=== PATIENT | female | born 1950 | race Caucasian/White ===

== ENCOUNTER 2017-08-25 22:06 | Emergency (ER) | payer OTHER ==
[2017-08-25 22:57] LABS: Urine Blood NEGATIVE (NEG); Urine Glucose NEGATIVE (NEG); Urine Protein NEGATIVE (NEG)
[2017-08-25 23:21] LABS: Urine Bacteria <20 /HPF (<20); Urine Culture Reflex Order NOT NEEDED; Urine RBC <5 /HPF (NONE SEEN)
[2017-08-25 23:25] LABS: Absolute Lymphocytes (CBC) 2.9 K/uL (0.7-4.9); Absolute Neutrophil 5.9 K/uL (1.8-8.0); Eosinophils % 3.3 % (0-4.4); Hematocrit 38.2 % (36.0-45.0); Lymphocytes % 28.5 % (15.3-44.8); MCH 25.4 pg (27.0-35.0); MCV 78.6 fL (80-100); MPV 9.3 fL (7.6-11.3); Monocytes % 9.6 % (3.3-12.3); RBC Red Blood Cell Count 4.86 M/uL (3.86-4.86)
[2017-08-25 23:37] LABS: Potassium 3.7 mEq/L (3.6-5.0)
[2017-08-25 23:43] LABS: Albumin 4.3 g/dL (3.2-5.5); Bilirubin Direct 0.1 mg/dL (0-0.2); Bilirubin Total 0.3 mg/dL (0.3-1.2); Protein, Total 7.4 g/dL (6.0-8.3)
[2017-08-26] MEDS ORDERED: KETOROLAC 30 MG/ML INJ ONE (00:24)
[2017-08-26] MEDS ORDERED: NA CHLORIDE 0.9% 1,000 ML ONE (00:25)
[2017-08-26] MEDS ORDERED: METRONIDAZOLE 500mg IVPB 500 MG/100 ML BAG IV ONE (00:29)
[2017-08-26] MEDS ORDERED: CEFTRIAXONE/SWI 1gm 1 GM/10 ML SYR ONE (00:29)
--- NOTE | 2017-08-26 01:25 | EDPHYS ---
Physician Documentation [facility] Name: Kali Kumar Age: 67 yrs Sex: Female : 1950 Arrival Date: 08/25/2017 Time: 22:09 Bed 5 Private MD: Harry Panchal ED Physician Ede Valdez HPI: 08/26 00:04 This 67 yrs old Female presents to ER via Ambulatory with complaints of gs Abdominal Pain - low. 00:04 The patient presents with abdominal pain in the lower abdomen. Onset: The gs symptoms/episode began/occurred 3 day(s) ago, and became persistent. The symptoms do not radiate. Associated signs and symptoms: Pertinent negatives: nausea, vomiting, and diarrhea, fever. The symptoms are described as crampy. Modifying factors: The symptoms are alleviated by nothing, the symptoms are aggravated by nothing. Severity of pain: At its worst the pain was moderate in the emergency department the pain is unchanged. The patient has experienced similar episodes in the past, a few times, and the symptoms today are exactly the same, diverticulitis. Historical: - Allergies: 08/25 22:22 Codeine; lp1 - Home Meds: 22:22 levothyroxine 100 mcg tab 1 tab once daily [Active]; Plavix 75 mg Oral tab 1 tab once lp1 daily [Active]; metoprolol tartrate 50 mg Oral tab 1 tab 2 times per day [Active]; Diovan 160 mg Oral tab 1 tab once daily [Active]; Diovan 80 mg Oral tab nightly [Active]; Norvasc 10 mg Oral tab 1 tab once daily [Active]; Effexor Oral 75 mg nightly [Active]; Crestor 40 mg oral tab nightly [Active]; - PMHx: 22:22 Hyperlipidemia; Hypertension; Hypothyroidism; lp1 - PSHx: 22:22 Hysterectomy; ; Cholecystectomy; bladder suspension; lp1 - Immunization history:: Adult Immunizations up to date. - Social history:: Smoking status: Patient/guardian denies using tobacco. ROS: 08/26 00:04 All other systems are negative. gs Exam: 00:04 Head/Face: Normocephalic, atraumatic. Eyes: Pupils equal round and reactive to light, gs extra-ocular motions intact. Lids and lashes normal. Conjunctiva and sclera are non-icteric and not injected. Cornea within normal limits. Periorbital areas with no swelling, redness, or edema. ENT: Nares patent. No nasal discharge, no septal abnormalities noted. Tympanic membranes are normal and external auditory canals are clear. Oropharynx with no redness, swelling, or masses, exudates, or evidence of obstruction, uvula midline. Mucous membranes moist. Neck: Trachea midline, no thyromegaly or masses palpated, and no cervical lymphadenopathy. Supple, full range of motion without nuchal rigidity, or vertebral point tenderness. No Meningismus. Chest/axilla: Normal chest wall appearance and motion. Nontender with no deformity. No lesions are appreciated. Cardiovascular: Regular rate and rhythm with a normal S1 and S2. No gallops, murmurs, or rubs. Normal PMI, no JVD. No pulse deficits. Respiratory: Lungs have equal breath sounds bilaterally, clear to auscultation and percussion. No rales, rhonchi or wheezes noted. No increased work of breathing, no retractions or nasal flaring. Back: No spinal tenderness. No costovertebral tenderness. Full range of motion. Skin: Warm, dry with normal turgor. Normal color with no rashes, no lesions, and no evidence of cellulitis. MS/ Extremity: Pulses equal, no cyanosis. Neurovascular intact. Full, normal range of motion. Neuro: Awake and alert, GCS 15, oriented to person, place, time, and situation. Cranial nerves II-XII grossly intact. Motor strength 5/5 in all extremities. Sensory grossly intact. Cerebellar exam normal. Normal gait. 00:04 Constitutional: The patient appears alert, awake. 00:04 Abdomen/GI: Palpation: mild abdominal tenderness, in the left lower quadrant, rebound tenderness, is not appreciated. Vital Signs: 08/25 22:18 BP 193 / 71; Pulse 68; Resp 18; Temp 97.7(O); Pulse Ox 99% on R/A; Weight 88.45 kg; lp1 Height 4 ft. 11 in. (149.86 cm); Pain 8/10; 23:18 BP 154 / 52; Pulse 60; Pulse Ox 100% on R/A; Pain 0/10; bs1 08/26 00:18 BP 155 / 55; Pulse 59; Resp 16; Pulse Ox 99% on R/A; Pain 3/10; bs1 01:18 BP 154 / 53; Pulse 59; Pulse Ox 99% on R/A; Pain 0/10; bs1 04 22:18 Body Mass Index 39.38 (88.45 kg, 149.86 cm) lp1 MDM: 08/25 22:36 Patient medically screened. 08/26 00:04 Differential diagnosis: diverticulitis, pancreatitis, Peptic Ulcer Disease. Data gs reviewed: vital signs, nurses notes. Response to treatment: the patient's symptoms have markedly improved after treatment, and as a result, I will discharge patient. 08/25 22:37 Order name: Basic Metabolic Panel; Complete Time: 23:55 08/25 22:37 Order name: CBC with Diff; Complete Time: 23:55 08/25 22:37 Order name: Hepatic Function; Complete Time: 23:55 08/25 22:37 Order name: Lipase; Complete Time: 23:55 08/25 22:37 Order name: Urine Microscopic Only; Complete Time: 23:55 08/25 22:50 Order name: Urine Dipstick--Ancillary (enter results); Complete Time: 23:55 [facility] 08/25 22:37 Order name: IV Saline Lock; Complete Time: 23:06 08/25 22:37 Order name: Labs collected and sent; Complete Time: 23:06 08/25 22:37 Order name: Urine Dipstick-Ancillary (obtain specimen); Complete Time: 22:43 08/25 22:37 Order name: CT Stone Protocol gs Administered Medications: 00:08 Drug: TORadol 15 mg Route: IVP; Site: left antecubital; bs1 01:38 Follow up: Response: No adverse reaction bs1 01:42 Follow up: Response: No adverse reaction bs1 00:20 Drug: Rocephin - (cefTRIAXone) 1 grams Route: IVPB; Infused Over: 30 mins; Site: left bs1 antecubital; 01:41 Follow up: IV Status: Completed infusion bs1 00:20 Drug: Flagyl 500 mg Volume: 100 ml; Route: IVPB; Rate: 200 ml/hr; Infused Over: 30 bs1 mins; Site: left antecubital; 01:41 Follow up: IV Status: Completed infusion bs1 00:21 Drug: NS 0.9% 1000 ml Route: IV; Rate: 1 bolus; Site: left antecubital; bs1 01:41 Follow up: IV Status: Completed infusion bs1 Disposition: 08/26/17 01:24 Discharged to Home. Impression: Diverticular disease of large intestine without perforation or abscess. - Condition is Stable. - Discharge Instructions: Diverticulitis, [id number]. - Prescriptions for Flagyl 500 mg Oral Tablet - take 1 tablet by ORAL route every 6 hours for 10 days; 40 tablet. Keflex 500 mg Oral Capsule - take 1 capsule by ORAL route every 6 hours for 10 days; 40 capsule. - Medication Reconciliation Form, Thank You Letter, Antibiotic Education, Prescription Opioid Use form. - Follow up: Private Physician; When: 2 - 3 days; Reason: Re-evaluation by your physician. Signatures: Dispatcher [employer] Aide Chris, RN RN lp1 Ede Valdez MD MD Jolie Sanchez RN RN bs1
--- NOTE | 2017-08-26 01:25 | ER ---
Nurse's Notes [facility] Name: Kali Kumar Age: 67 yrs Sex: Female : 1950 Arrival Date: 08/25/2017 Time: 22:09 Bed 5 Private MD: Harry Panchal Diagnosis: Diverticular disease of large intestine without perforation or abscess Presentation: 08/25 22:17 Presenting complaint: Patient states: Pelvic pain that began today, urinary frequency, lp1 pain with urination; States diagnosed with UTI last week, did not complete antibiotic regimen. Transition of care: patient was not received from another setting of care. Onset of symptoms was August 25, 2017. Care prior to arrival: None. 22:17 Method Of Arrival: Ambulatory lp1 22:17 Acuity: ISAIAS 3 lp1 Historical: - Allergies: 22:22 Codeine; lp1 - Home Meds: 22:22 levothyroxine 100 mcg tab 1 tab once daily [Active]; Plavix 75 mg Oral tab 1 tab once lp1 daily [Active]; metoprolol tartrate 50 mg Oral tab 1 tab 2 times per day [Active]; Diovan 160 mg Oral tab 1 tab once daily [Active]; Diovan 80 mg Oral tab nightly [Active]; Norvasc 10 mg Oral tab 1 tab once daily [Active]; Effexor Oral 75 mg nightly [Active]; Crestor 40 mg oral tab nightly [Active]; - PMHx: 22:22 Hyperlipidemia; Hypertension; Hypothyroidism; lp1 - PSHx: 22:22 Hysterectomy; ; Cholecystectomy; bladder suspension; lp1 - Immunization history:: Adult Immunizations up to date. - Social history:: Smoking status: Patient/guardian denies using tobacco. Screenin:22 Abuse screen: Denies threats or abuse. Denies injuries from another. Nutritional lp1 screening: No deficits noted. Tuberculosis screening: No symptoms or risk factors identified. Fall Risk None identified. Assessment: 22:33 General: Appears in no apparent distress. uncomfortable, Behavior is calm, cooperative, bs1 appropriate for age. Pain: Complains of pain in bilateral lower abdomen Pain does not radiate. Neuro: Level of Consciousness is awake, alert, obeys commands, Oriented to person, place, time, situation, Appropriate for age. Cardiovascular: Denies chest pain, palpitations, shortness of breath, Heart tones S1 S2 present Capillary refill < 3 seconds Patient's skin is warm and dry. Respiratory: Airway is patent Trachea midline Respiratory effort is even, unlabored, Respiratory pattern is regular, symmetrical, Breath sounds are clear bilaterally. GI: Abdomen is round non-distended, Bowel sounds present X 4 quads. Abdomen is tender to palpation in bilateral lower abdomen Reports lower abdominal pain, Patient currently denies diarrhea, epigastric pain, gaseousness, nausea, vomiting. : Denies burning with urination, discharge, urinary frequency, vaginal bleeding. EENT: No deficits noted. Derm: No deficits noted. No signs and/or symptoms reported regarding the dermatologic system. Musculoskeletal: Circulation, motion, and sensation intact. Capillary refill < 3 seconds, Range of motion: intact in all extremities. 23:33 Reassessment: Patient appears in no apparent distress at this time. No changes from bs1 previously documented assessment. Patient and/or family updated on plan of care and expected duration. Pain level reassessed. Patient is alert, oriented x 3, equal unlabored respirations, skin warm/dry/pink. 08/26 00:33 Reassessment: Patient appears in no apparent distress at this time. Patient and/or bs1 family updated on plan of care and expected duration. Pain level reassessed. Patient is alert, oriented x 3, equal unlabored respirations, skin warm/dry/pink. 01:25 Reassessment: Patient appears in no apparent distress at this time. Patient and/or bs1 family updated on plan of care and expected duration. Pain level reassessed. Patient is alert, oriented x 3, equal unlabored respirations, skin warm/dry/pink. Patient states feeling better. Patient states symptoms have improved. Vital Signs: 08/25 22:18 BP 193 / 71; Pulse 68; Resp 18; Temp 97.7(O); Pulse Ox 99% on R/A; Weight 88.45 kg; lp1 Height 4 ft. 11 in. (149.86 cm); Pain 8/10; 23:18 BP 154 / 52; Pulse 60; Pulse Ox 100% on R/A; Pain 0/10; bs1 0406 00:18 BP 155 / 55; Pulse 59; Resp 16; Pulse Ox 99% on R/A; Pain 3/10; bs1 01:18 BP 154 / 53; Pulse 59; Pulse Ox 99% on R/A; Pain 0/10; bs1 08/25 22:18 Body Mass Index 39.38 (88.45 kg, 149.86 cm) lp1 ED Course: 08/25 22:09 Patient arrived in ED. am2 22:10 Harry Panchal DO is Private Physician. am2 22:18 Triage completed. lp1 22:18 Arm band placed on left wrist. lp1 22:27 Jolie Sanchez RN is Primary Nurse. bs1 22:32 Ede Valdez MD is Attending Physician. gs 22:33 Patient has correct armband on for positive identification. Placed in gown. Bed in low jd3 position. Call light in reach. Side rails up X 1. Adult w/ patient. 22:51 Radiology exam delayed due to IV insertion attempt and/or patient not having vm2 appropriate IV at this time. 23:14 CT Stone Protocol In Process Unspecified. EDMS 08/26 01:38 No provider procedures requiring assistance completed. IV discontinued, bleeding bs1 controlled, No redness/swelling at site. Pressure dressing applied. Administered Medications: 00:08 Drug: TORadol 15 mg Route: IVP; Site: left antecubital; bs1 01:38 Follow up: Response: No adverse reaction bs1 01:42 Follow up: Response: No adverse reaction bs1 00:20 Drug: Rocephin - (cefTRIAXone) 1 grams Route: IVPB; Infused Over: 30 mins; Site: left bs1 antecubital; 01:41 Follow up: IV Status: Completed infusion bs1 00:20 Drug: Flagyl 500 mg Volume: 100 ml; Route: IVPB; Rate: 200 ml/hr; Infused Over: 30 bs1 mins; Site: left antecubital; 01:41 Follow up: IV Status: Completed infusion bs1 00:21 Drug: NS 0.9% 1000 ml Route: IV; Rate: 1 bolus; Site: left antecubital; bs1 01:41 Follow up: IV Status: Completed infusion bs1 Outcome: 01:24 Discharge ordered by . gs 01:38 Discharged to home ambulatory. bs1 01:38 Condition: stable 01:38 Discharge instructions given to patient, Instructed on discharge instructions, follow up and referral plans. medication usage, Demonstrated understanding of instructions, follow-up care, medications, Prescriptions given X 2. 01:40 Patient left the ED. bs1 Signatures: Dispatcher [employer] EDMS Aide Cook RN RN lp1 Nga Orr Victoria 2 Ede Valdez MD MD gs Davies, Jonathon, RN RN jd3 Jolie Sanchez RN RN bs1 Corrections: (The following items were deleted from the chart) 08/25 22:52 22:48 Patient moved to [address]
[2017-08-26 01:45] VITALS: TEMP 97.7
[2017-08-26 01:47] VITALS: O2SAT 99
[2017-08-26 01:48] VITALS: BP 154/53
--- NOTE | 2017-08-26 08:43 | RAD REPORT ---
EXAM DESCRIPTION: CT - Stone Protocol - 08/26/2017 6:12 am CLINICAL HISTORY: Flank pain. COMPARISON: None. TECHNIQUE: Axial images were obtained without oral or IV contrast. Lack of contrast limits solid org an and vascular assessment. The aepma-ch-cutu spans the entirety of the system partially obscuring uppermost abdomen and lung bases. Coronal reformatted images were obtained and reviewed. All CT scans are performed using dose optimization technique as appropriate and may include automated exposure control or mA/KV adjustment according to patient size. FINDINGS: The lower lung lockhart are clear. Cholecystectomy clips. Imaged portions of the liver and spleen show no suspicious findings on non-contrast imaging. The panc reas and adrenal glands are normal. No pathologic lymphadenopathy in the abdomen or pelvis. Punctate left renal stone. No hydronephrosis involving either kidney. No bowel obstruction, free air, free fluid or abscess. Prominent colonic diverticulosis is present. M ild pericolonic inflammatory changes involving the descending colon seen compatible with mild acute d iverticulitis. The appendix is not identified as a discrete structure, however, no secondary findings of appendicit is are identified. Aortoiliac atherosclerosis. IMPRESSION: Mild acute diverticulitis is seen involving the descending colon. No abscess identified. Punctate left renal calculus without hydronephrosis. Heavy atherosclerosis.
== END 2017-08-26 01:40 | disposition home or self-care (01) ==
LOC: ER 22:06
DX: K57.30 Diverticulosis of large intestine without perforation or abscess without bleeding (principal); I10 Essential (primary) hypertension; E78.5 Hyperlipidemia, unspecified; E03.9 Hypothyroidism, unspecified; Z88.5 Allergy status to narcotic agent
CPT/HCPCS: 36415; 74176; 76377; 80048; 80076; 83690; 85025; 96361; 96365; 96368; 96375; 99283; J0696; J7030; 81003; 81015

== ENCOUNTER 2017-11-04 03:59 | Emergency (ER) | payer OTHER ==
[2017-11-04] MEDS ORDERED: FENTANYL CITR 100 MCG/2 ML ONE (04:36)
[2017-11-04] MEDS ORDERED: NA CHLORIDE 0.9% 1,000 ML ONE (04:36)
[2017-11-04] MEDS ORDERED: ONDANSETRON 4 MG/2 ML VIAL ONE (04:36)
[2017-11-04] MEDS ORDERED: METRONIDAZOLE 500mg IVPB 500 MG/100 ML BAG IV ONE (04:37)
[2017-11-04] MEDS ORDERED: CIPROFLOXACIN 400mg IV 400 MG/200 ML BAG IV ONE (04:37)
[2017-11-04 04:41] LABS: Absolute Lymphocytes (CBC) 1.4 K/uL (0.7-4.9); Absolute Neutrophil 7.9 K/uL (1.8-8.0); Basophils % 0.6 % (0-1.3); Eosinophils % 2.6 % (0-4.4); Hematocrit 37.3 % (36.0-45.0); Lymphocytes % 13.2 % (15.3-44.8); MCV 81.1 fL (80-100); MPV 9.4 fL (7.6-11.3); Monocytes % 9.1 % (3.3-12.3)
[2017-11-04 04:51] LABS: Bicarbonate 25 mEq/L (21-31); Glucose Level 127 mg/dL (65-120); Lipase 29 U/L (22-51); Potassium 3.7 mEq/L (3.6-5.0); Sodium Level 140 mEq/L (135-145)
[2017-11-04 04:53] LABS: Protime INR 1.03
[2017-11-04 04:57] LABS: ALT/SGPT 15 IU/L (10-60); AST/SGOT 18 IU/L (10-42); Albumin 4.4 g/dL (3.2-5.5); Alkaline Phosphatase 64 IU/L (42-121); Amylase Level 41 U/L (28-100); BUN Blood Urea Nitrogen 22 mg/dL (6-20); Bilirubin Direct < 0.1 mg/dL (0-0.2); Bilirubin Total 0.2 mg/dL (0.3-1.2); Protein, Total 7.9 g/dL (6.0-8.3)
[2017-11-04 05:07] LABS: Magnesium 2.3 mg/dL (1.8-2.5)
[2017-11-04 05:39] LABS: Urine Blood NEGATIVE (NEG); Urine Glucose NEGATIVE (NEG); Urine Protein NEGATIVE (NEG); Urine Specific Gravity 1.015 (1.005-1.030)
[2017-11-04 06:04] LABS: Urine Bacteria <20 /HPF (<20); Urine Culture Reflex Order NOT NEEDED; Urine RBC <5 /HPF (NONE SEEN)
[2017-11-04] MEDS ORDERED: CEFTRIAXONE/SWI 1gm 1 GM/10 ML SYR ONE ×2 (06:56→07:35)
--- NOTE | 2017-11-04 07:18 | ER ---
Nurse's Notes [facility] Name: Kali Kumar Age: 67 yrs Sex: Female : 1950 Arrival Date: 11/04/2017 Time: 04:02 Bed 14 Private MD: Harry Panchal Diagnosis: Abdominal tenderness;Diverticular disease of intestine;Diverticulitis of large intestine without perforation or abscess without bleeding Presentation: 11/04 04:16 Presenting complaint: Patient states: She started having abd pain yesterday morning, pt ea reports the pain has gotten worse throughout the night. Reports history of diverticulitis. "I have had problems but this cramping is the worst I have had". Transition of care: patient was not received from another setting of care. Onset of symptoms was November 04, 2017. Risk Assessment: Do you want to hurt yourself or someone else? Patient reports no desire to harm self or others. Initial Sepsis Screen: Does the patient meet any 2 criteria? No. Patient's initial sepsis screen is negative. Does the patient have a suspected source of infection? No. Patient's initial sepsis screen is negative. Care prior to arrival: None. 04:16 Method Of Arrival: Ambulatory ea 04:16 Acuity: ISAIAS 3 ea Triage Assessment: 04:20 General: Appears uncomfortable, Behavior is calm, cooperative, appropriate for age. ea Pain: Complains of pain in left upper quadrant and left lower quadrant Pain currently is 8 out of 10 on a pain scale. Quality of pain is described as crampy, Pain began 1 day ago. Is continuous. EENT: No signs and/or symptoms were reported regarding the EENT system. Neuro: Level of Consciousness is awake, alert, obeys commands, Oriented to person, place, time, situation. Cardiovascular: Heart tones S1 S2 present Patient's skin is warm and dry. Respiratory: Airway is patent Respiratory effort is even, unlabored, Respiratory pattern is regular, symmetrical, Breath sounds are clear bilaterally. GI: Abdomen is non-distended, Bowel sounds present X 4 quads. Abd is soft X 4 quads Abdomen is tender to palpation in left upper quadrant, right lower quadrant and left lower quadrant Patient currently denies diarrhea, nausea, vomiting. : No signs and/or symptoms were reported regarding the genitourinary system. Derm: Skin is pink, warm \\T\\ dry. Musculoskeletal: Circulation, motion, and sensation intact. Historical: - Allergies: 04:20 Codeine; ea - Home Meds: 04:20 Crestor 40 mg Oral tab nightly [Active]; Diovan 160 mg Oral tab 1 tab once daily ea [Active]; Diovan 80 mg Oral tab nightly [Active]; Effexor Oral 75 mg nightly [Active]; levothyroxine 100 mcg tab 1 tab once daily [Active]; Norvasc 10 mg Oral tab 1 tab once daily [Active]; Plavix 75 mg Oral tab 1 tab once daily [Active]; metoprolol tartrate 50 mg Oral tab 1 tab 2 times per day [Active]; - PMHx: 04:20 Hyperlipidemia; Hypertension; Hypothyroidism; ea - PSHx: 04:20 Hysterectomy; ; Cholecystectomy; Bladder suspension; ea - Immunization history:: Adult Immunizations up to date. - Social history:: Smoking status: Patient/guardian denies using tobacco. - Ebola Screening: : No symptoms or risks identified at this time. Screenin:24 Abuse screen: Denies threats or abuse. Nutritional screening: No deficits noted. ea Tuberculosis screening: No symptoms or risk factors identified. Fall Risk None identified. Assessment: 04:20 Reassessment: No changes from previously documented assessment. see triage assessment. bb 06:58 Reassessment: Patient and/or family updated on plan of care and expected duration. Pain bb level reassessed. Patient is alert, oriented x 3, equal unlabored respirations, skin warm/dry/pink. pt resting quietly, awaiting diagnostic results. 07:10 Reassessment: Patient appears in no apparent distress at this time. Patient and/or em family updated on plan of care and expected duration. Pain level reassessed. Patient is alert, oriented x 3, equal unlabored respirations, skin warm/dry/pink. Patient denies pain at this time. Patient states feeling better. Vital Signs: 04:15 BP 136 / 103; Pulse 66; Resp 18 S; Temp 98(O); Pulse Ox 100% on R/A; Weight 86.18 kg; ea Height 4 ft. 11 in. (149.86 cm); Pain 8/10; 04:24 BP 162 / 54; Pulse 59; Resp 18; Pulse Ox 99% on R/A; ea 06:59 BP 163 / 57; Pulse 68; Resp 18 S; Pulse Ox 100% on R/A; Pain 2/10; bb 07:10 BP 160 / 60; Pulse 67; Resp 18; Pulse Ox 99% on R/A; Pain 0/10; em 04:15 Body Mass Index 38.37 (86.18 kg, 149.86 cm) ea ED Course: 04:02 Patient arrived in ED. am2 04:02 Harry Panchal DO is Private Physician. am2 04:15 Darlin Martínez, RN is Primary Nurse. ea 04:15 Patient placed in an exam room, on a stretcher, on pulse oximetry. ea 04:18 Triage completed. ea 04:20 Harish Welsh MD is Attending Physician. abilio 04:24 Patient has correct armband on for positive identification. Bed in low position. Call ea light in reach. Side rails up X 1. 04:26 Inserted saline lock: 20 gauge in right antecubital area, using aseptic technique. jd3 Blood collected. 04:51 X-ray completed. Portable x-ray completed in exam room. Patient tolerated procedure kw well. 04:51 XRAY Chest (1 view) In Process Unspecified. EDMS 06:[address] via wheelchair. kw1 06:26 CT completed. Patient tolerated procedure well. Patient moved back from CT. kw1 06:30 CT Abd/Pelvis - W/Contrast In Process Unspecified. EDMS 07:17 Harry Panchal DO is Referral Physician. abilio 07:20 Report given to Chris MULTANI. ea Administered Medications: 04:40 Drug: Zofran 4 mg Route: IVP; Site: right antecubital; ea 05:19 Follow up: Response: No adverse reaction ea 04:47 Drug: NS 0.9% 1000 ml Route: IV; Rate: 1 bolus; Site: right antecubital; ea 07:49 Follow up: IV Status: Completed infusion; IV Intake: 1000ml em 04:50 Drug: Cipro 400 mg Volume: 200 ml; Route: IVPB; Infused Over: 60 mins; Site: right jd3 antecubital; 07:50 Follow up: Response: No adverse reaction; IV Status: Completed infusion; IV Intake: em 200ml 04:50 Drug: Flagyl 500 mg Volume: 100 ml; Route: IVPB; Rate: 200 ml/hr; Infused Over: 30 jd3 mins; Site: right antecubital; 07:51 Follow up: IV Status: Completed infusion; IV Intake: 100ml em 04:50 Drug: fentaNYL (PF) 25 mcg Route: IVP; Site: right antecubital; jd3 05:19 Follow up: Response: No adverse reaction; Pain is decreased ea 06:52 Drug: Rocephin - (cefTRIAXone) 1 grams Route: IVPB; Infused Over: 30 mins; Site: right bb antecubital; 07:50 Follow up: Response: No adverse reaction; IV Status: Completed infusion em 07:39 Drug: Cipro 500 mg Route: PO; em 07:50 Follow up: Response: No adverse reaction em 07:40 Drug: Rocephin - (cefTRIAXone) 1 grams Route: IVPB; Infused Over: 30 mins; Site: right ss antecubital; 07:51 Follow up: Response: No adverse reaction; IV Status: Completed infusion em 07:49 Not Given (Physician Discretion): fentaNYL (PF) 25 mcg IVP once em Intake: 07:49 IV: 1000ml; Total: 1000ml. em 07:50 IV: 200ml; Total: 1200ml. em 07:51 IV: 100ml; Total: 1300ml. em Outcome: 07:17 Discharge ordered by . [facility] 07:52 Patient left the ED. em Signatures: Dispatcher [employer] Harish Ellis MD MD cha Munoz, Edgar, LICENSED BONDSMAN LICENSED BONDSMAN em Erin Emmanuel RN RN bb Smirch, Shelby, RN RN ss Whitley, Kimberlee kw Moreno, Amanda amDarlin Wallace RN RN ea Davies, Jonathon, RN RN jd3 Wilhelm, Kimberly kw1
--- NOTE | 2017-11-04 07:18 | EDPHYS ---
Physician Documentation [facility] Name: Kali Kumar Age: 67 yrs Sex: Female : 1950 Arrival Date: 11/04/2017 Time: 04:02 Bed 14 Private MD: Harry Panchal ED Physician Harish Welsh HPI: 11/04 04:35 This 67 yrs old Female presents to ER via Ambulatory with complaints of abilio Abdominal Pain. 04:35 The patient presents with abdominal pain in the left lower quadrant. Onset: The abilio symptoms/episode began/occurred 3 day(s) ago. The symptoms do not radiate. Associated signs and symptoms: none. Modifying factors: The symptoms are alleviated by nothing, the symptoms are aggravated by nothing. Severity of pain: At its worst the pain was mild in the emergency department the pain is unchanged. The patient has experienced similar episodes in the past, multiple times. Historical: - Allergies: 04:20 Codeine; ea - Home Meds: 04:20 Crestor 40 mg Oral tab nightly [Active]; Diovan 160 mg Oral tab 1 tab once daily ea [Active]; Diovan 80 mg Oral tab nightly [Active]; Effexor Oral 75 mg nightly [Active]; levothyroxine 100 mcg tab 1 tab once daily [Active]; Norvasc 10 mg Oral tab 1 tab once daily [Active]; Plavix 75 mg Oral tab 1 tab once daily [Active]; metoprolol tartrate 50 mg Oral tab 1 tab 2 times per day [Active]; - PMHx: 04:20 Hyperlipidemia; Hypertension; Hypothyroidism; ea - PSHx: 04:20 Hysterectomy; ; Cholecystectomy; Bladder suspension; ea - Immunization history:: Adult Immunizations up to date. - Social history:: Smoking status: Patient/guardian denies using tobacco. - Ebola Screening: : No symptoms or risks identified at this time. ROS: 04:35 Constitutional: Negative for fever, chills, and weight loss, Eyes: Negative for injury, abilio pain, redness, and discharge, ENT: Negative for injury, pain, and discharge, Neck: Negative for injury, pain, and swelling, Cardiovascular: Negative for chest pain, palpitations, and edema, Respiratory: Negative for shortness of breath, cough, wheezing, and pleuritic chest pain, Back: Negative for injury and pain, : Negative for injury, bleeding, discharge, and swelling, MS/Extremity: Negative for injury and deformity, Skin: Negative for injury, rash, and discoloration, Neuro: Negative for headache, weakness, numbness, tingling, and seizure, Psych: Negative for depression, anxiety, suicide ideation, homicidal ideation, and hallucinations, Allergy/Immunology: Negative for hives, rash, and allergies, Endocrine: Negative for neck swelling, polydipsia, polyuria, polyphagia, and marked weight changes, Hematologic/Lymphatic: Negative for swollen nodes, abnormal bleeding, and unusual bruising. 04:35 Abdomen/GI: Positive for abdominal pain, of the left lower quadrant. Exam: 04:35 Constitutional: This is a well developed, well nourished patient who is awake, alert, abilio and in no acute distress. Head/Face: Normocephalic, atraumatic. Eyes: Pupils equal round and reactive to light, extra-ocular motions intact. Lids and lashes normal. Conjunctiva and sclera are non-icteric and not injected. Cornea within normal limits. Periorbital areas with no swelling, redness, or edema. ENT: Nares patent. No nasal discharge, no septal abnormalities noted. Tympanic membranes are normal and external auditory canals are clear. Oropharynx with no redness, swelling, or masses, exudates, or evidence of obstruction, uvula midline. Mucous membranes moist. Neck: Trachea midline, no thyromegaly or masses palpated, and no cervical lymphadenopathy. Supple, full range of motion without nuchal rigidity, or vertebral point tenderness. No Meningismus. Chest/axilla: Normal chest wall appearance and motion. Nontender with no deformity. No lesions are appreciated. Cardiovascular: Regular rate and rhythm with a normal S1 and S2. No gallops, murmurs, or rubs. Normal PMI, no JVD. No pulse deficits. Respiratory: Lungs have equal breath sounds bilaterally, clear to auscultation and percussion. No rales, rhonchi or wheezes noted. No increased work of breathing, no retractions or nasal flaring. Back: No spinal tenderness. No costovertebral tenderness. Full range of motion. Female : Normal external genitalia. Skin: Warm, dry with normal turgor. Normal color with no rashes, no lesions, and no evidence of cellulitis. MS/ Extremity: Pulses equal, no cyanosis. Neurovascular intact. Full, normal range of motion. Neuro: Awake and alert, GCS 15, oriented to person, place, time, and situation. Cranial nerves II-XII grossly intact. Motor strength 5/5 in all extremities. Sensory grossly intact. Cerebellar exam normal. Normal gait. Psych: Awake, alert, with orientation to person, place and time. Behavior, mood, and affect are within normal limits. 04:35 Abdomen/GI: Inspection: abdomen appears normal, Bowel sounds: normal, Palpation: mild abdominal tenderness, moderate abdominal tenderness, in the left lower quadrant. Vital Signs: 04:15 BP 136 / 103; Pulse 66; Resp 18 S; Temp 98(O); Pulse Ox 100% on R/A; Weight 86.18 kg; ea Height 4 ft. 11 in. (149.86 cm); Pain 8/10; 04:24 BP 162 / 54; Pulse 59; Resp 18; Pulse Ox 99% on R/A; ea 06:59 BP 163 / 57; Pulse 68; Resp 18 S; Pulse Ox 100% on R/A; Pain 2/10; bb 07:10 BP 160 / 60; Pulse 67; Resp 18; Pulse Ox 99% on R/A; Pain 0/10; em 04:15 Body Mass Index 38.37 (86.18 kg, 149.86 cm) MDM: 04:20 Patient medically screened. [facility] 04:39 Data reviewed: vital signs, nurses notes, lab test result(s), EKG, radiologic studies, [facility] CT scan, plain films. 11/04 04:27 Order name: Amylase, Serum; Complete Time: 05:51 11/04 04:27 Order name: Basic Metabolic Panel; Complete Time: 05:51 11/04 04:27 Order name: CBC with Diff; Complete Time: 05:51 11/04 04:27 Order name: Creatinine for Radiology; Complete Time: 05:51 11/04 04:27 Order name: Hepatic Function; Complete Time: 05:51 11/04 04:27 Order name: Lipase; Complete Time: 05:51 11/04 04:27 Order name: Urine Microscopic Only; Complete Time: 06:45 11/04 04:33 Order name: BNP; Complete Time: 05:51 [facility] 11/04 04:33 Order name: Ckmb; Complete Time: 05:51 [facility] 11/04 04:33 Order name: CPK; Complete Time: 05:51 [facility] 11/04 04:33 Order name: Magnesium; Complete Time: 05:51 [facility] 11/04 04:33 Order name: PT-INR; Complete Time: 05:51 [facility] 11/04 04:33 Order name: Ptt, Activated; Complete Time: 05:51 [facility] 11/04 04:33 Order name: Troponin (emerg Dept Use Only); Complete Time: 05:51 [facility] 11/04 04:27 Order name: IV Saline Lock; Complete Time: 05:09 11/04 04:27 Order name: Labs collected and sent; Complete Time: 05:09 11/04 04:27 Order name: Urine Dipstick-Ancillary (obtain specimen); Complete Time: 05:10 11/04 04:33 Order name: XRAY Chest (1 view) [facility] 11/04 04:33 Order name: EKG; Complete Time: 04:34 [facility] 11/04 04:33 Order name: CT Abd/Pelvis - W/Contrast [facility] 11/04 05:16 Order name: Urine Dipstick--Ancillary (enter results); Complete Time: 05:51 [facility] 11/04 04:33 Order name: Cardiac monitoring; Complete Time: 05:09 [facility] 11/04 04:33 Order name: EKG - Nurse/Tech; Complete Time: 05:41 [facility] 11/04 04:33 Order name: O2 Per Protocol; Complete Time: 05:09 [facility] 11/04 04:33 Order name: O2 Sat Monitoring; Complete Time: 05:09 [facility] Administered Medications: 04:40 Drug: Zofran 4 mg Route: IVP; Site: right antecubital; ea 05:19 Follow up: Response: No adverse reaction ea 04:47 Drug: NS 0.9% 1000 ml Route: IV; Rate: 1 bolus; Site: right antecubital; ea 07:49 Follow up: IV Status: Completed infusion; IV Intake: 1000ml em 04:50 Drug: Cipro 400 mg Volume: 200 ml; Route: IVPB; Infused Over: 60 mins; Site: right jd3 antecubital; 07:50 Follow up: Response: No adverse reaction; IV Status: Completed infusion; IV Intake: em 200ml 04:50 Drug: Flagyl 500 mg Volume: 100 ml; Route: IVPB; Rate: 200 ml/hr; Infused Over: 30 jd3 mins; Site: right antecubital; 07:51 Follow up: IV Status: Completed infusion; IV Intake: 100ml em 04:50 Drug: fentaNYL (PF) 25 mcg Route: IVP; Site: right antecubital; jd3 05:19 Follow up: Response: No adverse reaction; Pain is decreased ea 06:52 Drug: Rocephin - (cefTRIAXone) 1 grams Route: IVPB; Infused Over: 30 mins; Site: right bb antecubital; 07:50 Follow up: Response: No adverse reaction; IV Status: Completed infusion em 07:39 Drug: Cipro 500 mg Route: PO; em 07:50 Follow up: Response: No adverse reaction em 07:40 Drug: Rocephin - (cefTRIAXone) 1 grams Route: IVPB; Infused Over: 30 mins; Site: right ss antecubital; 07:51 Follow up: Response: No adverse reaction; IV Status: Completed infusion em 07:49 Not Given (Physician Discretion): fentaNYL (PF) 25 mcg IVP once em Disposition: 11/04/17 07:17 Discharged to Home. Impression: Abdominal tenderness, Diverticular disease of intestine, Diverticulitis of large intestine without perforation or abscess without bleeding. - Condition is Stable. - Discharge Instructions: Abdominal Pain, Adult, Diverticulitis, Diverticulitis, Fuey-bd-[id number], Abdominal Pain, Adult, Wvnr-[id number]-[id number]. - Prescriptions for Bentyl 20 mg Oral Tablet - take 1 tablet by ORAL route every 6 hours As needed; 20 tablet. Flagyl 500 mg Oral Tablet - take 1 tablet by ORAL route every 6 hours for 10 days; 40 tablet. Zofran 4 mg Oral Tablet - take 1 tablet by ORAL route every 12 hours As needed; 20 tablet. Cipro 500 mg Oral Tablet - take 1 tablet by ORAL route every 12 hours for 10 days; 20 tablet. - Medication Reconciliation Form, Thank You Letter, Antibiotic Education, Prescription Opioid Use form. - Follow up: Harry Panchal; When: 2 - 3 days; Reason: Recheck today's complaints, Continuance of care, Re-evaluation by your physician. - Problem is new. - Symptoms have improved. Signatures: Dispatcher [employer] EDHarish Borja MD MD cha Munoz, Edgar, SHIPPING MANAGER SHIPPING MANAGER em Erin Emmanuel, RN RN Becky Caballero, RN RN ss Darlin Martínez, RN RN Gabriel Morales, RN RN jd3 Corrections: (The following items were deleted from the chart) 07:52 07:17 11/04/2017 07:17 Discharged to Home. Impression: Abdominal tenderness; em Diverticular disease of intestine; Diverticulitis of large intestine without perforation or abscess without bleeding. Condition is Stable. Discharge Instructions: Abdominal Pain, Adult, Diverticulitis, Diverticulitis, Zavh-ss-Rrax, Abdominal Pain, Adult, Kawy-hc-Vzzf. Prescriptions for Bentyl 20 mg Oral Tablet - take 1 tablet by ORAL route every 6 hours As needed; 20 tablet, Flagyl 500 mg Oral Tablet - take 1 tablet by ORAL route every 6 hours for 10 days; 40 tablet, Zofran 4 mg Oral Tablet - take 1 tablet by ORAL route every 12 hours As needed; 20 tablet, Cipro 500 mg Oral Tablet - take 1 tablet by ORAL route every 12 hours for 10 days; 20 tablet. and Forms are Medication Reconciliation Form, Thank You Letter, Antibiotic Education, Prescription Opioid Use. Follow up: Harry Panchal; When: 2 - 3 days; Reason: Recheck today's complaints, Continuance of care, Re-evaluation by your physician. Problem is new. Symptoms have improved. abilio
[2017-11-04] MEDS ORDERED: CIPROFLOXACIN HCL 500 MG TAB ONE (07:35)
[2017-11-04 08:02] VITALS: TEMP 98
[2017-11-04 08:05] VITALS: BP 160/60; O2SAT 99
--- NOTE | 2017-11-04 08:28 | EKG ---
Test Date: 2017-11-04 Test Time: 05:20:34 Supervisor Metalizing: RASHEEDA MEASUREMENT RESULTS: Intervals: Rate: 65 MS: 160 QRSD: 80 QT: 426 QTc: 443 [place]: P: 49 MS: 160 QRS: 21 T: 25 INTERPRETIVE STATEMENTS: Normal sinus rhythm Normal ECG Compared to ECG 05/10/2017 09:50:08 No significant changes Electronically Signed On 11-04-17 08:27:27 CDT by Terrence Schwarz
--- NOTE | 2017-11-04 09:19 | RAD REPORT ---
EXAM DESCRIPTION: CT - Abdomen Pelvis W Contrast - 11/04/2017 7:14 am CLINICAL HISTORY: Abdominal pain. Abdominal cramping since yesterday. COMPARISON: October 09, 2017 TECHNIQUE: Computed axial tomography of the abdomen and pelvis was obtained. 100 cc Isovue-300 is ad ministered intravenously. Oral contrast was given.A preliminary report was generated by [employer] and reviewed prior to this dictation All CT scans are performed using dose optimization technique as appropriate and may include automated exposure control or mA/KV adjustment according to patient size. FINDINGS: The liver, spleen, pancreas, adrenals and kidneys appear unremarkable. The appendix is normal caliber. The wall of the distal descending colon is thickened moderate stranding is present within the adjacen t fat with a small amount of ill-defined fluid. An abscess is not visualized. Free air is not noted A small right inguinal hernia contains fat IMPRESSION: These findings most likely represent a moderate descending diverticulitis. A perforated carcinoma can also have this appearance
--- NOTE | 2017-11-04 09:56 | RAD REPORT ---
EXAM DESCRIPTION: Alie Single View11/04/2017 4:52 am CLINICAL HISTORY: Cough COMPARISON: 2014 FINDINGS: The lungs appear clear of acute infiltrate. The heart is normal size IMPRESSION: No acute abnormalities displayed
== END 2017-11-04 07:52 | disposition home or self-care (01) ==
LOC: ER 03:59
DX: K57.32 Diverticulitis of large intestine without perforation or abscess without bleeding (principal); K57.30 Diverticulosis of large intestine without perforation or abscess without bleeding; I10 Essential (primary) hypertension; E78.5 Hyperlipidemia, unspecified; E03.9 Hypothyroidism, unspecified; Z79.01 Long term (current) use of anticoagulants; Z88.5 Allergy status to narcotic agent
CPT/HCPCS: 36415; 71045; 74177; 80048; 80076; 82150; 82550; 82553; 83690; 83735; 83880; 84484; 85025; 85610; 85730; 93005; 96365; 96366; 96367; 96368; 96375; 99284; J0696 ×2; J0744; J2405; J3010; J7030; Q9967; 81003; 81015

== ENCOUNTER 2017-11-22 20:47 | Emergency (ER) | payer OTHER ==
--- OUTSIDE RECORDS SUMMARY | 2017-11-22 20:49 | XMS REPORT | Clinical Summary ---
:1950 Author Organization [facility] Address [address] [place] [address] Care Team Providers Name Role Phone Harry Panchal DO Primary Care Provider Allergies Active Allergy Reactions Severity Noted Date Comments Codeine 11/15/2017 Current Medications No known medications Active Problems No known active problems Encounters Date Type Specialty Care Team Description 11/15/2017 Office Visit General Surgery Cornelio Ortiz Diverticulitis of large MD Buzz intestine without perforation or abscess without bleeding (Primary Dx) after 11/21/2016 Family History Medical History Relation Name Comments Diabetes Brother Heart disease Brother Relation Name Status Comments Brother Social History Tobacco Use Types Packs/Day Years Used Date Never Smoker Smokeless Tobacco: Never Used Alcohol Use Drinks/Week oz/Week Comments No Sex Assigned at Date Recorded Not on file Last Filed Vital Signs Not on file Plan of Treatment Health Maintenance Due Date Last Done Comments BREAST CANCER SCREENING 1998 COLON CANCER SCREENING 1998 SHINGRIX VACCINE (#1) 1998 ZOSTER VACCINE 2008 PNEUMOCOCCAL POLYSACCHARIDE VACCINE AGE 65 AND OVER 2013 PNEUMOCOCCAL-13 2013 INFLUENZA VACCINE 12/21/2017 Results Not on fileafter 11/21/2016 Insurance Payer Benefit Plan / Group Subscriber ID Type Phone Address [facility] xxxxxxxxx Indemnity Home: [address] [phone] [place], [place] [phone]
--- OUTSIDE RECORDS SUMMARY | 2017-11-22 20:49 | XMS REPORT | Clinical Summary ---
:1950 Author Organization [facility] Address [address] [place] [address] Phone Care Team Providers Name Role Phone Unavailable Primary Care Provider Unavailable Allergies Not on File Current Medications Not on file Active Problems Not on file Social History Tobacco Use Types Packs/Day Years Used Date Never Assessed Sex Assigned at Date Recorded Not on file Last Filed Vital Signs Not on file Plan of Treatment Date Type Specialty Care Team Description 01/09/2018 Surgery Cornelio Ortiz, ROBOTIC LAPAROSCOPY,LOW ANTERIOR RESECTION [address] [facility] [address] [place], [place] [id number] 01/09/2018 Procedure Pass 01/09/2018 Hospital Encounter Cornelio Ortiz MD [address] [facility] [address] [place], [place] [id number] Results Not on fileafter 11/21/2016
[2017-11-22 21:49] LABS: Absolute Lymphocytes (CBC) 1.4 K/uL (0.7-4.9); Absolute Monocytes 1.1 K/uL (0.1-1.3); Absolute Neutrophil 10.4 K/uL (1.8-8.0); Basophils % 0.9 % (0-1.3); Hematocrit 37.7 % (36.0-45.0); Lymphocytes % 10.6 % (15.3-44.8); MCH 26.1 pg (27.0-35.0); MCV 79.8 fL (80-100); MPV 9.2 fL (7.6-11.3); Monocytes % 8.4 % (3.3-12.3); RBC Red Blood Cell Count 4.72 M/uL (3.86-4.86)
[2017-11-22 21:55] LABS: Urine Blood TRACE (NEG); Urine Glucose NEGATIVE (NEG); Urine Protein TRACE (NEG); Urine Specific Gravity 1.025 (1.005-1.030)
[2017-11-22 21:59] LABS: Urine Bacteria <20 /HPF (<20); Urine Coarse Granular Casts 0-5 /LPF (NONE SEEN); Urine Culture Reflex Order NOT NEEDED; Urine Mucus 1+ /HPF (NONE SEEN); Urine RBC <5 /HPF (NONE SEEN)
[2017-11-22 22:02] LABS: ALT/SGPT 23 U/L (12-78); AST/SGOT 17 U/L (15-37); Albumin 3.9 g/dL (3.4-5.0); Alkaline Phosphatase 68 U/L (45-117); Amylase Level 48 U/L (25-115); BUN Blood Urea Nitrogen 23 mg/dL (7-18); Bicarbonate 26 mmol/L (21-32); Bilirubin Direct < 0.1 mg/dL (0-0.2); Bilirubin Total 0.3 mg/dL (0.2-1.0); Glucose Level 112 mg/dL (74-106); Lipase 127 U/L (73-393); Protein, Total 7.8 g/dL (6.4-8.2); Sodium Level 140 mmol/L (136-145)
--- NOTE | 2017-11-23 00:30 | ER ---
Nurse's Notes [facility] Name: Kali Kumar Age: 67 yrs Sex: Female : 1950 Arrival Date: 11/22/2017 Time: 20:50 Bed 30 Private MD: Diagnosis: Diverticular disease of intestine, part unspecified, without perforation or abscess Presentation: 11/22 20:57 Presenting complaint: Patient states: that at about 1900 she started to have abd fc cramping and felt as if she had to have BM. She went and the cramping continued. She has also had nausea and vomiting. Concerned due to hx of diverticulitis. Transition of care: patient was not received from another setting of care. Onset of symptoms was November 22, 2017 at 19:00. Risk Assessment: Do you want to hurt yourself or someone else? Patient reports no desire to harm self or others. Initial Sepsis Screen: Does the patient meet any 2 criteria? No. Patient's initial sepsis screen is negative. Does the patient have a suspected source of infection? No. Patient's initial sepsis screen is negative. Care prior to arrival: None. 20:57 Method Of Arrival: Ambulatory fc 20:57 Acuity: ISAIAS 3 fc Historical: - Allergies: 21:01 Codeine; fc - Home Meds: 21:01 Crestor 40 mg Oral tab nightly [Active]; Diovan 320 mg oral tab 1 tab once daily fc [Active]; Plavix 75 mg Oral tab 1 tab once daily [Active]; Effexor Oral 150 mg nightly [Active]; levothyroxine 100 mcg tab 1 tab once daily [Active]; metoprolol tartrate 50 mg Oral tab 1 tab 2 times per day [Active]; Norvasc 10 mg Oral tab 1 tab once daily [Active]; hydralazine 50 mg Oral tab 1 tab three times a day [Active]; aspirin 81 mg Oral chew 1 tab once daily [Active]; - PMHx: 21:01 Hyperlipidemia; Hypertension; Hypothyroidism; Depression; fc - PSHx: 21:01 Hysterectomy; ; Cholecystectomy; Bladder suspension; Heart stents; fc - Immunization history:: Last tetanus immunization: unknown. - Social history:: Smoking status: Patient/guardian denies using tobacco. - Ebola Screening: : Patient negative for fever greater than or equal to 101.5 degrees Fahrenheit, and additional compatible Ebola Virus Disease symptoms Patient denies exposure to infectious person Patient denies travel to an Ebola-affected area in the 21 days before illness onset. Screenin:04 Abuse screen: Denies threats or abuse. Denies injuries from another. Nutritional kr2 screening: No deficits noted. Tuberculosis screening: No symptoms or risk factors identified. Fall Risk None identified. Assessment: 21:15 General: Appears in no apparent distress. uncomfortable, obese, well groomed, Behavior kr2 is calm, cooperative, appropriate for age. Pain: Complains of pain in abdomen Pain radiates to rectum Pain currently is 0 out of 10 on a pain scale. Quality of pain is described as pressure, Is continuous, Alleviated by rest, Aggravated by eating, increased activity. Neuro: Level of Consciousness is awake, alert, obeys commands, Oriented to person, place, time, situation, Appropriate for age. Cardiovascular: Capillary refill < 3 seconds in bilateral fingers Patient's skin is warm and dry. Respiratory: Airway is patent Respiratory effort is even, unlabored, Respiratory pattern is regular, symmetrical. GI: Bowel sounds present X 4 quads. Abd is soft and non tender X 4 quads. Patient currently denies diarrhea. : Denies burning with urination. EENT: Oral mucosa is moist. Derm: Skin is intact, is healthy with good turgor, Skin is pink, warm \T\ dry. Musculoskeletal: Circulation, motion, and sensation intact. 22:09 Reassessment: Patient appears in no apparent distress at this time. Patient and/or kr2 family updated on plan of care and expected duration. Pain level reassessed. Patient is alert, oriented x 3, equal unlabored respirations, skin warm/dry/pink. 22:55 Reassessment: Patient appears in no apparent distress at this time. Patient and/or kr2 family updated on plan of care and expected duration. Pain level reassessed. Patient is alert, oriented x 3, equal unlabored respirations, skin warm/dry/pink. Patient states feeling better. 0704 00:00 Reassessment: Patient appears in no apparent distress at this time. Patient and/or kr2 family updated on plan of care and expected duration. Pain level reassessed. Patient is alert, oriented x 3, equal unlabored respirations, skin warm/dry/pink. Patient states feeling better. Vital Signs: 11/22 21:01 BP 187 / 110; Pulse 73; Resp 20; Temp 98.5(O); Pulse Ox 97% on R/A; Weight 86.18 kg (R); Height 4 ft. 11 in. (149.86 cm) (R); Pain 10/10; 22:09 BP 182 / 59; Pulse 71; Resp 17; Pulse Ox 98% on R/A; kr2 22:55 BP 182 / 59; Pulse 86; Resp 17; Pulse Ox 99% on R/A; kr2 11/23 00:42 BP 167 / 70; Pulse 84; Resp 17; Pulse Ox 99% on R/A; kr2 11/22 21:01 Body Mass Index 38.37 (86.18 kg, 149.86 cm) ED Course: 11/22 20:50 Patient arrived in ED. ds1 20:58 Triage completed. 21:01 Arm band placed on Patient placed in an exam room, on a stretcher. 21:03 Monse Michel, BALJEET is Primary Nurse. kr2 21:10 David Briggs MD is Attending Physician. tw4 21:15 Patient has correct armband on for positive identification. Bed in low position. Call kr2 light in reach. Side rails up X 1. Pulse ox on. NIBP on. Door closed. Warm blanket given. Head of bed elevated. 21:35 Urine collected: clean catch specimen, clear. Inserted saline lock: 22 gauge in right kr2 antecubital area, using aseptic technique. Blood collected. 22:45 Patient moved to [facility] 22:48 CT completed. Patient tolerated procedure well. Patient moved back from [facility] 22:49 CT Abd/Pelvis - W/Contrast In Process Unspecified. EDMS 11/23 00:41 No provider procedures requiring assistance completed. IV discontinued, intact, kr2 bleeding controlled, No redness/swelling at site. Pressure dressing applied. Administered Medications: 00:36 Drug: Flagyl 500 mg Route: PO; kr2 00:37 Follow up: Response: Medication administered at discharge. kr2 00:37 Drug: LevaQUIN 500 mg Route: PO; kr2 00:37 Follow up: Response: Medication administered at discharge. kr2 Outcome: 00:29 Discharge ordered by . tw4 00:42 Discharged to home ambulatory, with family. kr2 00:42 Condition: good 00:42 Discharge instructions given to patient, family, Instructed on discharge instructions, follow up and referral plans. medication usage, Demonstrated understanding of instructions, follow-up care, medications, Prescriptions given X 2. 00:43 Patient left the ED. kr2 Signatures: Dispatcher [employer] EDMS Edel Shipley RN RN fc [place], Demi ds1 Gray Cardona Karey, RN RN kr2 David Briggs MD MD tw4
--- NOTE | 2017-11-23 00:30 | EDPHYS ---
Physician Documentation [facility] Name: Kali Kumar Age: 67 yrs Sex: Female : 1950 Arrival Date: 11/22/2017 Time: 20:50 Bed 30 Private MD: ED Physician David Briggs HPI: 11/23 00:30 This 67 yrs old Female presents to ER via Ambulatory with complaints of tw4 Abdominal Pain. 00:30 The patient presents with abdominal pain. Onset: The symptoms/episode began/occurred tw4 today. The symptoms do not radiate. Associated signs and symptoms: none. The symptoms are described as dull. Modifying factors: The symptoms are alleviated by nothing, the symptoms are aggravated by nothing. Severity of pain: At its worst the pain was moderate in the emergency department the pain is unchanged. Historical: - Allergies: 11/22 21:01 Codeine; fc - Home Meds: 21:01 Crestor 40 mg Oral tab nightly [Active]; Diovan 320 mg oral tab 1 tab once daily fc [Active]; Plavix 75 mg Oral tab 1 tab once daily [Active]; Effexor Oral 150 mg nightly [Active]; levothyroxine 100 mcg tab 1 tab once daily [Active]; metoprolol tartrate 50 mg Oral tab 1 tab 2 times per day [Active]; Norvasc 10 mg Oral tab 1 tab once daily [Active]; hydralazine 50 mg Oral tab 1 tab three times a day [Active]; aspirin 81 mg Oral chew 1 tab once daily [Active]; - PMHx: 21:01 Hyperlipidemia; Hypertension; Hypothyroidism; Depression; fc - PSHx: 21:01 Hysterectomy; ; Cholecystectomy; Bladder suspension; Heart stents; fc - Immunization history:: Last tetanus immunization: unknown. - Social history:: Smoking status: Patient/guardian denies using tobacco. - Ebola Screening: : Patient negative for fever greater than or equal to 101.5 degrees Fahrenheit, and additional compatible Ebola Virus Disease symptoms Patient denies exposure to infectious person Patient denies travel to an Ebola-affected area in the 21 days before illness onset. ROS: 11/23 00:30 Constitutional: Negative for fever, chills, and weight loss, Cardiovascular: Negative tw4 for chest pain, palpitations, and edema, Respiratory: Negative for shortness of breath, cough, wheezing, and pleuritic chest pain, Back: Negative for injury and pain, MS/Extremity: Negative for injury and deformity. Abdomen/GI: Positive for abdominal pain, nausea, constipation, Negative for nausea and vomiting, nausea, vomiting, and diarrhea. Exam: 00:30 Constitutional: This is a well developed, well nourished patient who is awake, alert, tw4 and in no acute distress. Head/Face: Normocephalic, atraumatic. Chest/axilla: Normal chest wall appearance and motion. Nontender with no deformity. No lesions are appreciated. Cardiovascular: Regular rate and rhythm with a normal S1 and S2. No gallops, murmurs, or rubs. Normal PMI, no JVD. No pulse deficits. Respiratory: Lungs have equal breath sounds bilaterally, clear to auscultation and percussion. No rales, rhonchi or wheezes noted. No increased work of breathing, no retractions or nasal flaring. Abdomen/GI: Soft, non-tender, with normal bowel sounds. No distension or tympany. No guarding or rebound. No evidence of tenderness throughout. Back: No spinal tenderness. No costovertebral tenderness. Full range of motion. MS/ Extremity: Pulses equal, no cyanosis. Neurovascular intact. Full, normal range of motion. Neuro: Awake and alert, GCS 15, oriented to person, place, time, and situation. Cranial nerves II-XII grossly intact. Motor strength 5/5 in all extremities. Sensory grossly intact. Cerebellar exam normal. Normal gait. Vital Signs: 11/22 21:01 BP 187 / 110; Pulse 73; Resp 20; Temp 98.5(O); Pulse Ox 97% on R/A; Weight 86.18 kg fc (R); Height 4 ft. 11 in. (149.86 cm) (R); Pain 10/10; 22:09 BP 182 / 59; Pulse 71; Resp 17; Pulse Ox 98% on R/A; kr2 22:55 BP 182 / 59; Pulse 86; Resp 17; Pulse Ox 99% on R/A; kr2 11/23 00:42 BP 167 / 70; Pulse 84; Resp 17; Pulse Ox 99% on R/A; kr2 11/22 21:01 Body Mass Index 38.37 (86.18 kg, 149.86 cm) MDM: 11/22 21:10 Patient medically screened. [facility] 11/23 00:32 Data reviewed: vital signs, nurses notes. Counseling: I had a detailed discussion with [facility] the patient and/or guardian regarding: the historical points, exam findings, and any diagnostic results supporting the discharge/admit diagnosis. 11/22 21:11 Order name: Amylase, Serum; Complete Time: 22:[address] [facility] 11/22 22:12 Interpretation: Within normal limits: MARINO [address]. [facility] 11/22 21:11 Order name: Basic Metabolic Panel; Complete Time: 22:[address] [facility] 11/22 22:12 Interpretation: Normal except: CL 108; BUN 23; GFR 71. [facility] 11/22 21:11 Order name: CBC with Diff; Complete Time: 22:[address] [facility] 11/22 22:12 Interpretation: Normal except: WBC 13.3; MCV 79.8; MCH 26.1; PLT 420. [facility] 11/22 21:11 Order name: Creatinine for Radiology; Complete Time: 22:[address] [facility] 11/22 21:11 Order name: Hepatic Function; Complete Time: 22:[address] [facility] 11/22 22:12 Interpretation: Normal except: GLOB 3.9; A/G 1.0. [facility] 11/22 21:11 Order name: Lipase; Complete Time: 22:[address] [facility] 11/22 21:11 Order name: Urine Microscopic Only; Complete Time: 22:[address] [facility] 11/22 21:11 Order name: IV Saline Lock; Complete Time: 22:[address] [facility] 11/22 21:11 Order name: Labs collected and sent; Complete Time: 22:[address] [facility] 11/22 21:11 Order name: Urine Dipstick-Ancillary (obtain specimen); Complete Time: 22:[address] [facility] 11/22 21:52 Order name: Urine Dipstick--Ancillary (enter results); Complete Time: 22:12 [facility] 11/22 22:12 Order name: CT Abd/Pelvis - W/Contrast [facility] Administered Medications: 00:36 Drug: Flagyl 500 mg Route: PO; kr2 00:37 Follow up: Response: Medication administered at discharge. kr2 00:37 Drug: LevaQUIN 500 mg Route: PO; kr2 00:37 Follow up: Response: Medication administered at discharge. kr2 Disposition: 11/23/17 00:29 Discharged to Home. Impression: Diverticular disease of intestine, part unspecified, without perforation or abscess. - Condition is Stable. - Discharge Instructions: Diverticulitis, [id number]. - Prescriptions for Flagyl 500 mg Oral Tablet - take 1 tablet by ORAL route every 6 hours for 10 days; 40 tablet. Levaquin 500 mg Oral Tablet - take 1 tablet by ORAL route once daily for 10 days; 10 tablet. - Medication Reconciliation Form, Thank You Letter, Antibiotic Education, Prescription Opioid Use form. - Follow up: Private Physician; When: As needed; Reason: Recheck today's complaints, Re-evaluation by your physician. - Problem is an ongoing problem. - Symptoms are unchanged. Signatures: Dispatcher [employer] EDEdel Ellison RN RN Monse Michel RN RN kr2 David Briggs MD MD tw4 Corrections: (The following items were deleted from the chart) 00:43 00:29 11/23/2017 00:29 Discharged to Home. Impression: Diverticular disease of kr2 intestine, part unspecified, without perforation or abscess. Condition is Stable. Forms are Medication Reconciliation Form, Thank You Letter, Antibiotic Education, Prescription Opioid Use. Follow up: Private Physician; When: As needed; Reason: Recheck today's complaints, Re-evaluation by your physician. Problem is an ongoing problem. Symptoms are unchanged. tw4
[2017-11-23] MEDS ORDERED: levoFLOXacin 500 MG TAB ONE (00:35)
[2017-11-23] MEDS ORDERED: metroNIDAZOLE 500 MG TABLET ONE (00:35)
[2017-11-23 01:04] VITALS: TEMP 98.5
[2017-11-23 01:07] VITALS: O2SAT 99
[2017-11-23 01:08] VITALS: BP 167/70
--- NOTE | 2017-11-23 07:06 | RAD REPORT ---
EXAM DESCRIPTION: CT - Abdomen Pelvis W Contrast - 11/23/2017 3:20 am CLINICAL HISTORY: Abdominal pain, abdominal cramping, nausea and vomiting, history of hysterectomy, cholecystectomy and bladder suspension A preliminary written report was provided at the time of the study, and the report was reviewed prio r to final dictation. COMPARISON: CT study November 04 TECHNIQUE: Biphasic, helical CT imaging of the abdomen and pelvis was performed following 100 ml non -ionic IV contrast. Oral contrast was given. All CT scans are performed using dose optimization technique as appropriate and may include automated exposure control or mA/KV adjustment according to patient size. FINDINGS: No suspicious findings in the lung bases. The liver, spleen, and pancreas show no suspicious findings. Cholecystectomy clips are present. No ab normal biliary tree dilatation. Symmetric renal function is seen with no hydronephrosis or suspicious renal mass. No adrenal abnormal ity. Contracted urinary bladder shows no suspicious findings assessment is limited. Uterus is absent. Ovaries are absent or atrophic. No suspicious adnexal mass. No gastric dilatation or wall thickening. No small bowel abnormality. Appendix is not clearly defined . No appendicitis findings. From cecum through mid descending colon there is no acute finding. There is minimal diverticulosis in the proximal descending colon. At the descending sigmoid junction circum ferential wall thickening is present that extends to the sigmoid. There is mild edema in the adjacent fatty tissues. Patient has moderate diverticulosis. November 04 study showed diverticulitis findings in the distal descending colon. Findings in this region have improved slightly. The sigmoid involvement is mild but new from November 04. There is no abscess, free air or complicating finding. No abnormal lymp hadenopathy in this region. No free air, free fluid or pneumatosis. No other area of inflammatory stranding. No mass or bulky l ymphadenopathy. Small fat filled inguinal hernia. No suspicious bony findings. IMPRESSION: Mild diverticulitis findings of the sigmoid and distal descending colon. No abscess, per foration or other complicating factor. Sigmoid diverticulitis is mild but new from November 04. The involved portion of descending colon shows l ess diverticulitis compared to November 04. Follow-up colonoscopy is recommended after medical management. Colon carcinoma is not excluded but fe lt to be lesser in consideration. No secondary findings to elevate likelihood of carcinoma.
== END 2017-11-23 00:43 | disposition home or self-care (01) ==
LOC: ER 20:47
DX: K57.90 Diverticulosis of intestine, part unspecified, without perforation or abscess without bleeding (principal); I10 Essential (primary) hypertension; E03.9 Hypothyroidism, unspecified; E78.5 Hyperlipidemia, unspecified; F32.9 Major depressive disorder, single episode, unspecified; Z95.818 Presence of other cardiac implants and grafts
CPT/HCPCS: 36415; 74177; 80048; 80076; 82150; 83690; 85025; Q9967; 81003; 81015; 99284

== ENCOUNTER 2019-01-27 10:59 | Emergency (ER) | payer OTHER ==
--- OUTSIDE RECORDS SUMMARY | 2019-01-27 11:02 | XMS REPORT | Clinical Summary ---
:1950 Author Organization [facility] Address [address] [place] [address] Care Team Providers Name Role Phone Harry Panchal MD Primary Care Provider Allergies Active Allergy Reactions Severity Noted Date Comments Ciprofloxacin Nausea And Vomiting 12/26/2017 Codeine Itching, Nausea Only Medium 01/09/2018 Levofloxacin Nausea And Vomiting 12/26/2017 Medications Medication Sig Dispensed Refills Start Date End Date Status rosuvastatin (CRESTOR) Take 10 mg by 0 Active 20 MG tablet mouth nightly . irbesartan (AVAPRO) 300 Take 300 mg by 0 Active MG tablet mouth daily . clopidogrel (PLAVIX) 75 Take 75 mg by 0 Active mg tablet mouth daily. levothyroxine Take 100 mcg by 0 Active (SYNTHROID, LEVOTHROID) mouth Every 100 MCG tablet morning on an empty stomach. venlafaxine Take 150 mg by 0 Active (EFFEXOR-XR) 150 MG 24 mouth nightly . hr capsule metoprolol (LOPRESSOR) Take 50 mg by 0 Active 50 MG tablet mouth 2 (two) times daily. amLODIPine (NORVASC) 10 Take 10 mg by 0 Active MG tablet mouth nightly . hydrALAZINE Take 50 mg by 0 Active (APRESOLINE) 50 MG mouth 3 (three) tablet times daily. aspirin 81 MG EC tablet Take 81 mg by 0 Active mouth daily. Active Problems Problem Noted Date Diverticulitis of large intestine without bleeding 01/09/2018 Diverticulitis large intestine 01/09/2018 Social History Tobacco Use Types Packs/Day Years Used Date Former Smoker Smokeless Tobacco: Never Used Alcohol Use Drinks/Week oz/Week Comments No Sex Assigned at Date Recorded Not on file Job Start Date Occupation Industry Not on file Not on file Not on file Travel History Travel Start Travel End No recent travel history available. Last Filed Vital Signs Not on file Plan of Treatment Not on file Results Not on fileafter 01/26/2018 Insurance Payer Benefit Plan / Group Subscriber ID Type Phone Address CARE IMPROVEMENT MEDICARE MGD CARE IMPROVEMENT PLUS xxxxxxxxx CARE Advance Directives For more information, please contact:[address] [phone] Code Status Date Activated Date Inactivated Comments Full Code 01/09/2018 8:52 PM 01/11/2018 8:05 PM This code status was determined by: Patient
--- OUTSIDE RECORDS SUMMARY | 2019-01-27 11:02 | XMS REPORT | Clinical Summary ---
:1950 Author Organization [facility] Address [address] [place] [address] Care Team Providers Name Role Phone PanchalHarry murillo DO Primary Care Provider Allergies Active Allergy Reactions Severity Noted Date Comments Codeine 11/15/2017 Medications Medication Sig Dispensed Refills Start Date End Date Status ferrous sulfate TAKE 1 TABLET 60 tablet 0 03/20/2018 Active 325 (65 FE) MG BY MOUTH ONCE EC tablet DAILY WITH BREAKFAST ferrous sulfate Take 1 tablet 60 tablet 0 01/26/2018 Discontinued 325 (65 FE) MG (325 mg total) 8 (Reorder) EC tablet by mouth daily with breakfast. Active Problems Problem Noted Date Anemia 02/17/2018 Encounters Date Type Specialty Care Team Description 04/25/2018 Office Visit General Surgery Alagugurusamy, Abdominal pain, generalized (Primary Dx); Nila Dumas, Diverticulitis of large intestine without perforation or abscess without bleeding CUSTOMER SERVICE ASSISTANT-C Cornelio Ortiz MD 03/30/2018 Office Visit General Surgery Cornelio Ortiz Diverticulitis (Primary MD Buzz Dx) 03/19/2018 Refill General Surgery Nila Sewell NP-C 03/01/2018 Telephone General Surgery Lam Luis MA 02/23/2018 Orders Only General Surgery Alagugurusamy, Unsteady gait ( Primary Nila Dumas Dx) CUSTOMER SERVICE ASSISTANT-C 02/22/2018 Orders Only General Surgery Alagugurusamy, Anemia, unspecified type (Primary Dx); Nila Dumas Diverticulitis CUSTOMER SERVICE ASSISTANT-C 02/21/2018 Telephone General Surgery Isela Santiago MA 02/20/2018 Telephone Oncology Fernando Choudhury MD 02/19/2018 Documentation General Surgery Oralia Parr DO 02/17/2018 Lab Lab Alagugurusamy, Anemia, unspecified type Nila Dumas, CUSTOMER SERVICE ASSISTANT-C 02/17/2018 Office Visit General Surgery Alagugurusamy, Anemia, unspecified type (Primary Dx); Nila Dumas, Diverticulitis of large intestine without perforation or abscess without bleeding CUSTOMER SERVICE ASSISTANT-C 02/17/2018 Orders Only General Surgery Alagugurusamy Nila Dumas, CUSTOMER SERVICE ASSISTANT-C 02/07/2018 Telephone General Surgery Lam Luis MA 02/04/2018 Documentation General Surgery Oralia Parr, DO 01/31/2018 Orders Only General Surgery Alagugurusamy, Anemia, unspecified type Nila Dumas, (Primary Dx) CUSTOMER SERVICE ASSISTANT-C 01/30/2018 Lab Lab Alagugurusamy, Anemia, unspecified type Nila Mccurdyett, CUSTOMER SERVICE ASSISTANT-C 01/30/2018 Office Visit General Surgery Alagugurusamy, Anemia, unspecified type (Primary Dx); Nila Dumas, Diverticulitis of intestine without perforation or abscess without bleeding, unspecified part of intestinal tract CUSTOMER SERVICE ASSISTANT-C 01/30/2018 Orders Only General Surgery Alagugurusamy, Anemia, unspecified type Nila Mccurdyett, (Primary Dx) CUSTOMER SERVICE ASSISTANT-C 01/26/2018 Office Visit General Surgery Cornelio Ortiz Anemia, unspecified type (Primary Dx); MD Buzz Diverticulitis of large intestine without perforation or abscess without bleeding Melodie Nila Alesia, CUSTOMER SERVICE ASSISTANT-C 01/26/2018 Orders Only General Surgery Cornelio Ortiz MD after 01/26/2018 Family History Medical History Relation Name Comments [...] travel history available. Last Filed Vital Signs Vital Sign Reading Time Taken Comments Blood Pressure 165/62 04/25/2018 11:38 AM COATINGS INSPECTOR Pulse 62 04/25/2018 11:38 AM COATINGS INSPECTOR Temperature 36.3 C (97.4 F) 04/25/2018 11:38 AM COATINGS INSPECTOR Respiratory Rate - - Oxygen Saturation - - Inhaled Oxygen Concentration - - Weight - - Height - - Body Mass Index - - Plan of Treatment Health Maintenance Due Date Last Done Comments BREAST CANCER SCREENING 1998 COLONOSCOPY SCREENING 1998 SHINGLES VACCINES (#1) 1998 65+ PNEUMOCOCCAL VACCINE (1 of 2 - PCV13) 2013 INFLUENZA VACCINE 12/21/2018 Procedures Procedure Name Priority Date/Time Associated Comments Diagnosis CBC WITH PLATELET AND Routine 02/17/2018 12:00 Results for this DIFFERENTIAL AM CDT procedure are in the results section. after 01/26/2018 Results CBC with platelet and differential (02/17/2018 12:00 AM CDT) WBC 12.0 (H) 3.4 - 10.8 [facility] x10E3/uL RBC 3.51 (L) 3.77 - 5.28 [facility] x10E6/uL HGB 8.6 (L) 11.1 - 15.9 [facility] g/dL HCT 28.3 (L) 34.0 - 46.6 % [facility] MCV 81 79 - 97 fL [facility] MCH 24.5 (L) 26.6 - 33.0 [facility] pg MCHC 30.4 (L) 31.5 - 35.7 [facility] g/dL RDW 16.0 (H) 12.3 - 15.4 % [facility] Platelet count 1,080 (>) 150 - 379 [facility] Comment: x10E3/uL Platelet Count Repeated Platelet count verified by examination of peripheral blood smear. Verified by repeat analysis Neutrophils 69 Not Estab. % [facility] Lymphocytes 19 Not Estab. % [facility] Monocytes 8 Not Estab. % [facility] Eosinophils 3 Not Estab. % [facility] Basophils 0 Not Estab. % [facility] Neutrophils, absolute 8.3 (H) 1.4 - 7.0 [facility] x10E3/uL Lymphocytes, absolute 2.3 0.7 - 3.1 [facility] x10E3/uL Monocytes, absolute 1.0 (H) 0.1 - 0.9 [facility] x10E3/uL Eosinophils, absolute 0.3 0.0 - 0.4 [facility] x10E3/uL Basophils, absolute 0.0 0.0 - 0.2 [facility] x10E3/uL Immature granulocytes 1 Not Estab. % [facility] Immature grans (abs) 0.0 0.0 - 0.1 [facility] x10E3/uL Hematology comments: Note:Comment: [facility] Verified by microscopic examination. Specimen Narrative Performed At Performed at:01 - [facility] [place] [facility] [address], [id number] [employer] Operator: Jose Angel Yanez MD, Phone:[phone] Specimen Comment: Test(s) Platelets called to Dr Brewster on 02/18/2018 at 13:51 EST Specimen Comment: A duplicate report has been generated due to demographic updates. Performing Organization Address City/State/Zipcode Phone Number [facility] after 01/26/2018 Advance Directives For more information, please contact: [phone] Type Date Recorded Patient It Risk And Assurance Senior Manager Explanation Advance Directives, Living Will and Medical Power of Gear Shaper
--- OUTSIDE RECORDS SUMMARY | 2019-01-27 11:03 | XMS REPORT ---
:1950 Author Organization [facility] Address [address] [place] [address] [address] [place] [address] Care Team Providers Name Role Phone CORNELIO ORTIZ Unavailable Unavailable Problems This patient has no known problems. Allergies, Adverse Reactions, Alerts This patient has no known allergies or adverse reactions. Medications This patient has no known medications. Results Test Description Test Time Test Comments Text Results Atomic Results Result Comments TISSUE EXAM 2018-01-12 13:10:00 Surgical Pathology Report Case: [id number] Authorizing Provider: Cornelio Ortiz MD Collected: 01/09/2018 1704 Ordering Location: [facility] Received: 01/10/2018 0831 SERVICES Pathologist: Avery Leal MD Specimen: Large Intestine, Colon - Rectosigmoid, rectosigmoid and donuts A. RECTUM AND SIGMOID COLON, LAPAROSCOPIC LOW ANTERIOR RESECTION: COLON WITH DIVERTICULAR DISEASE.NEGATIVE FOR DYSPLASIA OR INVASIVE CARCINOMA.SURGICAL MARGINS VIABLE. Signing Pathologist Direct Phone Line: [phone] signed by Avery Leal MD on 01/12/2018 at 1:10 [id number] of colon Rectosigmoid colon and donutsReceived fresh labeled "large intestine, colon rectosigmoid", description "rectosigmoid and donuts" is a 28.0 cm in length x 4.0 cm in circumference segment of colon. The serosal surface is purple-pinzon to red, dusky, focally ragged and exhibits dense fibrous adhesions. The specimen is opened to reveal multiple deep mucosal outpouchings throughout this specimen. None of the outpouchings appear to perforate the serosa. The surrounding uninvolved mucosa is pink-pinzon, dusky and unremarkable. No discrete masses are identified. Also received in the specimen container are two pink-pinzon dusky rings of intestinal tissue measuring 2.0 cm and 2.5 cm in diameter. Sectioning reveals no discrete masses. Section code: A1-A2, parallel resection margins; A3-A9, customer assistance representative sections of mucosal outpouchings; A10, customer assistance representative sections of intestinal rings. DB/plPerformed. BASIC METABOLIC PANEL 2018-01-11 06:17:00 Test Item Value Reference Range Comments SODIUM (BEAKER) (test 138 meq/L 136-145 kuov=423) POTASSIUM (BEAKER) (test 3.8 meq/L 3.5-5.1 jncl=916) CHLORIDE (BEAKER) (test 111 meq/L 98-107 asnm=068) CO2 (BEAKER) (test eytv=565) 18 meq/L 22-29 BLOOD UREA NITROGEN (BEAKER) 13 mg/dL 7-21 (test bsgd=464) CREATININE (BEAKER) (test 0.67 mg/dL 0.57-1.25 jqaj=884) GLUCOSE RANDOM (BEAKER) 88 mg/dL 70-105 (test irzy=039) CALCIUM (BEAKER) (test 8.9 mg/dL 8.4-10.2 qjuq=430) EGFR (BEAKER) (test 87 mL/min/1.73 sq m ESTIMATED GFR IS NOT jdhw=1632) ACCURATE CREATININE CLEARANCE IN PREDICTING GLOMERULAR FILTRATION RATE. ESTIMATED GFR IS NOT APPLICABLE FOR DIALYSIS PATIENTS. CBC (HEMOGRAM ONLY)2018-01-11 05:46:00 Test Item Value Reference Range Comments WHITE BLOOD CELL COUNT (BEAKER) (test rwbz=423) 11.1 K/ L 3.5-10.5 RED BLOOD CELL COUNT (BEAKER) (test fdgm=810) 3.60 M/ L 3.93-5.22 HEMOGLOBIN (BEAKER) (test phpt=619) 9.5 GM/DL 11.2-15.7 HEMATOCRIT (BEAKER) (test vlpo=265) 31.1 % 34.1-44.9 MEAN CORPUSCULAR VOLUME (BEAKER) (test pcbw=672) 86.4 fL 79.4-94.8 MEAN CORPUSCULAR HEMOGLOBIN (BEAKER) (test 26.4 pg 25.6-32.2 birz=182) MEAN CORPUSCULAR HEMOGLOBIN CONC (BEAKER) (test 30.5 GM/DL 32.2-35.5 jetz=238) RED CELL DISTRIBUTION WIDTH (BEAKER) (test 15.5 % 11.7-14.4 lkkj=430) PLATELET COUNT (BEAKER) (test foaw=314) 289 K/CU MM 150-450 MEAN PLATELET VOLUME (BEAKER) (test ewqi=282) 10.8 fL 9.4-12.3 NUCLEATED RED BLOOD CELLS (BEAKER) (test 0 /100 WBC 0-0 atjs=869) BASIC METABOLIC [id number] 05:44:00 Test Item Value Reference Range Comments SODIUM (BEAKER) (test 139 meq/L 136-145 rdvy=944) POTASSIUM (BEAKER) (test 3.9 meq/L 3.5-5.1 dzsw=780) CHLORIDE (BEAKER) (test 113 meq/L 98-107 ekzt=691) CO2 (BEAKER) (test 18 meq/L 22-29 ynog=334) BLOOD UREA NITROGEN 19 mg/dL 7-21 (BEAKER) (test lgac=236) CREATININE (BEAKER) (test 0.76 mg/dL 0.57-1.25 ycrh=263) GLUCOSE RANDOM (BEAKER) 128 mg/dL 70-105 (test sgkx=042) CALCIUM (BEAKER) (test 8.0 mg/dL 8.4-10.2 eexn=280) EGFR (BEAKER) (test 75 mL/min/1.73 sq m ESTIMATED GFR IS NOT ifdx=9153) ACCURATE CREATININE CLEARANCE IN PREDICTING GLOMERULAR FILTRATION RATE. ESTIMATED GFR IS NOT APPLICABLE FOR DIALYSIS PATIENTS. CBC (HEMOGRAM ONLY)2018-01-10 05:33:00 Test Item Value Reference Range Comments WHITE BLOOD CELL COUNT (BEAKER) (test jjte=409) 12.5 K/ L 3.5-10.5 RED BLOOD CELL COUNT (BEAKER) (test pjad=784) 3.65 M/ L 3.93-5.22 HEMOGLOBIN (BEAKER) (test jzgg=329) 9.8 GM/DL 11.2-15.7 HEMATOCRIT (BEAKER) (test ncvn=875) 31.8 % 34.1-44.9 MEAN CORPUSCULAR VOLUME (BEAKER) (test ywdg=591) 87.1 fL 79.4-94.8 MEAN CORPUSCULAR HEMOGLOBIN (BEAKER) (test 26.8 pg 25.6-32.2 wkjr=550) MEAN CORPUSCULAR HEMOGLOBIN CONC (BEAKER) (test 30.8 GM/DL 32.2-35.5 roxy=769) RED CELL DISTRIBUTION WIDTH (BEAKER) (test 15.2 % 11.7-14.4 ylky=936) PLATELET COUNT (BEAKER) (test gxjt=399) 302 K/CU MM 150-450 MEAN PLATELET VOLUME (BEAKER) (test djfq=304) 11.4 fL 9.4-12.3 NUCLEATED RED BLOOD CELLS (BEAKER) (test 0 /100 WBC 0-0 jmvn=681) CBC WITH PLATELET COUNT + MANUAL [id number] 16:02:00 Test Item Value Reference Range Comments WHITE BLOOD CELL COUNT (BEAKER) (test qlao=493) 8.5 K/ L 3.5-10.5 RED BLOOD CELL COUNT (BEAKER) (test uetn=289) 4.49 M/ L 3.93-5.22 HEMOGLOBIN (BEAKER) (test hweb=746) 11.8 GM/DL 11.2-15.7 HEMATOCRIT (BEAKER) (test tttr=709) 37.1 % 34.1-44.9 MEAN CORPUSCULAR VOLUME (BEAKER) (test ssxq=617) 82.6 fL 79.4-94.8 MEAN CORPUSCULAR HEMOGLOBIN (BEAKER) (test 26.3 pg 25.6-32.2 aked=396) MEAN CORPUSCULAR HEMOGLOBIN CONC (BEAKER) (test 31.8 GM/DL 32.2-35.5 koet=328) RED CELL DISTRIBUTION WIDTH (BEAKER) (test 14.8 % 11.7-14.4 wsjb=140) PLATELET COUNT (BEAKER) (test kvab=859) 347 K/CU MM 150-450 MEAN PLATELET VOLUME (BEAKER) (test dfes=868) 10.7 fL 9.4-12.3 NUCLEATED RED BLOOD CELLS (BEAKER) (test 0 /100 WBC 0-0 alqr=839) NEUTROPHILS RELATIVE PERCENT (BEAKER) (test 71 % klcc=230) LYMPHOCYTES RELATIVE PERCENT (BEAKER) (test 18 % umil=842) MONOCYTES RELATIVE PERCENT (BEAKER) (test 9 % fnjy=608) EOSINOPHILS RELATIVE PERCENT (BEAKER) (test 1 % svwu=394) BASOPHILS RELATIVE PERCENT (BEAKER) (test 1 % xtvd=947) NEUTROPHILS ABSOLUTE COUNT (BEAKER) (test 5.98 K/ L 1.56-6.13 fbwg=916) LYMPHOCYTES ABSOLUTE COUNT (BEAKER) (test 1.52 K/ L 1.18-3.74 xije=125) MONOCYTES ABSOLUTE COUNT (BEAKER) (test 0.79 K/ L 0.24-0.36 tzbq=695) EOSINOPHILS ABSOLUTE COUNT (BEAKER) (test 0.09 K/ L 0.04-0.36 rajq=373) BASOPHILS ABSOLUTE COUNT (BEAKER) (test 0.05 K/ L 0.01-0.08 jdih=328) IMMATURE GRANULOCYTES-RELATIVE PERCENT (BEAKER) 1 % 0-1 (test pten=3897) [id number] 11:33:00 Test Item Value Reference Range Comments ALBUMIN (BEAKER) (test fmnk=5825) 4.2 g/dL 3.5-5.0 [id number] 13:50:00 Test Item Value Reference Range Comments SODIUM (BEAKER) (test qpsf=612) 138 meq/L 136-145 POTASSIUM (BEAKER) (test wuqa=475) 4.7 meq/L 3.5-5.1 CHLORIDE (BEAKER) (test lgyr=708) 109 meq/L 98-107 CO2 (BEAKER) (test doxf=185) 22 meq/L 22-29 BUN AND [id number] 13:50:00 Test Item Value Reference Range Comments BLOOD UREA NITROGEN 20 mg/dL 7-21 (BEAKER) (test asxk=914) CREATININE (BEAKER) (test 0.78 mg/dL 0.57-1.25 bjsr=483) EGFR (BEAKER) (test 73 mL/min/1.73 sq m ESTIMATED GFR IS NOT zrqo=7748) ACCURATE CREATININE CLEARANCE IN PREDICTING GLOMERULAR FILTRATION RATE. ESTIMATED GFR IS NOT APPLICABLE FOR DIALYSIS PATIENTS. [id number] 13:12:00 Test Item Value Reference Range Comments HEMOGLOBIN (BEAKER) (test mord=665) 11.8 GM/DL 11.2-15.7
[2019-01-27] MEDS ORDERED: HYDROCODONE/APAP 5/325 MG TAB ONE (12:20)
--- NOTE | 2019-01-27 12:41 | RAD REPORT ---
EXAM DESCRIPTION: Shoulder Right 2 View - 01/27/2019 12:21 pm CLINICAL HISTORY: Fall, right shoulder pain COMPARISON: November 2016 TECHNIQUE: Internal and external rotation views of the right shoulder were obtained. FINDINGS: There is no fracture or dislocation. AC joint degenerative changes are present showing a minimal progression from 2017. Acromial humeral joint space is narrowed slightly. No abnormal calcifi cations seen. IMPRESSION: No fracture or dislocation. AC joint degenerative changes are present progressive from 2 017.
[2019-01-27] MEDS ORDERED: MORPHINE 4 MG/ML SYR ONE (14:03)
[2019-01-27] MEDS ORDERED: ONDANSETRON 4 MG (ODT) TAB ONE (14:04)
--- NOTE | 2019-01-27 14:36 | EDPHYS ---
Physician Documentation [facility] Name: Kali Kumar Age: 68 yrs Sex: Female : 1950 Arrival Date: 01/27/2019 Time: 11:01 Bed 23 Private MD: Harry Panchal ED Physician Guillermo Crawford HPI: 01/27 12:06 This 68 yrs old Female presents to ER via Ambulatory with complaints of Fall rh1 Injury, Shoulder Injury. 12:06 Details of fall: The patient fell from an upright position, while standing, while rh1 walking, and struck a carpeted surface. Onset: The symptoms/episode began/occurred this morning. Associated injuries: The patient sustained anterior aspect of right shoulder, decreased range of motion, painful injury. Severity of symptoms: At their worst the symptoms were moderate, in the emergency department the symptoms are unchanged. The patient has not experienced similar symptoms in the past. The patient has not recently seen a physician. She tripped over a cord while walking this am, causing her to fall onto her left shoulder and knee. She grabbed out with her right arm to prevent the fall, and felt a pop and pulling at the right anterior shoulder, and has pain there, difficulty moving the arm. Denies any pain at the left shoulder, no LOC.. Historical: - Allergies: 11:12 Codeine; aa5 - PMHx: 11:12 Depression; Hyperlipidemia; Hypertension; Hypothyroidism; aa5 - PSHx: 11:12 Hysterectomy; ; Cholecystectomy; Bladder suspension; Heart stents; aa5 - Immunization history:: Flu vaccine is up to date. - Social history:: Smoking status: Patient/guardian denies using tobacco. - Ebola Screening: : No symptoms or risks identified at this time. ROS: 12:06 Constitutional: Negative for fever rh1 12:06 Neck: Negative for pain with movement, pain at rest. 12:06 Cardiovascular: Negative for chest pain, palpitations. 12:06 Respiratory: Negative for cough, shortness of breath, wheezing. 12:06 Abdomen/GI: Negative for abdominal pain, nausea and vomiting. 12:06 Back: Negative for pain at rest, pain with movement. 12:06 MS/extremity: Positive for decreased range of motion, pain, tenderness, Negative for contusion, paresthesias. 12:06 Neuro: Negative for numbness, tingling. 12:06 All other systems are negative. Exam: 12:06 Constitutional: This is a well developed, well nourished patient who is awake, alert, rh1 and in no acute distress. Head/Face: Normocephalic, atraumatic. 12:06 Neck: Trachea midline, and no cervical lymphadenopathy. Supple, full range of motion without nuchal rigidity. No Meningismus. Chest/axilla: Normal chest wall appearance and motion. Nontender with no deformity. No lesions are appreciated. Cardiovascular: Regular rate and rhythm with a normal S1 and S2. No gallops, murmurs, or rubs. No JVD. No pulse deficits. Respiratory: Lungs have equal breath sounds bilaterally, clear to auscultation. No rales, rhonchi or wheezes noted. No increased work of breathing. Abdomen/GI: Soft, non-tender, with normal bowel sounds. No distension. No guarding or rebound. No evidence of tenderness throughout. Back: No spinal tenderness. No costovertebral tenderness. Full range of motion. Skin: Warm, dry with normal turgor. Normal color with no rashes, no lesions, and no evidence of cellulitis. 12:06 Eyes: Pupils: no acute changes, normal size, normal reaction to light, Extraocular movements: intact throughout. 12:06 Musculoskeletal/extremity: Extremities: grossly normal except: noted in the anterior aspect of right shoulder: decreased ROM, pain, tenderness, There is no evidence of contusion, swelling, noted in the left arm and left leg: no evidence of decreased ROM, deformity, ecchymosis, pain, swelling, tenderness, ROM: full active range of motion, in the right hand, left hand, right foot, left foot, left arm, right leg and left leg, full passive range of motion, in the right hand, left hand, right foot, left foot, left arm, right leg and left leg, limited active range of motion, in the anterior aspect of right shoulder, limited passive range of motion, in the anterior aspect of right shoulder, limited active range of motion due to pain, in the anterior aspect of right shoulder, limited passive range of motion due to pain, in the anterior aspect of right shoulder, Pulses: noted to be 2+ in the right radial artery, right posterior tibial artery, right dorsalis pedis artery, left radial artery, left posterior tibial artery and left dorsalis pedis artery, Sensation intact. 12:06 Neuro: Orientation: is normal, to person, place \T\ time. Mentation: is normal, appropriate for stated age, lucid, able to follow commands, Motor: is normal, strength is normal, Sensation: is normal, no obvious gross deficits, numbness, is not appreciated, tingling, is not appreciated, Gait: is steady, at a normal pace, without difficulty. Vital Signs: 11:13 BP 167 / 70; Pulse 68; Resp 18 S; Temp 97.0(TE); Pulse Ox 99% on R/A; Weight 88.45 kg aa5 (R); Pain 6/10; 12:23 BP 166 / 57; Pulse 59; Resp 17 S; Pulse Ox 100% on R/A; ca1 12:58 BP 179 / 55; Pulse 58; Resp 16 S; Pulse Ox 100% on R/A; ca1 13:45 BP 197 / 58; Pulse 63; Resp 17 S; Pulse Ox 100% on R/A; ca1 14:00 BP 164 / 46 LA; Pulse 59; Resp 16; Pulse Ox 99% on R/A; tr5 MDM: 12:06 Patient medically screened. rh1 14:35 Data reviewed: vital signs, nurses notes, radiologic studies, plain films, and as a rh1 result, I will discharge patient. Data interpreted: Pulse oximetry: on room air is 99 %. Interpretation: normal. Counseling: I had a detailed discussion with the patient and/or guardian regarding: the historical points, exam findings, and any diagnostic results supporting the discharge/admit diagnosis, radiology results, the need for outpatient follow up, a family practitioner, a orthopedic surgeon, to return to the emergency department if symptoms worsen or persist or if there are any questions or concerns that arise at home. Special discussion: I discussed with the patient/guardian in detail that at this point there is no indication for admission to the hospital. It is understood, however, that if the symptoms persist or worsen the patient needs to return immediately for re-evaluation. 01/27 11:16 Order name: Shoulder Right (2 View) XRAY; Complete Time: 13:03 aa5 01/27 13:49 Order name: Arm-Sling; Complete Time: 14:39 rh1 Administered Medications: 12:22 Drug: HYDROcodone-acetaminophen 5 mg-325 mg 1 tabs {Note: RASS - 0.} Route: PO; ca1 13:11 Follow up: Response: No adverse reaction; Pain is decreased; RASS: Alert and Calm (0) ca1 14:08 Drug: morphine 4 mg {Note: RASS:0.} Route: IM; Site: left deltoid; tr5 14:08 Drug: Zofran 4 mg Route: PO; tr5 Disposition: 17:55 Co-signature as Attending Physician, Guillermo Crawford MD. rn Disposition: 01/27/19 14:35 Discharged to Home. Impression: Strain of other muscles, fascia and tendons at shoulder and upper arm level, right arm. - Condition is Stable. - Discharge Instructions: Elastic Bandage and RICE, Shoulder Pain, How to Use a Sling. - Prescriptions for Tramadol 50 mg Oral Tablet - take 1 tablet by ORAL route every 8 hours as needed; 12 tablet. - Medication Reconciliation Form, Thank You Letter, Antibiotic Education, Prescription Opioid Use form. - Follow up: Harry Panchal; When: 1 - 2 days; Reason: If symptoms return, Recheck today's complaints, Continuance of care. Follow up: Dr. Bobby Currie; When: 7 - 10 days; Reason: If symptoms return, Recheck today's complaints, Continuance of care. Follow up: Emergency Department; When: As needed; Reason: Worsening of condition, Continuance of care. - Problem is new. - Symptoms have improved. Signatures: Dispatcher [employer] EDGuillermo Webb MD MD rn Calderon, Audri, RN RN aa5 Harriet Cochran NP COASTAL AND ESTUARY SPECIALIST rh1 Radha Amaya RN RN ca1 Oleg Santiago RN RN tr5 Corrections: (The following items were deleted from the chart) 15:02 14:35 01/27/2019 14:35 Discharged to Home. Impression: Strain of other muscles, fascia tr5 and tendons at shoulder and upper arm level, right arm. Condition is Stable. Discharge Instructions: Elastic Bandage and RICE, Shoulder Pain, How to Use a Sling. Prescriptions for Tramadol 50 mg Oral Tablet - take 1 tablet by ORAL route every 8 hours as needed; 12 tablet. and Forms are Medication Reconciliation Form, Thank You Letter, Antibiotic Education, Prescription Opioid Use. Follow up: Harry Panchal; When: 1 - 2 days; Reason: If symptoms return, Recheck today's complaints, Continuance of care. Follow up: Dr. Bobby Currie; When: 7 - 10 days; Reason: If symptoms return, Recheck today's complaints, Continuance of care. Follow up: Emergency Department; When: As needed; Reason: Worsening of condition, Continuance of care. Problem is new. Symptoms have improved. rh1
--- NOTE | 2019-01-27 14:36 | ER ---
Nurse's Notes [facility] Name: Kali Kumar Age: 68 yrs Sex: Female : 1950 Arrival Date: 01/27/2019 Time: 11:01 Bed 23 Private MD: Harry Panchal Diagnosis: Strain of other muscles, fascia and tendons at shoulder and upper arm level, right arm Presentation: 01/27 11:11 Presenting complaint: Patient states: "I tripped on a cord and fell onto my left side aa5 but I reached out with my right arm to get a hold of something and hurt my right shoulder". Pt c/o right shoulder pain, denies LOC, denies head injury. Transition of care: patient was not received from another setting of care. Onset of symptoms was January 27, 2019. Risk Assessment: Do you want to hurt yourself or someone else? Patient reports no desire to harm self or others. Initial Sepsis Screen: Does the patient meet any 2 criteria? No. Patient's initial sepsis screen is negative. Does the patient have a suspected source of infection? No. Patient's initial sepsis screen is negative. Care prior to arrival: None. 11:11 Acuity: ISAIAS 4 aa5 11:11 Method Of Arrival: Ambulatory aa5 Historical: - Allergies: 11:12 Codeine; aa5 - PMHx: 11:12 Depression; Hyperlipidemia; Hypertension; Hypothyroidism; aa5 - PSHx: 11:12 Hysterectomy; ; Cholecystectomy; Bladder suspension; Heart stents; aa5 - Immunization history:: Flu vaccine is up to date. - Social history:: Smoking status: Patient/guardian denies using tobacco. - Ebola Screening: : No symptoms or risks identified at this time. Screenin:23 Abuse screen: Denies threats or abuse. Denies injuries from another. Nutritional ca1 screening: No deficits noted. Tuberculosis screening: No symptoms or risk factors identified. Fall Risk Fall in past 12 months (25 points). Assessment: 12:23 General: Appears in no apparent distress. comfortable, Behavior is calm, cooperative, ca1 appropriate for age. Pain: Complains of pain in right arm and anterior aspect of right shoulder Pain currently is 10 out of 10 on a pain scale. Neuro: Level of Consciousness is awake, alert, obeys commands, Oriented to person, place, time, situation. Cardiovascular: Heart tones S1 S2 present Capillary refill < 3 seconds Patient's skin is warm and dry. Respiratory: Airway is patent Respiratory effort is even, unlabored, Respiratory pattern is regular, symmetrical, Breath sounds are clear bilaterally. GI:. Derm: Skin is intact, is healthy with good turgor, Skin is pink, warm \\T\\ dry. Musculoskeletal: Circulation, motion, and sensation intact. Capillary refill < 3 seconds, Range of motion: limited in right shoulder. 13:45 Reassessment: Patient appears in no apparent distress at this time. Patient and/or ca1 family updated on plan of care and expected duration. Pain level reassessed. Patient is alert, oriented x 3, equal unlabored respirations, skin warm/dry/pink. 13:46 Reassessment: Pt c/o shoulder pain coming back at 9/10. Notified provider. ca1 Vital Signs: 11:13 BP 167 / 70; Pulse 68; Resp 18 S; Temp 97.0(TE); Pulse Ox 99% on R/A; Weight 88.45 kg aa5 (R); Pain 6/10; 12:23 BP 166 / 57; Pulse 59; Resp 17 S; Pulse Ox 100% on R/A; ca1 12:58 BP 179 / 55; Pulse 58; Resp 16 S; Pulse Ox 100% on R/A; ca1 13:45 BP 197 / 58; Pulse 63; Resp 17 S; Pulse Ox 100% on R/A; ca1 14:00 BP 164 / 46 LA; Pulse 59; Resp 16; Pulse Ox 99% on R/A; tr5 ED Course: 11:01 Patient arrived in ED. ag5 11:01 Harry Panchal DO is Private Physician. ag5 11:11 Arm band placed on. aa5 11:12 Triage completed. aa5 11:20 Harriet Cochran NP is PHCP. rh1 11:20 Guillermo Crawford MD is Attending Physician. rh1 12:07 Radha Amaya, BALJEET is Primary Nurse. ca1 12:18 Shoulder Right (2 View) XRAY In Process Unspecified. EDMS 12:19 ice pack given to patient and applied to right shoulder area. lt1 12:23 Patient has correct armband on for positive identification. Bed in low position. Call ca1 light in reach. Side rails up X2. Pulse ox on. NIBP on. Warm blanket given. Ice pack to injury. 12:23 No provider procedures requiring assistance completed. Patient did not have IV access ca1 during this emergency room visit. 14:35 Harry Panchal DO is Referral Physician. rh1 14:35 Bobby Currie MD is Referral Physician. rh1 14:38 Sling applied to right arm. lt1 Administered Medications: 12:22 Drug: HYDROcodone-acetaminophen 5 mg-325 mg 1 tabs {Note: RASS - 0.} Route: PO; ca1 13:11 Follow up: Response: No adverse reaction; Pain is decreased; RASS: Alert and Calm (0) ca1 14:08 Drug: morphine 4 mg {Note: RASS:0.} Route: IM; Site: left deltoid; tr5 14:08 Drug: Zofran 4 mg Route: PO; tr5 Outcome: 14:35 Discharge ordered by . rh1 15:01 Discharged to home via wheelchair. tr5 15:01 Condition: stable 15:01 Discharge instructions given to patient, Instructed on discharge instructions, follow up and referral plans. medication usage, Demonstrated understanding of instructions, follow-up care, medications, Prescriptions given X 1. 15:02 Patient left the ED. tr5 Signatures: Dispatcher [employer] EDMS Shaye Wilhelm RN RN aa5 Harriet Cochran NP BARREL INSPECTOR TIGHT rh1 Radha Amaya RN RN ca1 [place] Callie Downey lt1 Oleg Santiago RN RN tr5 Corrections: (The following items were deleted from the chart) 11:14 11:13 Pulse 68bpm; Resp 18bpm; Spontaneous; Pulse Ox 99% RA; Temp 97.0F Temporal; 88.45 aa5 kg Reported; Pain 10/10; aa5 11:15 11:13 Pulse 68bpm; Resp 18bpm; Spontaneous; Pulse Ox 99% RA; Temp 97.0F Temporal; 88.45 aa5 kg Reported; Pain 10/10; aa5 11:15 11:13 BP 167 / 70; Pulse 68bpm; Resp 18bpm; Spontaneous; Pulse Ox 99% RA; Temp 97.0F aa5 Temporal; 88.45 kg Reported; Pain 10/10; aa5
[2019-01-27 15:22] VITALS: TEMP 97
[2019-01-27 15:27] VITALS: BP 164/46; O2SAT 99
== END 2019-01-27 15:02 | disposition home or self-care (01) ==
LOC: ER 10:59
DX: S46.911A Strain of unspecified muscle, fascia and tendon at shoulder and upper arm level, right arm, initial encounter (principal); W01.0XXA Fall on same level from slipping, tripping and stumbling without subsequent striking against object, initial encounter; Y93.9 Activity, unspecified; Y92.9 Unspecified place or not applicable; Z88.6 Allergy status to analgesic agent; Z95.5 Presence of coronary angioplasty implant and graft
CPT/HCPCS: 96372; 99284

== ENCOUNTER 2019-01-28 07:02 | Emergency (ER) | payer OTHER ==
--- OUTSIDE RECORDS SUMMARY | 2019-01-28 07:04 | XMS REPORT | Clinical Summary ---
:1950 Author Organization [facility] Address [address] [place] [address] Care Team Providers Name Role Phone Harry [...] Not on file Results Not on fileafter 01/27/2018 Insurance Payer Benefit Plan / Group Subscriber ID Type Phone Address CARE IMPROVEMENT MEDICARE MGD CARE IMPROVEMENT PLUS xxxxxxxxx CARE Advance Directives For more information, please contact:[address] [phone] Code Status Date Activated Date Inactivated Comments Full Code 01/09/2018 8:52 PM 01/11/2018 8:05 PM This code status was determined by: Patient
--- OUTSIDE RECORDS SUMMARY | 2019-01-28 07:04 | XMS REPORT ---
:1950 [facility] Organization [facility] Address [address] [place] [address] [address]. [address] [place] [address] Care Team Providers Name Role Phone CORNELIO ORTIZ Unavailable Unavailable Problems This patient has no known problems. Allergies, Adverse Reactions, Alerts This patient has no known allergies or adverse reactions. Medications This patient has no known medications. Results Test Description Test Time Test Comments Text Results Atomic Results Result Comments TISSUE EXAM 2018-01-12 13:10:00 Surgical Pathology Report Case: [id number] Authorizing Provider: Cornelio Ortiz MD Collected: 01/09/2018 1704 Ordering Location: [facility] Received: 01/10/2018 0831 SERVICES Pathologist: Avery Leal MD Specimen: Large Intestine, Colon - Rectosigmoid, rectosigmoid and donuts A. RECTUM AND SIGMOID COLON, LAPAROSCOPIC LOW ANTERIOR RESECTION: COLON WITH DIVERTICULAR DISEASE.NEGATIVE FOR DYSPLASIA OR INVASIVE CARCINOMA.SURGICAL MARGINS VIABLE. Signing Pathologist Direct Phone Line: [phone] signed by Avery Leal MD on 01/12/2018 at 1:10 [id number] of colon Rectosigmoid colon and donutsReceived fresh [...] Section code: A1-A2, parallel resection margins; A3-A9, branch sales and service representative sections of mucosal outpouchings; A10, branch sales and service representative sections of intestinal rings. DB/plPerformed. BASIC METABOLIC PANEL 2018-01-11 06:17:00 Test Item Value Reference Range Comments SODIUM (BEAKER) (test 138 meq/L 136-145 ztii=510) POTASSIUM (BEAKER) (test 3.8 meq/L 3.5-5.1 fqiz=233) CHLORIDE (BEAKER) (test 111 meq/L 98-107 krzg=525) CO2 (BEAKER) (test heiz=770) 18 meq/L 22-29 BLOOD UREA NITROGEN (BEAKER) 13 mg/dL 7-21 (test fbae=773) CREATININE (BEAKER) (test 0.67 mg/dL 0.57-1.25 siwe=612) GLUCOSE RANDOM (BEAKER) 88 mg/dL 70-105 (test vxag=250) CALCIUM (BEAKER) (test 8.9 mg/dL 8.4-10.2 acxz=032) EGFR (BEAKER) (test 87 mL/min/1.73 sq m ESTIMATED GFR IS NOT xusj=9778) ACCURATE CREATININE CLEARANCE IN PREDICTING GLOMERULAR FILTRATION RATE. ESTIMATED GFR IS NOT APPLICABLE FOR DIALYSIS PATIENTS. CBC (HEMOGRAM ONLY)2018-01-11 05:46:00 Test Item Value Reference Range Comments WHITE BLOOD CELL COUNT (BEAKER) (test hnel=619) 11.1 K/ L 3.5-10.5 RED BLOOD CELL COUNT (BEAKER) (test eepi=116) 3.60 M/ L 3.93-5.22 HEMOGLOBIN (BEAKER) (test oujg=463) 9.5 GM/DL 11.2-15.7 HEMATOCRIT (BEAKER) (test vukz=506) 31.1 % 34.1-44.9 MEAN CORPUSCULAR VOLUME (BEAKER) (test wslf=678) 86.4 fL 79.4-94.8 MEAN CORPUSCULAR HEMOGLOBIN (BEAKER) (test 26.4 pg 25.6-32.2 airu=456) MEAN CORPUSCULAR HEMOGLOBIN CONC (BEAKER) (test 30.5 GM/DL 32.2-35.5 ntkx=955) RED CELL DISTRIBUTION WIDTH (BEAKER) (test 15.5 % 11.7-14.4 gsha=275) PLATELET COUNT (BEAKER) (test xnyt=640) 289 K/CU MM 150-450 MEAN PLATELET VOLUME (BEAKER) (test nkqx=660) 10.8 fL 9.4-12.3 NUCLEATED RED BLOOD CELLS (BEAKER) (test 0 /100 WBC 0-0 uafp=942) BASIC METABOLIC [id number] 05:44:00 Test Item Value Reference Range Comments SODIUM (BEAKER) (test 139 meq/L 136-145 dwtu=602) POTASSIUM (BEAKER) (test 3.9 meq/L 3.5-5.1 waei=050) CHLORIDE (BEAKER) (test 113 meq/L 98-107 ylsd=641) CO2 (BEAKER) (test 18 meq/L 22-29 lbjm=582) BLOOD UREA NITROGEN 19 mg/dL 7-21 (BEAKER) (test vbup=124) CREATININE (BEAKER) (test 0.76 mg/dL 0.57-1.25 kvcg=566) GLUCOSE RANDOM (BEAKER) 128 mg/dL 70-105 (test geqc=841) CALCIUM (BEAKER) (test 8.0 mg/dL 8.4-10.2 vluw=740) EGFR (BEAKER) (test 75 mL/min/1.73 sq m ESTIMATED GFR IS NOT pjce=2670) ACCURATE CREATININE CLEARANCE IN PREDICTING GLOMERULAR FILTRATION RATE. ESTIMATED GFR IS NOT APPLICABLE FOR DIALYSIS PATIENTS. CBC (HEMOGRAM ONLY)2018-01-10 05:33:00 Test Item Value Reference Range Comments WHITE BLOOD CELL COUNT (BEAKER) (test cjsi=184) 12.5 K/ L 3.5-10.5 RED BLOOD CELL COUNT (BEAKER) (test udpg=058) 3.65 M/ L 3.93-5.22 HEMOGLOBIN (BEAKER) (test sobm=567) 9.8 GM/DL 11.2-15.7 HEMATOCRIT (BEAKER) (test romv=688) 31.8 % 34.1-44.9 MEAN CORPUSCULAR VOLUME (BEAKER) (test xjeo=046) 87.1 fL 79.4-94.8 MEAN CORPUSCULAR HEMOGLOBIN (BEAKER) (test 26.8 pg 25.6-32.2 aqjk=744) MEAN CORPUSCULAR HEMOGLOBIN CONC (BEAKER) (test 30.8 GM/DL 32.2-35.5 mfyh=302) RED CELL DISTRIBUTION WIDTH (BEAKER) (test 15.2 % 11.7-14.4 fork=150) PLATELET COUNT (BEAKER) (test grxj=105) 302 K/CU MM 150-450 MEAN PLATELET VOLUME (BEAKER) (test lzze=358) 11.4 fL 9.4-12.3 NUCLEATED RED BLOOD CELLS (BEAKER) (test 0 /100 WBC 0-0 bqfb=886) CBC WITH PLATELET COUNT + MANUAL [id number] 16:02:00 Test Item Value Reference Range Comments WHITE BLOOD CELL COUNT (BEAKER) (test gtuq=022) 8.5 K/ L 3.5-10.5 RED BLOOD CELL COUNT (BEAKER) (test xnsm=685) 4.49 M/ L 3.93-5.22 HEMOGLOBIN (BEAKER) (test szun=374) 11.8 GM/DL 11.2-15.7 HEMATOCRIT (BEAKER) (test keft=679) 37.1 % 34.1-44.9 MEAN CORPUSCULAR VOLUME (BEAKER) (test ryoq=664) 82.6 fL 79.4-94.8 MEAN CORPUSCULAR HEMOGLOBIN (BEAKER) (test 26.3 pg 25.6-32.2 tcuy=252) MEAN CORPUSCULAR HEMOGLOBIN CONC (BEAKER) (test 31.8 GM/DL 32.2-35.5 otjp=100) RED CELL DISTRIBUTION WIDTH (BEAKER) (test 14.8 % 11.7-14.4 shdw=580) PLATELET COUNT (BEAKER) (test qaja=387) 347 K/CU MM 150-450 MEAN PLATELET VOLUME (BEAKER) (test oqnb=497) 10.7 fL 9.4-12.3 NUCLEATED RED BLOOD CELLS (BEAKER) (test 0 /100 WBC 0-0 biry=481) NEUTROPHILS RELATIVE PERCENT (BEAKER) (test 71 % cjpr=724) LYMPHOCYTES RELATIVE PERCENT (BEAKER) (test 18 % vqri=349) MONOCYTES RELATIVE PERCENT (BEAKER) (test 9 % uqgr=300) EOSINOPHILS RELATIVE PERCENT (BEAKER) (test 1 % tlgn=078) BASOPHILS RELATIVE PERCENT (BEAKER) (test 1 % mnmi=831) NEUTROPHILS ABSOLUTE COUNT (BEAKER) (test 5.98 K/ L 1.56-6.13 hxar=708) LYMPHOCYTES ABSOLUTE COUNT (BEAKER) (test 1.52 K/ L 1.18-3.74 ebjo=160) MONOCYTES ABSOLUTE COUNT (BEAKER) (test 0.79 K/ L 0.24-0.36 bmcs=740) EOSINOPHILS ABSOLUTE COUNT (BEAKER) (test 0.09 K/ L 0.04-0.36 otle=670) BASOPHILS ABSOLUTE COUNT (BEAKER) (test 0.05 K/ L 0.01-0.08 ulje=521) IMMATURE GRANULOCYTES-RELATIVE PERCENT (BEAKER) 1 % 0-1 (test biho=7523) [id number] 11:33:00 Test Item Value Reference Range Comments ALBUMIN (BEAKER) (test hfwp=0274) 4.2 g/dL 3.5-5.0 [id number] 13:50:00 Test Item Value Reference Range Comments SODIUM (BEAKER) (test wjgs=129) 138 meq/L 136-145 POTASSIUM (BEAKER) (test uepz=452) 4.7 meq/L 3.5-5.1 CHLORIDE (BEAKER) (test urvn=315) 109 meq/L 98-107 CO2 (BEAKER) (test ixwk=694) 22 meq/L 22-29 BUN AND [id number] 13:50:00 Test Item Value Reference Range Comments BLOOD UREA NITROGEN 20 mg/dL 7-21 (BEAKER) (test cbeh=448) CREATININE (BEAKER) (test 0.78 mg/dL 0.57-1.25 azsi=499) EGFR (BEAKER) (test 73 mL/min/1.73 sq m ESTIMATED GFR IS NOT jsma=9771) ACCURATE CREATININE CLEARANCE IN PREDICTING GLOMERULAR FILTRATION RATE. ESTIMATED GFR IS NOT APPLICABLE FOR DIALYSIS PATIENTS. [id number] 13:12:00 Test Item Value Reference Range Comments HEMOGLOBIN (BEAKER) (test kyzl=979) 11.8 GM/DL 11.2-15.7
--- OUTSIDE RECORDS SUMMARY | 2019-01-28 07:04 | XMS REPORT | Clinical Summary ---
:1950 Author Organization [facility] Address [address] [place] [address] Care Team Providers Name Role Phone Harry [...] intestine without perforation or abscess without bleeding SYNOPTIC METEOROLOGIST-C Cornelio Ortiz MD 03/30/2018 Office Visit General Surgery Cornelio Ortiz Diverticulitis (Primary MD Buzz Dx) 03/19/2018 Refill General Surgery Nila Sewell NP-C 03/01/2018 Telephone General Surgery Lam Luis MA 02/23/2018 Orders Only General Surgery Alagugurusamy, Unsteady gait ( Primary Nila Dumas Dx) SYNOPTIC METEOROLOGIST-C 02/22/2018 Orders Only General Surgery Alagugurusamy, Anemia, unspecified type (Primary Dx); Nila Dumas Diverticulitis SYNOPTIC METEOROLOGIST-C 02/21/2018 Telephone General Surgery Isela Santiago MA 02/20/2018 Telephone Oncology Fernando Choudhury MD 02/19/2018 Documentation General Surgery Oralia Parr DO 02/17/2018 Lab Lab Alagugurusamy, Anemia, unspecified type Nila Dumas, SYNOPTIC METEOROLOGIST-C 02/17/2018 Office Visit General Surgery Alagugurusamy, Anemia, unspecified type (Primary Dx); Nila Dumas, Diverticulitis of large intestine without perforation or abscess without bleeding SYNOPTIC METEOROLOGIST-C 02/17/2018 Orders Only General Surgery Alagugurusamy, Nila Dumas, SYNOPTIC METEOROLOGIST-C 02/07/2018 Telephone General Surgery Lam Luis MA 02/04/2018 Documentation General Surgery Keshav Oralia Brown, 01/31/2018 Orders Only General Surgery Alagugurusamy, Anemia, unspecified type Nila Dumas, (Primary Dx) SYNOPTIC METEOROLOGIST-C 01/30/2018 Lab Lab Alagugurusamy, Anemia, unspecified type Nila Dumas, SYNOPTIC METEOROLOGIST-C 01/30/2018 Office Visit General Surgery Alagugurusamy, Anemia, unspecified type (Primary Dx); Nila Dumas, Diverticulitis of intestine without perforation or abscess without bleeding, unspecified part of intestinal tract SYNOPTIC METEOROLOGIST-C 01/30/2018 Orders Only General Surgery Alagugurusamy, Anemia, unspecified type Nila Dumas, (Primary Dx) SYNOPTIC METEOROLOGIST-C after 01/27/2018 Family History Medical History Relation Name Comments [...] Comments Blood Pressure 165/62 04/25/2018 11:38 AM BOOKING SUPERVISOR Pulse 62 04/25/2018 11:38 AM BOOKING SUPERVISOR Temperature 36.3 C (97.4 F) 04/25/2018 11:38 AM BOOKING SUPERVISOR Respiratory Rate - - Oxygen Saturation - [...] procedure are in the results section. after 01/27/2018 Results CBC with platelet and differential (02/17/2018 [...] Specimen Narrative Performed At Performed at:01 - [id number] Cigarette Machine Filler: Jose Angel Yanez MD, Phone:[phone] Specimen Comment: Test(s) Platelets called to Dr Brewster on 02/18/2018 at 13:51 EST Specimen Comment: A duplicate report has been generated due to demographic updates. Performing Organization Address City/State/Zipcode Phone Number [email or web address] after 01/27/2018 Advance Directives For more information, please contact: [phone] Type Date Recorded Patient Gambling Counsellor Explanation Advance Directives, Living Will and Medical Power of Client Support Consultant
[2019-01-28] MEDS ORDERED: MEPERIDINE HCL 25 MG/0.5 ML ONE (07:23)
[2019-01-28] MEDS ORDERED: KETOROLAC 30 MG/ML INJ ONE (07:24)
--- NOTE | 2019-01-28 07:24 | ER ---
Nurse's Notes [facility] Name: Kali Kumar Age: 68 yrs Sex: Female : 1950 Arrival Date: 01/28/2019 Time: 07:04 Bed 15 Private MD: Diagnosis: Injury of muscle, fascia and tendon at shoulder and upper arm level Presentation: 01/28 07:05 Presenting complaint: Patient states: Fell yesterday and came here for x-ray. Diagnosed rb1 with a pull muscle. She was sent home with Tramadol and says the pain medication is not working. Transition of care: patient was not received from another setting of care. Onset of symptoms was January 27, 2019. Risk Assessment: Do you want to hurt yourself or someone else? Patient reports no desire to harm self or others. Initial Sepsis Screen: Does the patient meet any 2 criteria? No. Patient's initial sepsis screen is negative. Does the patient have a suspected source of infection? No. Patient's initial sepsis screen is negative. Care prior to arrival: Medication(s) given: Motrin, Tramadol. 07:05 Method Of Arrival: Ambulatory rb1 07:05 Acuity: ISAIAS 3 rb1 Triage Assessment: 07:05 General: Appears uncomfortable, Behavior is calm, cooperative, Denies fever. Pain: rb1 Complains of pain in right shoulder Pain currently is 10 out of 10 on a pain scale. Pain began 1 day ago. Neuro: Level of Consciousness is awake, alert, obeys commands, Oriented to person, place, time, situation. Cardiovascular: Capillary refill < 3 seconds is brisk in bilateral fingers. Respiratory: Airway is patent Respiratory effort is even, unlabored, Respiratory pattern is regular, symmetrical. GI: No signs and/or symptoms were reported involving the gastrointestinal system. : No signs and/or symptoms were reported regarding the genitourinary system. Derm: Skin is pink, warm \T\ dry. Musculoskeletal: Range of motion: limited in right shoulder. Historical: - Allergies: 07:05 Codeine; rb1 - Home Meds: 07:05 aspirin 81 mg Oral chew 1 tab once daily [Active]; Crestor 40 mg Oral tab nightly rb1 [Active]; Diovan 320 mg Oral tab 1 tab once daily [Active]; Effexor Oral 150 mg nightly [Active]; hydralazine 50 mg Oral tab 1 tab three times a day [Active]; levothyroxine 100 mcg tab 1 tab once daily [Active]; metoprolol tartrate 50 mg Oral tab 1 tab 2 times per day [Active]; Norvasc 10 mg Oral tab 1 tab once daily [Active]; Plavix 75 mg Oral tab 1 tab once daily [Active]; - PMHx: 07:05 Depression; Hyperlipidemia; Hypertension; Hypothyroidism; rb1 - PSHx: 07:05 Hysterectomy; ; Cholecystectomy; Bladder suspension; Heart stents; rb1 - Immunization history:: Adult Immunizations up to date. - Ebola Screening: : Patient negative for fever greater than or equal to 101.5 degrees Fahrenheit, and additional compatible Ebola Virus Disease symptoms. - Family history:: not pertinent. - Social history:: Smoking status: Patient/guardian denies using tobacco. - Hospitalizations: : No recent hospitalization is reported. Screenin:05 Abuse screen: Denies threats or abuse. Nutritional screening: No deficits noted. rb1 Tuberculosis screening: No symptoms or risk factors identified. Fall Risk Fall in past 12 months (25 points). No secondary diagnosis (0 pts). No IV (0 pts). Ambulatory Aid- None/Bed Rest/Nurse Assist (0 pts). Gait- Normal/Bed Rest/Wheelchair (0 pts) Mental Status- Oriented to own ability (0 pts). Total Schulz Fall Scale indicates Low Risk Score (25-44 pts). Fall prevention measures have been instituted. Side Rails Up X 2 Placed close to Nursing Station 1:1 attendant Assigned to Pt. Frequent Obs/Assesments occuring Family Present and informed to notify staff if they need to leave bedside As available Patient and Family Educated on Fall Prevention Program and strategies. Assessment: 07:05 General: See triage assessment. rb1 07:25 Reassessment: Discharge pending due to shot time. rb1 Vital Signs: 07:05 BP 149 / 61; Pulse 62; Resp 17; Temp 98.2(O); Pulse Ox 100% on R/A; Weight 83.91 kg rb1 (R); Height 4 ft. 11 in. (149.86 cm) (R); Pain 10/10; 07:40 Pain 8/10; rb1 07:05 Body Mass Index 37.37 (83.91 kg, 149.86 cm) rb1 ED Course: 07:04 Patient arrived in ED. ds1 07:05 Guillermo Crawfodr MD is Attending Physician. rn 07:05 Arm band placed on right wrist. rb1 07:05 Bed in low position. Call light in reach. Side rails up X 1. Pulse ox on. NIBP on. rb1 07:12 Rajni Ward, RN is Primary Nurse. rb1 07:15 Triage completed. rb1 07:42 No provider procedures requiring assistance completed. Patient did not have IV access rb1 during this emergency room visit. Administered Medications: 07:25 Drug: Demerol 25 mg Route: IM; Site: left deltoid; rb1 07:40 Follow up: Response: No adverse reaction; Pain is decreased rb1 07:25 Drug: TORadol - Ketorolac 15 mg Route: IM; Site: left gluteus; rb1 07:40 Follow up: Response: No adverse reaction; Pain is decreased rb1 Outcome: 07:23 Discharge ordered by MD. rn 07:42 Patient left the ED. rb1 07:42 Discharged to home ambulatory, with family. rb1 07:42 Condition: stable 07:42 Discharge instructions given to patient, Instructed on discharge instructions, follow up and referral plans. medication usage, Demonstrated understanding of instructions, follow-up care, medications, Prescriptions given X 1. Signatures: Olga Lidia Rojas ds1 Guillermo Crawford MD MD rn Barber, Rebecca, BALJEET RN rb1
--- NOTE | 2019-01-28 07:25 | EDPHYS ---
Physician Documentation [facility] Name: Kali Kumar Age: 68 yrs Sex: Female : 1950 Arrival Date: 01/28/2019 Time: 07:04 Bed 15 Private MD: ED Physician Guillermo Crawford HPI: 01/28 07:19 This 68 yrs old Female presents to ER via Ambulatory with complaints of rn Shoulder Pain. 07:19 The patient or guardian complains of decreased range of motion, an injury, pain. right rn shoulder. 07:19 Onset: The symptoms/episode began/occurred yesterday. Modifying factors: the symptoms rn are alleviated by nothing. The symptoms are aggravated by movement, rotation of arm. Severity of symptoms: At their worst the symptoms were moderate, in the emergency department the symptoms are unchanged. The patient has not experienced similar symptoms in the past. Reports fall yesterday, tripped over power cord, seen here, negative xrays, sent home with tramadol due to codeine allergy, states not helping. Also taking ibuprofen. No new injury. . Historical: - Allergies: 07:05 Codeine; rb1 - Home Meds: 07:05 aspirin 81 mg Oral chew 1 tab once daily [Active]; Crestor 40 mg Oral tab nightly rb1 [Active]; Diovan 320 mg Oral tab 1 tab once daily [Active]; Effexor Oral 150 mg nightly [Active]; hydralazine 50 mg Oral tab 1 tab three times a day [Active]; levothyroxine 100 mcg tab 1 tab once daily [Active]; metoprolol tartrate 50 mg Oral tab 1 tab 2 times per day [Active]; Norvasc 10 mg Oral tab 1 tab once daily [Active]; Plavix 75 mg Oral tab 1 tab once daily [Active]; - PMHx: 07:05 Depression; Hyperlipidemia; Hypertension; Hypothyroidism; rb1 - PSHx: 07:05 Hysterectomy; ; Cholecystectomy; Bladder suspension; Heart stents; rb1 - Immunization history:: Adult Immunizations up to date. - Ebola Screening: : Patient negative for fever greater than or equal to 101.5 degrees Fahrenheit, and additional compatible Ebola Virus Disease symptoms. - Family history:: not pertinent. - Social history:: Smoking status: Patient/guardian denies using tobacco. - Hospitalizations: : No recent hospitalization is reported. ROS: 07:19 Constitutional: Negative for fever, chills, and weight loss, Eyes: Negative for injury, rn pain, redness, and discharge, Neck: Negative for injury, pain, and swelling, Cardiovascular: Negative for chest pain, palpitations, and edema, Respiratory: Negative for shortness of breath, cough, wheezing, and pleuritic chest pain, Abdomen/GI: Negative for abdominal pain, nausea, vomiting, diarrhea, and constipation, MS/Extremity: Negative for deformity Neuro: Negative for headache, weakness, numbness, tingling, and seizure. Exam: 07:19 Constitutional: This is a well developed, well nourished patient who is awake, alert, rn appears uncomfortable, in sling. Neck: Trachea midline, Supple, full range of motion without nuchal rigidity, or vertebral point tenderness. MS/ Extremity: Pulses equal, no cyanosis. Neurovascular intact. Painful ROM right shoulder with tenderness over distal clavicle and shoulder joint. Neuro: Awake and alert, GCS 15, oriented to person, place, time, and situation. Cranial nerves II-XII grossly intact. Motor strength 5/5 in all extremities. Sensory grossly intact. Cerebellar exam normal. Normal gait. Vital Signs: 07:05 BP 149 / 61; Pulse 62; Resp 17; Temp 98.2(O); Pulse Ox 100% on R/A; Weight 83.91 kg rb1 (R); Height 4 ft. 11 in. (149.86 cm) (R); Pain 10/10; 07:40 Pain 8/10; rb1 07:05 Body Mass Index 37.37 (83.91 kg, 149.86 cm) rb1 MDM: 07:05 Patient medically screened. rn 07:19 Differential diagnosis: strain, sprain, shoulder separation. Data reviewed: vital rn signs, nurses notes, old medical records, and as a result, I will discharge patient. Counseling: I had a detailed discussion with the patient and/or guardian regarding: the historical points, exam findings, and any diagnostic results supporting the discharge/admit diagnosis, the need for outpatient follow up, to return to the emergency department if symptoms worsen or persist or if there are any questions or concerns that arise at home. Special discussion: I discussed with the patient/guardian in detail that at this point there is no indication for admission to the hospital. It is understood, however, that if the symptoms persist or worsen the patient needs to return immediately for re-evaluation. Administered Medications: 07:25 Drug: Demerol 25 mg Route: IM; Site: left deltoid; rb1 07:40 Follow up: Response: No adverse reaction; Pain is decreased rb1 07:25 Drug: TORadol - Ketorolac 15 mg Route: IM; Site: left gluteus; rb1 07:40 Follow up: Response: No adverse reaction; Pain is decreased rb1 Disposition: 01/28/19 07:23 Discharged to Home. Impression: Injury of muscle, fascia and tendon at shoulder and upper arm level. - Condition is Stable. - Discharge Instructions: Shoulder Pain. - Prescriptions for Cyclobenzaprine 10 mg Oral Tablet - take 1 tablet by ORAL route every 8 hours As needed; 20 tablet. - Medication Reconciliation Form, Thank You Letter, Antibiotic Education, Prescription Opioid Use form. - Follow up: Private Physician; When: As needed; Reason: Recheck today's complaints, Re-evaluation by your physician. - Problem is new. - Symptoms are unchanged. Signatures: Guillermo Crawfrod MD MD rn Barber, Rebecca RN RN rb1 Corrections: (The following items were deleted from the chart) 07:42 07:23 01/28/2019 07:23 Discharged to Home. Impression: Injury of muscle, fascia and rb1 tendon at shoulder and upper arm level. Condition is Stable. Forms are Medication Reconciliation Form, Thank You Letter, Antibiotic Education, Prescription Opioid Use. Follow up: Private Physician; When: As needed; Reason: Recheck today's complaints, Re-evaluation by your physician. Problem is new. Symptoms are unchanged. rn
[2019-01-28 11:01] VITALS: BP 149/61; TEMP 98.2; O2SAT 100
== END 2019-01-28 07:42 | disposition home or self-care (01) ==
LOC: ER 07:02
DX: S46.901A Unspecified injury of unspecified muscle, fascia and tendon at shoulder and upper arm level, right arm, initial encounter (principal); W18.09XA Striking against other object with subsequent fall, initial encounter; Y93.9 Activity, unspecified; Y92.9 Unspecified place or not applicable; Z79.01 Long term (current) use of anticoagulants; Z79.82 Long term (current) use of aspirin; Z88.5 Allergy status to narcotic agent; Z95.818 Presence of other cardiac implants and grafts; I10 Essential (primary) hypertension; E03.9 Hypothyroidism, unspecified; E78.5 Hyperlipidemia, unspecified; F32.9 Major depressive disorder, single episode, unspecified
CPT/HCPCS: 96372; 99283; J2175

== ENCOUNTER 2019-08-24 08:43 | Emergency (ER) | payer OTHER ==
--- OUTSIDE RECORDS SUMMARY | 2019-08-24 08:45 | XMS REPORT ---
:1950 Author Organization [facility] Address [address] [place] [address] Care Team Providers Name Role Phone CORNELIO ORTIZ Unavailable Unavailable Problems This patient has no known problems. Allergies, Adverse Reactions, Alerts This patient has no known allergies or adverse reactions. Medications This patient has no known medications. Results Test Description Test Time Test Comments Text Results Atomic Results Result Comments TISSUE EXAM 2018-01-12 13:10:00 Surgical Pathology Report Case: [id number] Authorizing Provider: Cornelio Ortiz MD Collected: 01/09/2018 1704 Ordering Location: [facility] Received: 01/10/2018 0831 SERVICES Pathologist: Avery Leal MD Specimen: Large Intestine, Colon - Rectosigmoid, rectosigmoid and donuts A. RECTUM AND SIGMOID COLON, LAPAROSCOPIC LOW ANTERIOR RESECTION: COLON WITH DIVERTICULAR DISEASE.NEGATIVE FOR DYSPLASIA OR INVASIVE CARCINOMA.SURGICAL MARGINS VIABLE. Signing Pathologist Direct Phone Line: [phone] signed by Avery Leal MD on 01/12/2018 at 1:10 [id number] of colon Rectosigmoid colon and donutsReceived fresh [...] Section code: A1-A2, parallel resection margins; A3-A9, credit resolution representative sections of mucosal outpouchings; A10, credit resolution representative sections of intestinal rings. DB/plPerformed. BASIC METABOLIC PANEL 2018-01-11 06:17:00 Test Item Value Reference Range Comments SODIUM (BEAKER) (test 138 meq/L 136-145 cutw=541) POTASSIUM (BEAKER) (test 3.8 meq/L 3.5-5.1 dclc=689) CHLORIDE (BEAKER) (test 111 meq/L 98-107 evov=610) CO2 (BEAKER) (test afkd=618) 18 meq/L 22-29 BLOOD UREA NITROGEN (BEAKER) 13 mg/dL 7-21 (test fmzp=416) CREATININE (BEAKER) (test 0.67 mg/dL 0.57-1.25 bkrg=046) GLUCOSE RANDOM (BEAKER) 88 mg/dL 70-105 (test zlqo=245) CALCIUM (BEAKER) (test 8.9 mg/dL 8.4-10.2 bliz=966) EGFR (BEAKER) (test 87 mL/min/1.73 sq m ESTIMATED GFR IS NOT nrnu=7510) ACCURATE CREATININE CLEARANCE IN PREDICTING GLOMERULAR FILTRATION RATE. ESTIMATED GFR IS NOT APPLICABLE FOR DIALYSIS PATIENTS. CBC (HEMOGRAM ONLY)2018-01-11 05:46:00 Test Item Value Reference Range Comments WHITE BLOOD CELL COUNT (BEAKER) (test gcgs=446) 11.1 K/ L 3.5-10.5 RED BLOOD CELL COUNT (BEAKER) (test cawc=923) 3.60 M/ L 3.93-5.22 HEMOGLOBIN (BEAKER) (test klwx=715) 9.5 GM/DL 11.2-15.7 HEMATOCRIT (BEAKER) (test iaqe=399) 31.1 % 34.1-44.9 MEAN CORPUSCULAR VOLUME (BEAKER) (test iwbr=224) 86.4 fL 79.4-94.8 MEAN CORPUSCULAR HEMOGLOBIN (BEAKER) (test 26.4 pg 25.6-32.2 ornq=394) MEAN CORPUSCULAR HEMOGLOBIN CONC (BEAKER) (test 30.5 GM/DL 32.2-35.5 uqzq=133) RED CELL DISTRIBUTION WIDTH (BEAKER) (test 15.5 % 11.7-14.4 iuxj=526) PLATELET COUNT (BEAKER) (test lqac=820) 289 K/CU MM 150-450 MEAN PLATELET VOLUME (BEAKER) (test cdue=520) 10.8 fL 9.4-12.3 NUCLEATED RED BLOOD CELLS (BEAKER) (test 0 /100 WBC 0-0 ctcr=556) BASIC METABOLIC [id number] 05:44:00 Test Item Value Reference Range Comments SODIUM (BEAKER) (test 139 meq/L 136-145 qoxo=151) POTASSIUM (BEAKER) (test 3.9 meq/L 3.5-5.1 lpat=549) CHLORIDE (BEAKER) (test 113 meq/L 98-107 xiyr=112) CO2 (BEAKER) (test 18 meq/L 22-29 bffw=017) BLOOD UREA NITROGEN 19 mg/dL 7-21 (BEAKER) (test vbmm=375) CREATININE (BEAKER) (test 0.76 mg/dL 0.57-1.25 gxvd=035) GLUCOSE RANDOM (BEAKER) 128 mg/dL 70-105 (test ajte=503) CALCIUM (BEAKER) (test 8.0 mg/dL 8.4-10.2 cqzc=497) EGFR (BEAKER) (test 75 mL/min/1.73 sq m ESTIMATED GFR IS NOT pkmi=6589) ACCURATE CREATININE CLEARANCE IN PREDICTING GLOMERULAR FILTRATION RATE. ESTIMATED GFR IS NOT APPLICABLE FOR DIALYSIS PATIENTS. CBC (HEMOGRAM ONLY)2018-01-10 05:33:00 Test Item Value Reference Range Comments WHITE BLOOD CELL COUNT (BEAKER) (test omma=387) 12.5 K/ L 3.5-10.5 RED BLOOD CELL COUNT (BEAKER) (test iqnd=995) 3.65 M/ L 3.93-5.22 HEMOGLOBIN (BEAKER) (test aevf=346) 9.8 GM/DL 11.2-15.7 HEMATOCRIT (BEAKER) (test olik=398) 31.8 % 34.1-44.9 MEAN CORPUSCULAR VOLUME (BEAKER) (test urzz=792) 87.1 fL 79.4-94.8 MEAN CORPUSCULAR HEMOGLOBIN (BEAKER) (test 26.8 pg 25.6-32.2 bfqd=189) MEAN CORPUSCULAR HEMOGLOBIN CONC (BEAKER) (test 30.8 GM/DL 32.2-35.5 lfeq=683) RED CELL DISTRIBUTION WIDTH (BEAKER) (test 15.2 % 11.7-14.4 qwzn=513) PLATELET COUNT (BEAKER) (test odnz=153) 302 K/CU MM 150-450 MEAN PLATELET VOLUME (BEAKER) (test duya=821) 11.4 fL 9.4-12.3 NUCLEATED RED BLOOD CELLS (BEAKER) (test 0 /100 WBC 0-0 ffik=049) CBC WITH PLATELET COUNT + MANUAL [id number] 16:02:00 Test Item Value Reference Range Comments WHITE BLOOD CELL COUNT (BEAKER) (test grht=291) 8.5 K/ L 3.5-10.5 RED BLOOD CELL COUNT (BEAKER) (test mwro=710) 4.49 M/ L 3.93-5.22 HEMOGLOBIN (BEAKER) (test cslc=430) 11.8 GM/DL 11.2-15.7 HEMATOCRIT (BEAKER) (test yubm=261) 37.1 % 34.1-44.9 MEAN CORPUSCULAR VOLUME (BEAKER) (test jodg=082) 82.6 fL 79.4-94.8 MEAN CORPUSCULAR HEMOGLOBIN (BEAKER) (test 26.3 pg 25.6-32.2 dqdv=463) MEAN CORPUSCULAR HEMOGLOBIN CONC (BEAKER) (test 31.8 GM/DL 32.2-35.5 ypcl=918) RED CELL DISTRIBUTION WIDTH (BEAKER) (test 14.8 % 11.7-14.4 hygw=997) PLATELET COUNT (BEAKER) (test iyuo=443) 347 K/CU MM 150-450 MEAN PLATELET VOLUME (BEAKER) (test nzmg=937) 10.7 fL 9.4-12.3 NUCLEATED RED BLOOD CELLS (BEAKER) (test 0 /100 WBC 0-0 vhhi=355) NEUTROPHILS RELATIVE PERCENT (BEAKER) (test 71 % mbdk=542) LYMPHOCYTES RELATIVE PERCENT (BEAKER) (test 18 % ghhu=902) MONOCYTES RELATIVE PERCENT (BEAKER) (test 9 % dhtq=321) EOSINOPHILS RELATIVE PERCENT (BEAKER) (test 1 % qesz=627) BASOPHILS RELATIVE PERCENT (BEAKER) (test 1 % mdac=403) NEUTROPHILS ABSOLUTE COUNT (BEAKER) (test 5.98 K/ L 1.56-6.13 avvt=316) LYMPHOCYTES ABSOLUTE COUNT (BEAKER) (test 1.52 K/ L 1.18-3.74 bvmz=462) MONOCYTES ABSOLUTE COUNT (BEAKER) (test 0.79 K/ L 0.24-0.36 xsmx=128) EOSINOPHILS ABSOLUTE COUNT (BEAKER) (test 0.09 K/ L 0.04-0.36 znvc=398) BASOPHILS ABSOLUTE COUNT (BEAKER) (test 0.05 K/ L 0.01-0.08 zfns=459) IMMATURE GRANULOCYTES-RELATIVE PERCENT (BEAKER) 1 % 0-1 (test pijp=0994) [id number] 11:33:00 Test Item Value Reference Range Comments ALBUMIN (BEAKER) (test sfdh=6432) 4.2 g/dL 3.5-5.0 [id number] 13:50:00 Test Item Value Reference Range Comments SODIUM (BEAKER) (test ioou=771) 138 meq/L 136-145 POTASSIUM (BEAKER) (test hlkn=768) 4.7 meq/L 3.5-5.1 CHLORIDE (BEAKER) (test smoo=522) 109 meq/L 98-107 CO2 (BEAKER) (test yufi=547) 22 meq/L 22-29 BUN AND [id number] 13:50:00 Test Item Value Reference Range Comments BLOOD UREA NITROGEN 20 mg/dL 7-21 (BEAKER) (test jnog=191) CREATININE (BEAKER) (test 0.78 mg/dL 0.57-1.25 wjng=672) EGFR (BEAKER) (test 73 mL/min/1.73 sq m ESTIMATED GFR IS NOT zqbs=3502) ACCURATE CREATININE CLEARANCE IN PREDICTING GLOMERULAR FILTRATION RATE. ESTIMATED GFR IS NOT APPLICABLE FOR DIALYSIS PATIENTS. [id number] 13:12:00 Test Item Value Reference Range Comments HEMOGLOBIN (BEAKER) (test gdkp=934) 11.8 GM/DL 11.2-15.7
--- OUTSIDE RECORDS SUMMARY | 2019-08-24 08:45 | XMS REPORT ---
:1950 Author Organization [employer] Care Team Providers Name Role Phone Leora Pedersen Provider Role Unavailable Allergies No Known Allergies Problems Problem Type Condition Code Onset Dates Condition Status Problem Hypothyroidism E03.9 Active Problem Memory disturbance R41.3 Active Problem Depression with anxiety F41.8 Active Problem Anxiety F41.9 Active Problem Coronary artery disease involving I25.10 Active [place] coronary artery of [place] heart, angina presence unspecified Problem Overactive bladder N32.81 Active Problem Arteriosclerosis of coronary artery I25.10 Active Problem Cervical radiculopathy M54.12 Active Problem Lumbago with sciatica, left side M54.42 Active Problem Chronic kidney disease, stage 3 N18.3 Active (moderate) Problem Atherosclerosis of [place] artery of I70.213 Active both lower extremities with intermittent claudication Problem Carotid stenosis, bilateral I65.23 Active Problem Hyperlipidemia, mixed E78.2 Active Problem Sleep disorder G47.9 Active Problem Urine incontinence R32 Active Problem Osteoarthritis of cervical spine, M47.812 Active unspecified spinal osteoarthritis complication status Problem Chronic pain G89.29 Active Problem Osteoarthritis of lumbar spine, M47.816 Active unspecified spinal osteoarthritis complication status Problem Benign essential HTN I10 Active Medications No Known Medications Results No Known Results Summary Purpose [employer] Submission
--- OUTSIDE RECORDS SUMMARY | 2019-08-24 08:45 | XMS REPORT ---
:1950 Author Organization [employer] Care Team Providers Name Role Phone Leora Pedersen Provider Role Unavailable Allergies No Known Allergies Problems Problem Type Condition Code Onset Dates Condition Status Problem Hypothyroidism E03.9 Active Problem Memory disturbance R41.3 Active Problem Depression with anxiety F41.8 Active Problem Anxiety F41.9 Active Problem Coronary artery disease involving I25.10 Active [place] coronary artery of [place] heart, angina presence unspecified Problem Overactive bladder N32.81 Active Problem Arteriosclerosis of coronary artery I25.10 Active Problem Cervical radiculopathy M54.12 Active Problem Lumbago with sciatica, left side M54.42 Active Problem Chronic kidney disease, stage 3 N18.3 Active (moderate) Problem Atherosclerosis of [place] artery of I70.213 Active both lower extremities [...] Problem Benign essential HTN I10 Active Medications Medication Code Code Instructions Start End Status Dosage System Date Date Levothyroxine [facility] 95301113906 100MCG Orally Active 1 tablet Sodium Once a day in the morning on an empty stomach Results No Known Results Summary Purpose [employer] Submission
--- OUTSIDE RECORDS SUMMARY | 2019-08-24 08:45 | XMS REPORT ---
:1950 Author Organization [employer] Care Team Providers Name Role Phone Leora Pedersen Provider Role Unavailable Allergies, Adverse Reactions, Alerts Substance Reaction Event Type Levothyroxine Sodium Info Not Available Drug Allergy Ciprofloxacin Info Not Available Drug Allergy Problems Problem Type Condition Code Onset Dates Condition Status Problem Hypothyroidism E03.9 Active Problem Memory disturbance R41.3 Active Problem Depression with anxiety F41.8 Active Problem Anxiety F41.9 Active Assessment Nocturia R35.1 Active Problem Coronary artery disease involving I25.10 Active [place] coronary artery of [place] heart, angina presence unspecified Assessment Overactive bladder N32.81 Active Problem Overactive bladder N32.81 Active Problem Arteriosclerosis of coronary artery I25.10 Active Problem Cervical radiculopathy M54.12 Active Problem Lumbago with sciatica, left side M54.42 Active Problem Chronic kidney disease, stage 3 N18.3 Active (moderate) Problem Atherosclerosis of [place] artery of I70.213 Active both lower extremities [...] Start End Status Dosage System Date Date HydrALAZINE HCl [facility] 22174992655 100 MG Orally Active 1 tablet Three times a day Furosemide NDC 0 40 mg Oral Once Active 1 tab daily Levothyroxine ND 74263875226 100MCG Active TAKE ONE Sodium TABLET BY MOUTH ONCE DAILY Ranitidine HCl ND 86338836342 150 MG Orally Active 1 capsule Once a day Plavix ND 20415115326 75 MG Orally Active 1 tablet Once a day Metoprolol ND 18198792603 50 MG Orally Active 1 tab Succinate twice daily Trazodone HCl ND 59147632707 50 MG Orally Q Apr 10, Active 1-2 tabs HS 2018 Norvasc [facility] 26187759597 10 MG Orally Active 1 tablet Once a day Rosuvastatin [facility] 74419829952 40 MG Orally Active 1 tablet Calcium Once a day Results No Known Results Summary Purpose [employer]ClinicalWorks Submission
[2019-08-24] MEDS ORDERED: ONDANSETRON 4 MG/2 ML VIAL ONE (09:26)
[2019-08-24] MEDS ORDERED: NA CHLORIDE 0.9% 500 ML ONE (09:26)
[2019-08-24] MEDS ORDERED: DIAZEPAM 2 MG TABLET ONE (09:26)
[2019-08-24 09:40] LABS: Absolute Lymphocytes (CBC) 1.1 K/uL (0.7-4.9); Basophils % 0.9 % (0-1.3); Hematocrit 38.1 % (36.0-45.0); Lymphocytes % 11.2 % (15.3-44.8); MPV 9.1 fL (7.6-11.3); RBC Red Blood Cell Count 4.62 M/uL (3.86-4.86)
[2019-08-24 09:46] LABS: ALT/SGPT 18 U/L (12-78); AST/SGOT 9 U/L (15-37); Albumin 3.5 g/dL (3.4-5.0); Alkaline Phosphatase 63 U/L (45-117); BUN Blood Urea Nitrogen 30 mg/dL (7-18); Bicarbonate 23 mmol/L (21-32); Bilirubin Direct < 0.1 mg/dL (0-0.2); Bilirubin Total 0.2 mg/dL (0.2-1.0); Glucose Level 173 mg/dL (74-106); Lipase 116 U/L (73-393); Potassium 3.8 mmol/L (3.5-5.1); Protein, Total 7.1 g/dL (6.4-8.2); Sodium Level 141 mmol/L (136-145)
[2019-08-24 11:27] LABS: Urine Blood NEGATIVE (NEG); Urine Glucose NEGATIVE (NEG); Urine Protein NEGATIVE (NEG)
--- NOTE | 2019-08-24 11:30 | EDPHYS ---
Physician Documentation [facility] Name: Kali Kumar Age: 69 yrs Sex: Female : 1950 Arrival Date: 08/24/2019 Time: 08:46 Bed 5 Private MD: Andrés Veliz T ED Physician Guillermo Crawford HPI: 08/23 09:08 This 69 yrs old Female presents to ER via Unassigned with complaints of rn Nausea, Dizziness. 09:08 The patient presents to the emergency department with nausea. Onset: The rn symptoms/episode began/occurred 2 day(s) ago. Possible causes: unknown. The symptoms are aggravated by nothing. The symptoms are alleviated by remaining still. Severity of symptoms: At their worst the symptoms were mild in the emergency department the symptoms have improved. The patient has experienced similar episodes in the past. Reports taken off her effexor 2 months ago, since then has been having intermittent/daily episodes of dizziness, feeling off balance, and nausea. Nausea got worse last 2 days. No abd pain/diarrhea/fever. Seen by neuro Dr. Zhang this past week with negative MRI brain. Told most likely withdrawal from anti-depressant. On meclizine and zofran which helps but doesn't take away. Dizziness worse with head movement and improves with holding head still. No headache or vision changes. . Historical: - Allergies: 09:15 Codeine; em - Home Meds: 09:15 aspirin 81 mg Oral chew 1 tab once daily [Active]; Crestor 40 mg Oral tab nightly em [Active]; Diovan 320 mg Oral tab 1 tab once daily [Active]; Effexor Oral 150 mg nightly [Active]; Plavix 75 mg Oral tab 1 tab once daily [Active]; hydralazine 50 mg Oral tab 1 tab three times a day [Active]; levothyroxine 100 mcg tab 1 tab once daily [Active]; metoprolol tartrate 50 mg Oral tab 1 tab 2 times per day [Active]; Norvasc 10 mg Oral tab 1 tab once daily [Active]; - PMHx: 09:15 Depression; Hyperlipidemia; Hypertension; Hypothyroidism; em - PSHx: 09:15 Hysterectomy; ; Cholecystectomy; Bladder suspension; Heart stents; em - Immunization history:: Last tetanus immunization: unknown, Flu vaccine is up to date. - Social history:: Smoking status: Patient denies any tobacco usage or history of. - Family history:: not pertinent. - Hospitalizations: : No recent hospitalization is reported. ROS: 09:08 Constitutional: Negative for fever, chills, and weight loss, Eyes: Negative for injury, rn pain, redness, and discharge, Neck: Negative for injury, pain, and swelling, Cardiovascular: Negative for chest pain, palpitations, and edema, Respiratory: Negative for shortness of breath, cough, wheezing, and pleuritic chest pain, Abdomen/GI: Negative for abdominal pain, diarrhea, and constipation, Back: Negative for injury and pain, : Negative for injury, bleeding, discharge, and swelling, MS/Extremity: Negative for injury and deformity, Skin: Negative for injury, rash, and discoloration, Neuro: Negative for headache, weakness, numbness, tingling, and seizure. Exam: 09:08 Constitutional: This is a well developed, well nourished patient who is awake, alert, rn emotional and crying. Head/Face: Normocephalic, atraumatic. ENT: Dry MM Neck: Trachea midline, no thyromegaly or masses palpated, and no cervical lymphadenopathy. Supple, full range of motion without nuchal rigidity, or vertebral point tenderness. No Meningismus. Cardiovascular: Regular rate and rhythm. No pulse deficits. Respiratory: No increased work of breathing, no retractions or nasal flaring. Abdomen/GI: soft, non-tender, no masses MS/ Extremity: Pulses equal, no cyanosis. Neurovascular intact. Full, normal range of motion. Equal circumference. Neuro: Awake and alert, GCS 15, oriented to person, place, time, and situation. Cranial nerves II-XII grossly intact. Motor strength 5/5 in all extremities. Sensory grossly intact. Cerebellar exam normal. 10:01 ECG was reviewed by the Attending Physician. rn Vital Signs: 09:09 BP 161 / 70; Pulse 66; Resp 18; Temp 97.5; Pulse Ox 100% on R/A; Weight 86.18 kg; em Height 4 ft. 11 in. (149.86 cm); Pain 0/10; 10:01 BP 144 / 60; Pulse 64; Resp 18 S; Pulse Ox 99% on R/A; Pain 0/10; em 11:30 BP 152 / 74; Pulse 78; Resp 18; Pulse Ox 99% on R/A; em 09:09 Body Mass Index 38.37 (86.18 kg, 149.86 cm) em MDM: 08:58 Patient medically screened. rn 11:28 Differential diagnosis: medication withdrawal, viral syndrome, vertigo, anxiety. Data rn reviewed: vital signs, nurses notes, lab test result(s), EKG, and as a result, I will discharge patient. Counseling: I had a detailed discussion with the patient and/or guardian regarding: the historical points, exam findings, and any diagnostic results supporting the discharge/admit diagnosis, lab results, the need for outpatient follow up, to return to the emergency department if symptoms worsen or persist or if there are any questions or concerns that arise at home. Response to treatment: the patient's symptoms have mildly improved after treatment, and as a result, I will discharge patient. Special discussion: I discussed with the patient/guardian in detail that at this point there is no indication for admission to the hospital. It is understood, however, that if the symptoms persist or worsen the patient needs to return immediately for re-evaluation. ED course: Pt with mild improvement, more emotional than anything, already has neg MRI within this past week and > 2 months of symptoms. Will dc home with pcp and neuro f/u. . 08/23 09:07 Order name: Basic Metabolic Panel; Complete Time: 10:00 rn 08/23 09:07 Order name: CBC with Diff; Complete Time: 10:00 rn 08/23 09:07 Order name: Hepatic Function; Complete Time: 10:00 rn 08/23 09:07 Order name: Lipase; Complete Time: 10:00 rn 08/23 11:23 Order name: Urine Dipstick--Ancillary (enter results) dh3 08/23 09:07 Order name: IV Saline Lock; Complete Time: 09:30 rn 08/23 09:07 Order name: Labs collected and sent; Complete Time: 09:30 rn 08/23 09:07 Order name: Urine Dipstick-Ancillary (obtain specimen); Complete Time: 11:01 rn 08/23 09:07 Order name: EKG; Complete Time: 09:08 rn 08/23 09:07 Order name: EKG - Nurse/Tech; Complete Time: 09:30 rn EC:01 Rate is 59 beats/min. Rhythm is regular. QRS [place] is Normal. [place] interval is normal. QRS rn interval is normal. QT interval is normal. No Q waves. T waves are Normal. No ST changes noted. Clinical impression: Sinus bradycardia. Interpreted by me. Reviewed by me. Administered Medications: 09:25 Drug: Zofran (Ondansetron) 4 mg Route: IVP; Site: right hand; em 10:30 Follow up: Response: No adverse reaction; Marked relief of symptoms; Nausea is decreasedem :25 Drug: NS 0.9% 500 ml Route: IV; Rate: bolus; Site: right hand; em 10:30 Follow up: Response: No adverse reaction; IV Status: Completed infusion; IV Intake: em 500ml 09:39 Drug: Valium 2 mg Route: PO; em 11:00 Follow up: Response: No adverse reaction; Marked relief of symptoms em Disposition: 08/24/19 11:29 Discharged to Home. Impression: Anxiety disorder, unspecified, Dehydration, Vertigo. - Condition is Stable. - Discharge Instructions: Dehydration, Adult, Vertigo, Persistent Depressive Disorder. - Medication Reconciliation Form, Thank You Letter, Antibiotic Education, Prescription Opioid Use form. - Follow up: Private Physician; When: As needed; Reason: Recheck today's complaints, Re-evaluation by your physician. - Problem is an ongoing problem. - Symptoms have improved. Signatures: Dispatcher [employer] Chris Garrido RN RN Guillermo Berg MD MD yarn preparation supervisor: (The following items were deleted from the chart) 11:53 11:29 08/24/2019 11:29 Discharged to Home. Impression: Anxiety disorder, unspecified; em Dehydration; Vertigo. Condition is Stable. Forms are Medication Reconciliation Form, Thank You Letter, Antibiotic Education, Prescription Opioid Use. Follow up: Private Physician; When: As needed; Reason: Recheck today's complaints, Re-evaluation by your physician. Problem is an ongoing problem. Symptoms have improved. rn
--- NOTE | 2019-08-24 11:30 | ER ---
Nurse's Notes [facility] Name: Kali Kumar Age: 69 yrs Sex: Female : 1950 Arrival Date: 08/24/2019 Time: 08:46 Bed 5 Private MD: Andérs Veliz T Diagnosis: Anxiety disorder, unspecified;Dehydration;Vertigo Presentation: 08/23 09:09 Chief complaint: Patient states: reports dizziness since May after she was taken em off her Effexor, also reports nausea for 2 days, had MRI on Tuesday (3 days ago) and was told it was good, denies fever, cough or pain. Coronavirus screen: Patient denies fever greater than 100.4F, cough, shortness of breath, or difficulty breathing. Proceed with normal triage process. Ebola Screen: Patient negative for fever greater than or equal to 101.5 degrees Fahrenheit, and additional compatible Ebola Virus Disease symptoms Patient denies exposure to infectious person. Patient denies travel to an Ebola-affected area in the 21 days before illness onset. No symptoms or risks identified at this time. Initial Sepsis Screen: Does the patient meet any 2 criteria? No. Patient's initial sepsis screen is negative. Does the patient have a suspected source of infection? No. Patient's initial sepsis screen is negative. Risk Assessment: Do you want to hurt yourself or someone else? Patient reports no desire to harm self or others. 09:09 Method Of Arrival: Ambulatory em 09:09 Acuity: ISAIAS 3 em Historical: - Allergies: 09:15 Codeine; em - Home Meds: 09:15 aspirin 81 mg Oral chew 1 tab once daily [Active]; Crestor 40 mg Oral tab nightly em [Active]; Diovan 320 mg Oral tab 1 tab once daily [Active]; Effexor Oral 150 mg nightly [Active]; Plavix 75 mg Oral tab 1 tab once daily [Active]; hydralazine 50 mg Oral tab 1 tab three times a day [Active]; levothyroxine 100 mcg tab 1 tab once daily [Active]; metoprolol tartrate 50 mg Oral tab 1 tab 2 times per day [Active]; Norvasc 10 mg Oral tab 1 tab once daily [Active]; - PMHx: 09:15 Depression; Hyperlipidemia; Hypertension; Hypothyroidism; em - PSHx: 09:15 Hysterectomy; ; Cholecystectomy; Bladder suspension; Heart stents; em - Immunization history:: Last tetanus immunization: unknown, Flu vaccine is up to date. - Social history:: Smoking status: Patient denies any tobacco usage or history of. - Family history:: not pertinent. - Hospitalizations: : No recent hospitalization is reported. Screenin:23 Abuse screen: Denies threats or abuse. Denies injuries from another. Nutritional jl7 screening: No deficits noted. Tuberculosis screening: No symptoms or risk factors identified. Fall Risk IV access (20 points). Total Schulz Fall Scale indicates No Risk (0-24 pts). Assessment: 09:08 General: Appears in no apparent distress. comfortable, well groomed, well developed, em well nourished, Behavior is cooperative, anxious, crying, Denies fever. Pain: Denies pain. Neuro: Level of Consciousness is awake, alert, obeys commands, Oriented to person, place, time, situation, Appropriate for age Incoming Inspector are equal bilaterally Moves all extremities. Gait is steady, Speech is normal, Facial symmetry appears normal, Intact Reports dizziness, Denies numbness headache. Cardiovascular: Denies chest pain, shortness of breath, Capillary refill < 3 seconds Patient's skin is warm and dry. Rhythm is sinus rhythm. Respiratory: Airway is patent Respiratory effort is even, unlabored, Respiratory pattern is regular, symmetrical. GI: Abdomen is flat, Abd is soft and non tender X 4 quads. Reports nausea, Patient currently denies vomiting. : Denies burning with urination, urinary frequency. Derm: Skin is intact, is thin, Skin is pink, warm \T\ dry. Musculoskeletal: Capillary refill < 3 seconds, Range of motion: intact in all extremities. 10:10 Reassessment: Patient appears in no apparent distress at this time. Patient and/or em family updated on plan of care and expected duration. Pain level reassessed. Patient is alert, oriented x 3, equal unlabored respirations, skin warm/dry/pink. nausea has improved, reports she is still dizzy, reports being unable to give UA at this time. 11:30 Reassessment: Patient appears in no apparent distress at this time. Patient and/or em family updated on plan of care and expected duration. Pain level reassessed. Patient is alert, oriented x 3, equal unlabored respirations, skin warm/dry/pink. Patient states feeling better. Patient states symptoms have improved. Vital Signs: 09:09 BP 161 / 70; Pulse 66; Resp 18; Temp 97.5; Pulse Ox 100% on R/A; Weight 86.18 kg; em Height 4 ft. 11 in. (149.86 cm); Pain 0/10; 10:01 BP 144 / 60; Pulse 64; Resp 18 S; Pulse Ox 99% on R/A; Pain 0/10; em 11:30 BP 152 / 74; Pulse 78; Resp 18; Pulse Ox 99% on R/A; em 09:09 Body Mass Index 38.37 (86.18 kg, 149.86 cm) em ED Course: 08:46 Patient arrived in ED. ag5 08:46 Andrés Veliz MD is Private Physician. ag5 08:56 Guillermo Crawford MD is Attending Physician. rn 08:58 Chris Ayoub RN is Primary Nurse. em 09:12 Triage completed. em 09:15 Arm band placed on. em 09:23 Patient has correct armband on for positive identification. Placed in gown. Bed in low jl7 position. Call light in reach. Side rails up X 1. Pulse ox on. NIBP on. Warm blanket given. 09:23 Initial lab(s) drawn, by me, sent to lab. Inserted saline lock: 20 gauge in right hand, jl7 using aseptic technique. Blood collected. 09:28 EKG done, by audiovisual tech. reviewed by Guillermo Crawford MD. at1 10:50 Urine collected: clean catch specimen, clear. dh3 11:53 No provider procedures requiring assistance completed. IV discontinued, intact, em bleeding controlled, No redness/swelling at site. Pressure dressing applied. Administered Medications: 09:25 Drug: Zofran (Ondansetron) 4 mg Route: IVP; Site: right hand; em 10:30 Follow up: Response: No adverse reaction; Marked relief of symptoms; Nausea is decreasedem 09:25 Drug: NS 0.9% 500 ml Route: IV; Rate: bolus; Site: right hand; em 10:30 Follow up: Response: No adverse reaction; IV Status: Completed infusion; IV Intake: em 500ml 09:39 Drug: Valium 2 mg Route: PO; em 11:00 Follow up: Response: No adverse reaction; Marked relief of symptoms em Intake: 10:30 IV: 500ml; Total: 500ml. em Outcome: 11:29 Discharge ordered by . rn 11:53 Discharged to home via wheelchair. em 11:53 Condition: good 11:53 Discharge instructions given to patient, Instructed on discharge instructions, follow up and referral plans. Demonstrated understanding of instructions, follow-up care. 11:53 Patient left the ED. em Signatures: Chris Ayoub RN RN em Guillermo Crawford MD MD rn Gonzales, Amanda, channel cementer EKG Tat1 Richa Vargas RN RN jl7 Alejandra Masterson 3 [place] 5 Corrections: (The following items were deleted from the chart) 09:39 09:09 BP 161 / 70; Pulse 66bpm; Resp 18bpm; Pulse Ox 100% RA; 86.18 kg; Height 4 ft. 11 em in.; BMI: 38.3; Pain 0/10; em
[2019-08-24 12:00] VITALS: TEMP 97.5
[2019-08-24 12:01] VITALS: BP 144/60; O2SAT 99
--- NOTE | 2019-08-24 14:37 | EKG ---
Test Date: 2019-08-24 Test Time: 09:28:52 Play Leader: SHIRLEY MEASUREMENT RESULTS: Intervals: Rate: 59 ID: [id number] QRSD: 82 QT: 458 QTc: 453 [place]: P: 67 ID: [id number] QRS: 26 T: 54 INTERPRETIVE STATEMENTS: Sinus bradycardia Otherwise normal ECG Compared to ECG 11/04/2017 05:20:34 Sinus rhythm no longer present Electronically Signed On 08-24-19 14:36:40 CDT by Randall Keita
== END 2019-08-24 11:53 | disposition home or self-care (01) ==
LOC: ER 08:43
DX: E86.0 Dehydration (principal); F41.9 Anxiety disorder, unspecified; I10 Essential (primary) hypertension; F32.9 Major depressive disorder, single episode, unspecified; E78.5 Hyperlipidemia, unspecified; E03.9 Hypothyroidism, unspecified; Z79.01 Long term (current) use of anticoagulants; Z79.82 Long term (current) use of aspirin; Z88.5 Allergy status to narcotic agent; Z95.818 Presence of other cardiac implants and grafts
CPT/HCPCS: 96361; 93005; 85025; 80048; 36415; 80076; 81003; 83690; 96374; 99284; J7040; J2405

== ENCOUNTER 2020-04-17 21:59 | Emergency (ER) | payer OTHER ==
--- OUTSIDE RECORDS SUMMARY | 2020-04-17 22:01 | XMS REPORT | Clinical Summary ---
:1950 Author Organization [facility] [address] [place] [address] Care Team Providers Name Role Phone Kulwinder Panchal MD Primary Care Provider Allergies Active [...] stomach. venlafaxine Take 150 mg by 0 Act justin (EFFEXOR-XR) 150 MG 24 mouth nightly . hr capsule metoprolol (LOPRESSOR) Take 50 mg by 0 Active 50 MG tablet mouth 2 (two) times daily. amLODIPine (NORVASC) 10 Take 10 mg by 0 Active MG tablet mouth nightly . hydrALAZINE Take 50 mg by 0 Acti ve (APRESOLINE) 50 MG mouth 3 (three) tablet times daily. aspirin 81 MG EC tablet Take 81 mg by 0 Active mouth daily. Active Problems Problem Noted Date Diverticulitis of large intestine without bleeding Diverticulitis large intestine 01/09/2018 Social History Tobacco Use Types Packs/Day Years Used Date Former Smoker Smokeless Tobacco: Never Used Alcohol Use Drinks/Week oz/Week Comments No Sex Assigned at Date Recorded Not on file Last Filed Vital Signs Not on file Plan of Treatment Health Maintenance Due Date Last Done Comments BREAST CANCER SCREENING 1950 COLON CANCER SCREENING COLONOSCOPY 1950 PNEUMOCOCCAL 65+ YRS (1 of 1 - [id number]) 2013 MEDICARE ANNUAL WELLNESS (YEAR 2 or FIRST YEAR if no 07/22/2018 IPPE) INFLUENZA VACCINE (#1) 2020 Results Not on fileafter 04/17/2019 Insurance Payer Benefit Plan / Subscriber ID Effective Dates Phone Addre ss Type Group CARE IMPROVEMENT CARE IMPROVEMENT [id number] 2017-Present MEDICARE MGD CARE PLUS Advance Directives For more information, please contact: [phone] Code Status Date Activated Date Inactivated Comments Full Code 01/09/2018 8:52 PM 01/11/2018 8:05 PM This code status was determined by: Patient
--- OUTSIDE RECORDS SUMMARY | 2020-04-17 22:01 | XMS REPORT | Clinical Summary ---
:1950 Author Organization [facility] Address [address] [place] [address] Care Team Providers Name Role Phone Harry Panchal DO Primary Care Provider Allergies Active Allergy Reactions Severity Noted Date Comments Codeine 11/15/2017 Medications Medication Sig Dispensed Refills Start Date End Date Status ferrous sulfate 325 TAKE 1 TABLET BY 60 tablet 0 03/20/2018 Active (65 FE) MG EC tablet MOUTH ONCE DAILY WITH BREAKFAST Active Problems Problem Noted Date Anemia 02/17/2018 Surgical History Surgery Date Site/Laterality Comments BREAST SURGERY COLONOSCOPY ORTHOPEDIC SURGERY HYSTERECTOMY Medical History Medical History Date Comments Anxiety Depression Diverticulosis Family History Medical History Relation Name Comments [...] (#1) 1998 65+ PNEUMOCOCCAL VACCINE (1 of 1 - PPSV23) 2013 INFLUENZA VACCINE 12/22/2019 Results Not on fileafter 04/17/2019 Advance Directives For more information, please contact: [phone] Type Date Recorded 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
--- OUTSIDE RECORDS SUMMARY | 2020-04-17 22:02 | XMS REPORT | Continuity of Care Document ---
:1950 Author Organization [employer] Care Team Providers Name Role Phone Weplay Unavailable Un available Problems Problem Status Onset Classification Date Comments Sourc e Date Reported Dizziness Active Problem 09/29/2019 [facility] (finding) Neuro Hypertensive Active Problem 09/29/2019 [facility] r disorder, systemic N euro arterial (disorder) Hyperlipidemia Active Problem 09/29/2019 Misc her (disorder) Neuro Post-operative Active Problem 09/29/2019 Misc her hypothyroidism Neuro (disorder) Venous hemangioma Active Problem 09/29/2019 M ischer of brain Neuro (disorder) Medications Medication Details Route Status Patient Ordering Order Source Instructions Provider Date clopidogrel 75 75 mg = 1 Active [facility] mg oral tablet tab, PO, 020 Neuro Daily, 0 Refill(s) Lorazepam 1 MG 1 mg = 1 Active [facility] Oral Tablet tab, PO, 020 Neuro TID, 0 Refill(s) losartan 50 mg 50 mg = 1 Active [facility] oral tablet tab, PO, 020 Neuro Daily, # 30 tab, 0 Refill(s) rosuvastatin 40 40 mg = 1 Active Mische r mg oral capsule cap, PO, 020 Neuro Daily, 0 Refill(s) doxepin 10 mg 10 mg = 1 On Hold [facility] oral capsule cap, PO, 020 Neuro Bedtime, # 30 cap, 0 Refill(s) Amlodipine 10 MG 10 mg = 1 Active Misch er Oral Tablet tab, PO, 020 Neuro [Norvasc] Daily, # 30 tab, 1 Refill(s) Hydralazine 100 mg = 1 Active [facility] Hydrochloride tab, PO, 020 Neuro 100 MG Oral TID, # 90 Tablet tab, 3 Refill(s) metoprolol 50 mg 50 mg = 1 Active Misch er oral tablet, tab, PO, 020 Neuro extended release Daily, 0 Refill(s) Furosemide 40 MG 40 mg = 1 Active Misch er Oral Tablet tab, PO, 020 Neuro Daily, 0 Refill(s) levothyroxine 100 Active [facility] 100 mcg (0.1 mg) microgram = 020 Venancio ro oral tablet 1 tab, PO, Daily, 0 Refill(s) Allergies, Adverse Reactions, Alerts Substance Category Reaction Severity Reaction Status Date Comments S ource type Reported codeine Assertion Drug Active Mische r allergy Neuro Immunizations No Data Provided for This Section Results Order Results Value Reference Date Interpretation Comments Source Name Range CHEM BUN 27 7 - 25 08/14/ Result Comment: [facility] PANEL 2019
Lab Neuro test performed by:
[facility]
[address] [place] [address]
[place] [id number]
Nick Medrano CHEM Creatinine 0.95 0.60 - 0.93 08/14/ Result Comment: ischer PANEL Lvl 2019 For patients Neuro >49 years of age, the reference limit
for Creatinine is approximately 13% higher for people
iden tified as -Audrey n. CHEM eGFR NON-AFR. 60 > OR = 60 08/14/ [facility] PANEL MACANESE mL/min/1.73 2019 Neuro m2 CHEM eGFR 70 > OR = 60 08/14/ [facility] PANEL MACANESE mL/min/1.73 2019 Neuro m2 CHEM B/C Ratio 28 6 - 22 08/14/ Result Comment: Mische r PANEL 2019 FASTING:NO
Neuro
FASTING: NO Pathology Reports No Data Provided for This Section Diagnostic Reports No Data Provided for This Section Consultation Notes No Data Provided for This Section Discharge Summaries No Data Provided for This Section History and Physicals No Data Provided for This Section Vital Signs Vital Sign Value Date Comments Source Systolic (mm Hg) 151 08/15/2019 [facility] Venancoi ro Diastolic (mm Hg) 75 08/15/2019 [facility] Ne uro Heart Rate 62 08/15/2019 [facility] Respitory Rate 16 08/15/2019 [facility] Height 147.32 cm 08/15/2019 [facility] 87.273 [facility] BMI Calculated 40.21 08/15/2019 [facility] Encounters Location Location Encounter Encounter Reason Attending ADM DC Stat us Source Details Type Number For Provider Date Date Visit Outpatient [id number] Ramon 08/14 Active [facility] [place] [facility] Outpatient [id number] Andrés Veliz 08/14 08/15 [facility] /2019 [facility] [place] Out[facility] [id number] Ramon 09/26 Active [facility] [place] [facility] Ambulatory [id number] Andrés Veliz 09/26 09/26 [facility] Pre-Reg /2019 [facility] [place] Procedures Procedure Code Date Perfomer Comments Source [id number] [facility] Assessment and Plan No Data Provided for This Section Plan of Care No Data Provided for This Section Social History Social History Date Source Social History TypeResponse 08/15/2019 [facility] Ne[facility] o Smoking Status Former smoker; Type: Cigarettes; Exposur e to Tobacco Smoke Unable to obtain; Cigarette Smoking Last 365 Days No; Reg Smoking Cessation Counseling No entered on: 08/15/19 Family History No Data Provided for This Section Advance Directives No Data Provided for This Section Functional Status No Data Provided for This Section
--- OUTSIDE RECORDS SUMMARY | 2020-04-17 22:04 | XMS REPORT | Continuity of Care Document ---
:1950 Author Organization [facility] t Address [address] [place] [address] Care Team Providers Name Role Phone Abdulkadir Sara PATTEN Primary Care Physician Lab, Fam Pob I Attending Clinician Unavailable Hardeep Zhang Attending Clinician Doctor Unassigned, Name Attending Clinician Unavailable Ursula RODRIGUEZ, L Attending Clinician MERRY ORTIZ Attending Clinician Unavailable MERRY ORTIZ Admitting Clinician Unavailable Problems Condition Condition Condition Status Onset Resolution Last Treating Co mments Source Name Details Category Date Date Treatment Clinician Date Anemia Anemia Disease Active Irving 02-17 Methodi 00:00: st 00 Diverticul Diverticul Disease Active [facility] itis large itis large 8-20 Mary kes - intestine intestine 00:00: Medi emma 00 Center Hypothyroi Hypothyroi Problem Active [facility] dism dism [facility] Memory Memory Problem Active [facility] disturbanc disturbanc Mary kes - e e [facility] Depression Depression Problem Active [facility] with with [facility] - anxiety anxiety [facility] Anxiety Anxiety Problem Active [facility] Arterioscl Arterioscl Problem Active [facility] erosis of erosis of Luke s - coronary coronary Memori a artery artery l [facility] Overactive Overactive Problem Active [facility] bladder bladder [facility] Cervical Cervical Problem Active [facility] t radiculopa radiculopa Mary kes - thy thy [facility] Lumbago Lumbago Problem Active [facility] with with [facility] - sciatica, sciatica, Rebel fabio left side left side l [facility] Chronic Chronic Problem Active [facility] kidney kidney [facility] - disease, disease, Memori a stage 3 stage 3 l (moderate) (moderate) Ou tpati ent Clinics 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 [facility] - tolowa dee-ni' tolowa dee-ni' Memoria artery of artery of l both lower both lower Ou tpati extremitie extremitie en t s with s with Clinics intermitte intermitte nt nt claudicati claudicati on on Carotid Carotid Problem Active [facility] stenosis, stenosis, Luke s - bilateral bilateral Rebel fabio l [facility] Hyperlipid Hyperlipid Problem Active [facility] emia, emia, [facility] Sleep Sleep Problem Active [facility] disorder disorder [facility] Urine Urine Problem Active [facility] incontinen incontinen Mary kes - ce ce [facility] Osteoarthr Osteoarthr Problem Active [facility] itis of itis of [facility] - cervical cervical Memori a spine, spine, l unspecifie unspecifie Ou tpati d spinal d spinal ent osteoarthr osteoarthr Cl inics itis itis complicati complicati on status on status Chronic Chronic Problem Active [facility] pain pain [facility] Osteoarthr Osteoarthr Problem Active [facility] itis of itis of [facility] - lumbar lumbar Memoria spine, spine, l unspecifie unspecifie Ou tpati d spinal d spinal ent osteoarthr osteoarthr Cl inics itis itis complicati complicati on status on status Benign Benign Problem Active [facility] essential essential Luke s - HTN HTN [facility] Dizziness Problem Active 2019-09-29 Me moria (finding) 21:16:41 l Anton Dizziness (finding) Active Problem 09/29/2019 [facility] Hypertensi Problem Active 2019-09-29 M emoria ve 21:16:41 l disorder, [place] systemic Hypertensi arterial ve (disorder) disorder, systemic arterial (disorder) Active Problem 09/29/2019 [facility] Hyperlipid Problem Active 2019-09-29 M emoria emia 21:16:41 l (disorder) Murray n Hyperlipid emia (disorder) Active Problem 09/29/2019 [facility] Post-opera Problem Active 2019-09-29 M emoria tive 21:16:41 l hypothyroi Murray n dism Post-opera (disorder) tive hypothyroi dism (disorder) Active Problem 09/29/2019 [facility] Venous Problem Active 2019-09-29 Memor ia hemangioma 21:16:41 l of brain Venous Murray n (disorder) hemangioma of brain (disorder) Active Problem 09/29/2019 [facility] Allergies, Adverse Reactions, Alerts Allergy Allergy Status Severity Reaction(s) Onset Inactive Treating Comm ents Source Name Type Date Date Clinician Codeine Propensi Active Itching, [facility] ty to Nausea Only 01-09 [facility] - adverse 00:00: Medical reaction 00 Center s Ciproflo Drug Active Nausea And [facility] xacin Allergy Vomiting 12-26 [facility] - 00:00: Medical 00 [place] Levoflox Drug Active Nausea And [facility] acin Allergy Vomiting 12-26 [facility] - 00:00: Medical 00 [place] Codeine Propensi Active Irving ty to 11-15 Methodi adverse 00:00: st reaction 00 s to drug Levothyr Adverse Active Info Not [facility] t oxine Reaction Available [facility] - Sodium [facility] Ciproflo Adverse Active Info Not [facility] t xacin Reaction Available [facility] codeine codeine Active [facility] [place] Family History Family Member Diagnosis Comments Start Date Stop Date Source Natural brother Diabetes Mcdonald M ethodist Natural brother Heart disease [place] Alevism Social History Social Habit Start Date Stop Date Quantity Comments Source Sex Assigned At [facility] Medical [place] Tobacco use and 2018-01-10 2018-01-10 Never used [facility] - exposure 00:00:00 00:00:00 Medical [place] Alcohol intake 2018-01-10 2018-01-10 Current [facility] es - 00:00:00 00:00:00 non-drinker of Medical Ce nter alcohol (finding) Smoking Status Start Date Stop Date Source Social History 2019-08-15 19:20:31 2019-08-15 19:20:31 [facility] Never smoker Irving Marc Medications Ordered Filled Start Stop Current Ordering Indication Dosage Frequency Signature Comments Components Source Medication Medication Date Date Medication? Clinician (SIG) Name Name clopidogrel 2020-0 Yes 75 mg = 1 M emoria 75 mg oral 3-25 tab, PO, l tablet 19:25: Daily, 0 [place] 00 Refill(s) Lorazepam 1 2020-0 Yes 1 mg = 1 Me moria MG Oral 3-25 tab, PO, l Tablet 19:25: TID, 0 [place] 00 Refill(s) losartan 50 2020-0 Yes 50 mg = 1 M emoria mg oral 3-25 tab, PO, l tablet 19:25: Daily, # Anton 00 30 tab, 0 Refill(s) rosuvastati 2020-0 Yes 40 mg = 1 M emoria n 40 mg 3-25 cap, PO, l oral 19:25: Daily, 0 Anton capsule 00 Refill(s) doxepin 10 2020-0 Yes 10 mg = 1 Me moria mg oral 3-25 cap, PO, l capsule 19:25: Bedtime, # Herm anirudh 00 30 cap, 0 Refill(s) clopidogrel 2020-0 Yes 75 mg = 1 M emoria 75 mg oral 3-25 tab, PO, l tablet 19:25: Daily, 0 Anton 00 Refill(s) Lorazepam 1 2020-0 Yes 1 mg = 1 Me moria MG Oral 3-25 tab, PO, l Tablet 19:25: TID, 0 [place] 00 Refill(s) losartan 50 2020-0 Yes 50 mg = 1 M emoria mg oral 3-25 tab, PO, l tablet 19:25: Daily, # [place] 00 30 tab, 0 Refill(s) rosuvastati 2020-0 Yes 40 mg = 1 M emoria n 40 mg 3-25 cap, PO, l oral 19:25: Daily, 0 Anton capsule 00 Refill(s) doxepin 10 2020-0 Yes 10 mg = 1 Me moria mg oral 3-25 cap, PO, l capsule 19:25: Bedtime, # Herm anirudh 00 30 cap, 0 Refill(s) clopidogrel 2020-0 Yes 75 mg = 1 M emoria 75 mg oral 3-25 tab, PO, l tablet 19:25: Daily, 0 Anton 00 Refill(s) Lorazepam 1 2020-0 Yes 1 mg = 1 Me moria MG Oral 3-25 tab, PO, l Tablet 19:25: TID, 0 [place] 00 Refill(s) losartan 50 2020-0 Yes 50 mg = 1 M emoria mg oral 3-25 tab, PO, l tablet 19:25: Daily, # [place] 00 30 tab, 0 Refill(s) rosuvastati 2020-0 Yes 40 mg = 1 M emoria n 40 mg 3-25 cap, PO, l oral 19:25: Daily, 0 Anton capsule 00 Refill(s) doxepin 10 2020-0 Yes 10 mg = 1 Me moria mg oral 3-25 cap, PO, l capsule 19:25: Bedtime, # Herm anirudh 00 30 cap, 0 Refill(s) Amlodipine 2020-0 Yes 10 mg = 1 Me moria 10 MG Oral 3-25 tab, PO, l Tablet 18:46: Daily, # [place] [Norvasc] 00 30 tab, 1 Refill(s) Hydralazine 2020-0 Yes 100 mg = 1 Memoria Hydrochlori 3-25 tab, PO, l de 100 MG 18:46: TID, # 90 Her dickens Oral Tablet 00 tab, 3 Refill(s) metoprolol 2020-0 Yes 50 mg = 1 Me moria 50 mg oral 3-25 tab, PO, l tablet, 18:46: Daily, 0 Murray n extended 00 Refill(s) release Furosemide 2020-0 Yes 40 mg = 1 Me moria 40 MG Oral 3-25 tab, PO, l Tablet 18:46: Daily, 0 Anton 00 Refill(s) levothyroxi 2020-0 Yes 100 Memori a ne 100 mcg 3-25 microgram l (0.1 mg) 18:46: = 1 tab, Lupe nn oral tablet 00 PO, Daily, 0 Refill(s) Amlodipine 2020-0 Yes 10 mg = 1 Me moria 10 MG Oral 3-25 tab, PO, l Tablet 18:46: Daily, # [place] [Norvasc] 00 30 tab, 1 Refill(s) Hydralazine 2020-0 Yes 100 mg = 1 Memoria Hydrochlori 3-25 tab, PO, l de 100 MG 18:46: TID, # 90 Her dickens Oral Tablet 00 tab, 3 Refill(s) metoprolol 2020-0 Yes 50 mg = 1 Me moria 50 mg oral 3-25 tab, PO, l tablet, 18:46: Daily, 0 Murray n extended 00 Refill(s) release Furosemide 2020-0 Yes 40 mg = 1 Me moria 40 MG Oral 3-25 tab, PO, l Tablet 18:46: Daily, 0 [place] 00 Refill(s) levothyroxi 2020-0 Yes 100 Memori a ne 100 mcg 3-25 microgram l (0.1 mg) 18:46: = 1 tab, Lupe nn oral tablet 00 PO, Daily, 0 Refill(s) Amlodipine 2020-0 Yes 10 mg = 1 Me moria 10 MG Oral 3-25 tab, PO, l Tablet 18:46: Daily, # Anton [[facility]] 00 30 tab, 1 Refill(s) Hydralazine 2020-0 Yes 100 mg = 1 Memoria Hydrochlori 3-25 tab, PO, l de 100 MG 18:46: TID, # 90 Her dickens Oral Tablet 00 tab, 3 Refill(s) metoprolol 2020-0 Yes 50 mg = 1 Me moria 50 mg oral 3-25 tab, PO, l tablet, 18:46: Daily, 0 Murray n extended 00 Refill(s) release Furosemide 2020-0 Yes 40 mg = 1 Me moria 40 MG Oral 3-25 tab, PO, l Tablet 18:46: Daily, 0 [place] 00 Refill(s) levothyroxi 2020-0 Yes 100 Memori a ne 100 mcg 3-25 microgram l (0.1 mg) 18:46: = 1 tab, Lupe nn oral tablet 00 PO, Daily, 0 Refill(s) ferrous 2017-05 Yes TAKE 1 Mcdonald sulfate 325 0-29 TABLET BY Met hodi (65 FE) MG 00:00: MOUTH ONCE s t EC tablet 00 DAILY WITH BREAKFAST rosuvastati Yes 10mg QD Take [address] n (CRESTOR) 8-22 by mouth Luke s - 20 MG 18:04: nightly . Medical tablet 59 Center irbesartan Yes 300mg QD Take [address] (AVAPRO) 8-22 mg by [facility] - 300 MG 18:04: mouth Medical tablet 59 daily . Center clopidogrel 0 Yes 75mg QD Take [address] (PLAVIX) 75 8-22 by mouth Luke s - mg tablet 18:04: daily. Medica l 59 Center levothyroxi Yes 100ug Take [address] ne 8-22 mcg by Lukes - (SYNTHROID, 18:04: mouth Medic al LEVOTHROID) 59 Every Center 100 MCG morning on tablet an empty stomach. venlafaxine 2018 Yes 150mg QD Take [address] (EFFEXOR-XR 8-22 mg by [facility]ukes - ) 150 MG 24 18:04: mouth Medic al hr capsule 59 nightly . Cent er metoprolol Yes 50mg Q.5D Take [address] (LOPRESSOR) 8-22 by mouth 2 Mary kes - 50 MG 18:04: (two) Medical tablet 59 times Center daily. amLODIPine Yes 10mg QD Take [address] (NORVASC) 8-22 by mouth Lukes - 10 MG 18:04: nightly . Medical tablet 59 Center hydrALAZINE Yes 50mg [id number] Take [address] (APRESOLINE 8- [id number] by mouth 3 [facility]ukes - ) 50 MG 18:04: 3D (three) Medical tablet 59 times Center daily. aspirin 81 Yes 81mg QD Take [address] MG EC 8-22 by mouth Lukes - tablet 18:04: daily. Medical 59 Center Levothyroxi Levothyroxi Yes Leora [address] ne Sodium ne Sodium [place] in the [facility]ukes - morning on Memoria an empty l stomach Outpati ent Clinics Vital Signs Vital Name Observation Time Observation Value Comments Source Systolic (mm Hg) 2019-08-15 18:43:00 Rebel [place] Diastolic (mm Hg) 2019-08-15 18:43:00 [facility] orianmol [place] Heart Rate 2019-08-15 18:43:00 [facility] Respitory Rate 2019-08-15 18:43:00 Ally al Anton Height 2019-08-15 18:43:00 147.32 cm [facility] Weight 2019-08-15 18:43:00 [facility] BMI Calculated 2019-08-15 18:43:00 Ally Hi Procedures Procedure Date / Time Performed Performing Clinician [facility] e Carpal tunnel release [facility] Plan of Care Planned Activity Planned Date Details Comments Source Future Scheduled 2020-01-22 INFLUENZA VACCINE (#1) [facility] - Test 00:00:00 [code = INFLUENZA Medical Ce nter VACCINE (#1)] Future Scheduled 2019-12-22 INFLUENZA VACCINE [place] [facility] Test 00:00:00 [code = INFLUENZA VACCINE] Future Scheduled 2018-07-[address] [facility] - Test 00:00:00 WELLNESS (YEAR 2 or Medical Center FIRST YEAR if no IPPE) [code = MEDICARE ANNUAL WELLNESS (YEAR 2 or FIRST YEAR if no IPPE)] Future Scheduled 2013 65+ PNEUMOCOCCAL [facility]onald [facility]vism Test 00:00:00 VACCINE (1 of 1 - PPSV23) [code = 65+ PNEUMOCOCCAL VACCINE (1 of 1 - PPSV23)] Future Scheduled 2013 PNEUMOCOCCAL 65+ YRS [facility] - Test 00:00:00 (1 of 1 - Medical Center [id number]) [code = PNEUMOCOCCAL 65+ YRS (1 of 1 - [id number] PCV13)] Future Scheduled 1998 BREAST CANCER [facility] thodist Test 00:00:00 SCREENING [code = BREAST CANCER SCREENING] Future Scheduled 1998 COLONOSCOPY SCREENING [facility] Alevism Test 00:00:00 [code = COLONOSCOPY SCREENING] Future Scheduled 1998 SHINGLES VACCINES (#1) [facility] Alevism Test 00:00:00 [code = SHINGLES VACCINES (#1)] Future Scheduled [address] Sathish es - Test 00:00:00 malignant neoplasm of Medica l Center breast (procedure) [code = 561464793] Future Scheduled [address] [facility] [facility] Sathish es - Test 00:00:00 malignant neoplasm of Medica l Center colon (procedure) [code = 311092446] Encounters Start End Encounter Admission Attending Care Care Encounter Source Date/Time Date/Time Type Type Clinicians Facility Department ID 2020-04-04 2020-04-04 Laboratory Lab, [facility] [id number] 17:37:06 17:57:06 Only Fam [facility] [id number] [place] [id number] [facility] [id number] nal [address] 2019-09-27 2019-09-27 Outpatient Leatha, MHMISCHER MHMISCHER [id number] 09:45:00 09:45:00 Ramon [facility] 2019-09-27 2019-09-27 Outpatient Leatha, MHMISCHER MHMISCHER [id number] 09:45:00 09:45:00 Ramon [facility] 2019-09-27 2019-09-27 Outpatient Leatha, MHMISCHER MHMISCHER [id number] 09:45:00 09:45:00 Ramon [facility] 2019-08-23 2019-08-23 Outpatient Maria [place] [facility] [id number] 14:06:00 14:06:00 [facility] Family Medicine [facility] 2019-08-21 2019-08-21 Orders Doctor CORNELL [id number] 00:00:00 00:00:00 Only Unassigned, MCKINNON [id number] [place] [id number] [facility] 2019-08-15 2019-08-15 Outpatient Leatha, MHMISCHER MHMISCHER [id number] 14:00:00 23:59:59 Ramon [facility] 2019-08-15 2019-08-15 Outpatient JEREMIAH ZhangMISCHER MHMISCHER [id number] 14:00:00 23:59:59 Ramon 00 [facility] 2019-08-15 2019-08-15 Outpatient Leatha, MHMISCHER MHMISCHER [id number] 14:00:00 23:59:59 Ramon 00 [facility] 2019-07-23 2019-07-23 Outpatient [facility] [id number] 15:30:00 15:30:00 t Specialty/U Mary kes - Specialty rology [facility] a /Urology Clinic l Clinic Outpati ent Clinics 2019-07-17 2019-07-17 Out[facility] [id number] 10:30:00 10:30:00 t Specialty/U Mary kes - Specialty rology Memori a /Urology Clinic l Clinic Outpati ent Clinics 2019-06-18 2019-06-18 [facility] [id number] 00:00:00 00:00:00 Chandu Perdomo [facility] [id number] Surgical [id number] Specialti [id number] es 198 [place] 2019-06-05 2019-06-05 [facility] [id number] 00:00:00 00:00:00 Chandu Perdomo [facility] [id number] Surgical [id number] Specialti [id number] es 198 [place] Results Test Description Test Time Test Comments Results Result [facility] e Comments CHEM PANEL 2019-08-15 27 Memorial 20:09:00 Anton CHEM PANEL 2019-08-15 0.95 Memorial 20:09:00 Anton CHEM PANEL 2019-08-15 60 Memorial 20:09:00 [place] CHEM PANEL 2019-08-15 70 Memorial 20:09:00 [place] CHEM PANEL 2019-08-15 28 Memorial 20:09:00 [place] CHEM PANEL 2019-08-15 27 Memorial 20:09:00 Anton CHEM PANEL 2019-08-15 0.95 Memorial 20:09:00 [place] CHEM PANEL 2019-08-15 60 Memorial 20:09:00 Anton CHEM PANEL 2019-08-15 70 Memorial 20:09:00 [place] CHEM PANEL 2019-08-15 28 Memorial 20:09:00 Anton CHEM PANEL 2019-08-15 27 Memorial 20:09:00 Anton CHEM PANEL 2019-08-15 0.95 Memorial 20:09:00 Anton CHEM PANEL 2019-08-15 60 Memorial 20:09:00 [place] CHEM PANEL 2019-08-15 70 Memorial 20:09:00 Anton CHEM PANEL 2019-08-15 28 Memorial 20:09:00 Anton TISSUE EXAM 2018-01-12 Surgical Pathology 13:10:00 Report Case: [id number] Authorizing Provider: Cornelio Ortiz MD Collected: 01/09/2018 1704 Ordering Location: [facility] Received: 01/10/2018 0831 SERVICES Pathologist: Avery Leal MD Specimen: Large Intestine, Colon - Rectosigmoid, rectosigmoid and donuts A. RECTUM AND SIGMOID COLON, LAPAROSCOPIC LOW ANTERIOR RESECTION: COLON WITH DIVERTICULAR DISEASE.NEGATIVE FOR DYSPLASIA OR INVASIVE CARCINOMA.SURGICAL MARGINS VIABLE. Signing Pathologist Direct Phone Line: [phone] nically signed by Avery Leal MD on 01/12/2018 at 1:10 [id number] is of colon Rectosigmoid colon and donutsReceived fresh [...] code: A1-A2, parallel resection margins; A3-A9, customer operations representative sections of mucosal outpouchings; A10, customer operations representative sections of intestinal rings. DB/plPerformed. BASIC METABOLIC PANEL 2018-01-11 06:17:00 Test Item Value Reference Range Interpretation Comme nts SODIUM (BEAKER) (test code 138 meq/L 136-145 = 381) POTASSIUM (BEAKER) (test 3.8 meq/L 3.5-5.1 code = 379) CHLORIDE (BEAKER) (test 111 meq/L 98-107 H code = 382) CO2 (BEAKER) (test code = 18 meq/L 22-29 L 355) BLOOD UREA NITROGEN 13 mg/dL 7-21 (BEAKER) (test code = 354) CREATININE (BEAKER) (test 0.67 mg/dL 0.57-1.25 code = 358) GLUCOSE RANDOM (BEAKER) 88 mg/dL 70-105 (test code = 652) CALCIUM (BEAKER) (test code 8.9 mg/dL 8.4-10.2 = 697) EGFR (BEAKER) (test code = 87 mL/min/1.73 sq m ESTIMATED GFR IS NOT 1092) ACCURATE CRE ATININE CLEARANCE IN AR EDICTING GLOMERULAR FILT RATION RATE. ESTIMATED GFR IS NOT APPLICABLE FOR DIALYSIS PATIENTS. CBC (HEMOGRAM ONLY)2018-01-11 05:46:00 Test Item Value Reference Range Interpretation Comments WHITE BLOOD CELL COUNT (BEAKER) 11.1 K/ L 3.5-10.5 H (test code = 775) RED BLOOD CELL COUNT (BEAKER) 3.60 M/ L 3.93-5.22 L (test code = 761) HEMOGLOBIN (BEAKER) (test code = 9.5 GM/DL 11.2-15.7 L 410) HEMATOCRIT (BEAKER) (test code = 31.1 % 34.1-44.9 L 411) MEAN CORPUSCULAR VOLUME (BEAKER) 86.4 fL 79.4-94.8 (test code = 753) MEAN CORPUSCULAR HEMOGLOBIN 26.4 pg 25.6-32.2 (BEAKER) (test code = 751) MEAN CORPUSCULAR HEMOGLOBIN CONC 30.5 GM/DL 32.2-35.5 L (BEAKER) (test code = 752) RED CELL DISTRIBUTION WIDTH 15.5 % 11.7-14.4 H (BEAKER) (test code = 412) PLATELET COUNT (BEAKER) (test 289 K/CU MM 150-450 code = 756) MEAN PLATELET VOLUME (BEAKER) 10.8 fL 9.4-12.3 (test code = 754) NUCLEATED RED BLOOD CELLS 0 /100 WBC 0-0 (BEAKER) (test code = 413) BASIC METABOLIC [id number] 05:44:00 Test Item Value Reference Range Interpretation Comments SODIUM (BEAKER) 139 meq/L 136-145 (test code = 381) POTASSIUM (BEAKER) 3.9 meq/L 3.5-5.1 (test code = 379) CHLORIDE (BEAKER) 113 meq/L 98-107 H (test code = 382) CO2 (BEAKER) (test 18 meq/L 22-29 L code = 355) BLOOD UREA NITROGEN 19 mg/dL 7-21 (BEAKER) (test code = 354) CREATININE (BEAKER) 0.76 mg/dL 0.57-1.25 (test code = 358) GLUCOSE RANDOM 128 mg/dL 70-105 H (BEAKER) (test code = 652) CALCIUM (BEAKER) 8.0 mg/dL 8.4-10.2 L (test code = 697) EGFR (BEAKER) (test 75 mL/min/1.73 ESTIMA LYNDSAY GFR IS code = 1092) sq m NOT ACCURATE CREATININE CLEARANCE IN PREDICTING GLOMERULAR FILTRATION RATE . ESTIMATED GFR I S NOT APPLICABLE FOR DIALYSIS PATIEN TS. CBC (HEMOGRAM ONLY)2018-01-10 05:33:00 Test Item Value Reference Range Interpretation Comments WHITE BLOOD CELL COUNT (BEAKER) 12.5 K/ L 3.5-10.5 H (test code = 775) RED BLOOD CELL COUNT (BEAKER) 3.65 M/ L 3.93-5.22 L (test code = 761) HEMOGLOBIN (BEAKER) (test code = 9.8 GM/DL 11.2-15.7 L 410) HEMATOCRIT (BEAKER) (test code = 31.8 % 34.1-44.9 L 411) MEAN CORPUSCULAR VOLUME (BEAKER) 87.1 fL 79.4-94.8 (test code = 753) MEAN CORPUSCULAR HEMOGLOBIN 26.8 pg 25.6-32.2 (BEAKER) (test code = 751) MEAN CORPUSCULAR HEMOGLOBIN CONC 30.8 GM/DL 32.2-35.5 L (BEAKER) (test code = 752) RED CELL DISTRIBUTION WIDTH 15.2 % 11.7-14.4 H (BEAKER) (test code = 412) PLATELET COUNT (BEAKER) (test 302 K/CU MM 150-450 code = 756) MEAN PLATELET VOLUME (BEAKER) 11.4 fL 9.4-12.3 (test code = 754) NUCLEATED RED BLOOD CELLS 0 /100 WBC 0-0 (BEAKER) (test code = 413) CBC WITH PLATELET COUNT + MANUAL [id number] 16:02:00 Test Item Value Reference Range Interpretation Comments WHITE BLOOD CELL COUNT (BEAKER) 8.5 K/ L 3.5-10.5 (test code = 775) RED BLOOD CELL COUNT (BEAKER) 4.49 M/ L 3.93-5.22 (test code = 761) HEMOGLOBIN (BEAKER) (test code = 11.8 GM/DL 11.2-15.7 410) HEMATOCRIT (BEAKER) (test code = 37.1 % 34.1-44.9 411) MEAN CORPUSCULAR VOLUME (BEAKER) 82.6 fL 79.4-94.8 (test code = 753) MEAN CORPUSCULAR HEMOGLOBIN 26.3 pg 25.6-32.2 (BEAKER) (test code = 751) MEAN CORPUSCULAR HEMOGLOBIN CONC 31.8 GM/DL 32.2-35.5 L (BEAKER) (test code = 752) RED CELL DISTRIBUTION WIDTH 14.8 % 11.7-14.4 H (BEAKER) (test code = 412) PLATELET COUNT (BEAKER) (test 347 K/CU MM 150-450 code = 756) MEAN PLATELET VOLUME (BEAKER) 10.7 fL 9.4-12.3 (test code = 754) NUCLEATED RED BLOOD CELLS 0 /100 WBC 0-0 (BEAKER) (test code = 413) NEUTROPHILS RELATIVE PERCENT 71 % (BEAKER) (test code = 429) LYMPHOCYTES RELATIVE PERCENT 18 % (BEAKER) (test code = 430) MONOCYTES RELATIVE PERCENT 9 % (BEAKER) (test code = 431) EOSINOPHILS RELATIVE PERCENT 1 % (BEAKER) (test code = 432) BASOPHILS RELATIVE PERCENT 1 % (BEAKER) (test code = 437) NEUTROPHILS ABSOLUTE COUNT 5.98 K/ L 1.56-6.13 (BEAKER) (test code = 670) LYMPHOCYTES ABSOLUTE COUNT 1.52 K/ L 1.18-3.74 (BEAKER) (test code = 414) MONOCYTES ABSOLUTE COUNT (BEAKER) 0.79 K/ L 0.24-0.36 H (test code = 415) EOSINOPHILS ABSOLUTE COUNT 0.09 K/ L 0.04-0.36 (BEAKER) (test code = 416) BASOPHILS ABSOLUTE COUNT (BEAKER) 0.05 K/ L 0.01-0.08 (test code = 417) IMMATURE GRANULOCYTES-RELATIVE 1 % 0-1 PERCENT (BEAKER) (test code = 2801) [id number] 11:33:00 Test Item Value Reference Range Interpretation Comments ALBUMIN (BEAKER) (test code = 1145) 4.2 g/dL 3.5-5.0 [id number] 13:50:00 Test Item Value Reference Range Interpretation Comments SODIUM (BEAKER) (test code = 381) 138 meq/L 136-145 POTASSIUM (BEAKER) (test code = 4.7 meq/L 3.5-5.1 379) CHLORIDE (BEAKER) (test code = 382) 109 meq/L 98-107 H CO2 (BEAKER) (test code = 355) 22 meq/L 22-29 BUN AND [id number] 13:50:00 Test Item Value Reference Range Interpretation Comments BLOOD UREA NITROGEN 20 mg/dL 7-21 (BEAKER) (test code = 354) CREATININE (BEAKER) 0.78 mg/dL 0.57-1.25 (test code = 358) EGFR (BEAKER) (test 73 mL/min/1.73 ESTIMA LYNDSAY GFR IS code = 1092) sq m NOT ACCURATE CREATININE CLEARANCE IN PREDICTING GLOMERULAR FILTRATION RATE . ESTIMATED GFR I S NOT APPLICABLE FOR DIALYSIS PATIANTIONETTE TS. [id number] 13:12:00 Test Item Value Reference Range Interpretation Comments HEMOGLOBIN (BEAKER) (test code = 11.8 GM/DL 11.2-15.7 410)
--- OUTSIDE RECORDS SUMMARY | 2020-04-17 22:04 | XMS REPORT | Summary of Care ---
:1950 Author Organization [facility] - Health Address [address] [place] [id number] Care Team Providers Name Role Phone Harry Panchal Primary Care Provider Reason for Visit Reason Comments Cough Congestion Encounter Details Date Type Department Care Team Description 04/04/2020 Laboratory Only [facility] Family Hernesto Xavier PA-C [address] [place] [id number] Exposure to Medicine - [facility], Adc Fam Pob I SARS-associated [address] [place] [address] coronaviru s ([address] Dx) [place] [address] Allergies Active Allergy Reactions Severity Noted Date Comments Ciprofloxacin Nausea and/or Vomiting 12/26/2017 Codeine Nausea Only, Extra pyramidal effects , Medium 0 10/25/2006 Itching Levofloxacin Nausea and/or Vomiting 12/26/2017 documented as of this encounter (statuses as of 04/04/2020) Medications Medication Sig Dispensed Refills Start Date End Date Status ASPIRIN 81 MG ORAL CHEW q daily 0 Active TOPROL XL 50 MG ORAL TB24 q daily 0 Active LIPITOR 80 MG ORAL TAB q daily 0 Active NORVASC 5 MG ORAL TAB q daily 0 Active CELEXA 20 MG ORAL TAB q daily 0 Active MOTRIN 800 MG ORAL TAB 4 tab daily 0 Active TRANXENE T-TAB 3.75 MG 1/2 tab daily 0 Active ORAL TAB ASPIRIN 81 MG ORAL CHEW 1 Tab Oral QAM qs 0 09/14/2006 Active WITH BREAKFAST ATORVASTATIN 80 MG ORAL 1 Tab Oral QHS qs 0 09/14/2006 Active TAB AMLODIPINE 5 MG ORAL TAB 1 Tab Oral qs 0 09/14/2006 Active DAILY METOPROLOL TARTRATE 25 MG 1 Tab Oral BID qs 0 7 Active ORAL TAB CITALOPRAM 20 MG ORAL TAB 1 Tab Oral qs 0 09/14/2006 Active DAILY CLORAZEPATE DIPOTASSIUM 0.5 Tab Oral qs 0 09/14/2006 Active 3.75 MG ORAL TAB QHS METOPROLOL TARTRATE 50 MG daily 0 Active ORAL TAB CLORAZEPATE DIPOTASSIUM prn 0 Active 3.75 MG ORAL TAB clopidogrel 75 mg tablet Take 75 mg by 0 Active mouth. cyclobenzaprine 10 mg TAKE 1 TABLET 0 01/28/2019 Active tablet BY MOUTH EVERY 8 HOURS NEEDED FOR MUSCLE SPASMS ferrous sulfate 325 mg TAKE 1 TABLET 0 03/20/2018 Active (65 mg iron) EC tablet BY MOUTH ONCE DAILY WITH BREAKFAST furosemide 40 mg tablet 0 04/24/2019 Active hydrALAZINE 50 mg tablet Take 50 mg by 0 Active mouth. hydroCHLOROthiazide 12.5 TAKE 1 TABLET 0 03/29/2019 Active mg tablet BY MOUTH ONCE DAILY IN THE MORNING FOR 30 DAYS irbesartan 300 mg tablet Take 300 mg by 0 Active mouth. levothyroxine 100 mcg Take 100 mcg by 0 Active tablet mouth. losartan 50 mg tablet TAKE 1 TABLET 2 03/06/2019 Active BY MOUTH ONCE DAILY FOR 30 DAYS meloxicam 15 mg tablet Take 15 mg by 0 03/27/2019 Active mouth daily. traMADol 50 mg tablet TAKE 1 TABLET 0 01/27/2019 Active BY MOUTH EVERY 8 HOURS NEEDED rosuvastatin 20 mg tablet Take 10 mg by 0 Active mouth. venlafaxine XR 150 mg 24 Take 150 mg by 0 Active hr capsule mouth. diclofenac 75 mg EC Take 1 tablet 60 tablet 1 04/25/2019 Active tabletIndications: Right by mouth 2 shoulder pain, (two) times unspecified chronicity daily with meals. 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 Patient e ducated on plan of care for visit, swabbing technique, risks and benefits of test and length of timeto receive results. Verbal consent obtained to perform test. CDC Fact Sheet for Patients provided topatient. All droplet and contact precautions taken with appropriate PPE worn while interacting with patient. - Goggles - N95 Mask - Gloves - Gown RR=19 % O2 Sat=97 Patient swabbed using appropriate nasopharyngeal technique, and patient tolerated well. Patient was discharged in stable condition. 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 documented in this encounter Plan of Treatment Name Type Priority Associated Diagnoses Order S kathrin COVID-19 (MOLECULAR LAB Routine Exposure to Expected : 04/04/2020, TESTING SARS-associated Expires: 021 NUCLEIC ACID coronavirus AMPLIFICATION) Health Maintenance Due Date Last Done Comments HEPATITIS C (HCV) SCREEN 1950 DTaP,Tdap,and Td Vaccines (1 - Tdap) 1967 Breast Cancer Screening (MAMMOGRAM) 1988 COLON CANCER SCREENING ANNUAL FIT/FOBT 1998 COLON CANCER SCREENING FIT DNA EVERY 3 YEARS 1998 COLON CANCER SCREENING SIGMOIDOSCOPY EVERY 5 YEARS 1998 COLONOSCOPY 1998 Colorectal Cancer Screening 1998 Zoster Recombinant Vaccine (SHINGRIX) (1 of 2) 1998 Medicare Wellness Visit 2013 Osteoporosis Screening 2013 PNEUMOCOCCAL VACCINES 65+ (1 of 1 - PPSV23) 2013 INFLUENZA VACCINE (#1) 2020 Depression Screening 04/25/2020 04/25/2019 documented as of this encounter Results Not on filedocumented in this encounter Visit Diagnoses Diagnosis Exposure to SARS-associated coronavirus - Primary documented in this encounter Additional Health Concerns Infection Onset Date Last Indicated Resolved Time COVID-19 Rule Out 04/04/2020 04/04/2020 documented as of this encounter Insurance Payer Benefit Plan / Subscriber ID Effective Phone Address T ype Group Dates [facility] [id number] 2018-Prese Medic are Adv HEALTHCARE - HEALTHCARE nt PPO MANAGED MEDICARE GOLD MEDICARE documented as of this encounter
[2020-04-17] MEDS ORDERED: FENTANYL CITR 100 MCG/2 ML ONE (23:07)
[2020-04-17] MEDS ORDERED: ONDANSETRON 4 MG/2 ML VIAL ONE (23:07)
[2020-04-17] MEDS ORDERED: NA CHLORIDE 0.9% 1,000 ML ONE (23:07)
[2020-04-17 23:13] LABS: Urine Blood NEGATIVE (NEG); Urine Glucose NEGATIVE (NEG); Urine Protein NEGATIVE (NEG); Urine Specific Gravity 1.015 (1.005-1.030)
[2020-04-17 23:27] LABS: Absolute Lymphocytes (CBC) 1.1 K/uL (0.7-4.9); Hematocrit 31.3 % (36.0-45.0); Lymphocytes % 10.2 % (15.3-44.8); RBC Red Blood Cell Count 3.99 M/uL (3.86-4.86)
[2020-04-17 23:45] LABS: Albumin 3.3 g/dL (3.4-5.0); Bilirubin Direct 0.1 mg/dL (0-0.2); Bilirubin Total 0.3 mg/dL (0.2-1.0); Potassium 3.2 mmol/L (3.5-5.1); Protein, Total 6.8 g/dL (6.4-8.2)
--- NOTE | 2020-04-18 01:03 | EDPHYS ---
Physician Documentation [facility] Name: Kali Kumar Age: 69 yrs Sex: Female : 1950 Arrival Date: 04/17/2020 Time: 22:03 Bed 19 Private MD: Harry Panchal ED Physician Lexx Stewart HPI: 04/17 22:36 This 69 yrs old Female presents to ER via Ambulatory with complaints of pm1 Abdominal Pain. 22:36 The patient presents with abdominal pain in the lower abdomen. Onset: The pm1 symptoms/episode began/occurred today. The symptoms do not radiate. Associated signs and symptoms: Pertinent positives: constipation, Pertinent negatives: nausea, vomiting, and diarrhea, chest pain, shortness of breath. The symptoms are described as crampy. Modifying factors: The symptoms are alleviated by nothing, the symptoms are aggravated by nothing. Severity of pain: in the emergency department the pain is actually worse. The patient has experienced similar episodes in the past, a few times, feels similar to presentation of diverticulitis in the past. Historical: - Allergies: 22:21 Codeine; jd3 - Home Meds: 22:21 Prozac Oral [Active]; Wellbutrin Oral [Active]; Ativan Oral as needed [Active]; aspirin jd3 81 mg Oral chew 1 tab once daily [Active]; Crestor 40 mg Oral tab nightly [Active]; hydralazine 50 mg Oral tab 1 tab three times a day [Active]; Diovan 320 mg Oral tab 1 tab once daily [Active]; Effexor Oral 150 mg nightly [Active]; metoprolol tartrate 50 mg Oral tab 1 tab 2 times per day [Active]; Norvasc 10 mg Oral tab 1 tab once daily [Active]; levothyroxine 100 mcg tab 1 tab once daily [Active]; Plavix 75 mg Oral tab 1 tab once daily [Active]; - PMHx: 22:21 Depression; Hypertension; Hypothyroidism; jd3 - PSHx: 22:21 Hysterectomy; ; Cholecystectomy; Bladder suspension; Heart stents; jd3 Thyroidectomy; Breast biopsy; diverticulitis sx; - Immunization history:: Adult Immunizations up to date, Flu vaccine is not up to date. - Social history:: Smoking status: Patient/guardian denies using tobacco, but has a distant history of tobacco abuse. ROS: 22:36 Constitutional: Negative for fever, chills, and weight loss, Cardiovascular: Negative pm1 for chest pain, palpitations, and edema, Respiratory: Negative for shortness of breath, cough, wheezing, and pleuritic chest pain. 22:36 Back: Negative for injury and pain, MS/Extremity: Negative for injury and deformity, Skin: Negative for injury, rash, and discoloration, Neuro: Negative for headache, weakness, numbness, tingling, and seizure. 22:36 Abdomen/GI: Positive for abdominal pain, constipation, of the right lower quadrant and left lower quadrant, Negative for nausea, vomiting, and diarrhea. Exam: 22:36 Constitutional: This is a well developed, well nourished patient who is awake, alert, pm1 and in no acute distress. Head/Face: Normocephalic, atraumatic. 22:36 Back: No spinal tenderness. No costovertebral tenderness. Full range of motion. Skin: Warm, dry with normal turgor. Normal color with no rashes, no lesions, and no evidence of cellulitis. MS/ Extremity: Pulses equal, no cyanosis. Neurovascular intact. Full, normal range of motion. 22:36 Cardiovascular: Exam negative for acute changes, Rate: normal, Rhythm: regular, Pulses: no pulse deficits are appreciated. 22:36 Respiratory: Exam negative for acute changes, respiratory distress, shortness of breath. 22:36 Abdomen/GI: Inspection: obese Palpation: soft, in all quadrants, mild abdominal tenderness, in the left lower quadrant. 22:36 Neuro: Exam negative for acute changes, Orientation: is normal, Mentation: is normal, Motor: is normal, moves all fours. Vital Signs: 22:21 BP 130 / 78; Pulse 64; Resp 17 S; Temp 97.2(TE); Pulse Ox 100% on R/A; Weight 84.82 kg jd3 (R); Height 4 ft. 11 in. (149.86 cm) (R); Pain 4/10; 23:20 BP 155 / 75; Pulse 62; Resp 17; Pulse Ox 98% ; rr5 04/18 00:20 BP 143 / 83; Pulse 70; Resp 17; Pulse Ox 99% ; rr5 01:21 BP 159 / 66; Pulse 69; Resp 16; Pulse Ox 99% ; rr5 04/17 22:21 Body Mass Index 37.77 (84.82 kg, 149.86 cm) jd3 MDM: 04/17 22:31 Patient medically screened. pm1 04/18 00:29 Data reviewed: vital signs. Data interpreted: Pulse oximetry: on room air is 100 %. pm1 Interpretation: normal. 00:51 Counseling: I had a detailed discussion with the patient and/or guardian regarding: the pm1 historical points, exam findings, and any diagnostic results supporting the discharge/admit diagnosis, lab results, radiology results. 01:00 Counseling: I had a detailed discussion with the patient and/or guardian regarding: the pm1 need for further work-up and treatment in the hospital, to return to the emergency department if symptoms worsen or persist or if there are any questions or concerns that arise at home. 04/17 22:32 Order name: Basic Metabolic Panel; Complete Time: 23:50 pm1 04/17 22:32 Order name: CBC with Diff; Complete Time: 23:35 pm1 04/17 22:32 Order name: Hepatic Function; Complete Time: 23:50 pm1 04/17 22:32 Order name: Lipase; Complete Time: 23:50 pm1 04/17 23:11 Order name: Urine Dipstick--Ancillary (enter results); Complete Time: 23:35 mw2 04/18 00:17 Order name: CREATININE WHOLE BLOOD; Complete Time: 00:20 EDMS 04/17 22:32 Order name: CT Abd/Pelvis - IV Contrast Only pm1 04/17 22:32 Order name: IV Saline Lock; Complete Time: 23:23 pm1 04/17 22:32 Order name: Labs collected and sent; Complete Time: 23:23 pm1 04/17 22:32 Order name: Urine Dipstick-Ancillary (obtain specimen); Complete Time: 23:29 pm1 Administered Medications: 04/17 23:20 Drug: NS 0.9% 1000 ml Route: IV; Rate: 1000 ml; Site: right antecubital; rr5 04/18 01:00 Follow up: Response: No adverse reaction rr5 04/17 23:20 Drug: Zofran (Ondansetron) 4 mg Route: IVP; Site: right antecubital; rr5 04/18 00:20 Follow up: Response: No adverse reaction rr5 04/17 23:22 Drug: fentaNYL (PF) 25 mcg {Note: rass 0.} Route: IVP; Site: right antecubital; rr5 04/18 00:20 Follow up: Response: No adverse reaction; Pain is decreased; RASS: Alert and Calm (0) rr5 01:15 Drug: Cipro 500 mg Route: PO; rr5 01:50 Follow up: Response: No adverse reaction rr5 01:16 Drug: Flagyl 500 mg Volume: 100 ml; Route: IVPB; Rate: 200 ml/hr; Infused Over: 30 rr5 mins; Site: right antecubital; 01:55 Follow up: Response: No adverse reaction; IV Status: Completed infusion; IV Intake: rr5 100ml 01:20 Drug: morphine 4 mg {Note: rass 0.} Route: IVP; Site: right antecubital; rr5 01:55 Follow up: Response: No adverse reaction; Pain is decreased; RASS: Alert and Calm (0) rr5 01:24 Drug: Potassium Effervescent Tablet 50 mEq Route: PO; rr5 01:55 Follow up: Response: No adverse reaction rr5 Disposition: 04:42 Co-signature as Attending Physician, Lexx Stewart MD. mh7 Disposition: 04/18/20 01:02 Discharged to Home. Impression: Diverticulitis of large intestine without perforation or abscess without bleeding. - Condition is Stable. - Discharge Instructions: Clear Liquid Diet, Adult, Diverticulitis. - Prescriptions for Flagyl 500 mg Oral Tablet - take 1 tablet by ORAL route every 6 hours for 10 days; 40 tablet. Zofran 4 mg Oral Tablet - take 1 tablet by ORAL route every 12 hours As needed; 20 tablet. Cipro 500 mg Oral Tablet - take 1 tablet by ORAL route every 12 hours for 7 days; 14 tablet. Tramadol 50 mg Oral Tablet - take 1 tablet by ORAL route every 8 hours As needed as needed; 12 tablet. - Medication Reconciliation Form, Thank You Letter, Antibiotic Education, Prescription Opioid Use form. - Follow up: Emergency Department; When: As needed; Reason: Worsening of condition. Follow up: Private Physician; When: 2 - 3 days; Reason: Recheck today's complaints, Continuance of care, Re-evaluation by your physician. - Problem is new. - Symptoms have improved. Signatures: Dispatcher [employer] EDMS Alex Robison NP VARNISH MIXER pm1 Gabriel Tobar RN RN jd3 Naveen Monteiro RN RN rr5 Lexx Stewart MD MD mh7 Corrections: (The following items were deleted from the chart) 01:58 01:02 04/18/2020 01:02 Discharged to Home. Impression: Diverticulitis of large rr5 intestine without perforation or abscess without bleeding. Condition is Stable. Forms are Medication Reconciliation Form, Thank You Letter, Antibiotic Education, Prescription Opioid Use. Follow up: Emergency Department; When: As needed; Reason: Worsening of condition. Follow up: Private Physician; When: 2 - 3 days; Reason: Recheck today's complaints, Continuance of care, Re-evaluation by your physician. Problem is new. Symptoms have improved. pm1
--- NOTE | 2020-04-18 01:03 | ER ---
Nurse's Notes [facility] Name: Kali Kumar Age: 69 yrs Sex: Female : 1950 Arrival Date: 04/17/2020 Time: 22:03 Bed 19 Private MD: Harry Panchal Diagnosis: Diverticulitis of large intestine without perforation or abscess without bleeding Presentation: 04/17 22:16 Chief complaint: Patient states: "I have been having lower stomach pain across my lower jd3 stomach all day with some constipation.". Coronavirus screen: At this time, the client does not indicate any symptoms associated with coronavirus-19. Ebola Screen: Patient negative for fever greater than or equal to 101.5 degrees Fahrenheit, and additional compatible Ebola Virus Disease symptoms. Initial Sepsis Screen: Does the patient meet any 2 criteria? No. Patient's initial sepsis screen is negative. Does the patient have a suspected source of infection? No. Patient's initial sepsis screen is negative. Risk Assessment: Do you want to hurt yourself or someone else? Patient reports no desire to harm self or others. Onset of symptoms was April 17, 2020. 22:16 Method Of Arrival: Ambulatory jd3 22:16 Acuity: ISAIAS 3 jd3 Triage Assessment: 22:30 General: Appears in no apparent distress. Behavior is calm, cooperative. rr5 Historical: - Allergies: 22:21 Codeine; jd3 - Home Meds: 22:21 Prozac Oral [Active]; Wellbutrin Oral [Active]; Ativan Oral as needed [Active]; aspirin jd3 81 mg Oral chew 1 tab once daily [Active]; Crestor 40 mg Oral tab nightly [Active]; hydralazine 50 mg Oral tab 1 tab three times a day [Active]; Diovan 320 mg Oral tab 1 tab once daily [Active]; Effexor Oral 150 mg nightly [Active]; metoprolol tartrate 50 mg Oral tab 1 tab 2 times per day [Active]; Norvasc 10 mg Oral tab 1 tab once daily [Active]; levothyroxine 100 mcg tab 1 tab once daily [Active]; Plavix 75 mg Oral tab 1 tab once daily [Active]; - PMHx: 22:21 Depression; Hypertension; Hypothyroidism; jd3 - PSHx: 22:21 Hysterectomy; ; Cholecystectomy; Bladder suspension; Heart stents; jd3 Thyroidectomy; Breast biopsy; diverticulitis sx; - Immunization history:: Adult Immunizations up to date, Flu vaccine is not up to date. - Social history:: Smoking status: Patient/guardian denies using tobacco, but has a distant history of tobacco abuse. Screenin:24 Abuse screen: Denies threats or abuse. Denies injuries from another. Nutritional rr5 screening: No deficits noted. Tuberculosis screening: No symptoms or risk factors identified. Fall Risk IV access (20 points). Total Schulz Fall Scale indicates No Risk (0-24 pts). Assessment: 22:30 General: Appears in no apparent distress. uncomfortable, Behavior is calm, cooperative, rr5 appropriate for age. 22:30 Pain: Complains of pain in abdomen and left lower quadrant and right lower quadrant rr5 Pain currently is 4 out of 10 on a pain scale. Quality of pain is described as aching, Pain began gradually, Is intermittent. Neuro: Level of Consciousness is awake, alert, obeys commands, Oriented to person, place, time. Cardiovascular: Capillary refill < 3 seconds Patient's skin is warm and dry. Respiratory: Airway is patent Respiratory effort is even, unlabored, Respiratory pattern is regular, symmetrical. GI: Abdomen is round non-distended, Abd is soft and non tender Reports lower abdominal pain, upper abdominal pain. : No signs and/or symptoms were reported regarding the genitourinary system. EENT: Derm: Skin is intact, is healthy with good turgor, Skin temperature is warm. Musculoskeletal: Circulation, motion, and sensation intact. Capillary refill < 3 seconds. 23:30 Reassessment: Patient appears in no apparent distress at this time. Patient is alert, rr5 oriented x 3, equal unlabored respirations, skin warm/dry/pink. awaiting for results. 04/18 00:15 Reassessment: Patient appears in no apparent distress at this time. Patient and/or rr5 family updated on plan of care and expected duration. Pain level reassessed. Patient is alert, oriented x 3, equal unlabored respirations, skin warm/dry/pink. Patient states symptoms have improved. 01:00 Reassessment: Patient appears in no apparent distress at this time. Patient is alert, rr5 oriented x 3, equal unlabored respirations, skin warm/dry/pink. Ed provider reassess the patient, for discharge after IV infusion. 01:55 Reassessment: Patient appears in no apparent distress at this time. Patient is alert, rr5 oriented x 3, equal unlabored respirations, skin warm/dry/pink. discharge instruction given and explained without complaints made Patient states feeling better. Patient states symptoms have improved. Vital Signs: 04/17 22:21 BP 130 / 78; Pulse 64; Resp 17 S; Temp 97.2(TE); Pulse Ox 100% on R/A; Weight 84.82 kg jd3 (R); Height 4 ft. 11 in. (149.86 cm) (R); Pain 4/10; 23:20 BP 155 / 75; Pulse 62; Resp 17; Pulse Ox 98% ; rr5 04/18 00:20 BP 143 / 83; Pulse 70; Resp 17; Pulse Ox 99% ; rr5 01:21 BP 159 / 66; Pulse 69; Resp 16; Pulse Ox 99% ; rr5 04/17 22:21 Body Mass Index 37.77 (84.82 kg, 149.86 cm) jd3 ED Course: 04/17 22:03 Patient arrived in ED. mr 22:04 Harry Panchal DO is Private Physician. mr 22:17 Triage completed. jd3 22:23 Arm band placed on. jd3 22:31 Alex Robison NP is PHCP. pm1 22:31 Lexx Stewart MD is Attending Physician. pm1 22:44 Naveen Monteiro RN is Primary Nurse. rr5 23:10 Urine collected: clean catch specimen, clear. rr5 23:20 Inserted saline lock: 20 gauge in right antecubital area, using aseptic technique. rr5 Blood collected. 23:23 Patient has correct armband on for positive identification. Placed in gown. Bed in low rr5 position. Call light in reach. property assessment monitor on. Pulse ox on. NIBP on. 04/18 00:09 CT Abd/Pelvis - IV Contrast Only In Process Unspecified. EDMS 01:40 No provider procedures requiring assistance completed. IV discontinued, intact, rr5 bleeding controlled, No redness/swelling at site. Pressure dressing applied. Administered Medications: 04/17 23:20 Drug: NS 0.9% 1000 ml Route: IV; Rate: 1000 ml; Site: right antecubital; rr5 04/18 01:00 Follow up: Response: No adverse reaction rr5 04/17 23:20 Drug: Zofran (Ondansetron) 4 mg Route: IVP; Site: right antecubital; rr5 04/18 00:20 Follow up: Response: No adverse reaction rr5 04/17 23:22 Drug: fentaNYL (PF) 25 mcg {Note: rass 0.} Route: IVP; Site: right antecubital; rr5 04/18 00:20 Follow up: Response: No adverse reaction; Pain is decreased; RASS: Alert and Calm (0) rr5 01:15 Drug: Cipro 500 mg Route: PO; rr5 01:50 Follow up: Response: No adverse reaction rr5 01:16 Drug: Flagyl 500 mg Volume: 100 ml; Route: IVPB; Rate: 200 ml/hr; Infused Over: 30 rr5 mins; Site: right antecubital; 01:55 Follow up: Response: No adverse reaction; IV Status: Completed infusion; IV Intake: rr5 100ml 01:20 Drug: morphine 4 mg {Note: rass 0.} Route: IVP; Site: right antecubital; rr5 01:55 Follow up: Response: No adverse reaction; Pain is decreased; RASS: Alert and Calm (0) rr5 01:24 Drug: Potassium Effervescent Tablet 50 mEq Route: PO; rr5 01:55 Follow up: Response: No adverse reaction rr5 Intake: 01:55 IV: 100ml; Total: 100ml. rr5 Outcome: 01:02 Discharge ordered by MD. pm1 01:55 Discharged to home ambulatory. rr5 01:55 Condition: stable 01:55 Discharge instructions given to patient, Instructed on discharge instructions, follow up and referral plans. medication usage, Demonstrated understanding of instructions, follow-up care, medications, Prescriptions given X 4. 01:58 Patient left the ED. rr5 Signatures: Dispatcher [employer] EDMA DaLori RickiAlex, RAISE DRILL OPERATOR RAISE DRILL OPERATOR pm1 Gabriel Tobar, BALJEET RN Naveen Padron RN RN rr5 Corrections: (The following items were deleted from the chart) 04/17 22:23 22:21 Pulse 64bpm; Resp 17bpm; Spontaneous; Pulse Ox 100% RA; Temp 97.2F Temporal; jd3 84.82 kg Reported; Height 4 ft. 11 in. Reported; BMI: 37.7; Pain 08/30; jd3 04/18 02:11 04/17 22:30 Pain: Complains of pain in abdomen and left lower quadrant and right lower rr5 quadrant Pain currently is 7 out of 10 on a pain scale. Quality of pain is described as aching, Pain began gradually, Is intermittent, rr5
[2020-04-18] MEDS ORDERED: POTASSIUM 25 MEQ EFFERV TAB ONE (01:26)
[2020-04-18] MEDS ORDERED: CIPROFLOXACIN HCL 500 MG TAB ONE (01:26)
[2020-04-18] MEDS ORDERED: MORPHINE 4 MG/ML SYR ONE (01:26)
[2020-04-18] MEDS ORDERED: METRONIDAZOLE 500mg IVPB 500 MG/100 ML BAG IV ONE (01:27)
[2020-04-18 05:49] VITALS: TEMP 97.2
[2020-04-18 05:52] VITALS: O2SAT 99
[2020-04-18 05:54] VITALS: BP 159/66
--- NOTE | 2020-04-18 18:39 | RAD REPORT ---
EXAM DESCRIPTION: CT - Abdomen Pelvis W Contrast - 04/18/2020 6:26 am CLINICAL HISTORY: Abdominal pain. COMPARISON: CT abdomen and pelvis with contrast 12/19/2017. TECHNIQUE: Axial CT imaging of the abdomen and pelvis performed with intravenous contrast. Reformatt ed coronal and sagittal images reviewed. A dose reduction technique was utilized with automated exposure control according to patient size. FINDINGS: Bases. Heart is normal in size. There are mild mitral annular calcifications. Normal liver size and attenuation. There is subtle hepatic nodularity due to slight cirrhotic robbins e. There is no mass or biliary dilatation. Gallbladder has been resected. The common bile duct is dilated to 1.1 cm due to post cholecystectomy status. Normal spleen and pancreas. Normal adrenal glands. There is mild fullness of the right and left renal pelvis with no obstructin g stone or mass. The kidneys demonstrate normal enhancement. There is extensive atherosclerosis w ithin the abdominal aorta and iliac arteries. There is near complete occlusion of the origin of the right common iliac artery. There is a distal aorta and left proximal iliac stent. No retroperito joshua adenopathy. Significant atherosclerosis at the origin of the superior mesenteric artery. Nor mal caliber inferior vena cava. Small hiatal hernia. Normal remaining stomach. Small bowel loops appear normal. Appendix is non visualized. There is a short segment of circumferential thickening of the mid sigmoid with associat ed diverticulosis. There is adjacent perisigmoid edema. Anastomotic sutures are present at the re ctosigmoid junction. Mild diverticulosis of the distal descending colon. There is no free air. No mesenteric adenopathy. There is a 1.2 cm round solid nodule anterior to the mid descending colon which may represent an accessory splenule. Unremarkable bladder. Uterus has been resected. No pelvic adenopathy. There is normal lumbar lordosis. Mild lower thoracic and moderate lumbar spondylosis. Bony pelvis and hips are unremarkable. Subcutaneous tissues are normal. IMPRESSION: 1. Mild descending and sigmoid colon diverticulosis with acute sigmoid diverticulitis. No perforation or abscess. 2. Slight hepatic cirrhosis without liver mass. 3. Mild postcholecystectomy biliary dilatation. 4. Small hiatal hernia. 5. Mild fullness of the right and left renal pelvis with no obstructing etiology. 6. Extensive vascular disease. 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 The interpreting radiologist is fully responsible for the content of the report.
== END 2020-04-18 01:58 | disposition home or self-care (01) ==
LOC: ER 21:59
DX: K57.32 Diverticulitis of large intestine without perforation or abscess without bleeding (principal); I10 Essential (primary) hypertension; E03.9 Hypothyroidism, unspecified; F32.9 Major depressive disorder, single episode, unspecified; Z95.818 Presence of other cardiac implants and grafts; Z79.01 Long term (current) use of anticoagulants; Z79.82 Long term (current) use of aspirin; Z88.5 Allergy status to narcotic agent
CPT/HCPCS: 96365; 85025; 80048; 36415; 82565; 80076; 81003; 83690; 74177; 96375; 99284; Q9967; J3010; J7030; J2405

== ENCOUNTER 2021-03-03 07:24 | Emergency (ER) | payer OTHER ==
[2021-03-03 08:01] LABS: Absolute Lymphocytes (CBC) 1.3 K/uL (0.7-4.9); Basophils % 0.6 % (0-1.3); Lymphocytes % 15.3 % (15.3-44.8); RBC Red Blood Cell Count 5.32 M/uL (3.86-4.86)
[2021-03-03 08:05] LABS: Protime INR 1.2
[2021-03-03] MEDS ORDERED: cloNIDine HCL 0.1 MG TAB ONE ×2 (08:23→10:07)
[2021-03-03 08:24] LABS: ALT/SGPT 23 U/L (12-78); AST/SGOT 18 U/L (15-37); Alkaline Phosphatase 81 U/L (45-117); BUN Blood Urea Nitrogen 21 mg/dL (7-18); Bicarbonate 23 mmol/L (21-32); Bilirubin Direct 0.1 mg/dL (0-0.2); Bilirubin Total 0.4 mg/dL (0.2-1.0); Glucose Level 141 mg/dL (74-106); Magnesium 2.1 mg/dL (1.8-2.4); NT PRO-BNP 1271 pg/mL (<125); Potassium 3.6 mmol/L (3.5-5.1); Sodium Level 139 mmol/L (136-145); Troponin (Emerg Dept Use Only) < 0.02 ng/mL (0.0-0.045)
--- NOTE | 2021-03-03 08:42 | RAD REPORT ---
EXAM DESCRIPTION: CT - Head Brain Wo Cont - 03/03/2021 8:22 am CLINICAL HISTORY: DIZZINESS Headache, drowsiness COMPARISON: No comparisons TECHNIQUE: All CT scans are performed using dose optimization technique as appropriate and may inclu de automated exposure control or mA/KV adjustment according to patient size. FINDINGS: No intracranial hemorrhage, hydrocephalus or extra-axial fluid collection.Mild brain atrop hy.No areas of brain edema or evidence of midline shift. The paranasal sinuses and mastoids are clear. The calvarium is intact. IMPRESSION: No acute intracranial abnormality.
--- NOTE | 2021-03-03 09:07 | RAD REPORT ---
EXAM DESCRIPTION: MRI - Brain W/Wo Cont - 03/03/2021 8:51 am CLINICAL HISTORY: Dizziness;Headache Headache, drowsiness, CVA symptomology COMPARISON: Head Brain Wo Cont dated 03/03/2021 TECHNIQUE: Multi-sequence, multiplanar MR imaging of the brain was performed with contrast. FINDINGS: No intracranial hemorrhage, hydrocephalus, or extra-axial fluid collection. No edema or sh ift of midline structures. No intracranial mass. DWI is negative for acute CVA. The midline structures are normally formed. Mastoid air cells and paranasal sinuses are clear. Post-contrast images show no abnormal enhancement to suggest tumor or infection. Developmental venous anomaly is seen adjacent to the inferior aspect of the right posterolateral ventricle. IMPRESSION: Negative for acute CVA or other acute intracranial abnormality.
--- NOTE | 2021-03-03 09:46 | RAD REPORT ---
EXAM DESCRIPTION: RAD - Chest Single View - 03/03/2021 8:02 am CLINICAL HISTORY: Dizziness Chest pain. COMPARISON: Chest Pa And Lat (2 Views) dated 07/20/2019; Chest Single View dated 11/04/2017; CHEST SIN GLE VIEW dated 08/14/2014; CHEST PA AND LAT 2 VIEW dated 05/13/2009 FINDINGS: Portable technique limits examination quality. The lungs are grossly clear. The heart is normal in size. No displaced fractures. IMPRESSION: No acute intrathoracic process suspected.
[2021-03-03] MEDS ORDERED: IBUPROFEN 400 MG TAB ONE (10:08)
[2021-03-03] MEDS ORDERED: TETRACAINE HCL 0.5% 4ML OPTH ONE (10:48)
--- NOTE | 2021-03-03 10:56 | ER ---
Nurse's Notes [facility] Name: Kali Kumar Age: 70 yrs Sex: Female : 1950 Arrival Date: 03/03/2021 Time: 07:24 Bed 27 Private MD: David Richardson Diagnosis: Headache;Dizziness and giddiness;Ocular pain, right eye Presentation: 03/03 07:30 Chief complaint: Patient states: Dizziness, and seeing spots when i close by eyes. per oh pt this all started when she started her new med Nifedipine 30 mg on tuesday. Coronavirus screen: Vaccine status: Patient reports receiving the 2nd dose of the covid vaccine. Ebola Screen: No symptoms or risks identified at this time. Initial Sepsis Screen: Does the patient meet any 2 criteria? No. Patient's initial sepsis screen is negative. Does the patient have a suspected source of infection? No. Patient's initial sepsis screen is negative. Risk Assessment: Do you want to hurt yourself or someone else? Patient reports no desire to harm self or others. Onset of symptoms was February 27, 2021. 07:30 Method Of Arrival: EMS: [facility] oh 07:30 Acuity: ISAIAS 2 oh Triage Assessment: 07:37 Neuro: Reports dizziness, seeing spots. Cardiovascular: Reports. Cardiovascular: oh Reports high bp. 07:38 General: Appears uncomfortable, Behavior is cooperative, appropriate for age. oh 07:38 Pain: Complains of pain in headache. oh Historical: - Allergies: 07:35 Codeine; oh - PMHx: 07:35 Hyperlipidemia; Depression; Hypertension; Hypothyroidism; oh - Immunization history:: Adult Immunizations. - Social history:: Smoking status: Patient/guardian denies using tobacco, the patient reports quitting approximately 40 years ago. Screenin:39 Abuse screen: Denies threats or abuse. Nutritional screening: No deficits noted. oh Tuberculosis screening: No symptoms or risk factors identified. Fall Risk Gait- Weak (10 pts.). Assessment: 07:38 Neuro: Reports dizziness, seeing spot when she close her eyes, after starting new oh medication on tuesday. Vital Signs: 07:30 BP 219 / 60; Pulse 54; Resp 21; Temp 98.8(O); Pulse Ox 100% on R/A; Weight 77.11 kg; oh Height 4 ft. 11 in. (149.86 cm); 09:07 BP 179 / 44; Pulse 55; Resp 19; Pulse Ox 99% on R/A; oh 10:39 BP 160 / 52; Pulse 52; Resp 20; Pulse Ox 98% on R/A; oh 07:30 Body Mass Index 34.34 (77.11 kg, 149.86 cm) oh ED Course: 07:24 Patient arrived in ED. am2 07:25 David Richardson DO is Private Physician. am2 07:30 Miladis Johnson, BALJEET is Primary Nurse. oh 07:33 Eddie Benavides MD is Attending Physician. kdr 07:35 Triage completed. oh 07:38 Arm band placed on left wrist. oh 07:38 EKG completed in triage. Results shown to MD. oh 07:39 Maintain EMS IV. Gauge \T\ site: 22G right wrist. oh 07:41 Bed in low position. Call light in reach. Side rails up X2. oh 08:02 XRAY Chest (1 view) In Process Unspecified. EDMS 08:02 Inserted saline lock: 20 gauge in right antecubital area, using aseptic technique. oh Blood collected. 08:11 Patient moved to MRI. oh 08:21 CT Head Brain wo Cont In Process Unspecified. EDMS 08:48 MRI - Brain W/Wo Cont In Process Unspecified. EDMS 10:54 David Richardson DO is Referral Physician. kdr 11:37 IV discontinued, bleeding controlled, Pressure dressing applied. oh 11:38 Assist provider with eye exam. oh Administered Medications: 08:01 Drug: cloNIDine 0.2 mg Route: PO; oh 09:13 Drug: Tylenol 650 mg Route: PO; oh 09:40 Drug: cloNIDine 0.2 mg Route: PO; oh 09:40 Drug: Ibuprofen 800 mg Route: PO; oh 10:42 Drug: Tetracaine Drops 0.5 % 1 drops Route: Ophthalmic; Site: both eyes; oh 10:42 Drug: Fluorescein Strip 1 strip Route: Ophthalmic; Site: both eyes; oh Outcome: 10:56 Discharge ordered by MD. kdr 11:37 Discharged to home oh 11:37 Condition: stable 11:37 Discharge instructions given to patient, family, pt grandson 11:38 Patient left the ED. oh Signatures: Dispatcher [employer] EDMS Eddie Benavides MD MD kdr Nga Orr am2 Miladis Johnson, RN RN oh
[2021-03-03] MEDS ORDERED: FLUORESCEIN SODIUM 1 MG/WRAP ONE (10:57)
--- NOTE | 2021-03-03 10:57 | EDPHYS ---
Physician Documentation [facility] Name: Kali Kumar Age: 70 yrs Sex: Female : 1950 Arrival Date: 03/03/2021 Time: 07:24 Bed 27 Private MD: Dylan [facility] ED Physician Eddie Benavides HPI: 03/03 08:31 This 70 yrs old Female presents to ER via EMS with complaints of Dizziness. kdr 08:31 The patient presents with dizziness, generalized weakness, feeling off balance. Onset: kdr The symptoms/episode began/occurred States that she has been having intermittent dizziness for the past year. She is concerned that she was started on some recent antihypertensive medications and that these may be contributing to her dizziness. Patient also states that she has a frontal headache. This has been ongoing since Tuesday. Her symptoms are similar but worse today. She indicated that she was started on some new antihypertensive medications last week and is concerned that these may be contributing to her dizziness. Context: occurred at home, occurred while the patient was at rest, just prior to the episode the patient experienced no apparent symptoms. Modifying factors: The symptoms are alleviated by nothing, the symptoms are aggravated by nothing. Associated signs and symptoms: Pertinent positives: blurred vision, confusion, headache, nausea, Pertinent negatives: abdominal pain, agitation, ataxia, chest pain, near-syncope, numbness, palpitations, , seizure, shortness of breath, syncope, tingling, vomiting. Severity of symptoms: At their worst the symptoms were moderate in the emergency department the symptoms are unchanged. The patient has experienced similar episodes in the past, As mentioned above, this is been ongoing but intermittent for the past year. The patient has been recently seen by a physician: Patient was started on several antihypertensive medications last week. Historical: - Allergies: 07:35 Codeine; oh - PMHx: 07:35 Hyperlipidemia; Depression; Hypertension; Hypothyroidism; oh - Immunization history:: Adult Immunizations. - Social history:: Smoking status: Patient/guardian denies using tobacco, the patient reports quitting approximately 40 years ago. ROS: 08:31 Constitutional: Negative for fever, chills, and weight loss, Eyes: Negative for injury, kdr pain, redness, and discharge, ENT: Negative for injury, pain, and discharge, Neck: Negative for injury, pain, and swelling, Cardiovascular: Negative for chest pain, palpitations, and edema, Respiratory: Negative for shortness of breath, cough, wheezing, and pleuritic chest pain, Abdomen/GI: Negative for abdominal pain, nausea, vomiting, diarrhea, and constipation, Back: Negative for injury and pain, : Negative for injury, bleeding, discharge, and swelling, MS/Extremity: Negative for injury and deformity, Skin: Negative for injury, rash, and discoloration, Psych: Negative for depression, anxiety, suicide ideation, homicidal ideation, and hallucinations, Allergy/Immunology: Negative for hives, rash, and allergies, Endocrine: Negative for neck swelling, polydipsia, polyuria, polyphagia, and marked weight changes, Hematologic/Lymphatic: Negative for swollen nodes, abnormal bleeding, and unusual bruising. 08:31 Neuro: Positive for dizziness, headache, visual changes, weakness. Exam: 07:37 ECG was reviewed by the Attending Physician. kdr 08:31 Constitutional: This is a well developed, well nourished patient who is awake, alert, kdr and in no acute distress. Head/Face: Normocephalic, atraumatic. Eyes: Pupils equal round and reactive to light, extra-ocular motions intact. Lids and lashes normal. Conjunctiva and sclera are non-icteric and not injected. Cornea within normal limits. Periorbital areas with no swelling, redness, or edema. Neck: Trachea midline, no thyromegaly or masses palpated, and no cervical lymphadenopathy. Supple, full range of motion without nuchal rigidity, or vertebral point tenderness. No Meningismus. Chest/axilla: Normal chest wall appearance and motion. Nontender with no deformity. No lesions are appreciated. Cardiovascular: Regular rate and rhythm with a normal S1 and S2. No gallops, murmurs, or rubs. Normal PMI, no JVD. No pulse deficits. Respiratory: Lungs have equal breath sounds bilaterally, clear to auscultation and percussion. No rales, rhonchi or wheezes noted. No increased work of breathing, no retractions or nasal flaring. Abdomen/GI: Soft, non-tender, with normal bowel sounds. No distension or tympany. No guarding or rebound. No evidence of tenderness throughout. Back: No spinal tenderness. No costovertebral tenderness. Full range of motion. Skin: Warm, dry with normal turgor. Normal color with no rashes, no lesions, and no evidence of cellulitis. MS/ Extremity: Pulses equal, no cyanosis. Neurovascular intact. Full, normal range of motion. Neuro: Awake and alert, GCS 15, oriented to person, place, time, and situation. Cranial nerves II-XII grossly intact. Motor strength 5/5 in all extremities. Sensory grossly intact. Cerebellar exam normal. Normal gait. Psych: Awake, alert, with orientation to person, place and time. Behavior, mood, and affect are within normal limits. Vital Signs: 07:30 BP 219 / 60; Pulse 54; Resp 21; Temp 98.8(O); Pulse Ox 100% on R/A; Weight 77.11 kg; oh Height 4 ft. 11 in. (149.86 cm); 09:07 BP 179 / 44; Pulse 55; Resp 19; Pulse Ox 99% on R/A; oh 10:39 BP 160 / 52; Pulse 52; Resp 20; Pulse Ox 98% on R/A; oh 07:30 Body Mass Index 34.34 (77.11 kg, 149.86 cm) oh MDM: 08:31 Data reviewed: vital signs, nurses notes, lab test result(s), radiologic studies. kdr Counseling: I had a detailed discussion with the patient and/or guardian regarding: the historical points, exam findings, and any diagnostic results supporting the discharge/admit diagnosis, lab results, radiology results. 10:56 Patient medically screened. kdr 03/03 07:35 Order name: Basic Metabolic Panel; Complete Time: 09:28 kdr 03/03 07:35 Order name: CBC with Diff; Complete Time: 09: kdr 03/03 07:35 Order name: LFT's; Complete Time: 09: kdr 03/03 07:35 Order name: Magnesium; Complete Time: 09: kdr 03/03 07:35 Order name: NT PRO-BNP; Complete Time: 09: kdr 03/03 07:35 Order name: PT-INR; Complete Time: 09: kdr 03/03 07:35 Order name: Troponin (emerg Dept Use Only); Complete Time: 09:28 kdr 03/03 07:35 Order name: XRAY Chest (1 view); Complete Time: 10:19 kdr 03/03 07:49 Order name: CT Head Brain wo Cont; Complete Time: 09:28 kdr 03/03 07:49 Order name: MRI - Brain W/Wo Cont; Complete Time: 09:28 kdr 03/03 07:35 Order name: EKG; Complete Time: 07:36 kdr 03/03 07:35 Order name: Cardiac monitoring; Complete Time: 07:47 kdr 03/03 07:35 Order name: EKG - Nurse/Tech; Complete Time: 07:47 kdr 03/03 07:35 Order name: IV Saline Lock; Complete Time: 07:57 kdr 03/03 07:35 Order name: Labs collected and sent; Complete Time: 07:57 kdr 03/03 07:35 Order name: O2 Per Protocol; Complete Time: 07:57 kdr 03/03 07:35 Order name: O2 Sat Monitoring; Complete Time: 07:57 kdr 03/03 11:02 Order name: EKG Electrocardiogram EDMS EC:37 Rate is 52 beats/min. Rhythm is regular, Sinus bradycardia with No ectopy. QRS [place] is kdr Normal. NC interval is normal. QRS interval is normal. QT interval is normal. Clinical impression: NSR w/ Non-specific ST/T Changes and Sinus bradycardia. Administered Medications: 08:01 Drug: cloNIDine 0.2 mg Route: PO; oh 09:13 Drug: Tylenol 650 mg Route: PO; oh 09:40 Drug: cloNIDine 0.2 mg Route: PO; oh 09:40 Drug: Ibuprofen 800 mg Route: PO; oh 10:42 Drug: Tetracaine Drops 0.5 % 1 drops Route: Ophthalmic; Site: both eyes; oh 10:42 Drug: Fluorescein Strip 1 strip Route: Ophthalmic; Site: both eyes; oh Disposition Summary: 03/03/21 10:56 Discharge Ordered Location: Home kdr Problem: new kdr Symptoms: have improved kdr Condition: Stable kdr Diagnosis - Headache kdr - Dizziness and giddiness kdr - Ocular pain, right eye kdr Followup: kdr - With: David Richardson, DO - When: 2 - 3 days - Reason: If symptoms return, Further diagnostic work-up, Recheck today's complaints, Continuance of care, Re-evaluation by your physician Discharge Instructions: - Discharge Summary Sheet kdr - Bradycardia, Adult kdr - General Headache Without Cause kdr - Dizziness, [id number] kdr Forms: - Medication Reconciliation Form kdr - Thank You Letter kdr Signatures: Dispatcher [employer] EDMS Rittger, Eddie, MD MD kdr Miladis Johnson, RN RN oh
--- NOTE | 2021-03-03 10:57 | EKG ---
Test Date: 2021-03-03 Test Time: 07:28:51 Machine Rough Rounder: NICO MEASUREMENT RESULTS: Intervals: Rate: 52 NH: 154 QRSD: 74 QT: 482 QTc: 448 [place]: P: 68 NH: 154 QRS: 19 T: 192 INTERPRETIVE STATEMENTS: Sinus bradycardia Nonspecific ST and T wave abnormality Abnormal ECG Compared to ECG 08/24/2019 09:28:52 ST (T wave) deviation now present Electronically Signed On 03-03-21 10:56:46 CDT by Randall Keita
[2021-03-03 11:48] VITALS: TEMP 98.8
[2021-03-03 11:52] VITALS: BP 160/52; O2SAT 98
--- NOTE | 2021-03-04 16:40 | EKG ---
Test Date: 2021-03-03 Test Time: 07:27:34 Electric Meter Installer: NICO MEASUREMENT RESULTS: Intervals: Rate: 61 CO: 162 QRSD: 74 QT: 472 QTc: 475 [place]: P: 60 CO: 162 QRS: 17 T: 221 INTERPRETIVE STATEMENTS: Sinus rhythm with occasional premature ventricular complexes Septal infarct, age undetermined T wave abnormality, consider inferior ischemia Abnormal ECG Compared to ECG 08/24/2019 09:28:52 Ventricular premature complex(es) now present Myocardial infarct finding now present T-wave abnormality now present Possible ischemia now present Sinus bradycardia no longer present Electronically Signed On 03-04-21 16:36:06 CDT by Randall Keita
== END 2021-03-03 11:38 | disposition home or self-care (01) ==
LOC: ER 07:24
DX: R51.9 Headache, unspecified (principal); H57.11 Ocular pain, right eye; I10 Essential (primary) hypertension; Z88.5 Allergy status to narcotic agent
CPT/HCPCS: 93005 ×2; 85025; 80048; 36415; 83735; 85610; 80076; 84484; 83880; 70450; 71045; 70553; A9577

== ENCOUNTER 2021-03-04 14:27 | Inpatient (IN) | payer OTHER ==
[2021-03-04 15:13] LABS: Absolute Lymphocytes (CBC) 2.3 K/uL (0.7-4.9); Basophils % 0.6 % (0-1.3); Hematocrit 39.7 % (36.0-45.0); Lymphocytes % 19.7 % (15.3-44.8); MPV 8.3 fL (7.6-11.3); RBC Red Blood Cell Count 5.23 M/uL (3.86-4.86)
[2021-03-04 15:15] LABS: Protime INR 1.24
[2021-03-04 15:18] LABS: Urine Blood Negative (Negative); Urine Glucose Negative (Negative); Urine Protein 2+ (Negative); Urine Specific Gravity 1.025 (1.005-1.030)
[2021-03-04] MEDS ORDERED: CEFTRIAXONE 1000 MG/VIAL ONE (15:29)
--- NOTE | 2021-03-04 15:29 | RAD REPORT ---
EXAM DESCRIPTION: RAD - Chest Single View - 03/04/2021 3:14 pm CLINICAL HISTORY: AMS;Malaise Chest pain. COMPARISON: Chest Single View dated 03/03/2021; Chest Pa And Lat (2 Views) dated 07/20/2019; Chest Si ngle View dated 11/04/2017; CHEST SINGLE VIEW dated 08/14/2014 FINDINGS: Portable technique limits examination quality. The lungs are grossly clear. The heart is normal in size. No displaced fractures. IMPRESSION: No acute intrathoracic process suspected.
[2021-03-04] MEDS ORDERED: VANCOMYCIN 1 GM/VIAL ONE (15:30)
[2021-03-04] MEDS ORDERED: NA CHLORIDE 0.9% 50 ML ONE (15:30)
[2021-03-04] MEDS ORDERED: NA CHLORIDE 0.9% 2,000 ML ONE (15:30)
[2021-03-04] MEDS ORDERED: NA CHLORIDE 0.9% 250 ML ONE (15:30)
[2021-03-04 15:40] LABS: ALT/SGPT 23 U/L (12-78); AST/SGOT 13 U/L (15-37); Albumin 3.8 g/dL (3.4-5.0); Alkaline Phosphatase 78 U/L (45-117); Amylase 21 U/L (25-115); BUN Blood Urea Nitrogen 24 mg/dL (7-18); Bicarbonate 22 mmol/L (21-32); Bilirubin Direct 0.1 mg/dL (0-0.2); Bilirubin Total 0.3 mg/dL (0.2-1.0); Creatine Phosphokinase 28 U/L (26-192); Glucose Level 114 mg/dL (74-106); Lipase 59 U/L (73-393); Potassium 4.1 mmol/L (3.5-5.1); Protein, Total 7.9 g/dL (6.4-8.2); Sodium Level 143 mmol/L (136-145); Troponin (Emerg Dept Use Only) < 0.02 ng/mL (0.0-0.045)
[2021-03-04 15:45] LABS: CKMB Creatine Kinase MB < 1.0 ng/mL (1.0-3.6)
[2021-03-04 15:49] LABS: Urine Bacteria LOADED /HPF (<20); Urine RBC <5 /HPF (NONE SEEN)
--- NOTE | 2021-03-04 16:38 | RAD REPORT ---
EXAM DESCRIPTION: CT - Head Brain Wo Cont - 03/04/2021 4:31 pm CLINICAL HISTORY: CONFUSED Headache, drowsiness COMPARISON: Head Brain Wo Cont dated 03/03/2021 TECHNIQUE: All CT scans are performed using dose optimization technique as appropriate and may inclu de automated exposure control or mA/KV adjustment according to patient size. FINDINGS: No intracranial hemorrhage, hydrocephalus or extra-axial fluid collection.Mild brain atrop hy is present.No areas of brain edema or evidence of midline shift. The paranasal sinuses and mastoids are clear. The calvarium is intact. IMPRESSION: No acute intracranial abnormality.
[2021-03-04] MEDS ORDERED: LORAZEPAM 1 MG TABLET ONE (17:46)
--- NOTE | 2021-03-04 18:31 | ER ---
Nurse's Notes [facility] Name: Kali Kumar Age: 70 yrs Sex: Female : 1950 Arrival Date: 03/04/2021 Time: 14:38 Bed 5 Private MD: Diagnosis: Altered mental status, unspecified;UTI/ Urinary tract infection, site not specified Presentation: 03/04 14:45 Acuity: ISAIAS 2 iw 14:45 Chief complaint: EMS states: pt came from Dr. Zhang's office , increasing AMS and iw weakness/dizziness over past couple days, was seen here yesterday. Coronavirus screen: Client presents with at least one sign or symptom that may indicate coronavirus-19. Ebola Screen: Patient negative for fever greater than or equal to 101.5 degrees Fahrenheit, and additional compatible Ebola Virus Disease symptoms Patient denies exposure to infectious person. Patient denies travel to an Ebola-affected area in the 21 days before illness onset. No symptoms or risks identified at this time. Initial Sepsis Screen: Does the patient meet any 2 criteria? No. Patient's initial sepsis screen is negative. Does the patient have a suspected source of infection? No. Patient's initial sepsis screen is negative. Risk Assessment: Do you want to hurt yourself or someone else? Patient reports no desire to harm self or others. Onset of symptoms was March 02, 2021. 14:45 Method Of Arrival: EMS: [facility] iw Historical: - Allergies: 14:58 Codeine; ll1 - PMHx: 14:58 Hyperlipidemia; Hypertension; Hypothyroidism; Depression; ll1 - Immunization history:: Adult Immunizations up to date. - Social history:: Smoking status: unknown. Screenin:37 Abuse screen: Denies threats or abuse. Nutritional screening: No deficits noted. ll1 Tuberculosis screening: No symptoms or risk factors identified. Fall Risk Secondary diagnosis (15 points) AMS. IV access (20 points). Gait- Impaired (20 pts.). Mental Status- Overestimates/Forgets Limitations (15 pts.). Total Schulz Fall Scale indicates High Risk Score (45 or more points). Fall prevention measures have been instituted. Side Rails Up X 2 Frequent Obs/Assessments Occuring Family Present and informed to notify staff if the need to leave the bedside As available patient and family educated on Fall Prevention Program and Strategies. 19:29 Patient has been NPO before screening. The patient is alert, able to follow commands. lh3 The patient does not exhibit slurred or garbled speech The patient is not exhibiting difficulty speaking. The patient does not exhibit difficulty understanding words. The patient is able to swallow own secretions with no drooling or need for suction. Patient tolerated one teaspoon of water. No drooling, immediate coughing, gurgling, or clearing of the throat was noted. The patient tolerated 90mL of water. No drooling, immediate coughing, gurgling, or clearing of the throat was noted. The patient passed the bedside swallow screening. Oral medications may be given as ordered. Contact Physician for further diet orders. Assessment: 15:00 General: Appears ill, Behavior is agitated, restless. Pain: Denies pain. Neuro: Level ll1 of Consciousness is awake, confused, Oriented to person, Weakness Speech is normal, Facial symmetry appears normal, Reports dizziness, weakness. 15:00 Cardiovascular: No deficits noted. Respiratory: No deficits noted. GI: No deficits ll1 noted. Musculoskeletal: Circulation, motion, and sensation intact. Capillary refill < 3 seconds, Range of motion: intact in all extremities, Reports weakness in generalized. 16:00 Reassessment: No changes from previously documented assessment. Patient and/or family ll1 updated on plan of care and expected duration. Pain level reassessed. 17:00 Reassessment: No changes from previously documented assessment. Patient and/or family ll1 updated on plan of care and expected duration. Pain level reassessed. more alert now. Knows her name and birthdate. 18:00 Reassessment: No changes from previously documented assessment. Patient and/or family ll1 updated on plan of care and expected duration. Pain level reassessed. more awake and alert now. Knows her name and birthday now. Vital Signs: 14:59 BP 169 / 64; Pulse 57; Resp 20 S; Temp 98.4; Pulse Ox 98% on R/A; Weight 77 kg; Height iw 4 ft. 11 in. (149.86 cm); 17:17 BP 176 / 69; Pulse 74; Resp 18; Pulse Ox 97% on R/A; ll1 18:52 BP 144 / 77; Pulse 71; Resp 18; Pulse Ox 99% on R/A; ll1 19:13 BP 175 / 61; Pulse 82; Resp 18; Pulse Ox 100% on R/A; lh3 20:27 BP 113 / 79; Pulse 82; Resp 18; Pulse Ox 99% on R/A; lh3 14:59 Body Mass Index 34.29 (77.00 kg, 149.86 cm) iw ED Course: 14:38 Patient arrived in ED. ss 14:45 Maintain EMS IV. Dressing intact. Good blood return noted. Site clean \T\ dry. Gauge \T\ iw site: 20 RAC. 14:53 Eddie Benavides MD is Attending Physician. kdr 14:55 Audrey Grewal RN is Primary Nurse. ll1 14:58 Arm band placed on Patient placed in an exam room, on a stretcher. ll1 15:00 Patient has correct armband on for positive identification. Bed in low position. Call ll1 light in reach. Side rails up X2. Pulse ox on. NIBP on. 15:00 Urine collected: Zamarripa catheter specimen, clear. Zamarripa cath inserted, using sterile iw technique, 16 Fr., by ak, balloon inflated, urine specimen collected. returned clear yellow urine. Patient tolerated well. 15:11 Triage completed. iw 15:14 Chest Single View XRAY In Process Unspecified. EDMS 16:30 CT Head Brain wo Cont In Process Unspecified. EDMS 18:30 Giovanny Rothman DO is Hospitalizing Provider. kdr 20:29 Report given to BALJEET Hernandez. lh3 20:30 No provider procedures requiring assistance completed. Patient admitted, IV remains in lh3 place. Administered Medications: 15:24 Drug: NS 0.9% (30 ml/kg) 30 ml/kg Route: IV; Rate: bolus; Site: right antecubital; ll1 15:31 Drug: Rocephin - (cefTRIAXone) 1 grams Route: IVPB; Infused Over: 30 mins; Site: right ll1 antecubital; 15:55 Follow up: Response: No adverse reaction; IV Status: Completed infusion; IV Intake: [id number] 15:50 Drug: vancoMYCIN 1 grams Route: IVPB; Infused Over: 2 hrs; Site: right antecubital; ll1 17:50 Follow up: Response: No adverse reaction; IV Status: Completed infusion; IV Intake: ll1 250ml 17:25 Drug: Ativan (LORazepam) 1 mg Route: PO; ll1 18:56 Follow up: Response: No adverse reaction ll1 19:43 Drug: cloNIDine 0.2 mg Route: PO; lh3 20:31 Follow up: Response: No adverse reaction lh3 19:43 Drug: Metoprolol 50 mg Route: PO; lh3 20:31 Follow up: Response: No adverse reaction lh3 19:43 Drug: Aspirin 81 mg Route: PO; lh3 20:31 Follow up: Response: No adverse reaction lh3 19:43 Drug: foLIC Acid 1 mg Route: PO; lh3 20:30 Follow up: Response: No adverse reaction lh3 19:43 Drug: Atorvastatin 20 mg Route: PO; lh3 20:30 Follow up: Response: No adverse reaction lh3 Intake: 15:55 IV: 50ml; Total: 50ml. ll1 17:50 IV: 250ml; Total: 300ml. ll1 Outcome: 18:30 Decision to Hospitalize by Provider. kdr 20:29 Admitted to Med/surg lh3 20:29 Admitted to Med/surg room 423, Report called to BALJEET Donahue 20:29 Condition: good 20:29 Instructed on the need for admit. 20:59 Patient left the ED. em Signatures: Dispatcher [employer] EDEddie Myers MD MD [facility] Chris Ayoub RN RN em Galina Jones RN RN Becky Ceron RN RN ss Lewis, Lynsay, RN RN 1 Lizzeth Licea RN RN 3 Corrections: (The following items were deleted from the chart) 15:10 14:59 77 kg; Height 4 ft. 11 in.; BMI: 34.2; 1 iw 15:33 15:24 Rocephin - (cefTRIAXone) 1 grams IVPB in right antecubital over 30 mins ll1 ll1 16:37 15:00 Neuro: Level of Consciousness is awake, confused, Oriented to person, Weakness ll1 Speech is normal, Facial symmetry appears normal, Reports ll1
--- NOTE | 2021-03-04 18:31 | EDPHYS ---
Physician Documentation [facility] Name: Kali Kumar Age: 70 yrs Sex: Female : 1950 Arrival Date: 03/04/2021 Time: 14:38 Bed 5 Private MD: ED Physician Eddie Benavides HPI: 03/04 18:30 This 70 yrs old Female presents to ER via EMS with complaints of Altered kdr Mental Status. 18:30 The patient presents with confusion, decreased mental status, Diaphoretic. Onset: The kdr symptoms/episode began/occurred just prior to arrival, today. Possible causes: CVA or TIA, sepsis. Associated signs and symptoms: Pertinent positives: agitation, confusion. Patient's baseline: Neuro: alert and fully oriented, Motor: no deficits, Ambulation: Speech: Family reports that the patient was generally able to communicate. It is unknown whether or not the patient has had similar symptoms in the past. The patient has been recently seen at the [facility] Emergency Department, yesterday, Patient was fully evaluated yesterday for dizziness. She was subsequently discharged to follow-up. She had seen ophthalmology today and then neurology. While in the neurologist office, she became diaphoretic and more confused. The neurologist related the fact that she was perseverating and not able to respond to questions appropriately in his office. Dr. Zhang then called EMS to transfer for the patient to the ED while calling me to give me a history of her visit with his office.. Historical: - Allergies: 14:58 Codeine; ll1 - PMHx: 14:58 Hyperlipidemia; Hypertension; Hypothyroidism; Depression; ll1 - Immunization history:: Adult Immunizations up to date. - Social history:: Smoking status: unknown. ROS: 18:30 Constitutional: Unobtainable secondary to the patient's altered mental status Eyes: kdr Negative for injury, pain, redness, and discharge, Neck: Negative for injury, pain, and swelling. 18:30 Unable to obtain ROS due to altered mental status. Exam: 18:30 Constitutional: This is a well developed, well nourished patient who is somewhat kdr somnolent but responsive to questions in a vague nonspecific fashion otherwise in no acute distress. Head/Face: Normocephalic, atraumatic. Eyes: Pupils equal round and reactive to light, extra-ocular motions intact. Lids and lashes normal. Conjunctiva and sclera are non-icteric and not injected. Cornea within normal limits. Periorbital areas with no swelling, redness, or edema. Neck: Trachea midline, no thyromegaly or masses palpated, and no cervical lymphadenopathy. Supple, full range of motion without nuchal rigidity, or vertebral point tenderness. No Meningismus. Chest/axilla: Normal chest wall appearance and motion. Nontender with no deformity. No lesions are appreciated. Cardiovascular: Regular rate and rhythm with a normal S1 and S2. No gallops, murmurs, or rubs. Normal PMI, no JVD. No pulse deficits. Respiratory: Lungs have equal breath sounds bilaterally, clear to auscultation and percussion. No rales, rhonchi or wheezes noted. No increased work of breathing, no retractions or nasal flaring. Abdomen/GI: Soft, non-tender, with normal bowel sounds. No distension or tympany. No guarding or rebound. No evidence of tenderness throughout. Back: No spinal tenderness. No costovertebral tenderness. Full range of motion. Skin: Warm, dry with normal turgor. Normal color with no rashes, no lesions, and no evidence of cellulitis. MS/ Extremity: Pulses equal, no cyanosis. Neurovascular intact. Full, normal range of motion. 18:30 Neuro: Orientation: to person, Not oriented to place, time, situation, Mentation: inappropriate for stated age, confused, Memory: unable to test, Motor: moves all fours, Sensation: unable to test. Vital Signs: 14:59 BP 169 / 64; Pulse 57; Resp 20 S; Temp 98.4; Pulse Ox 98% on R/A; Weight 77 kg; Height iw 4 ft. 11 in. (149.86 cm); 17:17 BP 176 / 69; Pulse 74; Resp 18; Pulse Ox 97% on R/A; ll1 18:52 BP 144 / 77; Pulse 71; Resp 18; Pulse Ox 99% on R/A; ll1 19:13 BP 175 / 61; Pulse 82; Resp 18; Pulse Ox 100% on R/A; lh3 20:27 BP 113 / 79; Pulse 82; Resp 18; Pulse Ox 99% on R/A; lh3 14:59 Body Mass Index 34.29 (77.00 kg, 149.86 cm) Procedures: 18:30 Lumbar Puncture: Patient placed in left lateral decubitus position. clear fluid. kdr Puncture site dressed with band aid, Patient tolerated well. MDM: 18:30 Patient medically screened. kdr 18:30 Data reviewed: vital signs, nurses notes, lab test result(s), radiologic studies. kdr Counseling: I had a detailed discussion with the patient and/or guardian regarding: the historical points, exam findings, and any diagnostic results supporting the discharge/admit diagnosis, lab results, radiology results, the need for further work-up and treatment in the hospital. 03/04 14:42 Order name: Amylase, Serum; Complete Time: 15:53 03/04 14:42 Order name: Basic Metabolic Panel; Complete Time: 15:53 03/04 14:42 Order name: Blood Culture Adult (2) 03/04 14:42 Order name: CBC with Diff; Complete Time: 15:53 03/04 14:42 Order name: CPK; Complete Time: 15:53 03/04 14:42 Order name: Ckmb; Complete Time: 15:53 03/04 14:42 Order name: LFT's; Complete Time: 15:53 03/04 14:42 Order name: Lactate; Complete Time: 15:53 03/04 14:42 Order name: Lipase; Complete Time: 15:53 03/04 14:42 Order name: Procalcitonin; Complete Time: 15:53 03/04 14:42 Order name: Protime (+inr); Complete Time: 15:53 03/04 14:42 Order name: Ptt, Activated; Complete Time: 15:53 03/04 14:42 Order name: Troponin (emerg Dept Use Only); Complete Time: 15:53 03/04 14:42 Order name: Urine Microscopic Only; Complete Time: 15:53 03/04 14:42 Order name: Chest Single View XRAY; Complete Time: 15:53 03/04 15:17 Order name: Urine Dipstick-Ancillary; Complete Time: 15:53 EDUT 03/04 15:50 Order name: Urine Culture EDUT 03/04 15:53 Order name: CT Head Brain wo Cont; Complete Time: 16:47 kdr 03/04 16:10 Order name: SARS-COV-2 RT PCR; Complete Time: 17:42 EDMS 03/04 17:43 Order name: Csf Culture kdr 03/04 17:43 Order name: Fluid Cell Count,Body; Complete Time: 18:36 kdr 03/04 17:43 Order name: Spinal Fluid Profile; Complete Time: 18:50 kdr 03/04 14:42 Order name: Accucheck; Complete Time: 15:19 iw 03/04 14:42 Order name: Cardiac monitoring; Complete Time: 15:25 iw 03/04 14:42 Order name: EKG - Nurse/Tech; Complete Time: 15:14 iw 03/04 14:42 Order name: IV Saline Lock - Large Bore; Complete Time: 14:56 iw 03/04 14:42 Order name: Labs collected and sent; Complete Time: 14:56 iw 03/04 14:42 Order name: O2 Per Protocol; Complete Time: 14:56 03/04 14:42 Order name: O2 Sat Monitoring; Complete Time: 14:56 iw 03/04 14:42 Order name: Urine Dipstick-Ancillary (obtain specimen); Complete Time: 15:25 iw 03/04 17:43 Order name: LP Setup; Complete Time: 18:57 kdr 03/04 18:49 Order name: Swallow Screen; Complete Time: 19:29 la1 Administered Medications: 15:24 Drug: NS 0.9% (30 ml/kg) 30 ml/kg Route: IV; Rate: bolus; Site: right antecubital; ll1 15:31 Drug: Rocephin - (cefTRIAXone) 1 grams Route: IVPB; Infused Over: 30 mins; Site: right ll1 antecubital; 15:55 Follow up: Response: No adverse reaction; IV Status: Completed infusion; IV Intake: [id number] 15:50 Drug: vancoMYCIN 1 grams Route: IVPB; Infused Over: 2 hrs; Site: right antecubital; ll1 17:50 Follow up: Response: No adverse reaction; IV Status: Completed infusion; IV Intake: ll1 250ml 17:25 Drug: Ativan (LORazepam) 1 mg Route: PO; ll1 18:56 Follow up: Response: No adverse reaction ll1 19:43 Drug: cloNIDine 0.2 mg Route: PO; 3 20:31 Follow up: Response: No adverse reaction lh3 19:43 Drug: Metoprolol 50 mg Route: PO; lh3 20:31 Follow up: Response: No adverse reaction lh3 19:43 Drug: Aspirin 81 mg Route: PO; lh3 20:31 Follow up: Response: No adverse reaction lh3 19:43 Drug: foLIC Acid 1 mg Route: PO; lh3 20:30 Follow up: Response: No adverse reaction lh3 19:43 Drug: Atorvastatin 20 mg Route: PO; lh3 20:30 Follow up: Response: No adverse reaction lh3 Disposition Summary: 03/04/21 18:30 Hospitalization Ordered Hospitalization Status: Inpatient Admission kdr Provider: Giovanny Rothman Location: Telemetry/MedSurg (observation) kdr Condition: Stable kdr Problem: new kdr Symptoms: are unchanged kdr Bed/Room Type: Standard kdr Room Assignment: 423(03/04/21 20:14) tt3 Diagnosis - Altered mental status, unspecified kdr - UTI/ Urinary tract infection, site not specified kdr Forms: - Medication Reconciliation Form kdr - SBAR form kdr Signatures: Dispatcher [employer] EDMS Eddie Benavides MD MD kdr Galina Jones, RN RN iw Freddy Phelps, CT TECHNOLOGIST-C CT TECHNOLOGIST-Cla1 Audrey Grewal, RN RN ll1 Cruz Jones tt3 Lizzeth Licea RN RN lh3 Corrections: (The following items were deleted from the chart) 16:10 15:30 CORONAVIRUS+MR.LAB.BRZ ordered. EDMS EDMS 18:59 17:43 LP Consents ordered. kdr ll1 20:14 18:30 kdr tt3
[2021-03-04 18:33] LABS: Appearance CLEAR (CLEAR); Body Fluid Source CSF; Body Fluid WBC 1 /mm^3; Color of fluid Colorless (COLORLESS)
[2021-03-04 18:34] LABS: Appearance CLEAR (CLEAR); Body Fluid Source CSF; Body Fluid WBC 1 /mm^3; Color of fluid Colorless (COLORLESS); Fluid Total Volume 4.5 ml
[2021-03-04 18:46] LABS: CSF Glucose 62 mg/dL (40-70)
--- NOTE | 2021-03-04 19:06 | P.HP ---
Certification for Inpatient Patient admitted to: Inpatient With expected LOS: >2 Midnights Patient will require the following post-hospital care: None Practitioner: I am a practitioner with admitting privileges, knowledge of patient current condition, hospital course, and medical plan of care. Services: Services provided to patient in accordance with Admission requirements found in Title 42 Section 412.3 of the Code of Federal Regulations Patient History Date of Service: 03/04/21 Primary Care Provider: Dr. Richardson Reason for admission: Altered mental status, urinary tract infection History of Present Illness: 70-year-old female with history of CAD, hypertension, hyperlipidemia, hypothyroidism presents emergency department for altered mental status. Patient was seen and here in the emergency department yesterday for dizziness, son reports that they followed up today with neurology and patient was more altered than previous, became diaphoretic, neurology called 911 for transport to the emergency department for reevaluation. Upon arrival to the emergency department patient unable to answer any questions, clearly confused without any focal weakness. Patient was evaluated in the emergency department, CT head brain negative for any acute findings chest x-ray unremarkable lab significant for white blood cell count 11.6 urine with nitrite positive, loaded bacteria on microscopic analysis patient had lumbar puncture so far is clear with normal glucose, protein, blood counts. Patient still confused although now improved to know her name and date of , son at bedside reports the patient lives at home with a family member usually is oriented x4 and independent. Neurological exam difficult given confusion but moving all extremities without focal deficits noted. ED provider wishes to admit for evaluation of altered mental status, urinary tract infection. Allergies codeine Allergy (Verified 07/26/16 01:41) Itching Home Medications: Amlodipine Besylate [Norvasc] 10 mg PO BEDTIME 08/14/14 Aspirin 81 mg PO DAILY 08/14/14 Clopidogrel Bisulfate [Plavix] 75 mg PO DAILY 08/14/14 Duloxetine HCl [Cymbalta] 60 mg PO BEDTIME 08/14/14 Rosuvastatin Calcium [Crestor] 20 mg PO BEDTIME 08/14/14 Valsartan [Diovan] 160 mg PO BID 08/14/14 Fluticasone Propionate [Flonase Allergy Relief] 9.9 ml NS Q6H PRN 07/26/16 Levothyroxine [Synthroid*] 100 mcg PO [id number] 07/26/16 Hydralazine [Apresoline*] 50 mg PO TID #90 tab 07/27/16 Metoprolol Tartrate [Lopressor*] 100 mg PO BID #60 tab 07/27/16 levoFLOXacin [Levaquin*] 500 mg PO DAILY #10 tab 07/27/16 metroNIDAZOLE [Flagyl*] 500 mg PO TID #30 tablet 07/27/16 traMADol HCL [Ultram*] 50 mg PO TID PRN #30 tab 07/27/16 - Past Medical/Surgical History Diabetic: No -: hypertension -: hypothyroidism -: high cholesterol -: diverticulitis perforated -: CAD -: Anxiety -: cardiac stent, endarterectomy -: thyroidectomy -: cholecystectomy -: appendectomy -: tubal ligation -: bladder suspension -: knee SX -: hysterectomy - Family History Brother -: Heart disease, Hypertension, Diabetes, Other (see notes) Notes: parkinsons Sister -: Hypertension, GI disease, Other (see notes) Notes: diverticulosis - Social History Smoking Status: Never smoker Alcohol use: No CD- Drugs: No Caffeine use: Yes Place of Residence: Home Review of Systems is unable to be obtained Physical Examination - Physical Exam General: Oriented x1, Confused HEENT: Atraumatic Neck: Supple Respiratory: Clear to auscultation bilaterally Cardiovascular: No edema, Normal S1 S2 Capillary refill: <2 Seconds Gastrointestinal: Normal bowel sounds Musculoskeletal: No contractures, No erythema Integumentary: No tenderness/swelling, No erythema, No warmth Neurological: Normal speech, Normal strength at 5/5 x4 extr, Normal tone, Sensation intact - Studies Laboratory Data (last 24 hrs) 03/04/21 14:52: PT 14.3 H, INR 1.24, APTT 64.1 H 03/04/21 14:52: WBC 11.60 H D, Hgb 12.9, Hct 39.7, Plt Count 391 03/04/21 14:52: Sodium 143, Potassium 4.1, BUN 24 H, Creatinine 0.89, Glucose 114 H, Total Bilirubin 0.3, AST 13 L, ALT 23, Alkaline Phosphatase 78, Amylase 21 L, Lipase 59 L Assessment and Plan - Plan Assessment: AMS, toxic metabolic encephalopathy secondary to urinary tract infection Hypertension Hyperlipidemia Hypothyroidism CAD/PVD Anxiety GERD Plan: AMS, toxic metabolic encephalopathy secondary to urinary tract infection: Urine culture obtained, continue with IV antibioticsRocephin. Patient without focal weakness seems more encephalopathic. Will obtain MRI to rule out CVA. Also continue aspirin, statin and add folic acid. Neurochecks, fall precautions. Son informed of findings and plan of care discussed, son's name is Neo phone #[phone]. Hypertension: Have continued home medications Hyperlipidemia: Have continued home medications Hypothyroidism: Have continued home medications will check thyroid panel with morning labs CAD/PVD: Have continued home medications monitor on telemetry Anxiety: Have continued home medications GERD:Have continued home medications DVT PPX: Lovenox Code status: Full Discharge Plan: Home Plan to discharge in: 72 Hours - Advance Directives Does patient have a Living Will: No Does patient have a Durable POA for Healthcare: No - Code Status/Comfort Care Code Status Assessed: Yes (Full code) Critical Care: No Time Spent Managing Pts Care (In Minutes): 55
[2021-03-04] MEDS ORDERED: METOPROLOL TAR 50 MG TAB ONE (19:58)
[2021-03-04] MEDS ORDERED: cloNIDine HCL 0.1 MG TAB ONE (19:58)
[2021-03-04] MEDS ORDERED: FOLIC ACID 1 MG TABLET ONE (19:59)
[2021-03-04] MEDS ORDERED: ATORVASTATIN 20 MG TAB ONE (19:59)
[2021-03-04] MEDS ORDERED: ASPIRIN 81 MG CHEWABLE TABLET ONE (19:59)
[2021-03-04] MEDS ORDERED: LORAZEPAM 0.5 MG TABLET PO PRN (20:23)
[2021-03-04] MEDS ORDERED: ONDANSETRON 4 MG/2 ML VIAL IV PRN (20:23)
[2021-03-04] MEDS ORDERED: ACETAMINOPHEN 500 MG TAB PO PRN (20:23)
[2021-03-04] MEDS: ATORVASTATIN 40 MG TAB PO SCH (21:00)
[2021-03-04] MEDS: cloNIDine HCL 0.1 MG TAB PO SCH (21:00)
[2021-03-04] MEDS: HYDRALAZINE HCL 20 MG/ML VIAL IV PRN (21:45)
[2021-03-04 23:11] VITALS: BMI 35.3
[2021-03-04] MEDS ORDERED: SOD CHLORIDE 0.65% NASAL SPRAY NAS PRN (23:23)
[2021-03-05] MEDS ORDERED: LORazepam 2 MG/ML VIAL IV PRN (00:54)
[2021-03-05 04:12] LABS: Absolute Lymphocytes (CBC) 1.7 K/uL (0.7-4.9); Basophils % 0.7 % (0-1.3); Hematocrit 34.8 % (36.0-45.0); Lymphocytes % 16.9 % (15.3-44.8); MPV 8.3 fL (7.6-11.3); RBC Red Blood Cell Count 4.63 M/uL (3.86-4.86)
[2021-03-05] MEDS: HYDRALAZINE HCL 20 MG/ML VIAL IV PRN ×2 (04:50→11:25)
[2021-03-05] MEDS ORDERED: LABETALOL 20 MG/4ML SYRINGE IV ONE (05:16)
[2021-03-05 05:22] LABS: ALT/SGPT 19 U/L (12-78); AST/SGOT 14 U/L (15-37); Albumin 3.4 g/dL (3.4-5.0); Alkaline Phosphatase 71 U/L (45-117); BUN Blood Urea Nitrogen 16 mg/dL (7-18); Bicarbonate 19 mmol/L (21-32); Bilirubin Total 0.4 mg/dL (0.2-1.0); Glucose Level 111 mg/dL (74-106); HDL Cholesterol 37 mg/dL (40-60); LDL Cholesterol, Calculated 27 (<130); Magnesium 1.8 mg/dL (1.8-2.4); Protein, Total 6.6 g/dL (6.4-8.2); Sodium Level 144 mmol/L (136-145)
[2021-03-05 05:40] LABS: Potassium 2.8 mmol/L (3.5-5.1)
[2021-03-05] MEDS: METOPROLOL XL 50 MG TAB PO SCH ×2 (05:41→18:38)
[2021-03-05] MEDS: PANTOPRAZOLE 40MG TABLET PO SCH (05:51)
[2021-03-05] MEDS: LEVOTHYROXINE SOD 0.125 MG TAB PO SCH (05:51)
--- NOTE | 2021-03-05 05:58 | P.PN ---
Subjective Date of Service: 03/05/21 Primary Care Provider: Dr. Richardson Chief Complaint: Altered mental status, urinary tract infection Subjective: Other (Patient alert and somewhat cooperative. Some confusion still noted) Physical Examination - Vital Signs Temperature: 97.7 F Blood Pressure: 218/68 Pulse: 65 Respirations: 16 Pulse Ox (%): 99 - Studies Laboratory Data (last 24 hrs) 03/04/21 14:52: PT 14.3 H, INR 1.24, APTT 64.1 H 03/04/21 14:52: WBC 11.60 H D, Hgb 12.9, Hct 39.7, Plt Count 391 03/04/21 14:52: Sodium 143, Potassium 4.1, BUN 24 H, Creatinine 0.89, Glucose 114 H, Total Bilirubin 0.3, AST 13 L, ALT 23, Alkaline Phosphatase 78, Amylase 21 L, Lipase 59 L Microbiology Data (last 24 hrs): 03/04/21 17:30 Cerebral Spinal Fluid Gram Stain - Final Assessment & Plan Discharge Plan: Home Plan to discharge in: Greater than 2 days Physician Review Additional Text: COVID: negative CT Head: COMPARISON: Head Brain Wo Cont dated 03/03/2021 TECHNIQUE: All CT scans are performed using dose optimization technique as appropriate and may include automated exposure control or mA/KV adjustment according to patient size. FINDINGS: No intracranial hemorrhage, hydrocephalus or extra-axial fluid collection.Mild brain atrophy is present.No areas of brain edema or evidence of midline shift. The paranasal sinuses and mastoids are clear. The calvarium is intact. IMPRESSION: No acute intracranial abnormality. CXR: COMPARISON: Chest Single View dated 03/03/2021; Chest Pa And Lat (2 Views) dated 07/20/2019; Chest Single View dated 11/04/2017; CHEST SINGLE VIEW dated 08/14/2014 FINDINGS: Portable technique limits examination quality. The lungs are grossly clear. The heart is normal in size. No displaced fractures. IMPRESSION: No acute intrathoracic process suspected. Physical Exam: General: Patient alert, somewhat cooperative. Mild confusion noted. HEENT: Atraumatic Neck: Supple Respiratory: Clear to auscultation bilaterally Cardiovascular: No edema, Normal S1 S2 Capillary refill: <2 Seconds Gastrointestinal: Normal bowel sounds Musculoskeletal: No contractures, No erythema Integumentary: No tenderness/swelling, No erythema, No warmth Neurological: Normal speech, Normal strength at 5/5 x4 extr, Normal tone, Sensation intact Impression: AMS, toxic metabolic encephalopathy secondary to urinary tract infection Hypertension Hyperlipidemia Hypothyroidism CAD/PVD Anxiety GERD Plan: AMS, toxic metabolic encephalopathy secondary to urinary tract infection: Patient still with mild confusion. Overall stable. Continue IV Rocephin. Blood, urine cultures obtained. Covid negative. Chest x-ray unremarkable. Spinal tap shows no evidence of infection. Will obtain MRI stroke protocol to evaluate for possible CVA. Continue aspirin, statin and folic acid. Will discuss with her neurologist. Consult neurology for further recommendation. Will monitor closely. Will update family. Hypertension: Continue clonidine 0.2 mg 1 pill 3 times a day, metoprolol 50 mg 1 pill twice daily and nifedipine 30 mg daily. Continue to adjust for better c ontrol. Hold Lasix. Hyperlipidemia: Continue Lipitor 40 mg daily Hypothyroidism: Continue levothyroxine 125 mcg daily CAD/PVD: Continue aspirin, Plavix and Lipitor. Anxiety: We will provide medication as needed GERD: We will provide medication as needed DVT PPX: Lovenox Code status: Full Discharge Plan: Home Time Spent Managing Pts Care (In Minutes): 55
[2021-03-05] MEDS: MAGNESIUM SULFATE 1 gm IVPB 1 GM/100 ML BAG IV ONE ×2 (07:36→10:20)
[2021-03-05] MEDS: KCL 20 MEQ/100 mL IVPB 20 MEQ/100 ML BAG IV SCH ×4 (07:36→16:03)
[2021-03-05] MEDS: ASPIRIN EC 81 MG TAB PO SCH (08:36)
[2021-03-05] MEDS: ENOXAPARIN 40 MG/0.4 ML SQ SCH (08:36)
[2021-03-05] MEDS: CLOPIDOGREL 75 MG TABLET PO SCH (08:36)
[2021-03-05] MEDS: FOLIC ACID 1 MG TABLET PO SCH (08:37)
[2021-03-05] MEDS: cloNIDine HCL 0.1 MG TAB PO SCH ×3 (08:37→20:14)
[2021-03-05] MEDS: NIFEDIPINE XL 30 MG TABLET PO SCH (08:39)
[2021-03-05] MEDS ORDERED: CEFTRIAXONE 1 GM/NS 50 ML 1 GM/50 ML BAG IV SCH (09:00)
[2021-03-05] MEDS ORDERED: FUROSEMIDE 40 MG TABLET PO SCH (09:00)
[2021-03-05 10:46] VITALS: O2SAT 97
[2021-03-05] MEDS: CEFTRIAXONE 1 GM/NS 50 ML 1 GM/50 ML BAG IV SCH (11:26)
--- NOTE | 2021-03-05 16:52 | RAD REPORT ---
EXAM DESCRIPTION: MRI - Brain W/Wo Cont - 03/05/2021 3:24 pm CLINICAL HISTORY: AMS Headache, drowsiness, CVA symptomology COMPARISON: MRA Head Wo Cont dated 03/05/2021; MRA Neck W/Wo Cont dated 03/05/2021; Brain W/Wo Cont dated 03/03/2021; Head Brain Wo Cont dated 03/04/2021 TECHNIQUE: Multi-sequence, multiplanar MR imaging of the brain was performed with contrast. FINDINGS: There is subtle restricted diffusion signal now present in the posterior right parietal lo be as well as the posterior left superior parietal lobe. These areas of abnormal signal are a new fin ding since 03/03/2021 MRI study. The area of abnormal diffusion restriction appears to involves prima rily the cortex and on the right measures 7-8 cm in the anterior posterior length and on the left temitope suring 3-4 cm in anterior posterior length. These regions also demonstrate reduced ADC mapping signal . Subtle correlate FLAIR signal abnormality is seen in these regions. There is no evidence of acute hemorrhage, hydrocephalus, extra-axial fluid collection or midline shif t.. No intracranial mass. . The midline structures are normally formed. Mastoid air cells and paranasal sinuses are clear. Post-contrast images show no abnormal enhancement to suggest tumor or infection. Right-sided DVA mannie cent to the right posterolateral ventricle again noted. IMPRESSION: Development of abnormal DWI/ADC signal involving the posterior cortex of both parietal l obes, more significant on the right, suspicious for acute developing CVA. This is a new finding since 03/03/2021.
--- NOTE | 2021-03-05 16:53 | RAD REPORT ---
EXAM DESCRIPTION: MRI - MRA Neck W/Wo Cont - 03/05/2021 3:42 pm CLINICAL HISTORY: AMS Headache, drowsiness, CVA symptomology COMPARISON: No comparisons FINDINGS: Contrast enhance 2D [id number] MR angiography of the neck vessels was performed. A left aortic arch is present. Both subclavian arteries and common carotid arteries are patent. There is evidence of a severe stenosis involving the proximal left internal carotid artery resulting in a stenosis based on NASCET criteria estimated at 95-99% There is significant stenosis also seen involving the proximal right internal carotid artery estimate d at 70-80% based on NASCET criteria. Antegrade flow is seen in both vertebral arteries with left-sided dominance. IMPRESSION: Severe stenosis of the proximal left internal carotid artery is suspected estimated at 9 5-99%. Moderate to severe stenosis of the right internal carotid artery suspected estimated at 70-80%.
--- NOTE | 2021-03-05 16:53 | RAD REPORT ---
EXAM DESCRIPTION: MRI - MRA Head Wo Cont - 03/05/2021 3:40 pm CLINICAL HISTORY: AMS CVA COMPARISON: Head Brain Wo Cont dated 03/04/2021 FINDINGS: 3D noncontrast [id number] MR angiography of the [place] was performed. No aneurysm, flow-limiting stenosis or vascular malformation is seen. Left vertebral artery is domina nt. The visualized dural venous sinuses appear patent. IMPRESSION: No significant flow abnormality of the [place] is identified.
--- NOTE | 2021-03-05 18:31 | P.DS ---
Admission Date: 03/04/21 Discharge Date: 03/05/21 Primary Care Provider: Dr. Richardson Discharge Condition: FAIR Reason for Admission: Altered mental status, urinary tract infection Consultations: Neurology-Dr. Zhang Procedures: MRA Neck: COMPARISON: No comparisons FINDINGS: Contrast enhance 2D [id number] MR angiography of the neck vessels was performed. A left aortic arch is present. Both subclavian arteries and common carotid arteries are patent. There is evidence of a severe stenosis involving the proximal left internal carotid artery resulting in a stenosis based on NASCET criteria estimated at 95-99% There is significant stenosis also seen involving the proximal right internal carotid artery estimated at 70-80% based on NASCET criteria. Antegrade flow is seen in both vertebral arteries with left-sided dominance. IMPRESSION: Severe stenosis of the proximal left internal carotid artery is suspected estimated at 95-99%. Moderate to severe stenosis of the right internal carotid artery suspected estimated at 70-80%. MRA brain: COMPARISON: Head Brain Wo Cont dated 03/04/2021 FINDINGS: 3D noncontrast [id number] MR angiography of the [place] was performed. No aneurysm, flow-limiting stenosis or vascular malformation is seen. Left vertebral artery is dominant. The visualized dural venous sinuses appear patent. IMPRESSION: No significant flow abnormality of the [place] is identified. MRI: COMPARISON: MRA Head Wo Cont dated 03/05/2021; MRA Neck W/Wo Cont dated 03/05/2021; Brain W/Wo Cont dated 03/03/2021; Head Brain Wo Cont dated 03/04/2021 TECHNIQUE: Multi-sequence, multiplanar MR imaging of the brain was performed with contrast. FINDINGS: There is subtle restricted diffusion signal now present in the posterior right parietal lobe as well as the posterior left superior parietal lobe. These areas of abnormal signal are a new finding since 03/03/2021 MRI study. The area of abnormal diffusion restriction appears to involves primarily the cortex and on the right measures 7-8 cm in the anterior posterior length and on the left measuring 3-4 cm in anterior posterior length. These regions also demonstrate reduced ADC mapping signal. Subtle correlate FLAIR signal abnormality is seen in these regions. There is no evidence of acute hemorrhage, hydrocephalus, extra-axial fluid collection or midline shift.. No intracranial mass. . The midline structures are normally formed. Mastoid air cells and paranasal sinuses are clear. Post-contrast images show no abnormal enhancement to suggest tumor or infection. Right-sided DVA adjacent to the right posterolateral ventricle again noted. IMPRESSION: Development of abnormal DWI/ADC signal involving the posterior cortex of both parietal lobes, more significant on the right, suspicious for acute developing CVA. This is a new finding since 03/03/2021. COVID: negative CT Head: COMPARISON: Head Brain Wo Cont dated 03/03/2021 TECHNIQUE: All CT scans are performed using dose optimization technique as appropriate and may include automated exposure control or mA/KV adjustment according to patient size. FINDINGS: No intracranial hemorrhage, hydrocephalus or extra-axial fluid collection.Mild brain atrophy is present.No areas of brain edema or evidence of midline shift. The paranasal sinuses and mastoids are clear. The calvarium is intact. IMPRESSION: No acute intracranial abnormality. CXR: COMPARISON: Chest Single View dated 03/03/2021; Chest Pa And Lat (2 Views) dated 07/20/2019; Chest Single View dated 11/04/2017; CHEST SINGLE VIEW dated 08/14/2014 FINDINGS: Portable technique limits examination quality. The lungs are grossly clear. The heart is normal in size. No displaced fractures. IMPRESSION: No acute intrathoracic process suspected. Impression: Altered mental status secondary to acute CVA with bilateral internal carotid stenosis urinary tract infection Hypertension Hyperlipidemia Hypothyroidism CAD/PVD Anxiety GERD Brief History of Present Illness: 70-year-old female with history of CAD, hypertension, hyperlipidemia, hypothyroidism presents emergency department for altered mental status. Patient was seen and here in the emergency department yesterday for dizziness, son reports that they followed up today with neurology and patient was more altered than previous, became diaphoretic, neurology called 911 for transport to the emergency department for reevaluation. Upon arrival to the emergency department patient unable to answer any questions, clearly confused without any focal weakness. Patient was evaluated in the emergency department, CT head brain negative for any acute findings chest x-ray unremarkable lab significant for white blood cell count 11.6 urine with nitrite positive, loaded bacteria on microscopic analysis patient had lumbar puncture so far is clear with normal glucose, protein, blood counts. Patient still confused although now improved to know her name and date of , son at bedside reports the patient lives at home with a family member usually is oriented x4 and independent. Neurological exam difficult given confusion but moving all extremities without focal deficits noted. ED provider wishes to admit for evaluation of altered mental status, urinary tract infection. Hospital Course: Patient was admitted yesterday for altered mental status with suspected toxic metabolic encephalopathy related to urinary tract infection. MRI was ordered as well to rule out acute CVA, MRI stroke protocol revealed significant stenosis to bilateral internal carotid arteries and MRI brain without contrast was positive for suspected acute CVA. Case was discussed with neurology who recommends transfer to tertiary center for possible vascular intervention given severe stenosis of carotid arteries and acute CVA. Case was discussed with Dr. De La Cruz and Dr. Mistry at [facility], currently pending acceptance. Patient has had mild improvement mental status, currently oriented x1-2. Patient did pass swallow screen and has been on aspirin, Plavix, folic acid, statin in addition to her home blood pressure medications and levothyroxine. Appreciate additional assistance from tertiary center/vascular surgery. Vital Signs/Physical Exam: Temp Pulse Resp BP Pulse Ox 98.3 F 93 H 16 150/74 H 96 03/05/21 16:00 03/05/21 16:00 03/05/21 16:00 03/05/21 16:00 03/05/21 16:00 General: Alert, In no apparent distress, Oriented x1 HEENT: Atraumatic Neck: Supple Respiratory: Clear to auscultation bilaterally Cardiovascular: No edema, Normal S1 S2 Capillary refill: <2 Seconds Gastrointestinal: Normal bowel sounds Musculoskeletal: No contractures, No erythema Integumentary: No breakdown, No significant lesion Neurological: Abnormal speech, Abnormal strength Laboratory Data at Discharge: WBC 9.80 K/uL (4.3-10.9) D 03/05/21 03:30 Hgb 11.3 g/dL (12.0-15.0) L 03/05/21 03:30 Hct 34.8 % (36.0-45.0) L 03/05/21 03:30 Plt Count 307 K/uL (152-406) D 03/05/21 03:30 PT 14.3 SECONDS (9.5-12.5) H 03/04/21 14:52 INR 1.24 03/04/21 14:52 APTT 64.1 SECONDS (24.3-36.9) H 03/04/21 14:52 Sodium 144 mmol/L (136-145) 03/05/21 03:30 Potassium 2.8 mmol/L (3.5-5.1) L* 03/05/21 03:30 BUN 16 mg/dL (7-18) 03/05/21 03:30 Creatinine 0.61 mg/dL (0.55-1.3) 03/05/21 03:30 Glucose 111 mg/dL (74-106) H 03/05/21 03:30 Magnesium 1.8 mg/dL (1.8-2.4) 03/05/21 03:30 Total Bilirubin 0.4 mg/dL (0.2-1.0) 03/05/21 03:30 AST 14 U/L (15-37) L 03/05/21 03:30 ALT 19 U/L (12-78) 03/05/21 03:30 Alkaline Phosphatase 71 U/L (45-117) 03/05/21 03:30 Triglycerides 138 mg/dL (<150) 03/05/21 03:30 Cholesterol 92 mg/dL (<200) 03/05/21 03:30 HDL Cholesterol 37 mg/dL (40-60) L 03/05/21 03:30 Cholesterol/HDL Ratio 2.49 03/05/21 03:30 Amylase 21 U/L (25-115) L 03/04/21 14:52 Lipase 59 U/L (73-393) L 03/04/21 14:52 Home Medications: Amlodipine Besylate [Norvasc] 10 mg PO DAILY 08/14/14 Clopidogrel Bisulfate [Plavix] 75 mg PO DAILY 08/14/14 Rosuvastatin Calcium [Crestor] 40 mg PO BEDTIME 08/14/14 Levothyroxine [Synthroid*] 125 mcg PO [id number] 07/26/16 Clonidine HCl [Catapres*] 1 tab TID 03/05/21 Metoprolol Succinate [Toprol Xl*] 1 tab BID 03/05/21 Nifedipine [Nifedipine ER] 1 tab DAILY 03/05/21 Physician Discharge Instructions: Please continue with care at [facility]. Case discussed with son who agrees with plan of care. Diet: [facility] Followup: David Richardson DO [Primary Care Provider] - Time spent managing pt's care (in minutes): 37
[2021-03-05] MEDS ORDERED: THIAMINE 200 MG/2 ML INJ IVP ONE (20:00)
[2021-03-05] MEDS: NA CHLORIDE 0.9% 1,000 ML IV SCH (20:14)
[2021-03-05] MEDS: ATORVASTATIN 40 MG TAB PO SCH (20:15)
[2021-03-05] MEDS ORDERED: FAMOTIDINE 20 MG TAB PO SCH (21:00)
--- NOTE | 2021-03-06 00:41 | CON ---
Date of Consultation: 03/05/2021 Time: 1929. Reason For Consultation: Confusion, stroke. History Of Present Illness: 70-year-old lady with a history of hypertension and vascular disease and family states recent left carotid endarterectomy in the spring of this year. She was in her usual s [place] [facility] until over the weekend when the son found her confused at home, not really making sens e, not speaking properly, so he brought her from home with him. She normally lives with a different relative and the patient did not improve, so they took her to the emergency department on Tuesday wit h complaints of dizziness and she had a full workup really. Brain MRI did not demonstrate a stroke a nd labs were all normal. She was observed and her blood pressure was quite high there, given some cl onidine, sent home, and referred for an outpatient workup and came to see me in my office yesterday a nd patient was confused and incoherent with some left christoph-neglect and she became diaphoretic and yaneli ble to walk, unable to drink, care for herself, so she was referred back to the emergency department yesterday. CT scan of the brain was unremarkable. UA demonstrated a slight UTI. White count has go ne up to 11,000. She had a lumbar puncture that was normal. No evidence for meningitis, admitted to the hospital. Repeat imaging today demonstrates new infarctions, bilateral watershed, right parieta l 7 cm AP and left 3 to 4 cm AP on diffusion imaging. MRA of bilateral carotid stenosis, 95% on the left, 80% on the right estimated. The patient has not improved at all. In fact, she may be actually slightly worse than yesterday. She is on dual anti-platelet therapy. [facility] She has had permissive hypertension most of the day, but still had blood pressures up 217/80s range, although it has been a little bit labile. White count is down to 9.8. COVID negative. CSF: 1 white cell, 0 red cell, protein 37, and glucose is 62. Consultation was requested. Past Medical History: As alluded to. Medications: Aspirin 81, Lipitor 40, ceftriaxone, clonidine 0.2 t.i.d., Plavix, Lovenox, Pepcid, fol ic acid, hydralazine as needed, Synthroid, Ativan as needed, Toprol, Procardia. Social History: Patient is normally independent with activities of daily living. Family History: Noncontributory. Review of Systems: There is significant change from patient's baseline. She is having some swallowing difficulties. Sh rosi has a cough. She has labile hypertension and UTI and neurologic history as noted. Physical Examination: Vital Signs: 98.3, 71, 173/72. General: Elderly lady, lying in bed, moaning spontaneously, firm sternal rub. Can get her to tell he r name 80% of the time. Does not consistently follow commands. Left gaze preference. Face is symme tric. Neck: Supple. Moves the right arm more than the left, but withdraws all 4 extremities to pain. Ref lexes are generally brisk. Toes are bilaterally upgoing. Gait and cerebellar not tested. Pertinent Laboratory Data: Creatinine 0.61. Sodium normal. Liver function tests normal. LDL of 27 . Procalcitonin less than 0.5. Thyroid normal. Imaging, as alluded to. Impression: Acute ischemic stroke, bilateral watershed distribution and symptomatic bilateral caroti d disease. Plan: We will start her on some maintenance fluids as well. She may need an arteriogram because of which she has a scar for a recent left endarterectomy, so there may just be a thrombus overlying eith er way. These are not real issues that can be resolved at this institution. There is no vascular sepulveda rgery. There is no arteriogram capabilities, so she is going to be transferred to higher level of ca re hopefully tonight. I would recommend an EEG as well, when she gets to the accepting facility. Pr ognosis is guarded and reviewed that with the family. Thank you for the consult. DEREJE/MARAL Voice ID: [id number] Report ID: [id number]
[2021-03-06] MEDS: HYDRALAZINE HCL 20 MG/ML VIAL IV PRN (04:13)
[2021-03-06 05:57] LABS: Absolute Lymphocytes (CBC) 1.5 K/uL (0.7-4.9); Basophils % 0.8 % (0-1.3); Hematocrit 35.7 % (36.0-45.0); Lymphocytes % 14.7 % (15.3-44.8); MPV 8.6 fL (7.6-11.3)
--- NOTE | 2021-03-06 06:10 | P.DS ---
Admission Date: 03/04/21 Discharge Date: 03/06/21 Primary Care Provider: Dr. Richardson Disposition[facility] Discharge Condition: FAIR Reason for Admission: Altered mental status, urinary tract infection Consultations: Neurology-Dr. Zhang Procedures: COVID: Negative MRA Neck: COMPARISON: No comparisons FINDINGS: Contrast enhance 2D [id number] MR angiography of the neck vessels was performed. A left aortic arch is present. Both subclavian arteries and common carotid arteries are patent. There is evidence of a severe stenosis involving the proximal left internal carotid artery resulting in a stenosis based on NASCET criteria estimated at 95-99% There is significant stenosis also seen involving the proximal right internal carotid artery estimated at 70-80% based on NASCET criteria. Antegrade flow is seen in both vertebral arteries with left-sided dominance. IMPRESSION: Severe stenosis of the proximal left internal carotid artery is suspected estimated at 95-99%. Moderate to severe stenosis of the right internal carotid artery suspected estimated at 70-80%. MRA brain: COMPARISON: Head Brain Wo Cont dated 03/04/2021 FINDINGS: 3D noncontrast [id number] MR angiography of the [place] was performed. No aneurysm, flow-limiting stenosis or vascular malformation is seen. Left vertebral artery is dominant. The visualized dural venous sinuses appear patent. IMPRESSION: No significant flow abnormality of the [place] is identified. MRI Brain: COMPARISON: MRA Head Wo Cont dated 03/05/2021; MRA Neck W/Wo Cont dated 03/05/2021; Brain W/Wo Cont dated 03/03/2021; Head Brain Wo Cont dated 03/04/2021 TECHNIQUE: Multi-sequence, multiplanar MR imaging of the brain was performed with contrast. FINDINGS: There is subtle restricted diffusion signal now present in the posterior right parietal lobe as well as the posterior left superior parietal lobe. These areas of abnormal signal are a new finding since 03/03/2021 MRI study. The area of abnormal diffusion restriction appears to involves primarily the cortex and on the right measures 7-8 cm in the anterior posterior length and on the left measuring 3-4 cm in anterior posterior length. These regions also demonstrate reduced ADC mapping signal. Subtle correlate FLAIR signal abnormality is seen in these regions. There is no evidence of acute hemorrhage, hydrocephalus, extra-axial fluid collection or midline shift.. No intracranial mass. . The midline structures are normally formed. Mastoid air cells and paranasal sinuses are clear. Post-contrast images show no abnormal enhancement to suggest tumor or infection. Right-sided DVA adjacent to the right posterolateral ventricle again noted. IMPRESSION: Development of abnormal DWI/ADC signal involving the posterior cortex of both parietal lobes, more significant on the right, suspicious for acute developing CVA. This is a new finding since 03/03/2021. CXR: COMPARISON: Chest Single View dated 03/03/2021; Chest Pa And Lat (2 Views) dated 07/20/2019; Chest Single View dated 11/04/2017; CHEST SINGLE VIEW dated 08/14/2014 FINDINGS: Portable technique limits examination quality. The lungs are grossly clear. The heart is normal in size. No displaced fractures. IMPRESSION: No acute intrathoracic process suspected. Medical problem list: Acute encephalopathy secondary to acute CVA with noted MRI showing abnormal signal involving the posterior cortex of both parietal lobes right greater than left with bilateral internal carotid stenosis with MRA of neck showing severe stenosis of the proximal left internal carotid artery estimated at 95 to 99% and moderate to severe stenosis of the right internal carotid artery estimated at 70 to 80% Acute encephalopathy also likely complicated with UTI Hypertension Hyperlipidemia Hypothyroidism CAD/PVD Anxiety GERD Brief History of Present Illness: 70-year-old female with history of CAD, carotid arterial disease, hypertension, hyperlipidemia, and hypothyroidism. Patient presented with altered mental status. Son reports that she had seen neurology earlier today. She was diaphoretic with altered mental status changes. Neurology called 911 for the patient to be evaluated in the emergency room. Upon evaluation in the ER, patient appeared confused. CT scan unremarkable. Patient was admitted for further evaluation and treatment. Hospital Course: Patient was admitted for altered mental status changes. Suspected toxic metabolic encephalopathy related to UTI was evaluated. Patient with history of CAD, hypertension, and carotid arterial disease. Due to her prior recent history of carotid surgery, MRI was performed with stroke protocol. MRI revealed development of abnormal signal involving the posterior cortex of both parietal lobes more significant on the right. This was suspicious for developing CVA. This was a new finding since 03/03/2021. MRA of brain unremarkable. MRA of neck showed severe stenosis in the proximal left internal carotid artery estimated at 95 to 99%. Moderate to severe stenosis in the right carotid artery was suspected and estimated at 70 to 80%. Neurology evaluated the patient. Patient continued to have altered mental status changes. Due to her recent evaluation by her conservation educator and CV surgery in [place], a decision was made to transfer patient for further possible vascular intervention due to her severe stenosis in her carotids and acute CVA. Patient will likely require angiogram with further intervention. Neurology also recommends to have EEG done at tertiary care center. Case was discussed with her conservation educator Dr. Carrillo and neurologyDr. Zhang. Both agreed patient needed to be transferred. Her conservation educator has made arrangements for the patient to be accepted at [facility] in [facility]. Patient has been accepted. Transfer was delayed overnight. Anticipate transfer today. Patient remains on aspirin, Plavix, folic acid, statin medication and blood pressure medications. Patient to be transferred to tertiary care center for further evaluation with vascular surgery. As mentioned above toxic metabolic encephalopathy also need to be considered. Urine culture pending at this time. Patient remains on Rocephin IV. Urine culture shows gram-negative rods. Await urine culture results. Blood culture negative. Patient with hypertension. Blood pressure stable at this time. Maintain blood pressure around 160-180 systolic. Currently on clonidine 0.2 mg 1 pill to 3 times a day, metoprolol XL 50 mg 1 pill twice daily, and nifedipine XL 30 mg daily. Further adjustment can be done at tertiary care center. Patient with GERD. At discharge patient will continue Protonix 40 mg daily. Patient with hypothyroidism. Patient will continue with levothyroxine 125 mcg daily. Patient currently on IV fluids. Continue with fluids at this time. Patient with hyperlipidemia. At discharge patient will continue with Lipitor 80 mg daily. Vital Signs/Physical Exam: Temp Pulse Resp BP Pulse Ox 97.2 F 62 16 185/62 H 98 03/06/21 04:50 03/06/21 04:50 03/06/21 04:50 03/06/21 04:50 03/06/21 04:50 General: Other (Patient still with confusion.) HEENT: Atraumatic Neck: Supple Respiratory: Clear to auscultation bilaterally Cardiovascular: Normal pulses, Regular rate/rhythm Gastrointestinal: Normal bowel sounds Neurological: Other (Patient confused. Patient responds to pain. Decreased weakness to the left upper and lower extremity.) Laboratory Data at Discharge: WBC 10.30 K/uL (4.3-10.9) 03/06/21 05:12 Hgb 11.7 g/dL (12.0-15.0) L 03/06/21 05:12 Hct 35.7 % (36.0-45.0) L 03/06/21 05:12 Plt Count 346 K/uL (152-406) 03/06/21 05:12 PT 14.3 SECONDS (9.5-12.5) H 03/04/21 14:52 INR 1.24 03/04/21 14:52 APTT 64.1 SECONDS (24.3-36.9) H 03/04/21 14:52 Sodium 144 mmol/L (136-145) 03/05/21 03:30 Potassium 3.8 mmol/L (3.5-5.1) 03/05/21 18:46 BUN 16 mg/dL (7-18) 03/05/21 03:30 Creatinine 0.61 mg/dL (0.55-1.3) 03/05/21 03:30 Glucose 111 mg/dL (74-106) H 03/05/21 03:30 Magnesium 1.8 mg/dL (1.8-2.4) 03/05/21 03:30 Total Bilirubin 0.4 mg/dL (0.2-1.0) 03/05/21 03:30 AST 14 U/L (15-37) L 03/05/21 03:30 ALT 19 U/L (12-78) 03/05/21 03:30 Alkaline Phosphatase 71 U/L (45-117) 03/05/21 03:30 Triglycerides 138 mg/dL (<150) 03/05/21 03:30 Cholesterol 92 mg/dL (<200) 03/05/21 03:30 HDL Cholesterol 37 mg/dL (40-60) L 03/05/21 03:30 Cholesterol/HDL Ratio 2.49 03/05/21 03:30 Amylase 21 U/L (25-115) L 03/04/21 14:52 Lipase 59 U/L (73-393) L 03/04/21 14:52 Home Medications: Amlodipine Besylate [Norvasc] 10 mg PO DAILY 08/14/14 Clopidogrel Bisulfate [Plavix] 75 mg PO DAILY 08/14/14 Rosuvastatin Calcium [Crestor] 40 mg PO BEDTIME 08/14/14 Levothyroxine [Synthroid*] 125 mcg PO [id number] 07/26/16 Clonidine HCl [Catapres*] 1 tab TID 03/05/21 Metoprolol Succinate [Toprol Xl*] 1 tab BID 03/05/21 Nifedipine [Nifedipine ER] 1 tab DAILY 03/05/21 Physician Discharge Instructions: Patient was admitted for altered mental status changes. Suspected toxic metabolic encephalopathy related to UTI was evaluated. Patient with history of CAD, hypertension, and carotid arterial disease. Due to her prior recent history of carotid surgery, MRI was performed with stroke protocol. MRI revealed development of abnormal signal involving the posterior cortex of both parietal lobes more significant on the right. This was suspicious for developing CVA. This was a new finding since 03/03/2021. MRA of brain unremarkable. MRA of neck showed severe stenosis in the proximal left internal carotid artery estimated at 95 to 99%. Moderate to severe stenosis in the right carotid artery was suspected and estimated at 70 to 80%. Neurology evaluated the patient. Patient continued to have altered mental status changes. Due to her recent evaluation by her conservation educator and CV surgery in [place], a decision was made to transfer patient for further possible vascular intervention due to her severe stenosis in her carotids and acute CVA. Patient will likely require angiogram with further intervention. Neurology also recommends to have EEG done at tertiary [facility] center. Case was discussed with her conservation educator Dr. Carrillo and neurologyDr. Zhang. Both agreed patient needed to be transferred. Her ca rdiologist has made arrangements for the patient to be accepted at [facility] in [facility]. Patient has been accepted. Transfer was delayed overnight. Anticipate transfer today. Patient remains on aspirin, Plavix, folic acid, statin medication and blood pressure medications. Patient to be transferred to tertiary [facility] center for further evaluation with vascular surgery. Care discussed with son yesterday who agrees with plan of care. As mentioned above toxic metabolic encephalopathy also need to be considered. Urine culture pending at this time. Patient remains on Rocephin IV. Urine culture shows gram-negative rods. Await urine culture results. Blood culture negative. Patient with hypertension. Blood pressure stable at this time. Maintain blood pressure around 160-180 systolic. Currently on clonidine 0.2 mg 1 pill to 3 times a day, metoprolol XL 50 mg 1 pill twice daily, and nifedipine XL 30 mg daily. Further adjustment can be done at tertiary care center. Patient with GERD. At discharge patient will continue Protonix 40 mg daily. Patient with hypothyroidism. Patient will continue with levothyroxine 125 mcg daily. Patient currently on IV fluids. Continue with fluids at this time. Patient with hyperlipidemia. At discharge patient will continue with Lipitor 80 mg daily. Diet: AHA Activity: Bedrest Followup: David Richardson DO [Primary Care Provider] - Time spent managing pt's care (in minutes): 55
[2021-03-06] MEDS: LEVOTHYROXINE SOD 0.125 MG TAB PO SCH (06:13)
[2021-03-06] MEDS: PANTOPRAZOLE 40MG TABLET PO SCH (06:14)
[2021-03-06] MEDS: METOPROLOL XL 50 MG TAB PO SCH (06:14)
[2021-03-06 06:16] LABS: ALT/SGPT 17 U/L (12-78); AST/SGOT 13 U/L (15-37); Albumin 3.3 g/dL (3.4-5.0); Alkaline Phosphatase 73 U/L (45-117); BUN Blood Urea Nitrogen 20 mg/dL (7-18); Bicarbonate 20 mmol/L (21-32); Bilirubin Total 0.4 mg/dL (0.2-1.0); Glucose Level 128 mg/dL (74-106); Magnesium 2.2 mg/dL (1.8-2.4); Potassium 3.4 mmol/L (3.5-5.1); Protein, Total 6.8 g/dL (6.4-8.2); Sodium Level 143 mmol/L (136-145)
[2021-03-06] MEDS: CEFTRIAXONE 1 GM/NS 50 ML 1 GM/50 ML BAG IV SCH (08:56)
[2021-03-06] MEDS: cloNIDine HCL 0.1 MG TAB PO SCH (08:57)
[2021-03-06] MEDS: CLOPIDOGREL 75 MG TABLET PO SCH (08:57)
[2021-03-06] MEDS: ENOXAPARIN 40 MG/0.4 ML SQ SCH (08:57)
[2021-03-06] MEDS: NIFEDIPINE XL 30 MG TABLET PO SCH (08:57)
[2021-03-06] MEDS: FOLIC ACID 1 MG TABLET PO SCH (08:57)
[2021-03-06] MEDS: ASPIRIN EC 81 MG TAB PO SCH (08:57)
[2021-03-06] MEDS ORDERED: POTASSIUM CL SA 10 MEQ TAB PO ONE (08:59)
[2021-03-06] MEDS ORDERED: POTASSIUM 25 MEQ EFFERV TAB PO ONE (09:00)
[2021-03-06 09:14] VITALS: BP 173/71; TEMP 97
[2021-03-06] MEDS: NA CHLORIDE 0.9% 1,000 ML IV SCH (10:08)
--- NOTE | 2021-03-06 10:10 | RAD REPORT ---
EXAM DESCRIPTION: USCarotid Artery Sfnoulkax66/15/2021 9:53 am CLINICAL HISTORY: CVA COMPARISON: MRA March 05, 2021 FINDINGS: The velocity of the right internal carotid artery equals 81 cm/sec. The right ICA/CCA rati o 1. The velocity of the left internal carotid artery equals 314 cm/sec. The left ICA/CCA ratio 1.9 Severe plaque left internal carotid artery. . Severe plaque proximal left external carotid artery. Mild plaque within the right common, right internal right external carotid arteries The vertebral arteries demonstrate antegrade flow IMPRESSION: Severe plaque left internal carotid artery NASCET criteria used. Mild 0-49% stenosis Moderate 50-69% stenosis Severe 70-99% stenosis
[2021-03-06] MEDS ORDERED: ATORVASTATIN 80 MG TAB PO SCH (21:00)
--- NOTE | 2021-03-09 07:22 | ECHO ---
HEIGHT: 4 ft 11 in WEIGHT: 175 lb 0 oz DATE OF STUDY: 03/06/[address]: Giovanny Rothman DO 2-DIMENSIONAL: YES M.MODE: YES DOPPLER: YES COLOR FLOW: YES TDS: NO PORTABLE: NO DEFINITY: NO BUBBLE STUDY: NO DIAGNOSIS: CEREBRAL VASCULAR ACCIDENT CARDIAC HISTORY: CATHERIZATION: NO SURGERY: NO PROSTHETIC VALVE: NO PACEMAKER: NO MEASUREMENTS (cm) DIASTOLIC (NORMALS) SYSTOLIC (NORMALS) IVSd 1.0 (0.6-1.2) LA Diam 3.1 (1.9-4.0) LVEF 65% LVIDd 4.0 (3.5-5.7) LVIDs 2.6 (2.0-3.5) %FS 35% LVPWd 1.1 (0.6-1.2) Ao Diam 2.9 (2.0-3.7) 2 DIMENSIONAL ASSESSMENT: RIGHT ATRIUM: NORMAL LEFT ATRIUM: NORMAL RIGHT VENTRICLE: NORMAL LEFT VENTRICLE: NORMAL TRICUSPID VALVE: NORMAL MITRAL VALVE: MITRAL ANNULAR CALCIFICATION PULMONIC VALVE: NORMAL AORTIC VALVE: NORMAL PERICARDIAL EFFUSION: NONE AORTIC ROOT: NORMAL LEFT VENTRICULAR WALL MOTION: NORMAL DOPPLER/COLOR FLOW: NORMAL COMMENTS: NORMAL LEFT VENTRICULAR SIZE AND FUNCTION. MITRAL ANNULAR CALCIFICATION. NO EFFUSION. NO WALL MOTION ABNORMALITY. NO THROMBUS OR VEGETATION. TECHNOLOGIST: Sumit MONTALVO
== END 2021-03-06 10:46 | disposition short-term general hospital (02) | DRG 64 ==
LOC: ER 14:27 → ERHOLD 18:53 → 4TH 20:20
PROVIDERS: ADMIT Family Medicine; ATTEND Family Medicine
PROC: 009U3ZX Drainage of Spinal Canal, Percutaneous Approach, Diagnostic (ICD-10-PCS; principal; 2021-03-04)
DX: I63.9 Cerebral infarction, unspecified (principal); G92.8 Other toxic encephalopathy; N39.0 Urinary tract infection, site not specified; I65.23 Occlusion and stenosis of bilateral carotid arteries; I25.10 Atherosclerotic heart disease of native coronary artery without angina pectoris; I10 Essential (primary) hypertension; E78.5 Hyperlipidemia, unspecified; E03.9 Hypothyroidism, unspecified; F41.9 Anxiety disorder, unspecified; K21.9 Gastro-esophageal reflux disease without esophagitis; Z20.822 Contact with and (suspected) exposure to COVID-19
CPT/HCPCS: 36415; 51702; 62270; 70450; 70544; 70549; 70553; 71045; 80048; 80053; 80061; 80076; 81003; 81015; 82150; 82550; 82553; 82945; 83605; 83690; 83735; 83880; 84132; 84145; 84157; 84439; 84443; 84484; 85025; 85610; 85730; 87040; 87070; 87077; 87086; 87088; 87186; 89050; 93005; 93306; 93880; 96365; 96375; 99284; 99285; A9577; J0360; J0696; J1650; J3370; J3411; J3475; J3480; J7030; J7050; U0003

== ENCOUNTER 2021-05-29 00:24 | Emergency (ER) | payer OTHER ==
--- OUTSIDE RECORDS SUMMARY | 2021-05-29 00:30 | XMS REPORT | Continuity of Care Document ---
:[address] [facility] t Address [address] [place] [address] Care Team Providers Name Role Phone Sara Panchal DO Primary Care Physician Nicol Attending Clinician Unavailable Guido De La Cruz Attending Clinician Unavailable Conor Pike Attending Clinician Unavailable ESSIE Attending Clinician Unavailable Kulwinder Panchal Attending Clinician [phone] Jose Carrillo Attending Clinician Unavailable Lab, Fam Pob I Attending Clinician Unavailable GARTH Attending Clinician Unavailable Doctor Unassigned, Name Attending Clinician Unavailable Ursula RODRIGUEZ, L Attending Clinician MERRY ORTIZ Attending Clinician Unavailable Guido De La Cruz Admitting Clinician Unavailable Jose Carrillo Admitting Clinician Unavailable Boncarbo Admitting Clinician Unavailable ESSIE Admitting Clinician Unavailable MERRY ORTIZ Admitting Clinician Unavailable Payers Payer Name Policy Type Policy Number Effective Date Expiration Date S day [facility] [id number] [facility] [id number] 2018 MEDICARE GOLD 00:00:00 Problems Condition Condition Condition Status Onset Resolution Last Treating Co mments Source Name Details Category Date Date Treatment Clinician Date Anemia Anemia Disease Active Methodi 02-17 st 00:00: Hospita 00 l Diverticul Diverticul Disease Active [facility] itis large itis large 01-09 Mary kes - intestine intestine 00:00: Medi emma 00 Center Venous Problem Active 2021-03-07 Memor ia hemangioma 01:35:22 l of brain Venous Murray n (disorder) hemangioma of brain (disorder) Active Problem 03/07/2021 [facility] Dizziness Problem Active 2021-03-07 Me moria (finding) 01:35:22 l [place] Dizziness (finding) Active Problem 03/07/2021 [facility] Delirium Problem Active 2021-03-07 Mem oria (disorder) 01:35:22 l Delirium Murray n (disorder) Active Problem 03/07/2021 [facility] Hypertensi Problem Active 2021-03-07 M emoria ve 01:35:22 l disorder, [place] systemic Hypertensi arterial ve (disorder) disorder, systemic arterial (disorder) Active Problem 03/07/2021 [facility] Hyperlipid Problem Active 2021-03-07 M emoria emia 01:35:22 l (disorder) [place] Hyperlipid emia (disorder) Active Problem 03/07/2021 [facility] Post-opera Problem Active 2021-03-07 M emoria tive 01:35:22 l hypothyroi Murray n dism Post-opera (disorder) tive hypothyroi dism (disorder) Active Problem 03/07/2021 [facility] Allergies, Adverse Reactions, Alerts Allergy Allergy Status Severity Reaction(s) Onset Inactive Treating Comm ents Source Name Type Date Date Clinician Codecarlie Propensi Active Itching, [facility] to Nausea Only 01-09 [facility] - adverse 00:00: Medical reaction 00 Center s Ciproflo Drug Active Nausea And [facility] xacin Allergy Vomiting 12-26 [facility] - 00:00: Medical 00 Center Levoflox Drug Active Nausea And [facility] acin Allergy Vomiting 12-26 [facility] - 00:00: Medical 00 Center CIPROFLO DRUG Active N/V [facility] XACIN INGREDI 12-26 ity of 00:00: [place] [address] Medical Branch LEVOFLOX DRUG Active N/V Univers ACIN INGREDI 12-26 ity of 00:00: [place] [address] Medical Branch Codeine Propensi Active Methodi ty to 11-15 st adverse 00:00: Hospita reaction 00 l s to drug codeine DA Active SV [facility] 01-15 00:00: [address] codeine DA Active SV unknown [facility] 01-15 00:00: [address] CODEINE DRUG Active Med NAUSEA ONLY Univ ers INGREDI 10-25 ity of 00:00: [address] Branch codeine codeine Active Memoria l Anton Levothyr Adverse Active Info Not [facility] oxine Reaction Available [facility] Ciproflo Adverse Active Info Not [facility] xacin Reaction Available [facility] Family History Family Member Diagnosis Comments Start Date Stop Date Source Natural brother Diabetes [facility] Natural brother Heart disease Method [facility] Social History Social Habit Start Date Stop Date Quantity Comments Source Tobacco use and 2018-03-30 2018-03-30 Never used [facility] exposure 00:00:00 00:00:00 Hospital Alcohol intake 2018-03-30 2018-03-30 Current [facility] 00:00:00 00:00:00 non-drinker of Hospital alcohol (finding) Sex [birth year] [facility] 00:00:00 00:00:00 Hospital Smoking Status Start Date Stop Date Source Social History 2021-03-04 18:02:2021-03-04 18:02:09 [facility] Never smoker [facility] Hosp al Medications Ordered Filled Start Stop Current Ordering Indication Dosage Frequency Signature Comments Components Source Medication Medication Date Date Medication? Clinician (SIG) Name Name NIFEdipine 2020-05 Yes 30 mg = 1 Me moria (Eqv-Adalat 0-13 tab, PO, l CC) 30 mg 18:42: Daily, 0 Herm anirudh oral 00 Refill(s) tablet, extended release NIFEdipine 2020-05 Yes 30 mg = 1 Me moria (Eqv-Adalat 0-13 tab, PO, l CC) 30 mg 18:42: Daily, 0 Herm anirudh oral 00 Refill(s) tablet, extended release NIFEdipine 2020-05 Yes 30 mg = 1 Me moria (Eqv-Adalat 0-13 tab, PO, l CC) 30 mg 18:42: Daily, 0 Herm anirudh oral 00 Refill(s) tablet, extended release Esomeprazol 2020-05 Yes 40 mg = 1 M emoria e 40 MG 0-13 cap, PO, l Enteric 18:41: Daily, # Murray n Coated 00 30 cap, 0 Capsule Refill(s) Esomeprazol 2020-05 Yes 40 mg = 1 M emoria e 40 MG 0-13 cap, PO, l Enteric 18:41: Daily, # [place] n Coated 00 30 cap, 0 Capsule Refill(s) Esomeprazol 2020-05 Yes 40 mg = 1 M emoria e 40 MG 0-13 cap, PO, l Enteric 18:41: Daily, # [place] n Coated 00 30 cap, 0 Capsule Refill(s) Adult 2020-05 Yes 81 mg = 1 Memoria Aspirin 0-13 tab, PO, l Regimen 81 18:36: Daily, 0 Her dickens mg oral 00 Refill(s) delayed release tablet Adult 2020-05 Yes 81 mg = 1 Memoria Aspirin 0-13 tab, PO, l Regimen 81 18:36: Daily, 0 Her dickens mg oral 00 Refill(s) delayed release tablet Adult 2020-05 Yes 81 mg = 1 Memoria Aspirin 0-13 tab, PO, l Regimen 81 18:36: Daily, 0 Her dickens mg oral 00 Refill(s) delayed release tablet Clonidine 2020-05 Yes 0 Memoria Hydrochlori 0-13 Refill(s) l de 0.2 MG 18:16: Anton Oral Tablet 00 Clonidine 2020-05 Yes 0 Memoria Hydrochlori 0-13 Refill(s) l de 0.2 MG 18:16: [place] Oral Tablet 00 Clonidine 2020-05 Yes 0 Memoria Hydrochlori 0-13 Refill(s) l de 0.2 MG 18:16: [place] Oral Tablet 00 clopidogrel Yes 75 mg = 1 M emoria 75 mg oral 3-25 tab, PO, l tablet 19:25: Daily, 0 [place] 00 Refill(s) clopidogrel Yes 75 mg = 1 M emoria 75 mg oral 3-25 tab, PO, l tablet 19:25: Daily, 0 Anton 00 Refill(s) Lorazepam 1 2020-0 Yes 1 mg = 1 Me moria MG Oral 3-25 tab, PO, l Tablet 19:25: TID, 0 [place] 00 Refill(s) losartan 50 2020-0 Yes 50 mg = 1 M emoria mg oral 3-25 tab, PO, l tablet 19:25: Daily, # Anton 00 30 tab, 0 Refill(s) rosuvastati 2020-0 Yes 40 mg = 1 M emoria n 40 mg 3-25 cap, PO, l oral 19:25: Daily, 0 [place] capsule 00 Refill(s) doxepin 10 2020-0 Yes 10 mg = 1 Me moria mg oral 3-25 cap, PO, l capsule 19:25: Bedtime, # Herm anirudh 00 30 cap, 0 Refill(s) Lorazepam 1 2020-0 Yes 1 mg = 1 Me moria MG Oral 3-25 tab, PO, l Tablet 19:25: TID, 0 [place] 00 Refill(s) losartan 50 2019-0 Yes 50 mg = 1 M emoria mg oral 3-25 tab, PO, l tablet 19:25: Daily, # [place] 00 30 tab, 0 Refill(s) rosuvastati 2020-0 Yes 40 mg = 1 M emoria n 40 mg 3-25 cap, PO, l oral 19:25: Daily, 0 [place] capsule 00 Refill(s) doxepin 10 2020-0 Yes [...] tab, PO, l Tablet 19:25: TID, 0 Anton 00 Refill(s) losartan 50 2020-0 Yes 50 mg = 1 M emoria mg oral 3-25 tab, PO, l tablet 19:25: Daily, # [place] 00 30 tab, 0 Refill(s) rosuvastati 2020-0 [...] tab, PO, l Tablet 19:25: TID, 0 Anton 00 Refill(s) losartan 50 2020-0 Yes 50 mg = 1 M emoria mg oral 3-25 tab, PO, l tablet 19:25: Daily, # [place] 00 30 tab, 0 Refill(s) rosuvastati 2020-0 [...] tab, PO, l tablet 19:25: Daily, 0 [place] 00 Refill(s) Lorazepam 1 2020-0 Yes 1 mg = 1 Me moria MG Oral 3-25 tab, PO, l Tablet 19:25: TID, 0 Anton 00 Refill(s) losartan 50 2020-0 Yes 50 [...] tab, PO, l Tablet 19:25: TID, 0 [place] 00 Refill(s) losartan 50 2020-0 Yes 50 mg = 1 M emoria mg oral 3-25 tab, PO, l tablet 19:25: Daily, # [place] 00 30 tab, 0 Refill(s) rosuvastati 2020-0 Yes 40 mg = 1 M emoria n 40 mg 3-25 cap, PO, l oral 19:25: Daily, 0 [place] capsule 00 Refill(s) doxepin 10 2020-0 Yes 10 mg = 1 Me moria mg oral 3-25 cap, PO, l capsule 19:25: Bedtime, # Herm anirudh 00 30 cap, 0 Refill(s) Furosemide 2020-0 Yes 40 mg = 1 Me moria 40 MG Oral 3-25 tab, PO, l Tablet 18:46: Daily, 0 [place] 00 Refill(s) levothyroxi 2020-0 Yes 100 Memori a ne 100 mcg 3-25 microgram l (0.1 mg) 18:46: = 1 tab, Lupe nn oral tablet 00 PO, Daily, 0 Refill(s) Amlodipine 2020-0 Yes 10 mg = 1 Me moria 10 MG Oral 3-25 tab, PO, l Tablet 18:46: Daily, # [place] [Norvasc] 00 30 tab, 1 Refill(s) Hydralazine [...] tab, PO, l Tablet 18:46: Daily, 0 [place] 00 Refill(s) levothyroxi 2020-0 Yes 100 Memori a ne 100 mcg 3-25 microgram l (0.1 mg) 18:46: = 1 tab, Lupe nn oral tablet 00 PO, Daily, 0 Refill(s) Amlodipine 2020-0 Yes 10 mg = 1 Me moria 10 MG Oral 3-25 tab, PO, l Tablet 18:46: Daily, # Anton [Norvasc] 00 30 tab, 1 Refill(s) Hydralazine [...] tab, PO, l Tablet 18:46: Daily, 0 [place] 00 Refill(s) levothyroxi 2020-0 Yes 100 Memori a ne 100 mcg 3-25 microgram l (0.1 mg) 18:46: = 1 tab, Lupe nn oral tablet 00 PO, Daily, 0 Refill(s) Amlodipine 2020-0 Yes 10 mg = 1 Me moria 10 MG Oral 3-25 tab, PO, l Tablet 18:46: Daily, # [place] [facility] 00 30 tab, 1 Refill(s) Hydralazine 2020-0 [...] tab, PO, l Tablet 18:46: Daily, 0 [place] 00 Refill(s) levothyroxi 2020-0 Yes 100 Memori a ne 100 mcg 3-25 microgram l (0.1 mg) 18:46: = 1 tab, Lupe nn oral tablet 00 PO, Daily, 0 Refill(s) Amlodipine 2020-0 Yes 10 mg = 1 Me moria 10 MG Oral 3-25 tab, PO, l Tablet 18:46: Daily, # [facility] tab, 1 Refill(s) Hydralazine 2020-0 [...] tab, PO, l Tablet 18:46: Daily, 0 [place] 00 Refill(s) levothyroxi 2020-0 Yes 100 Memori a ne 100 mcg 3-25 microgram l (0.1 mg) 18:46: = 1 tab, Lupe nn oral tablet 00 PO, Daily, 0 Refill(s) Amlodipine 2020-0 Yes 10 mg = 1 Me moria 10 MG Oral 3-25 tab, PO, l Tablet 18:46: Daily, # Anton [[facility] 00 30 tab, 1 Refill(s) Hydralazine 2020-0 [...] tab, PO, l Tablet 18:46: Daily, 0 [place] 00 Refill(s) levothyroxi 2020-0 Yes 100 Memori a ne 100 mcg 3-25 microgram l (0.1 mg) 18:46: = 1 tab, Lupe nn oral tablet 00 PO, Daily, 0 Refill(s) Amlodipine 2020-0 Yes 10 mg = 1 Me moria 10 MG Oral 3-25 tab, PO, l Tablet 18:46: Daily, # Anton [Norvasc] 00 30 tab, 1 Refill(s) Hydralazine Yes 100 mg = 1 Memoria Hydrochlori 3-25 tab, PO, l de 100 MG 18:46: TID, # Werner dickens Oral Tablet 00 tab, 3 Refill(s) metoprolol Yes 50 mg = 1 Me moria 50 mg oral 3-25 tab, PO, l tablet, 18:46: Daily, 0 Murray n extended 00 Refill(s) release ferrous 2017-05 Yes TAKE 1 Methodi sulfate 325 0-[address] (65 FE) MG 00:00: MOUTH ONCE H ospita EC tablet 00 DAILY WITH l BREAKFAST rosuvastati Yes 10mg QD Take [address] n (CRESTOR) 8-22 by mouth Luke s - 20 MG 18:04: nightly . Medical tablet 59 Center irbesartan Yes 300mg QD Take [address] (AVAPRO) 8-22 mg by [facility] - 300 MG 18:04: mouth Medical tablet 59 daily . [place] clopidogrel Yes 75mg QD Take [address] (PLAVIX) 75 8-22 by mouth Luke s - mg tablet 18:04: daily. Medica l 59 Center levothyroxi Yes 100ug Take [address] ne 8-22 mcg by [facility] - (SYNTHROID, 18:04: mouth Medic al LEVOTHROID) 59 Every Center 100 MCG morning on tablet an empty stomach. venlafaxine Yes 150mg QD Take 150 C HI [...] Medical tablet 59 Center hydrALAZINE Yes 50mg Q.[id number] Take [address] (APRESOLINE 8-22 [id number] by mouth 3 [facility] - ) 50 MG 18:04: 3D (three) Medical tablet 59 times Center daily. aspirin 81 Yes 81mg QD Take [address] MG EC 8-22 by mouth [facility] - tablet 18:04: daily. Medical 59 Center rosuvastati 2017-0 Yes 10mg QD Take [address] n (CRESTOR) 8-22 by mouth Luke s - 20 MG 18:04: nightly . Medical tablet 59 Center irbesartan Yes 300mg QD Take [address] (AVAPRO) 8-22 mg by [facility] - 300 MG 18:04: mouth Medical tablet 59 daily . Center clopidogrel Yes 75mg QD Take [address] (PLAVIX) 75 8-22 by mouth Luke s - mg tablet 18:04: daily. Medica l 59 Center levothyroxi Yes 100ug Take [address] ne 8-22 mcg by [facility] - (SYNTHROID, 18:04: mouth Medic al LEVOTHROID) 59 Every Center 100 MCG morning on tablet an empty stomach. venlafaxine Yes 150mg QD Take [address] (EFFEXOR-XR 8-22 mg by [facility] - ) 150 MG 24 18:04: mouth Medic al hr capsule 59 nightly . Cent er metoprolol 0 Yes 50mg Q.5D Take [address] (LOPRESSOR) 8-22 by mouth 2 Mary kes - 50 MG 18:04: (two) Medical tablet 59 times Center daily. amLODIPine Yes 10mg QD Take [address] (NORVASC) 8-22 by mouth [facility] - 10 MG 18:04: nightly . Medical tablet 59 Center hydrALAZINE 0 Yes 50mg Q.[id number] Take [address] (APRESOLINE 8-22 [id number] by mouth 3 [facility] - ) 50 MG 18:04: 3D (three) Medical tablet 59 times Center daily. aspirin 81 Yes 81mg QD Take [address] MG EC 8-22 by mouth [facility] - tablet 18:04: daily. Medical 59 Center Levothyroxi Levothyroxi Yes Leora [address] ne Sodium ne Sodium [place] in the [facility] - morning on Memoria an empty l stomach Outpati ent Clinics Vital Signs Vital Name Observation Time Observation Value Comments Source Systolic (mm Hg) 2021-03-04 18:01:00 Rebel rial Anton Diastolic (mm Hg) 2021-03-04 18:01:00 Mem orial [place] Heart Rate 2021-03-04 18:01:00 [facility] [place] Respitory Rate 2021-03-04 18:01:00 Memori al [place] Systolic (mm Hg) 2019-08-15 18:43:00 Rebel rial Anton Diastolic (mm Hg) 2019-08-15 18:43:00 Mem orial [place] Heart Rate 2019-08-15 18:43:00 [facility] [place] Respitory Rate 2019-08-15 18:43:00 Memori al Anton Height 2019-08-15 18:43:00 147.32 cm [facility] [place] Weight 2019-08-15 18:43:00 [facility] [place] BMI Calculated 2019-08-15 18:43:00 Memori al [place] Procedures Procedure Date / Time Performed Performing Clinician Sour e [id number] 2021-03-12 00:00:00 [facility] [id number] 2021-03-12 00:00:00 [facility] [id number] 2021-03-12 00:00:00 [facility] [id number] 2020-08-22 00:00:00 [facility] [id number] 2020-08-22 00:00:00 [facility] [id number] 2020-08-22 00:00:00 [facility] [id number] 2020-08-22 00:00:00 [facility] Carpal tunnel release [facility] Plan of Care Planned Activity Planned Date Details Comments Source Future Scheduled Test COLONOSCOPY SCREENING [facility] [code = COLONOSCOPY SCREENING] Future Scheduled Test SHINGLES VACCINES (#1) [facility] [code = SHINGLES VACCINES (#1)] Future Scheduled Test 65+ PNEUMOCOCCAL [facility] VACCINE (1 of - PPSV23) [code = 65+ PNEUMOCOCCAL VACCINE (1 of 1 - PPSV23)] Future Scheduled Test INFLUENZA VACCINE [code [facility] = INFLUENZA VACCINE] Future Scheduled Test COVID-19 VACCINE (1) [facility] [code = COVID-19 VACCINE (1)] Future Scheduled Test Hepatitis C screening [facility] (procedure) [code = 901895071] Future Scheduled Test BREAST CANCER SCREENING [facility] [code = BREAST CANCER SCREENING] Encounters Start End Encounter Admission Attending Care Care Encounter Source Date/Time Date/Time Type Type Clinicians Facility Department ID 2021-03-26 Inpatient Nicol, HCAWU HCAWU [id number] [facility] 09:00:00 Rene [id number] [facility] 2021-03-06 Inpatient LYNNE EvansWU TELE [id number] [facility] 15:25:00 Josefa 78 [facility] 2020-08-22 Inpatient LYNNE PikeWU HCAWU [id number] [facility] 12:45:00 Nick [id number] [facility] 2021-03-11 2021-04-03 Inpatient UR Nicol, LYNNEWU REHA [id number] [facility] 22:00:00 13:14:00 Rene 77 [facility] 2021-03-11 2021-04-03 Inpatient UR Nicol, HCAWU REHA [id number] [facility] 22:00:00 13:14:00 Rene [id number] [facility] 2021-03-20 2021-03-20 Outpatient STLMLC STLC [id number] [facility]00 Nate [facility]inas Outpat[facility] ent Clinics 2021-03-06 2021-03-11 Inpatient LYNNE EvansWU TELE [id number] [facility] 12:13:00 21:50:00 Josefa 99 [facility] 2021-03-06 2021-03-11 Inpatient ANDREY De La Cruz, LYNNEWU TELE [id number] [facility] 12:13:00 21:50:00 Josefa [id number] [facility] 2021-03-04 2021-03-05 Outpatient nullFlavo MNA [id number] Memoria 18:00:00 04:59:59 r Neurology 02 l [place] 2021-03-04 2021-03-04 Outpatient [facility]LMLC [facility] [id number] [facility] 2021-03-03 2021-03-03 Outpatient [facility]LML[facility] [id number] [facility] 2021-02-24 2021-02-24 Outpatient STLMLC STLMLC [id number] [facility] 2021-02-12 2021-02-12 Outpatient [facility]LMLC [facility] [id number] [facility] 2021-01-15 2021-01-15 Outpatient [facility] [id number] [facility] 2021-01-15 2021-01-15 Outpatient [facility] [id number] [facility] 2020-12-01 2020-12-01 Outpatient [facility]LML[facility] [id number] [facility] 2020-11-07 2020-11-07 Outpatient [facility]LML[facility] [id number] [facility] 2020-09-18 2020-09-18 Outpatient ERICKSON_R [facility] [id number] [place] 05:40:00 05:40:00 429 [facility] 2020-09-18 2020-09-18 Outpatient Abdulkadir [facility] [id number] 00:00:00 00:00:00 Harry [id number] Kulwinder [id number] 2020-08-09 2020-08-09 Outpatient Gerardo, LYNNEWU SURG [id number] [facility] 09:30:00 09:30:00 [facility] [id number] [facility] 2020-08-05 2020-08-05 Outpatient ERICKSON_R [facility] [id number] [place] 10:12:00 10:12:00 316 [facility] 2020-08-04 2020-08-04 Outpatient ERICKSON_R [facility] [id number] [place] 04:58:00 04:58:00 315 [facility] 2020-08-04 2020-08-04 Outpatient Abdulkadir [facility] [id number] 00:00:00 00:00:00 Harry [id number] Kulwinder [id number] 2020-07-25 2020-07-25 Outpatient ERICKSON_R [facility] [id number] [place] 04:09:00 04:09:00 305 [facility] Clin[facility] 2020-07-25 2020-07-25 Outpatient Abdulkadir [facility] [id number] 00:00:00 00:00:00 Harry [id number] Kulwinder [id number] 2020-07-08 2020-07-08 Outpatient ERICKSON_R [facility] [id number] [place] 12:08:00 12:08:00 216 [facility] 2020-06-30 2020-06-30 Outpatient ERICKSON_R [facility] [id number] [place] 05:33:00 05:33:00 208 Commun i ty Hosp[facility] Clinics 2020-06-26 2020-06-26 Outpatient ERICKSON_R [facility] [id number] [place] 12:25:00 12:25:00 204 Commun i ty Hosp[facility] Clinics 2020-06-23 2020-06-23 Outpatient ERICKSON_R [facility] [id number] [place] 04:11:00 04:11:00 201 Commun i ty [facility] Clinics 2020-06-23 2020-06-23 Outpatient Panchal, [facility] [id number] 00:00:00 00:00:00 Harry [id number] Kulwinder [id number] 2020-05-22 2020-05-22 Outpatient ERICKSON_R [facility] 84 [place] 12:57:00 12:57:00 231 Commun i ty [facility] Clin[facility] 2020-05-20 2020-05-20 Outpatient ERICKSON_R [facility] [id number] [place] 03:17:00 03:17:00 229 Commun i ty H[facility] Clinics 2020-04-04 2020-04-04 Laboratory Lab, [facility] [id number] 17:37:06 17:57:06 Only Fam Pob I Health [id number] [place] [id number] Professio [id number] nal [address] 2020-04-04 2020-04-04 Outpatient R [facility] [id number] Univers 17:40:00 17:40:00 [id number] [facility] 2020-04-04 2020-04-04 Outpatient R GARTH [facility] [id number] Univers 17:40:00 17:40:00 KRAIG [facility] 2019-09-27 2019-09-27 Ambulatory nullFlavo MNA [id number] Memoria 14:45:00 14:45:00 Pre-Reg r Neurology 01 l [place] 2019-08-23 2019-08-23 [facility] [id number] 14:06:00 14:06:00 t [facility] l Medicine Outpati ent Clinics 2019-08-21 2019-08-21 Orders Doctor KRAIG [id number] 00:00:00 00:00:00 Only Unassigned, MARIEL [id number] [facility] [id number] 2019-08-15 2019-08-16 Outpatient nullFlavo MNA [id number] [facility] 19:00:00 04:59:59 r Neurology 00 l [place] 2019-07-23 2019-07-23 [facility] [id number] [facility] 15:30:00 15:30:00 t Specialty/U Mary kes - Specialty rology Memori a /Urology Clinic l Clinic Outpati ent Clinics 2019-07-17 2019-07-17 Outpatient Brazazael Murot [id number] 10:30:00 10:30:00 t Specialty/U Mary curry - Specialty rology [facility] a /Urology Clinic l Clinic Outpati ent Clinics 2019-06-18 2019-06-18 RefVICTORIA Martinez [id number] 00:00:00 00:00:00 Chandu Salinas [facility] [id number] Surgical [id number] Specialti [id number] es 198 [place] 2019-06-05 2019-06-05 Reffatuma Vergara [facility] [id number] 00:00:00 00:00:00 Chandu Salinas [facility] [id number] Surgical [id number] Specialti [id number] es 198 [place] Results Test Description Test Time Test Comments Results Result Comments Source COVID 19 Asymptomatic IH AG 2021-04-02 13:55:00 Test Item Value Reference Range Interpretation Comme nts COVID 19 Asymptomatic IH AG NEGATIVE Negative "Negative results from patients (test code = COVNONPUIAG) wi th symptom onset beyondfive days, should be breonna roslyn as presumptive, andconfirmation with a molecular assay, if neces rebel forpatient management may be performed. Negative result s do notrule out COVID-19 and sh ould not be used as the sole basisf or treatment or patient managem ent decisions, includinginfect ion control decisions. Nega tive results should beconsidered in the context of a patients recent exposures,history, and the presenc e of clinical signs and symptomscon sistent with COVID-19.This t est detects both viable andnon-v iable SARS-CoV and SARS CoV-2.Test performance dependson the a mount of virus (antigen) in th e sample." BASIC METABOLIC [id number] 05:53:00 Test Item Value Reference Range Interpretation Comments SODIUM (test code = 140 MMOL/L 137-145 N NA) POTASSIUM (test code = 3.5 MMOL/L 3.5-5.1 N K) CHLORIDE (test code = 111 MMOL/L 98-107 H CL) CARBON DIOXIDE (test 20 MMOL/L 22-30 L code = CO2) GLUCOSE (test code = 108 MG/DL 74-106 H GLU) BLOOD UREA NITROGEN 19 MG/DL 7-17 H (test code = BUN) GLOMERULAR FILTRATION > 60 Report ing units: RATE (test code = GFR) ml/mi n/1.73 m2 (Modified MDRD Formula)Referen ce Range: > or = 6 0 ml/min/1.73 m2 CREATININE (test code 0.50 MG/DL 0.52-1.04 L = CREAT) CALCIUM (test code = 9.9 MG/DL 8.4-10.2 N CA) CBC W/AUTO [id number] 05:45:00 Test Item Value Reference Range Interpretation Comments WHITE BLOOD CELL (test code = 11.1 K/MM3 3.8-9.8 H WBC) RED BLOOD CELL (test code = 4.01 M/MM3 3.58-4.97 N RBC) HEMOGLOBIN (test code = HGB) 9.6 G/DL 11.2-14.9 L HEMATOCRIT (test code = HCT) 30.7 % 33.2-43.5 L MEAN CELL VOLUME (test code = 77 fL 80.7-99.1 L MCV) MEAN CELL HGB (test code = MCH) 23.9 pg 27.0-34.1 L MEAN CELL HGB CONCETRATION 31.3 % 32.2-35.7 L (test code = MCHC) RED CELL DISTRIBUTION WIDTH 15.8 % 12.1-15.2 H (test code = RDW) PLATELET COUNT (test code = 527 K/MM3 129-368 H PLT) MEAN PLATELET VOLUME (test code 9.9 fl 7.4-10.4 N = MPV) NEUTROPHIL % (test code = NT%) 69.5 % 43-75 N IMMATURE GRANULOCYTE % (test 2.4 % 0.0-2.0 H code = IG%) LYMPHOCYTE % (test code = LY%) 15.7 % 14-44 N MONOCYTE % (test code = MO%) 9.7 % 4-13 N EOSINOPHIL % (test code = EO%) 2.2 % 0-6 N BASOPHIL % (test code = BA%) 0.5 % 0-2 N NUCLEATED RBC % (test code = 0.0 % 0-1.0 N NRBC%) NEUTROPHIL # (test code = NT#) 7.71 K/mm3 2.0-7.6 H IMMATURE GRANULOCYTE # (test 0.27 x10 3/uL 0-0.03 H code = IG#) LYMPHOCYTE # (test code = LY#) 1.74 K/mm3 1.0-3.8 N MONOCYTE # (test code = MO#) 1.08 K/mm3 0.1-0.8 H EOSINOPHIL # (test code = EO#) 0.24 K/mm3 0.0-0.2 H BASOPHIL # (test code = BA#) 0.06 K/mm3 0.0-0.2 N NUCLEATED RBC # (test code = 0.00 K/mm3 0.0-0.1 N NRBC#) PLATELET [id number] 05:55:00 Test Item Value Reference Range Interpretation Comments PLATELET COUNT (test code = PLT) 561 K/MM3 129-368 H [id number] 05:45:00 Test Item Value Reference Range Interpretation Comments HEMOGLOBIN (test code = HGB) 9.9 G/DL 11.2-14.9 L - XR HIP W/PEL UNI 2+V [id number] 16:19:00 [facility] 1950 Sex: F Patient Name: RORY MATHEWS Unit No: [id number] EXAMS: CPT CODE: [id number] XR HIP W/PEL UNI 2+[place] [address] X-ray left hip. INDICATION: Pain FINDINGS: No priors. No evidence of an acute fracture or dislocation. Femoral head contour is well preserved. Mild to moderate bilateral joint space narrowing. No significant soft tissue abnormality seen. IMPRESSION: 1. No acute osseous abnormality 2. 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 at 1619 Reported and signed by: Ambrosio Molina M.D. CC: Technologist: Sydney Castillo RT Transcrpt Date/Tm/Trnsp: 03/27/2021 (2219) [id number] Orig Print D/T: S: 03/27/2021 (6965) [facility] NAME:RORY MATHEWS [address] [address] PHYS: [place] [address] : 1950 AGE: 70 SEX: F LOC: Z.313 A PHONE #: [phone] EXAM DATE: 03/27/2021 STATUS: ADM IN FAX #: [phone] RADIOLOGY NO: PAGE 1 Signed ReportBUN [id number] 16:37:00 Test Item Value Reference Range Interpretation Comments BLOOD UREA NITROGEN 21 MG/DL 7-17 H (test code = BUN) GLOMERULAR FILTRATION > 60 Report ing units: RATE (test code = GFR) ml/mi n/1.73 m2 (Modified MDRD Formula)Referen ce Range: > or = 6 0 ml/min/1.73 m2 CREATININE (test code 0.50 MG/DL 0.52-1.04 L = CREAT) PLATELET [id number] 10:05:00 Test Item Value Reference Range Interpretation Comments PLATELET COUNT (test code = PLT) 661 K/MM3 129-368 H [id number] 05:40:00 Test Item Value Reference Range Interpretation Comments HEMOGLOBIN (test code = HGB) 10.4 G/DL 11.2-14.9 L - XR HIP W/PEL UNI 2+V [id number] 14:38:00 [facility] : 1950 Sex: F Patient Name: RORY MATHEWS Unit No: [id number] EXAMS: CPT CODE: [id number] XR HIP W/PEL UNI 2+[place] [address] X-ray right hip. INDICATION: Pain FINDINGS: No priors. No evidence of an acute fracture or dislocation. Femoral head contour is well preserved. Mild to moderate joint space narrowing. No significant soft tissue abnormality seen. IMPRESSION: 1. No acute osseous abnormality. 2. Mild to moderate arthritis. at 1438 Reported and signed by: Ambrosio Molina M.D. CC: Namrata Parker MD Technologist: Sydney Castillo RT Transcrpt Date/Tm/Trnsp: 03/22/2021 (1438) [id number] Orig Print D/T: S: 03/22/2021 (1441) [facility] NAME: RORY MATHEWS [address] PHYS: [id number] - [place] [address] : 1950 AGE: 70 SEX: F LOC: Z.313 A PHONE #: [phone] EXAM DATE: 03/22/2021 STATUS: ADM IN FAX #: [phone] RADIOLOGY NO: PAGE 1 Signed ReportGLUCOSE BEDSIDE TESTING 2021-03-21 11:50:00 Test Item Value Reference Range Interpretation Comments GLUCOSE BEDSIDE TESTING (test code 104 MG/DL 60-99 H = GLUBED) BASIC METABOLIC [id number] 16:41:00 Test Item Value Reference Range Interpretation Comments SODIUM (test code = 135 MMOL/L 137-145 L NA) POTASSIUM (test code = 3.8 MMOL/L 3.5-5.1 N K) CHLORIDE (test code = 103 MMOL/L 98-107 N CL) CARBON DIOXIDE (test 25 MMOL/L 22-30 N code = CO2) GLUCOSE (test code = 123 MG/DL 74-106 H GLU) BLOOD UREA NITROGEN 22 MG/DL 7-17 H (test code = BUN) GLOMERULAR FILTRATION > 60 Report ing units: RATE (test code = GFR) ml/mi n/1.73 m2 (Modified MDRD Formula)Referen ce Range: > or = 6 0 ml/min/1.73 m2 CREATININE (test code 0.60 MG/DL 0.52-1.04 N = CREAT) CALCIUM (test code = 8.8 MG/DL 8.4-10.2 N CA) UNABLE TO DRAW BLOOD, REASON: HARDSTICKNOTIFIED PATIENT CARE STAFF: JULIANO 03/12/21 AT 1426 BY Mary Gonzales AnCBC W/AUTO [id number] 16:23:00 Test Item Value Reference Range Interpretation Comments WHITE BLOOD CELL (test code = 11.2 K/MM3 3.8-9.8 H WBC) RED BLOOD CELL (test code = 4.35 M/MM3 3.58-4.97 N RBC) HEMOGLOBIN (test code = HGB) 10.4 G/DL 11.2-14.9 L HEMATOCRIT (test code = HCT) 34.3 % 33.2-43.5 N MEAN CELL VOLUME (test code = 79 fL 80.7-99.1 L MCV) MEAN CELL HGB (test code = MCH) 23.9 pg 27.0-34.1 L MEAN CELL HGB CONCETRATION 30.3 % 32.2-35.7 L (test code = MCHC) RED CELL DISTRIBUTION WIDTH 15.9 % 12.1-15.2 H (test code = RDW) PLATELET COUNT (test code = 518 K/MM3 129-368 H PLT) MEAN PLATELET VOLUME (test code 10.1 fl 7.4-10.4 N = MPV) NEUTROPHIL % (test code = NT%) 72.4 % 43-75 N IMMATURE GRANULOCYTE % (test 0.8 % 0.0-2.0 N code = IG%) LYMPHOCYTE % (test code = LY%) 14.4 % 14-44 N MONOCYTE % (test code = MO%) 9.7 % 4-13 N EOSINOPHIL % (test code = EO%) 2.3 % 0-6 N BASOPHIL % (test code = BA%) 0.4 % 0-2 N NUCLEATED RBC % (test code = 0.0 % 0-1.0 N NRBC%) NEUTROPHIL # (test code = NT#) 8.07 K/mm3 2.0-7.6 H IMMATURE GRANULOCYTE # (test 0.09 x10 3/uL 0-0.03 H code = IG#) LYMPHOCYTE # (test code = LY#) 1.61 K/mm3 1.0-3.8 N MONOCYTE # (test code = MO#) 1.08 K/mm3 0.1-0.8 H EOSINOPHIL # (test code = EO#) 0.26 K/mm3 0.0-0.2 H BASOPHIL # (test code = BA#) 0.04 K/mm3 0.0-0.2 N NUCLEATED RBC # (test code = 0.00 K/mm3 0.0-0.1 N NRBC#) UNABLE TO DRAW BLOOD, REASON: HARDSTICKNOTIFIED PATIENT CARE STAFF: JULIANO 03/12/21 AT 1427 BY Mary Gonzales Asymptomatic IH [id number] 18:04:00 Test Item Value Reference Range Interpretation Comments COVID 19 NEGATIVE Negative "Negative resul ts from Asymptomatic IH AG patients with symptom (test code = onset beyondfiv e days, COVNONPUIAG) should be breonna roslyn as presumptive, andconfirmation with a molecular assay , if necessary forpa tient management may be performed. Nega tive results do notr ule out COVID-19 and sh ould not be used as the sole basisfor treatm ent or patient managem ent decisions, includinginfect ion control decisio ns. Negative result s should beconsidered in the context of a pa tients recent exposure s,history, and the presenc e of clinical signs and symptomsconsist ent with COVID-19.This t est detects both vi able andnon-viable S ARS-CoV and SARS CoV-2. Test performance dep endson the amount of virus (antigen) in the sample." BASIC METABOLIC [id number] 10:27:00 Test Item Value Reference Range Interpretation Comments SODIUM (test code = 137 MMOL/L 137-145 N NA) POTASSIUM (test code = 3.6 MMOL/L 3.5-5.1 N K) CHLORIDE (test code = 109 MMOL/L 98-107 H CL) CARBON DIOXIDE (test 21 MMOL/L 22-30 L code = CO2) GLUCOSE (test code = 114 MG/DL 74-106 H GLU) BLOOD UREA NITROGEN 24 MG/DL 7-17 H (test code = BUN) GLOMERULAR FILTRATION > 60 Report ing units: RATE (test code = GFR) ml/mi n/1.73 m2 (Modified MDRD Formula)Referen ce Range: > or = 6 0 ml/min/1.73 m2 CREATININE (test code 0.60 MG/DL 0.52-1.04 N = CREAT) CALCIUM (test code = 9.3 MG/DL 8.4-10.2 N CA) - CT HEAD/BRAIN W/O [id number] 10:07:00 [facility] : 1950 Sex: F Patient Name: RORY MATHEWS Unit No: [id number] EXAMS: CPT CODE: [id number] CT HEAD/BRAIN W/O CONT 29956 EXAM: CT BRAIN WITHOUT CONTRAST INDICATION: CVA COMPARISON: March 05, 2021 TECHNIQUE: Routine axial CT images of the brain were obtained without venous contrast. IV contrast: None DLP: 1077.69 mGy-cm FINDINGS: There are areas of low attenuation with sulcal effacement involving the bilateral frontal, parietal and occipital lobes consistent with evolving subacute ischemia. No hemorrhagic transformation is identified. The ventricles and sulci are normal in size and shape with no midline shift. The basal cisterns are patent. The posterior fossa and 4th ventricle are normal. No calvarial lesions are identified. The paranasal sinuses and mastoid air cells are clear. The orbits and globes are unremarkable. 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 No hemorrhagic transformation is identified. LOCATION: B2 This CT exam was performed according to our departmental dose optimization program, which includes automated exposure control, adjustment of the mA and or kV according to patient size and/or use of iterative reconstruction technique. at 1007 Reported and signed by: Erin Lake MD CC: Kanwal Carrillo MD; Josefa De La Cruz; Kevan Ball MD Technologist: Carlos Eduardo Fine, RT(R); Amand CTDI: DLP: Trnscrpt: 03/09/2021 (1007) [address] NAME: RORY MATHEWS PHYS: [place] [address] : 1950 AGE: 70 SEX: F LOC: Z.534 A PHONE #: [phone] EXAM DATE: 03/09/2021 STATUS: ADM IN FAX #: [phone] RAD #: D/C DT PAGE 1 Signed Report Patient Name: RORY MATHEWS Unit No: [id number] EXAMS: CPT CODE: [id number] CT HEAD/BRAIN W/O CONT 63979 <Continued> Orig Print D/T: S: 03/09/2021 (1010) [facility] NAME: RORY MATHEWS PHYS: [place] [address] : 1950 AGE: 70 SEX: F LOC: Z.534 A PHONE #: [phone] EXAM DATE: 03/09/2021 STATUS: ADM IN FAX #: [phone] RAD #: D/C DT PAGE 2 Signed ReportCBC W/AUTO [id number] 10:01:00 Test Item Value Reference Range Interpretation Comments WHITE BLOOD CELL (test code = 11.6 K/MM3 3.8-9.8 H WBC) RED BLOOD CELL (test code = 4.71 M/MM3 3.58-4.97 N RBC) HEMOGLOBIN (test code = HGB) 11.4 G/DL 11.2-14.9 N HEMATOCRIT (test code = HCT) 36.5 % 33.2-43.5 N MEAN CELL VOLUME (test code = 78 fL 80.7-99.1 L MCV) MEAN CELL HGB (test code = MCH) 24.2 pg 27.0-34.1 L MEAN CELL HGB CONCETRATION 31.2 % 32.2-35.7 L (test code = MCHC) RED CELL DISTRIBUTION WIDTH 16.5 % 12.1-15.2 H (test code = RDW) PLATELET COUNT (test code = 460 K/MM3 129-368 H PLT) MEAN PLATELET VOLUME (test code 10.6 fl 7.4-10.4 H = MPV) NEUTROPHIL % (test code = NT%) 75.8 % 43-75 H IMMATURE GRANULOCYTE % (test 0.5 % 0.0-2.0 N code = IG%) LYMPHOCYTE % (test code = LY%) 12.6 % 14-44 L MONOCYTE % (test code = MO%) 8.5 % 4-13 N EOSINOPHIL % (test code = EO%) 1.9 % 0-6 N BASOPHIL % (test code = BA%) 0.7 % 0-2 N NUCLEATED RBC % (test code = 0.0 % 0-1.0 N NRBC%) NEUTROPHIL # (test code = NT#) 8.78 K/mm3 2.0-7.6 H IMMATURE GRANULOCYTE # (test 0.06 x10 3/uL 0-0.03 H code = IG#) LYMPHOCYTE # (test code = LY#) 1.46 K/mm3 1.0-3.8 N MONOCYTE # (test code = MO#) 0.99 K/mm3 0.1-0.8 H EOSINOPHIL # (test code = EO#) 0.22 K/mm3 0.0-0.2 H BASOPHIL # (test code = BA#) 0.08 K/mm3 0.0-0.2 N NUCLEATED RBC # (test code = 0.00 K/mm3 0.0-0.1 N NRBC#) URINALYSIS [id number] 14:12:00 Test Item Value Reference Range Interpretation Comments UA COLOR (test code = YELLOW YELLOW COLU) UA APPEARANCE (test code CLEAR CLEAR = APPU) UA GLUCOSE DIPSTICK (test NORMAL MG/DL NORMAL code = DGLUU) UA BILIRUBIN DIPSTICK NEGATIVE MG/DL NEGATIVE (test code = BILU) UA KETONE DIPSTICK (test NEGATIVE MG/DL NEGATIVE code = KETU) UA SPECIFIC GRAVITY (test 1.020 1.003-1.030 N code = SGU) UA BLOOD DIPSTICK (test 10 Aubrey/mm3 NEGATIVE A code = CECILE) UA PH DIPSTICK (test code 6.0 5.0-9.0 N = JASON) UA PROTEIN DIPSTICK (test 100 MG/DL NEGATIVE A code = PROU) UA UROBILINIOGEN DIPSTICK NORMAL MG/DL NORMAL (test code = URO) UA NITRITE DIPSTICK (test NEGATIVE NEGATIVE code = HANANE) UA LEUKOCYTE ESTERASE NEGATIVE /mm3 NEGATIVE DIPSTICK (test code = LEUU) UA CULTURE NEEDED? (test NO, WBC<10 Criteria Culture Chk code = UACULT) SOURCE OF URINE: STRAIGHT CATHETERUA [id number] 14:12:00 Test Item Value Reference Range Interpretation Comments UA RBC (test code = RBCU) 3-5 RBC/HPF 0-3 A UA WBC (test code = XWBCU) 3-5 WBC/HPF 0-5 UA EPITHELIAL CELLS (test code = RARE EPI/HPF FEW EPIU) UA BACTERIA (test code = XBACU) FEW NONE UA MUCUS (test code = MUCU) SLIGHT #/LPF NONE SOURCE OF URINE: STRAIGHT CATHETER- XR CHEST [id number] 10:45:00 [facility] : 1950 Sex: F Patient Name: RORY MATHEWS Unit No: [id number] EXAMS: CPT CODE: [id number] XR CHEST 1V 72387 HISTORY: Suspected pneumonia Comparison to March 04, 2021 Location code: B2 FINDINGS: Frontal view of the chest demonstrates normal cardiomediastinal silhouette. The trachea is midline. The lungs are clear. There is noeffusion or pneumothorax. The bones are intact. IMPRESSION: No acute pulmonary process. at 1045 Reported and signed by: Ambrosio Molina M.D. CC: Kanwal Carrillo MD; Mathieu Raygoza MD; Josefa De La Cruz; Kevan Ball MD Technologist: Sydney Castillo RT Transcrpt Date/Tm/Trnsp: 03/08/2021 (1045) [id number] Orig Print D/T: S: 03/08/2021 (1046) [facility] NAME: RORY MATHEWS [address] [address] PHYS: [place] [address] : 1950 AGE: 70 SEX: F LOC: Z.534 A PHONE #: [phone] EXAM DATE: 03/08/2021 STATUS: ADM IN FAX #: [phone] RADIOLOGY NO: PAGE 1 Signed ReportBASIC METABOLIC [id number] 06:31:00 Test Item Value Reference Range Interpretation Comments SODIUM (test code = 138 MMOL/L 137-145 N NA) POTASSIUM (test code = 3.7 MMOL/L 3.5-5.1 N K) CHLORIDE (test code = 109 MMOL/L 98-107 H CL) CARBON DIOXIDE (test 20 MMOL/L 22-30 L code = CO2) ANION GAP (test code = 13 MMOL/L 14-24 L GAP) GLUCOSE (test code = 194 MG/DL 74-106 H GLU) BLOOD UREA NITROGEN 27 MG/DL 7-17 H (test code = BUN) GLOMERULAR FILTRATION > 60 Report ing units: RATE (test code = GFR) ml/mi n/1.73 m2 (Modified MDRD Formula)Referen ce Range: > or = 6 0 ml/min/1.73 m2 CREATININE (test code 0.50 MG/DL 0.52-1.04 L = CREAT) CALCIUM (test code = 9.5 MG/DL 8.4-10.2 N CA) CBC W/AUTO [id number] 06:09:00 Test Item Value Reference Range Interpretation Comments WHITE BLOOD CELL (test code = 14.6 K/MM3 3.8-9.8 H WBC) RED BLOOD CELL (test code = 4.67 M/MM3 3.58-4.97 N RBC) HEMOGLOBIN (test code = HGB) 11.3 G/DL 11.2-14.9 N HEMATOCRIT (test code = HCT) 36.2 % 33.2-43.5 N MEAN CELL VOLUME (test code = 78 fL 80.7-99.1 L MCV) MEAN CELL HGB (test code = MCH) 24.2 pg 27.0-34.1 L MEAN CELL HGB CONCETRATION 31.2 % 32.2-35.7 L (test code = MCHC) RED CELL DISTRIBUTION WIDTH 16.7 % 12.1-15.2 H (test code = RDW) PLATELET COUNT (test code = 408 K/MM3 129-368 H PLT) MEAN PLATELET VOLUME (test code 10.8 fl 7.4-10.4 H = MPV) NEUTROPHIL % (test code = NT%) 83.4 % 43-75 H IMMATURE GRANULOCYTE % (test 1.0 % 0.0-2.0 N code = IG%) LYMPHOCYTE % (test code = LY%) 7.2 % 14-44 L MONOCYTE % (test code = MO%) 8.2 % 4-13 N EOSINOPHIL % (test code = EO%) 0.0 % 0-6 N BASOPHIL % (test code = BA%) 0.2 % 0-2 N NUCLEATED RBC % (test code = 0.0 % 0-1.0 N NRBC%) NEUTROPHIL # (test code = NT#) 12.14 K/mm3 2.0-7.6 H IMMATURE GRANULOCYTE # (test 0.15 x10 3/uL 0-0.03 H code = IG#) LYMPHOCYTE # (test code = LY#) 1.05 K/mm3 1.0-3.8 N MONOCYTE # (test code = MO#) 1.20 K/mm3 0.1-0.8 H EOSINOPHIL # (test code = EO#) 0.00 K/mm3 0.0-0.2 N BASOPHIL # (test code = BA#) 0.03 K/mm3 0.0-0.2 N NUCLEATED RBC # (test code = 0.00 K/mm3 0.0-0.1 N NRBC#) VITAMIN [id number] 21:45:00 Test Item Value Reference Range Interpretation Comments VITAMIN B12 (test code = VITB12) 770 pg/mL 239-931 N FOLIC ACID BY [id number] 21:45:00 Test Item Value Reference Range Interpretation Comments FOLIC ACID BY WILFRIDO > 20.0 ng/mL REFERENCE VALUES: (test code = FOLR) NORMAL: 2.76 - >20 ng/ML DEFICIENT : 1.04 - 2.79 ng/ML THYROID STIMULATING [id number] 21:45:00 Test Item Value Reference Range Interpretation Comments THYROID STIMULATING 1.890 MIU/L 0.465-4.68 N Please b e aware that HORMONE (test code = bias re sults for TSH TSH) may occur forpa tient who are taking Biotin suppleme nts. [id number] 20:59:00 Test Item Value Reference Range Interpretation Comments AMMONIA (test code = AMM) 14 mcMOL/L 9-30 N [id number] 20:47:00 Test Item Value Reference Range Interpretation Comments AMMONIA (test code = AMM) mcMOL/L 9-30 T4 [id number] 20:47:00 Test Item Value Reference Range Interpretation Comments T4 FREE (test code = T4F) 1.7 NG/DL 0.78-2.19 N VITAMIN D [id number] 20:47:00 Test Item Value Reference Range Interpretation Comments VITAMIN D 25-HYDROXY (test code = 28.1 ng/mL 30.0-100.0 L VITD25) GLUCOSE BEDSIDE [id number] 20:13:00 Test Item Value Reference Range Interpretation Comments GLUCOSE BEDSIDE TESTING (test code 211 MG/DL 60-99 H = GLUBED) BASIC METABOLIC [id number] 06:28:00 Test Item Value Reference Range Interpretation Comments SODIUM (test code = 142 MMOL/L 137-145 N NA) POTASSIUM (test code = 3.5 MMOL/L 3.5-5.1 N K) CHLORIDE (test code = 113 MMOL/L 98-107 H CL) CARBON DIOXIDE (test 22 MMOL/L 22-30 N code = CO2) GLUCOSE (test code = 157 MG/DL 74-106 H GLU) BLOOD UREA NITROGEN 27 MG/DL 7-17 H (test code = BUN) GLOMERULAR FILTRATION > 60 Report ing units: RATE (test code = GFR) ml/mi n/1.73 m2 (Modified MDRD Formula)Referen ce Range: > or = 6 0 ml/min/1.73 m2 CREATININE (test code 0.60 MG/DL 0.52-1.04 N = CREAT) CALCIUM (test code = 9.7 MG/DL 8.4-10.2 N CA) LIPID PROFILE (CORONARY RISK)2021-03-07 06:28:00 Test Item Value Reference Range Interpretation Comments TRIGLYCERIDES (test 72 MG/DL 150-199 L TRIGLYCE RIDES code = TRIG) REFERENCE RANGE:Normal: < 150 mg/dLBorderline High: 150-199 mg/dLHi gh: 200-499 mg/dLVe ry High: >=500 mg/ dL CHOLESTEROL (test code 89 MG/DL <200 = CHOL) HDL CHOLESTEROL (test 40 MG/DL 40-59 N code = HDL) LIPOPROTEIN LDL (test < 30 MG/DL 0-99 N code = LDL) OPTIMAL........ .<100 mg/dLNEAR OPTIMAL/ABOVE OPTIMAL........ .100-1 29 mg/dL BORDERLINE HIGH.........13 0-159 mg/dL HIGH.........16 0-189 mg/dL VERY HIGH...... ...>/= 190 mg/dL CBC W/AUTO [id number] 05:55:00 Test Item Value Reference Range Interpretation Comments WHITE BLOOD CELL (test code = 13.0 K/MM3 3.8-9.8 H WBC) RED BLOOD CELL (test code = 4.73 M/MM3 3.58-4.97 N RBC) HEMOGLOBIN (test code = HGB) 11.6 G/DL 11.2-14.9 N HEMATOCRIT (test code = HCT) 36.3 % 33.2-43.5 N MEAN CELL VOLUME (test code = 77 fL 80.7-99.1 L MCV) MEAN CELL HGB (test code = MCH) 24.5 pg 27.0-34.1 L MEAN CELL HGB CONCETRATION 32.0 % 32.2-35.7 L (test code = MCHC) RED CELL DISTRIBUTION WIDTH 16.7 % 12.1-15.2 H (test code = RDW) PLATELET COUNT (test code = 382 K/MM3 129-368 H PLT) MEAN PLATELET VOLUME (test code 10.7 fl 7.4-10.4 H = MPV) NEUTROPHIL % (test code = NT%) 76.4 % 43-75 H IMMATURE GRANULOCYTE % (test 0.4 % 0.0-2.0 N code = IG%) LYMPHOCYTE % (test code = LY%) 11.7 % 14-44 L MONOCYTE % (test code = MO%) 10.8 % 4-13 N EOSINOPHIL % (test code = EO%) 0.5 % 0-6 N BASOPHIL % (test code = BA%) 0.2 % 0-2 N NUCLEATED RBC % (test code = 0.0 % 0-1.0 N NRBC%) NEUTROPHIL # (test code = NT#) 9.90 K/mm3 2.0-7.6 H IMMATURE GRANULOCYTE # (test 0.05 x10 3/uL 0-0.03 H code = IG#) LYMPHOCYTE # (test code = LY#) 1.51 K/mm3 1.0-3.8 N MONOCYTE # (test code = MO#) 1.40 K/mm3 0.1-0.8 H EOSINOPHIL # (test code = EO#) 0.06 K/mm3 0.0-0.2 N BASOPHIL # (test code = BA#) 0.03 K/mm3 0.0-0.2 N NUCLEATED RBC # (test code = 0.00 K/mm3 0.0-0.1 N NRBC#) BASIC METABOLIC [id number] 17:05:00 Test Item Value Reference Range Interpretation Comments SODIUM (test code = 142 MMOL/L 137-145 N NA) POTASSIUM (test code = 3.8 MMOL/L 3.5-5.1 N K) CHLORIDE (test code = 112 MMOL/L 98-107 H CL) CARBON DIOXIDE (test 22 MMOL/L 22-30 N code = CO2) ANION GAP (test code = 12 MMOL/L 14-24 L GAP) GLUCOSE (test code = 143 MG/DL 74-106 H GLU) BLOOD UREA NITROGEN 26 MG/DL 7-17 H (test code = BUN) GLOMERULAR FILTRATION > 60 Report ing units: RATE (test code = GFR) ml/mi n/1.73 m2 (Modified MDRD Formula)Referen ce Range: > or = 6 0 ml/min/1.73 m2 CREATININE (test code 0.60 MG/DL 0.52-1.04 N = CREAT) CALCIUM (test code = 9.7 MG/DL 8.4-10.2 CA) CBC W/AUTO [id number] 16:55:00 Test Item Value Reference Range Interpretation Comments WHITE BLOOD CELL (test code = 14.9 K/MM3 3.8-9.8 H WBC) RED BLOOD CELL (test code = 4.94 M/MM3 3.58-4.97 N RBC) HEMOGLOBIN (test code = HGB) 12.2 G/DL 11.2-14.9 N HEMATOCRIT (test code = HCT) 37.8 % 33.2-43.5 N MEAN CELL VOLUME (test code = 77 fL 80.7-99.1 L MCV) MEAN CELL HGB (test code = MCH) 24.7 pg 27.0-34.1 L MEAN CELL HGB CONCETRATION 32.3 % 32.2-35.7 N (test code = MCHC) RED CELL DISTRIBUTION WIDTH 16.7 % 12.1-15.2 H (test code = RDW) PLATELET COUNT (test code = 362 K/MM3 129-368 N PLT) MEAN PLATELET VOLUME (test code 10.5 fl 7.4-10.4 H = MPV) NEUTROPHIL % (test code = NT%) 77.5 % 43-75 H IMMATURE GRANULOCYTE % (test 0.5 % 0.0-2.0 N code = IG%) LYMPHOCYTE % (test code = LY%) 10.5 % 14-44 L MONOCYTE % (test code = MO%) 10.8 % 4-13 N EOSINOPHIL % (test code = EO%) 0.3 % 0-6 N BASOPHIL % (test code = BA%) 0.4 % 0-2 N NUCLEATED RBC % (test code = 0.0 % 0-1.0 N NRBC%) NEUTROPHIL # (test code = NT#) 11.53 K/mm3 2.0-7.6 H IMMATURE GRANULOCYTE # (test 0.07 x10 3/uL 0-0.03 H code = IG#) LYMPHOCYTE # (test code = LY#) 1.56 K/mm3 1.0-3.8 N MONOCYTE # (test code = MO#) 1.61 K/mm3 0.1-0.8 H EOSINOPHIL # (test code = EO#) 0.04 K/mm3 0.0-0.2 N BASOPHIL # (test code = BA#) 0.06 K/mm3 0.0-0.2 N NUCLEATED RBC # (test code = 0.00 K/mm3 0.0-0.1 N NRBC#) ARTERY,[id number] 17:53:00 Test Item Value Reference Range Interpretation Comments ARTERY,PLAQUE (test code = ART) --------RUN DATE: 08/25/20 [facility] [place] PAGE 1 RUN TIME: 1753 Specimen Inquiry RUN USER: INTERFACE --------PATIENT: MATTHEW MATHEWS LOC: [facility]ACKIE U #: [id number] AGE/SX: 70/F ROOM: [facility] RE08/22/20REG DR: Nick Pike MD : 46 BED: A DIS: 04/05/21 STATUS: DIS IN TLOC: -------- SPEC #: [id number] RECD: 08/22/20 STATUS: JORDYN DUKES #: [id number] TREY: 08/22/[address]: Nick Pike MD ENTERED: 08/22/20 SP TYPE: ARTERY, PL OTHR DR: Kanwal Carrillo MD, Nioti R MD Pepper, Gregory S MDORDERED: DECAL, SURG PATH LVL 3 CODES: [id number] - ARTERY, NOS [id number] - ARTERY, NOS PLAQUE, NOS [id number] - ARTERY, NOS ATHEROSCLEROSIS COPIES TO: Kanwal Carrillo MD [address] [place] [address] [email or web address] [address] [place] [address] [place] [address] [facility] [address] [place] [address] [place] [id number] [facility] [address] [place] [address] ICD CODES: 440 - PROCEDURES: DECAL (08/22/20) SURG PATH LVL 3 (08/22/20) TISSUES: A. ARTERY, NOS - LT CAROTID PLAQUE CPT CODES CPT CODE(S): 41264 , 45648 , , , , , CONTINUED ON NEXT PAGE --------RUN DATE: 08/25/20 [facility] PAGE 2 RUN TIME: 175 Specimen Inquiry RUN USER: INTERFACE --------SPEC #: [id number] PATIENT: MATTHEW MATHEWS #[id number] (Continued) FINAL DIAGNOSIS Left carotid plaque, endarterectomy: CALCIFIED ATHEROSCLEROTIC PLAQUE GROSS DESCRIPTION Left carotid plaque. Received is a yellow-pinzon, partially V-shaped segment of plaque (4.3 x 1 x 0.8 cm), sectioned to reveal a heavily calcified cut surface. [employer]st sections are submitted for decalcification as A1. /tc/doreen MICROSCOPIC DESCRIPTION Left carotid plaque. The microscopic description is incorporated into the final diagnosis. /doreen Signed SIGNATURE ON FILE [employer] 08/25/20 [id number] -------- END OF REPORT CBC W/AUTO [id number] 04:25:00 Test Item Value Reference Range Interpretation Comments WHITE BLOOD CELL (test code = 7.8 K/MM3 3.8-9.8 N WBC) RED BLOOD CELL (test code = 3.35 M/MM3 3.58-4.97 L RBC) HEMOGLOBIN (test code = HGB) 8.4 G/DL 11.2-14.9 L HEMATOCRIT (test code = HCT) 28.0 % 33.2-43.5 L MEAN CELL VOLUME (test code = 84 fL 80.7-99.1 N MCV) MEAN CELL HGB (test code = MCH) 25.1 pg 27.0-34.1 L MEAN CELL HGB CONCETRATION 30.0 % 32.2-35.7 L (test code = MCHC) RED CELL DISTRIBUTION WIDTH 16.2 % 12.1-15.2 H (test code = RDW) PLATELET COUNT (test code = 333 K/MM3 129-368 N PLT) MEAN PLATELET VOLUME (test code 10.4 fl 7.4-10.4 N = MPV) NEUTROPHIL % (test code = NT%) 66.7 % 43-75 N IMMATURE GRANULOCYTE % (test 0.6 % 0.0-2.0 N code = IG%) LYMPHOCYTE % (test code = LY%) 18.0 % 14-44 N MONOCYTE % (test code = MO%) 10.9 % 4-13 N EOSINOPHIL % (test code = EO%) 3.3 % 0-6 N BASOPHIL % (test code = BA%) 0.5 % 0-2 N NUCLEATED RBC % (test code = 0.0 % 0-1.0 N NRBC%) NEUTROPHIL # (test code = NT#) 5.17 K/mm3 2.0-7.6 N IMMATURE GRANULOCYTE # (test 0.05 x10 3/uL 0-0.03 H code = IG#) LYMPHOCYTE # (test code = LY#) 1.40 K/mm3 1.0-3.8 N MONOCYTE # (test code = MO#) 0.85 K/mm3 0.1-0.8 H EOSINOPHIL # (test code = EO#) 0.26 K/mm3 0.0-0.2 H BASOPHIL # (test code = BA#) 0.04 K/mm3 0.0-0.2 N NUCLEATED RBC # (test code = 0.00 K/mm3 0.0-0.1 N NRBC#) - XR CHEST [id number] 09:00:00 [facility] : 1950 Sex: F Patient Name: MATTHEW MATHEWS Unit No: [id number] EXAMS: CPT CODE: [id number] XR CHEST 1V 22708 EXAM: Portable chest one view. Location code:J9 HISTORY: Dyspnea COMPARISON: 08/22/2020 COMMENT: Stable position of right IJcatheter and left IJ sheath. The lungs and pleural spaces are clear. Lungs are normallyexpanded. The aorta, pulmonary vasculature and mediastinum are within normal limits. Cardiac s ilhouette is normal in size and contour. Visualized skeletal structures are unremarkable. IMPRESSION: No active disease in the chest. at 0900 Reported and signed by: Guillermo Marrufo M.D. CC: Kanwal Carrillo MD Technologist: Harry Sykes, RT(R) Transcrpt Date/Tm/Trnsp: 08/23/2020 (0900) [email or web address] Orig Print D/T: S: 08/23/2020 (0903) [facility] NAME: MATTHEW MATHEWS [id number] [address] PHYS: [place] [address] : 1950 AGE: 70 SEX: F LOC: FARZAD Locke PHONE #: [phone] EXAM DATE: 08/23/2020 STATUS: ADM IN FAX #: [phone] RADIOLOGY NO: PAGE 1 Signed ReportCBC W/AUTO [id number] 06:13:00 Test Item Value Reference Range Interpretation Comments WHITE BLOOD CELL (test code = 8.7 K/MM3 3.8-9.8 N WBC) RED BLOOD CELL (test code = 3.29 M/MM3 3.58-4.97 L RBC) HEMOGLOBIN (test code = HGB) 8.1 G/DL 11.2-14.9 L HEMATOCRIT (test code = HCT) 28.1 % 33.2-43.5 L MEAN CELL VOLUME (test code = 85 fL 80.7-99.1 N MCV) MEAN CELL HGB (test code = MCH) 24.6 pg 27.0-34.1 L MEAN CELL HGB CONCETRATION 28.8 % 32.2-35.7 L (test code = MCHC) RED CELL DISTRIBUTION WIDTH 16.3 % 12.1-15.2 H (test code = RDW) PLATELET COUNT (test code = 313 K/MM3 129-368 N PLT) MEAN PLATELET VOLUME (test code 10.1 fl 7.4-10.4 N = MPV) NEUTROPHIL % (test code = NT%) 70.1 % 43-75 N IMMATURE GRANULOCYTE % (test 0.5 % 0.0-2.0 N code = IG%) LYMPHOCYTE % (test code = LY%) 16.4 % 14-44 N MONOCYTE % (test code = MO%) 11.0 % 4-13 N EOSINOPHIL % (test code = EO%) 1.7 % 0-6 N BASOPHIL % (test code = BA%) 0.3 % 0-2 N NUCLEATED RBC % (test code = 0.0 % 0-1.0 N NRBC%) NEUTROPHIL # (test code = NT#) 6.09 K/mm3 2.0-7.6 N IMMATURE GRANULOCYTE # (test 0.04 x10 3/uL 0-0.03 H code = IG#) LYMPHOCYTE # (test code = LY#) 1.43 K/mm3 1.0-3.8 N MONOCYTE # (test code = MO#) 0.96 K/mm3 0.1-0.8 H EOSINOPHIL # (test code = EO#) 0.15 K/mm3 0.0-0.2 N BASOPHIL # (test code = BA#) 0.03 K/mm3 0.0-0.2 N NUCLEATED RBC # (test code = 0.00 K/mm3 0.0-0.1 N NRBC#) DIFFERENTIAL [id number] 06:13:00 Test Item Value Reference Range Interpretation Comments RBC MORPHOLOGY REQUIRED (test code = NORMAL RBCM) PLATELET ESTIMATE (test code = ADEQUATE ADEQUATE PLTEST) PLATELET MORPHOLOGY (test code = NORMAL NORMAL PLTMORPH) GLYCOSYLATED HEMOGLOBIN [id number] 05:34:00 Test Item Value Reference Range Interpretation Comments GLYCOSYLATED 5.4 % 4.8-5.9 N Any condition t hat HEMOGLOBIN (HA1C) shortens e rythocyte (test code = survival or dec reasesmean GLYHGB) erythrocyte age (e.g., recovery from a cute blood loss,hemolytic anemia) will falsely lo wer HGBA1c resultsregardle ss of the method used. H GBA1c results from martha simmons HbSS, HbCC, and HbSc must be interpreted with cautiongiven th e pathological pr ocesses, including anemia,increase d red cell turnover, trans fusion requirements, thatadversely i mpact HGBA1c as a mar ker of long-term glycemiccontrol . Alternative for ms of testing such as fructosaminesho uld be considered for these patients. MEAN BLOOD GLUCOSE 108 MG/DL 70-110 N (test code = MBG) BASIC METABOLIC [id number] 05:03:00 Test Item Value Reference Range Interpretation Comments SODIUM (test code = 140 MMOL/L 137-145 N NA) POTASSIUM (test code = 3.7 MMOL/L 3.5-5.1 N K) CHLORIDE (test code = 110 MMOL/L 98-107 H CL) CARBON DIOXIDE (test 24 MMOL/L 22-30 N code = CO2) GLUCOSE (test code = 137 MG/DL 74-106 H GLU) BLOOD UREA NITROGEN 13 MG/DL 7-17 N (test code = BUN) GLOMERULAR FILTRATION > 60 Report ing units: RATE (test code = GFR) ml/mi n/1.73 m2 (Modified MDRD Formula)Referen ce Range: > or = 6 0 ml/min/1.73 m2 CREATININE (test code 0.60 MG/DL 0.52-1.04 N = CREAT) CALCIUM (test code = 8.3 MG/DL 8.4-10.2 L CA) [id number] 05:03:00 Test Item Value Reference Range Interpretation Comments MAGNESIUM (test code = MAG) 1.9 MG/DL 1.6-2.3 N CBC W/AUTO [id number] 04:56:00 Test Item Value Reference Range Interpretation Comments WHITE BLOOD CELL (test code = 8.7 K/MM3 3.8-9.8 N WBC) RED BLOOD CELL (test code = 3.29 M/MM3 3.58-4.97 L RBC) HEMOGLOBIN (test code = HGB) 8.1 G/DL 11.2-14.9 L HEMATOCRIT (test code = HCT) 28.1 % 33.2-43.5 L MEAN CELL VOLUME (test code = 85 fL 80.7-99.1 N MCV) MEAN CELL HGB (test code = MCH) 24.6 pg 27.0-34.1 L MEAN CELL HGB CONCETRATION 28.8 % 32.2-35.7 L (test code = MCHC) RED CELL DISTRIBUTION WIDTH 16.3 % 12.1-15.2 H (test code = RDW) PLATELET COUNT (test code = 313 K/MM3 129-368 N PLT) MEAN PLATELET VOLUME (test code 10.1 fl 7.4-10.4 N = MPV) NEUTROPHIL % (test code = NT%) 70.1 % 43-75 N IMMATURE GRANULOCYTE % (test 0.5 % 0.0-2.0 N code = IG%) LYMPHOCYTE % (test code = LY%) 16.4 % 14-44 N MONOCYTE % (test code = MO%) 11.0 % 4-13 N EOSINOPHIL % (test code = EO%) 1.7 % 0-6 N BASOPHIL % (test code = BA%) 0.3 % 0-2 N NUCLEATED RBC % (test code = 0.0 % 0-1.0 N NRBC%) NEUTROPHIL # (test code = NT#) 6.09 K/mm3 2.0-7.6 N IMMATURE GRANULOCYTE # (test 0.04 x10 3/uL 0-0.03 H code = IG#) LYMPHOCYTE # (test code = LY#) 1.43 K/mm3 1.0-3.8 N MONOCYTE # (test code = MO#) 0.96 K/mm3 0.1-0.8 H EOSINOPHIL # (test code = EO#) 0.15 K/mm3 0.0-0.2 N BASOPHIL # (test code = BA#) 0.03 K/mm3 0.0-0.2 N NUCLEATED RBC # (test code = 0.00 K/mm3 0.0-0.1 N NRBC#) DIFFERENTIAL [id number] 04:56:00 Test Item Value Reference Range Interpretation Comments RBC MORPHOLOGY REQUIRED (test code = RBCM) PLATELET ESTIMATE (test code = PLTEST) ADEQUATE PLATELET MORPHOLOGY (test code = NORMAL PLTMORPH) CBC W/AUTO [id number] 04:56:00 Test Item Value Reference Range Interpretation Comments WHITE BLOOD CELL (test code = 8.7 K/MM3 3.8-9.8 N WBC) RED BLOOD CELL (test code = 3.29 M/MM3 3.58-4.97 L RBC) HEMOGLOBIN (test code = HGB) 8.1 G/DL 11.2-14.9 L HEMATOCRIT (test code = HCT) 28.1 % 33.2-43.5 L MEAN CELL VOLUME (test code = 85 fL 80.7-99.1 N MCV) MEAN CELL HGB (test code = MCH) 24.6 pg 27.0-34.1 L MEAN CELL HGB CONCETRATION 28.8 % 32.2-35.7 L (test code = MCHC) RED CELL DISTRIBUTION WIDTH 16.3 % 12.1-15.2 H (test code = RDW) PLATELET COUNT (test code = 313 K/MM3 129-368 N PLT) MEAN PLATELET VOLUME (test code 10.1 fl 7.4-10.4 N = MPV) NEUTROPHIL % (test code = NT%) 70.1 % 43-75 N IMMATURE GRANULOCYTE % (test 0.5 % 0.0-2.0 N code = IG%) LYMPHOCYTE % (test code = LY%) 16.4 % 14-44 N MONOCYTE % (test code = MO%) 11.0 % 4-13 N EOSINOPHIL % (test code = EO%) 1.7 % 0-6 N BASOPHIL % (test code = BA%) 0.3 % 0-2 N NUCLEATED RBC % (test code = 0.0 % 0-1.0 N NRBC%) NEUTROPHIL # (test code = NT#) 6.09 K/mm3 2.0-7.6 N IMMATURE GRANULOCYTE # (test 0.04 x10 3/uL 0-0.03 H code = IG#) LYMPHOCYTE # (test code = LY#) 1.43 K/mm3 1.0-3.8 N MONOCYTE # (test code = MO#) 0.96 K/mm3 0.1-0.8 H EOSINOPHIL # (test code = EO#) 0.15 K/mm3 0.0-0.2 N BASOPHIL # (test code = BA#) 0.03 K/mm3 0.0-0.2 N NUCLEATED RBC # (test code = 0.00 K/mm3 0.0-0.1 N NRBC#) DIFFERENTIAL [id number] 04:56:00 Test Item Value Reference Range Interpretation Comments RBC MORPHOLOGY REQUIRED (test code = RBCM) PLATELET ESTIMATE (test code = PLTEST) ADEQUATE PLATELET MORPHOLOGY (test code = NORMAL PLTMORPH) ARTERIAL BLOOD [id number] 13:25:00 Test Item Value Reference Range Interpretation Comments ARTERIAL BLOOD GAS PH 7.34 mmHg 7.35-7.45 L (test code = PHA) ARTERIAL BLOOD GAS 37.9 mmHg 35.0-45.0 N PCO2 (test code = PCO2A) ARTERIAL BLOOD GAS 106.2 mmol/L 80.0-100.0 H PO2 (test code = PO2A) BICARBONATE TOTAL 20.1 mmol/L 20.0-26.0 N HCO3 (test code = HCO3) BASE EXCESS (test -5.0 mmol/L -3.0-3.0 L code = ANG) ABG O2 SATURATION 97.6 % 95.0-100.0 N (test code = SATA) ABG DELIVERY (test N/C code = AARON) ABG TEMPERATURE (test 37.0 C See_Comment [Auto mated message] code = TEMPA) The system [employer] generated this result transmit roslyn reference range : 37. The reference r mel was not used to interpret this result as normal/abnormal . ABG SITE (test code = AL SITEA) ALLENS TEST (test NA CHECK code = ALLENS) FIO2 (test code = 28 % COHBGFFIO2) PaO2/[id number] 13:25:00 Test Item Value Reference Range Interpretation Comments PaO2/FiO2 (test code = UGR2EMX6) mm/Hg ARTERIAL BLOOD [id number] 13:25:00 Test Item Value Reference Range Interpretation Comments ARTERIAL BLOOD GAS PH 7.34 mmHg 7.35-7.45 L (test code = PHA) ARTERIAL BLOOD GAS 37.9 mmHg 35.0-45.0 N PCO2 (test code = PCO2A) ARTERIAL BLOOD GAS 106.2 mmol/L 80.0-100.0 H PO2 (test code = PO2A) BICARBONATE TOTAL 20.1 mmol/L 20.0-26.0 N HCO3 (test code = HCO3) BASE EXCESS (test -5.0 mmol/L -3.0-3.0 L code = ANG) ABG O2 SATURATION 97.6 % 95.0-100.0 N (test code = SATA) ABG DELIVERY (test N/C code = AARON) ABG TEMPERATURE (test 37.0 C See_Comment [Auto mated message] code = TEMPA) The system [employer] generated this result transmit roslyn reference range : 37. The reference r mel was not used to interpret this result as normal/abnormal . ABG SITE (test code = AL SITEA) ALLENS TEST (test NA CHECK code = ALLENS) FIO2 (test code = 28 % COHBGFFIO2) PaO2/[id number] 13:25:00 Test Item Value Reference Range Interpretation Comments PaO2/FiO2 (test code = SYB3AUM2) 379.28 mm/Hg BASIC METABOLIC [id number] 12:56:00 Test Item Value Reference Range Interpretation Comments SODIUM (test code = 140 MMOL/L 137-145 N NA) POTASSIUM (test code = 3.2 MMOL/L 3.5-5.1 L K) CHLORIDE (test code = 110 MMOL/L 98-107 H CL) CARBON DIOXIDE (test 26 MMOL/L 22-30 N code = CO2) GLUCOSE (test code = 153 MG/DL 74-106 H GLU) BLOOD UREA NITROGEN 20 MG/DL 7-17 H (test code = BUN) GLOMERULAR FILTRATION > 60 Report ing units: RATE (test code = GFR) ml/mi n/1.73 m2 (Modified MDRD Formula)Referen ce Range: > or = 6 0 ml/min/1.73 m2 CREATININE (test code 0.70 MG/DL 0.52-1.04 N = CREAT) CALCIUM (test code = 8.3 MG/DL 8.4-10.2 L CA) [id number] 12:56:00 Test Item Value Reference Range Interpretation Comments MAGNESIUM (test code = MAG) 2.0 MG/DL 1.6-2.3 N CBC W/AUTO [id number] 12:52:00 Test Item Value Reference Range Interpretation Comments WHITE BLOOD CELL (test code = 10.7 K/MM3 3.8-9.8 H WBC) RED BLOOD CELL (test code = 3.57 M/MM3 3.58-4.97 L RBC) HEMOGLOBIN (test code = HGB) 8.9 G/DL 11.2-14.9 L HEMATOCRIT (test code = HCT) 29.4 % 33.2-43.5 L MEAN CELL VOLUME (test code = 82 fL 80.7-99.1 N MCV) MEAN CELL HGB (test code = MCH) 24.9 pg 27.0-34.1 L MEAN CELL HGB CONCETRATION 30.3 % 32.2-35.7 L (test code = MCHC) RED CELL DISTRIBUTION WIDTH 16.1 % 12.1-15.2 H (test code = RDW) PLATELET COUNT (test code = 338 K/MM3 129-368 PLT) MEAN PLATELET VOLUME (test code 10.1 fl 7.4-10.4 N = MPV) NEUTROPHIL % (test code = NT%) 65.0 % 43-75 N IMMATURE GRANULOCYTE % (test 1.0 % 0.0-2.0 N code = IG%) LYMPHOCYTE % (test code = LY%) 21.6 % 14-44 N MONOCYTE % (test code = MO%) 9.6 % 4-13 N EOSINOPHIL % (test code = EO%) 2.3 % 0-6 N BASOPHIL % (test code = BA%) 0.5 % 0-2 N NUCLEATED RBC % (test code = 0.0 % 0-1.0 N NRBC%) NEUTROPHIL # (test code = NT#) 6.96 K/mm3 2.0-7.6 N IMMATURE GRANULOCYTE # (test 0.11 x10 3/uL 0-0.03 H code = IG#) LYMPHOCYTE # (test code = LY#) 2.32 K/mm3 1.0-3.8 N MONOCYTE # (test code = MO#) 1.03 K/mm3 0.1-0.8 H EOSINOPHIL # (test code = EO#) 0.25 K/mm3 0.0-0.2 H BASOPHIL # (test code = BA#) 0.05 K/mm3 0.0-0.2 N NUCLEATED RBC # (test code = 0.00 K/mm3 0.0-0.1 N NRBC#) - XR CHEST [id number] 12:22:00 [facility] : 1950 Sex: F Patient Name: MATTHEW MATHEWS Unit No: [id number] EXAMS: CPT CODE: [id number] XR CHEST 1V 75764 Chest Radiograph History: post op surgery Comparison: August 20, 2020 Location: H45 A single frontal view of the chest is submitted. The heart appears unchanged in size. Pulmonary vasculature is unremarkable. There is minimal left basilar atelectasis. The bones appear unchanged. A central vascular catheter terminates near the SVC/right atrium junction. No pneumothorax is identified. There are postsurgical changes projected over the left neck and left upper chest. IMPRESSION: There is minimal left basilar atelectasis. Electr onically Signed by Ben Moore MD on 08/22/2020 at 1222 Reported and signed by: Ben Moore MD CC: Kanwal Peng Technologist: Kristie Bass, RT (R) Transcrpt Date/Tm/Trnsp: 08/22/2020 (1222) [email or web address] Orig Print D/T: S: 08/22/2020 (7599) [facility] NAME: MATTHEW MATHEWS [id number] [address] PHYS: [place] [address] : 1950 AGE: 70 SEX: F LOC: Z.SI05 A PHONE #: [phone] EXAM DATE: 08/22/2020 STATUS: ADM IN FAX #: [phone] RADIOLOGY NO: PAGE 1 Signed ReportCOVID 19 Asymptomatic IH [id number] 15:06:00 Test Item Value Reference Range Interpretation Comments COVID 19 NEGATIVE Negative "Negative resul ts from Asymptomatic IH AG patients with symptom (test code = onset beyondfiv e days, COVNONPUIAG) should be breonna roslyn as presumptive, andconfirmation with a molecular assay , if necessary forpa tient management may be performed. Nega tive results do notr ule out COVID-19 and sh ould not be used as the sole basisfor treatm ent or patient managem ent decisions, includinginfect ion control decisio ns. Negative result s should beconsidered in the context of a pa tients recent exposure s,history, and the presenc e of clinical signs and symptomsconsist ent with COVID-19.This t est detects both vi able andnon-viable S ARS-CoV and SARS CoV-2. Test performance dep endson the amount of virus (antigen) in the sample." HIV 12 AB [id number] 14:51:00 Test Item Value Reference Range Interpretation Comments HIV 1 2 COMBO AG/AB SCREEN AB/AG NON REACTIVE NONREACTIVE (test code = [id number]) - XR CHEST 2 [id number] 14:24:00 [facility] : 1950 Sex: F Patient Name: MATTHEW MATHEWS Unit No: [id number] EXAMS: CPT CODE: [id number] XR CHEST 2 V 98004 Location code: B2 HISTORY: Preop, endarterectomy TECHNIQUE: Frontal and lateral views of the chest were obtained. FINDINGS: The cardiomediastinal silhouette is unremarkable. The trachea is midline. The lungs are clear. There is no effusion or pneumothorax. Mild aortic atherosclerosis. The bones are intact. IMPRESSION: No acute pulmonary process. at 1424 Reported and signed by: Ambrosio Molina M.D. CC: Kanwal Carrillo MD Technologist: Rene Pichardo RT(R) Transcrpt Date/Tm/Trnsp: 08/20/2020 (7904) [email or web address] Orig Print D/T: S: 08/20/2020 (9689) [facility] NAME: MATTHEW MATHEWS [id number] [address] PHYS: [place] [address] : 1950 AGE: 70 SEX: F LOC: [id number] PHONE #: [phone] EXAM DATE: 08/20/2020 STATUS: PRE IN FAX #: [phone] RADIOLOGY NO: PAGE 1 Signed ReportBASIC METABOLIC [id number] 14:04:00 Test Item Value Reference Range Interpretation Comments SODIUM (test code = 144 MMOL/L 137-145 N NA) POTASSIUM (test code = 3.4 MMOL/L 3.5-5.1 L K) CHLORIDE (test code = 107 MMOL/L 98-107 N CL) CARBON DIOXIDE (test 26 MMOL/L 22-30 N code = CO2) ANION GAP (test code = 14 MMOL/L 14-24 N GAP) GLUCOSE (test code = 127 MG/DL 74-106 H GLU) BLOOD UREA NITROGEN 22 MG/DL 7-17 H (test code = BUN) GLOMERULAR FILTRATION > 60 Report ing units: RATE (test code = GFR) ml/mi n/1.73 m2 (Modified MDRD Formula)Referen ce Range: > or = 6 0 ml/min/1.73 m2 CREATININE (test code 0.80 MG/DL 0.52-1.04 N = CREAT) CALCIUM (test code = 9.3 MG/DL 8.4-10.2 N CA) PROTHROMBIN [id number] 13:48:00 Test Item Value Reference Range Interpretation Comments PROTHROMBIN TIME PATIENT 13.5 9.5-12.7 H (test code = PTP) INTERNATIONAL NORMAL RATIO 1.2 0.86-1.14 H T he INR is to be used (test code = INR) only for m onitoring oral anticoagulantth erapy. INDICATION INR VALUE ------- ------- -----1. Prophylaxis, d eep venous thrombos is, including high risk surgery. 2.0 - 3.0 2. Prophylaxis, de ep venous thrombos is, hip surgery, tr eatment for deep venous thrombosis or pulmonary preve ntion of systemic embolism in pat ients with valvula r heart disease, atrial fibrillation, tissue heart va lve, or acute myocardia l infarction. 2.0 - 3.0 3. Mechanical pros thesis heart valves, recurrent syste robby embolism. 3.0 - 4.5 PTT [id number] 13:48:00 Test Item Value Reference Range Interpretation Comments PTT ACTIVATED (test 66.2 SECONDS 25.1-36.5 HH CALLED T Beverly JOSEPH G code = APTT) & READBACK ON 08/20/20 AT 134 7 BY Jay Olguin CBC W/AUTO [id number] 13:17:00 Test Item Value Reference Range Interpretation Comments WHITE BLOOD CELL (test code = 7.6 K/MM3 3.8-9.8 N WBC) RED BLOOD CELL (test code = 4.33 M/MM3 3.58-4.97 N RBC) HEMOGLOBIN (test code = HGB) 10.9 G/DL 11.2-14.9 L HEMATOCRIT (test code = HCT) 36.2 % 33.2-43.5 N MEAN CELL VOLUME (test code = 84 fL 80.7-99.1 N MCV) MEAN CELL HGB (test code = MCH) 25.2 pg 27.0-34.1 L MEAN CELL HGB CONCETRATION 30.1 % 32.2-35.7 L (test code = MCHC) RED CELL DISTRIBUTION WIDTH 16.1 % 12.1-15.2 H (test code = RDW) PLATELET COUNT (test code = 435 K/MM3 129-368 H PLT) MEAN PLATELET VOLUME (test code 9.8 fl 7.4-10.4 N = MPV) NEUTROPHIL % (test code = NT%) 66.7 % 43-75 N IMMATURE GRANULOCYTE % (test 0.5 % 0.0-2.0 N code = IG%) LYMPHOCYTE % (test code = LY%) 19.8 % 14-44 N MONOCYTE % (test code = MO%) 10.2 % 4-13 N EOSINOPHIL % (test code = EO%) 2.1 % 0-6 N BASOPHIL % (test code = BA%) 0.7 % 0-2 N NUCLEATED RBC % (test code = 0.0 % 0-1.0 N NRBC%) NEUTROPHIL # (test code = NT#) 5.05 K/mm3 2.0-7.6 N IMMATURE GRANULOCYTE # (test 0.04 x10 3/uL 0-0.03 H code = IG#) LYMPHOCYTE # (test code = LY#) 1.50 K/mm3 1.0-3.8 N MONOCYTE # (test code = MO#) 0.77 K/mm3 0.1-0.8 N EOSINOPHIL # (test code = EO#) 0.16 K/mm3 0.0-0.2 N BASOPHIL # (test code = BA#) 0.05 K/mm3 0.0-0.2 N NUCLEATED RBC # (test code = 0.00 K/mm3 0.0-0.1 N NRBC#) BASIC METABOLIC [id number] 06:51:00 Test Item Value Reference Range Interpretation Comments SODIUM (test code = 139 MMOL/L 137-145 N NA) POTASSIUM (test code = 4.0 MMOL/L 3.5-5.1 N K) CHLORIDE (test code = 107 MMOL/L 98-107 N CL) CARBON DIOXIDE (test 24 MMOL/L 22-30 N code = CO2) GLUCOSE (test code = 125 MG/DL 74-106 H GLU) BLOOD UREA NITROGEN 27 MG/DL 7-17 H (test code = BUN) GLOMERULAR FILTRATION > 60 Report ing units: RATE (test code = GFR) ml/mi n/1.73 m2 (Modified MDRD Formula)Referen ce Range: > or = 6 0 ml/min/1.73 m2 CREATININE (test code 0.70 MG/DL 0.52-1.04 N = CREAT) CALCIUM (test code = 9.7 MG/DL 8.4-10.2 N CA) LIPID PROFILE (CORONARY RISK)2020-08-09 06:51:00 Test Item Value Reference Range Interpretation Comments TRIGLYCERIDES (test 140 MG/DL TRIGLYCE RIDES code = TRIG) REFERENCE RANGE:Normal: < 150 mg/dLBorderline High: 150-199 mg/dLHi gh: 200-499 mg/dLVe ry High: >=500 mg/ dL CHOLESTEROL (test code 109 MG/DL <200 = CHOL) HDL CHOLESTEROL (test 50 MG/DL 40-59 N code = HDL) LIPOPROTEIN LDL (test < 30 MG/DL 0-99 N code = LDL) OPTIMAL........ .<100 mg/dLNEAR OPTIMAL/ABOVE OPTIMAL........ .100-1 29 mg/dL BORDERLINE HIGH.........13 0-159 mg/dL HIGH.........16 0-189 mg/dL VERY HIGH...... ...>/= 190 mg/dL [id number] 06:51:00 Test Item Value Reference Range Interpretation Comments MAGNESIUM (test code = MAG) 2.5 MG/DL 1.6-2.3 H BASIC METABOLIC [id number] 06:40:00 Test Item Value Reference Range Interpretation Comments SODIUM (test code = 139 MMOL/L 137-145 N NA) POTASSIUM (test code = 4.0 MMOL/L 3.5-5.1 N K) CHLORIDE (test code = 107 MMOL/L 98-107 N CL) CARBON DIOXIDE (test 24 MMOL/L 22-30 N code = CO2) GLUCOSE (test code = 125 MG/DL 74-106 H GLU) BLOOD UREA NITROGEN 27 MG/DL 7-17 H (test code = BUN) GLOMERULAR FILTRATION > 60 Report ing units: RATE (test code = GFR) ml/mi n/1.73 m2 (Modified MDRD Formula)Referen ce Range: > or = 6 0 ml/min/1.73 m2 CREATININE (test code 0.70 MG/DL 0.52-1.04 N = CREAT) CALCIUM (test code = 9.7 MG/DL 8.4-10.2 N CA) LIPID PROFILE (CORONARY RISK)2020-08-09 06:40:00 Test Item Value Reference Range Interpretation Comments TRIGLYCERIDES (test 140 MG/DL TRIGLYCE RIDES code = TRIG) REFERENCE RANGE:Normal: < 150 mg/dLBorderline High: 150-199 mg/dLHi gh: 200-499 mg/dLVe ry High: >=500 mg/ dL CHOLESTEROL (test code 109 MG/DL <200 = CHOL) HDL CHOLESTEROL (test 50 MG/DL 40-59 N code = HDL) LIPOPROTEIN LDL (test MG/DL 0-99 code = LDL) [id number] 06:40:00 Test Item Value Reference Range Interpretation Comments MAGNESIUM (test code = MAG) 2.5 MG/DL 1.6-2.3 H PROTHROMBIN [id number] 06:35:00 Test Item Value Reference Range Interpretation Comments PROTHROMBIN TIME PATIENT 13.0 9.5-12.7 H (test code = PTP) INTERNATIONAL NORMAL RATIO 1.2 0.86-1.14 H T he INR is to be used (test code = INR) only for m onitoring oral anticoagulantth erapy. INDICATION INR VALUE ------- ------- -----1. Prophylaxis, d eep venous thrombos is, including high risk surgery. 2.0 - 3.0 2. Prophylaxis, de ep venous thrombos is, hip surgery, tr eatment for deep venous thrombosis or pulmonary preve ntion of systemic embolism in pat ients with valvula r heart disease, atrial fibrillation, tissue heart va lve, or acute myocardia l infarction. 2.0 - 3.0 3. Mechanical pros thesis heart valves, recurrent syste robby embolism. 3.0 - 4.5 PTT [id number] 06:35:00 Test Item Value Reference Range Interpretation Comments PTT ACTIVATED (test code = APTT) 51.6 SECONDS 25.1-36.5 H CBC W/AUTO [id number] 06:23:00 Test Item Value Reference Range Interpretation Comments WHITE BLOOD CELL (test code = 6.9 K/MM3 3.8-9.8 N WBC) RED BLOOD CELL (test code = 4.25 M/MM3 3.58-4.97 N RBC) HEMOGLOBIN (test code = HGB) 10.6 G/DL 11.2-14.9 L HEMATOCRIT (test code = HCT) 34.0 % 33.2-43.5 N MEAN CELL VOLUME (test code = 80 fL 80.7-99.1 L MCV) MEAN CELL HGB (test code = MCH) 24.9 pg 27.0-34.1 L MEAN CELL HGB CONCETRATION 31.2 % 32.2-35.7 L (test code = MCHC) RED CELL DISTRIBUTION WIDTH 16.1 % 12.1-15.2 H (test code = RDW) PLATELET COUNT (test code = 433 K/MM3 129-368 H PLT) MEAN PLATELET VOLUME (test code 10.0 fl 7.4-10.4 N = MPV) NEUTROPHIL % (test code = NT%) 60.9 % 43-75 N IMMATURE GRANULOCYTE % (test 0.6 % 0.0-2.0 N code = IG%) LYMPHOCYTE % (test code = LY%) 21.7 % 14-44 N MONOCYTE % (test code = MO%) 14.9 % 4-13 H EOSINOPHIL % (test code = EO%) 1.0 % 0-6 N BASOPHIL % (test code = BA%) 0.9 % 0-2 N NUCLEATED RBC % (test code = 0.0 % 0-1.0 N NRBC%) NEUTROPHIL # (test code = NT#) 4.20 K/mm3 2.0-7.6 N IMMATURE GRANULOCYTE # (test 0.04 x10 3/uL 0-0.03 H code = IG#) LYMPHOCYTE # (test code = LY#) 1.50 K/mm3 1.0-3.8 N MONOCYTE # (test code = MO#) 1.03 K/mm3 0.1-0.8 H EOSINOPHIL # (test code = EO#) 0.07 K/mm3 0.0-0.2 N BASOPHIL # (test code = BA#) 0.06 K/mm3 0.0-0.2 N NUCLEATED RBC # (test code = 0.00 K/mm3 0.0-0.1 N NRBC#) COVID 19 Asymptomatic IH [id number] 05:51:00 Test Item Value Reference Range Interpretation Comments COVID 19 NEGATIVE Negative "Negative resul ts from Asymptomatic IH AG patients with symptom (test code = onset beyondfiv e days, COVNONPUIAG) should be breonna roslyn as presumptive, andconfirmation with a molecular assay , if necessary forpa tient management may be performed. Nega tive results do notr ule out COVID-19 and sh ould not be used as the sole basisfor treatm ent or patient managem ent decisions, includinginfect ion control decisio ns. Negative result s should beconsidered in the context of a pa tients recent exposure s,history, and the presenc e of clinical signs and symptomsconsist ent with COVID-19.This t est detects both vi able andnon-viable S ARS-CoV and SARS CoV-2. Test performance dep endson the amount of virus (antigen) in the sample." CHEM [id number] 20:09:0027[facility] [id number] 20:09:000.95 [facility] HermannCHEM [id number] 20:09:0060[facility]ann[facility] PANEL 2019-08-15 20:09:0070[facility]ann[facility] [id number] 20:09:0028[facility]ann[facility] [id number] 20:09:0027[facility] [id number] 20:09:000.95[facility] [id number] 20:09:0060[facility] [id number] 20:09:0070[facility]ann[facility] [id number] 20:09:0028 [facility] [id number] 20:09:0027[facility]ann[facility] PANEL 2019-08-15 20:09:000.95[facility] [id number] 20:09:0060[facility]ann[facility] [id number] 20:09:0070[facility] [id number] 20:09:0028[facility]ann[facility] [id number] 20:09:0027[facility] [id number] 20:09:000.95[facility] [id number] 20:09:0060 [facility] [id number] 20:09:0070[facility]ann[facility] PANEL 2019-08-15 20:09:0028[facility] [id number] 20:09:0027[facility] [id number] 20:09:000.95[facility] [id number] 20:09:0060[facility] [id number] 20:09:0070[facility] [id number] 20:09:0028[facility] [id number] 20:09:0027 [facility] [id number] 20:09:000.95[facility] PANEL 2019-08-15 20:09:0060[facility]annCHE[facility] [id number] 20:09:0070[facility]ann[facility] [id number] 20:09:0028[facility]annTISSUE [id number] 13:10:00Surgical Pathology Report Case: [id number] Authorizing Provider: Cornelio Ortiz MD Collected: 01/09/2018 1704 Ordering Location: [facility] Received: 01/10/2018 0831 SERVICES Pathologist: Avery Leal MD Specimen: Large Intestine, Colon - Rectosigmoid, rectosigmoid and donuts A. RECTUM AND SIGMOID COLON, LAPAROSCOPIC LOW ANTERIOR RESECTION: COLON WITH DIVERTICULAR DISEASE.NEGATIVE FOR DYSPLASIA OR INVASIVE CARCINOMA.SURGICAL MARGINS VIABLE. Signing Pathologist Direct Phone Line: [phone] signed by Avery Leal MD on 01/12/2018 at 1:10 [id number] of colon Rectosigmoid colon and donutsReceived fresh [...] Section code: A1-A2, parallel resection margins; A3-A9, account services representative sections of mucosal outpouchings; A10, account services representative sections of intestinal rings. DB/plPerformed. BASIC METABOLIC [id number] 06:17:00 Test Item Value Reference Range Interpretation Comments SODIUM (BEAKER) 138 meq/L 136-145 (test code = 381) POTASSIUM (BEAKER) 3.8 meq/L 3.5-5.1 (test code = 379) CHLORIDE (BEAKER) 111 meq/L 98-107 H (test code = 382) CO2 (BEAKER) (test 18 meq/L 22-29 L code = 355) BLOOD UREA NITROGEN 13 mg/dL 7-21 (BEAKER) (test code = 354) CREATININE (BEAKER) 0.67 mg/dL 0.57-1.25 (test code = 358) GLUCOSE RANDOM 88 mg/dL 70-105 (BEAKER) (test code = 652) CALCIUM (BEAKER) 8.9 mg/dL 8.4-10.2 (test code = 697) EGFR (BEAKER) (test 87 mL/min/1.73 ESTIMA ROSLYN GFR IS code = 1092) sq m NOT ACCURATE CREATININE CLEARANCE IN PREDICTING GLOMERULAR FILTRATION RATE . ESTIMATED GFR I S NOT APPLICABLE FOR DIALYSIS PATIEN TS. CBC (HEMOGRAM ONLY)2018-01-11 05:46:00 Test Item Value [...] (BEAKER) (test code = 413) BASIC METABOLIC [id number] 05:44:00 Test Item Value Reference Range Interpretation [...] 697) EGFR (BEAKER) (test 75 mL/min/1.73 ESTIMA ROSLYN GFR IS code = 1092) sq m [...] 413) CBC WITH PLATELET COUNT + MANUAL [id number] 16:02:00 Test Item Value Reference Range Interpretation [...] 0-1 PERCENT (BEAKER) (test code = 2801) [id number] 11:33:00 Test Item Value Reference Range Interpretation Comments ALBUMIN (BEAKER) (test code = 1145) 4.2 g/dL 3.5-5.0 [id number] 13:50:00 Test Item Value Reference Range Interpretation Comments SODIUM (BEAKER) (test code = 381) 138 meq/L 136-145 POTASSIUM (BEAKER) (test code = 4.7 meq/L 3.5-5.1 379) CHLORIDE (BEAKER) (test code = 382) 109 meq/L 98-107 H CO2 (BEAKER) (test code = 355) 22 meq/L 22-29 BUN AND [id number] 13:50:00 Test Item Value Reference Range Interpretation Comments BLOOD UREA NITROGEN 20 mg/dL 7-21 (BEAKER) (test code = 354) CREATININE (BEAKER) 0.78 mg/dL 0.57-1.25 (test code = 358) EGFR (BEAKER) (test 73 mL/min/1.73 ESTIMA ROSLYN GFR IS code = 1092) sq m NOT ACCURATE CREATININE CLEARANCE IN PREDICTING GLOMERULAR FILTRATION RATE . ESTIMATED GFR I S NOT APPLICABLE FOR DIALYSIS PATIEN TS. [id number] 13:12:00 Test Item Value Reference Range Interpretation Comments HEMOGLOBIN (BEAKER) (test code = 11.8 GM/DL 11.2-15.7 410)
[2021-05-29] MEDS ORDERED: NA CHLORIDE 0.9% 500 ML ONE (01:13)
[2021-05-29] MEDS ORDERED: NA CHLORIDE 0.9% 1,000 ML ONE (01:13)
[2021-05-29] MEDS ORDERED: ONDANSETRON 4 MG/2 ML VIAL ONE (01:13)
[2021-05-29] MEDS ORDERED: cloNIDine HCL 0.1 MG TAB ONE (01:59)
[2021-05-29 02:37] LABS: Absolute Lymphocytes (CBC) 1.5 K/uL (0.7-4.9); Hematocrit 36.2 % (36.0-45.0); Lymphocytes % 11.9 % (15.3-44.8); MPV 7.6 fL (7.6-11.3); RBC Red Blood Cell Count 4.75 M/uL (3.86-4.86)
[2021-05-29 02:44] LABS: Albumin 2.4 g/dL (3.4-5.0); Bilirubin Direct 0.1 mg/dL (0-0.2); Bilirubin Total 0.4 mg/dL (0.2-1.0); Potassium 3.3 mmol/L (3.5-5.1); Protein, Total 7.6 g/dL (6.4-8.2)
[2021-05-29 03:08] LABS: Blood Morphology Comment NOT SEEN (NOT SEEN); Platelet Estimate INCR; Platelets, Giant OCC; White Blood Cell Scan OK (OK)
[2021-05-29 03:11] LABS: Urine Blood Trace-lysed (Negative); Urine Glucose Negative (Negative); Urine Protein Trace (Negative); Urine Specific Gravity 1.015 (1.005-1.030)
[2021-05-29] MEDS ORDERED: LABETALOL 20 MG/4ML SYRINGE IV ONE (05:18)
[2021-05-29 05:22] LABS: Urine Bacteria <20 /HPF (<20)
[2021-05-29] MEDS ORDERED: CEFTRIAXONE 1000 MG/VIAL ONE (06:10)
[2021-05-29] MEDS ORDERED: POTASSIUM CL SA 10 MEQ TAB PO ONE (06:10)
[2021-05-29] MEDS ORDERED: BISACODYL 10 MG RECTAL SUPP ONE ×2 (06:10→06:39)
--- NOTE | 2021-05-29 06:11 | EDPHYS ---
Physician Documentation [facility] Name: Kali Kumar Age: 71 yrs Sex: Female : 1950 Arrival Date: 05/29/2021 Time: 00:26 Bed 28 Private MD: ED Physician Hardy Alcantara HPI: 05/29 02:02 This 71 yrs old Unknown Female presents to ER via EMS with complaints of pkl Nausea/Vomiting. 02:02 The patient presents to the emergency department with nausea, vomiting. Onset: The pkl symptoms/episode began/occurred just prior to arrival, 1 hour(s) ago. Historical: - Allergies: 01:40 Codeine; mr2 - Home Meds: 01:38 Abilify Oral [Active]; Acetaminophen Oral [Active]; Aspirin Oral [Active]; atorvastatin mr2 Oral [Active]; Baclofen Oral [Active]; Buspirone Oral [Active]; carvedilol Oral [Active]; Ibuprofen Oral [Active]; Nifedipine Oral [Active]; levothyroxine oral [Active]; rivastigmine tartrate Oral [Active]; - PMHx: 01:38 Anxiety; Depression; Hemiplegia and Hemiparesis to Left dominant side; Hyperlipidemia; mr2 Major depressie disorder with psychotic symptoms; Hypothyroidism; Hypertension; MUSCLE WEAKNESS; - Immunization history:: Adult Immunizations up to date. - Social history:: Smoking status: Patient denies any tobacco usage or history of. ROS: 02:02 Eyes: Negative for injury, pain, redness, and discharge, ENT: Negative for injury, pkl pain, and discharge, Neck: Negative for injury, pain, and swelling, Cardiovascular: Negative for chest pain, palpitations, and edema, Respiratory: Negative for shortness of breath, cough, wheezing, and pleuritic chest pain. 02:02 Abdomen/GI: Positive for nausea and vomiting. 02:02 Back: Negative for acute changes. 02:02 : Negative for urinary symptoms. 02:02 MS/extremity: Negative for acute changes. 02:02 Skin: Negative for rash. 02:02 Neuro: Negative for altered mental status, loss of consciousness. Exam: 02:02 Head/Face: Normocephalic, atraumatic. Eyes: Pupils equal round and reactive to light, pkl extra-ocular motions intact. Lids and lashes normal. Conjunctiva and sclera are non-icteric and not injected. Cornea within normal limits. Periorbital areas with no swelling, redness, or edema. ENT: Nares patent. No nasal discharge, no septal abnormalities noted. Tympanic membranes are normal and external auditory canals are clear. Oropharynx with no redness, swelling, or masses, exudates, or evidence of obstruction, uvula midline. Mucous membranes moist. Neck: Trachea midline, no thyromegaly or masses palpated, and no cervical lymphadenopathy. Supple, full range of motion without nuchal rigidity, or vertebral point tenderness. No Meningismus. Chest/axilla: Normal chest wall appearance and motion. Nontender with no deformity. No lesions are appreciated. Cardiovascular: Regular rate and rhythm with a normal S1 and S2. No gallops, murmurs, or rubs. Normal PMI, no JVD. No pulse deficits. Respiratory: Lungs have equal breath sounds bilaterally, clear to auscultation and percussion. No rales, rhonchi or wheezes noted. No increased work of breathing, no retractions or nasal flaring. 02:02 Abdomen/GI: Bowel sounds: normal, Palpation: abdomen is soft and non-tender, in all quadrants. 02:02 Back: Exam negative for acute changes. 02:02 : Exam negative for acute changes. 02:02 Musculoskeletal/extremity: Exam is negative for acute changes. 02:02 Skin: Exam negative for rash. 02:02 Neuro: Orientation: is normal, Mentation: is normal, Cranial nerves: grossly normal, Motor: moves all fours. Vital Signs: 01:22 BP 210 / 82; Pulse 105; Resp 18; Temp 98.2; Pulse Ox 100% on R/A; Weight 86.18 kg; mr2 Height 5 ft. 2 in. (157.48 cm); Pain 06/01; 04:00 BP 201 / 99; Pulse 96; Resp 18; Temp 98.4; Pulse Ox 99% on R/A; iw 01:22 Body Mass Index 34.75 (86.18 kg, 157.48 cm) mr2 MDM: 00:26 Patient medically screened. pkl 06:07 Data reviewed: vital signs, nurses notes, lab test result(s), radiologic studies, CT pkl scan. 05/29 01:01 Order name: Basic Metabolic Panel; Complete Time: 03:09 pkl 05/29 01:01 Order name: CBC with Diff; Complete Time: 03:09 pkl 05/29 01:01 Order name: Hepatic Function; Complete Time: 03:09 pkl 05/29 01:01 Order name: Lipase; Complete Time: 03:09 pkl 05/29 02:46 Order name: CBC Smear Scan; Complete Time: 03:09 EDMS 05/29 03:11 Order name: Urine Dipstick-Ancillary; Complete Time: 03:49 EDMS 05/29 03:11 Order name: CT Abd/Pelvis - IV Contrast Only pkl 05/29 03:50 Order name: Urine Microscopic Only; Complete Time: 05:46 pkl 05/29 03:51 Order name: Urine Culture pkl 05/29 01:01 Order name: IV Saline Lock; Complete Time: 01:12 pkl 05/29 01:01 Order name: Labs collected and sent; Complete Time: 01:12 pkl 05/29 01:25 Order name: Urine Dipstick-Ancillary (obtain specimen) pkl Administered Medications: 01:12 Drug: NS 0.9% 500 ml Route: IV; Rate: bolus; Site: left antecubital; mr2 01:12 Drug: NS 0.9% 1000 ml Route: IV; Rate: 100 ml/hr; Site: left antecubital; mr2 01:12 Drug: Zofran (Ondansetron) 4 mg Route: IVP; Site: left antecubital; mr2 01:48 Drug: cloNIDine 0.1 mg Route: PO; mr2 03:28 Drug: K-Lyte (potassium) Effervescent Tablet 25 mEq Route: PO; mr2 06:00 Drug: Labetalol 20 mg Route: IVP; Infused Over: 2 mins; Site: right antecubital; mr2 06:10 Drug: Rocephin (cefTRIAXone) 1 grams Route: IV; Rate: calculated rate; Site: right mr2 antecubital; 06:39 Drug: Dulcolax (bisacodyl) Suppository 10 mg Route: [place]; mr2 06:39 Drug: Phenergan (promethazine) 12.5 mg Route: IVP; Site: right antecubital; mr2 Disposition Summary: 05/29/21 06:11 Discharge Ordered Location: Home pkl Problem: new pkl Symptoms: have improved pkl Condition: Stable pkl Diagnosis - Vomiting pkl - Vomiting. Urinary tract infection. Impacted stools pkl Followup: pkl - With: Private Physician - When: 1 - 2 days - Reason: Re-evaluation by your physician Discharge Instructions: - Discharge Summary Sheet pkl Forms: - Medication Reconciliation Form pkl - Thank You Letter pkl - Antibiotic Education pkl - Prescription Opioid Use pkl Prescriptions: - Zofran 4 mg Oral Tablet - take 1 tablet by ORAL route every 12 hours As needed; 10 tablet; Refills: 0, pkl Product Selection Permitted - Cipro 500 mg Oral Tablet - take 1 tablet by ORAL route every 12 hours for 7 days; 14 tablet; Refills: 0, pkl Product Selection Permitted Signatures: Dispatcher [employer] EDHardy Gao MD MD pkl Cheng Curran RN RN mr2 Corrections: (The following items were deleted from the chart) 03:51 03:50 Urine Culture+BA.LAB.BRZ ordered. EDMS EDMS
--- NOTE | 2021-05-29 06:11 | ER ---
Nurse's Notes [facility] Name: Kali Kumar Age: 71 yrs Sex: Female : 1950 Arrival Date: 05/29/2021 Time: 00:26 Bed 28 Private MD: Diagnosis: Vomiting;Vomiting. Urinary tract infection. Impacted stools Presentation: 05/29 01:22 Chief complaint: EMS states: per ems pt [facility]. mr2 early this am at 00:15 pt began complain of nausea and vomited x2. per facility pt has no recent history of illness or vomiting staff denies recent fever chills nausea diarrhea or sick contacts. pt currently denies any abd pain. Coronavirus screen: Vaccine status: Patient reports receiving the 2nd dose of the covid vaccine. Ebola Screen: No symptoms or risks identified at this time. Initial Sepsis Screen: Does the patient meet any 2 criteria? HR > 90 bpm. Does the patient have a suspected source of infection? No. Patient's initial sepsis screen is negative. Risk Assessment: Do you want to hurt yourself or someone else? Patient reports no desire to harm self or others. Onset of symptoms was May 29, 2021 at 00:15. 01:22 Method Of Arrival: EMS: [facility] mr2 01:22 Acuity: ISAIAS 3 mr2 Triage Assessment: 01:38 General: Appears distressed, uncomfortable, Behavior is anxious, fussy. Pain: Denies mr2 pain. GI: Reports nausea, vomiting. Historical: - Allergies: 01:40 Codeine; mr2 - Home Meds: 01:38 Abilify Oral [Active]; Acetaminophen Oral [Active]; Aspirin Oral [Active]; atorvastatin mr2 Oral [Active]; Baclofen Oral [Active]; Buspirone Oral [Active]; carvedilol Oral [Active]; Ibuprofen Oral [Active]; Nifedipine Oral [Active]; levothyroxine oral [Active]; rivastigmine tartrate Oral [Active]; - PMHx: 01:38 Anxiety; Depression; Hemiplegia and Hemiparesis to Left dominant side; Hyperlipidemia; mr2 Major depressie disorder with psychotic symptoms; Hypothyroidism; Hypertension; MUSCLE WEAKNESS; - Immunization history:: Adult Immunizations up to date. - Social history:: Smoking status: Patient denies any tobacco usage or history of. Screenin:20 Abuse screen: Denies threats or abuse. Denies injuries from another. Nutritional moise screening: No deficits noted. Tuberculosis screening: No symptoms or risk factors identified. Fall Risk Secondary diagnosis (15 points) CVA, IV access (20 points). Assessment: 08:20 GI: Abdomen is non-distended, Bowel sounds present X 4 quads. Abd is soft Abd is non moise tender. Vital Signs: 01:22 BP 210 / 82; Pulse 105; Resp 18; Temp 98.2; Pulse Ox 100% on R/A; Weight 86.18 kg; mr2 Height 5 ft. 2 in. (157.48 cm); Pain /; 04:00 BP 201 / 99; Pulse 96; Resp 18; Temp 98.4; Pulse Ox 99% on R/A; iw 01:22 Body Mass Index 34.75 (86.18 kg, 157.48 cm) mr2 ED Course: 00:26 Patient arrived in ED. wm 00:26 Hardy Alcantara MD is Attending Physician. pkl 00:36 Cheng Curran, BALJEET is Primary Nurse. mr2 01:12 Basic Metabolic Panel Sent. mr2 01:12 CBC with Diff Sent. mr2 01:12 Hepatic Function Sent. mr2 01:12 Lipase Sent. mr2 01:38 Triage completed. mr2 01:38 Arm band placed on. mr2 03:58 CT Abd/Pelvis - IV Contrast Only In Process Unspecified. EDMS 04:46 Urine Culture Sent. mr2 04:46 Urine Microscopic Only Sent. mr2 08:20 No provider procedures requiring assistance completed. Maintain EMS IV. Dressing moise intact. Gauge \T\ site: 20g RFA. 08:20 Patient has correct armband on for positive identification. Bed in low position. moise 09:18 IV discontinued, intact. moise Administered Medications: 01:12 Drug: NS 0.9% 500 ml Route: IV; Rate: bolus; Site: left antecubital; mr2 01:12 Drug: NS 0.9% 1000 ml Route: IV; Rate: 100 ml/hr; Site: left antecubital; mr2 01:12 Drug: Zofran (Ondansetron) 4 mg Route: IVP; Site: left antecubital; mr2 01:48 Drug: cloNIDine 0.1 mg Route: PO; mr2 03:28 Drug: K-Lyte (potassium) Effervescent Tablet 25 mEq Route: PO; mr2 06:00 Drug: Labetalol 20 mg Route: IVP; Infused Over: 2 mins; Site: right antecubital; mr2 06:10 Drug: Rocephin (cefTRIAXone) 1 grams Route: IV; Rate: calculated rate; Site: right mr2 antecubital; 06:39 Drug: Dulcolax (bisacodyl) Suppository 10 mg Route: MN; mr2 06:39 Drug: Phenergan (promethazine) 12.5 mg Route: IVP; Site: right antecubital; mr2 Outcome: 06:11 Discharge ordered by . maylin 09:18 Discharged to skilled nursing. Transfer form completed. 09:18 Condition: good 09:18 Discharge instructions given to patient, EMS, Prescriptions given X 2. 09:18 Patient left the ED. moise Signatures: Dispatcher [employer] EDMS Hardy Alcantara MD MD pkl Williams, Irene, RN RN Joy Merritt Mike, RN RN 2 Jessica Em RN RN
[2021-05-29] MEDS ORDERED: PROMETHAZINE INJ 25 MG/ML AMP ONE (06:18)
[2021-05-29 09:25] VITALS: BP 201/99; TEMP 98.4; O2SAT 99
--- NOTE | 2021-05-29 11:51 | RAD REPORT ---
EXAM DESCRIPTION: CT - Abdomen Pelvis W Contrast - 05/29/2021 6:05 am CLINICAL HISTORY: 71 years Female vomiting TECHNIQUE: CT of the abdomen and pelvis using intravenous contrast in arterial and venous phases. Al l CT scans at this facility use dose modulation, iterative reconstruction, and/or weight based dosing when appropriate to reduce radiation dose to as low as reasonably achievable. COMPARISON: 04/17/2020. FINDINGS: Lower chest: Lung bases are clear. Abdomen/Pelvis: Liver: No focal lesion. Gallbladder: Status post cholecystectomy. Pancreas: Within normal limits. Spleen: Within normal limits. Kidney: Mild right greater than left bilateral hydronephrosis and hydroureter without obstructing ure teral stone. No focal lesion. Adrenal glands: Within normal limits. Vascular structures: Atherosclerotic calcification of the aorta and its major branches. Bowel: Distention of the rectosigmoid containing large amount of stool. Diverticulosis without inflam matory changes.. Appendix: Not seen. Peritoneum: No free fluid or free air. Lymph Nodes: No lymphadenopathy. Reproductive: Status post hysterectomy. Urinary bladder: Distended. Osseous structures: Multilevel degenerative changes. Soft tissues: Unremarkable. IMPRESSION: 1. No bowel obstruction. 2. Distention of the rectosigmoid containing large amount of stool. 3. Distention of the urinary bladder with right greater than left mild bilateral hydronephrosis and h ydroureter due to reflux indicative of bladder outlet obstruction. This is probably secondary to the mass effect from the distended rectosigmoid containing large amount of impacted stool. Electronically signed by: Theo Juan MD 05/29/2021 5:20 AM PAN GREASER Due to temporary technical issues with the PACS/Fluency reporting system, reports are being signed by the in house radiologist without review as a courtesy to ensure prompt reporting. The interpreting r adiologist is fully responsible for the content of the report.
== END 2021-05-29 09:18 | disposition home or self-care (01) ==
LOC: ER 00:24
DX: N39.0 Urinary tract infection, site not specified (principal); K56.41 Fecal impaction; I10 Essential (primary) hypertension; G81.92 Hemiplegia, unspecified affecting left dominant side; Z88.5 Allergy status to narcotic agent
CPT/HCPCS: 87088; 85025; 87086; 80048; 36415; 80076; 83690; 74177; 99284; Q9967; J2550; J7040; J7030; J2405; 81003; 81015

== ENCOUNTER 2021-06-07 06:12 | Emergency (ER) | payer OTHER ==
--- OUTSIDE RECORDS SUMMARY | 2021-06-07 06:17 | XMS REPORT | Continuity of Care Document ---
:1950 Author Organization [facility] t Address [address] [place] [address] Care Team Providers Name Role Phone Sara Panchal DO Primary Care Physician Nicol Attending Clinician Unavailable Guido De La Cruz Attending Clinician Unavailable Conor Pike Attending Clinician Unavailable ESSIE Attending Clinician Unavailable Kulwinder Panchal Attending Clinician [phone] Jose Carrillo Attending Clinician Unavailable Lab, Fam Pob I Attending Clinician Unavailable GARTH Attending Clinician Unavailable Doctor Unassigned, Name Attending Clinician Unavailable Ursula RODRIGUEZ, L Attending Clinician MERRY ORTIZ Attending Clinician Unavailable Guido De La Cruz Admitting Clinician Unavailable Jose Carrillo Admitting Clinician Unavailable Nicol Admitting Clinician Unavailable ESSIE Admitting Clinician Unavailable MERRY ORTIZ Admitting Clinician Unavailable Payers Payer Name Policy Type Policy Number Effective Date Expiration Date S day [facility] [id number] [facility] [id number] 2018 MEDICARE GOLD 00:00:00 Problems Condition Condition [...] Active 2021-03-07 Me moria (finding) 01:35:22 l Clarence Dizziness (finding) Active Problem 03/07/2021 [facility] Delirium Problem Active 2021-03-07 Mem oria (disorder) 01:35:22 l Delirium Murray n (disorder) Active Problem 03/07/2021 [facility] Hypertensi Problem Active 2021-03-07 M emoria ve 01:35:22 l disorder, Clarence systemic Hypertensi arterial ve (disorder) disorder, systemic [...] Univers XACIN INGREDI 12-26 ity of 00:00: [place] [address] [facility] LEVOFLOX DRUG Active N/V Univers ACIN INGREDI 12-26 ity of 00:00: [place] [address] [facility] Codeine Propensi Active Methodi ty to 11-15 st adverse 00:00: Hospita reaction 00 l s to drug codeine DA Active SV [facility] 01-15 00:00: [address] codeine DA Active SV unknown [facility] 01-15 00:00: [address] CODEINE DRUG Active Med NAUSEA ONLY Univ ers INGREDI 10-25 ity of 00:00: [place] [address] Medical [place] Levothyr Adverse Active Info Not [facility] Ciproflo Adverse Active Info Not [facility] xacin Reaction Available [facility] Clinics codeine codeine Active [facility] Family History Family Member Diagnosis Comments Start Date Stop Date Source Natural brother Diabetes [facility] Natural brother Heart disease Method [facility] Social History Social Habit Start Date Stop Date Quantity Comments Source Tobacco use and 2018-03-30 2018-03-30 Never used Scientologist exposure 00:00:00 00:00:00 Hospital Alcohol intake 2018-03-30 2018-03-30 Current Scientologist 00:00:00 00:00:00 non-drinker of Hospital alcohol (finding) Sex Ass[birth year] At [birth year] [facility]ologist 00:00:00 00:00:00 [facility] Smoking Status Start Date Stop Date Source Social History 2021-03-04 18:02:2021-03-04 18:02:09 [facility] Never smoker [facility] Hosp al Medications Ordered Filled Start Stop [...] 0-13 Refill(s) l de 0.2 MG 18:16: Clarence Oral Tablet 00 Clonidine 2020-05 Yes 0 Memoria Hydrochlori 0-13 Refill(s) l de 0.2 MG 18:16: Anton Oral Tablet 00 Clonidine 2020-05 Yes 0 Memoria Hydrochlori 0-13 Refill(s) l de 0.2 MG 18:16: [place]rence Oral Tablet 00 clopidogrel Yes 75 mg = 1 M emoria 75 mg oral 3-25 tab, PO, l tablet 19:25: Daily, 0 Anton 00 Refill(s) clopidogrel Yes 75 mg = 1 M emoria 75 mg oral 3-25 tab, PO, l tablet 19:25: Daily, 0 Clarence 00 Refill(s) Lorazepam 1 2020-0 Yes 1 mg = 1 Me moria MG Oral 3-25 tab, PO, l Tablet 19:25: TID, 0 Anton 00 Refill(s) losartan 50 2020-0 Yes 50 mg = 1 M emoria mg oral 3-25 tab, PO, l tablet 19:25: Daily, # Clarence 00 30 tab, 0 Refill(s) rosuvastati 2020-0 Yes 40 mg = 1 M emoria n 40 mg 3-25 cap, PO, l oral 19:25: Daily, 0 Clarence capsule 00 Refill(s) doxepin 10 2020-0 Yes 10 mg = 1 Me moria mg oral 3-25 cap, PO, l capsule 19:25: Bedtime, # Herm anirudh 00 30 cap, 0 Refill(s) Lorazepam 1 2020-0 Yes 1 mg = 1 Me moria MG Oral 3-25 tab, PO, l Tablet 19:25: TID, 0 Clarence 00 Refill(s) losartan 50 2019-0 Yes 50 [...] PO, l capsule 19:25: Bedtime, # Herm aniruhd 00 30 cap, 0 Refill(s) clopidogrel 2020-0 Yes 75 mg = 1 M emoria 75 mg oral 3-25 tab, PO, l tablet 19:25: Daily, 0 Clarence 00 Refill(s) Lorazepam 1 2020-0 Yes 1 mg = 1 Me moria MG Oral 3-25 tab, PO, l Tablet 19:25: TID, 0 [place]rence 00 Refill(s) losartan 50 2020-0 Yes 50 mg = 1 M emoria mg oral 3-25 tab, PO, l tablet 19:25: Daily, # Clarence 00 30 tab, 0 Refill(s) rosuvastati 2020-0 [...] tab, PO, l tablet 19:25: Daily, 0 Clarence 00 Refill(s) Lorazepam 1 2020-0 Yes 1 mg = 1 Me moria MG Oral 3-25 tab, PO, l Tablet 19:25: TID, 0 Clarence 00 Refill(s) losartan 50 2020-0 Yes 50 [...] tab, PO, l tablet 19:25: Daily, 0 Clarence 00 Refill(s) Lorazepam 1 2020-0 Yes 1 mg = 1 Me moria MG Oral 3-25 tab, PO, l Tablet 19:25: TID, 0 Anton 00 Refill(s) losartan 50 2020-0 Yes 50 mg = 1 M emoria mg oral 3-25 tab, PO, l tablet 19:25: Daily, # Clarence 00 30 tab, 0 Refill(s) rosuvastati 2020-0 Yes 40 mg = 1 M emoria n 40 mg 3-25 cap, PO, l oral 19:25: Daily, 0 Clarence capsule 00 Refill(s) doxepin 10 2020-0 Yes [...] tab, PO, l Tablet 19:25: TID, 0 Clarence 00 Refill(s) losartan 50 2020-0 Yes 50 mg = 1 M emoria mg oral 3-25 tab, PO, l tablet 19:25: Daily, # Clarence 00 30 tab, 0 Refill(s) rosuvastati 2020-0 [...] tab, PO, l Tablet 18:46: Daily, 0 Clarence 00 Refill(s) levothyroxi 2020-0 Yes 100 Memori a ne 100 mcg 3-25 microgram l (0.1 mg) 18:46: = 1 tab, Lupe nn oral tablet 00 PO, Daily, 0 Refill(s) Amlodipine 2020-0 Yes 10 mg = 1 Me moria 10 MG Oral 3-25 tab, PO, l Tablet 18:46: Daily, # Clarence [Norvasc] 00 30 tab, 1 Refill(s) Hydralazine [...] tab, PO, l Tablet 18:46: Daily, # Clarence [[facility]] 00 30 tab, 1 Refill(s) Hydralazine 2020-0 [...] tab, PO, l Tablet 18:46: Daily, 0 Clarence 00 Refill(s) levothyroxi 2020-0 Yes 100 Memori a ne 100 mcg 3-25 microgram l (0.1 mg) 18:46: = 1 tab, Lupe nn oral tablet 00 PO, Daily, 0 Refill(s) Amlodipine 2020-0 Yes 10 mg = 1 Me moria 10 MG Oral 3-25 tab, PO, l Tablet 18:46: Daily, # [facility] 00 30 tab, 1 Refill(s) Hydralazine 2020-0 [...] tab, PO, l Tablet 18:46: Daily, 0 Clarence 00 Refill(s) levothyroxi 2020-0 Yes 100 Memori a ne 100 mcg 3-25 microgram l (0.1 mg) 18:46: = 1 tab, Lupe nn oral tablet 00 PO, Daily, 0 Refill(s) Amlodipine 2020-0 Yes 10 mg = 1 Me moria 10 MG Oral 3-25 tab, PO, l Tablet 18:46: Daily, # Anton [[facility] 00 30 tab, 1 Refill(s) [...] tab, PO, l Tablet 18:46: Daily, 0 Clarence 00 Refill(s) levothyroxi 2020-0 Yes 100 Memori [...] 18:04: mouth Medical tablet 59 daily . [facility] clopidogrel Yes 75mg QD Take 75 mg [...] Medical tablet 59 Center hydrALAZINE Yes 50mg Q.[id number] Take [address] [facility] (APRESOLINE 8-22 [id number] by mouth 3 [facility] - ) 50 [...] tablet 59 Center hydrALAZINE 0 Yes 50mg Q.[id number] Take [address] [facility] (APRESOLINE 8-22 [id number] by mouth 3 [facility] - ) 50 MG 18:04: 3D (three) Medical tablet 59 times Center daily. aspirin 81 Yes 81mg QD Take [address] MG EC 8-22 by mouth [facility] - tablet 18:04: daily. Medical 59 Center Levothyroxi Levothyroxi Yes Leora [address] ne Sodium ne Sodium Nuvia in the [facility] - morning on Memoria an empty l stomach Outpati ent Clinics Vital Signs Vital Name Observation Time Observation Value Comments Source Systolic (mm Hg) 2021-03-04 18:01:00 Rebel rial Anton Diastolic (mm Hg) 2021-03-04 18:01:00 Mem orial [place] Heart Rate 2021-03-04 18:01:00 [facility] Respitory Rate 2021-03-04 18:01:00 Memori al [place] Systolic (mm Hg) 2019-08-15 18:43:00 Rebel rial Clarence Diastolic (mm Hg) 2019-08-15 18:43:00 Mem orial [place] Heart Rate 2019-08-15 18:43:00 [facility] [place] Respitory Rate 2019-08-15 18:43:00 Memori al [place] Height 2019-08-15 18:43:00 147.32 cm [facility] Clarence Weight 2019-08-15 18:43:00 [facility] Anton BMI Calculated 2019-08-15 18:43:00 Memori al [place] Procedures Procedure Date / Time Performed Performing Clinician Sour e [id number] 2021-03-12 00:00:00 [facility] [id number] 2021-03-12 00:00:00 [facility] [id number] 2021-03-12 00:00:00 [facility] [id number] 2020-08-22 00:00:00 [facility] [id number] 2020-08-22 00:00:00 [facility] [id number] 2020-08-22 00:00:00 [facility] [id number] 2020-08-22 00:00:00 [facility] Carpal tunnel release [facility] Plan of Care Planned Activity Planned Date Details Comments Source Future Scheduled Test SHINGLES VACCINES (#1) [facility] [code = SHINGLES VACCINES (#1)] Future Scheduled Test 65+ PNEUMOCO[address] [facility] VACCINE (1 of 1 - PPSV23) [code = 65+ PNEUMOCOCCAL VACCINE (1 of 1 - PPSV23)] Future Scheduled Test INFLUENZA VACCINE [code [facility] = INFLUENZA VACCINE] Future Scheduled Test COVID-19 VACCINE (1) [facility] [code = COVID-19 VACCINE (1)] Future Scheduled Test Hepatitis C screening [facility] (procedure) [code = 004002653] Future Scheduled Test BREAST CANCER SCREENING [facility] [code = BREAST CANCER SCREENING] Future Scheduled Test COLONOSCOPY SCREENING [facility] [code = COLONOSCOPY SCREENING] Encounters Start End Encounter Admission Attending Care Care Encounter Source Date/Time Date/Time Type Type Clinicians Facility Department ID 2021-03-26 Inpatient Nicol, HCAWU HCAWU [id number] [facility] 09:00:[id number] [facility] 2021-03-06 Inpatient LYNNE EvansWU TELE [id number] [facility] 15:25:[address] [facility] 2020-08-22 Inpatient LYNNE PikeWU HCAWU [id number] [facility] 12:45:[id number] [facility] 2021-03-11 2021-04-03 Inpatient UR Nicol, LYNNEWU REHA [id number] [facility] 22:00:00 13:14:[address] [facility] 2021-03-11 2021-04-03 Inpatient UR Nicol, HCAWU REHA [id number] [facility] 22:00:00 13:14:[id number] [facility] 2021-03-20 2021-03-20 Outpatient STLMLC STLC [id number] [facility] Nate [facility]inas Outpati ent Clinics 2021-03-06 2021-03-11 Inpatient LYNNE EvansWU TELE [id number] [facility] 12:13:00 21:50:[address] [facility] 2021-03-06 2021-03-11 Inpatient EL Dorothy, LYNNEWU TELE [id number] [facility] 12:13:00 21:50:[id number] [facility] 2021-03-04 2021-03-05 Outpatient nullFlavo MNA [id number] Memoria 18:00:00 04:59:59 r Neurology 02 l [place] 2021-03-04 2021-03-04 Outpatient [facility]LMLC [facility] [id number] [facility] 2021-03-03 2021-03-03 Outpatient STLMLC [facility] [id number] [facility] 2021-02-24 2021-02-24 Outpatient STLMLC STLMLC [id number] [facility] 2021-02-12 2021-02-12 Outpatient [facility]LMLC [facility] [id number] [facility] 2021-01-15 2021-01-15 Outpatient [facility] [id number] [facility] 2021-01-15 2021-01-15 Outpatient [facility]ML[facility] [id number] [facility] 2020-12-01 2020-12-01 Outpatient [facility]LMLC [facility] [id number] [facility] 2020-11-07 2020-11-07 Outpatient [facility]LMLC [facility] [id number] [facility] 2020-09-18 2020-09-18 Outpatient ERICKSON_R [facility] [id number] [place] 05:40:00 05:40:00 [facility] 2020-09-18 2020-09-18 Outpatient Abdulkadir [facility] [id number] 00:00:00 00:00:00 Harry [id number] Kulwinder [id number] 2020-08-09 2020-08-09 Outpatient Gerardo, LYNNEWU SURG [id number] [facility] 09:30:00 09:30:00 [facility] [id number] [facility] 2020-08-05 2020-08-05 Outpatient ERICKSON_R [facility] [id number] [place] 10:12:00 10:12:00 316 [facility] 2020-08-04 2020-08-04 Outpatient ERICKSON_R [facility] [id number] [place] 04:58:00 04:58:00 315 [facility] 2020-08-04 2020-08-04 Outpatient Abdulkadir [facility] [id number] 00:00:00 00:00:00 Harry [id number] Kulwinder [id number] 2020-07-25 2020-07-25 Outpatient ERICKSON_R [facility] [id number] [place] 04:09:00 04:09:00 305 [facility] 2020-07-25 2020-07-25 Outpatient Abdulkadir [facility] [id number] 00:00:00 00:00:00 Harry [id number] Kulwinder [id number] 2020-07-08 2020-07-08 Outpatient ERICKSON_R [facility] [id number] [place] 12:08:00 12:08:00 216 [facility] 2020-06-30 2020-06-30 Outpatient ERICKSON_R [facility] [id number] [place] 05:33:00 05:33:00 208 [facility] 2020-06-26 2020-06-26 Outpatient ERICKSON_R [facility] [id number] [place] 12:25:00 12:25:00 204 [facility] 2020-06-23 2020-06-23 Outpatient ERICKSON_R [facility] [id number] [place] 04:11:00 04:11:00 201 [facility] 2020-06-23 2020-06-23 Outpatient Panchal, [facility] [id number] 00:00:00 00:00:00 Harry [id number] Kulwinder [id number] 2020-05-22 2020-05-22 Outpatient ERICKSON_R [facility] 84 [place] 12:57:00 12:57:00 231 [facility] 2020-05-20 2020-05-20 Outpatient ERICKSON_R [facility] [id number] [place] 03:17:00 03:17:00 229 [facility] Clin[facility] 2020-04-04 2020-04-04 Laboratory Lab, [facility] [id number] 17:37:06 17:57:06 Only Fam Pob I Health [id number] [place] 4.2.7.2.686 Professio [id number] nal [address] 2020-04-04 2020-04-04 Outpatient R [facility] [id number] Univers 17:40:00 17:40:00 [id number] [facility] 2020-04-04 2020-04-04 Outpatient R GARTH [facility] [id number] Univers 17:40:00 17:40:00 KRAIG [facility] 2019-09-27 2019-09-27 Ambulatory nullFlavo MNA [id number] Memoria 14:45:00 14:45:00 Pre-Reg r Neurology 01 l Oli [place] 2019-08-23 2019-08-23 [facility] [id number] 14:06:00 14:06:00 t [facility] Family Medicine l Medicine Outpati ent Clinics 2019-08-21 2019-08-21 Orders Doctor KRAIG [id number] 00:00:00 00:00:00 Only Unassigned, MARIEL [id number] [facility] 4.2.7.2.686 [id number] 2019-08-15 2019-08-16 Outpatient nullFlavo MNA [id number] Memoria 19:00:00 04:59:59 r Neurology 00 l [place] 2019-07-23 2019-07-23 [facility] [id number] 15:30:00 15:30:00 t Specialty/U Mary kes - Specialty rology Memori a /Urology Clinic l Clinic Outpati ent Clinics 2019-07-17 2019-07-17 Outpatient Brazazael Murot [id number] 10:30:00 10:30:00 t Specialty/U Mary curry - Specialty rology [facility] a /Urology Clinic l Clinic Outpati ent Clinics 2019-06-18 2019-06-18 RefVICTORIA Martinez [id number] 00:00:00 00:00:00 Chandu Salinas [facility] [id number] Surgical 4.2.7.2.686 Specialti [id number] es 198 [place] 2019-06-05 2019-06-05 Reffatuma Vergara [facility] [id number] 00:00:00 00:00:00 Chandu Salinas [facility] [id number] Surgical 4.2.7.2.686 Specialti [id number] es 198 [place] Results Test Description Test Time Test Comments [...] (antigen) in th e sample." BASIC METABOLIC [id number] 05:53:00 Test Item Value Reference Range Interpretation [...] 9.9 MG/DL 8.4-10.2 N CA) CBC W/AUTO [id number] 05:45:00 Test Item Value Reference Range Interpretation [...] = 0.00 K/mm3 0.0-0.1 N NRBC#) PLATELET [id number] 05:55:00 Test Item Value Reference Range Interpretation Comments PLATELET COUNT (test code = PLT) 561 K/MM3 129-368 H [id number] 05:45:00 Test Item Value Reference Range Interpretation Comments HEMOGLOBIN (test code = HGB) 9.9 G/DL 11.2-14.9 L - XR HIP W/PEL UNI 2+V [id number] 16:19:00 [facility] 1950 Sex: F Patient Name: RORY MATHEWS Unit No: [id number] EXAMS: CPT CODE: [id number] XR HIP W/PEL UNI 2+[place] [address] X-ray left hip. INDICATION: Pain FINDINGS: No [...] Technologist: Sydney Castillo RT Transcrpt Date/Tm/Trnsp: 03/27/2021 (9379) [email or web address] Orig Print D/T: S: 03/27/2021 (7583) [facility] NAME:RORY MATHEWS [id number] PHYS: [place] [address] : 1950 AGE: 70 SEX: F LOC: Z.313 A PHONE #: [phone] EXAM DATE: 03/27/2021 STATUS: ADM IN FAX #: [phone] RADIOLOGY NO: PAGE 1 Signed ReportBUN [id number] 16:37:00 Test Item Value Reference Range Interpretation Comments BLOOD UREA NITROGEN 21 MG/DL 7-17 H (test code = BUN) GLOMERULAR FILTRATION > 60 Report ing units: RATE (test code = GFR) ml/mi n/1.73 m2 (Modified MDRD Formula)Referen ce Range: > or = 6 0 ml/min/1.73 m2 CREATININE (test code 0.50 MG/DL 0.52-1.04 L = CREAT) PLATELET [id number] 10:05:00 Test Item Value Reference Range Interpretation Comments PLATELET COUNT (test code = PLT) 661 K/MM3 129-368 H [id number] 05:40:00 Test Item Value Reference Range Interpretation Comments HEMOGLOBIN (test code = HGB) 10.4 G/DL 11.2-14.9 L - XR HIP W/PEL UNI 2+V [id number] 14:38:00 [facility] : 1950 Sex: F Patient Name: RORY MATHEWS Unit No: [id number] EXAMS: CPT CODE: [id number] XR HIP W/PEL UNI 2+[place] [address] X-ray right hip. INDICATION: Pain FINDINGS: No [...] [email or web address] Orig Print D/T: S: 03/22/2021 (1441) [facility] NAME: RORY MATHEWS [id number] PHYS: [id number] - [place] [address] : 1950 AGE: 70 SEX: F LOC: Z.313 A PHONE #: [phone] EXAM DATE: 03/22/2021 STATUS: ADM IN FAX #: [phone] RADIOLOGY NO: PAGE 1 Signed ReportGLUCOSE BEDSIDE TESTING 2021-03-21 11:50:00 Test Item Value Reference Range Interpretation Comments GLUCOSE BEDSIDE TESTING (test code 104 MG/DL 60-99 H = GLUBED) BASIC METABOLIC [id number] 16:41:00 Test Item Value Reference Range Interpretation [...] AT 1426 BY Mary Gonzales AnCBC W/AUTO [id number] 16:23:00 Test Item Value Reference Range Interpretation [...] AT 1427 BY Mary Gonzales Asymptomatic IH [id number] 18:04:00 Test Item Value Reference Range Interpretation [...] virus (antigen) in the sample." BASIC METABOLIC [id number] 10:27:00 Test Item Value Reference Range Interpretation [...] 8.4-10.2 N CA) - CT HEAD/BRAIN W/O [id number] 10:07:00 [facility] : 1950 Sex: F Patient Name: RORY MATHEWS Unit No: [id number] EXAMS: CPT CODE: [id number] CT HEAD/BRAIN W/O CONT 87129 EXAM: CT BRAIN WITHOUT CONTRAST INDICATION: CVA [...] LYNNE Keon NAME: RORY MATHEWS PHYS: [place] [address] : 1950 AGE: 70 SEX: F LOC: Z.534 A PHONE #: [phone] EXAM DATE: 03/09/2021 STATUS: ADM IN FAX #: [phone] RAD #: D/C DT PAGE 1 Signed Report Patient Name: RORY MATHEWS Unit No: [id number] EXAMS: CPT CODE: [id number] CT HEAD/BRAIN W/O CONT 02372 <Continued> Orig Print D/T: S: 03/09/2021 (1010) FLAKITA Herbert NAME: RORY MATHEWS PHYS: [place] [address] : 1950 AGE: 70 SEX: F LOC: Z.534 A PHONE #: [phone] EXAM DATE: 03/09/2021 STATUS: ADM IN FAX #: [phone] RAD #: D/C DT PAGE 2 Signed ReportCBC W/AUTO [id number] 10:01:00 Test Item Value Reference Range Interpretation [...] = 0.00 K/mm3 0.0-0.1 N NRBC#) URINALYSIS [id number] 14:12:00 Test Item Value Reference Range Interpretation [...] = UACULT) SOURCE OF URINE: STRAIGHT CATHETERUA [id number] 14:12:00 Test Item Value Reference Range Interpretation Comments UA RBC (test code = RBCU) 3-5 RBC/HPF 0-3 A UA WBC (test code = XWBCU) 3-5 WBC/HPF 0-5 UA EPITHELIAL CELLS (test code = RARE EPI/HPF FEW EPIU) UA BACTERIA (test code = XBACU) FEW NONE UA MUCUS (test code = MUCU) SLIGHT #/LPF NONE SOURCE OF URINE: STRAIGHT CATHETER- XR CHEST [id number] 10:45:00 [facility] : 1950 Sex: F Patient Name: RORY MATHEWS Unit No: [id number] EXAMS: CPT CODE: [id number] XR CHEST 1V 77938 HISTORY: Suspected pneumonia Comparison to March 04, [...] (1045) [email or web address] Orig Print D/T: S: 03/08/2021 (1042) [facility] NAME: RORY MATHEWS [id number] PHYS: [place] [address] : 1950 AGE: 70 SEX: F LOC: Z.534 A PHONE #: [phone] EXAM DATE: 03/08/2021 STATUS: ADM IN FAX #: [phone] RADIOLOGY NO: PAGE 1 Signed ReportBASIC METABOLIC [id number] 06:31:00 Test Item Value Reference Range Interpretation [...] 9.5 MG/DL 8.4-10.2 N CA) CBC W/AUTO [id number] 06:09:00 Test Item Value Reference Range Interpretation [...] = 0.00 K/mm3 0.0-0.1 N NRBC#) VITAMIN [id number] 21:45:00 Test Item Value Reference Range Interpretation Comments VITAMIN B12 (test code = VITB12) 770 pg/mL 239-931 N FOLIC ACID BY [id number] 21:45:00 Test Item Value Reference Range Interpretation Comments FOLIC ACID BY WILFRIDO > 20.0 ng/mL REFERENCE VALUES: (test code = FOLR) NORMAL: 2.76 - >20 ng/ML DEFICIENT : 1.04 - 2.79 ng/ML THYROID STIMULATING [id number] 21:45:00 Test Item Value Reference Range Interpretation Comments THYROID STIMULATING 1.890 MIU/L 0.465-4.68 N Please b e aware that HORMONE (test code = bias re sults for TSH TSH) may occur forpa tient who are taking Biotin suppleme nts. [id number] 20:59:00 Test Item Value Reference Range Interpretation Comments AMMONIA (test code = AMM) 14 mcMOL/L 9-30 N [id number] 20:47:00 Test Item Value Reference Range Interpretation Comments AMMONIA (test code = AMM) mcMOL/L 9-30 T4 [id number] 20:47:00 Test Item Value Reference Range Interpretation Comments T4 FREE (test code = T4F) 1.7 NG/DL 0.78-2.19 N VITAMIN D [id number] 20:47:00 Test Item Value Reference Range Interpretation Comments VITAMIN D 25-HYDROXY (test code = 28.1 ng/mL 30.0-100.0 L VITD25) GLUCOSE BEDSIDE [id number] 20:13:00 Test Item Value Reference Range Interpretation Comments GLUCOSE BEDSIDE TESTING (test code 211 MG/DL 60-99 H = GLUBED) BASIC METABOLIC [id number] 06:28:00 Test Item Value Reference Range Interpretation [...] VERY HIGH...... ...>/= 190 mg/dL CBC W/AUTO [id number] 05:55:00 Test Item Value Reference Range Interpretation [...] 0.00 K/mm3 0.0-0.1 N NRBC#) BASIC METABOLIC [id number] 17:05:00 Test Item Value Reference Range Interpretation [...] = 9.7 MG/DL 8.4-10.2 CA) CBC W/AUTO [id number] 16:55:00 Test Item Value Reference Range Interpretation [...] code = 0.00 K/mm3 0.0-0.1 N NRBC#) ARTERY,[id number] 17:53:00 Test Item Value Reference Range Interpretation Comments ARTERY,PLAQUE (test code = ART) --------RUN DATE: 08/25/20 [facility] PAGE 1 RUN TIME: 1753 Specimen Inquiry RUN USER: INTERFACE --------PATIENT: MATTHEW MATHEWS LOC: [facility] U #: [id number] AGE/SX: 70/F ROOM: [facility] RE08/22/20REG DR: Nick [place] MD : 46 BED: A DIS: 04/05/21 STATUS: DIS IN TLOC: -------- SPEC #: [id number] RECD: 08/22/20 STATUS: JORDYN DUKES #: [id number] TREY: 08/22/[address]: Nick [place] MD ENTERED: 08/22/20 SP TYPE: ARTERY, PL OTHR DR: Kanwal Carrillo MD, Nioti R MD Pepper, Gregory S MDORDERED: DECAL, SURG PATH LVL 3 CODES: [id number] - ARTERY, NOS [id number] - ARTERY, NOS PLAQUE, NOS [id number] - ARTERY, NOS ATHEROSCLEROSIS COPIES TO: Kanwal Carrillo MD [id number] [place] [address] [email or web address] [address] [place] [address] [place] [address] [facility] [facility] [address] [place] [address] [place] [address] [facility] [address] [place] [address] ICD CODES: 440 - PROCEDURES: DECAL (08/22/20) SURG PATH LVL 3 (08/22/20) TISSUES: A. ARTERY, NOS - LT CAROTID PLAQUE CPT CODES CPT CODE(S): 02546 , 98653 , , , , , CONTINUED ON NEXT PAGE --------RUN DATE: 08/25/20 [place] - LAB PAGE 2 RUN TIME: 175 Specimen Inquiry RUN USER: INTERFACE --------SPEC #: [id number] PATIENT: MATTHEW MATHEWS #[id number] (Continued) FINAL DIAGNOSIS Left carotid plaque, endarterectomy: CALCIFIED ATHEROSCLEROTIC PLAQUE GROSS DESCRIPTION Left carotid plaque. Received is a yellow-pinzon, partially V-shaped segment of plaque (4.3 x 1 x 0.8 cm), sectioned to reveal a heavily calcified cut surface. Library [employer] Specialist sections are submitted for decalcification as A1. /tc/doreen MICROSCOPIC DESCRIPTION Left carotid plaque. The microscopic description is incorporated into the final diagnosis. /doreen Signed SIGNATURE ON FILE FlexciroJuan 08/25/20 9732 -------- END OF REPORT CBC W/AUTO [id number] 04:25:00 Test Item Value Reference Range Interpretation [...] K/mm3 0.0-0.1 N NRBC#) - XR CHEST [id number] 09:00:00 [facility] 1950 Sex: F Patient Name: MATTHEW MATHEWS Unit No: [id number] EXAMS: CPT CODE: [id number] XR CHEST 1V 58943 EXAM: Portable chest one view. Location code:J9 [...] TiffanieR.RR16 Orig Print D/T: S: 08/23/2020 (0903) [facility] NAME: MATTHEW MATHEWS [id number] PHYS: [place] [address] : 1950 AGE: 70 SEX: F LOC: FARZAD Locke PHONE #: [phone] EXAM DATE: 08/23/2020 STATUS: ADM IN FAX #: [phone] RADIOLOGY NO: PAGE 1 Signed ReportCBC W/AUTO [id number] 06:13:00 Test Item Value Reference Range Interpretation [...] = 0.00 K/mm3 0.0-0.1 N NRBC#) DIFFERENTIAL [id number] 06:13:00 Test Item Value Reference Range Interpretation Comments RBC MORPHOLOGY REQUIRED (test code = NORMAL RBCM) PLATELET ESTIMATE (test code = ADEQUATE ADEQUATE PLTEST) PLATELET MORPHOLOGY (test code = NORMAL NORMAL PLTMORPH) GLYCOSYLATED HEMOGLOBIN [id number] 05:34:00 Test Item Value Reference Range Interpretation [...] N (test code = MBG) BASIC METABOLIC [id number] 05:03:00 Test Item Value Reference Range Interpretation [...] code = 8.3 MG/DL 8.4-10.2 L CA) [id number] 05:03:00 Test Item Value Reference Range Interpretation Comments MAGNESIUM (test code = MAG) 1.9 MG/DL 1.6-2.3 N CBC W/AUTO [id number] 04:56:00 Test Item Value Reference Range Interpretation [...] = 0.00 K/mm3 0.0-0.1 N NRBC#) DIFFERENTIAL [id number] 04:56:00 Test Item Value Reference Range Interpretation Comments RBC MORPHOLOGY REQUIRED (test code = RBCM) PLATELET ESTIMATE (test code = PLTEST) ADEQUATE PLATELET MORPHOLOGY (test code = NORMAL PLTMORPH) CBC W/AUTO [id number] 04:56:00 Test Item Value Reference Range Interpretation [...] = 0.00 K/mm3 0.0-0.1 N NRBC#) DIFFERENTIAL [id number] 04:56:00 Test Item Value Reference Range Interpretation Comments RBC MORPHOLOGY REQUIRED (test code = RBCM) PLATELET ESTIMATE (test code = PLTEST) ADEQUATE PLATELET MORPHOLOGY (test code = NORMAL PLTMORPH) ARTERIAL BLOOD [id number] 13:25:00 Test Item Value Reference Range Interpretation [...] mated message] code = TEMPA) The system [employer] generated this result transmit roslyn reference range : 37. The reference r mel was not used to interpret this result as normal/abnormal . ABG SITE (test code = AL SITEA) ALLENS TEST (test NA CHECK code = ALLENS) FIO2 (test code = 28 % COHBGFFIO2) PaO2/[id number] 13:25:00 Test Item Value Reference Range Interpretation Comments PaO2/FiO2 (test code = [id number]) mm/Hg ARTERIAL BLOOD [id number] 13:25:00 Test Item Value Reference Range Interpretation [...] mated message] code = TEMPA) The system [employer] generated this result transmit roslyn reference range : 37. The reference r mel was not used to interpret this result as normal/abnormal . ABG SITE (test code = AL SITEA) ALLENS TEST (test NA CHECK code = ALLENS) FIO2 (test code = 28 % COHBGFFIO2) PaO2/[id number] 13:25:00 Test Item Value Reference Range Interpretation Comments PaO2/FiO2 (test code = ZRF4FOB9) 379.28 mm/Hg BASIC METABOLIC [id number] 12:56:00 Test Item Value Reference Range Interpretation [...] code = 8.3 MG/DL 8.4-10.2 L CA) [id number] 12:56:00 Test Item Value Reference Range Interpretation Comments MAGNESIUM (test code = MAG) 2.0 MG/DL 1.6-2.3 N CBC W/AUTO [id number] 12:52:00 Test Item Value Reference Range Interpretation [...] K/mm3 0.0-0.1 N NRBC#) - XR CHEST [id number] 12:22:00 [facility] : 1950 Sex: F Patient Name: MATTHEW MATHEWS Unit No: [id number] EXAMS: CPT CODE: [id number] XR CHEST 1V 91252 Chest Radiograph History: post op surgery Comparison: [...] (1222) TiffanieR.PMT Orig Print D/T: S: 08/22/2020 (3345) [facility] NAME: MATTHEW MATHEWS [id number] PHYS: [place] [address] : 1950 AGE: 70 SEX: F LOC: Z.SI05 A PHONE #: [phone] EXAM DATE: 08/22/2020 STATUS: ADM IN FAX #: [phone] RADIOLOGY NO: PAGE 1 Signed ReportCOVID 19 Asymptomatic IH [id number] 15:06:00 Test Item Value Reference Range Interpretation [...] (antigen) in the sample." HIV 12 AB [id number] 14:51:00 Test Item Value Reference Range Interpretation Comments HIV 1 2 COMBO AG/AB SCREEN AB/AG NON REACTIVE NONREACTIVE (test code = [id number]) - XR CHEST 2 [id number] 14:24:00 [facility] : 1950 Sex: F Patient Name: MATTHEW MATHEWS Unit No: [id number] EXAMS: CPT CODE: [id number] XR CHEST 2 V 04945 Location code: B2 HISTORY: Preop, endarterectomy TECHNIQUE: [...] Technologist: Rene Pichardo RT(R) Transcrpt Date/Tm/Trnsp: 08/20/2020 (8154) [email or web address] Orig Print D/T: S: 08/20/2020 (1795) [facility] NAME: MATTHEW MATHEWS [address] PHYS: [place] [address] : 1950 AGE: 70 SEX: F LOC: Z.3AHU PHONE #: [phone] EXAM DATE: 08/20/2020 STATUS: PRE IN FAX #: [phone] RADIOLOGY NO: PAGE 1 Signed ReportBASIC METABOLIC [id number] 14:04:00 Test Item Value Reference Range Interpretation [...] = 9.3 MG/DL 8.4-10.2 N CA) PROTHROMBIN [id number] 13:48:00 Test Item Value Reference Range Interpretation [...] syste robby embolism. 3.0 - 4.5 PTT [id number] 13:48:00 Test Item Value Reference Range Interpretation Comments PTT ACTIVATED (test 66.2 SECONDS 25.1-36.5 HH CALLED T Beverly JOSEPH G code = APTT) & READBACK ON 08/20/20 AT 134 7 BY Jay Olguin CBC W/AUTO [id number] 13:17:00 Test Item Value Reference Range Interpretation [...] 0.00 K/mm3 0.0-0.1 N NRBC#) BASIC METABOLIC [id number] 06:51:00 Test Item Value Reference Range Interpretation [...] 0-189 mg/dL VERY HIGH...... ...>/= 190 mg/dL [id number] 06:51:00 Test Item Value Reference Range Interpretation Comments MAGNESIUM (test code = MAG) 2.5 MG/DL 1.6-2.3 H BASIC METABOLIC [id number] 06:40:00 Test Item Value Reference Range Interpretation [...] LDL (test MG/DL 0-99 code = LDL) [id number] 06:40:00 Test Item Value Reference Range Interpretation Comments MAGNESIUM (test code = MAG) 2.5 MG/DL 1.6-2.3 H PROTHROMBIN [id number] 06:35:00 Test Item Value Reference Range Interpretation [...] syste robby embolism. 3.0 - 4.5 PTT [id number] 06:35:00 Test Item Value Reference Range Interpretation Comments PTT ACTIVATED (test code = APTT) 51.6 SECONDS 25.1-36.5 H CBC W/AUTO [id number] 06:23:00 Test Item Value Reference Range Interpretation [...] 0.0-0.1 N NRBC#) COVID 19 Asymptomatic IH [id number] 05:51:00 Test Item Value Reference Range Interpretation [...] of virus (antigen) in the sample." CHEM [id number] 20:09:0027[facility] [id number] 20:09:000.95 [facility]annCHEM [id number] 20:09:0060[facility]ann[facility] PANEL 2019-08-15 20:09:0070[facility]ann[facility] [id number] 20:09:0028[facility] [id number] 20:09:0027[facility] [id number] 20:09:000.95[facility]ann[facility] [id number] 20:09:0060[facility] [id number] 20:09:0070[facility]ann[facility] [id number] 20:09:0028 [facility] [id number] 20:09:0027[facility]ann[facility] PANEL 2019-08-15 20:09:000.95[facility] [id number] 20:09:0060[facility]ann[facility] [id number] 20:09:0070[facility] [id number] 20:09:0028[facility]ann[facility] [id number] 20:09:0027[facility] [id number] 20:09:000.95[facility] [id number] 20:09:0060 [facility] [id number] 20:09:0070[facility]ann[facility] PANEL 2019-08-15 20:09:0028[facility] [id number] 20:09:0027[facility] [id number] 20:09:000.95[facility] [id number] 20:09:0060[facility] [id number] 20:09:0070[facility] [id number] 20:09:0028[facility]ann[facility] [id number] 20:09:0027 [facility] [id number] 20:09:000.95[facility]ann[facility]M PANEL 2019-08-15 20:09:0060[facility]ann[facility] [id number] 20:09:0070[facility]ann[facility] [id number] 20:09:0028[facility]annTISSUE [id number] 13:10:00Surgical Pathology Report Case: [id number] Authorizing Provider: Cornelio Ortiz MD Collected: 01/09/2018 1704 Ordering Location: [facility] Received: 01/10/2018 0831 SERVICES Pathologist: Avery Leal MD Specimen: Large Intestine, Colon - Rectosigmoid, rectosigmoid and donuts A. RECTUM AND SIGMOID COLON, LAPAROSCOPIC LOW ANTERIOR RESECTION: COLON WITH DIVERTICULAR DISEASE.NEGATIVE FOR DYSPLASIA OR INVASIVE CARCINOMA.SURGICAL MARGINS VIABLE. Signing Pathologist Direct Phone Line: [phone] signed by Avery Leal MD on 01/12/2018 at 1:10 [id number] of colon Rectosigmoid colon and donutsReceived fresh [...] code: A1-A2, parallel resection margins; A3-A9, customer retention representative sections of mucosal outpouchings; A10, customer retention representative sections of intestinal rings. DB/plPerformed. BASIC METABOLIC [id number] 06:17:00 Test Item Value Reference Range Interpretation [...] (BEAKER) (test code = 413) BASIC METABOLIC [id number] 05:44:00 Test Item Value Reference Range Interpretation [...] 413) CBC WITH PLATELET COUNT + MANUAL [id number] 16:02:00 Test Item Value Reference Range Interpretation [...] 0-1 PERCENT (BEAKER) (test code = 2801) [id number] 11:33:00 Test Item Value Reference Range Interpretation Comments ALBUMIN (BEAKER) (test code = 1145) 4.2 g/dL 3.5-5.0 [id number] 13:50:00 Test Item Value Reference Range Interpretation Comments SODIUM (BEAKER) (test code = 381) 138 meq/L 136-145 POTASSIUM (BEAKER) (test code = 4.7 meq/L 3.5-5.1 379) CHLORIDE (BEAKER) (test code = 382) 109 meq/L 98-107 H CO2 (BEAKER) (test code = 355) 22 meq/L 22-29 BUN AND [id number] 13:50:00 Test Item Value Reference Range Interpretation Comments BLOOD UREA NITROGEN 20 mg/dL 7-21 (BEAKER) (test code = 354) CREATININE (BEAKER) 0.78 mg/dL 0.57-1.25 (test code = 358) EGFR (BEAKER) (test 73 mL/min/1.73 ESTIMA ROSLYN GFR IS code = 1092) sq m NOT ACCURATE CREATININE CLEARANCE IN PREDICTING GLOMERULAR FILTRATION RATE . ESTIMATED GFR I S NOT APPLICABLE FOR DIALYSIS PATIEN TS. [id number] 13:12:00 Test Item Value Reference Range Interpretation Comments HEMOGLOBIN (BEAKER) (test code = 11.8 GM/DL 11.2-15.7 410)
[2021-06-07 06:58] LABS: Urine Blood Negative (Negative); Urine Glucose Negative (Negative); Urine Protein Trace (Negative)
[2021-06-07 07:19] LABS: Absolute Lymphocytes (CBC) 2.1 K/uL (0.7-4.9); Hematocrit 30.8 % (36.0-45.0); Lymphocytes % 18.7 % (15.3-44.8); MPV 7.3 fL (7.6-11.3); RBC Red Blood Cell Count 4.03 M/uL (3.86-4.86)
[2021-06-07 07:37] LABS: Protime INR 1.18
[2021-06-07] MEDS ORDERED: CEFTRIAXONE 1000 MG/VIAL ONE (07:46)
[2021-06-07 07:47] LABS: ALT/SGPT 11 U/L (12-78); AST/SGOT 14 U/L (15-37); Albumin 2.1 g/dL (3.4-5.0); Alkaline Phosphatase 116 U/L (45-117); BUN Blood Urea Nitrogen 15 mg/dL (7-18); Bicarbonate 26 mmol/L (21-32); Bilirubin Direct 0.1 mg/dL (0-0.2); Bilirubin Total 0.3 mg/dL (0.2-1.0); Glucose Level 97 mg/dL (74-106); Magnesium 1.5 mg/dL (1.8-2.4); NT PRO-BNP 507 pg/mL (<125); Potassium 3.3 mmol/L (3.5-5.1); Protein, Total 6.6 g/dL (6.4-8.2); Sodium Level 139 mmol/L (136-145)
[2021-06-07] MEDS ORDERED: METRONIDAZOLE 500mg IVPB 500 MG/100 ML BAG IV ONE (07:47)
[2021-06-07] MEDS ORDERED: NA CHLORIDE 0.9% 50 ML ONE (07:47)
--- NOTE | 2021-06-07 08:55 | RAD REPORT ---
EXAM DESCRIPTION: CTAbdomen Pelvis W Contrast - 06/07/2021 8:05 am CLINICAL HISTORY: Abdominal pain. GI BLEED COMPARISON: Abdomen Pelvis W Contrast dated 05/29/2021; Abdomen Pelvis W Contrast dated 04/17/2020 ; Abdomen Pelvis W Contrast dated 11/22/2017 TECHNIQUE: Biphasic CT imaging of the abdomen and pelvis was performed with 100 ml non-ionic IV cont rast. All CT scans are performed using dose optimization technique as appropriate and may include automated exposure control or mA/KV adjustment according to patient size. FINDINGS: The lung bases are clear. The liver, spleen, pancreas, adrenal glands and left kidney are within normal limits. Moderate right hydronephrosis. Cholecystectomy. Moderate aortic atherosclerosis. No bowel obstruction, free air, free fluid or abscess. Nonvisualized appendix. Significant stool impa ction in the. No evidence of significant lymphadenopathy. Decompressed urinary bladder containing ai r and a Zamarripa catheter. No suspicious bony findings. IMPRESSION: Marked fecal impaction in the rectum. Moderate right hydronephrosis, similar to 05/29/2021 study. No obstructing calculus seen.
--- NOTE | 2021-06-07 08:59 | RAD REPORT ---
EXAM DESCRIPTION: RAD - Chest Single View - 06/07/2021 8:41 am CLINICAL HISTORY: GI bleed Chest pain. COMPARISON: Chest Single View dated 05/16/2021; Chest Single View dated 03/04/2021; Chest Single Vie w dated 03/03/2021; Chest Pa And Lat (2 Views) dated 07/20/2019 FINDINGS: Portable technique limits examination quality. The lungs are emphysematous but grossly clear. The heart is normal in size. No displaced fractures. IMPRESSION: No acute intrathoracic process suspected.
[2021-06-07 11:32] LABS: Urine Blood 2+ (Negative); Urine Glucose Negative (Negative); Urine Protein Trace (Negative); Urine Specific Gravity 1.015 (1.005-1.030)
[2021-06-07 12:05] LABS: Urine Bacteria LOADED /HPF (<20); Urine RBC <5 /HPF (NONE SEEN)
--- NOTE | 2021-06-07 13:16 | EDPHYS ---
Physician Documentation [facility] Name: Kali Kumar Age: 71 yrs Sex: Female : 1950 Arrival Date: 06/07/2021 Time: 06:12 Bed 6 Private MD: ED Physician Lexx Stewart HPI: 06/07 06:51 This 71 yrs old Unknown Female presents to ER via EMS with complaints of Rectal pm1 Bleeding. 06:51 The patient presents to the emergency department with bleeding from the rectum/anus. pm1 Onset: The symptoms/episode began/occurred this morning. Context: the patient has no known special context relating to the rectal area complaint(s). Associate signs and symptoms: The patient has no apparent associated signs or symptoms. The patient has not recently seen a physician. Historical: - Allergies: 06:17 Codeine; al4 - PMHx: 06:17 Anxiety; Depression; Hemiplegia and Hemiparesis to Left dominant side; Hyperlipidemia; al4 Hypertension; Hypothyroidism; Major depressie disorder with psychotic symptoms; MUSCLE WEAKNESS; - Immunization history:: Adult Immunizations up to date. - Social history:: Smoking status: unknown. ROS: 06:51 Constitutional: Negative for fever, chills, and weight loss, Cardiovascular: Negative pm1 for chest pain, palpitations, and edema, Respiratory: Negative for shortness of breath, cough, wheezing, and pleuritic chest pain, MS/Extremity: Negative for injury and deformity, Skin: Negative for injury, rash, and discoloration. 06:51 Abdomen/GI: Positive for rectal bleeding, Negative for nausea, vomiting, and diarrhea. 06:51 All other systems are negative. Exam: 06:51 Constitutional: This is a well developed, well nourished patient who is awake, alert, pm1 and in no acute distress. Head/Face: Normocephalic, atraumatic. 06:51 Skin: Warm, dry with normal turgor. Normal color with no rashes, no lesions, and no evidence of cellulitis. MS/ Extremity: Pulses equal, no cyanosis. Neurovascular intact. Full, normal range of motion. 06:51 Eyes: Exam is negative for acute changes, Extraocular movements: no acute changes, Conjunctiva: no acute changes, no injection. 06:51 ENT: Exam is negative for acute changes, Mouth: no acute changes, Lips: normal, moist, Oral mucosa: normal, pink and intact, moist. 06:51 Cardiovascular: Exam negative for acute changes, Rate: normal, Rhythm: regular, Pulses: no pulse deficits are appreciated, Heart sounds: normal, normal S1and S2. 06:51 Respiratory: Exam negative for acute changes, respiratory distress, shortness of breath, Breath sounds: are clear throughout. 06:51 Abdomen/GI: Inspection: distention of bladder, Palpation: abdomen is soft and non-tender, in all quadrants, Rectal exam: Stool: small amount of bright red blood, hemorrhoid(s), external, without bleeding, without inflammation, without thrombosis, without pain, Adithya DELONG. 06:51 Neuro: Exam negative for acute changes, Orientation: to person, Not oriented to place, time, situation. Vital Signs: 06:14 BP 113 / 43; Pulse 81; Resp 14; Temp 97.8; Pain 0/10; al4 06:45 BP 128 / 71; Pulse 83; Resp 16 S; Pulse Ox 100% on R/A; al4 07:56 BP 161 / 55; Pulse 84; Resp 18 S; Pulse Ox 100% on R/A; jd3 09:13 BP 148 / 47; Pulse 81; Resp 15 S; Pulse Ox 100% on R/A; jd3 10:31 BP 146 / 58; Pulse 76; Resp 16 S; Pulse Ox 100% on R/A; jd3 12:59 BP 148 / 46; Pulse 71; Resp 17 S; Pulse Ox 99% on R/A; jd3 15:56 BP 117 / 56; Pulse 72; Resp 17; Temp 97.6(A); Pulse Ox 98% ; jh6 16:20 BP 117 / 42; Pulse 71; Resp 17 S; Pulse Ox 99% on R/A; jd3 Procedures: 10:32 Fecal disimpaction: digital disimpaction was performed, with a large amount of stool pm1 expressed. The patient tolerated the intervention well, lilian Orellana . MDM: 06:30 Patient medically screened. pm1 13:02 Data reviewed: vital signs. Data interpreted: Pulse oximetry: on room air is 99 %. pm1 Interpretation: normal. Counseling: I had a detailed discussion with the patient and/or guardian regarding: the historical points, exam findings, and any diagnostic results supporting the discharge/admit diagnosis, lab results, radiology results, the need for outpatient follow up, a family practitioner, to return to the emergency department if symptoms worsen or persist or if there are any questions or concerns that arise at home, Discussed with Neo Kumar, son who has power of commercial litigation attorney, plan of care for patient's fecal impaction and urinary tract infection and disposition back to detention. He is agreeable with the plan and had no further questions. 06/07 06:41 Order name: Basic Metabolic Panel; Complete Time: 07:54 pm1 06/07 06:41 Order name: CBC with Diff; Complete Time: 07:36 pm1 06/07 06:41 Order name: LFT's; Complete Time: 07:54 pm1 06/07 06:41 Order name: Magnesium; Complete Time: 07:54 pm06/07 06:41 Order name: NT PRO-BNP; Complete Time: 07:54 pm1 06/07 06:41 Order name: PT-INR; Complete Time: 07:41 pm1 06/07 06:41 Order name: Troponin HS; Complete Time: 07:54 pm06/07 06:41 Order name: Lactate; Complete Time: 07:48 pm1 06/07 06:41 Order name: Type And Screen; Complete Time: 09:41 pm06/07 06:44 Order name: COVID-19 SARS RT PCR (Document "Date of Onset" if Symptomatic); Complete pm1 Time: 09:06/07 06:58 Order name: Urine Dipstick-Ancillary; Complete Time: 07:16 EDMS 06/07 07:16 Order name: Urine Microscopic Only; Complete Time: 12:11 pm06/07 11:32 Order name: Urine Dipstick-Ancillary; Complete Time: 11:33 EDMS 06/07 12:06 Order name: Urine Culture EDMS 06/07 06:41 Order name: CT Abd/Pelvis - IV Contrast Only; Complete Time: 09:01 pm06/07 06:41 Order name: XRAY Chest (1 view); Complete Time: 09:01 pm06/07 06:41 Order name: EKG; Complete Time: 06:42 pm06/07 06:41 Order name: Cardiac monitoring; Complete Time: 06:53 pm06/07 06:41 Order name: EKG - Nurse/Tech; Complete Time: 06:53 pm1 06/07 06:41 Order name: IV Saline Lock; Complete Time: 06:53 pm1 06/07 06:41 Order name: Labs collected and sent; Complete Time: 07:09 pm1 06/07 06:41 Order name: O2 Per Protocol; Complete Time: 06:53 pm1 06/07 06:41 Order name: O2 Sat Monitoring; Complete Time: 06:53 pm1 06/07 06:41 Order name: Urine Dipstick-Ancillary (obtain specimen); Complete Time: 06:59 pm1 Administered Medications: 07:45 Drug: Rocephin (cefTRIAXone) 1 grams Route: IV; Rate: calculated rate; Site: right jd3 antecubital; 15:57 Follow up: IV Status: Completed infusion [facility] 07:55 Drug: Flagyl (metroNIDAZOLE) 500 mg Volume: 100 ml; Route: IVPB; Rate: 200 ml/hr; jd3 Infused Over: 30 mins; Site: right antecubital; 09:00 Follow up: IV Status: Completed infusion [facility] Disposition: 06/08 01:58 Co-signature as Attending Physician, Lexx Stewart MD. mh7 Disposition Summary: 06/07/21 13:16 Discharge Ordered Location: Home pm1 Problem: new pm1 Symptoms: have improved pm1 Condition: Stable pm1 Diagnosis - Fecal impaction pm1 - UTI/ Urinary tract infection, site not specified pm1 Followup: pm1 - With: Emergency Department - When: As needed - Reason: Worsening of condition Followup: pm1 - With: Private Physician - When: 2 - 3 days - Reason: Recheck today's complaints, Continuance of care, Re-evaluation by your physician Discharge Instructions: - Discharge Summary Sheet pm1 - Urinary Tract Infection, Adult pm1 - Fecal Impaction pm1 Forms: - Medication Reconciliation Form pm1 - Thank You Letter pm1 - Antibiotic Education pm1 - Prescription Opioid Use pm1 Prescriptions: - cefpodoxime 100 mg Oral Tablet - take 1 tablet by ORAL route every 12 hours for 10 days take with food; 20 pm1 tablet; Refills: 0, Product Selection Permitted Signatures: Dispatcher [employer] EDAlex Rasheed, HOWIE CLOD PULLER pm1 Gabriel Tobar RN RN jd3 Lexx Stewart MD MD mh7 Casey Downs4 Jina Eller RN jh6
--- NOTE | 2021-06-07 13:16 | ER ---
Nurse's Notes [facility] Name: Kali Kumar Age: 71 yrs Sex: Female : 1950 Arrival Date: 06/07/2021 Time: 06:12 Bed 6 Private MD: Diagnosis: Fecal impaction;UTI/ Urinary tract infection, site not specified Presentation: 06/07 06:14 Chief complaint: EMS states: they were called out because patient passed "an orange al4 size clot out of their rectum". EMS states that she is at her baseline per the nurse of [facility]. Coronavirus screen: At this time, the client does not indicate any symptoms associated with coronavirus-19. Ebola Screen: No symptoms or risks identified at this time. Initial Sepsis Screen: Does the patient meet any 2 criteria? Altered Mental Status. Does the patient have a suspected source of infection? No. Patient's initial sepsis screen is negative. Risk Assessment: Do you want to hurt yourself or someone else? Unable to obtain. Onset of symptoms was June 07, 2021. 06:14 Method Of Arrival: EMS: [facility] al4 06:14 Acuity: ISAIAS 3 al4 Historical: - Allergies: 06:17 Codeine; al4 - PMHx: 06:17 Anxiety; Depression; Hemiplegia and Hemiparesis to Left dominant side; Hyperlipidemia; al4 Hypertension; Hypothyroidism; Major depressie disorder with psychotic symptoms; MUSCLE WEAKNESS; - Immunization history:: Adult Immunizations up to date. - Social history:: Smoking status: unknown. Screenin:20 Abuse screen: Denies threats or abuse. Nutritional screening: No deficits noted. al4 Tuberculosis screening: No symptoms or risk factors identified. 06:34 Fall Risk No fall in past 12 months (0 pts). Secondary diagnosis (15 points) IV access al4 (20 points). Ambulatory Aid- None/Bed Rest/Nurse Assist (0 pts). Gait- Weak (10 pts.). Mental Status- Overestimates/Forgets Limitations (15 pts.). Total Schulz Fall Scale indicates High Risk Score (45 or more points). Assessment: 06:22 General: Appears in no apparent distress. comfortable, Behavior is flat, listless. al4 Pain: Unable to use pain scale. Patient is disoriented. patient did shake her head no when asked about pain. Neuro: Level of Consciousness is awake, listless, Oriented to person. Cardiovascular: Capillary refill < 3 seconds Patient's skin is warm and dry. Edema is 2+ to bilateral upper and bilateral lower extremities Rhythm is sinus rhythm. Respiratory: Airway is patent Respiratory effort is even, unlabored, Respiratory pattern is regular. GI: Abdomen is distended, Rectal exam: Bleeding noted, EMS stated patient passed "an orange size clot" this morning. : No signs and/or symptoms were reported regarding the genitourinary system. EENT: No signs and/or symptoms were reported regarding the EENT system. Derm: Skin temperature is warm. Musculoskeletal: No signs and/or symptoms reported regarding the musculoskeletal system. 07:56 General: Appears uncomfortable, ill, Behavior is restless. Pain: Complains of pain in jd3 abdomen. Neuro: Level of Consciousness is awake, lethargic, Oriented to person. Cardiovascular: Capillary refill < 3 seconds Patient's skin is warm and dry. Edema is 2+ to DOROTHY legs Rhythm is regular. Respiratory: Airway is patent Respiratory effort is even, unlabored, Respiratory pattern is regular, Denies cough, shortness of breath. GI: Abdomen is round non-distended, Abd is soft and non tender X 4 quads. : Zamarripa in place to gravity drainage 1.5 L output from Zamarripa Cath. Derm: Skin is intact, Skin is dry, Skin is normal, Skin temperature is warm. Musculoskeletal: No signs and/or symptoms reported regarding the musculoskeletal system. 09:13 Reassessment: Patient appears in no apparent distress at this time. No changes from jd3 previously documented assessment. Patient and/or family updated on plan of care and expected duration. Pain level reassessed. 10:25 Reassessment: Patient appears in no apparent distress at this time. No changes from jd3 previously documented assessment. Patient and/or family updated on plan of care and expected duration. Pain level reassessed. provider at bedside attempting disimpaction. 12:59 Reassessment: Patient appears in no apparent distress at this time. No changes from jd3 previously documented assessment. Patient and/or family updated on plan of care and expected duration. Pain level reassessed. awaiting disposition. 16:20 Reassessment: Patient appears in no apparent distress at this time. No changes from jd3 previously documented assessment. Patient and/or family updated on plan of care and expected duration. Pain level reassessed. waiting for 30 min on hold to give report for pt discharge with no answer at [place]. pt sent with EMS back to [place]. Vital Signs: 06:14 BP 113 / 43; Pulse 81; Resp 14; Temp 97.8; Pain 0/10; al4 06:45 BP 128 / 71; Pulse 83; Resp 16 S; Pulse Ox 100% on R/A; al4 07:56 BP 161 / 55; Pulse 84; Resp 18 S; Pulse Ox 100% on R/A; jd3 09:13 BP 148 / 47; Pulse 81; Resp 15 S; Pulse Ox 100% on R/A; jd3 10:31 BP 146 / 58; Pulse 76; Resp 16 S; Pulse Ox 100% on R/A; jd3 12:59 BP 148 / 46; Pulse 71; Resp 17 S; Pulse Ox 99% on R/A; jd3 15:56 BP 117 / 56; Pulse 72; Resp 17; Temp 97.6(A); Pulse Ox 98% ; jh6 16:20 BP 117 / 42; Pulse 71; Resp 17 S; Pulse Ox 99% on R/A; jd3 ED Course: 06:12 Patient arrived in ED. wm 06:17 Triage completed. al4 06:17 Arm band placed on. al4 06:20 Patient has correct armband on for positive identification. al4 06:25 Adithya Vizcaino, BALJEET is Primary Nurse. as6 06:25 Alex Robison NP is PHCP. pm1 06:25 Lexx Stewart MD is Attending Physician. pm1 06:32 Inserted saline lock: 22 gauge in right antecubital area, using aseptic technique. as6 Blood collected. 06:54 Zamarripa cath inserted, using sterile technique, 16 Fr., balloon inflated, to gravity al4 drainage, urine specimen collected. other inserted by BALJEET Haji and myself. 06:57 cardiac monitor technician on. Pulse ox on. NIBP on. Warm blanket given. Pillow given. al4 08:05 CT Abd/Pelvis - IV Contrast Only In Process Unspecified. EDMS 08:42 XRAY Chest (1 view) In Process Unspecified. EDMS 10:28 Served as a technology services manager during rectal exam. mb4 15:56 Zamarripa cath removed intact, balloon deflated. jh6 15:56 IV discontinued, intact, bleeding controlled, No redness/swelling at site. Pressure jh6 dressing applied. Administered Medications: 07:45 Drug: Rocephin (cefTRIAXone) 1 grams Route: IV; Rate: calculated rate; Site: right jd3 antecubital; 15:57 Follow up: IV Status: Completed infusion 6 07:55 Drug: Flagyl (metroNIDAZOLE) 500 mg Volume: 100 ml; Route: IVPB; Rate: 200 ml/hr; jd3 Infused Over: 30 mins; Site: right antecubital; 09:00 Follow up: IV Status: Completed infusion 6 Outcome: 13:16 Discharge ordered by MD. pm1 15:57 Discharged to longterm. 6 15:57 Condition: improved 15:57 Discharge instructions given to patient, longterm, Instructed on discharge instructions, follow up and referral plans. Demonstrated understanding of instructions, follow-up care, medications, Prescriptions given X 1. 16:21 Patient left the ED. jd3 Signatures: Dispatcher [employer] EDMS Alex Robison, WEAVER NEEDLE LOOM WEAVER NEEDLE LOOM pm1 Gabriel Tobar RN RN jd3 Kristy Alfonso mb4 Joy Merritt Ashby, RN RN as6 Jina Eller RN RN jh6 Casey Downs al4 Corrections: (The following items were deleted from the chart) 06:21 06:20 Fall Risk No fall in past 12 months (0 pts). IV access (20 points). Ambulatory al4 Aid- None/Bed Rest/Nurse Assist (0 pts). Gait- Weak (10 pts.). Mental Status- Overestimates/Forgets Limitations (15 pts.). Total Schulz Fall Scale indicates Low Risk Score (25-44 pts). Fall prevention measures have been instituted. Side Rails Up X 2 Placed close to Nursing Station 1:1 attendant Assigned to Pt. Frequent Obs/Assesments occuring al4 06:34 06:14 Acuity: ISAIAS 4 al4 al4 06:54 06:22 GI: Abdomen is non-distended, Abd is soft and non tender X 4 quads. EMS stated al4 patient passed "an orange size clot" this morning al4
[2021-06-07 16:38] VITALS: TEMP 97.6
[2021-06-07 16:40] VITALS: BP 117/42; O2SAT 99
== END 2021-06-07 16:21 | disposition home or self-care (01) ==
LOC: ER 06:12
DX: K56.41 Fecal impaction (principal); N39.0 Urinary tract infection, site not specified; Z88.6 Allergy status to analgesic agent; Z20.822 Contact with and (suspected) exposure to COVID-19
CPT/HCPCS: 96365; 93005; 87088; 85025; 87086; 80048; 36415; 86900; 83735; 86850; 85610; 86901; 80076; 83605; 84484; 83880; 74177; 71045; 51702; 99285; 96366; U0003; Q9967; 81003; 81015; 87077; 87186

== ENCOUNTER 2021-06-12 14:42 | Emergency (ER) | payer OTHER ==
--- OUTSIDE RECORDS SUMMARY | 2021-06-12 15:46 | XMS REPORT | Continuity of Care Document ---
:1950 Author Organization [facility] t Address [address] [place] [address] Care Team Providers Name Role Phone Panchal DO, C Primary Care Physician Nicol Attending Clinician Unavailable Guido De La Cruz Attending Clinician Unavailable Conor Pike Attending Clinician Unavailable ESSIE Attending Clinician Unavailable Kulwinder Panchal Attending Clinician [phone] Jose Carrillo Attending Clinician Unavailable Lab, Fam Pob I Attending Clinician Unavailable GARTH Attending Clinician Unavailable Doctor Unassigned, Name Attending Clinician Unavailable Ursula RODRIGUEZ L Attending Clinician MERRY ORTIZ Attending Clinician Unavailable Guido De La Cruz Admitting Clinician Unavailable Jose Carrillo Admitting Clinician Unavailable [place] Admitting Clinician Unavailable ESSIE Admitting Clinician Unavailable MERRY ORTIZ Admitting Clinician Unavailable Payers Payer Name Policy Type Policy Number Effective Date Expiration Date S day [facility] [id number] [facility] [id number] 2018 MEDICARE GOLD 00:00:00 Problems Condition Condition [...] Active 2021-03-07 Me moria (finding) 01:35:22 l Anton Dizziness (finding) Active Problem 03/07/2021 [facility] Delirium Problem Active 2021-03-07 Mem oria (disorder) 01:35:22 l Delirium Murray n (disorder) Active Problem 03/07/2021 [facility] Hypertensi Problem Active 2021-03-07 M emoria ve 01:35:22 l disorder, Anton systemic Hypertensi arterial ve (disorder) disorder, systemic [...] ents Source Name Type Date Date Clinician Ashleigh Propensi Active Itching, [facility] [...] Univers XACIN INGREDI 12-26 ity of 00:00: [place] [address] [address] LEVOFLOX DRUG Active N/V Univers ACIN INGREDI 12-26 ity of 00:00: [place] [address] [facility] [address] Codeine Propensi Active Methodi ty to 11-15 st adverse 00:00: Hospita reaction 00 l s to drug codeine DA Active SV [facility] 01-15 00:00: [address] codeine DA Active SV unknown [facility] 01-15 00:00: [address] CODEINE DRUG Active Med NAUSEA ONLY Univ ers INGREDI 10-25 ity of 00:00: [address] Branch codeine codeine Active Memoria Anton Levothyr Adverse Active Info Not [facility] Reaction Available [facility] Ciproflo Adverse Active Info Not [facility] xacin Reaction Available [facility] Family History Family Member Diagnosis Comments Start Date Stop Date Source Natural brother Diabetes [facility] Natural brother Heart disease [facility] Social History Social Habit Start Date Stop Date Quantity Comments Source Tobacco use and 2018-03-30 2018-03-30 Never used S[facility] exposure 00:00:00 00:00:00 Hospital Alcohol intake 2018-03-30 2018-03-30 Current Sikh 00:00:00 00:00:00 non-drinker of Hospital alcohol (finding) Sex Ass[birth year] At [birth year] S[facility] 00:00:00 00:00:00 [facility] Smoking Status Start Date Stop Date Source Social History 2021-03-04 18:02:2021-03-04 18:02:09 [facility] Never smoker [facility] Medications Ordered Filled Start Stop Current [...] 0-13 Refill(s) l de 0.2 MG 18:16: [place] Oral Tablet 00 Clonidine 2020-05 Yes 0 Memoria Hydrochlori 0-13 Refill(s) l de 0.2 MG 18:16: [place] Oral Tablet 00 clopidogrel Yes 75 mg [...] tab, PO, l Tablet 19:25: TID, 0 [place] 00 Refill(s) losartan 50 2020-0 Yes 50 mg = 1 M emoria mg oral 3-25 tab, PO, l tablet 19:25: Daily, # [place] 00 30 tab, 0 Refill(s) rosuvastati 2020-0 [...] tab, PO, l Tablet 19:25: TID, 0 [place] 00 Refill(s) losartan 50 2019-0 Yes 50 mg = 1 M emoria mg oral 3-25 tab, PO, l tablet 19:25: Daily, # Anton 00 30 tab, 0 Refill(s) rosuvastati 2020-0 Yes 40 mg = 1 M emoria n 40 mg 3-25 cap, PO, l oral 19:25: Daily, 0 [place] capsule 00 Refill(s) doxepin 10 2020-0 Yes [...] tab, PO, l tablet 19:25: Daily, # [place] 00 30 tab, 0 Refill(s) rosuvastati 2020-0 [...] tab, PO, l tablet 19:25: Daily, 0 [place] 00 Refill(s) Lorazepam 1 2020-0 Yes 1 mg = 1 Me moria MG Oral 3-25 tab, PO, l Tablet 19:25: TID, 0 [place] 00 Refill(s) losartan 50 2020-0 Yes 50 [...] tab, PO, l tablet 19:25: Daily, 0 [place] 00 Refill(s) Lorazepam 1 2020-0 Yes 1 [...] tab, PO, l tablet 19:25: Daily, 0 [place] 00 Refill(s) Lorazepam 1 2020-0 Yes 1 mg = 1 Me moria MG Oral 3-25 tab, PO, l Tablet 19:25: TID, 0 [place] 00 Refill(s) losartan 50 2020-0 Yes 50 mg = 1 M emoria mg oral 3-25 tab, PO, l tablet 19:25: Daily, # [place] 00 30 tab, 0 Refill(s) rosuvastati 2020-0 Yes 40 mg = 1 M emoria n 40 mg 3-25 cap, PO, l oral 19:25: Daily, 0 [place] capsule 00 Refill(s) doxepin 10 2020-0 Yes [...] tab, PO, l Tablet 18:46: Daily, # [place] [Norvasc] 00 30 tab, 1 Refill(s) Hydralazine [...] tab, PO, l Tablet 18:46: Daily, # [place] [[facility]] 00 30 tab, 1 Refill(s) Hydralazine 2020-0 [...] tab, PO, l Tablet 18:46: Daily, 0 [place] 00 Refill(s) levothyroxi 2020-0 Yes 100 Memori a ne 100 mcg 3-25 microgram l (0.1 mg) 18:46: = 1 tab, Lupe nn oral tablet 00 PO, Daily, 0 Refill(s) Amlodipine 2020-0 Yes 10 mg = 1 Me moria 10 MG Oral 3-25 tab, PO, l Tablet 18:46: Daily, # Anton [Norvas] 00 30 tab, 1 Refill(s) Hydralazine 2020-0 [...] tab, PO, l Tablet 18:46: Daily, 0 [place] 00 Refill(s) levothyroxi 2020-0 Yes 100 Memori a ne 100 mcg 3-25 microgram l (0.1 mg) 18:46: = 1 tab, Lupe nn oral tablet 00 PO, Daily, 0 Refill(s) Amlodipine 2020-0 Yes 10 mg = 1 Me moria 10 MG Oral 3-25 tab, PO, l Tablet 18:46: Daily, # Anton [[facility]] 00 30 tab, 1 Refill(s) Hydralazine 2020-0 [...] de 100 MG 18:46: TID, # Werner [facility]ens Oral Tablet 00 tab, 3 Refill(s) [...] 18:04: mouth Medical tablet 59 daily . [place] clopidogrel Yes 75mg QD Take 75 mg [...] Medical tablet 59 Center hydrALAZINE Yes 50mg [id number] Take [address] (APRESOLINE 8-22 [id number] by mouth 3 [facility] - ) 50 MG 18:04: 3D (three) Medical tablet 59 times Center daily. aspirin 81 2017- Yes 81mg QD Take [address] MG EC 8-22 by mouth [facility] - tablet 18:04: daily. Medical 59 Center rosuvastati 2017-0 Yes 10mg QD Take [address] n (CRESTOR) 8-22 by mouth Luke s - 20 MG 18:04: nightly . Medical tablet 59 Center irbesartan 0 Yes 300mg QD Take [address] (AVAPRO) 8-22 mg by [facility] - 300 MG 18:04: mouth Medical tablet 59 daily . Center clopidogrel Yes 75mg QD Take [address] (PLAVIX) 75 8-22 by mouth Luke s - mg tablet 18:04: daily. Medica l 59 Center levothyroxi 0 Yes 100ug Take [address] ne 8-22 mcg by [facility] - (SYNTHROID, 18:04: mouth Medic al LEVOTHROID) 59 Every Center 100 MCG morning on tablet an empty stomach. venlafaxine Yes 150mg QD Take [address] (EFFEXOR-XR 8-22 mg by [facility] - ) 150 MG 24 18:04: mouth Medic al hr capsule 59 nightly . Cent er metoprolol 2017-0 Yes 50mg Q.5D Take [address] (LOPRESSOR) 8-22 by mouth 2 Mary kes - 50 MG 18:04: (two) Medical tablet 59 times Center daily. amLODIPine 20180 Yes 10mg QD Take [address] (NORVASC) 8-22 by mouth [facility] - 10 MG 18:04: nightly . Medical tablet 59 Center hydrALAZINE 0 Yes 50mg Q.50274226 Take [address] (APRESOLINE 8-22 [id number] by mouth 3 [facility] - ) 50 MG 18:04: 3D (three) Medical tablet 59 times Center daily. aspirin 81 2017-0 Yes 81mg QD Take 81 mg C [...] Systolic (mm Hg) 2021-03-04 18:01:00 Rebel rial [place] Diastolic (mm Hg) 2021-03-04 18:01:00 Mem orial Anton Heart Rate 2021-03-04 18:01:00 [facility] Anton Respitory Rate 2021-03-04 18:01:00 Memori al [place] Systolic (mm Hg) 2019-08-15 18:43:00 Rebel rial [place] Diastolic (mm Hg) 2019-08-15 18:43:00 Mem orial [place] Heart Rate 2019-08-15 18:43:00 [facility] Anton Respitory Rate 2019-08-15 18:43:00 Memori al Anton Height 2019-08-15 18:43:00 147.32 cm [facility] Anton Weight 2019-08-15 18:43:00 [facility] Anton BMI Calculated 2019-08-15 18:43:00 Memori al Anton Procedures Procedure Date / Time Performed Performing Clinician Sour e [id number] 2021-03-12 00:00:00 [facility] [id number] 2021-03-12 00:00:00 [facility] [id number] 2021-03-12 00:00:00 [facility] [id number] 2020-08-22 00:00:00 [facility] [id number] 2020-08-22 00:00:00 [facility] [id number] 2020-08-22 00:00:00 [facility] [id number] 2020-08-22 00:00:00 [facility] Carpal tunnel release [facility] Plan of Care Planned Activity Planned Date Details Comments Source Future Scheduled Test SHINGLES VACCINES (#1) [facility] [code = SHINGLES VACCINES (#1)] Future Scheduled Test 65+ PNEUMOCOCCAL [facility] VACCINE (1 of 1 - PPSV23) [code = 65+ PNEUMOCOCCAL VACCINE (1 of 1 - PPSV23)] Future Scheduled Test INFLUENZA VACCINE [code [facility] = INFLUENZA VACCINE] Future Scheduled Test COVID-19 VACCINE (1) [facility] [code = COVID-19 VACCINE (1)] Future Scheduled Test Hepatitis C screening [facility] (procedure) [code = [id number]] Future Scheduled Test BREAST CANCER SCREENING [facility] [code = BREAST CANCER SCREENING] Future Scheduled Test COLONOSCOPY SCREENING [facility] [code = COLONOSCOPY SCREENING] Encounters Start End Encounter Admission Attending Care Care Encounter Source Date/Time Date/Time Type Type Clinicians Facility Department ID 2021-03-26 Inpatient Nicol, HCAWU HCAWU [id number] [facility] 09:00:[id number] [facility] 2021-03-06 Inpatient LYNNE EvansWU TELE [id number] [facility] 15:25:[address] [facility] 2020-08-22 Inpatient LYNNE PikeWU HCAWU [id number] [facility] 12:45:[id number] [facility] 2021-03-11 2021-04-03 Inpatient UR Nicol, HCAWU REHA [id number] [facility] 22:00:00 13:14:[address] [facility] 2021-03-11 2021-04-03 Inpatient UR Nicol, HCAWU REHA [id number] [facility] 22:00:00 13:14:[id number] [facility] 2021-03-20 2021-03-20 Outpatient STLMLC STLC [id number] [facility] 2021-03-06 2021-03-11 Inpatient LYNNE EvansWU TELE [id number] [facility] 12:13:00 21:50:[address] [facility] 2021-03-06 2021-03-11 Inpatient EL Dorothy, LYNNEWU TELE [id number] [facility] 12:13:00 21:50:[id number] [facility] 2021-03-04 2021-03-05 Outpatient nullFlavo MNA [id number] Memoria 18:00:00 04:59:59 r Neurology 02 l [place] 2021-03-04 2021-03-04 Outpatient STLMLC ST[facility] [id number] [facility] 2021-03-03 2021-03-03 Outpatient STLMLC STLMLC [id number] [facility] 2021-02-24 2021-02-24 Outpatient STLMLC STLMLC [id number] [facility] 2021-02-12 2021-02-12 Outpatient STLMLC ST[facility] [id number] [facility] 2021-01-15 2021-01-15 Outpatient STLMLC [facility] [id number] [facility] 2021-01-15 2021-01-15 Outpatient STLMLC STLMLC [id number] [facility] 2020-12-01 2020-12-01 Outpatient STLMLC STLC [id number] [facility] 2020-11-07 2020-11-07 Outpatient STLMLC STLC [id number] [facility] 2020-09-18 2020-09-18 Outpatient ERICKSON_R [facility] [id number] [place] 05:40:00 05:40:00 [facility] 2020-09-18 2020-09-18 Outpatient Abdulkadir [facility] [id number] 00:00:00 00:00:00 Harry [id number] Kulwinder [id number] 2020-08-09 2020-08-09 Outpatient Gerardo, LYNNEWU SURG [id number] [facility] 09:30:00 09:30:00 [facility] [id number] [facility] 2020-08-05 2020-08-05 Outpatient ERICKSON_R [facility] [id number] [place] 10:12:00 10:12:00 316 [facility] 2020-08-04 2020-08-04 Outpatient ERICKSON_R [facility] [id number] [place] 04:58:00 04:58:00 315 [facility] 2020-08-04 2020-08-04 Outpatient Abdulkadir [facility] [id number] 00:00:00 00:00:00 Harry [id number] Kulwinder [id number] 2020-07-25 2020-07-25 Outpatient ERICKSON_R [facility] [id number] [place] 04:09:00 04:09:00 305 [facility] 2020-07-25 2020-07-25 Outpatient Abdulkadir, [facility] [id number] 00:00:00 00:00:00 Harry [id number] Kulwinder [id number] 2020-07-08 2020-07-08 Outpatient ERICKSON_R [facility] [id number] [place] 12:08:00 12:08:00 216 [facility] 2020-06-30 2020-06-30 Outpatient ERICKSON_R [facility] [id number] [place] 05:33:00 05:33:00 208 [facility] 2020-06-26 2020-06-26 Outpatient ERICKSON_R [facility] [id number] [place] 12:25:00 12:25:00 204 [facility] 2020-06-23 2020-06-23 Outpatient ERICKSON_R [facility] [id number] [place] 04:11:00 04:11:00 201 [facility] 2020-06-23 2020-06-23 Outpatient Panchal, [facility] [id number] 00:00:00 00:00:00 Harry [id number] Kulwinder [id number] 2020-05-22 2020-05-22 Outpatient ERICKSON_R [facility] 84 [place] 12:57:00 12:57:00 231 [facility] 2020-05-20 2020-05-20 Outpatient ERICKSON_R [facility] [id number] [place] 03:17:00 03:17:00 229 [facility] 2020-04-04 2020-04-04 Laboratory Lab, [facility] [id number] 17:37:06 17:57:06 Only Fam Pob I Health [id number] [place] 4.2.7.2.686 Professio [id number] nal [address] 2020-04-04 2020-04-04 Outpatient R [facility] [id number] Univers 17:40:00 17:40:00 [id number] [facility] 2020-04-04 2020-04-04 Outpatient R GARTH [facility] [id number] Univers 17:40:00 17:40:00 KRAIG [facility] 2019-09-27 2019-09-27 Ambulatory nullFlavo MNA [id number] Memoria 14:45:00 14:45:00 Pre-Reg r Neurology 01 l Oli [place] 2019-08-23 2019-08-23 [facility] [id number] 14:06:00 14:06:00 t [facility] Family Medicine l Medicine Outpati ent Clinics 2019-08-21 2019-08-21 Orders Doctor KRAIG [id number] 00:00:00 00:00:00 Only Unassigned, MARIEL [id number] [facility] 4.2.7.2.686 [id number] 2019-08-15 2019-08-16 Outpatient nullFlavo MNA [id number] Memoria 19:00:00 04:59:59 r Neurology 00 l [place] 2019-07-23 2019-07-23 [facility] [id number] 15:30:00 15:30:00 t Specialty/U [facility] - Specialty rology Memori a /Urology Clinic l Clinic Outpati ent Clinics 2019-07-17 2019-07-17 Outpatient Brazazael Murot [id number] 10:30:00 10:30:00 t Specialty/U Mary curry - Specialty rology [facility] a /Urology Clinic l Clinic Outpati ent Clinics 2019-06-18 2019-06-18 Hoa Vergara NDWILLIAM [id number] 00:00:00 00:00:00 Chandu [facility] [id number] Surgical 4.2.7.2.686 Specialti [id number] es 198 [place] 2019-06-05 2019-06-05 Hoa Vergara [facility] [id number] 00:00:00 00:00:00 Chandu [facility] 350.1.13.10 Surgical 4.2.7.2.686 Specialti [id number] es 198 [place] Results Test Description Test Time Test Comments [...] (antigen) in th e sample." BASIC METABOLIC [id number] 05:53:00 Test Item Value Reference Range Interpretation [...] 9.9 MG/DL 8.4-10.2 N CA) CBC W/AUTO [id number] 05:45:00 Test Item Value Reference Range Interpretation [...] = 0.00 K/mm3 0.0-0.1 N NRBC#) PLATELET [id number] 05:55:00 Test Item Value Reference Range Interpretation Comments PLATELET COUNT (test code = PLT) 561 K/MM3 129-368 H [id number] 05:45:00 Test Item Value Reference Range Interpretation Comments HEMOGLOBIN (test code = HGB) 9.9 G/DL 11.2-14.9 L - XR HIP W/PEL UNI 2+V [id number] 16:19:00 [facility] : 1950 Sex: F Patient Name: RORY MATHEWS Unit No: [id number] EXAMS: CPT CODE: [id number] XR HIP W/PEL UNI 2+[place] [address] X-ray left hip. INDICATION: Pain FINDINGS: No [...] Technologist: Sydney Castillo RT Transcrpt Date/Tm/Trnsp: 03/27/2021 (7169) [id number] Orig Print D/T: S: 03/27/2021 (4177) [facility] NAME:RORY MATHEWS [id number] [address] PHYS: [place] [address] : 1950 AGE: 70 SEX: F LOC: Z.313 A PHONE #: [phone] EXAM DATE: 03/27/2021 STATUS: ADM IN FAX #: [phone] RADIOLOGY NO: PAGE 1 Signed ReportBUN [id number] 16:37:00 Test Item Value Reference Range Interpretation Comments BLOOD UREA NITROGEN 21 MG/DL 7-17 H (test code = BUN) GLOMERULAR FILTRATION > 60 Report ing units: RATE (test code = GFR) ml/mi n/1.73 m2 (Modified MDRD Formula)Referen ce Range: > or = 6 0 ml/min/1.73 m2 CREATININE (test code 0.50 MG/DL 0.52-1.04 L = CREAT) PLATELET [id number] 10:05:00 Test Item Value Reference Range Interpretation Comments PLATELET COUNT (test code = PLT) 661 K/MM3 129-368 H [id number] 05:40:00 Test Item Value Reference Range Interpretation Comments HEMOGLOBIN (test code = HGB) 10.4 G/DL 11.2-14.9 L - XR HIP W/PEL UNI 2+V [id number] 14:38:00 [facility] : 1950 Sex: F Patient Name: RORY MATHEWS Unit No: [id number] EXAMS: CPT CODE: [id number] XR HIP W/PEL UNI 2+[place] [address] X-ray right hip. INDICATION: Pain FINDINGS: No [...] [id number] Orig Print D/T: S: 03/22/2021 (1441) [facility] NAME: RORY MATHEWS [id number] [address] PHYS: [id number] - [place] [address] : 1950 AGE: 70 SEX: F LOC: Z.313 A PHONE #: [phone] EXAM DATE: 03/22/2021 STATUS: ADM IN FAX #: [phone] RADIOLOGY NO: PAGE 1 Signed ReportGLUCOSE BEDSIDE TESTING 2021-03-21 11:50:00 Test Item Value Reference Range Interpretation Comments GLUCOSE BEDSIDE TESTING (test code 104 MG/DL 60-99 H = GLUBED) BASIC METABOLIC [id number] 16:41:00 Test Item Value Reference Range Interpretation [...] AT 1426 BY Mary Gonzales AnCBC W/AUTO [id number] 16:23:00 Test Item Value Reference Range Interpretation [...] AT 1427 BY Mary Gonzales Asymptomatic IH [id number] 18:04:00 Test Item Value Reference Range Interpretation [...] virus (antigen) in the sample." BASIC METABOLIC [id number] 10:27:00 Test Item Value Reference Range Interpretation [...] 8.4-10.2 N CA) - CT HEAD/BRAIN W/O [id number] 10:07:00 [facility] : 1950 Sex: F Patient Name: RORY MATHEWS Unit No: [id number] EXAMS: CPT CODE: [id number] CT HEAD/BRAIN W/O CONT 94129 EXAM: CT BRAIN WITHOUT CONTRAST INDICATION: CVA [...] LYNNE Keon NAME: RORY MATHEWS [place]YS: [place] [address] : 1950 AGE: 70 SEX: F LOC: Z.534 A PHONE #: [phone] EXAM DATE: 03/09/2021 STATUS: ADM IN FAX #: [phone] RAD #: D/C DT PAGE 1 Signed Report Patient Name: RORY MATHEWS Unit No: [id number] EXAMS: CPT CODE: [id number] CT HEAD/BRAIN W/O CONT 33147 <Continued> Orig Print D/T: S: 03/09/2021 (1010) FLAKITA Herbert NAME: RORY MATHEWS PHYS: [place] [address] : 1950 AGE: 70 SEX: F LOC: Z.534 A PHONE #: [phone] EXAM DATE: 03/09/2021 STATUS: ADM IN FAX #: [phone] RAD #: D/C DT PAGE 2 Signed ReportCBC W/AUTO [id number] 10:01:00 Test Item Value Reference Range Interpretation [...] = 0.00 K/mm3 0.0-0.1 N NRBC#) URINALYSIS [id number] 14:12:00 Test Item Value Reference Range Interpretation [...] = UACULT) SOURCE OF URINE: STRAIGHT CATHETERUA [id number] 14:12:00 Test Item Value Reference Range Interpretation Comments UA RBC (test code = RBCU) 3-5 RBC/HPF 0-3 A UA WBC (test code = XWBCU) 3-5 WBC/HPF 0-5 UA EPITHELIAL CELLS (test code = RARE EPI/HPF FEW EPIU) UA BACTERIA (test code = XBACU) FEW NONE UA MUCUS (test code = MUCU) SLIGHT #/LPF NONE SOURCE OF URINE: STRAIGHT CATHETER- XR CHEST [id number] 10:45:00 [facility] : 1950 Sex: F Patient Name: OTTO MATHEWSMERNA Unit No: [id number] EXAMS: CPT CODE: [id number] XR CHEST 1V 27344 HISTORY: Suspected pneumonia Comparison to March 04, [...] (1045) [id number] Orig Print D/T: S: 03/08/2021 (3704) [facility] NAME: RORY MATHEWS [id number] PHYS: [place] [address] : 1950 AGE: 70 SEX: F LOC: Z.534 A PHONE #: [phone] EXAM DATE: 03/08/2021 STATUS: ADM IN FAX #: [phone] RADIOLOGY NO: PAGE 1 Signed ReportBASIC METABOLIC [id number] 06:31:00 Test Item Value Reference Range Interpretation [...] 9.5 MG/DL 8.4-10.2 N CA) CBC W/AUTO [id number] 06:09:00 Test Item Value Reference Range Interpretation [...] = 0.00 K/mm3 0.0-0.1 N NRBC#) VITAMIN [id number] 21:45:00 Test Item Value Reference Range Interpretation Comments VITAMIN B12 (test code = VITB12) 770 pg/mL 239-931 N FOLIC ACID BY [id number] 21:45:00 Test Item Value Reference Range Interpretation Comments FOLIC ACID BY WILFRIDO > 20.0 ng/mL REFERENCE VALUES: (test code = FOLR) NORMAL: 2.76 - >20 ng/ML DEFICIENT : 1.04 - 2.79 ng/ML THYROID STIMULATING [id number] 21:45:00 Test Item Value Reference Range Interpretation Comments THYROID STIMULATING 1.890 MIU/L 0.465-4.68 N Please b e aware that HORMONE (test code = bias re sults for TSH TSH) may occur forpa tient who are taking Biotin suppleme nts. [id number] 20:59:00 Test Item Value Reference Range Interpretation Comments AMMONIA (test code = AMM) 14 mcMOL/L 9-30 N [id number] 20:47:00 Test Item Value Reference Range Interpretation Comments AMMONIA (test code = AMM) mcMOL/L 9-30 T4 [id number] 20:47:00 Test Item Value Reference Range Interpretation Comments T4 FREE (test code = T4F) 1.7 NG/DL 0.78-2.19 N VITAMIN D [id number] 20:47:00 Test Item Value Reference Range Interpretation Comments VITAMIN D 25-HYDROXY (test code = 28.1 ng/mL 30.0-100.0 L VITD25) GLUCOSE BEDSIDE [id number] 20:13:00 Test Item Value Reference Range Interpretation Comments GLUCOSE BEDSIDE TESTING (test code 211 MG/DL 60-99 H = GLUBED) BASIC METABOLIC [id number] 06:28:00 Test Item Value Reference Range Interpretation [...] VERY HIGH...... ...>/= 190 mg/dL CBC W/AUTO [id number] 05:55:00 Test Item Value Reference Range Interpretation [...] 0.00 K/mm3 0.0-0.1 N NRBC#) BASIC METABOLIC [id number] 17:05:00 Test Item Value Reference Range Interpretation [...] = 9.7 MG/DL 8.4-10.2 CA) CBC W/AUTO [id number] 16:55:00 Test Item Value Reference Range Interpretation [...] code = 0.00 K/mm3 0.0-0.1 N NRBC#) ARTERY,[id number] 17:53:00 Test Item Value Reference Range Interpretation Comments ARTERY,PLAQUE (test code = ART) --------RUN DATE: 08/25/20 [facility] PAGE 1 RUN TIME: 1753 Specimen Inquiry RUN USER: INTERFACE --------PATIENT: MATTHEW MATHEWS LOC: [facility] U #: [id number] AGE/SX: 70/F ROOM: [facility] RE08/22/20REG DR: Nick Pike MD : 46 BED: A DIS: 08/25/20 STATUS: DIS IN TLOC: -------- SPEC #: [id number] RECD: 08/22/20 STATUS: JORDYN DUKES #: [id number] TREY: 08/22/[address]: Nick Pike MD ENTERED: 08/22/20 SP TYPE: ARTERY, PL OTHR DR: Kanwal Carrillo MD, Nioti R MD Pepper, Gregory S MDORDERED: DECAL, SURG PATH LVL 3 CODES: [id number] - ARTERY, NOS [id number] - ARTERY, NOS PLAQUE, NOS [id number] - ARTERY, NOS ATHEROSCLEROSIS COPIES TO: Kanwal Carrillo MD [address] [place] [address] [email or web address] [address] [place] [address] [place] [address] [facility] [address] [place] [address] [place] [address] [facility] [address] [place] [address] ICD CODES: 440 - PROCEDURES: DECAL (08/22/20) SURG PATH LVL 3 (08/22/20) TISSUES: A. ARTERY, NOS - LT CAROTID PLAQUE CPT CODES CPT CODE(S): 68274 , 26966 , , , , , CONTINUED ON NEXT PAGE --------RUN DATE: 08/25/20 [place] - LAB PAGE 2 RUN TIME: 1753 Specimen Inquiry RUN USER: INTERFACE --------SPEC #: [id number] PATIENT: MATTHEW MATHEWS #[id number] (Continued) FINAL DIAGNOSIS Left carotid plaque, endarterectomy: CALCIFIED ATHEROSCLEROTIC PLAQUE GROSS DESCRIPTION Left carotid plaque. Received is a yellow-pinzon, partially V-shaped segment of plaque (4.3 x 1 x 0.8 cm), sectioned to reveal a heavily calcified cut surface. Security Compliance Specialist sections are submitted for decalcification as A1. /tc/doreen MICROSCOPIC DESCRIPTION Left carotid plaque. The microscopic description is incorporated into the final diagnosis. /doreen Signed SIGNATURE ON FILE Juan Ibanez 08/25/20 0797 -------- END OF REPORT CBC W/AUTO [id number] 04:25:00 Test Item Value Reference Range Interpretation [...] K/mm3 0.0-0.1 N NRBC#) - XR CHEST [id number] 09:00:00 [facility] : 1950 Sex: F Patient Name: MATTHEW MATHEWS Unit No: [id number] EXAMS: CPT CODE: [id number] XR CHEST 1V 81447 EXAM: Portable chest one view. Location code:J9 [...] Harry Sykes, RT(R) Transcrpt Date/Tm/Trnsp: 08/23/2020 (0900) MaryRR16 Orig Print D/T: S: 08/23/2020 (0903) [facility] NAME: MATTHEW MATHEWS [address] [address] PHYS: [place] [address] : 1950 AGE: 70 SEX: F LOC: FARZAD Locke PHONE #: [phone] EXAM DATE: 08/23/2020 STATUS: ADM IN FAX #: [phone] RADIOLOGY NO: PAGE 1 Signed ReportCBC W/AUTO [id number] 06:13:00 Test Item Value Reference Range Interpretation [...] = 0.00 K/mm3 0.0-0.1 N NRBC#) DIFFERENTIAL [id number] 06:13:00 Test Item Value Reference Range Interpretation Comments RBC MORPHOLOGY REQUIRED (test code = NORMAL RBCM) PLATELET ESTIMATE (test code = ADEQUATE ADEQUATE PLTEST) PLATELET MORPHOLOGY (test code = NORMAL NORMAL PLTMORPH) GLYCOSYLATED HEMOGLOBIN [id number] 05:34:00 Test Item Value Reference Range Interpretation [...] N (test code = MBG) BASIC METABOLIC [id number] 05:03:00 Test Item Value Reference Range Interpretation [...] code = 8.3 MG/DL 8.4-10.2 L CA) [id number] 05:03:00 Test Item Value Reference Range Interpretation Comments MAGNESIUM (test code = MAG) 1.9 MG/DL 1.6-2.3 N CBC W/AUTO [id number] 04:56:00 Test Item Value Reference Range Interpretation [...] = 0.00 K/mm3 0.0-0.1 N NRBC#) DIFFERENTIAL [id number] 04:56:00 Test Item Value Reference Range Interpretation Comments RBC MORPHOLOGY REQUIRED (test code = RBCM) PLATELET ESTIMATE (test code = PLTEST) ADEQUATE PLATELET MORPHOLOGY (test code = NORMAL PLTMORPH) CBC W/AUTO [id number] 04:56:00 Test Item Value Reference Range Interpretation [...] = 0.00 K/mm3 0.0-0.1 N NRBC#) DIFFERENTIAL [id number] 04:56:00 Test Item Value Reference Range Interpretation Comments RBC MORPHOLOGY REQUIRED (test code = RBCM) PLATELET ESTIMATE (test code = PLTEST) ADEQUATE PLATELET MORPHOLOGY (test code = NORMAL PLTMORPH) ARTERIAL BLOOD [id number] 13:25:00 Test Item Value Reference Range Interpretation [...] mated message] code = TEMPA) The system [employer] generated this result transmit roslyn reference range : 37. The reference r mel was not used to interpret this result as normal/abnormal . ABG SITE (test code = AL SITEA) ALLENS TEST (test NA CHECK code = ALLENS) FIO2 (test code = 28 % COHBGFFIO2) PaO2/[id number] 13:25:00 Test Item Value Reference Range Interpretation Comments PaO2/FiO2 (test code = PML7TSR6) mm/Hg ARTERIAL BLOOD [id number] 13:25:00 Test Item Value Reference Range Interpretation [...] mated message] code = TEMPA) The system [employer] generated this result transmit roslyn reference range : 37. The reference r mel was not used to interpret this result as normal/abnormal . ABG SITE (test code = AL SITEA) ALLENS TEST (test NA CHECK code = ALLENS) FIO2 (test code = 28 % COHBGFFIO2) PaO2/[id number] 13:25:00 Test Item Value Reference Range Interpretation Comments PaO2/FiO2 (test code = SMK9ACS8) 379.28 mm/Hg BASIC METABOLIC [id number] 12:56:00 Test Item Value Reference Range Interpretation [...] code = 8.3 MG/DL 8.4-10.2 L CA) [id number] 12:56:00 Test Item Value Reference Range Interpretation Comments MAGNESIUM (test code = MAG) 2.0 MG/DL 1.6-2.3 N CBC W/AUTO [id number] 12:52:00 Test Item Value Reference Range Interpretation [...] K/mm3 0.0-0.1 N NRBC#) - XR CHEST [id number] 12:22:00 [facility] : 1950 Sex: F Patient Name: MATTHEW MATHEWS Unit No: [id number] EXAMS: CPT CODE: [id number] XR CHEST 1V 45644 Chest Radiograph History: post op surgery Comparison: [...] (1222) TiffanieR.PMT Orig Print D/T: S: 08/22/2020 (5611) [facility] NAME: MATTHEW MATHEWS [address] [address] PHYS: [place] [address] : 1950 AGE: 70 SEX: F LOC: Z.SI05 A PHONE #: [phone] EXAM DATE: 08/22/2020 STATUS: ADM IN FAX #: [phone] RADIOLOGY NO: PAGE 1 Signed ReportCOVID 19 Asymptomatic IH [id number] 15:06:00 Test Item Value Reference Range Interpretation [...] (antigen) in the sample." HIV 12 AB [id number] 14:51:00 Test Item Value Reference Range Interpretation Comments HIV 1 2 COMBO AG/AB SCREEN AB/AG NON REACTIVE NONREACTIVE (test code = [id number]) - XR CHEST 2 [id number] 14:24:00 [facility] : 1950 Sex: F Patient Name: MATTHEW MATHEWS Unit No: [id number] EXAMS: CPT CODE: [id number] XR CHEST 2 V 62505 Location code: B2 HISTORY: Preop, endarterectomy TECHNIQUE: [...] Technologist: Rene Pichardo RT(R) Transcrpt Date/Tm/Trnsp: 08/20/2020 (2014) Ham.RK5 Orig Print D/T: S: 08/20/2020 (6119) [facility] NAME: MATTHEW MATHEWS [address] [address] PHYS: [place] [address] : 1950 AGE: 70 SEX: F LOC: Z.3AHU PHONE #: [phone] EXAM DATE: 08/20/2020 STATUS: PRE IN FAX #: [phone] RADIOLOGY NO: PAGE 1 Signed ReportBASIC METABOLIC [id number] 14:04:00 Test Item Value Reference Range Interpretation [...] = 9.3 MG/DL 8.4-10.2 N CA) PROTHROMBIN [id number] 13:48:00 Test Item Value Reference Range Interpretation [...] syste robby embolism. 3.0 - 4.5 PTT [id number] 13:48:00 Test Item Value Reference Range Interpretation Comments PTT ACTIVATED (test 66.2 SECONDS 25.1-36.5 HH CALLED T Beverly JOSEPH G code = APTT) & READBACK ON 08/20/20 AT 134 7 BY Jay Olguin CBC W/AUTO [id number] 13:17:00 Test Item Value Reference Range Interpretation [...] 0.00 K/mm3 0.0-0.1 N NRBC#) BASIC METABOLIC [id number] 06:51:00 Test Item Value Reference Range Interpretation [...] 0-189 mg/dL VERY HIGH...... ...>/= 190 mg/dL [id number] 06:51:00 Test Item Value Reference Range Interpretation Comments MAGNESIUM (test code = MAG) 2.5 MG/DL 1.6-2.3 H BASIC METABOLIC [id number] 06:40:00 Test Item Value Reference Range Interpretation [...] LDL (test MG/DL 0-99 code = LDL) [id number] 06:40:00 Test Item Value Reference Range Interpretation Comments MAGNESIUM (test code = MAG) 2.5 MG/DL 1.6-2.3 H PROTHROMBIN [id number] 06:35:00 Test Item Value Reference Range Interpretation [...] syste robby embolism. 3.0 - 4.5 PTT [id number] 06:35:00 Test Item Value Reference Range Interpretation Comments PTT ACTIVATED (test code = APTT) 51.6 SECONDS 25.1-36.5 H CBC W/AUTO [id number] 06:23:00 Test Item Value Reference Range Interpretation [...] 0.0-0.1 N NRBC#) COVID 19 Asymptomatic IH [id number] 05:51:00 Test Item Value Reference Range Interpretation [...] of virus (antigen) in the sample." CHEM [id number] 20:09:0027[facility] [id number] 20:09:000.95 [facility]annCHE[facility] [id number] 20:09:0060[facility]annCHEM PANEL 2019-08-15 20:09:0070[facility]ann[facility] [id number] 20:09:0028[facility]annCHE[facility] [id number] 20:09:0027[facility]ann[facility] [id number] 20:09:000.95[facility]ann[facility] [id number] 20:09:0060[facility] [id number] 20:09:0070[facility]ann[facility] [id number] 20:09:0028 [facility] [id number] 20:09:0027[facility]annCHEM PANEL 2019-08-15 20:09:000.95[facility]ann[facility] [id number] 20:09:0060[facility]annCHE[facility] [id number] 20:09:0070[facility]ann[facility] [id number] 20:09:0028[facility]ann[facility] [id number] 20:09:0027[facility]ann[facility] [id number] 20:09:000.95[facility]ann[facility] [id number] 20:09:0060 [facility] [id number] 20:09:0070[facility]annCHEM PANEL 2019-08-15 20:09:0028[facility]ann[facility] [id number] 20:09:0027[facility]ann[facility] [id number] 20:09:000.95[facility] [id number] 20:09:0060[facility]ann[facility] [id number] 20:09:0070[facility]ann[facility] [id number] 20:09:0028[facility]annCHE[facility] [id number] 20:09:0027 [facility] [id number] 20:09:000.95[facility]annCHEM PANEL 2019-08-15 20:09:0060[facility]ann[facility] [id number] 20:09:0070[facility]annCHE[facility] [id number] 20:09:0028[facility]annTISSUE [id number] 13:10:00Surgical Pathology Report Case: [id number] Authorizing Provider: Cornelio Ortiz MD Collected: 01/09/2018 1704 Ordering Location: [facility] Received: 01/10/2018 0831 SERVICES Pathologist: Avery Leal MD Specimen: Large Intestine, Colon - Rectosigmoid, rectosigmoid and donuts A. RECTUM AND SIGMOID COLON, LAPAROSCOPIC LOW ANTERIOR RESECTION: COLON WITH DIVERTICULAR DISEASE.NEGATIVE FOR DYSPLASIA OR INVASIVE CARCINOMA.SURGICAL MARGINS VIABLE. Signing Pathologist Direct Phone Line: [phone] signed by Avery Leal MD on 01/12/2018 at 1:10 [id number] of colon Rectosigmoid colon and donutsReceived fresh [...] Section code: A1-A2, parallel resection margins; A3-A9, insurance follow up representative sections of mucosal outpouchings; A10, insurance follow up representative sections of intestinal rings. DB/plPerformed. BASIC METABOLIC [id number] 06:17:00 Test Item Value Reference Range Interpretation [...] (BEAKER) (test code = 413) BASIC METABOLIC [id number] 05:44:00 Test Item Value Reference Range Interpretation [...] 413) CBC WITH PLATELET COUNT + MANUAL [id number] 16:02:00 Test Item Value Reference Range Interpretation [...] 0-1 PERCENT (BEAKER) (test code = 2801) [id number] 11:33:00 Test Item Value Reference Range Interpretation Comments ALBUMIN (BEAKER) (test code = 1145) 4.2 g/dL 3.5-5.0 [id number] 13:50:00 Test Item Value Reference Range Interpretation Comments SODIUM (BEAKER) (test code = 381) 138 meq/L 136-145 POTASSIUM (BEAKER) (test code = 4.7 meq/L 3.5-5.1 379) CHLORIDE (BEAKER) (test code = 382) 109 meq/L 98-107 H CO2 (BEAKER) (test code = 355) 22 meq/L 22-29 BUN AND [id number] 13:50:00 Test Item Value Reference Range Interpretation Comments BLOOD UREA NITROGEN 20 mg/dL 7-21 (BEAKER) (test code = 354) CREATININE (BEAKER) 0.78 mg/dL 0.57-1.25 (test code = 358) EGFR (BEAKER) (test 73 mL/min/1.73 ESTIMA ROSLYN GFR IS code = 1092) sq m NOT ACCURATE CREATININE CLEARANCE IN PREDICTING GLOMERULAR FILTRATION RATE . ESTIMATED GFR I S NOT APPLICABLE FOR DIALYSIS PATIEN TS. [id number] 13:12:00 Test Item Value Reference Range Interpretation Comments HEMOGLOBIN (BEAKER) (test code = 11.8 GM/DL 11.2-15.7 410)
--- NOTE | 2021-06-12 16:00 | RAD REPORT ---
EXAM DESCRIPTION: RAD - Chest Single View - 06/12/2021 3:26 pm CLINICAL HISTORY: ABDOMINAL DISTENTION COMPARISON: Chest Single View dated 06/07/2021; Chest Single View dated 05/16/2021; Chest Single View dated 03/04/2021; Chest Single View dated 03/03/2021 FINDINGS: Lines: None. Lungs: No evidence of edema or pneumonia. Pleural: No significant pleural effusions or pneumothorax. Cardiac: The heart size is within normal limits. Bones: No acute fractures. Other: IMPRESSION: No acute cardiopulmonary disease.
[2021-06-12 16:02] LABS: Absolute Lymphocytes (CBC) 2.2 K/uL (0.7-4.9); Hematocrit 30.5 % (36.0-45.0); MPV 6.9 fL (7.6-11.3); RBC Red Blood Cell Count 3.97 M/uL (3.86-4.86)
[2021-06-12] MEDS ORDERED: MORPHINE 4 MG/ML SYR ONE (16:12)
[2021-06-12] MEDS ORDERED: ONDANSETRON 4 MG/2 ML VIAL ONE (16:12)
[2021-06-12 16:20] LABS: ALT/SGPT 10 U/L (12-78); AST/SGOT 14 U/L (15-37); Albumin 1.9 g/dL (3.4-5.0); Alkaline Phosphatase 111 U/L (45-117); BUN Blood Urea Nitrogen 20 mg/dL (7-18); Bicarbonate 28 mmol/L (21-32); Bilirubin Direct < 0.1 mg/dL (0-0.2); Bilirubin Total 0.2 mg/dL (0.2-1.0); Glucose Level 109 mg/dL (74-106); Lipase 56 U/L (73-393); Magnesium 2.2 mg/dL (1.8-2.4); Potassium 3.3 mmol/L (3.5-5.1); Sodium Level 139 mmol/L (136-145)
[2021-06-12 16:55] LABS: Urine Blood 1+ (Negative); Urine Glucose Negative (Negative); Urine Protein 2+ (Negative)
[2021-06-12 17:09] LABS: Urine Bacteria <20 /HPF (<20)
[2021-06-12 17:10] LABS: Urine Mucus 1+ /HPF (NONE SEEN)
--- NOTE | 2021-06-12 17:46 | RAD REPORT ---
EXAM DESCRIPTION: CTAbdomen Pelvis W Contrast - 06/12/2021 5:20 pm CLINICAL HISTORY: ABDOMINAL DISTENTION COMPARISON: Abdomen Pelvis W Contrast dated 06/07/2021; Abdomen Pelvis W Contrast dated 05/29/2021; Abdomen Pelvis W Contrast dated 04/17/2020; Abdomen Pelvis W Contrast dated 11/22/2017 TECHNIQUE: CT of the abdomen and pelvis was performed. All CT scans are performed using dose optimization technique as appropriate and may include automated exposure control or mA/KV adjustment according to patient size. FINDINGS: Lower chest: Coronary artery calcifications. Liver: Intrahepatic biliary ductal dilatation which is mild. Biliary: Cholecystectomy. Extrahepatic biliary duct dilatation is likely related to the postcholecyst ectomy state. Stomach: No significant focal abnormality. Duodenum: No significant focal abnormality. Pancreas: No significant abnormality. Spleen: No significant abnormality. Adrenal: No suspicious lesions. Kidney/ureter: Persistent right-sided hydronephrosis. No renal calculi. Retroperitoneum: No retroperitoneal adenopathy. Vascular: Atherosclerosis. Bowel: Similar fecal impaction.. Partial colectomy. Peritoneum: No ascites or free air. Bladder: The bladder is decompressed via Zamarripa catheter. Reproductive: No adnexal masses. Bones: No acute fracture. Other: n/a IMPRESSION: Findings remain consistent with fecal impaction. Right-sided hydronephrosis also again n oted, possibly as result of mass effect on the distal ureter.
[2021-06-12] MEDS ORDERED: CEFTRIAXONE 1000 MG/VIAL ONE (22:05)
[2021-06-12] MEDS ORDERED: POTASSIUM 25 MEQ EFFERV TAB ONE (22:05)
[2021-06-12] MEDS ORDERED: FLEET ENEMA ADULT PR ONE (22:06)
[2021-06-12] MEDS ORDERED: NA CHLORIDE 0.9% 50 ML ONE (22:06)
[2021-06-12] MEDS ORDERED: MORPHINE 2 MG/ML SYR ONE (22:47)
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
--- NOTE | 2021-06-12 23:21 | EDPHYS ---
Physician Documentation [facility] Name: Kali Kumar Age: 71 yrs Sex: Female : 1950 Arrival Date: 06/12/2021 Time: 14:43 Bed 16 Private MD: ED Physician Harish Welsh HPI: 06/12 15:35 This 71 yrs old Unknown Female presents to ER via EMS with complaints of Constipation. cp 15:35 The patient presents with abdominal distention in the lower abdomen, constipation. cp Onset: The symptoms/episode began/occurred today. 15:35 Associated signs and symptoms: Pertinent positives: constipation, Pertinent negatives: cp anorexia, blood in stools, chest pain, dysuria, fever, vomiting. Historical: - PMHx: 15:15 Anxiety; Depression; Hemiplegia and Hemiparesis to Left dominant side; Hyperlipidemia; cb5 Hypertension; Hypothyroidism; Major depressie disorder with psychotic symptoms; MUSCLE WEAKNESS; - Immunization history:: Adult Immunizations up to date, Client reports receiving the 2nd dose of the Covid vaccine. - Social history:: Smoking status: unknown. ROS: 15:40 Constitutional: Negative for fever, poor PO intake. cp 15:40 Eyes: Negative for injury, pain, redness, and discharge. cp 15:40 Respiratory: Negative for cough, shortness of breath, wheezing. 15:40 Abdomen/GI: Positive for constipation, abdominal distension. 15:40 Cardiovascular: Negative for chest pain. cp 15:40 Neuro: Negative for altered mental status. 15:40 All other systems are negative. Exam: 15:45 Constitutional: The patient appears in no acute distress, alert, awake, cp non-diaphoretic, non-toxic, well developed, well nourished. 15:45 Head/Face: Normocephalic, atraumatic. cp 15:45 Eyes: Periorbital structures: appear normal, Conjunctiva: normal, no exudate, no injection, Sclera: no appreciated abnormality, Lids and lashes: appear normal, bilaterally. 15:45 ENT: External ear(s): are unremarkable, Nose: is normal, Mouth: Lips: moist, Oral mucosa: moist, Posterior pharynx: Airway: no evidence of obstruction, patent. 15:45 Chest/axilla: Inspection: normal. 15:45 Cardiovascular: Rate: normal, Rhythm: regular, Edema: is not appreciated, JVD: is not appreciated. 15:45 Respiratory: the patient does not display signs of respiratory distress, Respirations: normal, no use of accessory muscles, no retractions, labored breathing, is not present, Breath sounds: are clear throughout, no decreased breath sounds, no stridor, no wheezing. 15:45 Abdomen/GI: Inspection: distension, that is mild, in the suprapubic area, right lower quadrant and left lower quadrant, Bowel sounds: active, all quadrants, Palpation: soft, in all quadrants, mild abdominal tenderness, in the suprapubic area, right lower quadrant and left lower quadrant, rebound tenderness, is not appreciated, involuntary guarding, is not appreciated. 15:45 Neuro: Orientation: no acute changes, per EMS, Mentation: no acute changes, per EMS. Vital Signs: 14:45 BP 152 / 55; Pulse 70; Resp 16; Temp 98.6; Pulse Ox 98% ; Pain 0/10; cb5 23:40 BP 84 / 38 RA Supine (auto/reg); Pulse 68 MON; Resp 16; Pulse Ox 98% on R/A; tk1 23:55 BP 101 / 62 RA Supine (auto/reg); Pulse 74 RA; Resp 13 S; Pulse Ox 100% on R/A; tk1 06/13 00:00 BP 121 / 49 RA Supine (auto/reg); Pulse 73 RA; Resp 16 S; Pulse Ox 99% on R/A; tk1 00:34 BP 104 / 57 RA Supine (auto/reg); Pulse 69 MON; Resp 18; Temp 98; Pulse Ox 99% ; Pain tk1 5/10; MDM: 06/12 15:05 Patient medically screened. cp 16:00 Differential diagnosis: bowel obstruction, gastritis, non-specific abd pain, cp Pyelonephritis, Ureterolithiasis, urinary tract infection, fecal impaction. 23:20 Data reviewed: vital signs, nurses notes, lab test result(s), radiologic studies, CT cp scan, plain films. 23:20 Response to treatment: the patient's symptoms have markedly improved after treatment. cp ED course: VSS. Patient manually dis impacted and bowel movement observed in ED. Will discharge back to senior care care facility for continued monitoring. 06/12 15:13 Order name: Basic Metabolic Panel; Complete Time: 16:34 cp 01/21 16:35 Interpretation: Normal except: K 3.3; GLUC 109; BUN 20; CRE 0.46. 06/12 15:13 Order name: CBC with Diff; Complete Time: 16:34 06/12 16:35 Interpretation: Normal except: WBC 13.10; HGB 9.6; HCT 30.5; MCV 76.7; MCH 24.2; MCHC cp 31.5; PLT 682; RDW 18.7; MPV 6.9; EOSINOPHIL % 5.4; NEUT A 9.1; EOSA 0.7. 06/12 15:13 Order name: Hepatic Function; Complete Time: 16:34 06/12 16:36 Interpretation: Normal except: AST 14; ALT 10; TP 6.0; ALB 1.9; GLOB 4.1; A/G 0.5. 06/12 15:13 Order name: Lipase; Complete Time: 16:34 06/12 15:13 Order name: Urine Microscopic Only; Complete Time: 17:29 06/12 21:42 Interpretation: Reviewed. 06/12 15:13 Order name: Magnesium; Complete Time: 16:34 06/12 15:13 Order name: XRAY Chest (1 view); Complete Time: 16:34 06/12 16:35 Interpretation: Report reviewed. 06/12 15:13 Order name: CT Abd/Pelvis - IV Contrast Only; Complete Time: 17:53 06/12 16:55 Order name: Urine Dipstick-Ancillary; Complete Time: 16:56 [facility] 06/12 16:56 Interpretation: Normal except: UBLD 1+; UPROT 2+; UESTR 1+. 06/12 17:13 Order name: Urine Culture [facility] 06/12 15:13 Order name: IV Saline Lock; Complete Time: 16:12 06/12 15:13 Order name: Labs collected and sent; Complete Time: 16:12 06/12 15:13 Order name: Bladder Scanner: pre and post void 06/12 15:13 Order name: Urine Dipstick-Ancillary (obtain specimen); Complete Time: 18:45 06/12 15:13 Order name: Zamarripa; Complete Time: 18:45 cp Administered Medications: 16:10 Drug: morphine 4 mg Route: IVP; Site: right hand; cb5 16:10 Drug: Zofran (Ondansetron) 4 mg Route: IVP; Site: right hand; cb5 21:45 Drug: Potassium Effervescent Tablet 50 mEq Route: PO; tk1 22:15 Drug: Fleet Enema (sodium phosphate) 133 ml Route: AK; tk1 22:28 Drug: Rocephin - (cefTRIAXone) 1 grams Route: IVPB; Infused Over: 30 mins; Site: right tk1 hand; 23:00 Drug: morphine 2 mg Route: IVP; Site: right hand; tk1 23:19 CANCELLED (Physician Discretion): Potassium Chloride 20 mEq IV at calculated rate once; cp administer over 1-2 hours 23:19 CANCELLED (Physician Discretion): NS 0.9% 500 ml IV at 250 ml/hr continuous cp 23:19 CANCELLED (Physician Discretion): morphine 4 mg IVP once; RASS on ADMIN: Combtv4, Very cp Agttd3, Agttd2, Rstlss1, AlertClm0, Drwsy-1, Lt Sdtn-2, Mod Sdtn-3, Dp Sdtn-4, UnArsble-5 06/13 00:00 Drug: NS 0.9% 500 ml Route: IV; Rate: bolus; Site: right hand; tk1 Disposition Summary: 06/12/21 23:21 Discharge Ordered Location: Home cp Problem: new cp Symptoms: are resolved cp Condition: Stable cp Diagnosis - Fecal impaction cp - Retention of urine, unspecified cp - UTI/ Urinary tract infection, site not specified cp Followup: cp - With: Private Physician - When: 1 - 2 days - Reason: Recheck today's complaints Discharge Instructions: - Discharge Summary Sheet cp - Acute Urinary Retention, Female cp - Fecal Impaction cp Forms: - Medication Reconciliation Form cp - Thank You Letter cp - Antibiotic Education cp - Prescription Opioid Use cp Prescriptions: - Macrobid 100 mg Oral Capsule - take 1 capsule by ORAL route every 12 hours for 7 days; 14 capsule; Refills: 0, cp Product Selection Permitted Addendum: 06/14/2021 07:09 Co-signature as Attending Physician, Harish Welsh MD I agree with the assessment and c moise plan of care. Signatures: Dispatcher [employer] Harish Ellis MD MD cha Attema, Lee MACHINE DYER-C MACHINE DYER-Cla1 Harish Chaparro, PA PA cp Mikayla Ambrocio tk1 Maria Phelan, RN RN cb5 Corrections: (The following items were deleted from the chart) 06/12 23: 21:44 Potassium Chloride 20 mEq IV at calculated rate once; administer over 1-2 hours cp ordered. cp : 21:44 NS 0.9% 500 ml IV at 250 ml/hr continuous ordered. cp cp : 22:43 morphine 4 mg IVP once; RASS on ADMIN: Combtv4, Very Agttd3, Agttd2, Rstlss1, cp AlertClm0, Drwsy-1, Lt Sdtn-2, Mod Sdtn-3, Dp Sdtn-4, UnArsble-5 ordered. cp : 23:17 morphine 4 mg IVP once; RASS on ADMIN: Combtv4, Very Agttd3, Agttd2, Rstlss1, cp AlertClm0, Drwsy-1, Lt Sdtn-2, Mod Sdtn-3, Dp Sdtn-4, UnArsble-5 given. tk1 : 23:19 morphine 4 mg IVP once; RASS on ADMIN: Combtv4, Very Agttd3, Agttd2, Rstlss1, cp AlertClm0, Drwsy-1, Lt Sdtn-2, Mod Sdtn-3, Dp Sdtn-4, UnArsble-5 ordered. tk1 : 21:44 Misc. Order ordered. cp cp
[2021-06-12] MEDS ORDERED: NA CHLORIDE 0.9% 500 ML ONE (23:52)
[2021-06-13 02:07] VITALS: BP 104/57; TEMP 98; O2SAT 99
== END 2021-06-13 01:58 | disposition home or self-care (01) ==
LOC: ER 14:42
DX: K56.41 Fecal impaction (principal); N39.0 Urinary tract infection, site not specified; R33.9 Retention of urine, unspecified; I10 Essential (primary) hypertension
CPT/HCPCS: 87088; 85025; 87086; 80048; 36415; 83735; 80076; 83690; 74177; 71045; 51702; 96375; 96374; 99285; Q9967; J2270; J7040; J2405; 81003; 81015; 87077; 87186

== ENCOUNTER 2021-08-21 02:42 | Inpatient (IN) | payer OTHER ==
--- OUTSIDE RECORDS SUMMARY | 2021-08-21 02:49 | XMS REPORT | Continuity of Care Document ---
:1950 Author Organization [facility] t Address [address] [place] [address] Care Team Providers Name Role Phone Sara Panchal DO Primary Care Physician Cierra Richardson Attending Clinician Unavailable Monaca Attending Clinician Unavailable Guido De La Cruz Attending Clinician Unavailable Conor Pike Attending Clinician Unavailable ESSIE Attending Clinician Unavailable Kulwinder Panchal Attending Clinician [phone] Jose Carrillo Attending Clinician Unavailable Lab, Fam Pob I Attending Clinician Unavailable GARTH Attending Clinician Unavailable Doctor Unassigned, Name Attending Clinician Unavailable Ursula RODRIGUEZ, L Attending Clinician MERRY ROTIZ Attending Clinician Unavailable Guido De La Cruz Admitting Clinician Unavailable Jose Carrillo Admitting Clinician Unavailable Nicol Admitting Clinician Unavailable ESSIE Admitting Clinician Unavailable MERRY ORTIZ Admitting Clinician Unavailable Payers Payer Name Policy Type Policy Number Effective Date Expiration Date S ourtuan [facility] [id number] [facility] [id number] 2018 MEDICARE GOLD 00:00:00 Problems Condition Condition Condition Status Onset Resolution Last Treating Co mments Source Name Details Category Date Date Treatment Clinician Date Anemia Anemia Disease Active Methodi 02-17 st 00:00: Hospita 00 l Diverticul Diverticul Disease Active C [facility] itis large itis large 820 Mary kes - intestine intestine 00:00: Medi [...] 2021-03-07 M emoria ve 01:35:22 l disorder, [place] systemic Hypertensi arterial ve (disorder) disorder, systemic [...] Nausea And [facility] xacin Allergy Vomiting [facility] Levoflox Drug Active Nausea And [facility] acin Allergy Vomiting 12-26 [facility] CIPROFLO DRUG Active N/V Univers XACIN INGREDI 8-06 ity of 00:00: [place] [address] Medical Branch LEVOFLOX DRUG Active N/V Univers ACIN INGREDI 12-26 ity of 00:00: [place] [address] Medical Branch Codeine Propensi Active Methodi ty to 11-15 st adverse 00:00: Hospita reaction 00 l s to drug codeine DA Active SV [facility] 01-15 00:00: [address] codeine DA Active SV unknown [facility] 01-15 00:00: [address] CODEINE DRUG Active Med NAUSEA ONLY Univ ers INGREDI 10-25 ity of 00:00: [address] Levothyr Adverse Active Info Not [facility] oxine Reaction Available [facility] Ciproflo Adverse Active Info Not [facility] xacin Reaction Available [facility] codeine codeine Active [facility] Family History Family Member Diagnosis Comments Start Date Stop Date Source Natural brother Diabetes [facility] Natural brother Heart disease Method [facility] Social History Social Habit Start Date Stop Date Quantity Comments Source Tobacco use and 2018-03-30 2018-03-30 Never used [facility] 00:[facility]00 Hospital Alcohol intake 2018-03-30 2018-03-30 Current [facility] 00:00:00 00:00:00 non-drinker of Hospital alcohol (finding) Sex Ass[birth year] At [birth year] [facility] 00:00:00 00:00:00 [facility] Smoking Status Start Date Stop Date Source Social History 2021-03-04 18:02:2021-03-04 18:02:09 [facility] Never smoker [facility] Medications Ordered Filled Start Stop [...] 0-13 Refill(s) l de 0.2 MG 18:16: [place] Oral Tablet 00 clopidogrel Yes 75 mg [...] tab, PO, l Tablet 19:25: TID, 0 [place] 00 Refill(s) losartan 50 2019-0 Yes 50 mg = 1 M emoria mg oral 3-25 tab, PO, l tablet 19:25: Daily, # Anton 00 30 tab, 0 Refill(s) rosuvastati 2020-0 Yes 40 mg = 1 M emoria n 40 mg 3-25 cap, PO, l oral 19:25: Daily, 0 [place] capsule 00 Refill(s) doxepin 10 2019-0 Yes 10 mg = 1 Me moria mg oral 3-25 cap, PO, l capsule 19:25: Bedtime, # Herm anirudh 00 30 cap, 0 Refill(s) Lorazepam 1 2019-0 Yes 1 mg = 1 Me moria MG Oral 3-25 tab, PO, l Tablet 19:25: TID, 0 Anton 00 Refill(s) losartan 50 2019-0 Yes 50 mg = 1 M emoria mg oral 3-25 tab, PO, l tablet 19:25: Daily, # [place] 00 30 tab, 0 Refill(s) rosuvastati 2020-0 Yes 40 mg = 1 M emoria n 40 mg 3-25 cap, PO, l oral 19:25: Daily, 0 [place] capsule 00 Refill(s) doxepin 10 2019-0 Yes 10 mg = 1 Me moria mg oral 3-25 cap, PO, l capsule 19:25: Bedtime, # Herm anirudh 00 30 cap, 0 Refill(s) clopidogrel 2020-0 Yes 75 mg = 1 M emoria 75 mg oral 3-25 tab, PO, l tablet 19:25: Daily, 0 [place] 00 Refill(s) Lorazepam 1 2020-0 Yes 1 mg = 1 Me moria MG Oral 3-25 tab, PO, l Tablet 19:25: TID, 0 Anton 00 Refill(s) losartan 50 2020-0 Yes 50 mg = 1 M emoria mg oral 3-25 tab, PO, l tablet 19:25: Daily, # [place] 00 30 tab, 0 Refill(s) rosuvastati 2020-0 [...] tab, PO, l tablet 19:25: Daily, 0 [place] 00 Refill(s) Lorazepam 1 2020-0 Yes 1 [...] cap, PO, l oral 19:25: Daily, 0 [place] capsule 00 Refill(s) doxepin 10 2020-0 Yes [...] tab, PO, l Tablet 19:25: TID, 0 [place] 00 Refill(s) losartan 50 2020-0 Yes 50 mg = 1 M emoria mg oral 3-25 tab, PO, l tablet 19:25: Daily, # [place] 00 30 tab, 0 Refill(s) rosuvastati 2020-0 [...] cap, PO, l oral 19:25: Daily, 0 [place] capsule 00 Refill(s) doxepin 10 2020-0 Yes 10 mg = 1 Me moria mg oral 3-25 cap, PO, l capsule 19:25: Bedtime, # Herm anirudh 00 30 cap, 0 Refill(s) Furosemide 2020-0 Yes 40 mg = 1 Me moria 40 MG Oral 3-25 tab, PO, l Tablet 18:46: Daily, 0 [place] 00 Refill(s) levothyroxi 2020-0 Yes 100 Memori a ne 100 mcg 3-25 microgram l (0.1 mg) 18:46: = 1 tab, Lupe nn oral tablet 00 PO, Daily, 0 Refill(s) Amlodipine 2020-0 Yes 10 mg = 1 Me moria 10 MG Oral 3-25 tab, PO, l Tablet 18:46: Daily, # [place] [Norvasc] 00 30 tab, 1 Refill(s) Hydralazine [...] tab, PO, l Tablet 18:46: Daily, 0 [place] 00 Refill(s) levothyroxi 2020-0 Yes 100 Memori a ne 100 mcg 3-25 microgram l (0.1 mg) 18:46: = 1 tab, Lupe nn oral tablet 00 PO, Daily, 0 Refill(s) Amlodipine 2020-0 Yes 10 mg = 1 Me moria 10 MG Oral 3-25 tab, PO, l Tablet 18:46: Daily, # [place] [Norvasc] 00 30 tab, 1 Refill(s) Hydralazine [...] PO, l Tablet 18:46: Daily, # [place] [facility] 00 30 tab, 1 [...] PO, l Tablet 18:46: Daily, # Anton [[facility]] 00 30 tab, 1 Refill(s) Hydralazine 2020-0 [...] PO, l Tablet 18:46: Daily, # Anton [[facility]] 00 30 tab, 1 Refill(s) Hydralazine 2020-0 [...] 18:04: mouth Medical tablet 59 daily . [place] clopidogrel Yes 75mg QD Take 75 mg [...] Medical tablet 59 Center hydrALAZINE Yes 50mg Q.[id number] Take [address] [facility] (APRESOLINE 8-22 [id number] by mouth 3 [facility] - ) 50 [...] tablet 59 Center hydrALAZINE 0 Yes 50mg Q.[id number] Take [address] (APRESOLINE 8-22 [id number] by mouth 3 [facility] - ) 50 MG 18:04: 3D (three) Medical tablet 59 times Center daily. aspirin 81 Yes 81mg QD Take [address] MG EC 8-22 by mouth [facility] - tablet 18:04: daily. Medical 59 Center Levothyroxi Levothyroxi Yes Leora [address] [facility] ne Sodium ne Sodium [place] in the [facility] - morning on Memoria an empty l stomach Outpati ent Clinics Vital Signs Vital Name Observation Time Observation Value Comments Source Systolic (mm Hg) 2021-03-04 18:01:00 Rebel rial Anton Diastolic (mm Hg) 2021-03-04 18:01:00 Mem orial [place] Heart Rate 2021-03-04 18:01:00 [facility] [place] Respitory Rate 2021-03-04 18:01:00 Memori al [place] Systolic (mm Hg) 2019-08-15 18:43:00 Rebel rial [place] Diastolic (mm Hg) 2019-08-15 18:43:00 Mem orial [place] Heart Rate 2019-08-15 18:43:00 [facility] [place] Respitory Rate 2019-08-15 18:43:00 Memori al [place] Height 2019-08-15 18:43:00 147.32 cm [facility] Anton Weight 2019-08-15 18:43:00 [facility] [place] BMI Calculated 2019-08-15 18:43:00 [facility] Procedures Procedure Date / Time Performed Performing Clinician Sour e [id number] 2021-03-12 00:00:00 [facility] [id number] 2021-03-12 00:00:00 [facility] [id number] 2021-03-12 00:00:00 [facility] [id number] 2020-08-22 00:00:00 [facility] [id number] 2020-08-22 00:00:00 [facility] [id number] 2020-08-22 00:00:00 [facility] [id number] 2020-08-22 00:00:00 [facility] Carpal tunnel release [facility] Plan of Care Planned Activity Planned Date Details Comments Source Future Scheduled Test Hepatitis C screening [facility] (procedure) [code = 157266896] Future Scheduled Test BREAST CANCER SCREENING [facility] [code = BREAST CANCER SCREENING] Future Scheduled Test COLONOSCOPY SCREENING [facility] [code = COLONOSCOPY SCREENING] Future Scheduled Test SHINGLES VACCINES (#1) [facility] [code = SHINGLES VACCINES (#1)] Future Scheduled Test 65+ PNEUMOCOCCAL Me [facility] VACCINE (1 of 1 - PPSV23) [code = 65+ PNEUMOCOCCAL VACCINE (1 of 1 - PPSV23)] Future Scheduled Test INFLUENZA VACCINE [code [facility] = INFLUENZA VACCINE] Future Scheduled Test COVID-19 VACCINE (1) [facility] [code = COVID-19 VACCINE (1)] Encounters Start End Encounter Admission Attending Care Care Encounter Source Date/Time Date/Time Type Type Clinicians Facility Department ID 2021-06-17 Outpatient [place], [place] [id number] [address] 14:39:20 [facility] 2021-06-17 Outpatient [place], [place] [id number] [facility] 14:38:39 [facility] 2021-06-17 Outpatient Richardson, [place] [id number] 14:34:40 [facility] 2021-06-17 Outpatient Richardson, [place] [id number] 13:42:40 David 90830 [facility] 2021-06-17 Outpatient Richardson, [place] [id number] 13:16:54 David [id number] [facility] 2021-06-17 Outpatient Richardson, [place] [id number] 13:16:28 David [id number] [facility] 2021-06-17 Outpatient [place] [id number] 12:57:58 [id number] [facility] 2021-03-26 In[facility] Nicol[id number] 09:00:00 Rene [id number] [facility] 2021-03-06 Inpatient ANDREY De La Cruz, LYNNEWCj [facility] [id number] [facility] 15:25:00 Josefa 78 [facility] 2020-08-22 Inpatient MIGEL Pike [facility] [id number] [facility] 12:45:00 Nick [id number] [facility] 2021-07-16 2021-07-16 ambulatory STLMLC STLMLC [id number] [facility] 2021-03-11 2021-04-03 Inpatient MIGEL Hunter REHA [id number] [facility] 22:00:00 13:14:00 Rene 77 [facility] 2021-03-11 2021-04-03 Inpatient UR MIGEL Camarena REHA [id number] [facility] 22:00:00 13:14:00 Rene [id number] [facility] 2021-03-20 2021-03-20 Outpatient STLMLC STLC [id number] [facility] 2021-03-06 2021-03-11 Inpatient MIGEL Evans TELE [id number] [facility] 12:13:00 21:50:00 Nioti 99 [facility] 2021-03-06 2021-03-11 Inpatient MIGEL Evans TELE [id number] [facility] 12:13:00 [facility]:50:[facility] [id number] 2021-03-04 2021-03-05 Outpatient nullFlavo MNA [id number] Memoria 18:00:00 04:59:59 r Neurology 02 l [facility] Anton 2021-03-04 2021-03-04 Outpatient STLMLC STLMLC [id number] [facility] 2021-03-03 2021-03-03 Outpatient STLMLC STLMLC [id number] [facility] 2021-02-24 2021-02-24 Outpatient STLMLC STLMLC [id number] [facility] 2021-02-12 2021-02-12 Outpatient STLMLC [facility]LMLC [id number] [facility] 2021-01-15 2021-01-15 Outpatient [facility] [id number] [facility] 2021-01-15 2021-01-15 Outpatient STLMLC STLC [id number] [facility] 2020-12-01 2020-12-01 Outpatient [facility]LMLC [facility] [id number] [facility] 2020-11-07 2020-11-07 [facility] [id number] [facility] 2020-09-18 2020-09-18 Outpatient ERICKSON_R [facility] [id number] [place] 05:40:00 05:40:00 [facility] 2020-09-18 2020-09-18 Outpatient Abdulkadir [facility] [id number] 00:00:00 00:00:00 Harry [id number] Kulwinder [id number] 2020-08-09 2020-08-09 Outpatient Dabaghi, HCAWU SURG [id number] [facility] 09:30:00 09:30:00 [facility] [id number] [facility] 2020-08-05 2020-08-05 Outpatient ERICKSON_R [facility] [id number] [place] 10:12:00 10:12:00 316 [facility] 2020-08-04 2020-08-04 Outpatient ERICKSON_R [facility] [id number] [place] 04:58:00 04:58:00 315 [facility] 2020-08-04 2020-08-04 Outpatient Abdulkadir [facility] [id number] 00:00:00 00:00:00 Harry [id number] Kulwinder [id number] 2020-07-25 2020-07-25 Outpatient ERICKSON_R [facility] [id number] [place] 04:09:00 04:09:00 305 [facility] 2020-07-25 2020-07-25 Outpatient Abdulkadir [facility] [id number] 00:00:00 00:00:00 Harry [id number] Kulwinder [id number] 2020-07-08 2020-07-08 Outpatient ERICKSON_R [facility] [id number] [place] 12:08:00 12:08:00 216 [facility] 2020-06-30 2020-06-30 Outpatient ERICKSON_R [facility] [id number] [place] 05:33:00 05:33:00 208 [facility] 2020-06-26 2020-06-26 Outpatient ERICKSON_R [facility] [id number] [place] 12:25:00 12:25:00 204 [facility] 2020-06-23 2020-06-23 Outpatient ERICKSON_R [facility] [id number] [place] 04:11:00 04:11:00 201 [facility] 2020-06-23 2020-06-23 Outpatient Abdulkadir, [facility] [id number] 00:00:00 00:00:00 Harry [id number] Kulwinder [id number] 2020-05-22 2020-05-22 Outpatient ERICKSON_R [facility] [id number] [place] 12:57:00 12:57:00 231 [facility] 2020-05-20 2020-05-20 Outpatient ERICKSON_R [facility] [id number] [place] 03:17:00 03:17:00 229 [facility] 2020-04-04 2020-04-04 Laboratory Lab, [place] [id number] 17:37:06 17:57:06 Only Fam b I Health 350.1.13.10 [place] 4.2.7.2.686 [facility] [id number] nal [facility] Office Building One 2020-04-04 2020-04-[address] [facility] [id number] Univers 17:40:00 17:40:00 [id number] [facility] 2020-04-04 2020-04-04 Outpatient R GARTH, [facility] [id number] Univers 17:40:00 17:40:00 KRAIG [facility] 2019-09-27 2019-09-27 Ambulatory nullFlavo MNA [id number] Memoria 14:45:00 14:45:00 Pre-Reg r Neurology 01 l [facility] [place] 2019-08-23 2019-08-23 [facility] [id number] [address] 14:06:00 14:06:00 t [facility] s [facility] Family Medicine Medicine Outpati ent Clinics 2019-08-21 2019-08-21 Orders Doctor CORNELL [id number] 00:00:00 00:00:00 Only Unassigned, MARIEL 350.1.13.10 [employer] [facility] 4.2.7.2.686 [id number] 2019-08-15 2019-08-16 Outpatient nullFlavo MNA [id number] Memoria 19:00:00 04:59:59 r Neurology 00 l [facility] 2019-07-23 2019-07-23 [facility] [id number] 15:30:00 15:30:00 t Specialty/U Mary kes - Specialty rology Memori a /Urology Clinic l Clinic Outpati ent Clinics 2019-07-17 2019-07-17 [facility] [id number] 10:30:00 10:30:00 t Specialty/U Mary kes - Specialty rology Memori a /Urology Clinic l Clinic Outpati ent Clinics 2019-06-18 2019-06-18 [facility] [id number] 00:00:00 00:00:00 [facility] [id number] Surgical 4.2.7.2.686 Special [id number] 198 [place] 2019-06-05 2019-06-05 [facility] [id number] 00:00:00 00:00:00 [facility] 350.1.13.10 Surgical 4.2.7.2.686 Specialti [id number] es 198 [place] Results Test Description Test Time Test Comments [...] (antigen) in th e sample." BASIC METABOLIC [id number] 05:53:00 Test Item Value Reference Range Interpretation [...] 9.9 MG/DL 8.4-10.2 N CA) CBC W/AUTO [id number] 05:45:00 Test Item Value Reference Range Interpretation [...] = 0.00 K/mm3 0.0-0.1 N NRBC#) PLATELET [id number] 05:55:00 Test Item Value Reference Range Interpretation Comments PLATELET COUNT (test code = PLT) 561 K/MM3 129-368 H [id number] 05:45:00 Test Item Value Reference Range Interpretation Comments HEMOGLOBIN (test code = HGB) 9.9 G/DL 11.2-14.9 L - XR HIP W/PEL UNI 2+V [id number] 16:19:00 [facility] 1950 Sex: F Patient Name: RORY MATHEWS Unit No: [id number] EXAMS: CPT CODE: [id number] XR HIP W/PEL UNI 2+[place] [address] X-ray left hip. INDICATION: Pain FINDINGS: No [...] Technologist: Sydney Castillo RT Transcrpt Date/Tm/Trnsp: 03/27/2021 (1619) [email or web address] Orig Print D/T: S: 03/27/2021 (8423) [facility] NAME:RORY MATHEWS [id number] [address] PHYS: Jose[place] [address] : 1950 AGE: 70 SEX: F LOC: Z.313 A PHONE #: [phone] EXAM DATE: 03/27/2021 STATUS: ADM IN FAX #: [phone] RADIOLOGY NO: PAGE 1 Signed ReportBUN [id number] 16:37:00 Test Item Value Reference Range Interpretation Comments BLOOD UREA NITROGEN 21 MG/DL 7-17 H (test code = BUN) GLOMERULAR FILTRATION > 60 Report ing units: RATE (test code = GFR) ml/mi n/1.73 m2 (Modified MDRD Formula)Referen ce Range: > or = 6 0 ml/min/1.73 m2 CREATININE (test code 0.50 MG/DL 0.52-1.04 L = CREAT) PLATELET [id number] 10:05:00 Test Item Value Reference Range Interpretation Comments PLATELET COUNT (test code = PLT) 661 K/MM3 129-368 H [id number] 05:40:00 Test Item Value Reference Range Interpretation Comments HEMOGLOBIN (test code = HGB) 10.4 G/DL 11.2-14.9 L - XR HIP W/PEL UNI 2+V [id number] 14:38:00 [facility] : 1950 Sex: F Patient Name: RORY MATHEWS Unit No: [id number] EXAMS: CPT CODE: [id number] XR HIP W/PEL UNI 2+[place] [address] X-ray right hip. INDICATION: Pain FINDINGS: No [...] Sydney Castillo RT Transcrpt Date/Tm/Trnsp: 03/22/2021 (1438) [id number] Orig Print D/T: S: 03/22/2021 (1441) [facility] NAME: RORY MATHEWS [id number] [address] PHYS: Namrata [place] [address] : 1950 AGE: 70 SEX: F LOC: Z.313 A PHONE #: [phone] EXAM DATE: 03/22/2021 STATUS: ADM IN FAX #: [phone] RADIOLOGY NO: PAGE 1 Signed ReportGLUCOSE BEDSIDE TESTING 2021-03-21 11:50:00 Test Item Value Reference Range Interpretation Comments GLUCOSE BEDSIDE TESTING (test code 104 MG/DL 60-99 H = GLUBED) BASIC METABOLIC [id number] 16:41:00 Test Item Value Reference Range Interpretation [...] JULIANO 03/12/21 AT 1426 BY Mary Gonzales [facility] W/AUTO [id number] 16:23:00 Test Item Value Reference Range Interpretation [...] JULIANO 03/12/21 AT 1427 BY Mary Gonzales 19 Asymptomatic IH [id number] 18:04:00 Test Item Value Reference Range Interpretation [...] virus (antigen) in the sample." BASIC METABOLIC [id number] 10:27:00 Test Item Value Reference Range Interpretation [...] 8.4-10.2 N CA) - CT HEAD/BRAIN W/O [id number] 10:07:00 [facility] : 1950 Sex: F Patient Name: RORY MATHEWS Unit No: [id number] EXAMS: CPT CODE: [id number] CT HEAD/BRAIN W/O CONT 15599 EXAM: CT BRAIN WITHOUT CONTRAST INDICATION: CVA [...] Kanwal Carrillo MD; Josefa De La Cruz; Keavn Ball MD Technologist: CarlosE duardo Fine, RT(R); Amand CTDI: DLP: Trnscrpt: 03/09/2021 (1007) [email or web address] [facility] NAME: RORY MATHEWS [id number] [address] PHYS: LELE Sanchez,[place] [address] : 1950 AGE: 70 SEX: F LOC: Z.534 A PHONE #: [phone] EXAM DATE: 03/09/2021 STATUS: ADM IN FAX #: [phone] RAD #: D/C DT PAGE 1 Signed Report Patient Name: RORY MATHEWS Unit No: [id number] EXAMS: CPT CODE: [id number] CT HEAD/BRAIN W/O CONT 70471 <Continued> Orig Print D/T: S: 03/09/2021 (1010) [facility] [place] NAME: RORY MATHEWS [id number] [address] PHYS: LELE Sanchez,[place] [address] : 1950 AGE: 70 SEX: F LOC: Z.534 A PHONE #: [phone] EXAM DATE: 03/09/2021 STATUS: ADM IN FAX #: [phone] RAD #: D/C DT PAGE 2 Signed ReportCBC W/AUTO [id number] 10:01:00 Test Item Value Reference Range Interpretation [...] = 0.00 K/mm3 0.0-0.1 N NRBC#) URINALYSIS [id number] 14:12:00 Test Item Value Reference Range Interpretation [...] = UACULT) SOURCE OF URINE: STRAIGHT CATHETERUA [id number] 14:12:00 Test Item Value Reference Range Interpretation Comments UA RBC (test code = RBCU) 3-5 RBC/HPF 0-3 A UA WBC (test code = XWBCU) 3-5 WBC/HPF 0-5 UA EPITHELIAL CELLS (test code = RARE EPI/HPF FEW EPIU) UA BACTERIA (test code = XBACU) FEW NONE UA MUCUS (test code = MUCU) SLIGHT #/LPF NONE SOURCE OF URINE: STRAIGHT CATHETER- XR CHEST [id number] 10:45:00 [facility] : 1950 Sex: F Patient Name: RORY MATHEWS Unit No: [id number] EXAMS: CPT CODE: [id number] XR CHEST 1V 87671 HISTORY: Suspected pneumonia Comparison to March 04, [...] Technologist: Sydney Castillo RT Transcrpt Date/Tm/Trnsp: 03/08/2021 (1047) [email or web address] Orig Print D/T: S: 03/08/2021 (1045) FLA[facility] [place] NAME: RORY MATHEWS [id number] [address] PHYS: [id number] - Jaret,[place] [address] : 1950 AGE: 70 SEX: F LOC: Z.534 A PHONE #: [phone] EXAM DATE: 03/08/2021 STATUS: ADM IN FAX #: [phone] RADIOLOGY NO: PAGE 1 Signed ReportBASIC METABOLIC [id number] 06:31:00 Test Item Value Reference Range Interpretation [...] 9.5 MG/DL 8.4-10.2 N CA) CBC W/AUTO [id number] 06:09:00 Test Item Value Reference Range Interpretation [...] = 0.00 K/mm3 0.0-0.1 N NRBC#) VITAMIN [id number] 21:45:00 Test Item Value Reference Range Interpretation Comments VITAMIN B12 (test code = VITB12) 770 pg/mL 239-931 N FOLIC ACID BY [id number] 21:45:00 Test Item Value Reference Range Interpretation Comments FOLIC ACID BY WILFRIDO > 20.0 ng/mL REFERENCE VALUES: (test code = FOLR) NORMAL: 2.76 - >20 ng/ML DEFICIENT : 1.04 - 2.79 ng/ML THYROID STIMULATING [id number] 21:45:00 Test Item Value Reference Range Interpretation Comments THYROID STIMULATING 1.890 MIU/L 0.465-4.68 N Please b e aware that HORMONE (test code = bias re sults for TSH TSH) may occur forpa tient who are taking Biotin suppleme nts. [id number] 20:59:00 Test Item Value Reference Range Interpretation Comments AMMONIA (test code = AMM) 14 mcMOL/L 9-30 N [id number] 20:47:00 Test Item Value Reference Range Interpretation Comments AMMONIA (test code = AMM) mcMOL/L 9-30 T4 [id number] 20:47:00 Test Item Value Reference Range Interpretation Comments T4 FREE (test code = T4F) 1.7 NG/DL 0.78-2.19 N VITAMIN D [id number] 20:47:00 Test Item Value Reference Range Interpretation Comments VITAMIN D 25-HYDROXY (test code = 28.1 ng/mL 30.0-100.0 L VITD25) GLUCOSE BEDSIDE [id number] 20:13:00 Test Item Value Reference Range Interpretation Comments GLUCOSE BEDSIDE TESTING (test code 211 MG/DL 60-99 H = GLUBED) BASIC METABOLIC [id number] 06:28:00 Test Item Value Reference Range Interpretation [...] VERY HIGH...... ...>/= 190 mg/dL CBC W/AUTO [id number] 05:55:00 Test Item Value Reference Range Interpretation [...] 0.00 K/mm3 0.0-0.1 N NRBC#) BASIC METABOLIC [id number] 17:05:00 Test Item Value Reference Range Interpretation [...] = 9.7 MG/DL 8.4-10.2 CA) CBC W/AUTO [id number] 16:55:00 Test Item Value Reference Range Interpretation [...] (test code = 0.00 K/mm3 0.0-0.1 N [facility]#) ARTERY,[id number] 17:53:00 Test Item Value Reference Range Interpretation Comments ARTERY,PLAQUE (test code = ART) --------RUN DATE: 08/25/20 [place] - LAB PAGE 1 RUN TIME: 1753 Specimen Inquiry RUN USER: INTERFACE --------PATIENT: MATTHEW MATHEWS LOC: JACKIE U #: [id number] AGE/SX: 70/F ROOM: [facility] RE08/22/20[facility] DR: Nick Pike MD : 46 BED: A DIS: 08/25/20 STATUS: DIS IN TLOC: -------- SPEC #: [id number] RECD: 08/22/20 STATUS: JORDYN REQ #: [id number] TREY: 08/22/[address]: Nick Pike MD ENTERED: 08/22/20 SP TYPE: ARTERY, PL OTHR DR: Kanwal Carrillo MD, Nioti R MD Pepper, Gregory S MDORDERED: DECAL, SURG PATH LVL 3 CODES: [id number] - ARTERY, NOS [id number] - ARTERY, NOS PLAQUE, NOS [id number] - ARTERY, NOS ATHEROSCLEROSIS COPIES TO: Kanwal Carrillo MD [address] [place] [address] [email or web address] [place] [address] [place] [address] [place] [address] [facility] [place] [address] [place] [address] [facility] [address] [address] ICD CODES: 440 - PROCEDURES: DECAL (08/22/20) SURG PATH LVL 3 (08/22/20) TISSUES: A. ARTERY, NOS - LT CAROTID PLAQUE CPT CODES CPT CODE(S): 63585 , 87713 , , , , , CONTINUED ON NEXT PAGE --------RUN DATE: 08/25/20 [facility] LAB PAGE 2 RUN TIME: 1753 Specimen Inquiry RUN USER: INTERFACE --------SPEC #: [id number] PATIENT: OTTO MATHEWSPRICEDarian AREVALO #[id number] (Continued) FINAL DIAGNOSIS Left carotid plaque, endarterectomy: CALCIFIED ATHEROSCLEROTIC PLAQUE GROSS DESCRIPTION Left carotid plaque. Received is a yellow-pinzon, partially V-shaped segment of plaque (4.3 x 1 x 0.8 cm), sectioned to reveal a heavily calcified cut surface. Clinical Science Consultant sections are submitted for decalcification as A1. /deirdre/doreen MICROSCOPIC DESCRIPTION Left carotid plaque. The microscopic description is incorporated into the final diagnosis. /doreen Signed SIGNATURE ON FILE Eliecer Ibanezbelem 08/25/20 1753 -------- END OF REPORT CBC W/AUTO [id number] 04:25:00 Test Item Value Reference Range Interpretation [...] K/mm3 0.0-0.1 N NRBC#) - XR CHEST [id number] 09:00:00 [facility] 1950 Sex: F Patient Name: MATTHEW MATHEWS Unit No: [id number] EXAMS: CPT CODE: [id number] XR CHEST 1V 57435 EXAM: Portable chest one view. Location code:J9 [...] TiffanieR.RR16 Orig Print D/T: S: 08/23/2020 (0903) [facility] NAME: MATTHEW MATHEWS [id number] PHYS: [place] [address] : 1950 AGE: 70 SEX: F LOC: Z.SI05 A PHONE #: [phone] EXAM DATE: 08/23/2020 STATUS: ADM IN FAX #: [phone] RADIOLOGY NO: PAGE 1 Signed ReportCBC W/AUTO [id number] 06:13:00 Test Item Value Reference Range Interpretation [...] = 0.00 K/mm3 0.0-0.1 N NRBC#) DIFFERENTIAL [id number] 06:13:00 Test Item Value Reference Range Interpretation Comments RBC MORPHOLOGY REQUIRED (test code = NORMAL RBCM) PLATELET ESTIMATE (test code = ADEQUATE ADEQUATE PLTEST) PLATELET MORPHOLOGY (test code = NORMAL NORMAL PLTMORPH) GLYCOSYLATED HEMOGLOBIN [id number] 05:34:00 Test Item Value Reference Range Interpretation [...] N (test code = MBG) BASIC METABOLIC [id number] 05:03:00 Test Item Value Reference Range Interpretation [...] code = 8.3 MG/DL 8.4-10.2 L CA) [id number] 05:03:00 Test Item Value Reference Range Interpretation Comments MAGNESIUM (test code = MAG) 1.9 MG/DL 1.6-2.3 N CBC W/AUTO [id number] 04:56:00 Test Item Value Reference Range Interpretation [...] = 0.00 K/mm3 0.0-0.1 N NRBC#) DIFFERENTIAL [id number] 04:56:00 Test Item Value Reference Range Interpretation Comments RBC MORPHOLOGY REQUIRED (test code = RBCM) PLATELET ESTIMATE (test code = PLTEST) ADEQUATE PLATELET MORPHOLOGY (test code = NORMAL PLTMORPH) CBC W/AUTO [id number] 04:56:00 Test Item Value Reference Range Interpretation [...] = 0.00 K/mm3 0.0-0.1 N NRBC#) DIFFERENTIAL [id number] 04:56:00 Test Item Value Reference Range Interpretation Comments RBC MORPHOLOGY REQUIRED (test code = RBCM) PLATELET ESTIMATE (test code = PLTEST) ADEQUATE PLATELET MORPHOLOGY (test code = NORMAL PLTMORPH) ARTERIAL BLOOD [id number] 13:25:00 Test Item Value Reference Range Interpretation [...] mated message] code = TEMPA) The system hi5 generated this result transmit roslyn reference range : 37. The reference r mel was not used to interpret this result as normal/abnormal . ABG SITE (test code = AL SITEA) ALLENS TEST (test NA CHECK code = ALLENS) FIO2 (test code = 28 % COHBGFFIO2) PaO2/[id number] 13:25:00 Test Item Value Reference Range Interpretation Comments PaO2/FiO2 (test code = UWS1PKM1) mm/Hg ARTERIAL BLOOD [id number] 13:25:00 Test Item Value Reference Range Interpretation [...] mated message] code = TEMPA) The system hi5 generated this result transmit roslyn reference range : 37. The reference r mel was not used to interpret this result as normal/abnormal . ABG SITE (test code = AL SITEA) ALLENS TEST (test NA CHECK code = ALLENS) FIO2 (test code = 28 % COHBGFFIO2) PaO2/[id number] 13:25:00 Test Item Value Reference Range Interpretation Comments PaO2/FiO2 (test code = ZLC9VJF3) 379.28 mm/Hg BASIC METABOLIC [id number] 12:56:00 Test Item Value Reference Range Interpretation [...] code = 8.3 MG/DL 8.4-10.2 L CA) [id number] 12:56:00 Test Item Value Reference Range Interpretation Comments MAGNESIUM (test code = MAG) 2.0 MG/DL 1.6-2.3 N CBC W/AUTO [id number] 12:52:00 Test Item Value Reference Range Interpretation [...] (test code = 0.00 K/mm3 0.0-0.1 N [facility]#) - XR CHEST [id number] 12:22:00 [facility] : 1950 Sex: F Patient Name: MATTHEW MATHEWS Unit No: [id number] EXAMS: CPT CODE: [id number] XR CHEST 1V 33770 Chest Radiograph History: post op surgery Comparison: August 20, 2020 Location: [facility] A single frontal view of the chest [...] Bass, RT (R) Transcrpt Date/Tm/Trnsp: 08/22/2020 (1222) t.CHRISTIANO.PMT Orig Print D/T: S: 08/22/2020 (1225) [facility] NAME: MATTHEW MATHEWS [id number] PHYS: [place] [address] : 1950 AGE: 70 SEX: F LOC: Z.SI05 A PHONE #: [phone] EXAM DATE: 08/22/2020 STATUS: ADM IN FAX #: [phone] RADIOLOGY NO: PAGE 1 Signed ReportCOVID 19 Asymptomatic IH [id number] 15:06:00 Test Item Value Reference Range Interpretation [...] (antigen) in the sample." HIV 12 AB [id number] 14:51:00 Test Item Value Reference Range Interpretation Comments HIV 1 2 COMBO AG/AB SCREEN AB/AG NON REACTIVE NONREACTIVE (test code = [id number]) - XR CHEST 2 [id number] 14:24:00 [facility] : 1950 Sex: F Patient Name: MATTHEW MATHEWS Unit No: [id number] EXAMS: CPT CODE: [id number] XR CHEST 2 V 15396 Location code: B2 HISTORY: Preop, endarterectomy TECHNIQUE: Frontal and lateral views of the chest were obtained. FINDINGS: The cardiomediastinal silhouette is unremarkable. The trachea is midline. The lungs are clear. There is no effusion or pneumothorax. Mild aortic atherosclerosis. The bones are intact. IMPRESSION: No acute pulmonary process. at 1424 Reported and signed by: Ambrosio Molina M.D. CC: Kanwal Carrillo MD Technologist: Rene Pichardo, RT(R) Transcrpt Date/Tm/Trnsp: 08/20/2020 (4272) t.ZULMAR.RK5 Orig Print D/T: S: 08/20/2020 (6296) [facility] NAME: MATTHEW MATHEWS [id number] PHYS: [place] [address] : 1950 AGE: 70 SEX: F LOC: Le PHONE #: [phone] EXAM DATE: 08/20/2020 STATUS: PRE IN FAX #: [phone] RADIOLOGY NO: PAGE 1 Signed ReportBASIC METABOLIC [id number] 14:04:00 Test Item Value Reference Range Interpretation [...] = 9.3 MG/DL 8.4-10.2 N CA) PROTHROMBIN [id number] 13:48:00 Test Item Value Reference Range Interpretation [...] syste robby embolism. 3.0 - 4.5 PTT [id number] 13:48:00 Test Item Value Reference Range Interpretation Comments PTT ACTIVATED (test 66.2 SECONDS 25.1-36.5 HH CALLED T Beverly JOSEPH G code = APTT) & READBACK ON 08/20/20 AT 134 7 BY Jay Olguin CBC W/AUTO [id number] 13:17:00 Test Item Value Reference Range Interpretation [...] 0.00 K/mm3 0.0-0.1 N NRBC#) BASIC METABOLIC [id number] 06:51:00 Test Item Value Reference Range Interpretation [...] 0-189 mg/dL VERY HIGH...... ...>/= 190 mg/dL [id number] 06:51:00 Test Item Value Reference Range Interpretation Comments MAGNESIUM (test code = MAG) 2.5 MG/DL 1.6-2.3 H BASIC METABOLIC [id number] 06:40:00 Test Item Value Reference Range Interpretation [...] LDL (test MG/DL 0-99 code = LDL) [id number] 06:40:00 Test Item Value Reference Range Interpretation Comments MAGNESIUM (test code = MAG) 2.5 MG/DL 1.6-2.3 H PROTHROMBIN [id number] 06:35:00 Test Item Value Reference Range Interpretation [...] syste robby embolism. 3.0 - 4.5 PTT [id number] 06:35:00 Test Item Value Reference Range Interpretation Comments PTT ACTIVATED (test code = APTT) 51.6 SECONDS 25.1-36.5 H CBC W/AUTO [id number] 06:23:00 Test Item Value Reference Range Interpretation [...] 0.0-0.1 N NRBC#) COVID 19 Asymptomatic IH [id number] 05:51:00 Test Item Value Reference Range Interpretation [...] of virus (antigen) in the sample." CHEM [id number] 20:09:0028[facility] [id number] 20:09:0027 [facility] [id number] 20:09:000.95[facility] PANEL 2019-08-15 20:09:0060[facility] [id number] 20:09:0070[facility] [id number] 20:09:0028[facility] [id number] 20:09:0027[facility] [id number] 20:09:000.95[facility] [id number] 20:09:0060[facility] [id number] 20:09:0070 [facility] [id number] 20:09:0028[facility] PANEL 2019-08-15 20:09:0027[facility] [id number] 20:09:000.95[facility] [id number] 20:09:0060[facility] [id number] 20:09:0070[facility] [id number] 20:09:0028[facility] [id number] 20:09:0027[facility] [id number] 20:09:000.95 [facility] [id number] 20:09:0060[facility] PANEL 2019-08-15 20:09:0070[facility] [id number] 20:09:0028[facility] [id number] 20:09:0027[facility] [id number] 20:09:000.95[facility] [id number] 20:09:0060[facility] [id number] 20:09:0070[facility] [id number] 20:09:0028 [facility] [id number] 20:09:0027[facility] PANEL 2019-08-15 20:09:000.95[facility] [id number] 20:09:0060[facility] [id number] 20:09:0070[facility]annTISSUE [id number] 13:10:00Surgical Pathology Report Case: [id number] Authorizing Provider: Cornelio Ortiz MD Collected: 01/09/2018 1704 Ordering Location: [facility] Received: 01/10/2018 0831 SERVICES Pathologist: Avery Leal MD Specimen: Large Intestine, Colon - Rectosigmoid, rectosigmoid and donuts A. RECTUM AND SIGMOID COLON, LAPAROSCOPIC LOW ANTERIOR RESECTION: COLON WITH DIVERTICULAR DISEASE.NEGATIVE FOR DYSPLASIA OR INVASIVE CARCINOMA.SURGICAL MARGINS VIABLE. Signing Pathologist Direct Phone Line: [phone] signed by Avery Leal MD on 01/12/2018 at 1:10 [id number] of colon Rectosigmoid colon and donutsReceived fresh [...] Section code: A1-A2, parallel resection margins; A3-A9, automotive leasing sales representative sections of mucosal outpouchings; A10, automotive leasing sales representative sections of intestinal rings. DB/plPerformed. BASIC METABOLIC [id number] 06:17:00 Test Item Value Reference Range Interpretation [...] (BEAKER) (test code = 413) BASIC METABOLIC [id number] 05:44:00 Test Item Value Reference Range Interpretation [...] 413) CBC WITH PLATELET COUNT + MANUAL [id number] 16:02:00 Test Item Value Reference Range Interpretation [...] 0-1 PERCENT (BEAKER) (test code = 2801) [id number] 11:33:00 Test Item Value Reference Range Interpretation Comments ALBUMIN (BEAKER) (test code = 1145) 4.2 g/dL 3.5-5.0 [id number] 13:50:00 Test Item Value Reference Range Interpretation Comments SODIUM (BEAKER) (test code = 381) 138 meq/L 136-145 POTASSIUM (BEAKER) (test code = 4.7 meq/L 3.5-5.1 379) CHLORIDE (BEAKER) (test code = 382) 109 meq/L 98-107 H CO2 (BEAKER) (test code = 355) 22 meq/L 22-29 BUN AND [id number] 13:50:00 Test Item Value Reference Range Interpretation Comments BLOOD UREA NITROGEN 20 mg/dL 7-21 (BEAKER) (test code = 354) CREATININE (BEAKER) 0.78 mg/dL 0.57-1.25 (test code = 358) EGFR (BEAKER) (test 73 mL/min/1.73 ESTIMA ROSLYN GFR IS code = 1092) sq m NOT ACCURATE CREATININE CLEARANCE IN PREDICTING GLOMERULAR FILTRATION RATE . ESTIMATED GFR I S NOT APPLICABLE FOR DIALYSIS CHEN TS. [id number] 13:12:00 Test Item Value Reference Range Interpretation Comments HEMOGLOBIN (BEAKER) (test code = 11.8 GM/DL 11.2-15.7 410)
[2021-08-21] MEDS ORDERED: LORazepam 2 MG/ML VIAL ONE (03:14)
[2021-08-21 03:22] LABS: Urine Blood 2+ (Negative); Urine Glucose Negative (Negative); Urine Protein 2+ (Negative); Urine Specific Gravity 1.015 (1.005-1.030); Urine pH 8.5 (5.0-7.0)
[2021-08-21] MEDS ORDERED: LEVETIRACETAM 500 MG/5 ML VIAL IV ONE ×3 (03:34→22:44)
[2021-08-21] MEDS ORDERED: Meropenem 1000 MG/VIAL IV ONE ×3 (03:34→19:05)
[2021-08-21] MEDS ORDERED: NA CHLORIDE 0.9% 200 ML IV ONE ×2 (03:35→09:18)
[2021-08-21] MEDS ORDERED: NA CHLORIDE 0.9% 1,000 ML ONE (03:35)
[2021-08-21] MEDS ORDERED: ACETAMINOPHEN 650MG/RECT SUPP PR ONE (03:35)
[2021-08-21 03:48] LABS: Protime INR 1.21
[2021-08-21 03:49] LABS: Absolute Lymphocytes (CBC) 1.7 K/uL (0.7-4.9); Hematocrit 33.2 % (36.0-45.0); Lymphocytes % 11.5 % (15.3-44.8); MPV 7.4 fL (7.6-11.3); RBC Red Blood Cell Count 4.07 M/uL (3.86-4.86)
[2021-08-21 04:04] LABS: Bilirubin Direct 0.1 mg/dL (0-0.2); Bilirubin Total 0.2 mg/dL (0.2-1.0); Magnesium 2.1 mg/dL (1.8-2.4); Potassium 3.1 mmol/L (3.5-5.1); Protein, Total 6.6 g/dL (6.4-8.2); Troponin High Sensitivity 16.9 pg/mL (<58.9)
[2021-08-21 05:20] LABS: Blood Morphology Comment NOT SEEN (NOT SEEN); Platelet Estimate INCR; White Blood Cell Scan OK (OK)
[2021-08-21 05:30] LABS: SARS-COV-2 RT PCR NEGATIVE (NEGATIVE)
--- NOTE | 2021-08-21 05:47 | ER ---
Nurse's Notes [facility] Name: Kali Kumar Age: 71 yrs Sex: Female : 1950 Arrival Date: 08/21/2021 Time: 03:01 Bed 4 Private MD: Diagnosis: Epileptic seizures related to external causes, not intractable;Fever, unspecified;UTI/ Urinary tract infection, site not specified;Hypokalemia;Elevated white blood cell count;Do not resuscitate Presentation: 08/21 03:02 Acuity: ISAIAS 2 tw5 03:08 Chief complaint: EMS states: pt was brought from [facility]. ems toned out as6 for unresponsiveness/AMS. Coronavirus screen: Client presents with at least one sign or symptom that may indicate coronavirus-19. Ebola Screen: No symptoms or risks identified at this time. Initial Sepsis Screen: Does the patient meet any 2 criteria? RR > 20 per min. Altered Mental Status. HR > 90 bpm. Yes Does the patient have a suspected source of infection? Yes: Dysuria/Frequency/Urgency/UTI. Risk Assessment: Do you want to hurt yourself or someone else? Unable to obtain. Onset of symptoms is unknown. 03:08 Method Of Arrival: EMS: [facility] as6 Historical: - Allergies: 03:18 Codeine; as6 - PMHx: 03:18 Anxiety; Depression; Hemiplegia and Hemiparesis to Left dominant side; Hyperlipidemia; as6 Hypertension; Hypothyroidism; Major depressie disorder with psychotic symptoms; MUSCLE WEAKNESS; - Immunization history:: Adult Immunizations unknown. - Social history:: Smoking status: unknown. - Family history:: not pertinent. Screenin:56 Abuse screen: Denies threats or abuse. Nutritional screening: No deficits noted. st1 Tuberculosis screening: No symptoms or risk factors identified. Fall Risk None identified. No fall in past 12 months (0 pts). Secondary diagnosis (15 points) seizures, Alzheimer's, dementia, impaired mobility, IV access (20 points). Ambulatory Aid- None/Bed Rest/Nurse Assist (0 pts). Gait- Impaired (20 pts.). Mental Status- Overestimates/Forgets Limitations (15 pts.). Total Schulz Fall Scale indicates High Risk Score (45 or more points). Fall prevention measures have been instituted. Side Rails Up X 2 Frequent Obs/Assessments Occuring As available patient and family educated on Fall Prevention Program and Strategies. Assessment: 03:00 General: pt having seizure like activity . as6 03:00 General: Appears ill, unkempt, Behavior is unresponsive. as6 03:00 Pain: Unable to use pain scale. Patient is unresponsive. Neuro: Level of Consciousness as6 is post ictal, unresponsive. Cardiovascular: Rhythm is sinus tachycardia. Cardiovascular: Edema. Respiratory: Airway is patent Trachea midline Respiratory effort is even, labored, Respiratory pattern is symmetrical. : Zamarripa in place Urine is cloudy. Derm: stage 2 pressure injury to sacrum. 03:10 General: pt seizing, provider notified . as6 04:22 General: family at bedside . as6 Vital Signs: 03:00 BP 175 / 54; Pulse 108; Resp 25 S; Pulse Ox 100% on 15% Non-rebreather mask; as6 03:08 BP 150 / 48; Pulse 129; Resp 29 S; Temp 99.6(C); Pulse Ox 100% on Non-rebreather mask; as6 Weight 104.33 kg; 04:00 BP 171 / 69; Pulse 98; Resp 28; Temp 99.1(C); Pulse Ox 100% on 15% Non-rebreather mask; as6 05:00 BP 191 / 71; Pulse 97; Resp 28 S; Temp 99.2(C); Pulse Ox 100% on 15% Non-rebreather as6 mask; 06:00 BP 202 / 72; Pulse 100; Resp 20 S; Temp 98.4(C); Pulse Ox 100% on 15% Non-rebreather as6 mask; 06:41 BP 208 / 70; Pulse 100; Resp 20 S; Temp 99.5(C); Pulse Ox 100% on 15% Non-rebreather as6 mask; Cailin Coma Score: 03:00 Eye Response: to pain(2). Verbal Response: none(1). Motor Response: withdraws from as6 pain(4). Total: 7. ED Course: 03:01 Patient arrived in ED. tw5 03:02 Triage completed. tw5 03:07 Adithya Vizcaino, BALJEET is Primary Nurse. as6 03:10 Inserted saline lock: 20 gauge in right antecubital area, using aseptic technique. as6 Blood collected. 03:14 Harish Welsh MD is Attending Physician. abilio 03:15 Zamarripa cath inserted, using sterile technique, 18 Fr., by mn, balloon inflated, to as6 gravity drainage, urine specimen collected. 03:55 Inserted saline lock: 20 gauge in left forearm, using aseptic technique. st1 03:56 No provider procedures requiring assistance completed. st1 03:56 Patient has correct armband on for positive identification. Placed in gown. Bed in low st1 position. Call light in reach. Side rails up X2. monitoring tech on. Pulse ox on. NIBP on. Noise minimized. Lights dimmed. Verbal reassurance given. Head of bed elevated. Assisted with dressing. Repositioned patient. Cleaned of incontinence. Linen changed. 04:36 Arm band placed on. as6 04:41 XRAY Chest (1 view) In Process Unspecified. EDMS 05:43 Head C Spine Mpr Wo Con In Process Unspecified. EDMS 05:46 Naveen Crawford MD is Hospitalizing Provider. abilio 06:33 the patient has a stage 2 sacral ulcer upon admission to the ED. st1 07:00 Patient admitted, IV remains in place. intact. jl7 Administered Medications: 03:12 Drug: Ativan (LORazepam) 1 mg Route: IVP; Site: right antecubital; as6 06:07 Follow up: Response: No adverse reaction as6 03:42 Drug: Keppra (levETIRAcetam) 1000 mg Route: IV; Rate: per protocol; Site: right as6 antecubital; 06:07 Follow up: Response: No adverse reaction; IV Status: Completed infusion; IV Intake: as6 100ml 03:42 Drug: NS 0.9% 1000 ml Route: IV; Rate: 1 bolus; Site: right antecubital; as6 06:08 Follow up: Response: No adverse reaction; IV Status: Completed infusion; IV Intake: as6 1000ml 03:51 Drug: Meropenem 1 grams Route: IV; Rate: per protocol; Site: left forearm; as6 06:07 Follow up: Response: No adverse reaction; IV Status: Completed infusion; IV Intake: as6 100ml 03:51 Drug: Tylenol Suppository 650 mg Route: SC; as6 06:08 Follow up: Response: No adverse reaction as6 Intake: 06:07 IV: 100ml; Total: 100ml. as6 06:07 IV: 100ml; Total: 200ml. as6 06:08 IV: 1000ml; Total: 1200ml. as6 Output: 06:41 Urine: 500ml (Zamarripa); Total: 500ml. as6 Outcome: 05:47 Decision to Hospitalize by Provider. abilio 07:00 Admitted to ER Hold. Please see [facility] for further documentation. jl7 07:00 Condition: stable 07:00 Discharge instructions given to family, Instructed on the need for admit, Demonstrated understanding of instructions. 08/22 03:03 Patient left the ED. as6 Signatures: Dispatcher [employer] EDMS Harish Welsh MD MD cha Leal, Jahala RN RN jl7 Sapna Pryor tw5 Adithya Vizcaino RN RN as6 Danette Serra, BALJEET RN st1 Corrections: (The following items were deleted from the chart) 08/21 04:21 03:55 LACTATE+C.LAB.BRZ drawn and sent. st1 EDMS 04: 03:55 PCT+C.LAB.BRZ drawn and sent. st1 EDMS 04: 03:55 Troponin High Sensitivity+C.LAB.BRZ drawn and sent. st1 EDMS 04: 03:55 BASIC METABOLIC PANEL+C.LAB.BRZ drawn and sent. st1 EDMS 04: 03:55 CBC+H.LAB.BRZ drawn and sent. st1 EDMS 04: 03:56 PROTIME (+INR)+COAG.LAB.BRZ drawn and sent. st1 EDMS 04: 03:56 MAGNESIUM+C.LAB.BRZ drawn and sent. st1 EDMS 04: 03:56 HEPATIC FUNCTION+C.LAB.BRZ drawn and sent. st1 EDMS 04: 03:56 PROBNP+C.LAB.BRZ drawn and sent. st1 EDMS 04: 03:56 BLOOD CULTURE*+BA.LAB.BRZ drawn and sent. st1 EDMS
--- NOTE | 2021-08-21 05:47 | EDPHYS ---
Physician Documentation [facility] Name: Kali Kumar Age: 71 yrs Sex: Female : 1950 Arrival Date: 08/21/2021 Time: 03:01 Bed 4 Private MD: ED Physician Harish Welsh HPI: 08/21 03:20 This 71 yrs old Unknown Female presents to ER via EMS with complaints of Decreased LOC. abilio 03:20 The patient's problem is reported as altered mental status, an apparent seizure, Motor abilio activity is described as "shaking all over", Extended loss of consciousness. Patient was not incontinent of bowel or bladder. Patient was not apneic. Loss of pulse was not noted. Onset: The symptoms/episode began/occurred 3 day(s) ago. Historical: - Allergies: 03:18 Codeine; as6 - PMHx: 03:18 Anxiety; Depression; Hemiplegia and Hemiparesis to Left dominant side; Hyperlipidemia; as6 Hypertension; Hypothyroidism; Major depressie disorder with psychotic symptoms; MUSCLE WEAKNESS; - Immunization history:: Adult Immunizations unknown. - Social history:: Smoking status: unknown. - Family history:: not pertinent. ROS: 03:20 Unable to obtain ROS due to obtunded state. abilio Exam: 03:20 Constitutional: The patient appears febrile, lethargic. abilio 03:20 Head/face: Noted is 03:20 Eyes: Pupils: equal, round, and reactive to light and accomodation, EYES DEVIATED TO THE RIGHT. 03:20 Cardiovascular: Rate: tachycardic, Rhythm: regular. 03:20 Respiratory: mild respiratory distress is noted, Respirations: labored breathing, that is moderate, Breath sounds: bronchial sounds, that are moderate, are heard diffusely, decreased breath sounds, that are moderate, are scattered, rhonchi, that are moderate, stridor, is not appreciated. 03:30 ECG was reviewed by the Attending Physician. [facility] Vital Signs: 03:00 BP 175 / 54; Pulse 108; Resp 25 S; Pulse Ox 100% on 15% Non-rebreather mask; as6 03:08 BP 150 / 48; Pulse 129; Resp 29 S; Temp 99.6(C); Pulse Ox 100% on Non-rebreather mask; as6 Weight 104.33 kg; 04:00 BP 171 / 69; Pulse 98; Resp 28; Temp 99.1(C); Pulse Ox 100% on 15% Non-rebreather mask; as6 05:00 BP 191 / 71; Pulse 97; Resp 28 S; Temp 99.2(C); Pulse Ox 100% on 15% Non-rebreather as6 mask; 06:00 BP 202 / 72; Pulse 100; Resp 20 S; Temp 98.4(C); Pulse Ox 100% on 15% Non-rebreather as6 mask; 06:41 BP 208 / 70; Pulse 100; Resp 20 S; Temp 99.5(C); Pulse Ox 100% on 15% Non-rebreather as6 mask; Cailin Coma Score: 03:00 Eye Response: to pain(2). Verbal Response: none(1). Motor Response: withdraws from as6 pain(4). Total: 7. MDM: 03:14 Patient medically screened. [facility] 08/21 03:47 Order name: Urine Dipstick-Ancillary; Complete Time: 04:16 EDMS 08/21 03:48 Order name: Protime (+INR) EDDE 08/21 03:55 Order name: CBC with Automated Diff; Complete Time: 05:26 EDMS 08/21 04:03 Order name: Lactate EDMS 08/21 03:20 Order name: XRAY Chest (1 view); Complete Time: 17:45 [facility] 08/21 04:04 Order name: Basic Metabolic Panel; Complete Time: 04:16 EDMS 08/21 04:04 Order name: Liver (Hepatic) Function; Complete Time: 04:16 EDMS 08/21 04:04 Order name: Troponin High Sensitivity; Complete Time: 04:16 EDMS 08/21 04:04 Order name: NT PRO-BNP; Complete Time: 04:16 EDMS 08/21 04:04 Order name: Magnesium; Complete Time: 04:16 EDMS 08/21 04:04 Order name: Procalcitonin; Complete Time: 05:26 EDMS 08/21 04:04 Order name: Blood Culture EDMS 08/21 04:04 Order name: Blood Culture EDMS 08/21 04:19 Order name: COVID-19/FLU A+B (Document "Date of Onset" if Symptomatic); Complete Time: as6 05:45 08/21 05:21 Order name: CBC Smear Scan; Complete Time: 05:26 EDMS 08/21 06:06 Order name: Urine Microscopic Only la1 08/21 10:00 Order name: Lactate Sepsis 2 HR Follow-up; Complete Time: 12:32 EDMS 08/21 11:39 Order name: Blood Culture EDDE 08/21 03:20 Order name: EKG; Complete Time: 03:50 [facility] 08/21 03:20 Order name: Cardiac monitoring; Complete Time: 03:23 [facility] 08/21 03:20 Order name: EKG - Nurse/Tech; Complete Time: 03:23 [facility] 08/21 03:20 Order name: IV Saline Lock; Complete Time: 03:23 [facility] 08/21 03:20 Order name: Labs collected and sent; Complete Time: 03:23 [facility] 08/21 03:20 Order name: O2 Per Protocol; Complete Time: 03:23 [facility] 08/21 03:20 Order name: O2 Sat Monitoring; Complete Time: 03:23 [facility] 08/21 03:20 Order name: Zamarripa; Complete Time: 03:22 [facility] 08/21 04:11 Order name: Head C Spine Mpr Wo Con EDMS EC:30 Rate is 112 beats/min. Rhythm is regular. QRS Mobile is Normal. UT interval is normal. abilio QRS interval is normal. QT interval is normal. No Q waves. T waves are Normal. No ST changes noted. Clinical impression: Abnormal EKG without significant change. Interpreted by me. Reviewed by me. Administered Medications: 03:12 Drug: Ativan (LORazepam) 1 mg Route: IVP; Site: right antecubital; as6 06:07 Follow up: Response: No adverse reaction as6 03:42 Drug: Keppra (levETIRAcetam) 1000 mg Route: IV; Rate: per protocol; Site: right as6 antecubital; 06:07 Follow up: Response: No adverse reaction; IV Status: Completed infusion; IV Intake: as6 100ml 03:42 Drug: NS 0.9% 1000 ml Route: IV; Rate: 1 bolus; Site: right antecubital; as6 06:08 Follow up: Response: No adverse reaction; IV Status: Completed infusion; IV Intake: as6 1000ml 03:51 Drug: Meropenem 1 grams Route: IV; Rate: per protocol; Site: left forearm; as6 06:07 Follow up: Response: No adverse reaction; IV Status: Completed infusion; IV Intake: as6 100ml 03:51 Drug: Tylenol Suppository 650 mg Route: UT; as6 06:08 Follow up: Response: No adverse reaction as6 Disposition Summary: 08/21/21 05:47 Hospitalization Ordered Hospitalization Status: Inpatient Admission abilio Provider: Nvaeen Crawford cha Condition: Guarded abilio Problem: new abilio Symptoms: have improved abilio Bed/Room Type: Standard abilio Location: [facility] ER HOLD(08/21/21 13:58) em1 Room Assignment: ERHOLD-(08/21/21 13:58) em1 Diagnosis - Epileptic seizures related to external causes, not intractable abilio - Fever, unspecified abilio - UTI/ Urinary tract infection, site not specified abilio - Hypokalemia abilio - Elevated white blood cell count abilio - Do not resuscitate abilio Forms: - Medication Reconciliation Form abilio - SBAR form abilio Signatures: Dispatcher [employer] EDHarish Borja MD MD cha Nieto, Roman, MD MD rn Jared, [facility] em1 Freddy Phelps, PACKAGE LINE RELIEF OPERATOR-C PACKAGE LINE RELIEF OPERATOR-Cla1 Adithya Vizcaino, BALJEET RN as6 Corrections: (The following items were deleted from the chart) 04:10 04:08 CT HEAD,C-SPINT W/O ordered. EDMS EDMS 04:11 03:50 Head Brain Wo Cont+CT.RAD.BRZ ordered. EDMS EDMS 04:21 03:50 BASIC METABOLIC PANEL+C.LAB.BRZ ordered. EDMS EDMS 04:21 03:50 CBC+H.LAB.BRZ ordered. EDMS EDMS 04:21 03:50 HEPATIC FUNCTION+C.LAB.BRZ ordered. EDMS EDMS 04:21 03:50 MAGNESIUM+C.LAB.BRZ ordered. EDMS EDMS 04:21 03:50 PROBNP+C.LAB.BRZ ordered. EDMS EDMS 04:21 03:50 PROTIME (+INR)+COAG.LAB.BRZ ordered. EDMS EDMS 04:21 03:50 Troponin High Sensitivity+C.LAB.BRZ ordered. EDMS EDMS 04:21 03:50 LACTATE+C.LAB.BRZ ordered. EDMS EDMS 04:21 03:50 PCT+C.LAB.BRZ ordered. EDMS EDMS 04:21 03:50 BLOOD CULTURE*+BA.LAB.BRZ ordered. EDMS EDMS :58 05:47 Telemetry/MedSurg (Inpatient) [place] [address] :58 05:47 [place] [address]
--- NOTE | 2021-08-21 06:14 | P.HP ---
Certification for Inpatient Patient admitted to: Inpatient Patient will require the following post-hospital care: None Practitioner: I am a practitioner with admitting privileges, knowledge of patient current condition, hospital course, and medical plan of care. Services: Services provided to patient in accordance with Admission requirements found in Title 42 Section 412.3 of the Code of Federal Regulations <Freddy Phelps - Last Filed: 08/21/21 06:07> Patient History Date of Service: 08/21/21 Primary Care Provider: prison doctor Reason for admission: Severe sepsis, UTI History of Present Illness: 71-year-old female with history of multiple previous CVAs, carotid artery disease, hypertension, hypothyroidism, dementia who is currently bedbound in [facility] presented to the emergency department for decreased mentation. Patient reported by [facility] staff that patient was unresponsive upon ar rival to the emergency department patient was not responding well to painful stimulus. Code sepsis was called given the patient was tachycardic with low- grade fever decreased mentation. ED provider discussed case with patient's medical power of corporate associate attorney Neo at that time who stated that he did not want his mother to be intubated or placed on ventilator at that time. Evaluation in the ER demonstrated lab significant for leukocytosis, elevated platelet count 1085 lactic acidosis 3.8 urinalysis with 3+ leukoesterase. After IV fluids and antibiotic patient mentation began to improve, currently patient's sons are at bedside report that she is not far from her baseline. She is awake, very drowsy and groaning. Patient is bedbound with very limited mobility of any of her extremities, requires total care [facility] including feeding. MPOA signed DNR order with the ED physician including DNR/DNI no use of vasopressors or cardioversion. Okay for IV fluids and antibiotics at this time. Patient with severe sepsis secondary to UTI. Will admit for further evaluation and management - Past Medical/Surgical History Diabetic: No -: hypertension -: hypothyroidism -: high cholesterol -: diverticulitis perforated -: CAD -: Anxiety -: Multiple CVA -: Carotid artery disease -: Dementia -: cardiac stent, endarterectomy -: thyroidectomy -: cholecystectomy -: appendectomy -: tubal ligation -: bladder suspension -: knee SX -: hysterectomy Psychosocial/ Personal History: Patient is resident of [facility] - Family History Brother -: Heart disease, Hypertension, Diabetes, Other (see notes) Notes: parkinsons Sister -: Hypertension, GI disease, Other (see notes) Notes: diverticulosis - Social History Alcohol use: No CD- Drugs: No Caffeine use: Yes Place of Residence: [facility] <Freddy Phelps Chucky Tong - Last Filed: 08/21/21 06:07> Date of Service: 08/21/21 <Naveen Crawford - Last Filed: 08/21/21 18:12> Allergies codeine Allergy (Verified 07/26/16 01:41) Itching Home Medications: Amlodipine Besylate [Norvasc] 10 mg PO DAILY 08/14/14 Clopidogrel Bisulfate [Plavix] 75 mg PO DAILY 08/14/14 Rosuvastatin Calcium [Crestor] 40 mg PO BEDTIME 08/14/14 Levothyroxine [Synthroid*] 125 mcg PO [id number] 07/26/16 Clonidine HCl [Catapres*] 1 tab TID 03/05/21 Metoprolol Succinate [Toprol Xl*] 1 tab BID 03/05/21 Nifedipine [Nifedipine ER] 1 tab DAILY 03/05/21 Review of Systems is unable to be obtained <Freddy Phelps - Last Filed: 08/21/21 06:07> Physical Examination - Physical Exam General: Demented, Confused, Other (Eyes open, groans) HEENT: Atraumatic Neck: 2+ carotid pulse no bruit Respiratory: Diminished Cardiovascular: Normal S1 S2 Capillary refill: <2 Seconds Gastrointestinal: Normal bowel sounds, Soft and benign Musculoskeletal: No erythema, No tenderness Integumentary: No significant lesion Neurological: Other (Bedbound, groans no meaningful movement or response.) - Studies Laboratory Data (last 24 hrs) 08/21/21 03:20: PT Cancelled, INR Cancelled 08/21/21 03:20: WBC Cancelled, Hgb Cancelled, Hct Cancelled, Plt Count Cancelled 08/21/21 03:20: Sodium Cancelled, Potassium Cancelled, BUN Cancelled, Creatinine Cancelled, Glucose Cancelled, Magnesium Cancelled, Total Bilirubin Cancelled, AST Cancelled, ALT Cancelled, Alkaline Phosphatase Cancelled 08/21/21 03:11: PT 13.4 H, INR 1.21 08/21/21 03:11: WBC 14.4 H, Hgb 10.4 L, Hct 33.2 L, Plt Count 1085 H* 08/21/21 03:11: Sodium 144, Potassium 3.1 L, BUN 25 H, Creatinine 0.76, Glucose 200 H, Magnesium 2.1, Total Bilirubin 0.2, AST 11 L, ALT 16, Alkaline Phosphatase 125 H <Freddy Phelps - Last Filed: 08/21/21 06:07> - Studies Laboratory Data (last 24 hrs) 08/21/21 03:20: PT Cancelled, INR Cancelled 08/21/21 03:20: WBC Cancelled, Hgb Cancelled, Hct Cancelled, Plt Count Cancelled 08/21/21 03:20: Sodium Cancelled, Potassium Cancelled, BUN Cancelled, Creatinine Cancelled, Glucose Cancelled, Magnesium Cancelled, Total Bilirubin Cancelled, AST Cancelled, ALT Cancelled, Alkaline Phosphatase Cancelled 08/21/21 03:11: PT 13.4 H, INR 1.21 08/21/21 03:11: WBC 14.4 H, Hgb 10.4 L, Hct 33.2 L, Plt Count 1085 H* 08/21/21 03:11: Sodium 144, Potassium 3.1 L, BUN 25 H, Creatinine 0.76, Glucose 200 H, Magnesium 2.1, Total Bilirubin 0.2, AST 11 L, ALT 16, Alkaline Phosphatase 125 H <Naveen Crawford - Last Filed: 08/21/21 18:12> Assessment and Plan - Plan Assessment: Severe sepsis secondary to UTIchronic indwelling Zamarripa catheter Metabolic encephalopathy related to severe sepsis/UTI History of multiple CVAsbedbound Seizures Dementia Hypertension Hypothyroidism Plan: Severe sepsis secondary to UTIchronic indwelling Zamarripa catheter: Patient was given IV fluids, antibiotics including Merrem in the emergent emergency department, repeat lactate pending at this time. No signs of endorgan damage at this time patient is not hypotensive continue with maintenance fluids. Will trend lactate level. Urine/blood cultures obtained will follow. Metabolic encephalopathy related to severe sepsis/UTI: Continue as above neurology consulted as well. History of multiple CVAsbedbound: Neurology consult in place, patient with history of multiple large CVAs is currently bedbound, unable to care for self including feeding. Patient also with history of carotid artery disease, had vascular surgery last year although family reports that when it was checked again after the surgery she still had significant carotid stenosis. There were no other interventions that can be offered at that time. Seizures: Continue Keppra 500 mg twice daily switch to IV as patient currently has not awake enough to tolerate p.o. Dementia: Continue as above, patient at baseline sometimes recognizes family, can periodically verbally communicate. Hypertension: As needed antihypertensives at this time as patient is n.p.o. Hypothyroidism: Continue home medication when appropriate. DVT PPX: Lovenox Code status: DNR/DNI Discharge Plan: Home Plan to discharge in: 72 Hours - Advance Directives Does patient have a Living Will: No Does patient have a Durable POA for Healthcare: No - Code Status/Comfort Care Code Status Assessed: Yes (DNR/DNI) Critical Care: No Time Spent Managing Pts Care (In Minutes): 55 <Freddy Phelps - Last Filed: 08/21/21 06:07> - Plan Agree with plan of care as noted above. Patient seen and examined shortly after admission. withdraws to pain, otherwise unresponsive. +anasarca SBP >200, Cr ok; give 40mg IV lasix, hydralazine IV for BP requires ICU level of care for now Severe sepsis, encephalopathy, severe HTN seizure activity noted in ED, continue florinda, eleni unsure if she has had seizure before <Naveen Crawford - Last Filed: 08/21/21 18:12>
[2021-08-21 07:30] VITALS: BMI 38.2
[2021-08-21] MEDS ORDERED: ONDANSETRON 4 MG/2 ML VIAL IV PRN (07:30)
[2021-08-21] MEDS ORDERED: NA CHLORIDE 0.9% 1,000 ML IV SCH (07:30)
[2021-08-21] MEDS ORDERED: HYDRALAZINE HCL 20 MG/ML VIAL IV PRN (07:38)
[2021-08-21] MEDS ORDERED: FUROSEMIDE 40 MG/4 ML VIAL IV ONE (07:38)
--- NOTE | 2021-08-21 08:15 | P.CNS ---
Date of Consult: 08/21/21 Reason for Consult: Hypokalemia Requesting Physician: Naveen Crawford Primary Care Provider: [facility] doctor Chief Complaint: Severe sepsis, UTI History of Present Illness: 71-year-old female with history of multiple previous CVAs, carotid artery disease, hypertension, hypothyroidism, dementia who is currently bedbound in [facility] presented to the emergency department for decreased mentation. Patient reported by [facility] staff that patient was unresponsive upon arrival to the emergency department patient was not responding well to painful stimulus. Code sepsis was called given the patient was tachycardic with low- grade fever decreased mentation. ED provider discussed case with patient's medical power of family law attorney Neo at that time who stated that he did not want his mother to be intubated or placed on ventilator at that time. Evaluation in the ER demonstrated lab significant for leukocytosis, elevated platelet count 1085 lactic acidosis 3.8 urinalysis with 3+ leukoesterase. After IV fluids and antibiotic patient mentation began to improve, currently patient's sons are at bedside report that she is not far from her baseline. She is awake, very drowsy and groaning. Patient is bedbound with very limited mobility of any of her extremities, requires total care [facility] including feeding. MPOA signed DNR order with the ED physician including DNR/DNI no use of vasopressors or cardioversion. Okay for IV fluids and antibiotics at this time. Patient with severe sepsis secondary to UTI. Will admit for further evaluation and management. 03:20 This 71 yrs old Unknown Female presents to ER via EMS with complaints of Decreased LOC. abilio 03:20 The patient's problem is reported as altered mental status, an apparent seizure, Motor abilio activity is described as "shaking all over", Extended loss of consciousness. Patient was not incontinent of bowel or bladder. Patient was not apneic. Loss of pulse was not noted. Onset: The symptoms/episode began/occurred 3 day(s) ago. Allergies codeine Allergy (Verified 07/26/16 01:41) Itching Home medications list reviewed: Yes Home Medications: Amlodipine Besylate [Norvasc] 10 mg PO DAILY 08/14/14 Clopidogrel Bisulfate [Plavix] 75 mg PO DAILY 08/14/14 Rosuvastatin Calcium [Crestor] 40 mg PO BEDTIME 08/14/14 Levothyroxine [Synthroid*] 125 mcg PO [id number] 07/26/16 Clonidine HCl [Catapres*] 1 tab TID 03/05/21 Metoprolol Succinate [Toprol Xl*] 1 tab BID 03/05/21 Nifedipine [Nifedipine ER] 1 tab DAILY 03/05/21 - Past Medical/Surgical History Diabetic: No -: hypertension -: hypothyroidism -: high cholesterol -: diverticulitis perforated -: CAD -: Anxiety -: Multiple CVA -: Carotid artery disease -: Dementia -: cardiac stent, endarterectomy -: thyroidectomy -: cholecystectomy -: appendectomy -: tubal ligation -: bladder suspension -: knee SX -: hysterectomy Psychosocial/ Personal History: Patient is resident of [facility] - Family History Brother Medical History: Heart disease, Hypertension, Diabetes, Other (see notes) Notes: parkinsons Sister Medical History: Hypertension, GI disease, Other (see notes) Notes: diverticulosis - Social History Smoking Status: Unknown if ever smoked Alcohol use: No CD- Drugs: No Caffeine use: Yes Place of Residence: [facility] Review of Systems is unable to be obtained Physical Examination General: In no apparent distress, Unresponsive HEENT: Atraumatic Neck: Supple Respiratory: Clear to auscultation bilaterally Cardiovascular: Edema (UE and Hip Edema) Gastrointestinal: Soft and benign (Abdominal bruit), Non-distended Musculoskeletal: No clubbing, No contractures Integumentary: No rashes, No cyanosis Laboratory Data (last 24 hrs) 08/21/21 03:20: PT Cancelled, INR Cancelled 08/21/21 03:20: WBC Cancelled, Hgb Cancelled, Hct Cancelled, Plt Count Cancelled 08/21/21 03:20: Sodium Cancelled, Potassium Cancelled, BUN Cancelled, Creatinine Cancelled, Glucose Cancelled, Magnesium Cancelled, Total Bilirubin Cancelled, AST Cancelled, ALT Cancelled, Alkaline Phosphatase Cancelled 08/21/21 03:11: PT 13.4 H, INR 1.21 08/21/21 03:11: WBC 14.4 H, Hgb 10.4 L, Hct 33.2 L, Plt Count 1085 H* 08/21/21 03:11: Sodium 144, Potassium 3.1 L, BUN 25 H, Creatinine 0.76, Glucose 200 H, Magnesium 2.1, Total Bilirubin 0.2, AST 11 L, ALT 16, Alkaline P hosphatase 125 H Imagings Data: EXAM DESCRIPTION: CT - Head C Spine Mpr Wo Con - 08/21/2021 7:03 am CLINICAL HISTORY: FEVER COMPARISON: None. TECHNIQUE: CT HEAD AND CERVICAL SPINE WITHOUT CONTRAST on 08/21/2021 3:20 AM CDT This exam was performed according to our departmental dose-optimization program, which includes automated exposure control, adjustment of the mA and/or kV according to patient size and/or use of iterative reconstruction technique. FINDINGS: Brain: There is no acute hemorrhage, mass effect or midline shift. There is encephalomalacia in the left parietal lobe as well as the right frontal and parietal lobes. There is no hydrocephalus. There is no significant volume loss for age. The calvarium is intact. Orbits and globes are unremarkable. The paranasal sinuses are clear. Mastoid air cells are clear. Cervical Spine: There is no acute fracture. There is grade 1 anterolisthesis of C4 on C5. There is mild mid cervical facet arthritis bilaterally. There is moderate severe narrowing of the C5-6 and C6-7 discs. Vertebral body heights are preserved. Soft tissues are unremarkable. IMPRESSION: No acute postraumatic findings. EXAM DESCRIPTION: RAD - Chest Single View - 08/21/2021 4:39 am CLINICAL HISTORY: COUGH COMPARISON: None. TECHNIQUE: XR CHEST 1 VIEW 08/21/2021 3:20 AM CDT FINDINGS: Cardiac silhouette is normal in size. Lungs are clear without consolidation, atelectasis, mass or edema. There is no pleural effusion. There is no pneumothorax. There are no acute osseous findings. IMPRESSION: Clear lungs. Conclusions/Impression: Proteinuria -No NSAIDs Hypokalemia -Replete potassium UE and Hip Edema -Start Lasix IV BID DM II with CKD -RISS PAD Abdominal Bruit -Abd imaging prn Moderate malnutrition -NPO at this time -Advance nutrition as tolerated Anemia in chronic illness Iron deficiency Thrombocytosis -Check iron status Toxic Metabolic Encephalopathy -Continue abx -Start IVF Sepsis Acute infective cystitis -Continue Meropenem -Follow up urine culture Case reviewed with Dr. Crawford Thank you kindly for the consultation. Critical Care: Yes
[2021-08-21] MEDS: Meropenem 1,000 MG in NA CHLORIDE 0.9% 100 ML IV SCH ×2 (09:00→17:00)
[2021-08-21] MEDS: D5W 1,000 ML IV SCH ×2 (09:00→19:00)
[2021-08-21] MEDS: KCL 20 MEQ/100 mL IVPB 20 MEQ/100 ML BAG IV SCH ×2 (09:00→11:00)
[2021-08-21] MEDS: levETIRAcetam 500 MG in NA CHLORIDE 0.9% 100 ML IV SCH ×2 (09:00→21:00)
[2021-08-21] MEDS ORDERED: ENOXAPARIN 40 MG/0.4 ML SQ SCH (09:00)
[2021-08-21] MEDS ORDERED: ENOXAPARIN 40 MG/0.4 ML SQ ONE (09:17)
[2021-08-21] MEDS ORDERED: KCL 20 MEQ/100 mL IVPB 100 ML IV ONE ×2 (09:17→12:25)
[2021-08-21] MEDS ORDERED: D5W 1,000 ML IV ONE ×2 (09:18→19:06)
--- NOTE | 2021-08-21 13:11 | RAD REPORT ---
EXAM DESCRIPTION: RAD - Chest Single View - 08/21/2021 4:39 am CLINICAL HISTORY: COUGH COMPARISON: None. TECHNIQUE: XR CHEST 1 VIEW 08/21/2021 3:20 AM CDT FINDINGS: Cardiac silhouette is normal in size. Lungs are clear without consolidation, atelectasis, mass or edema. There is no pleural effusion. There is no pneumothorax. There are no acute osseous fin dings. IMPRESSION: Clear lungs. Electronically signed by: Luis Barros MD 08/21/2021 5:48 AM CDT Due to temporary technical issues with the PACS/Fluency reporting system, reports are being signed by the in house radiologist without review as a courtesy to ensure prompt reporting. The interpreting r adiologist is fully responsible for the content of the report.
--- NOTE | 2021-08-21 14:02 | P.CNS ---
Date of Consult: 08/21/21 Primary Care Provider: custodial doctor Chief Complaint: Severe sepsis, UTI History of Present Illness: The patient is a 71-year-old female with past medical history of multiple previous CVAs, CAD, hypertension, hypothyroidism, and dementia who is currently bedbound in a shelter who presented to the emergency department secondary to decreased mentation. Per shelter staff the patient was unresponsive on arrival to the ED was not responding well to painful stimuli. Code sepsis was called secondary to patient's vital signs, lactic acidosis, and elevated WBC. Urinalysis with 3+ leuk leukoesterase, urine culture pending. Blood cultures pending. Patient placed on nonrebreather. Patient empirically placed on IV meropenem. Patient was at this facility on 06/07/2021 and noted to have MDR Enterococcus faecalis UTI. Patient has been admitted for further management, infectious diseases been consulted to manage patient's antibiotic regimen. Allergies codeine Allergy (Verified 07/26/16 01:41) Itching Home Medications: Amlodipine Besylate [Norvasc] 10 mg PO DAILY 08/14/14 Clopidogrel Bisulfate [Plavix] 75 mg PO DAILY 08/14/14 Rosuvastatin Calcium [Crestor] 40 mg PO BEDTIME 08/14/14 Levothyroxine [Synthroid*] 125 mcg PO [id number] 07/26/16 Clonidine HCl [Catapres*] 1 tab TID 03/05/21 Metoprolol Succinate [Toprol Xl*] 1 tab BID 03/05/21 Nifedipine [Nifedipine ER] 1 tab DAILY 03/05/21 - Past Medical/Surgical History Diabetic: No -: hypertension -: hypothyroidism -: high cholesterol -: diverticulitis perforated -: CAD -: Anxiety -: Multiple CVA -: Carotid artery disease -: Dementia -: cardiac stent, endarterectomy -: thyroidectomy -: cholecystectomy -: appendectomy -: tubal ligation -: bladder suspension -: knee SX -: hysterectomy Psychosocial/ Personal History: Patient is resident of [facility] - Family History Brother Medical History: Heart disease, Hypertension, Diabetes, Other (see notes) Notes: parkinsons Sister Medical History: Hypertension, GI disease, Other (see notes) Notes: diverticulosis - Social History Smoking Status: Unknown if ever smoked Alcohol use: No CD- Drugs: No Caffeine use: Yes Place of Residence: [facility] Review of Systems is unable to be obtained Physical Examination Temp Pulse Resp BP Pulse Ox 99.4 F 107 H 18 176/87 H 97 08/21/21 12:00 08/21/21 12:00 08/21/21 12:00 08/21/21 12:00 08/21/21 12:00 General: Demented HEENT: Atraumatic, Normocephalic Neck: Supple Respiratory: Clear to auscultation bilaterally, Normal air movement Capillary refill: <2 Seconds Gastrointestinal: Normal bowel sounds, Soft and benign Musculoskeletal: No clubbing, No swelling Laboratory Data (last 24 hrs) 08/21/21 03:20: PT Cancelled, INR Cancelled 08/21/21 03:20: WBC Cancelled, Hgb Cancelled, Hct Cancelled, Plt Count Cancelled 08/21/21 03:20: Sodium Cancelled, Potassium Cancelled, BUN Cancelled, Creatinine Cancelled, Glucose Cancelled, Magnesium Cancelled, Total Bilirubin Cancelled, AST Cancelled, ALT Cancelled, Alkaline Phosphatase Cancelled 08/21/21 03:11: PT 13.4 H, INR 1.21 08/21/21 03:11: WBC 14.4 H, Hgb 10.4 L, Hct 33.2 L, Plt Count 1085 H* 08/21/21 03:11: Sodium 144, Potassium 3.1 L, BUN 25 H, Creatinine 0.76, Glucose 200 H, Magnesium 2.1, Total Bilirubin 0.2, AST 11 L, ALT 16, Alkaline Phosphatase 125 H Conclusions/Impression: Antibiotics: Meropenem: 4/1current Sepsis of unknown origin Likely related to UTI. Urinalysis with 3+ leukoesterase. Urine and blood culture pending -Continue IV meropenem. -Patient has chronic indwelling Zamarripa catheter. Metabolic encephalopathy related to severe sepsis Continue medical management, neurology consulted Medical management per primary team Plan of care discussed Dr. Eastman Thank you for consultation
--- NOTE | 2021-08-21 14:37 | RAD REPORT ---
EXAM DESCRIPTION: CT - Head C Spine Mpr Wo Con - 08/21/2021 7:03 am CLINICAL HISTORY: FEVER COMPARISON: None. TECHNIQUE: CT HEAD AND CERVICAL SPINE WITHOUT CONTRAST on 08/21/2021 3:20 AM CDT This exam was performed according to our departmental dose-optimization program, which includes autom ated exposure control, adjustment of the mA and/or kV according to patient size and/or use of iterati ve reconstruction technique. FINDINGS: Brain: There is no acute hemorrhage, mass effect or midline shift. There is encephalomalac ia in the left parietal lobe as well as the right frontal and parietal lobes. There is no hydrocephal us. There is no significant volume loss for age. The calvarium is intact. Orbits and globes are unremarkable. The paranasal sinuses are clear. Mastoid air cells are clear. Cervical Spine: There is no acute fracture. There is grade 1 anterolisthesis of C4 on C5. There is mi ld mid cervical facet arthritis bilaterally. There is moderate severe narrowing of the C5-6 and C6-7 discs. Vertebral body heights are preserved. Soft tissues are unremarkable. IMPRESSION: No acute postraumatic findings. Electronically signed by: Luis Barros MD 08/21/2021 6:00 AM CDT Due to temporary technical issues with the PACS/Fluency reporting system, reports are being signed by the in house radiologist without review as a courtesy to ensure prompt reporting. The interpreting r adiologist is fully responsible for the content of the report.
[2021-08-21] MEDS ORDERED: FUROSEMIDE 20 MG/ 2ML VIAL IV SCH (17:00)
[2021-08-21] MEDS ORDERED: NA CHLORIDE 0.9% 100 ML IV ONE (19:05)
[2021-08-21] MEDS ORDERED: FUROSEMIDE 20 MG/ 2ML VIAL ONE (19:07)
[2021-08-21] MEDS ORDERED: LABETALOL 20 MG/4ML SYRINGE IV PRN (19:40)
[2021-08-21] MEDS ORDERED: D50W 25 GM/50 ML SYRINGE IV PRN (19:46)
[2021-08-21] MEDS ORDERED: INSULIN -REGULAR HUMAN 50 UNIT/0.5 ML ML SQ SCH (21:00)
[2021-08-21] MEDS ORDERED: NA CHLORIDE 0.9% 50 ML ONE (22:45)
[2021-08-22 02:26] VITALS: BP 169/65; TEMP 99.5
[2021-08-22 05:32] VITALS: O2SAT 100
--- NOTE | 2021-08-24 11:22 | EKG ---
Test Date: 2021-08-21 Test Time: 03:24:22 Mold Changer: MEASUREMENT RESULTS: Intervals: Rate: 112 LA: 126 QRSD: 76 QT: 366 QTc: 499 [place]: P: 65 LA: 126 QRS: 38 T: 135 INTERPRETIVE STATEMENTS: Sinus tachycardia with premature supraventricular complexes ST & T wave abnormality, consider inferior ischemia Abnormal ECG Compared to ECG 06/07/2021 06:20:44 Atrial premature complex(es) now present Possible ischemia now present Sinus rhythm no longer present Prolonged QT interval no longer present ST (T wave) deviation still present Electronically Signed On 08-24-21 11:13:47 CDT by Randall Keita
== END 2021-08-22 03:00 | disposition short-term general hospital (02) | DRG 871 ==
LOC: ER 02:42 → ERHOLD 07:14
PROVIDERS: ADMIT Hospitalist; ATTEND Hospitalist
DX: A41.81 Sepsis due to Enterococcus (principal); G92.9 Unspecified toxic encephalopathy; T83.511A Infection and inflammatory reaction due to indwelling urethral catheter, initial encounter; E44.0 Moderate protein-calorie malnutrition; N30.00 Acute cystitis without hematuria; R65.20 Severe sepsis without septic shock; E78.5 Hyperlipidemia, unspecified; E87.6 Hypokalemia; I12.9 Hypertensive chronic kidney disease with stage 1 through stage 4 chronic kidney disease, or unspecified chronic kidney disease; N18.9 Chronic kidney disease, unspecified; E11.22 Type 2 diabetes mellitus with diabetic chronic kidney disease; E11.51 Type 2 diabetes mellitus with diabetic peripheral angiopathy without gangrene; I25.10 Atherosclerotic heart disease of native coronary artery without angina pectoris; E03.9 Hypothyroidism, unspecified; D63.8 Anemia in other chronic diseases classified elsewhere; D75.839 Thrombocytosis, unspecified; D50.9 Iron deficiency anemia, unspecified; F03.90 Unspecified dementia, unspecified severity, without behavioral disturbance, psychotic disturbance, mood disturbance, and anxiety; R56.9 Unspecified convulsions; Z66 Do not resuscitate; Z68.38 Body mass index [BMI] 38.0-38.9, adult; Z88.5 Allergy status to narcotic agent; Z74.01 Bed confinement status; Z90.49 Acquired absence of other specified parts of digestive tract; Z90.710 Acquired absence of both cervix and uterus; Z98.51 Tubal ligation status; Z79.02 Long term (current) use of antithrombotics/antiplatelets; Z79.890 Hormone replacement therapy; Z79.899 Other long term (current) drug therapy; Z86.73 Personal history of transient ischemic attack (TIA), and cerebral infarction without residual deficits; Z20.822 Contact with and (suspected) exposure to COVID-19
CPT/HCPCS: 0240U; 36415; 51702; 70450; 71045; 72125; 80048; 80076; 81003; 83605; 83735; 83880; 84145; 84484; 85025; 85610; 87040; 87077; 87186; 87205; 93005; 99285; J0360; J1650; J1940; J1953; J2185; J3480; J7030

== ENCOUNTER 2022-06-16 08:46 | Observation (INO) | payer OTHER ==
--- OUTSIDE RECORDS SUMMARY | 2022-06-16 08:59 | XMS REPORT | Continuity of Care Document ---
:1950 Author Organization [facility] t Address [address] [place] [address] Care Team Providers Name Role Phone JEREMÍAS BLANTON Primary Care Physician Unavailable David Richardson Attending Clinician Unavailable Josefa De La Cruz Attending Clinician Unavailable Nick Pike Attending Clinician Unavailable Bonnie Chanel MD Attending Clinician Nick Almeida MD Attending Clinician Ted Parra MD Attending Clinician TED PARRA Attending Clinician Unavailable BONNIE CHANEL Attending Clinician Unavailable Ramon Zhang Attending Clinician Rene Camraena Attending Clinician Unavailable ESSIE Attending Clinician Unavailable Jeremías Blanton Attending Clinician [phone] Kanwal Carrillo Attending Clinician Unavailable Lab, Adc Fam Pob I Attending Clinician Unavailable KRAIG LIANG Attending Clinician Unavailable Doctor Unassigned, [place] Attending Clinician Unavailable Chandu Vergara MD Attending Clinician ERVIN ORTIZ Attending Clinician Unavailable Josefa De La Cruz Admitting Clinician Unavailable Kanwal Carrillo Admitting Clinician Unavailable BONNIE CHANEL Admitting Clinician Unavailable Rene Camarena Admitting Clinician Unavailable ESSIE Admitting Clinician Unavailable ERVIN ORTIZ Admitting Clinician Unavailable Payers Payer Name Policy Type Policy Number Effective Date Expiration Date Diaz bernstein CARE IMPROVEMENT [id number] 2017 PLUS 00:00:00 [employer]ARP MEDICARE 53 [id number] 2020 Common ADVANTAGE WELLMED 00:00:00 Spirit [facility] MEDICARE NOVITAS MB [id number] [facility] MEDICARE NOVITAS MB [id number] [facility] MEDICARE NOVITAS MB [id number] [facility] MEDICARE NOVITAS MB [id number] [facility] MEDICARE NOVITAS MB [id number] [facility] MEDICARE NOVITAS MB [id number] [facility] MEDICARE NOVITAS MB [id number] [facility] MEDICARE NOVITAS MB [id number] [facility] [place] [id number] Common MEDICARE Spirit - [facility] SOLUTIONS [facility] [id number] [facility] [id number] 2018 MEDICARE GOLD 00:00:00 Problems Condition Condition Condition Status Onset Resolution Last Treating Co mments Source Name Details Category Date Date Treatment Clinician Date Severe Severe Disease Active [facility] sepsis sepsis 08-22 [facility] Sepsis Sepsis Disease Active [facility] without without 08-22 Lu acute acute 00:00: Medical organ organ 00 Center dysfunctio dysfunctio n n Allergic Allergic Problem Active 2021-0 Sween y rhinitis Rhinitis 3-05 Commun i 00:00: ty 00 [facility] 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 00:00: ty disorder Disorder 00 Hospit a in partial in Partial l remission Remission Clin ics co-occurre Co-occurre nt with nt with anxiety Anxiety History of History of Problem Active 2019-05 S weeny diverticul Diverticul 2-01 Co mmuni itis itis 00:00: ty 00 [facility] Iron Iron Problem Active 2019-05 [place] deficiency Deficiency 0-08 Co mmuni 00:00: ty 00 [facility] Prediabete Prediabete Problem Active S weeny s s 02-17 Communi 00:00: ty 00 [facility] Paroxysmal Paroxysmal Problem Active S weeny supraventr Supraventr 8- Co mmuni icular icular 00:00: ty tachycardi Tachycardi 00 Ho spita a a l Clinics Premature Premature Problem Active Swe jessica atrial Atrial 01-08 Communi contractio Contractio 00:00: ty n n 00 [facility] Multiple Multiple Problem Active Sween y premature Premature 8- Comm uni ventricula Ventricula 00:00: ty r r 00 [facility] complexes Complexes l Clinics Peripheral Peripheral Problem Active S weeny edema Edema - Communi 00:00: ty 00 [facility] Carotid Carotid Problem Active [place] bruit Bruit - Communi 00:00: ty 00 [facility] History of History of Problem Active S weeny placement Placement 8- Comm uni of stent of Stent 00:00: ty for for 00 [facility] coronary Coronary l artery Artery Clinics disease Disease Family Family Problem Active [place] history of History of 8-19 Co mmuni Cardiovasc Cardiovasc 00:00: ty renan urrutia 00 [facility] disease Disease l Clinics Intermitte Intermitte Problem Active S weeny nt nt 8- Communi claudicati Claudicati 00:00: ty on of [facility] bilateral Bilateral l lower Lower Clinics limbs Limbs co-occurre Co-occurre nt and due nt and Due to to atheroscle Atheroscle rosis rosis Pain in Pain in Problem Active [place] right hip Right Hip 7-28 Comm uni joint Joint 00:00: ty 00 Hospita Clinics Dizziness Dizziness Problem Active Swe jessica 4-06 [facility]i 00:00: [facility] Hyperchole Hyperchole Problem Active S weeny sterolemia sterolemia -21 Co m[facility]i 00:00: ty [facility] Anxiety Anxiety Problem Active [place] disorder Disorder - Commun i 00:00: ty [facility] Chronic Chronic Problem Active [place] depression Depression 06-12 Co mmuni 00:00: ty 00 [facility] Hypertensi Hypertensi Problem Active S weeny ve ve 06-12 Communi disorder Disorder 00:00: ty 00 [facility] Carotid Carotid Problem Active [place] artery Artery 06-12 Communi obstructio Obstructio 00:00: ty n n 00 [facility] Arthritis Arthritis Problem Active Swe jessica 1-21 Communi 00:00: ty 00 [facility] Deformity Deformity Problem Active Swe jessica of of 06-12 Communi cervical Cervical 00:00: ty vertebra Vertebra 00 Hospit a Clinics Chronic Chronic Problem Active [place] insomnia Insomnia 06-12 Commun i 00:00: ty 00 [facility] Clinics Anemia Anemia Disease Active Methodi 9 st 00:00: Hospita 00 l Diverticul Diverticul Disease Active C [facility] itis of itis of 8-20 [facility] large large 00:00: Medical intestine intestine 00 Cent er without without bleeding bleeding Dizziness Dizziness Condition Active 2020-04-04 Memoria and and 09-12 23:48:43 l giddiness giddiness 00:00: Herm anirudh Active 00 09/12/2006 04/04/2020 [facility] Health Hyperlipid Hyperlipi Problem Active 2021-12-28 Memoria emia demia 02:47:46 l (disorder) (disorder) He rmann Active Problem 12/28/2021 [facility] Post-opera Post-oper Problem Active 2021-12-28 Memoria tive ative 02:47:46 l hypothyroi hypothyroi He rmann dism dism (disorder) (disorder) Active Problem 12/28/2021 [facility] Post-opera Post-oper Problem Active 2021-12-28 Memoria tive ative 02:47:46 l hypothyroi hypothyroi Jamison rmann dism dism (disorder) (disorder) Active Problem 12/28/2021 [facility] 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 02:47:46 l of brain of brain Murray n (disorder) (disorder) Active Problem 12/28/2021 [facility] 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 02:47:46 l of brain of brain Murray n (disorder) (disorder) Active Problem 12/28/2021 [facility] Cerebrovas Problem Active 2021-12-28 M emoria cular Cerebrovas 02:47:46 l accident cular [place] (disorder) accident (disorder) Active Problem 12/28/2021 [facility] Delirium Delirium Problem Active 2021-12-28 Memoria (disorder) (disorder) 02:47:46 l Active [place] Problem 12/28/2021 [facility] Right Right Diagnosis Active 2019-06-18 Mem oria shoulder shoulder 23:41:53 l pain, pain, [place] unspecifie unspecifie d d chronicity chronicity Active 06/18/2019 [facility] Health Exposure Exposure Diagnosis Active 2020-04-04 Memoria to to 23:48:43 l 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 deficiency Medica l anemia Center type [id number] Constipati Problem Active Com mon on, Spirit unspecifie - [facility] type [facility] [id number] GERD Problem Active Common without Spirit esophagiti - CHI s [facility] [id number] Carotid Problem Active Comm on stenosis, Spirit bilateral - [facility] [id number] Atheroscle Problem Active C ommon rosis of [facility] [place] - CHI artery of [facility] extremitie Medica l s with Center intermitte nt claudicati on [id number] Osteoarthr Problem Active Co mmon itis of [facility] lumbar - [facility] itis complicati on status [id number] Osteoarthr Problem Active Co mmon itis of Spirit cervical - [facility], [facility] osteoarthr Center itis complicati on status Sleep Sleep Problem Active Common disorder disorder [facility] Stage 3b Stage 3b Problem Active Commo n chronic chronic Spirit kidney kidney - CHI disease disease [facility] Cervical Cervical Problem Active Commo n radiculopa radiculopa Sp maury thy thy [facility] Chronic Chronic Problem Active Common pain pain [facility] Urine Urine Problem Active Common incontinen incontinen Sp maury ce ce [facility] [id number] Depression Problem Active Co mmon with [facility] anxiety [facility] Amnesia Memory Problem Active Common disturbanc [facility] e [facility] Atheroscle Arterioscl Problem Active C ommon rotic erosis of Spirit heart coronary - CHI disease of artery [facility] coronary Medical artery Center without angina pectoris Overactive Overactive Problem [facility] bladder bladder [facility] Hypothyroi Hypothyroi Problem Active C ommon dism dism [facility] [id number] Current Problem Active Common moderate Spirit episode of - CHI major [facility] Medical without Center prior episode Essential Benign Problem Active Common hypertensi essential Spi rit on HTN [facility] [id number] Hyperlipid Problem Active Co mmon emia, Spirit mixed [facility] [id number] +5th digit Problem Active Co mmon eff Spirit 02/21/20*Ch - CHI ronic kidney [facility] disease, Medical stage 3 Center (moderate) [id number] Lumbago Problem Active Commo n with Spirit sciatica, - CHI left side [facility] [id number] Coronary Problem Active Com mon 107 artery Spirit disease - CHI involving [facility] coronary Medical artery of [place] heart, angina presence unspecifie d [id number] Anxiety Problem Active Common [facility] Allergies, Adverse Reactions, Alerts Allergy Allergy Status Severity Reaction(s) Onset Inactive Treating Comm ents Source Name Type Date Date Clinician Paxil Allergy Active Moderate Nausea [place] to to severe 2 Communi substanc 00:00: ty e 00 Hospita Clinics Codeine Propensi Active Itching, CHI S t ty to Nausea Only 01-09 [facility] adverse 00:00: Medical reaction 00 [place] s CODEINE Allergy Active Med Itching [facility] 01-09 00:00: 00 CIPROFLO DRUG Active N/V 0 Univers XACIN INGREDI 12-26 ity of 00:00: [address] LEVOFLOX DRUG Active N/V Univers ACIN INGREDI 12-26 ity of 00:00: [address] Ciproflo Drug Active Nausea And [facility] xacin Allergy Vomiting 12-26 [facility] 00:00: [address] Levoflox Drug Active Nausea And [facility] acin Allergy Vomiting 12-26 [facility] 00:[facility]: [address] Ciproflo Ciproflo Active Nausea Memori a xacin xacin and/or 8-06 l Vomiting 00:00: [place] Levoflox Levoflox Active Nausea Memori a acin acin and/or 8-06 l Vomiting 00:00: [place] CIPROFLO Allergy Active N\\T\\V [facility] XACIN 12-26 00:00: 00 LEVOFLOX Allergy Active N\\T\\V 0 [facility] ACIN 12-26 00:00: 00 Codeine Propensi Active Methodi ty to 11-15 st adverse 00:00: Hospita reaction 00 l s to drug codeine DA Active SV [facility] 01-15 00:00: [address] codeine DA Active SV unknown [facility] 01-15 00:00: [address] CODEINE DRUG Active Med NAUSEA ONLY Univ ers INGREDI 10-25 ity of 00:00: [address] codeine codeine Active Memoria l Anton 9041 Drug Active Unknown Common allergy [facility] levothyr levothyr Active Unknown Commo n oxine oxine Spirit - [facility] Family History Family Member Diagnosis Comments Start Date Stop Date Source Natural brother Diabetes [facility] Natural brother Heart disease [facility] Social History Social Habit Start Date Stop Date Quantity Comments Source History of Common Spirit - Tobacco Use [facility] Alcohol intake 2021-08-22 2021-08-22 Current [facility] St Sathish es 00:00:00 00:00:00 non-drinker of Medical Ce nter alcohol (finding) Social History 2021-06-24 2021-06-24 [facility]ly [facility] 18:12:44 18:12:44 Tobacco use and 2017-12-26 2017-12-26 Never used CHALINO Coleman kediaz exposure 00:00:00 00:00:00 [facility] Sex Assigned At [birth year] CHALINO Coleman kes 00:00:00 00:00:00 [facility] Center Smoking Status Start Date Stop Date Source Former Smoker [facility] Never Smoker [facility] Medications Ordered Filled Start Stop Current Ordering Indication Dosage Frequency Signature Comments Components Source Medication Medication Date Date Medication? Clinician (SIG) Name Name ascorbic 2022- No 500mg QD Take 1 [facility]I S t acid, 08-28 tablet [facility] vitamin C, 00:00: 23:59 (500 mg Med ical (VITAMIN C) 00 :00 total) by [facility] ter 500 MG mouth tablet daily. ferrous 2022- No 325mg QD Take [address] sulfate 325 08-28 tablet [facility] (65 FE) MG 00:00: 23:59 (325 mg Med ical tablet 00 :00 total) by Center mouth daily. magnesium 2022- No 400mg QD Take [address] oxide 08-28-08 tablet [facility] (MAG-OX) 00:00: 23:59 (400 mg Medic al 400 mg 00 :00 total) by Center (241.3 mg mouth magnesium) daily. tablet megestroL 2022- No 800mg QD Take [address] (MEGACE) 08-28-08 mLs (800 [facility] 400 mg/10 00:00: 23:59 mg total) Me dical mL (10 mL) 00 :00 [facility]. potassium 0 2022- No 20meq QD Take [address] chloride SA 08-28-08 tablet (20 L ukes (K-DUR,KLOR 00:00: 23:59 mEq total) Medical -CON-M) 20 00 :00 by mouth Cente r MEQ tablet daily. vancomycin 0 2021- No 1250mg Q24H Inject [facility] (VANCOCIN) 08-28-16 1,250 mg Luke s 1250 mg in 00:00: 23:59 intravenou Medical NS 250 mL 00 :00 sly daily Cente r (V2B) IVPB for 8 days. rosuvastati Yes 40mg QD Take [address] n (CRESTOR) 4-07 by mouth Luke s 20 MG 16:22: nightly . Medical tablet 49 Center irbesartan Yes 300mg QD Take [address] (AVAPRO) 4-07 mg by [facility] 300 MG 16:22: mouth Medical tablet 49 daily . Center clopidogrel 0 Yes 75mg QD Take [address] (PLAVIX) 75 4-07 by mouth Luke s mg tablet 16:22: daily. Medica l 49 Center levothyroxi Yes 100ug Take [address] ne 4-07 mcg by [facility]ukes (SYNTHROID, 16:22: mouth Medic al LEVOTHROID) 49 Every Center 100 MCG morning on tablet an empty stomach. metoprolol Yes 50mg Q.5D Take [address] (LOPRESSOR) 4-07 by mouth 2 Mary kes 50 MG 16:22: (two) Medical tablet 49 times Center daily. aspirin 81 0 Yes 81mg QD Take [address] MG EC 4-07 by mouth [facility] tablet 16:22: daily. Medical 49 Center cloNIDine 0 Yes .1mg Q.[id number] Take 0.[address] HCL 4-07 [id number] mg by [facility] (CATAPRES) 16:22: 3D mouth 3 Medi emma 0.1 MG 49 (three) Center tablet times daily. NIFEDIPINE 2021-0 202- No QD Take by [facility] ORAL 4-07 04-07 mouth [facility]ukes 15:00: 00:00 daily. Medical 54 :00 [place] hydrALAZINE 0 2021- No 100mg Take [address] (APRESOLINE -11 24- tablet [facility] ) 100 MG 00:00: 23:59 (100 mg Medic al tablet 00 :00 total) by Center mouth every 8 (eight) hours for 30 days. pantoprazol 2021-0 2021- No 40mg Q.5D Take [address] e 08-27 tablet (40 [facility] (PROTONIX) 00:00: 23:59 mg total) M edical 40 MG 00 :00 by mouth 2 Center tablet (two) times daily for 30 days. levETIRAcet 2021-0 2021- No 500mg Q.5D Take [address] am (KEPPRA) 08-27 tablet [facility] 500 MG 00:00: 23:59 (500 mg Medical tablet 00 :00 total) by Center mouth 2 (two) times daily for 30 days. HYDROcodone 2021-0 2021- No 1{tbl} Take [address] -acetaminop 08-2717 tablet by antoinette ramos (NORCO 00:00: 23:59 mouth Medic al 5-325) 00 :00 every 6 Center 5-325 mg (six) per tablet hours as needed for up to 10 days. Max Daily Amount: 4 tablets NIFEDIPINE Yes QD Take by [facility] ORAL 4-03 mouth [facility] 19:09: daily. Medical 37 [place] cloNIDine 0 Yes .1mg Q.[id number] Take 0.[address] HCL 4-03 [id number] mg by [facility] (CATAPRES) 19:09: 3D mouth 3 Medi emma 0.1 MG 37 (three) Center tablet times daily. rosuvastati Yes 40mg QD Take [address] n (CRESTOR) 4-02 by mouth Luke s 20 MG 04:51: nightly . Medical tablet 13 [place] irbesartan Yes 300mg QD Take [address] (AVAPRO) 4-02 mg by [facility] 300 MG 04:51: mouth Medical tablet 13 daily . [place] clopidogrel Yes 75mg QD Take [address] (PLAVIX) 75 4-02 by mouth Luke s mg tablet 04:51: daily. Medica l 13 [place] levothyroxi Yes 100ug Take [address] ne 4-02 mcg by [facility]ukes (SYNTHROID, 04:51: mouth Medic al LEVOTHROID) 13 Every Center 100 MCG morning on tablet an empty stomach. metoprolol Yes 50mg Q.5D Take [address] (LOPRESSOR) 4-02 by mouth 2 Mary kes 50 MG 04:51: (two) Medical tablet 13 times Center daily. aspirin 81 Yes 81mg QD Take [address] MG EC 4-02 by mouth [facility]ukes tablet 04:51: daily. Medical 13 Center venlafaxine 2021- No 150mg QD Take [address] (EFFEXOR-XR 4-02 04-02 mg by [facility] ) 150 MG 24 04:37: 00:00 mouth Medi emma hr capsule 24 :00 nightly . Cent er venlafaxine 2021- No 150mg QD Take [address] (EFFEXOR-XR 4-02 04-02 mg by [facility]ukes ) 150 MG 24 04:37: 00:00 mouth Medi emma hr capsule 24 :00 nightly . Cent er hydrALAZINE 2021- No 50mg Q.22479131 Take [address] (APRESOLINE 4-02 04-02 [id number] by mouth 3 [facility]ukes ) 50 MG 04:36: 00:00 3D (three) Medica l tablet 21 :00 times Center daily. hydrALAZINE 2021- No 50mg Q.[id number] Take [address] (APRESOLINE 4-02 04-02 [id number] by mouth 3 [facility] ) 50 MG 04:36: 00:00 3D (three) Medica l tablet 21 :00 times Center daily. amLODIPine 2021- No 10mg QD Take [address] (NORVASC) 4- 04-02 by mouth [facility]ukes 10 MG 04:35: 00:00 nightly . Medica l tablet 27 :00 Center amLODIPine 2021- No 10mg QD Take [address] (NORVASC) 4- 04-02 by mouth [facility] 10 MG 04:35: 00:00 nightly . Medica l tablet 27 :00 Center Sertraline Yes 50 mg = 1 Me moria 50 MG Oral 2-02 tab, PO, l Tablet 19:01: Daily, 0 [place] [Zoloft] 00 Refill(s) Sertraline Yes 50 mg = 1 Me moria 50 MG Oral 2-02 tab, PO, l Tablet 19:01: Daily, 0 Anton [Zoloft] 00 Refill(s) Sertraline Yes 50 mg = 1 Me moria 50 MG Oral 2-02 tab, PO, l Tablet 19:01: Daily, 0 [place] [Zoloft] 00 Refill(s) Sertraline Yes 50 mg = 1 Me moria 50 MG Oral 2-02 tab, PO, l Tablet 19:01: Daily, 0 Anton [Zoloft] 00 Refill(s) Sertraline Yes 50 mg = 1 Me moria 50 MG Oral 2-02 tab, PO, l Tablet 19:01: Daily, 0 [place] [Zoloft] 00 Refill(s) 24 HR Yes = 1 patch, Memori a rivastigmin 2-02 TOP, l e 0.192 19:00: Daily, [place] MG/HR 00 apply to Transdermal area that Patch is [Exelon] clean/dry/ hairless & free of redness/ir ritation/b urns/cuts, # 30 patch, 0 Refill(s) 24 HR Yes = 1 patch, Memori a rivastigmin 2-02 TOP, l e 0.192 19:00: Daily, [place] MG/HR 00 apply to Transdermal area that Patch is [Exelon] clean/dry/ hairless & free of redness/ir ritation/b urns/cuts, # 30 patch, 0 Refill(s) 24 HR Yes = 1 patch, Memori a rivastigmin 2-02 TOP, l e 0.192 19:00: Daily, [place] MG/HR 00 apply to Transdermal area that Patch is [Exelon] clean/dry/ hairless & free of redness/ir ritation/b urns/cuts, # 30 patch, 0 Refill(s) 24 HR 2022-0 Yes = 1 patch, Memori a rivastigmin 2-02 TOP, l e 0.192 19:00: Daily, Anton MG/HR 00 apply to Transdermal area that Patch is [Exelon] clean/dry/ hairless & free of redness/ir ritation/b urns/cuts, # 30 patch, 0 Refill(s) 24 HR Yes = 1 patch, Memori a rivastigmin 2-02 TOP, l e 0.192 19:00: Daily, [place] MG/HR 00 apply to Transdermal area that Patch is [Exelon] clean/dry/ hairless & free of redness/ir ritation/b urns/cuts, # 30 patch, 0 Refill(s) carvedilol Yes 6.25 mg = Me moria 6.25 mg 2-02 1 tab, PO, l oral tablet 18:59: BID, # 180 Anton 00 tab, 1 Refill(s) Levetiracet Yes 500 mg = 1 Memoria am 500 MG 2-02 tab, PO, l Oral Tablet 18:59: BID, # 60 H ermann [Keppra] 00 tab, 0 Refill(s) carvedilol Yes 6.25 mg = Me moria 6.25 mg 2-02 1 tab, PO, l oral tablet 18:59: BID, # 180 [place] 00 tab, 1 Refill(s) Levetiracet Yes 500 mg = 1 Memoria am 500 MG 2-02 tab, PO, l Oral Tablet 18:59: BID, # 60 H ermann [Keppra] 00 tab, 0 Refill(s) carvedilol Yes 6.25 mg = Me moria 6.25 mg 2-02 1 tab, PO, l oral tablet 18:59: BID, # 180 [place] 00 tab, 1 Refill(s) Levetiracet Yes 500 mg = 1 Memoria am 500 MG 2-02 tab, PO, l Oral Tablet 18:59: BID, # 60 H ermann [Keppra] 00 tab, 0 Refill(s) carvedilol Yes 6.25 mg = Me moria 6.25 mg 2-02 1 tab, PO, l oral tablet 18:59: BID, # 180 Anton 00 tab, 1 Refill(s) Levetiracet Yes 500 mg = 1 Memoria am 500 MG 2-02 tab, PO, l Oral Tablet 18:59: BID, # 60 H ermann [Keppra] 00 tab, 0 Refill(s) carvedilol Yes 6.25 mg = Me moria 6.25 mg 202 1 tab, PO, l oral tablet 18:59: BID, # 180 Anton 00 tab, 1 Refill(s) Levetiracet Yes 500 mg = 1 Memoria am 500 MG 2-02 tab, PO, l Oral Tablet 18:59: BID, # 60 H ermann [Keppra] 00 tab, 0 Refill(s) baclofen Yes 10 mg = 1 M emoria mg oral 2-02 tab, PO, l tablet 18:57: TID, # 90 [place] n 00 tab, 0 Refill(s) atorvastati Yes 80 mg = 1 M emoria n 80 mg 2-02 tab, PO, l oral tablet 18:57: Bedtime, # [place] 00 90 tab, 0 Refill(s) baclofen Yes 10 mg = 1 M emoria mg oral 2-02 tab, PO, l tablet 18:57: TID, # 90 [place] n 00 tab, 0 Refill(s) atorvastati Yes 80 mg = 1 M emoria n 80 mg 2-02 tab, PO, l oral tablet 18:57: Bedtime, # [place] 00 90 tab, 0 Refill(s) baclofen 10 Yes 10 mg = 1 M emoria mg oral 2-02 tab, PO, l tablet 18:57: TID, # 90 Murray n 00 tab, 0 Refill(s) atorvastati Yes 80 mg = 1 M emoria n 80 mg 2-02 tab, PO, l oral tablet 18:57: Bedtime, # Anton 00 90 tab, 0 Refill(s) baclofen 10 Yes 10 mg = 1 M emoria mg oral 2-02 tab, PO, l tablet 18:57: TID, # 90 [place] n 00 tab, 0 Refill(s) atorvastati Yes 80 mg = 1 M emoria n 80 mg 2-02 tab, PO, l oral tablet 18:57: Bedtime, # [place] 00 90 tab, 0 Refill(s) baclofen 10 Yes 10 mg = 1 M emoria mg oral 2-02 tab, PO, l tablet 18:57: TID, # 90 Murray n 00 tab, 0 Refill(s) atorvastati Yes 80 mg = 1 M emoria n 80 mg 2-02 tab, PO, l oral tablet 18:57: Bedtime, # Anton 00 90 tab, 0 Refill(s) NIFEdipine 2020-05 Yes 30 mg = 1 [...] 0-13 Refill(s) l de 0.2 MG 18:16: [place] Oral Tablet 00 Clonidine 2020-05 Yes 0 Memoria Hydrochlori 0-13 Refill(s) l de 0.2 MG 18:16: [place] Oral Tablet 00 Clonidine 2020-05 Yes 0 Memoria Hydrochlori 0-13 Refill(s) l de 0.2 MG 18:16: [place] Oral Tablet 00 Clonidine 2020-05 Yes 0 Memoria Hydrochlori 0-13 Refill(s) l de 0.2 MG 18:16: Anton Oral Tablet 00 Clonidine 2020-05 Yes 0 Memoria Hydrochlori 0-13 Refill(s) l de 0.2 MG 18:16: [place] Oral Tablet 00 Omeprazole Omeprazole 0 No QD Omeprazole 40 MG 40 MG 8- 40 MG 00:00: 00 Linzess 72 Linzess 72 2020- No QD Linzess 72 MCG MCG 8- 11-23 MCG 00:00: 00:00 00 :00 Trelegy Trelegy 2020- No 1{puff} QD Trelegy Ellipta Ellipta 7-13 10-11 Ellipta 100-62.5-25 100-62.5-25 00:00: 00:00 100-62.5-2 MCG/INH MCG/INH 00 :00 5 MCG/INH Trelegy Trelegy 2020- No 1{puff} QD Trelegy Ellipta Ellipta 7-13 10-11 Ellipta 100-62.5-25 100-62.5-25 00:00: 00:00 100-62.5-2 MCG/INH MCG/INH 00 :00 5 MCG/INH Trelegy Trelegy 2020-0 2020- No 1{puff} QD Trelegy Ellipta Ellipta 7-13 10-11 Ellipta 100-62.5-25 100-62.5-25 00:00: 00:00 100-62.5-2 MCG/INH MCG/INH 00 :00 5 MCG/INH Trelegy Trelegy 2020-0 2020- No 1{puff} QD Trelegy Ellipta Ellipta 7-13 10-11 Ellipta 100-62.5-25 100-62.5-25 00:00: 00:00 100-62.5-2 MCG/INH MCG/INH 00 :00 5 MCG/INH Trelegy Trelegy 0 2020- No 1{puff} QD Trelegy Ellipta Ellipta 7-13 10-11 Ellipta 100-62.5-25 100-62.5-25 00:00: 00:00 100-62.5-2 MCG/INH MCG/INH 00 :00 5 MCG/INH NORVASC 5 2019-05 Yes q daily [facility] MG ORAL TAB 1-13 l 23:48: Anton Ingram CELEXA 20 2019-05 Yes q daily [facility] MG ORAL TAB 1-13 l 23:48: Atnon Ingram MOTRIN 800 2019-05 Yes 4 tab [facility] a MG ORAL TAB 1-13 daily l 23:48: Anton 43 TRANXENE 2019-05 Yes 1/2 tab [facility]ori a T-TAB 3.75 1-13 daily l MG ORAL TAB 23:48: Murray Ingram METOPROLOL 2019-05 Yes daily [facility]ori a TARTRATE 50 1-13 l MG ORAL TAB 23:48: Murray gee 43 CLORAZEPATE 2019-05 Yes prn [facility]ori a DIPOTASSIUM 1-13 l 3.75 MG 23:48: Anton ORAL TAB 43 clopidogrel 2019-05 Yes Take 75 mg [facility] 75 mg 1-13 by mouth. l tablet 23:48: Anton 43 hydrALAZINE 2019-05 Yes Take 50 mg [facility] 50 mg 1-13 by mouth. l tablet 23:48: Anton 43 irbesartan 2019-05 Yes Take 300 Mem oria 300 mg 1-13 mg by l tablet 23:48: mouth. Anton 43 levothyroxi 2019-05 Yes Take 100 Me moria ne 100 mcg 1-13 mcg by l tablet 23:48: mouth. Anton 43 rosuvastati 2019-05 Yes Take 10 mg Memoria n 20 mg 1-13 by mouth. l tablet 23:48: Anton 43 venlafaxine 2019-05 Yes Take 150 Me moria XR 150 mg 1-13 mg by l 24 hr 23:48: mouth. Anton sandoval 43 ASPIRIN 81 2019-05 Yes q daily Rebel wilfrido MG ORAL 1-13 l CHEW 23:48: Anton Ingram TOPROL XL 2019-05 Yes q daily [facility] 50 MG ORAL 1-13 l TB24 23:48: Anton Ingram LIPITOR 80 2019-05 Yes q daily Rebel wilfrido MG ORAL TAB 1-13 l 23:48: Anton Ingram NORVASC 5 2019-05 Yes q daily [facility] MG ORAL TAB 1-13 l 23:48: Anton Ingram CELEXA 20 2019-05 Yes q daily [facility] MG ORAL TAB 1-13 l 23:48: Anton 43 MOTRIN 800 2019-05 Yes 4 tab [facility] a MG ORAL TAB 1-13 daily l 23:48: Anton 43 TRANXENE 2019-05 Yes 1/2 tab [facility] a T-TAB 3.75 1-13 daily l MG ORAL TAB 23:48: Murray gee 43 METOPROLOL 2019-05 Yes daily [facility] a TARTRATE 50 1-13 l MG ORAL TAB 23:48: Murray gee 43 CLORAZEPATE 2019-05 Yes prn Memori a DIPOTASSIUM 1-13 l 3.75 MG 23:48: Anton ORAL TAB 43 clopidogrel 2019-05 Yes Take 75 mg [facility] 75 mg 1-13 by mouth. l tablet 23:48: Anton 43 hydrALAZINE 2019-05 Yes Take 50 mg [facility] 50 mg 1-13 by mouth. l tablet 23:48: Anton 43 irbesartan 2019-05 Yes Take 300 [facility] 300 mg 1-13 mg by l tablet 23:48: mouth. Anton 43 levothyroxi 2019-05 Yes Take 100 Me moria ne 100 mcg 1-13 mcg by l tablet 23:48: mouth. Anton 43 rosuvastati 2019-05 Yes Take 10 mg Memoria n 20 mg 1-13 by mouth. l tablet 23:48: Anton 43 venlafaxine 2019-05 Yes Take 150 Me moria XR 150 mg 1-13 mg by l 24 hr 23:48: mouth. Anton sandoval 43 ASPIRIN 81 2019-05 Yes q daily Rebel wilfrido MG ORAL 1-13 l CHEW 23:48: Anton Ingram TOPROL XL 2019-05 Yes q daily [facility] 50 MG ORAL 1-13 l TB24 23:48: Anton 43 LIPITOR 80 2019-05 Yes q daily Rebel wilfrido MG ORAL TAB 1-13 l 23:48: Anton 43 clopidogrel Yes 75 mg = 1 M emoria 75 mg oral 3-25 tab, PO, l tablet 19:25: Daily, 0 Refill(s) Lorazepam 1 Yes 1 mg = 1 Me moria MG Oral 3-25 tab, PO, l Tablet 19:25: TID, 0 Refill(s) losartan 50 Yes 50 mg = 1 M emoria [...] tab, PO, l Tablet 19:25: TID, 0 [place] 00 Refill(s) losartan 50 2020-0 Yes 50 [...] tab, PO, l tablet 19:25: Daily, 0 [place] 00 Refill(s) Lorazepam 1 2020-0 Yes 1 mg = 1 Me moria MG Oral 3-25 tab, PO, l Tablet 19:25: TID, 0 Anton 00 Refill(s) clopidogrel 2020-0 Yes 75 mg = 1 M emoria 75 mg oral 3-25 tab, PO, l tablet 19:25: Daily, 0 Anton 00 Refill(s) losartan 50 2020-0 Yes 50 mg = 1 M emoria mg oral 3-25 tab, PO, l tablet 19:25: Daily, # [place] 00 30 tab, 0 Refill(s) Lorazepam 1 2019-0 Yes 1 mg = 1 Me moria MG Oral 3-25 tab, PO, l Tablet 19:25: TID, 0 Anton 00 Refill(s) rosuvastati 2020-0 Yes 40 mg = 1 M emoria n 40 mg 3-25 cap, PO, l oral 19:25: Daily, 0 [place] capsule 00 Refill(s) losartan 50 2019-0 Yes 50 mg = 1 M emoria mg oral 3-25 tab, PO, l tablet 19:25: Daily, # Anton 00 30 tab, 0 Refill(s) doxepin 10 2019-0 Yes 10 mg = 1 Me moria mg oral 3-25 cap, PO, l capsule 19:25: Bedtime, # Herm anirudh 00 30 cap, 0 Refill(s) rosuvastati 2020-0 Yes 40 mg = 1 M emoria n 40 mg 3-25 cap, PO, l oral 19:25: Daily, 0 [place] capsule 00 Refill(s) doxepin 10 2019-0 Yes 10 mg = 1 Me moria mg oral 3-25 cap, PO, l capsule 19:25: Bedtime, # Herm anirudh 00 30 cap, 0 Refill(s) clopidogrel 2019-0 Yes 75 mg = 1 M emoria 75 mg oral 3-25 tab, PO, l tablet 19:25: Daily, 0 Anton 00 Refill(s) Lorazepam 1 2019-0 Yes 1 mg = 1 Me moria MG Oral 3-25 tab, PO, l Tablet 19:25: TID, 0 Anton 00 Refill(s) losartan 50 2019-0 Yes 50 mg = 1 M emoria mg oral 3-25 tab, PO, l tablet 19:25: Daily, # [place] 00 30 tab, 0 Refill(s) rosuvastati 2020-0 Yes 40 mg = 1 M emoria n 40 mg 3-25 cap, PO, l oral 19:25: Daily, 0 Anton capsule 00 Refill(s) doxepin 10 2020-0 Yes 10 mg = 1 Me moria mg oral 3-25 cap, PO, l capsule 19:25: Bedtime, # Herm anirudh 00 30 cap, 0 Refill(s) Amlodipine 2019-0 Yes 10 mg = 1 Me [...] dickens Oral Tablet 00 tab, 3 Refill(s) Amlodipine 2020-0 Yes 10 mg = 1 Me moria 10 MG Oral 3-25 tab, PO, l Tablet 18:46: Daily, # Anton [Norvasc] 00 30 tab, 1 Refill(s) metoprolol 2020-0 Yes 50 mg = 1 Me moria 50 mg oral 3-25 tab, PO, l tablet, 18:46: Daily, 0 Murray n extended 00 Refill(s) release Hydralazine 2020-0 Yes 100 mg = 1 Memoria Hydrochlori 3-25 tab, PO, l de 100 MG 18:46: TID, # 90 Her dickens Oral Tablet 00 tab, 3 Refill(s) Furosemide 2020-0 Yes 40 mg = 1 Me moria 40 MG Oral 3-25 tab, PO, l Tablet 18:46: Daily, 0 [place] 00 Refill(s) metoprolol 2020-0 Yes 50 mg = 1 Me moria 50 mg oral 3-25 tab, PO, l tablet, 18:46: Daily, 0 Murray n extended 00 Refill(s) release levothyroxi 2020-0 Yes 100 Memori a ne 100 mcg 3-25 microgram l (0.1 mg) 18:46: = 1 tab, Lupe nn oral tablet 00 PO, Daily, 0 Refill(s) Furosemide 2020-0 Yes 40 mg [...] Oral Tablet 00 tab, 3 Refill(s) metoprolol 2019-0 Yes 50 mg = 1 Me moria 50 mg oral 3-25 tab, PO, l tablet, 18:46: Daily, 0 Murray n extended 00 Refill(s) release Furosemide 2019-0 Yes 40 mg = 1 Me moria 40 MG Oral 3-25 tab, PO, l Tablet 18:46: Daily, 0 Anton 00 Refill(s) levothyroxi 2019-0 Yes 100 Memori a ne 100 mcg 3-25 microgram l (0.1 mg) 18:46: = 1 tab, Lupe nn oral tablet 00 PO, Daily, 0 Refill(s) diclofenac 2018-05 Yes Take 1 [facility] ia 75 mg EC 2-04 tablet by l tablet 00:00: mouth 2 Anton 00 (two) times daily with meals. diclofenac 2018-05 Yes Take 1 [facility] ia 75 mg EC 2-04 tablet by l tablet 00:00: mouth 2 [place] 00 (two) times daily with meals. furosemide 2018-05 Yes Mem[facility] 40 mg 2-03 l tablet 00:00: furosemide 2018-05 Yes Mem[facility] 40 mg 2-03 l tablet 00:00: hydroCHLORO 2018-05 Yes TAKE 1 Rebel wilfrido thiazide 1-07 TABLET BY l 12.5 mg 00:00: MOUTH ONCE Herm anirudh tablet 00 DAILY IN THE MORNING FOR 30 DAYS hydroCHLORO 2018-05 Yes TAKE 1 Rebel wilfrido thiazide 1-07 TABLET BY l 12.5 mg 00:00: MOUTH ONCE Herm anirudh tablet 00 DAILY IN THE MORNING FOR 30 DAYS meloxicam 2018-05 Yes Take 15 mg Me moria 15 mg 1-05 by mouth l tablet 00:00: daily. meloxicam 2018-05 Yes Take 15 mg Me moria 15 mg 1-05 by mouth l tablet 00:00: daily. Kenalog Kenalog 2018-05 No 40mg Common (Triamcinol (Triamcinol 1-04 S pirit one) one) 00:00: - [facility] losartan 50 2018-05 Yes TAKE 1 Rebel wilfrido mg tablet 0-15 TABLET BY l 00:00: MOUTH ONCE Anton 00 DAILY FOR 30 DAYS losartan 50 2018-05 Yes TAKE 1 Rebel wilfrido mg tablet 0-15 TABLET BY l 00:00: MOUTH ONCE [place] 00 DAILY FOR 30 DAYS cyclobenzap Yes TAKE 1 Rebel wilfrido rine 10 mg 9-08 TABLET BY l tablet 00:00: MOUTH [place] 00 EVERY 8 HOURS NEEDED FOR MUSCLE SPASMS cyclobenzap Yes TAKE 1 Rebel wilfrido rine 10 mg 9-08 TABLET BY l tablet 00:00: MOUTH [place] 00 EVERY 8 HOURS NEEDED FOR MUSCLE SPASMS traMADol 50 Yes TAKE 1 Rebel wilfrido mg tablet 9-07 TABLET BY l 00:00: MOUTH [place] 00 EVERY 8 HOURS NEEDED traMADol 50 Yes TAKE 1 Rebel wilfrido mg tablet 9-07 TABLET BY l 00:00: MOUTH Anton 00 EVERY 8 HOURS NEEDED Kenalog Kenalog No 40mg [facility] (Triamcinol (Triamcinol 7-08 S pirit one) one) 00:00: - [facility] Dexamethaso Dexamethaso 2019-0 No 10mg Common ne ne 7-08 Spirit 00:00: - [facility] Dexamethaso Dexamethaso 2019-0 No 10mg Common ne ne 3-18 Spirit 00:00: - [facility] 00 [facility] Kenalog Kenalog 2019-0 No 40mg Common (Triamcinol (Triamcinol 3-18 S pirit one) one) 00:00: - [facility] Dexamethaso Dexamethaso 2018-1 No 10mg Common ne ne 2-11 Spirit 00:00: - [facility] Kenalog Kenalog 2017- No 40mg Common (Triamcinol (Triamcinol 2-11 S pirit one) one) 00:00: - [facility] 00 [facility] ferrous 2017-05 Yes TAKE 1 Memoria sulfate 325 0-29 TABLET BY l mg (65 mg 00:00: MOUTH ONCE He rmann iron) EC 00 DAILY WITH tablet BREAKFAST ferrous 2017-05 Yes TAKE 1 [facility] sulfate 325 0-29 TABLET BY l mg (65 mg 00:00: MOUTH ONCE He rmann iron) EC 00 DAILY WITH tablet BREAKFAST ferrous 2017-05 Yes TAKE 1 [facility] sulfate 325 0-[address] (65 FE) MG 00:00: MOUTH ONCE [facility] EC tablet 00 DAILY WITH l BREAKFAST ferrous 2017-05 Yes TAKE 1 [facility] sulfate 325 0-[address] (65 FE) MG 00:00: MOUTH ONCE [facility] EC tablet 00 DAILY WITH l BREAKFAST rosuvastati Yes 10mg QD Take [address] [facility] [facility] (CRESTOR) 8-22 by mouth Luke [facility] 20 MG 18:04: nightly . Medical tablet 59 Center irbesartan Yes 300mg QD Take [address] (AVAPRO) 8-22 mg by [facility] 300 MG 18:04: mouth Medical tablet 59 daily . Center clopidogrel Yes 75mg QD Take [address] [facility] [address] (PLAVIX) 75 8-22 by mouth Luke [facility] mg tablet 18:04: daily. Medica l 59 Center levothyroxi 0 Yes 100ug Take [address] ne 8-22 mcg by [facility] (SYNTHROID, 18:04: mouth Medic al LEVOTHROID) 59 Every Center 100 MCG morning on tablet an empty stomach. venlafaxine Yes 150mg QD Take [address] (EFFEXOR-XR 8-22 mg by [facility] ) 150 MG 24 18:04: mouth Medic al hr capsule 59 nightly . Cent er metoprolol 2017-0 Yes 50mg Q.5D Take [address] (LOPRESSOR) 8-22 by mouth 2 Mary kes 50 MG 18:04: (two) Medical tablet 59 times Center daily. amLODIPine 0 Yes 10mg QD Take [address] (NORVASC) 8-22 by mouth [facility] 10 MG 18:04: nightly . Medical tablet 59 Center hydrALAZINE 0 Yes 50mg [id number] Take [address] (APRESOLINE 8-22 [id number] by mouth 3 [facility] ) 50 MG 18:04: 3D (three) Medical tablet 59 times Center daily. aspirin 81 2018-0 Yes 81mg QD Take [address] MG EC 8-22 by mouth [facility] tablet 18:04: daily. Medical 59 Center rosuvastati 0 Yes 10mg QD Take [address] [facility] (CRESTOR) 8-22 by mouth Luke [facility] 20 MG 18:04: nightly . Medical tablet 59 Center irbesartan Yes 300mg QD Take [address] (AVAPRO) 8-22 mg by [facility] 300 MG 18:04: mouth Medical tablet 59 daily . Center clopidogrel Yes 75mg QD Take [address] (PLAVIX) 75 8-22 by mouth Luke s mg tablet 18:04: daily. Medica l 59 Center levothyroxi Yes 100ug Take [address] ne 8-22 mcg by [facility] (SYNTHROID, 18:04: mouth Medic al LEVOTHROID) 59 Every Center 100 MCG morning on tablet an empty stomach. venlafaxine Yes 150mg QD Take [address] (EFFEXOR-XR 8-22 mg by [facility] ) 150 MG 24 18:04: mouth Medic al hr capsule 59 nightly . Cent er metoprolol Yes 50mg Q.5D Take [address] (LOPRESSOR) 8-22 by mouth 2 Mary kes 50 MG 18:04: (two) Medical tablet 59 times Center daily. amLODIPine Yes 10mg QD Take [address] (NORVASC) 8-22 by mouth [facility] 10 MG 18:04: nightly . Medical tablet 59 Center hydrALAZINE Yes 50mg [id number] Take [address] (APRESOLINE 8- [id number] by mouth 3 [facility] ) 50 MG 18:04: 3D (three) Medical tablet 59 times Center daily. aspirin 81 Yes 81mg QD Take [address] MG EC 8-22 by mouth [facility] tablet 18:04: daily. Medical 59 Center Graciela Patrickalog No 40mg [facility] (Triamcinol (Triamcinol 2-15 S pirit one) one) 00:[facility] (Triamcinol (Triamcinol 2-15 S pirit one) one) 00:00: - [facility] Dexamethaso Dexamethaso No 10mL Common ne ne 2-15 Spirit 00:00: - [facility] Dexamethaso Dexamethaso No 10mL Common ne ne 2-15 Spirit 00:00: - [facility] ASPIRIN 81 Yes 1 Tab Oral M emoria MG ORAL 4-25 QAM WITH l CHEW 00:00: BREAKFAST ATORVASTATI 2007-0 Yes 1 Tab Oral Memoria N 80 MG 4-25 QHS l ORAL TAB 00:00: AMLODIPINE 2007-0 Yes 1 Tab Oral M emoria 5 MG ORAL 4-25 DAILY l TAB 00:00: METOPROLOL 2007-0 Yes 1 Tab Oral M emoria TARTRATE 25 4-25 BID l MG ORAL TAB 00:00: CITALOPRAM 2007-0 Yes 1 Tab Oral M emoria 20 MG ORAL 4-25 DAILY l TAB 00:00: CLORAZEPATE 2007-0 Yes 0.5 Tab Mem oria DIPOTASSIUM 4-25 Oral QHS l 3.75 MG 00:00: [place] ORAL TAB ASPIRIN 81 2007-0 Yes 1 Tab Oral M emoria MG ORAL 4-25 QAM WITH l CHEW 00:00: BREAKFAST ATORVASTATI 2007-0 Yes 1 Tab Oral Memoria N 80 MG 4-25 QHS l ORAL TAB 00:00: AMLODIPINE 2007-0 Yes 1 Tab Oral M emoria 5 MG ORAL 4-25 DAILY l TAB 00:00: METOPROLOL 2007-0 Yes 1 Tab Oral M emoria TARTRATE 25 4-25 BID l MG ORAL TAB 00:00: CITALOPRAM 2007-0 Yes 1 Tab Oral M emoria 20 MG ORAL 4-25 DAILY l TAB 00:00: CLORAZEPATE 2007-0 Yes 0.5 Tab Mem oria DIPOTASSIUM 4-25 Oral QHS l 3.75 MG 00:00: [place] ORAL TAB 00 amlodipine amlodipine No amlodipine [place] 10 mg 10 mg 10 mg [facility] tablet 1 PO tablet 1 PO tablet 1 ty qd qd PO qd [facility] amlodipine amlodipine No amlodipine [place] besylate 10 besylate 10 besylate Communi mg tabs 1 mg tabs 1 10 mg tabs ty tablet po q tablet po q 1 tablet Hospita day day po q day [facility] clopidogrel clopidogrel No clopidogre [place] 75 mg 75 mg l 75 mg Communi tablet 1 po tablet 1 po tablet 1 ty qd qd po qd [facility] famotidine famotidine No 1 Q1D famotidine [place] 20 mg 20 mg 20 mg [facility] tablet Take tablet Take tablet ty 1 tablet 1 tablet Take 1 Hospi ta every day every day tablet l by oral by oral every day Clin ics route. route. by oral route. Fluzone Fluzone No Fluzone [place] High-Dose High-Dose High-Dose [facility] Quad Quad Quad ty Hospit a (PF) 240 (PF) 240 (PF) 240 l mcg/0.7 mL mcg/0.7 mL mcg/0.7 mL Clinics IM syringe IM syringe IM syringe PHARMACIST PHARMACIST PHARMACIST ADMINISTERE ADMINISTERE ADMINISTER D D ED IMMUNIZATIO IMMUNIZATIO IMMUNIZATI N N ON ADMINISTERE ADMINISTERE ADMINISTER D AT TIME D AT TIME ED AT TIME OF OF OF DISPENSING DISPENSING DISPENSING furosemide furosemide No furosemide [place] 40 mg 40 mg 40 mg [facility] tablet Take tablet Take tablet ty 1 tablet 1 tablet Take 1 Hospi ta every day every day tablet l by oral by oral every day Clin ics route. route. by oral route. hydralazine hydralazine No 1 BID hydralazin [place] 100 mg 100 mg e 100 mg [facility]i tablet Take tablet Take tablet ty 1 tablet 1 tablet Take 1 Hospi ta twice a day twice a day tablet l by oral by oral twice a Clinic s route. route. day by oral route. ibuprofen ibuprofen No ibuprofen [place] PRN PRN PRN Communi ty Hospita l Clinics levothyroxi levothyroxi No levothyrox [place] ne 125 mcg ne 125 mcg ine 125 Communi tablet Take tablet Take mcg tablet ty 1 tablet 1 tablet Take 1 Hospi ta every day every day tablet l by oral by oral every day Clin ics route. route. by oral route. lorazepam lorazepam No lorazepam [place] 0.5 mg 0.5 mg 0.5 mg [facility] tablet 1 Po tablet 1 Po tablet 1 ty qd prn qd prn Po qd prn Hospit a anxiety anxiety anxiety l attack attack attack Clinics meclizine meclizine No meclizine [place] 25 mg 25 mg 25 mg [facility] tablet TAKE tablet TAKE tablet ty 1 TABLET BY 1 TABLET BY TAKE 1 Hospita MOUTH MOUTH TABLET BY l NEEDED *MAY NEEDED *MAY MOUTH Clinics IMPAIR IMPAIR NEEDED ALERTNESS ALERTNESS *MAY IMPAIR ALERTNESS* * metoprolol metoprolol No metoprolol [place] succinate succinate succinate Communi ER 50 mg ER 50 mg ER 50 mg ty tablet,exte tablet,exte tablet,ext Hospita nded nded ended l release 24 release 24 release 24 Clinics hr 1 PO qd hr 1 PO qd hr 1 PO qd ondansetron ondansetron No ondansetro [place] HCl 4 mg HCl 4 mg n HCl 4 mg C ommuni tablet TAKE tablet TAKE tablet ty 1 TABLET BY 1 TABLET BY TAKE 1 Hospita MOUTH EVERY MOUTH EVERY TABLET BY l 6 HOURS 6 HOURS MOUTH Cl inics NEEDED NEEDED EVERY 6 HOURS NEEDED rosuvastati rosuvastati No rosuvastat [place] n 40 mg n 40 mg in 40 mg Commu ni tablet Take tablet Take tablet ty 1 tablet 1 tablet Take 1 Hospi ta every day every day tablet l by oral by oral every day Clin ics route. route. by oral route. trazodone trazodone No trazodone [place] 50 mg 50 mg 50 mg [facility]i tablet Take tablet Take tablet ty 1 tablet 1 tablet Take 1 Hospi ta every day every day tablet l by oral by oral every day Clin ics route at route at by oral bedtime. bedtime. route at bedtime. venlafaxine venlafaxine No venlafaxin [place] ER 37.5 mg ER 37.5 mg e ER 37.5 Communi capsule,ext capsule,ext mg t y ended ended capsule,ex Hospita release 24 release 24 tended l hr 1 PO qd hr 1 PO qd release 24 Clinics hr 1 PO qd amlodipine amlodipine No amlodipine [place] 10 mg 10 mg 10 mg [facility] tablet 1 PO tablet 1 PO tablet 1 ty qd qd PO qd Hospita l Clinics amlodipine amlodipine No amlodipine [place] besylate 10 besylate 10 besylate Communi mg tabs 1 mg tabs 1 10 mg tabs ty tablet po q tablet po q 1 tablet Hospita day day po q day l Clinics clopidogrel clopidogrel No clopidogre [place] 75 mg 75 mg l 75 mg Communi tablet 1 po tablet 1 po tablet 1 ty qd qd po qd Hospita l Clinics famotidine famotidine No 1 Q1D famotidine [place] 20 mg 20 mg 20 mg [facility] tablet Take tablet Take tablet ty 1 tablet 1 tablet Take 1 Hospi ta every day every day tablet l by oral by oral every day Clin ics route. route. by oral route. Fluzone Fluzone No Fluzone [place] High-Dose High-Dose High-Dose [facility] Quad Quad Quad ty Hospit a (PF) 240 (PF) 240 (PF) 240 l mcg/0.7 mL mcg/0.7 mL mcg/0.7 mL Clinics IM syringe IM syringe IM syringe PHARMACIST PHARMACIST PHARMACIST ADMINISTERE ADMINISTERE ADMINISTER D D ED IMMUNIZATIO IMMUNIZATIO IMMUNIZATI N N ON ADMINISTERE ADMINISTERE ADMINISTER D AT TIME D AT TIME ED AT TIME OF OF OF DISPENSING DISPENSING DISPENSING furosemide furosemide No furosemide [place] 40 mg 40 mg 40 mg [facility] tablet Take tablet Take tablet ty 1 tablet 1 tablet Take 1 Hospi ta every day every day tablet l by oral by oral every day Clin ics route. route. by oral route. hydralazine hydralazine No 1 BID hydralazin [place] 100 mg 100 mg e 100 mg Communi tablet Take tablet Take tablet ty 1 tablet 1 tablet Take 1 Hospi ta twice a day twice a day tablet l by oral by oral twice a Clinic s route. route. day by oral route. ibuprofen ibuprofen No ibuprofen [place] PRN PRN PRN Communi ty Hospita l Clinics levothyroxi levothyroxi No levothyrox [place] ne 125 mcg ne 125 mcg ine 125 Communi tablet TAKE tablet TAKE mcg tablet ty 1 TABLET BY 1 TABLET BY TAKE 1 Hospita MOUTH EVERY MOUTH EVERY TABLET BY l DAY ON AN DAY ON AN MOUTH Clin ics EMPTY EMPTY EVERY DAY STOMACH STOMACH ON AN WITH A WITH A EMPTY GLASS OF GLASS OF STOMACH WATER WATER WITH A GLASS OF WATER lorazepam lorazepam No lorazepam [place] 0.5 mg 0.5 mg 0.5 mg [facility] tablet 1 Po tablet 1 Po tablet 1 ty qd prn qd prn Po qd prn Hospit a anxiety anxiety anxiety l attack attack attack Clinics meclizine meclizine No meclizine [place] 25 mg 25 mg 25 mg [facility]i tablet TAKE tablet TAKE tablet ty 1 TABLET BY 1 TABLET BY TAKE 1 Hospita MOUTH MOUTH TABLET BY l NEEDED *MAY NEEDED *MAY MOUTH Clinics IMPAIR IMPAIR NEEDED ALERTNESS ALERTNESS *MAY IMPAIR ALERTNESS* * metoprolol metoprolol No metoprolol [place] succinate succinate succinate Communi ER 50 mg ER 50 mg ER 50 mg ty tablet,exte tablet,exte tablet,ext Hospita nded nded ended l release 24 release 24 release 24 Clinics hr 1 PO qd hr 1 PO qd hr 1 PO qd ondansetron ondansetron No ondansetro [place] HCl 4 mg HCl 4 mg n HCl 4 mg C om[facility]i tablet TAKE tablet TAKE tablet ty 1 TABLET BY 1 TABLET BY TAKE 1 Hospita MOUTH EVERY MOUTH EVERY TABLET BY l 6 HOURS 6 HOURS MOUTH Cl inics NEEDED NEEDED EVERY 6 HOURS NEEDED rosuvastati rosuvastati No rosuvastat [place] n 40 mg n 40 mg in 40 mg Commu ni tablet Take tablet Take tablet ty 1 tablet 1 tablet Take 1 Hospi ta every day every day tablet l by oral by oral every day Clin ics route. route. by oral route. trazodone trazodone No trazodone [place] 50 mg 50 mg 50 mg [facility] tablet Take tablet Take tablet ty 1 tablet 1 tablet Take 1 Hospi ta every day every day tablet l by oral by oral every day Clin ics route at route at by oral bedtime. bedtime. route at bedtime. venlafaxine venlafaxine No venlafaxin [place] ER 37.5 mg ER 37.5 mg e ER 37.5 [facility]i capsule,ext capsule,ext mg t y ended ended capsule,ex Hospita release 24 release 24 tended l hr 1 PO qd hr 1 PO qd release 24 Clinics hr 1 PO qd amlodipine amlodipine No amlodipine [place] besylate 10 besylate 10 besylate [facility]i mg tabs 1 mg tabs 1 10 mg tabs ty tablet po q tablet po q 1 tablet Hospita day day po q day l Clinics clopidogrel clopidogrel No clopidogre [place] 75 mg 75 mg l 75 mg [facility]i tablet 1 po tablet 1 po tablet 1 ty qd qd po qd Hospita l Clinics famotidine famotidine No 1 Q1D famotidine [place] 20 mg 20 mg 20 mg [facility] tablet Take tablet Take tablet ty 1 tablet 1 tablet Take 1 Hospi ta every day every day tablet l by oral by oral every day Clin ics route. route. by oral route. Fluzone Fluzone No Fluzone [place] High-Dose High-Dose High-Dose [facility] Quad Quad Quad ty Hospit a (PF) 240 (PF) 240 (PF) 240 l mcg/0.7 mL mcg/0.7 mL mcg/0.7 mL Clinics IM syringe IM syringe IM syringe PHARMACIST PHARMACIST PHARMACIST ADMINISTERE ADMINISTERE ADMINISTER D D ED IMMUNIZATIO IMMUNIZATIO IMMUNIZATI N N ON ADMINISTERE ADMINISTERE ADMINISTER D AT TIME D AT TIME ED AT TIME OF OF OF DISPENSING DISPENSING DISPENSING furosemide furosemide No furosemide [place] 40 mg 40 mg 40 mg [facility] tablet Take tablet Take tablet ty 1 tablet 1 tablet Take 1 Hospi ta every day every day tablet l by oral by oral every day Clin ics route. route. by oral route. hydralazine hydralazine No hydralazin [place] 100 mg 100 mg e 100 mg [facility]i tablet Take tablet Take tablet ty 1 tablet 1 tablet Take 1 Hospi ta twice a day twice a day tablet l by oral by oral twice a Clinic s route. route. day by oral route. ibuprofen ibuprofen No ibuprofen [place] PRN PRN PRN Communi ty Hospita l Clinics levothyroxi levothyroxi No levothyrox [place] ne 125 mcg ne 125 mcg ine 125 Communi tablet TAKE tablet TAKE mcg tablet ty 1 TABLET BY 1 TABLET BY TAKE 1 Hospita MOUTH EVERY MOUTH EVERY TABLET BY l DAY ON AN DAY ON AN MOUTH Clin ics EMPTY EMPTY EVERY DAY STOMACH STOMACH ON AN WITH A WITH A EMPTY GLASS OF GLASS OF STOMACH WATER WATER WITH A GLASS OF WATER lorazepam lorazepam No lorazepam [place] 0.5 mg 0.5 mg 0.5 mg [facility]i tablet 1 Po tablet 1 Po tablet 1 ty qd prn qd prn Po qd prn Hospit a anxiety anxiety anxiety l attack attack attack Clinics meclizine meclizine No 1 TID meclizine [place] 25 mg 25 mg 25 mg Communi tablet Take tablet Take tablet ty 1 tablet 3 1 tablet 3 Take 1 H ospita times a day times a day tablet 3 l by oral by oral times a Clinic s route as route as day by needed. needed. oral route as needed. metoprolol metoprolol No metoprolol [place] succinate succinate succinate Communi ER 50 mg ER 50 mg ER 50 mg ty tablet,exte tablet,exte tablet,ext Hospita nded nded ended l release 24 release 24 release 24 Clinics hr 1 PO qd hr 1 PO qd hr 1 PO qd ondansetron ondansetron No ondansetro [place] HCl 8 mg HCl 8 mg n HCl 8 mg C [facility] tablet TAKE tablet TAKE tablet ty 1 TABLET BY 1 TABLET BY TAKE 1 Hospita MOUTH EVERY MOUTH EVERY TABLET BY l 8 HOURS FOR 8 HOURS FOR MOUTH Clinics NAUSEA *MAY NAUSEA *MAY EVERY 8 IMPAIR IMPAIR HOURS FOR ALERTNESS ALERTNESS NAUSEA *MAY IMPAIR ALERTNESS* * rosuvastati rosuvastati No rosuvastat [place] n 40 mg n 40 mg in 40 mg Commu ni tablet Take tablet Take tablet ty 1 tablet 1 tablet Take 1 Hospi ta every day every day tablet l by oral by oral every day Clin ics route. route. by oral route. trazodone trazodone No trazodone [place] 50 mg 50 mg 50 mg [facility] tablet 1 tablet 1 tablet 1 ty tab PO at tab PO at tab PO at [facility] every HS every HS every l other day other day other day Clinics amlodipine amlodipine No amlodipine [place] 10 mg 10 mg 10 mg [facility] tablet 1 PO tablet 1 PO tablet 1 ty qd qd PO qd [facility]ospita l Clinics amlodipine amlodipine No amlodipine [place] besylate 10 besylate 10 besylate [facility] mg tabs 1 mg tabs 1 10 mg tabs ty tablet po q tablet po q 1 tablet Hospita day day po q day l Clinics clopidogrel clopidogrel No clopidogre [place] 75 mg 75 mg l 75 mg Communi tablet 1 po tablet 1 po tablet 1 ty qd qd po qd [facility] l Clinics famotidine famotidine No 1 Q1D famotidine [place] 20 mg 20 mg 20 mg [facility] tablet Take tablet Take tablet ty 1 tablet 1 tablet Take 1 Hospi ta every day every day tablet l by oral by oral every day Clin ics route. route. by oral route. fluticasone fluticasone No fluticason [place] propionate propionate e Com isabelle 50 50 propionate ty mcg/actuati mcg/actuati 50 H [facility]spita on nasal on nasal mcg/actuat l spray,suspe spray,suspe ion nasal Clinics nsion [place] nsion [place] spray,susp 2 sprays 2 sprays ension every day every day [place] 2 by by sprays intranasal intranasal every day route. route. by intranasal route. Fluzone Fluzone No Fluzone [place] High-Dose High-Dose High-Dose [facility] Quad Quad Quad ty Hospit a (PF) 240 (PF) 240 (PF) 240 l mcg/0.7 mL mcg/0.7 mL mcg/0.7 mL Clinics IM syringe IM syringe IM syringe PHARMACIST PHARMACIST PHARMACIST ADMINISTERE ADMINISTERE ADMINISTER D D ED IMMUNIZATIO IMMUNIZATIO IMMUNIZATI N N ON ADMINISTERE ADMINISTERE ADMINISTER D AT TIME D AT TIME ED AT TIME OF OF OF DISPENSING DISPENSING DISPENSING furosemide furosemide No furosemide [place] 40 mg 40 mg 40 mg [facility] tablet Take tablet Take tablet ty 1 tablet 1 tablet Take 1 Hospi ta every day every day tablet l by oral by oral every day Clin ics route. route. by oral route. hydralazine hydralazine No 1 BID hydralazin [place] 100 mg 100 mg e 100 mg [facility] tablet Take tablet Take tablet ty 1 tablet 1 tablet Take 1 Hospi ta twice a day twice a day tablet l by oral by oral twice a Clinic s route. route. day by oral route. ibuprofen ibuprofen No ibuprofen [place] PRN PRN PRN [facility] ty [facility] l Clinics levothyroxi levothyroxi No levothyrox [place] ne 125 mcg ne 125 mcg ine 125 [facility] tablet Take tablet Take mcg tablet ty 1 tablet 1 tablet Take 1 Hospi ta every day every day tablet l by oral by oral every day Clin ics route. route. by oral route. lorazepam lorazepam No lorazepam [place] 0.5 mg 0.5 mg 0.5 mg [facility] tablet 1 Po tablet 1 Po tablet 1 ty qd prn qd prn Po qd prn Hospit a anxiety anxiety anxiety l attack attack attack Clinics meclizine meclizine No meclizine [place] 25 mg 25 mg 25 mg [facility] tablet TAKE tablet TAKE tablet ty 1 TABLET BY 1 TABLET BY TAKE 1 Hospita MOUTH MOUTH TABLET BY l NEEDED *MAY NEEDED *MAY MOUTH Clinics IMPAIR IMPAIR NEEDED ALERTNESS ALERTNESS *MAY IMPAIR ALERTNESS* * metoprolol metoprolol No metoprolol [place] succinate succinate succinate [facility] ER 50 mg ER 50 mg ER 50 mg ty tablet,exte tablet,exte tablet,ext Hospita nded nded ended l release 24 release 24 release 24 Clinics hr 1 PO qd hr 1 PO qd hr 1 PO qd ondansetron ondansetron No ondansetro [place] HCl 4 mg HCl 4 mg n HCl 4 mg C ommuni tablet TAKE tablet TAKE tablet ty 1 TABLET BY 1 TABLET BY TAKE 1 Hospita MOUTH EVERY MOUTH EVERY TABLET BY l 6 HOURS 6 HOURS MOUTH Cl inics NEEDED NEEDED EVERY 6 HOURS NEEDED rosuvastati rosuvastati No rosuvastat [place] n 40 mg n 40 mg in 40 mg Commu ni tablet Take tablet Take tablet ty 1 tablet 1 tablet Take 1 Hospi ta every day every day tablet l by oral by oral every day Clin ics route. route. by oral route. venlafaxine venlafaxine No venlafaxin [place] ER 37.5 mg ER 37.5 mg e ER 37.5 [facility] capsule,ext capsule,ext mg t y ended ended capsule,ex Hospita release 24 release 24 tended l hr 1 PO qd hr 1 PO qd release 24 Clinics hr 1 PO qd Levothyroxi Levothyroxi Yes [place] 1 tablet [facility] ne Sodium ne Sodium [place] [facility] on - [facility] an empty [facility] Famotidine Famotidine No 1{table QD Famotidine 20 MG 20 MG t_at_be 20 MG dtime_a s_neede d} LORazepam 1 LORazepam 1 No LORazepam MG MG 1 MG hydrALAZINE hydrALAZINE No 1{table TID hydrALAZIN HCl 50 MG HCl 50 MG t} E HCl 50 MG Plavix 75 Plavix 75 No 1{table QD Plavix 75 MG MG t} MG Levothyroxi Levothyroxi No QD Levothyrox ne Sodium ne Sodium ine Sodium 100MCG 100MCG 100MCG Metoprolol Metoprolol No Metoprolol Succinate Succinate Succinate 50 MG 50 MG 50 MG Norvasc 10 Norvasc 10 No 1{table QD Norvasc 10 MG MG t} MG amLODIPine amLODIPine No amLODIPine Besylate 10 Besylate 10 Besylate MG MG 10 MG Zoloft 100 Zoloft 100 No 1{table QD Zoloft 100 MG MG t} MG Levothyroxi Levothyroxi No QD Levothyrox ne Sodium ne Sodium ine Sodium 100MCG 100MCG 100MCG hydrALAZINE hydrALAZINE No 1{table QD hydrALAZIN HCl 50 MG HCl 50 MG t} E HCl 50 MG Famotidine Famotidine No 1{table QD Famotidine 20 MG 20 MG t_at_be 20 MG dtime_a s_neede d} Rosuvastati Rosuvastati No 1{table QD Rosuvastat n Calcium n Calcium t} in Calcium 40 MG 40 MG 40 MG Metoprolol Metoprolol No Metoprolol Succinate Succinate Succinate 50 MG 50 MG 50 MG Plavix 75 Plavix 75 No 1{table QD Plavix 75 MG MG t} MG LORazepam 1 LORazepam 1 No LORazepam MG MG 1 MG Norvasc 10 Norvasc 10 No 1{table QD Norvasc 10 MG MG t} MG Plavix 75 Plavix 75 No 1{table QD Plavix 75 MG MG t} MG Rosuvastati Rosuvastati No 1{table QD Rosuvastat n Calcium n Calcium t} in Calcium 40 MG 40 MG 40 MG Metoprolol Metoprolol No Metoprolol Succinate Succinate Succinate 50 MG 50 MG 50 MG LORazepam 1 LORazepam 1 No LORazepam MG MG 1 MG Famotidine Famotidine No 1{table QD Famotidine 20 MG 20 MG t_at_be 20 MG dtime_a s_neede d} Zoloft 100 Zoloft 100 No 1{table QD Zoloft 100 MG MG t} MG hydrALAZINE hydrALAZINE No 1{table TID hydrALAZIN HCl 50 MG HCl 50 MG t} E HCl 50 MG amLODIPine amLODIPine No amLODIPine Besylate 10 Besylate 10 Besylate MG MG 10 MG Levothyroxi Levothyroxi No QD Levothyrox ne Sodium ne Sodium ine Sodium 100MCG 100MCG 100MCG hydrALAZINE hydrALAZINE No 1{table QD hydrALAZIN HCl 50 MG HCl 50 MG t} E HCl 50 MG LORazepam LORazepam No 1{table QD LORazepam 0.5 MG 0.5 MG t_at_be 0.5 MG dtime_a s_neede d} Famotidine Famotidine No 1{table QD Famotidine 20 MG 20 MG t_at_be 20 MG dtime_a s_neede d} amLODIPine amLODIPine No amLODIPine Besylate 10 Besylate 10 Besylate MG MG 10 MG Levothyroxi Levothyroxi No QD Levothyrox ne Sodium ne Sodium ine Sodium 100MCG 100MCG 100MCG Plavix 75 Plavix 75 No 1{table QD Plavix 75 MG MG t} MG Omeprazole Omeprazole No QD Omeprazole 40 MG 40 MG 40 MG Rosuvastati Rosuvastati No 1{table QD Rosuvastat n Calcium n Calcium t} in Calcium 40 MG 40 MG 40 MG Linzess 72 Linzess 72 No QD Linzess 72 MCG MCG MCG Metoprolol Metoprolol No Metoprolol Succinate Succinate Succinate 50 MG 50 MG 50 MG Zoloft 100 Zoloft 100 No 1{table QD Zoloft 100 MG MG t} MG Norvasc 10 Norvasc 10 No 1{table QD Norvasc 10 MG MG t} MG hydrALAZINE hydrALAZINE No 1{table QD hydrALAZIN HCl 50 MG HCl 50 MG t} E HCl 50 MG LORazepam LORazepam No 1{table QD LORazepam 0.5 MG 0.5 MG t_at_be 0.5 MG dtime_a s_neede d} Famotidine Famotidine No 1{table QD Famotidine 20 MG 20 MG t_at_be 20 MG dtime_a s_neede d} amLODIPine amLODIPine No amLODIPine Besylate 10 Besylate 10 Besylate MG MG 10 MG Levothyroxi Levothyroxi No QD Levothyrox ne Sodium ne Sodium ine Sodium 100MCG 100MCG 100MCG Plavix 75 Plavix 75 No 1{table QD Plavix 75 MG MG t} MG Omeprazole Omeprazole No QD Omeprazole 40 MG 40 MG 40 MG Rosuvastati Rosuvastati No 1{table QD Rosuvastat n Calcium n Calcium t} in Calcium 40 MG 40 MG 40 MG Linzess 72 Linzess 72 No QD Linzess 72 MCG MCG MCG Metoprolol Metoprolol No Metoprolol Succinate Succinate Succinate 50 MG 50 MG 50 MG Zoloft 100 Zoloft 100 No 1{table QD Zoloft 100 MG MG t} MG Norvasc 10 Norvasc 10 No 1{table QD Norvasc 10 MG MG t} MG LORazepam LORazepam No 1{table QD LORazepam 0.5 MG 0.5 MG t_at_be 0.5 MG dtime_a s_neede d} Norvasc 10 Norvasc 10 No 1{table QD Norvasc 10 MG MG t} MG Linzess 72 Linzess 72 No QD Linzess 72 MCG MCG MCG Metoprolol Metoprolol No Metoprolol Succinate Succinate Succinate 50 MG 50 MG 50 MG hydrALAZINE hydrALAZINE No 1{table QD hydrALAZIN HCl 50 MG HCl 50 MG t} E HCl 50 MG Famotidine Famotidine No 1{table QD Famotidine 20 MG 20 MG t_at_be 20 MG dtime_a s_neede d} Levothyroxi Levothyroxi No QD Levothyrox ne Sodium ne Sodium ine Sodium 100MCG 100MCG 100MCG Plavix 75 Plavix 75 No 1{table QD Plavix 75 MG MG t} MG cloNIDine cloNIDine No 1{table TID cloNIDine HCl 0.2 MG HCl 0.2 MG t} HCl 0.2 MG Nifedipine Nifedipine No 1{table QD Nifedipine ER 30 mg ER 30 mg t} ER 30 mg amLODIPine amLODIPine No amLODIPine Besylate 10 Besylate 10 Besylate MG MG 10 MG Omeprazole Omeprazole No QD Omeprazole 40 MG 40 MG 40 MG Rosuvastati Rosuvastati No 1{table QD Rosuvastat n Calcium n Calcium t} in Calcium 40 MG 40 MG 40 MG Zoloft 100 Zoloft 100 No 1{table QD Zoloft 100 MG MG t} MG LORazepam LORazepam No 1{table QD LORazepam 0.5 MG 0.5 MG t_at_be 0.5 MG dtime_a s_neede d} Norvasc 10 Norvasc 10 No 1{table QD Norvasc 10 MG MG t} MG Linzess 72 Linzess 72 No QD Linzess 72 MCG MCG MCG Metoprolol Metoprolol No Metoprolol Succinate Succinate Succinate 50 MG 50 MG 50 MG hydrALAZINE hydrALAZINE No 1{table QD hydrALAZIN HCl 50 MG HCl 50 MG t} E HCl 50 MG Famotidine Famotidine No 1{table QD Famotidine 20 MG 20 MG t_at_be 20 MG dtime_a s_neede d} Levothyroxi Levothyroxi No QD Levothyrox ne Sodium ne Sodium ine Sodium 100MCG 100MCG 100MCG Plavix 75 Plavix 75 No 1{table QD Plavix 75 MG MG t} MG cloNIDine cloNIDine No 1{table TID cloNIDine HCl 0.2 MG HCl 0.2 MG t} HCl 0.2 MG Nifedipine Nifedipine No 1{table QD Nifedipine ER 30 mg ER 30 mg t} ER 30 mg amLODIPine amLODIPine No amLODIPine Besylate 10 Besylate 10 Besylate MG MG 10 MG Omeprazole Omeprazole No QD Omeprazole 40 MG 40 MG 40 MG Rosuvastati Rosuvastati No 1{table QD Rosuvastat n Calcium n Calcium t} in Calcium 40 MG 40 MG 40 MG Zoloft 100 Zoloft 100 No 1{table QD Zoloft 100 MG MG t} MG LORazepam LORazepam No 1{table QD LORazepam 0.5 MG 0.5 MG t_at_be 0.5 MG dtime_a s_neede d} Norvasc 10 Norvasc 10 No 1{table QD Norvasc 10 MG MG t} MG Linzess 72 Linzess 72 No QD Linzess 72 MCG MCG MCG Metoprolol Metoprolol No Metoprolol Succinate Succinate Succinate 50 MG 50 MG 50 MG hydrALAZINE hydrALAZINE No 1{table QD hydrALAZIN HCl 50 MG HCl 50 MG t} E HCl 50 MG Famotidine Famotidine No 1{table QD Famotidine 20 MG 20 MG t_at_be 20 MG dtime_a s_neede d} Levothyroxi Levothyroxi No QD Levothyrox ne Sodium ne Sodium ine Sodium 100MCG 100MCG 100MCG Plavix 75 Plavix 75 No 1{table QD Plavix 75 MG MG t} MG cloNIDine cloNIDine No 1{table TID cloNIDine HCl 0.2 MG HCl 0.2 MG t} HCl 0.2 MG Nifedipine Nifedipine No 1{table QD Nifedipine ER 30 mg ER 30 mg t} ER 30 mg amLODIPine amLODIPine No amLODIPine Besylate 10 Besylate 10 Besylate MG MG 10 MG Omeprazole Omeprazole No QD Omeprazole 40 MG 40 MG 40 MG Rosuvastati Rosuvastati No 1{table QD Rosuvastat n Calcium n Calcium t} in Calcium 40 MG 40 MG 40 MG Zoloft 100 Zoloft 100 No 1{table QD Zoloft 100 MG MG t} MG amLODIPine amLODIPine No amLODIPine Besylate 10 Besylate 10 Besylate MG MG 10 MG LORazepam LORazepam No 1{table QD LORazepam 0.5 MG 0.5 MG t_at_be 0.5 MG dtime_a s_neede d} hydrALAZINE hydrALAZINE No 1{table QD hydrALAZIN HCl 50 MG HCl 50 MG t} E HCl 50 MG Nifedipine Nifedipine No 1{table QD Nifedipine ER 30 mg ER 30 mg t} ER 30 mg Linzess 72 Linzess 72 No QD Linzess 72 MCG MCG MCG cloNIDine cloNIDine No 1{table TID cloNIDine HCl 0.2 MG HCl 0.2 MG t} HCl 0.2 MG Rosuvastati Rosuvastati No 1{table QD Rosuvastat n Calcium n Calcium t} in Calcium 40 MG 40 MG 40 MG Norvasc 10 Norvasc 10 No 1{table QD Norvasc 10 MG MG t} MG Plavix 75 Plavix 75 No 1{table QD Plavix 75 MG MG t} MG Metoprolol Metoprolol No Metoprolol Succinate Succinate Succinate 50 MG 50 MG 50 MG Zoloft 100 Zoloft 100 No 1{table QD Zoloft 100 MG MG t} MG Omeprazole Omeprazole No QD Omeprazole 40 MG 40 MG 40 MG Famotidine Famotidine No 1{table QD Famotidine 20 MG 20 MG t_at_be 20 MG dtime_a s_neede d} Levothyroxi Levothyroxi No QD Levothyrox ne Sodium ne Sodium ine Sodium 100MCG 100MCG 100MCG Rosuvastati Rosuvastati No 1{table QD Rosuvastat n Calcium n Calcium t} in Calcium 40 MG 40 MG 40 MG amLODIPine amLODIPine No amLODIPine Besylate 10 Besylate 10 Besylate MG MG 10 MG Zoloft 100 Zoloft 100 No 1{table QD Zoloft 100 MG MG t} MG Famotidine Famotidine No 1{table QD Famotidine 20 MG 20 MG t_at_be 20 MG dtime_a s_neede d} LORazepam 1 LORazepam 1 No LORazepam MG MG 1 MG Norvasc 10 Norvasc 10 No 1{table QD Norvasc 10 MG MG t} MG hydrALAZINE hydrALAZINE No 1{table TID hydrALAZIN HCl 50 MG HCl 50 MG t} E HCl 50 MG Plavix 75 Plavix 75 No 1{table QD Plavix 75 MG MG t} MG Levothyroxi Levothyroxi No QD Levothyrox ne Sodium ne Sodium ine Sodium 100MCG 100MCG 100MCG Metoprolol Metoprolol No Metoprolol Succinate Succinate Succinate 50 MG 50 MG 50 MG Rosuvastati Rosuvastati No 1{table QD Rosuvastat n Calcium n Calcium t} in Calcium 40 MG 40 MG 40 MG Norvasc 10 Norvasc 10 No 1{table QD Norvasc 10 MG MG t} MG Zoloft 100 Zoloft 100 No 1{table QD Zoloft 100 MG MG t} MG amLODIPine amLODIPine No amLODIPine Besylate 10 Besylate 10 Besylate MG MG 10 MG Immunizations Ordered Immunization Filled Immunization Date Status Commen ts Source Name Name influenza, influenza, 2020-04-22 Completed [place] injectable, injectable, 00:00:00 [facility] influenza, influenza, 2020-04-22 Completed [place] injectable, injectable, 00:00:00 [facility] influenza, influenza, 2020-04-22 Completed [place] injectable, injectable, 00:00:00 [facility] influenza, influenza, 2020-04-22 Completed [place] injectable, injectable, 00:00:00 [facility] Graciela Owens 2019-03-26 Completed [facility] (Triamcinolone) 16:45:00 [facility] Fluzone Fluzone 2019-03-26 Completed [facility] - 16:45:00 [facility] Graciela Owens 2019-03-26 Completed [facility] (Triamcinolone) (Triamcinolone) 16:45:00 [facility] Fluzone Fluzone 2019-03-26 Completed [facility] 16:45:00 [facility] Graciela Owens 2019-03-26 Completed [facility] (Triamcinolone) (Triamcinolone) 16:45:00 [facility] Fluzone Fluzone 2019-03-26 [facility]pleted [facility] 16:45:00 [facility] Graciela Owens 2019-03-26 Completed [facility] (Triamcinolone) (Triamcinolone) 16:45:00 [facility] Fluzone Fluzone 2019-03-26 Completed [facility] 16:45:00 [facility] Kenyadira Kenalog 2019-03-26 Completed [facility] (Triamcinolone) (Triamcinolone) 16:45:00 [facility] Fluzone Fluzone 2019-03-26 Completed [facility] 16:45:00 [facility] Kenyadira Kenyadira 2019-03-26 Completed [facility] (Triamcinolone) (Triamcinolone) 16:45:00 [facility] Fluzone Fluzone 2019-03-26 Completed [facility] 16:45:00 [facility] [place]adira Kenalog 2019-03-26 Completed [facility] (Triamcinolone) (Triamcinolone) 16:45:00 [facility] Fluzone Fluzone 2019-03-26 Completed [facility] 16:45:00 [facility] Kenyadira Owens 2019-03-26 Completed [facility] (Triamcinolone) (Triamcinolone) 16:45:00 [facility] Fluzone Fluzone 2019-03-26 [facility]pleted [facility] 16:45:00 [facility] Fluzone Fluzone 2019-03-26 Completed [facility] 16:45:00 [facility] Graciela Owens 2019-03-26 Completed [facility] (Triamcinolone) (Triamcinolone) 16:45:00 [facility] Fluzone Fluzone 2019-03-26 Completed [facility] - 16:45:00 [facility] influenza, influenza, 2019-02-27 Completed [place] injectable, injectable, 00:00:00 [facility], 2019-02-27 Completed [place] injectable, injectable, 00:00:00 [facility] quadrivalent quadrivalent [facility] influenza, influenza, 2019-02-27 Completed [place] injectable, [facility], [facility], influenza, 2019-02-27 Completed [place] injectable, injectable, 00:00:00 [facility] quadrivalent [facility] Graciela Owens 2018-11-27 Completed [facility] (Triamcinolone) (Triamcinolone) 11:22:00 [facility] Graciela Owens 2018-11-27 Completed [facility] (Triamcinolone) (Triamcinolone) 11:22: [facility] Graciela Owens 2018-11-27 Completed [facility] (Triamcinolone) (Triamcinolone) 11:22: [facility] Graciela Owens 2018-11-27 Completed [facility] (Triamcinolone) (Triamcinolone) 11:22:00 [facility] Graciela Owens 2018-11-27 Completed [facility] (Triamcinolone) (Triamcinolone) 11:22:00 [facility] Graciela Owens 2018-11-27 Completed [facility] (Triamcinolone) (Triamcinolone) 11:22:00 [facility] Graciela Owens 2018-11-27 Completed [facility] (Triamcinolone) (Triamcinolone) 11:22:00 [facility] Graciela Owens 2018-11-27 Completed [facility] (Triamcinolone) (Triamcinolone) 11:22:00 [facility] Graciela Owens 2018-11-27 Completed [facility] (Triamcinolone) (Triamcinolone) 11:22:00 [facility] Dexamethasone Dexamethasone 2018-11-27 [facility]pleted [facility] 11:21[facility]00 [facility] Dexamethasone Dexamethasone 2018-11-27 [facility]pleted [facility] 11:21[facility]00 [facility] Dexamethasone Dexamethasone 2018-11-27 [facility]pleted [facility] 11:21:00 [facility] Dexamethasone Dexamethasone 2018-11-27 [facility]pleted [facility] 11:21:00 [facility] Dexamethasone Dexamethasone 2018-11-27 [facility]pleted [facility] 11:21:00 [facility] Dexamethasone Dexamethasone 2018-11-27 [facility]pleted [facility] 11:21:00 [facility] Dexamethasone Dexamethasone 2018-11-27 [facility]pleted [facility] 11:21:00 [facility] Dexamethasone Dexamethasone 2018-11-27 [facility]pleted [facility] 11:21:00 [facility] Dexamethasone Dexamethasone 2018-11-27 [facility]pleted [facility] 11:21:00 [facility] Kenalog Kenalog 2018-08-07 Completed [facility] (Triamcinolone) (Triamcinolone) 13:40:00 [facility] Dexamethasone Dexamethasone 2018-08-07 Completed [facility] 13:40:00 [facility] Kenalog Kenalog 2018-08-07 Completed [facility] (Triamcinolone) (Triamcinolone) 13:40:00 [facility] Dexamethasone Dexamethasone 2018-08-07 [facility]pleted [facility] 13:40:00 [facility] Kenalog Kenalog 2018-08-07 Completed [facility] (Triamcinolone) (Triamcinolone) 13:40:00 [facility] Dexamethasone Dexamethasone 2018-08-07 Completed [facility] 13:40:00 [facility] Kenalog Kenalog 2018-08-07 Completed [facility] (Triamcinolone) (Triamcinolone) 13:40:00 [facility] Dexamethasone Dexamethasone 2018-08-07 [facility]pleted [facility] 13:40:00 [facility] Kenalog Kenalog 2018-08-07 Completed [facility] (Triamcinolone) (Triamcinolone) 13:40:00 [facility] Dexamethasone Dexamethasone 2018-08-07 [facility]pleted [facility] 13:40:00 [facility] Kenalog Kenalog 2018-08-07 Completed [facility] (Triamcinolone) (Triamcinolone) 13:40:00 [facility] Dexamethasone Dexamethasone 2018-08-07 [facility]pleted [facility] 13:40:00 [facility] Kenalog Kenalog 2018-08-07 Completed [facility] (Triamcinolone) (Triamcinolone) 13:40:00 [facility] Dexamethasone Dexamethasone 2018-08-07 [facility]pleted [facility] 13:40:00 [facility] Kenalog Kenalog 2018-08-07 Completed [facility] (Triamcinolone) (Triamcinolone) 13:40:00 [facility] Dexamethasone Dexamethasone 2018-08-07 [facility]pleted [facility] 13:40:00 [facility] Kenalog Kenalog 2018-08-07 Completed [facility] (Triamcinolone) (Triamcinolone) 13:40:00 [facility] Dexamethasone Dexamethasone 2018-08-07 [facility]pleted [facility] 13:40:00 [facility] Kenalog Kenalog 2017-07-07 Completed [facility] (Triamcinolone) (Triamcinolone) 18:04:00 [facility] Dexamethasone Dexamethasone 2017-07-07 [facility]pleted [facility] 18:04:00 [facility] Kenalog Kenalog 2017-07-07 Completed [facility] (Triamcinolone) (Triamcinolone) 18:04:00 [facility] Dexamethasone Dexamethasone 2017-07-07 [facility]pleted [facility] 18:04:00 [facility] Kenalog Kenalog 2017-07-07 Completed [facility] - (Triamcinolone) (Triamcinolone) 18:04:00 [facility] Dexamethasone Dexamethasone 2017-07-07 [facility]pleted [facility] 18:04:00 [facility] Kenalog Kenalog 2017-07-07 Completed [facility] (Triamcinolone) (Triamcinolone) 18:04:00 [facility] Dexamethasone Dexamethasone 2017-07-07 [facility]pleted [facility] 18:04:00 [facility] Kenalog Kenalog 2017-07-07 Completed [facility] - (Triamcinolone) (Triamcinolone) 18:04:00 [facility] Dexamethasone Dexamethasone 2017-07-07 [facility]pleted [facility] 18:04:00 [facility] Kenalog Kenalog 2017-07-07 Completed [facility] - (Triamcinolone) (Triamcinolone) 18:04:00 [facility] Dexamethasone Dexamethasone 2017-07-07 [facility]pleted [facility] 18:04:00 [facility] Kenalog Kenalog 2017-07-07 Completed [facility] - (Triamcinolone) (Triamcinolone) 18:04:00 [facility] Dexamethasone Dexamethasone 2017-07-07 [facility]pleted [facility] 18:04:00 [facility] Kenalog Kenalog 2017-07-07 Completed [facility] - (Triamcinolone) (Triamcinolone) 18:04:00 [facility] Dexamethasone Dexamethasone 2017-07-07 [facility]pleted [facility] 18:04:00 [facility] Kenyadira Kenalog 2017-07-07 Completed [facility] - (Triamcinolone) (Triamcinolone) 18:04:00 [facility] Dexamethasone Dexamethasone 2017-07-07 [facility]pleted [facility] 18:04:00 [facility] Graciela Owens 2017-07-07 Completed [facility] - (Triamcinolone) (Triamcinolone) 18:03:00 [facility] Graciela Owens 2017-07-07 Completed [facility] - (Triamcinolone) (Triamcinolone) 18:03:00 [facility] Graciela Owens 2017-07-07 Completed [facility] - (Triamcinolone) (Triamcinolone) 18:03:00 [facility] Graciela Owens 2017-07-07 Completed [facility] - (Triamcinolone) (Triamcinolone) 18:03:00 [facility] Graciela Owens 2017-07-07 Completed [facility] - (Triamcinolone) (Triamcinolone) 18:03:00 [facility] Graciela Owens 2017-07-07 Completed [facility] - (Triamcinolone) (Triamcinolone) 18:03:00 [facility] Graciela Owens 2017-07-07 Completed [facility] - (Triamcinolone) (Triamcinolone) 18:03:00 [facility] Graciela Owens 2017-07-07 Completed [facility] - (Triamcinolone) (Triamcinolone) 18:03:00 [facility] Graciela Owens 2017-07-07 Completed [facility] - (Triamcinolone) (Triamcinolone) 18:03:00 [facility] Dexamethasone Dexamethasone 2017-07-07 Completed [facility] 18:[facility]00 [facility] Dexamethasone Dexamethasone 2017-07-07 Completed [facility] 18:[facility]:00 [facility] Dexamethasone Dexamethasone 2017-07-07 Completed [facility] 18:02:00 [facility] Dexamethasone Dexamethasone 2017-07-07 Completed [facility] 18:02:00 [facility] Dexamethasone Dexamethasone 2017-07-07 Completed [facility] 18:02:00 [facility] Dexamethasone Dexamethasone 2017-07-07 Completed [facility] 18:02:00 [facility] Dexamethasone Dexamethasone 2017-07-07 Completed [facility] 18:02:00 [facility] Dexamethasone Dexamethasone 2017-07-07 Completed [facility] 18:02:00 [facility] Dexamethasone Dexamethasone 2017-07-07 Completed [facility] 18:02:00 [facility] Vital Signs Vital Name Observation Time Observation Value Comments Source HEIGHT 2021-08-24 14:00:00 149.9 cm WEIGHT 2021-08-24 14:00:00 66.6 kg HEIGHT 2021-08-23 16:44:00 149.9 cm WEIGHT 2021-08-23 06:00:00 66.6 kg WEIGHT 2021-08-22 06:26:00 61.6 kg HEIGHT 2021-08-24 14:00:00 149.9 cm WEIGHT 2021-08-24 14:00:00 66.6 kg HEIGHT 2021-08-23 16:44:00 149.9 cm WEIGHT 2021-08-23 06:00:00 66.6 kg WEIGHT 2021-08-22 06:26:00 61.6 kg HEIGHT 2021-08-24 14:00:00 149.9 cm WEIGHT 2021-08-24 14:00:00 66.6 kg HEIGHT 2021-08-23 16:44:00 149.9 cm WEIGHT 2021-08-23 06:00:00 66.6 kg WEIGHT 2021-08-22 06:26:00 61.6 kg height 2021-02-12 10:50:00 59.50 [in_i] [facility] weight 2021-02-12 10:50:00 176.3 [lb_av] [facility] temperature 2021-02-12 10:50:00 97.2 [degF] [facility] bmi 2021-02-12 10:50:00 35.01 kg/m2 Common [facility] oximetry 2021-02-12 10:50:00 99 % Common [facility] respiratory rate 2021-02-12 10:50:00 19 /min Comm [facility] blood pressure 2021-02-12 10:50:00 154 mm[Hg] Common [facility] - systolic [facility] blood pressure 2021-02-12 10:50:00 87 mm[Hg] Common [facility] - diastolic [facility] height 2021-01-15 10:30:00 59.50 [in_i] Common [facility] weight 2021-01-15 10:30:00 170.3 [lb_av] [facility] temperature 2021-01-15 10:30:00 97.2 [degF] Common [facility] bmi 2021-01-15 10:30:00 33.82 kg/m2 Common [facility] oximetry 2021-01-15 10:30:00 98 % Common [facility] respiratory rate 2021-01-15 10:30:00 18 /min Comm on [facility] blood pressure 2021-01-15 10:30:00 130 mm[Hg] Common [facility] - systolic [facility] blood pressure 2021-01-15 10:30:00 89 mm[Hg] Common [facility] - diastolic [facility] height 2021-01-15 10:30:00 59.50 [in_i] Common [facility] weight 2021-01-15 10:30:00 170.3 [lb_av] [facility] temperature 2021-01-15 10:30:00 97.2 [degF] [facility] bmi 2021-01-15 10:30:00 33.82 kg/m2 Common [facility] oximetry 2021-01-15 10:30:00 98 % Common [facility] blood pressure 2021-01-15 10:30:00 130 mm[Hg] Common [facility] - systolic [facility] blood pressure 2021-01-15 10:30:00 89 mm[Hg] Common [facility] - diastolic [facility] height 2020-11-07 10:30:00 59.50 [in_i] [facility] weight 2020-11-07 10:30:00 174.6 [lb_av] Common [facility] temperature 2020-11-07 10:30:00 97.2 [degF] Common [facility] bmi 2020-11-07 10:30:00 34.67 kg/m2 [facility] oximetry 2020-11-07 10:30:00 97 % [facility] respiratory rate 2020-11-07 10:30:00 19 /min Comm on [facility] blood pressure 2020-11-07 10:30:00 142 mm[Hg] Common [facility] - systolic [facility] blood pressure 2020-11-07 10:30:00 81 mm[Hg] Common [facility] - diastolic [facility] BP Diastolic 2020-09-18 00:00:00 32 mm[Hg] [facility] s Height 2020-09-18 00:00:00 59 [in_i] [facility] s BMI (Body Mass 2020-09-18 00:00:00 36.2 kg/m2 [facility] s BP Systolic 2020-09-18 00:00:00 108 mm[Hg] [facility] s Body Weight 2020-09-18 00:00:00 2864 [oz_av] [facility] s BP Diastolic 2020-08-04 00:00:00 68 mm[Hg] [facility] s Height 2020-08-04 00:00:00 59 [in_i] [facility] s BP Systolic 2020-08-04 00:00:00 144 mm[Hg] [facility] s BP Diastolic 2020-07-25 00:00:00 76 mm[Hg] [facility] s Height 2020-07-25 00:00:00 59 [in_i] [facility] s BMI (Body Mass 2020-07-25 00:00:00 37.6 kg/m2 [facility]) [facility] s BP Systolic 2020-07-25 00:00:00 116 mm[Hg] [facility] s Body Weight 2020-07-25 00:00:00 2976 [oz_av] [facility] s BP Diastolic 2020-06-23 00:00:00 78 mm[Hg] [facility] s Height 2020-06-23 00:00:00 59 [in_i] [facility] s BMI (Body Mass 2020-06-23 00:00:00 36.6 kg/m2 [facility]) [facility] s BP Systolic 2020-06-23 00:00:00 124 mm[Hg] [facility] s Body Weight 2020-06-23 00:00:00 2896 [oz_av] [facility] s Systolic blood 2021-08-27 15:00:00 157 mm[Hg] [facility] Diastolic blood 2021-08-27 15:00:00 68 mm[Hg] [facility] Heart rate 2021-08-27 15:00:00 82 /min [facility] Body temperature 2021-08-27 15:00:00 36.39 Jill [facility] Respiratory rate 2021-08-27 15:00:00 18 /min [facility] Oxygen saturation in 2021-08-27 15:00:00 98 /min [facility] Arterial blood by Medical nter Pulse oximetry Body height 2021-08-24 14:00:00 149.9 cm [facility] Body weight 2021-08-24 14:00:00 66.6 kg [facility] BMI 2021-08-24 14:00:00 29.64 kg/m2 [facility] Systolic blood 2021-08-24 11:46:00 136 mm[Hg] [facility] Diastolic blood 2021-08-24 11:46:00 63 mm[Hg] [facility] Heart rate 2021-08-24 11:46:00 82 /min [facility] Body temperature 2021-08-24 11:46:00 36.67 Jill [facility] Respiratory rate 2021-08-24 11:46:00 17 /min [facility] Oxygen saturation in 2021-08-24 11:46:00 96 /min [facility] Arterial blood by Medical Ce nter Pulse oximetry Body height 2021-08-23 16:44:00 149.9 cm [facility] Body weight 2021-08-23 06:00:00 66.6 kg [facility] BMI 2021-08-23 06:00:00 29.66 kg/m2 [facility] Systolic (mm Hg) 2021-03-04 18:01:00 [facility] [place] Diastolic (mm Hg) 2021-03-04 18:01:00 [facility] [place] Heart Rate 2021-03-04 18:01:00 [facility] Respitory Rate 2021-03-04 18:01:00 [facility] [place] Heart Rate 2020-04-04 21:00:00 [facility] Respitory Rate 2020-04-04 21:00:00 [facility] [place] Systolic (mm Hg) 2019-08-15 18:43:00 [facility] [place] Diastolic (mm Hg) 2019-08-15 18:43:00 [facility] Heart Rate 2019-08-15 18:43:00 [facility] Respitory Rate 2019-08-15 18:43:00 [facility] [place] Height 2019-08-15 18:43:00 147.32 cm [facility] [place] Weight 2019-08-15 18:43:00 [facility] BMI Calculated 2019-08-15 18:43:00 [facility] [place] Procedures Procedure Date / Time Performing Clinician Source Performed POCT-GLUCOSE METER 2021-08-27 [facility] 2021-08-27 11:15[facility]SE METER 2021-08-27 06:17:00 [facility] W/PLT COUNT & AUTO 2021-08-27 04:59:00 Pozo-Te, [facility] CBC W/PLT COUNT & AUTO 2021-08-27 04:59:00 Pozo-Te, [facility] MAGNESIUM 2021-08-27 04:59:00 Pozo-Te, [facility] BASIC METABOLIC PANEL 2021-08-27 04:59:00 Bonnie Chanel [facility] POCT-GLUCOSE METER 2021-08-26 20:43:00 [facility] POCT-GLUCOSE METER 2021-08-26 16:05:00 [facility] SARS-COV2/RT-PCR ([facility] & 2021-08-26 16:03:00 [facility] BRAIN 2021-08-26 12:05:00 Flora Korina [facility] CTA CAROTID 2021-08-26 12:05:00 Korina Hines [facility] VANCOMYCIN LEVEL, TROUGH 2021-08-26 08:34:00 Pozo-Te, [facility] POCT-GLUCOSE METER 2021-08-26 06:13:00 [facility] W/PLT COUNT & AUTO 2021-08-26 04:24:00 Pozo-Te, [facility] MAGNESIUM 2021-08-26 04:24:00 Pozo-Te, [facility] BASIC METABOLIC PANEL 2021-08-26 04:24:00 Bonnie Chanel [facility] LIPID PANEL 2021-08-26 04:24:00 FloraKorina [facility] HEMOGLOBIN A1C 2021-08-26 04:24:00 Flora Korina Meng [facility] CBC W/PLT COUNT & AUTO 2021-08-26 04:24:00 Pozo-Te [facility] POCT-GLUCOSE METER 2021-08-25 20:59:00 Bonnie Chanel [facility] MR BRAIN WITHOUT IV 2021-08-25 16:23:00 Franklin Chu [facility] CONTRAST [facility] POCT-GLUCOSE METER 2021-08-25 15:32:00 Bonnie Chanel [facility] POCT-GLUCOSE METER 2021-08-25 11:18:00 Bonnie Chanel [facility] POCT-GLUCOSE METER 2021-08-25 06:42:00 Bonnie Chanel [facility] CBC W/PLT COUNT & AUTO 2021-08-25 04:53:00 Pozo-Te, [facility] MAGNESIUM 2021-08-25 04:53:00 Pozo-Te, [facility] BASIC METABOLIC PANEL 2021-08-25 04:53:00 Bonnie Chanel [facility] CBC W/PLT COUNT & AUTO 2021-08-25 04:53:00 Pozo-Te, [facility] POCT-GLUCOSE METER 2021-08-24 20:23:00 ShiehBonnie [facility] POCT-GLUCOSE METER 2021-08-24 17:09:00 Bonnie Chanel [facility] POCT-GLUCOSE METER 2021-08-24 11:48:00 Bonnie Chanel [facility] POCT-GLUCOSE METER 2021-08-24 07:12:00 Bonnie Chanel [facility] COMPREHENSIVE METABOLIC 2021-08-24 04:30:00 Pozo-Te, Jud [facility] CBC W/PLT COUNT & AUTO 2021-08-24 04:30:00 Pozo-Te, Jud [facility] DIFFERENTIAL [facility] MAGNESIUM 2021-08-24 04:30:00 Pozo-Te, Jud [facility]RED [facility] CBC W/PLT COUNT & AUTO 2021-08-24 04:30:00 Pozo-Te, Jud [facility] POCT-GLUCOSE METER 2021-08-23 21:22:[address] [facility] POCT-GLUCOSE METER 2021-08-23 15:51:[address] [facility] POCT-GLUCOSE METER 2021-08-23 11:00:[address] [facility] COMPREHENSIVE METABOLIC 2021-08-23 07:13:00 Pozo-Te, Jud [facility] MAGNESIUM 2021-08-23 07:13:00 Pozo-Te, Jud [facility]RED [facility] PHOSPHORUS 2021-08-23 07:13:00 Pozo-Te, [facility] IRON, TIBC, % SAT. 2021-08-23 07:13:[address] [facility] (WITHOUT FERRITIN) Medical Cente r CBC W/PLT COUNT & AUTO 2021-08-23 06:15:00 Pozo-Te, Jud [facility] CBC W/PLT COUNT & AUTO 2021-08-23 06:15:00 Pozo-Te, Jud [facility] POCT-GLUCOSE METER 2021-08-22 23:54:00 Bonnie Chanel [facility] XR CHEST PA OR AP 1 VIEW 2021-08-22 21:47:00 Pozo-TeJud Nate IN DEPT [facility] HEMOGLOBIN AND HEMATOCRIT 2021-08-22 21:42:00 Bonnie Chanel [facility] BASIC METABOLIC PANEL (7) 2021-08-22 21:42:00 Bonnie Chanel [facility] POCT-GLUCOSE METER 2021-08-22 18:04:00 Bonnie Chanel [facility] VENOUS DOPPLER LEGS 2021-08-22 13:40:00 Pozo-Te, [facility] BILATERAL [facility] HC VENOUS DOPPLER EXT DOROTHY 2021-08-22 13:39:00 Pozo-Te, [facility] POCT-GLUCOSE METER 2021-08-22 12:15:00 Bonnie Chanel [facility] 2D ECHO W/ DOPPLER 2021-08-22 12:08:00 [facility] BLOOD CULTURE 2021-08-22 06:24:00 Arvizu [facility] BLOOD GAS, ARTERIAL 2021-08-22 05:35:00 Arvizu [facility] ECG 12-LEAD 2021-08-22 05:28:08 Unknown, Hl7 [facility] XR CHEST 1 VIEW PORTABLE / 2021-08-22 05:28:[address] [facility] ECG 12-LEAD 2021-08-22 05:27:45 Unknown, Hl7 [facility] TROPONIN I 2021-08-22 05:26:00 Nick Almeida [facility] B-TYPE NATRIURETIC FACTOR 2021-08-22 05:26:00 Nick Almeida [facility] CBC W/PLT COUNT & AUTO 2021-08-22 05:11:00 Juan PabloNick hutton [facility] DIFFERENTIAL [facility] CBC W/PLT COUNT & AUTO 2021-08-22 05:11:00 Juan PabloNick hutton [facility] DIFFERENTIAL [facility] COMPREHENSIVE METABOLIC 2021-08-22 05:10:00 Pozo-Jud Diaz Xochitl [facility] PANEL [facility] TSH/FREE T4 IF INDICATED 2021-08-22 05:10:[address] [facility] URINE CULTURE 2021-08-22 05:04[facility]/ REFLEX URINE 2021-08-22 05:04:00 Arvizu, [facility] CULTURE Medical Center MAGNESIUM 2021-08-22 05:02:00 Arvizu, [facility] PHOSPHORUS 2021-08-22 05:02:00 Arvizu, [facility] LACTIC ACID, VENOUS 2021-08-22 05:02:00 [facility]/INR 2021-08-22 05:02:00 [facility] EKG-SCANNED 2021-08-22 00:00:00 [facility] [id number] 2021-03-12 00:00:00 [facility] [id number] 2021-03-12 00:00:00 [facility] [id number] 2021-03-12 00:00:00 [facility] [id number] 2020-08-22 00:00:00 [facility] [id number] 2020-08-22 00:00:00 [facility] [id number] 2020-08-22 00:00:00 [facility] [id number] 2020-08-22 00:00:00 [facility] REFERRAL- REQUEST/RESPONSE 2019-08-21 10:01:00 Doctor Unassigned , [facility] [place] Carpal tunnel release [facility] Leg Surgery Procedure [facility] Procedure on Bladder [facility] Breast Biopsy [facility] Knee Surgery [facility] Cholecystectomy [facility] Total Hysterectomy [facility] Insertion of Stent into [facility] Plan of Care Planned Activity Planned Date Details Comments Source Future Scheduled 2022-05-[address] [facility] Test 00:00:00 (12+) [code = Medical Center DEPRESSION SCREENING (12+)] Future Scheduled 2022-05-23 FALLS RISK SCREENING [facility] Test 00:00:00 [code = FALLS RISK Medical C enter SCREENING] Future Scheduled 2022-05-08 COVID-19 VACCINE (#1) [facility] Test 12:41:22 [code = COVID-19 VACCINE (#1)] Future Scheduled 2022-05-08 [facility] Test 12:41:22 SCREENING [code = BREAST CANCER SCREENING] Future Scheduled 2022-05-08 COLONOSCOPY SCREENING [facility] Test 12:41:22 [code = COLONOSCOPY SCREENING] Future Scheduled 2022-05-08 SHINGLES VACCINES (1 [facility] Test 12:41:22 of 2) [code = SHINGLES VACCINES (1 of 2)] Future Scheduled 2022-05-08 65+ [facility]CCAL [facility] 12:41:22 VACCINE (1 - PCV) [code = 65+ PNEUMOCOCCAL VACCINE (1 - PCV)] Future Scheduled 2022-05-08 INFLUENZA VACCINE [facility] Test 12:41:22 [code = INFLUENZA VACCINE] Future Scheduled 2022-01-21 INFLUENZA VACCINE (#1) [facility] 00:00[facility]00 [code = INFLUENZA Medical Ce nter VACCINE (#1)] Future Scheduled 2022-01-[address] [facility] Test 00:00:00 (Season Ended) [code = Medic al Center INFLUENZA VACCINE (Season Ended)] Future Scheduled 2021-08-24 COVID-19 VACCINE (1) [facility] Test 11:52:21 [code = COVID-19 VACCINE (1)] Future Scheduled 2021-08-24 BREAST CANCER [facility] Test 11:52:21 SCREENING [code = BREAST CANCER SCREENING] Future Scheduled 2021-08-24 COLONOSCOPY SCREENING [facility] Test 11:52:21 [code = COLONOSCOPY SCREENING] Future Scheduled 2021-08-24 SHINGLES VACCINES (#1) M [facility] Test 11:52:21 [code = SHINGLES VACCINES (#1)] Future Scheduled 2021-08-24 65+ [facility]OCCAL [facility] Test 11:52:21 VACCINE (1 of 1 - PPSV23) [code = 65+ PNEUMOCOCCAL VACCINE (1 of 1 - PPSV23)] Future Scheduled 2021-08-24 INFLUENZA VACCINE [facility] Test 11:52:21 [code = INFLUENZA VACCINE] Future Scheduled 2021-05-[address] [facility] Test 00:00:00 (12+) [code = Medical Center DEPRESSION SCREENING (12+)] Future Scheduled 2021-05-23 FALLS RISK SCREENING [facility] Test 00:00:00 [code = FALLS RISK Medical C enter SCREENING] Diagnostic Test 2020-08-04 rapid SARS CoV 2 Ag, [facility] Pending 00:00:00 QL IA, respiratory Hospital Clinics specimen [code = rapid SARS CoV 2 Ag, QL IA, respiratory specimen] Diagnostic Test 2020-08-04 HbA1c (hemoglobin [facility] Pending 00:00:00 A1c), blood [code = Hospital Clinics HbA1c (hemoglobin A1c), blood] Future Scheduled 2018-07-[address] [facility] [facility] 00:00:00 WELLNESS (YEAR 2 or Medical Center FIRST YEAR if no IPPE) [code = MEDICARE ANNUAL WELLNESS (YEAR 2 or FIRST YEAR if no IPPE)] Future Scheduled 2018-07-[address] [facility] [facility] 00:00:00 WELLNESS (YEAR 2 or Medical Center FIRST YEAR if no IPPE) [code = MEDICARE ANNUAL WELLNESS (YEAR 2 or FIRST YEAR if no IPPE)] Future Scheduled 2013 PNEUMOCOCCAL 65+ YRS [facility] Test 00:00:00 (1 - PCV) [code = Medical Ce nter PNEUMOCOCCAL 65+ YRS (1 - PCV)] Future Scheduled 2013 PNEUMOCOCCAL 65+ YRS [facility] Test 00:00:00 (1 of 1 - Medical Center [id number] PCV13) [code = PNEUMOCOCCAL 65+ YRS (1 of 1 - [id number] PCV13)] Future Scheduled 1998 SHINGLES VACCINES ([address] [facility] Test 00:00:00 of 2) [code = SHINGLES Medic al Center VACCINES (1 of 2)] Future Scheduled 1998 SHINGLES VACCINES ([address] [facility] Test 00:00:00 of 2) [code = SHINGLES Medic al Center VACCINES (1 of 2)] Future Scheduled 1967 DTAP/TDAP/TD VACCINES [facility] 00:00:00 (1 - Tdap) [code = Medical C enter DTAP/TDAP/TD VACCINES (1 - Tdap)] Future Scheduled 1967 DTAP/TDAP/TD VACCINES [facility] 00:00:00 (1 - Tdap) [code = Medical C enter DTAP/TDAP/TD VACCINES (1 - Tdap)] Future Scheduled 1966 HEPATITIS C SCREENING [facility] 00:00:00 [code = HEPATITIS C Medical Center SCREENING] Future Scheduled 1966 HEPATITIS C SCREENING [facility] 00:00:00 [code = HEPATITIS C Medical Center SCREENING] Future Scheduled [address] [facility] Test 00:00:00 Counseling and Medical Cente r Screening (12+) [code = Tobacco Cessation Counseling and Screening (12+)] Future Scheduled 1953 COVID-19 VACCINE (1) [facility] Test 00:00:00 [code = COVID-[address] VACCINE (1)] Future Scheduled 1948 COVID-19 VACCINE (#1) [facility] 00:00:00 [code = COVID-[address] VACCINE (#1)] Future Scheduled [address] [facility] Test 00:00:00 malignant neoplasm of Medica l Center breast (procedure) [code = 797618144] Future Scheduled [address] [facility] Test 00:00:00 (combo) [code = CT Medical C enter Colonography (combo)] Future Scheduled [address] [facility] Test 00:00:00 malignant neoplasm of Medica l Center colon (procedure) [code = 934509336] Future Scheduled [address] [facility] Test 00:00:00 malignant neoplasm of Medica l Center colon (procedure) [code = 450270401] Future Scheduled 1948 DXA SCAN [code = DXA [facility] Test 00:00:00 SCAN] [facility] Future Scheduled [address] [facility] Test 00:00:00 malignant neoplasm of Medica l Center colon (procedure) [code = 958562680] Future Scheduled [address] [facility] Test 00:00:00 malignant neoplasm of Medica l Center colon (procedure) [code = 274567394] Future Scheduled 1948 Sigmoidoscopy [code [facility] S[facility]oscopy] [facility] Future Scheduled [address] [facility] Test 00:00:00 malignant neoplasm of Medica l [place] breast (procedure) [code = 017540703] Future Scheduled [address] [facility] 00:00:00 (combo) [code = CT Medical C enter Colonography (combo)] Future Scheduled [address] [facility] Test 00:00:00 malignant neoplasm of Medica [facility] colon (procedure) [code = 485101558] Future Scheduled [address] [facility] Test 00:00:00 malignant neoplasm of Medica l [place] colon (procedure) [code = 568870894] Future Scheduled 1948 DXA SCAN [code = DXA [facility] Test 00:00:00 SCAN] [facility] Future Scheduled [address] [facility] Test 00:00:00 malignant neoplasm of Medica l Center colon (procedure) [code = 385268396] Future Scheduled [address] [facility] Test 00:00:00 malignant neoplasm of Medica l [place] colon (procedure) [code = 005437097] Future Scheduled 1948 Sigmoidoscopy [facility]code = [facility] S[facility]oscopy] [facility] Future Scheduled Depression screening [facility] [place] Test (procedure) [code = 273975174] Future Scheduled COVID-19 (MOLECULAR [facility] Test TESTING NUCLEIC ACID AMPLIFICATION) [code = 61384-5] Future Scheduled INFLUENZA VACCINE (#1) [facility] [code = INFLUENZA VACCINE (#1)] Future Scheduled INFLUENZA VACCINE (#1) [facility] [code = INFLUENZA VACCINE (#1)] Future Scheduled Medicare Annual [facility] Wellness Visit (procedure) [code = 067642287625165] Future Scheduled Screening for [facility] osteoporosis (procedure) [code = 154444667] Future Scheduled PNEUMOCOCCAL VACCINES Me [facility] [place] Test 65+ (1 of 1 - PPSV23) [code = PNEUMOCOCCAL VACCINES 65+ (1 of 1 - PPSV23)] Future Scheduled Screening for [facility] malignant neoplasm of colon (procedure) [code = 291905898] Future Scheduled Zoster Recombinant Memor [facility] Test Vaccine (SHINGRIX) (1 of 2) [code = Zoster Recombinant Vaccine (SHINGRIX) (1 of 2)] Future Scheduled Screening for occult Mem [facility] Test blood in feces (procedure) [code = 334568929] Future Scheduled Stool DNA-based [facility] colorectal cancer screening (procedure) [code = 492412061373939] Future Scheduled Flexible fiberoptic [facility] [place] Test sigmoidoscopy (procedure) [code = 74763049] Future Scheduled Screening for [facility] malignant neoplasm of breast (procedure) [code = 000312633] Future Scheduled DTaP,Tdap,and Td [facility] Test Vaccines (1 - Tdap) [code = DTaP,Tdap,and Td Vaccines (1 - Tdap)] Future Scheduled DTaP,Tdap,and Td [facility] Test Vaccines (1 - Tdap) [code = DTaP,Tdap,and Td Vaccines (1 - Tdap)] Future Scheduled Hepatitis C screening [facility] [place] Test (procedure) [code = 357077739] Encounters Start End Encounter Admission Attending Care Care Encounter Source Date/Time Date/Time Type Type Clinicians Facility Department ID 2021-06-17 [facility] [id number] Common 14:39:20 [facility] 2021-06-17 [facility] [id number] Common 14:38:39 [facility] 2021-06-17 [facility] [id number] Common 14:34:40 [facility] 2021-06-17 [facility] [id number] Common 13:42:40 David [id number] [facility] 2021-06-17 [facility] Common 13:16:54 David [id number] [facility] 2021-06-17 [facility] Common 13:16:28 David [id number] [facility] 2021-06-17 Outpatient [facility] [id number] Common 12:57:58 [id number] [facility] 2021-03-06 [id number] 15:25:00 Josefa [facility] 2020-08-22 Inpatient LYNNE PikeWU HCAWU [id number] [facility] 12:45:00 Nick 18 [facility] 2021-12-24 2021-12-26 Outside nullFlavo MNA [id number] Memoria 14:17:40 04:59:59 Medical r Neurology 00 l Records Oli [place] 2021-12-24 2021-12-26 Outside nullFlavo MNA [id number] Memoria 14:17:40 04:59:59 Medical r Neurology 00 l Records Oli [place] 2021-12-24 2021-12-26 Outside nullFlavo MNA [id number] Memoria 14:17:40 04:59:59 Medical r Neurology 00 l Records Oli [place]low[place] 2021-12-24 2021-12-25 Outpatient MHMISCHER MHMISCHER [id number] 09:17:40 23:59:59 00 2021-12-24 2021-12-25 Outpatient MHMISCHER MHMISCHER [id number] 09:17:40 23:59:59 00 2021-12-24 2021-12-25 Outpatient MHMISCHER MHMISCHER [id number] 09:17:40 23:59:59 00 2021-08-22 2021-08-27 [facility] Bonnie Chanel [facility] [id number] 03:46:00 16:22:00 [facility] 2021-08-27 Inpatient ER AIDA, [facility] Medical ICU [id number] [facility] 03:46:00 16:22:00 TED 2021-08-21 2021-08-22 [facility] [id number] 21:12:00 00:48:00 Encounter Bonnie Ruiz [facility] 2021-08-21 2021-08-22 Inpatient ER [facility], [facility] Medical ICU [id number] [facility] 21:12:00 00:48:00 BONNIE 2021-08-21 2021-08-22 [facility] [id number] 21:12:00 00:48:00 Encounter Bonnie Ruiz [facility] 2021-08-22 2021-08-22 Orders [facility] [id number] 00:00:00 00:00:00 [facility] 2021-07-16 2021-07-16 (TEL) [facility] [id number] Co mmon 00:00:00 00:00:00 [facility] 2021-06-24 2021-06-25 Outpatient nullFlavo MNA [id number] Memoria 17:30:00 05:59:59 r Neurology 03 l [place] 2021-06-24 2021-06-25 Outpatient nullFlavo MNA [id number] Memoria 17:30:00 05:59:59 r Neurology 03 l [place] 2021-06-24 2021-06-25 Outpatient nullFlavo MNA [id number] Memoria 17:30:00 05:59:59 r Neurology 03 l [facility] 2021-06-24 2021-06-25 Outpatient nullFlavo MNA [id number] Memoria 17:30:00 05:59:59 r Neurology 03 l [place] 2021-06-24 2021-06-24 Outpatient JAGUAR ZhangSCHWILLOW MHMISCHER [id number] 11:30:00 23:59:59 Ramon Meier 2021-06-24 2021-06-24 Outpatient HERNANDO Zhang MISCHER [id number] 11:30:00 23:59:59 Ramon 03 [place] 2021-06-24 2021-06-24 Outpatient JAGUAR ZhangSCHER MISCHER [id number] 11:30:00 23:59:59 Ramon 03 [place] 2021-06-24 2021-06-24 Outpatient MHIE MHIE [id number] Memoria 11:30:00 11:30:00 03 brad [place] 2021-06-24 2021-06-24 Outpatient MHIE MHIE [id number] Memoria 11:30:00 11:30:00 03 brad [place] 2021-06-24 2021-06-24 Outpatient MHIE MHIE [id number] Memoria 11:30:00 11:30:00 03 brad [place] 2021-03-11 2021-04-03 Inpatient LYNNE HunterWU REHA [id number] [facility] 22:00:00 13:14:[address] [place] [address] 2021-03-20 2021-03-20 (TEL) STLMLC STLMLC [id number] Co mmon 00:00:00 00:00:00 [facility] 2021-03-06 2021-03-11 Inpatient LYNNE EvansWU TELE [id number] [facility] 12:13:00 21:50:00 Nioti 99 [facility] 2021-03-04 2021-03-05 Outpatient nullFlavo MNA [id number] Memoria 18:00:00 04:59:59 r Neurology 02 l [place] 2021-03-04 2021-03-05 Outpatient nullFlavo MNA [id number] Memoria 18:00:00 04:59:59 r Neurology 02 l [place] 2021-03-04 2021-03-05 Outpatient nullFlavo MNA [id number] Memoria 18:00:00 04:59:59 r Neurology 02 l [place] 2021-03-04 2021-03-05 Outpatient nullFlavo MNA [id number] Memoria 18:00:00 04:59:59 r Neurology 02 l Oli [place]low[place] 2021-03-04 2021-03-04 Outpatient JAGUAR ZhangSCHER MHMISCHER [id number] 13:00:00 23:59:59 Ramon 02 [place] 2021-03-04 2021-03-04 Outpatient Leatha, MHMISCHER MHMISCHER [id number] 13:00:00 23:59:59 Ramon 02 [place] 2021-03-04 2021-03-04 Outpatient Leatha, MHMISCHER MHMISCHER [id number] 13:00:00 23:59:59 Ramon 02 [place] 2021-03-04 2021-03-04 Outpatient MHIE MHIE [id number] Memoria 13:00:00 13:00:00 02 brad [place] 2021-03-04 2021-03-04 Outpatient MHIE MHIE [id number] Memoria 13:00:00 13:00:00 02 brad [place] 2021-03-04 2021-03-04 Outpatient MHIE MHIE [id number] Memoria 13:00:00 13:00:00 02 brad [place] 2021-03-04 2021-03-04 (TEL) STLMLC STLMLC [id number] Co mmon 00:00:00 00:00:00 [facility] 2021-03-03 2021-03-03 (TEL) STLMLC STLMLC [id number] Co mmon 00:00:00 00:00:00 [facility] 2021-02-24 2021-02-24 (TEL) STLMLC STLMLC [id number] Co mmon 00:00:00 00:00:00 [facility] 2021-02-12 2021-02-12 OFFICE STLMLC STLMLC [id number] Co mmon 00:00:00 00:00:00 VISIT Spirit ESTAB PT - CHI LEVEL 4 [facility] 2021-01-15 2021-01-15 OFFICE STLMLC STLMLC [id number] Co mmon 00:00:00 00:00:00 VISIT Spirit ESTAB PT - CHI LEVEL 4 [facility] 2021-01-15 2021-01-15 SUB ANNUAL STLMLC STLMLC [id number] Common 00:00:00 00:00:00 MCR Spirit WELLNESS - CHI VISIT [facility] 2020-12-01 2020-12-01 (TEL) STLMLC STLMLC [id number] Co mmon 00:00:00 00:00:00 [facility] 2020-11-07 2020-11-07 OFFICE STLC STLC [id number] Co mmon 00:00:00 00:00:00 VISIT Spirit ESTAB PT - CHI LEVEL 4 [facility] 2020-09-18 2020-09-18 Outpatient ERICKSON_R [facility] [id number] [place] 05:40:00 05:40:00 [facility] 2020-09-18 2020-09-18 Jeremías [facility] [place] 00:00:00 00:00:00 [facility] ty DO: [address] [facility] [place] [place] [place], [address] FRANNY , Ph. [phone] 2020-09-18 2020-09-18 Outpatient Franny [facility] [id number] 00:00:00 00:00:00 Jeremías [id number] Kulwinder [id number] 2020-08-08 2020-08-08 Outpatient Dabaghi, HCAWU HCAWU [id number] [facility] 14:01:20 14:01:20 [facility] 30 [facility] 2020-08-05 2020-08-05 Outpatient ERICKSON_R [facility] [id number] [place] 10:12:00 10:12:00 316 [facility] 2020-08-04 2020-08-04 Outpatient ERICKSON_R [facility] [id number] [place] 04:58:00 04:58:00 315 [facility] 2020-08-04 2020-08-04 Jeremías [facility] [place] 15 [place] 00:00:00 00:00:00 [facility] ty DO: [address] [facility] [place] [place], [address] FRANNY , Ph. [phone] 2020-08-04 2020-08-04 Outpatient Franny [facility] [id number] 00:00:00 00:00:00 Jeremías [id number] Kulwinder [id number] 2020-07-25 2020-07-25 Outpatient ERICKSON_R [facility] [id number] [place] 04:09:00 04:09:00 305 [facility] 2020-07-25 2020-07-25 Outpatient Franny [facility] [id number] 00:00:00 00:00:00 Jeremías [id number] Kulwinder [id number] 2020-07-25 2020-07-25 Jeremías [facility] [place] 05 [place] 00:00:00 00:00:00 [facility] DO: [address] [facility] [place] [place], [address] FRANNY , Ph. 2020-07-08 2020-07-08 Outpatient ERICKSON_R [facility] [id number] [place] 12:08:00 12:08:00 216 [facility] 2020-06-30 2020-06-30 Outpatient ERICKSON_R [facility] [id number] [place] 05:33:00 05:33:00 208 [facility] 2020-06-30 2020-06-30 Jeremías [facility] [place] 08 [place] 00:00:00 00:00:00 [facility] DO: [address] [facility] [place] [place], [address] FRANNY , Ph. 2020-06-26 2020-06-26 Outpatient ERICKSON_R [facility] [id number] [place] 12:25:00 12:25:00 204 [facility] 2020-06-23 2020-06-23 Outpatient ERICKSON_R [facility] [id number] [place] 04:11:00 04:11:00 201 [facility] 2020-06-23 2020-06-23 Outpatient Franny [facility] [id number] 00:00:00 00:00:00 Jeremías [id number] Kulwinder [id number] 2020-06-23 2020-06-23 [facility] [place] 00:00:00 00:00:00 [facility] DO: [address] a [facility] l [address], HOSPITAL Clinic [place], [place], [address] FRANNY , Ph. 2020-05-22 2020-05-22 Outpatient ERICKSON_R [facility] [id number] [place] 12:57:00 12:57:00 231 [facility] 2020-05-20 2020-05-20 Outpatient ERICKSON_R [facility] 8439 - [place] 03:17:00 03:17:00 229 [facility] 2020-04-04 2020-04-04 Laboratory nullFlavo [facility] [id number] Memoria 23:37:06 23:57:06 Only r Family l Medicine - Lupe [facility] 2020-04-04 2020-04-04 Laboratory Lab, [facility] [id number] 17:37:06 17:57:06 Only [facility] [id number] [place] 4.2.7.2.686 Professio [phone] nal [address] 2020-04-04 2020-04-04 Outpatient Guido [facility] [id number] 17:40:00 17:40:00 KRAIG khan [facility] 2019-09-27 2019-09-27 Ambulatory nullFlavo MNA [id number] Memoria 14:45:00 14:45:00 Pre-Reg r Neurology 01 l [place] 2019-09-27 2019-09-27 Ambulatory nullFlavo MNA [id number] Memoria 14:45:00 14:45:00 Pre-Reg r Neurology 01 l [place]li [place] 2019-09-27 2019-09-27 Ambulatory nullFlavo MNA [id number] Memoria 14:45:00 14:45:00 Pre-Reg r Neurology 01 l [place] 2019-09-27 2019-09-27 Ambulatory nullFlavo MNA [id number] Memoria 14:45:00 14:45:00 Pre-Reg r Neurology 01 l Oli Barlowann 2019-09-27 2019-09-27 Outpatient MHIE MHIE [id number] Memoria 09:45:00 09:45:00 01 brad [place] 2019-09-27 2019-09-27 Outpatient MHIE MHIE [id number] Memoria 09:45:00 09:45:00 01 brad [place] 2019-09-27 2019-09-27 Outpatient MHIE MHIE [id number] Memoria 09:45:00 09:45:00 01 brad [place] 2019-09-27 2019-09-27 Outpatient Krell, MHMISCHER MHMISCHER [id number] 09:45:00 09:45:00 Ramon 01 [place] 2019-09-27 2019-09-27 Outpatient Krell, MHMISCHER MHMISCHER [id number] 09:45:00 09:45:00 Ramon 01 [place] 2019-09-27 2019-09-27 Outpatient Krell, MHMISCHER MHMISCHER [id number] 09:45:00 09:45:00 Ramon 01 [place] 2019-08-23 2019-08-23 Outpatient [facility] [id number] Common 14:06:00 14:06:00 t [facility] 2019-08-21 2019-08-21 Orders nullFlavo [facility] [id number] Memoria 00:00:00 00:00:00 Only r brad [place] 2019-08-21 2019-08-21 Orders Doctor CORNELL [id number] 00:00:00 00:00:00 Only Unassigned, MARIEL 350.1.13.10 [place] [facility] 4.2.7.2.686 [id number] [id number] 2019-08-15 2019-08-16 Outpatient nullFlavo MNA [id number] Memoria 19:00:00 04:59:59 r Neurology 00 l [place] 2019-08-15 2019-08-16 Outpatient nullFlavo MNA [id number] Memoria 19:00:00 04:59:59 r Neurology 00 l [place] 2019-08-15 2019-08-16 Outpatient nullFlavo MNA [id number] Memoria 19:00:00 04:59:59 r Neurology 00 l [place] 2019-08-15 2019-08-16 Outpatient nullFlavo MNA [id number] Memoria 19:00:00 04:59:59 r Neurology 00 l [place] 2019-08-15 2019-08-15 Outpatient Krell, MHMISCHER MHMISCHER [id number] 14:00:00 23:59:59 Ramon 00 [place] 2019-08-15 2019-08-15 Outpatient Krell, MHMISCHER MHMISCHER [id number] 14:00:00 23:59:59 Ramon 00 [place] 2019-08-15 2019-08-15 Outpatient Krell, MHMISCHER MHMISCHER [id number] 14:00:00 23:59:59 Ramon 00 [place] 2019-08-15 2019-08-15 Outpatient MHIE MHIE [id number] Memoria 14:00:00 14:00:00 00 l Anton 2019-08-15 2019-08-15 Outpatient MHIE MHIE [id number] Memoria 14:00:00 14:00:00 00 l [place] 2019-08-15 2019-08-15 Outpatient MHIE MHIE [id number] Memoria 14:00:00 14:00:00 00 l Anton 2019-07-23 2019-07-23 Outpatient [facility] [id number] Common 15:30:00 15:30:00 t Specialty/U Sp maury Specialty rology - [facility] /Urology Clinic [facility] 2019-07-17 2019-07-17 Outpatient [facility] [id number] Common 10:30:00 10:30:00 t Specialty/U Sp maury Specialty rology - [facility] /Urology Clinic [facility] 2019-06-18 2019-06-18 [facility] [id number] Memoria 00:00:00 00:00[facility] 2019-06-18 [facility] [id number] 00:00:00 00:00:00 [facility] Stop Being Watched [id number] Surgical 4.2.7.2.686 Specialti [phone] es 198 [place] 2019-06-05 2019-06-05 Refill nullFlavo [facility] [id number] Memoria 00:00:00 00:00:00 [facility] 2019-06-05 2019-06-05 Refill [facility] [id number] 00:00:00 00:00:00 [facility] Stop Being Watched 350.1.13.10 Surgical 4.2.7.2.686 Specialti [phone] es 198 [place] Results Test Description Test Time Test Comments Results Result Comments Source POC-Glucose meter 2021-08-27 15:32:26 Test Item Value Reference Range Interpretation Comme nts POC-Glucose Meter (test code = 95 mg/dL 70-110 : TESTED AT [facility] [address] [facility]) [facility] [address]: Store Mgr/Techni nena ID = [id number] for Marin, Rosalinda megan Lab Interpretation (test code = Normal 09729-1) [facility] [id number] 15:32:26 Test Item Value Reference Range Interpretation Comments POC-GLUCOSE METER 95 mg/dL 70-110 : TESTED A T [facility] 1317 (BEAKER) (test code = [address] [place] [address]) [facility] 77 478: Store Mgr/Techni nena ID = [id number] for Cerv antes, Crystal POCT-GLUCOSE [id number] 14:46:37 Test Item Value Reference Range Interpretation Comments POC-GLUCOSE METER 96 mg/dL 70-110 : TESTED A T [facility] 1317 (BEAKER) (test code = [address]) [facility] 77 478: Store Mgr/Techni nena ID = [id number] for [place] BLOOD [id number] 10:00:53 Test Item Value Reference Range Interpretation Comments CULTURE (BEAKER) (test No growth in 5 days code = 1095) POCT-GLUCOSE [id number] 06:30:57 Test Item Value Reference Range Interpretation Comments POC-GLUCOSE METER 89 mg/dL 70-110 : TESTED A T [facility] 1317 (BEAKER) (test code = [address]) [facility] 77 478: Store Mgr/Techni nena ID = [id number] for Lori Mederos BASIC METABOLIC [id number] 05:52:23 Test Item Value Reference Range Interpretation Comments SODIUM (BEAKER) 136 meq/L 135-148 (test code = 381) POTASSIUM (BEAKER) 4.2 meq/L 3.6-5.5 (test code = 379) CHLORIDE (BEAKER) 109 meq/L 98-106 H (test code = 382) CO2 (BEAKER) (test 18 meq/L 20-29 L code = 355) BLOOD UREA NITROGEN 8 mg/dL 10-26 L (BEAKER) (test code = 354) CREATININE (BEAKER) 0.43 mg/dL 0.50-1.20 L (test code = 358) GLUCOSE RANDOM 90 mg/dL 70-110 (BEAKER) (test code = 652) CALCIUM (BEAKER) 7.8 mg/dL 8.5-10.5 L (test code = 697) EGFR (BEAKER) (test 144 mL/min/1.73 ESTIM ATED GFR IS code = 1092) sq m NOT ACCURATE CREATININE CLEARANCE IN PREDICTING GLOMERULAR FILTRATION RATE . ESTIMATED GFR I S NOT APPLICABLE FOR DIALYSIS PATIEN TS. Store Mgr ID - [id number] ID - [id number] ID - [id number] ID - [id number] ID - [id number] ID - [id number] ID - [id number] ID - [id number] ID - [id number] ID - [id number] 05:52:06 Test Item Value Reference Range Interpretation Comments MAGNESIUM (BEAKER) (test code = 2.3 mg/dL 1.5-3.0 627) Store Mgr ID - [id number] ID - [id number] ID - [id number] ID - [id number] CBC W/PLT COUNT & AUTO [id number] 05:34:09 Test Item Value Reference Range Interpretation Comments WHITE BLOOD CELL COUNT (BEAKER) 10.4 K/ L 4.0-10.0 H (test code = 775) RED BLOOD CELL COUNT (BEAKER) 3.03 M/ L 4.00-5.00 L (test code = 761) HEMOGLOBIN (BEAKER) (test code = 8.0 GM/DL 12.0-15.5 L 410) HEMATOCRIT (BEAKER) (test code = 25.3 % 36.0-46.0 L 411) MEAN CORPUSCULAR VOLUME (BEAKER) 83.5 fL 82.0-99.0 (test code = 753) MEAN CORPUSCULAR HEMOGLOBIN 26.4 pg 27.0-33.0 L (BEAKER) (test code = 751) MEAN CORPUSCULAR HEMOGLOBIN CONC 31.6 GM/DL 32.0-36.0 L (BEAKER) (test code = 752) RED CELL DISTRIBUTION WIDTH 18.1 % 12.0-15.0 H (BEAKER) (test code = 412) PLATELET COUNT (BEAKER) (test 706 K/CU MM 150-430 H code = 756) MEAN PLATELET VOLUME (BEAKER) 9.9 fL 6.0-11.5 (test code = 754) NUCLEATED RED BLOOD CELLS 0 /100 WBC 0-0 (BEAKER) (test code = 413) NEUTROPHILS RELATIVE PERCENT 58 % (BEAKER) (test code = 429) LYMPHOCYTES RELATIVE PERCENT 25 % (BEAKER) (test code = 430) MONOCYTES RELATIVE PERCENT 9 % (BEAKER) (test code = 431) EOSINOPHILS RELATIVE PERCENT 5 % (BEAKER) (test code = 432) BASOPHILS RELATIVE PERCENT 1 % (BEAKER) (test code = 437) NEUTROPHILS ABSOLUTE COUNT 6.00 K/ L 1.80-8.00 (BEAKER) (test code = 670) LYMPHOCYTES ABSOLUTE COUNT 2.63 K/ L 1.48-4.50 (BEAKER) (test code = 414) MONOCYTES ABSOLUTE COUNT (BEAKER) 0.97 K/ L 0.00-1.30 (test code = 415) EOSINOPHILS ABSOLUTE COUNT 0.55 K/ L 0.00-0.50 H (BEAKER) (test code = 416) BASOPHILS ABSOLUTE COUNT (BEAKER) 0.05 K/ L 0.00-0.20 (test code = 417) IMMATURE GRANULOCYTES-RELATIVE 2 % 0-0 H PERCENT (BEAKER) (test code = 2801) POCT-GLUCOSE [id number] 23:04:01 Test Item Value Reference Range Interpretation Comments POC-GLUCOSE METER 110 mg/dL 70-110 : TESTED A T [facility] 1317 (BEAKER) (test code [address], = 1538) [place] [address]: Store Mgr/Techni nena ID = [id number] for Maricel Stevenson POCT-GLUCOSE [id number] 23:03:52 Test Item Value Reference Range Interpretation Comments POC-GLUCOSE METER 94 mg/dL 70-110 : TESTED A T [facility] 1317 (BEAKER) (test code = [address]) [place] [address] 478: Store Mgr/Techni nena ID = [id number] for Kemi Mejia SARS-CoV2/RT-PCR (Asymptomatic ONLY)2021-08-26 17:20:50 Test Item Value Reference Interpretation Comments Range SARS-COV2/RT-PCR Negative Negative The SARS-Co V-2 (test code = target nucleic 32127-2) acids are not detected in thi s specimen. Negat justin results do not preclude SARS-C oV-2 infection and should not be u sed as the sole bas is for patient management decisions. Nega tive results must be combined with clinical observations, patient history , and epidemiolog ical information. A false negative result may occu r if a specimen is improperly collected, transported or handled. This S ARS CoV-2 test is a rapid, real-anabel e RT-PCR test intended for th e qualitative detection of nucleic acid fr om SARS-CoV-2 in a nasopharyngeal swab specimen [facility] from individual s suspected of COVID-19 by the ir healthcare provider. GREYSON (test code = This test has been GREYSON) authorized by FDA under an EUA for use by authorized laboratories. This test is only authorized for the duration of the declaration that circumstances exist justifying the authorization of emergency use of in vitro diagnostic tests for detection and/or diagnosis of COVID-19 under Section 564(b)(1) of the Federal Food, Drug and Cosmetic Act, 21 U.S.C. 360bbb-3(b)(1), unless the authorization is terminated or revoked sooner. Fact Sheet for Healthcare Providers: https://www.[employer]/Documents/Xp ert%20Xpress%20SAR S%20CoV-2/Fact%20S heets/302-3802%20S ARS-COV-2%20HEALTH CARE%20PROVIDERS%2 0FACT%20SHEET.pdf Fact Sheet for Healthcare Patients: https://www.[employer]/Documents/Xp ert%20Xpress%20SAR S%20CoV-2/Fact%20S heets/302-3801%20S ARS-COV-2%20PATIEN T%20FACT%20SHEET.p df Lab Interpretation Normal (test code = 94253-4) [facility]OV[facility] ([facility])2021-08-26 17:20:50 Test Item Value Reference Range Interpretation Comments SARS-COV2/RT-PCR Negative Negative The SARS-Co V-2 target (test code = nucleic acids a re not 3376589) detected in thi s specimen. Negative result s do not preclude SARS-C oV-2 infection and s hould not be used as the fe e basis for patient managem ent decisions. Nega tive results must be combine d with clinical observ ations, patient history , and epidemiological information. A false negativ e result may occur if a spec imen is improperly trey ected, transported or handled. This SARS CoV-2 test is a rapid, real-time RT-PC R test intended for th e qualitative detection of nu cleic acid from SARS-CoV-2 in a nasopharyngeal swab specimen collected from individuals suspected of CO VID-19 by their healthcar e provider. This test has been authorized by FDA under an EUA for use by authorized laboratories. This test is only authorized for the duration of the declaration that circumstances exist justifying the authorization of emergency use of in vitro diagnostic tests for detection and/or diagnosis of COVID-19 under Section 564(b)(1) of the Federal Food, Drug and Cosmetic Act, 21 U.S.C. 360bbb-3(b)(1), unless the authorization is terminated or revoked sooner. Fact Sheet for Healthcare Providers: https://[employer].Abakan m/Documents/Xpert%20Xpress%20SARS%20CoV-2/Fact%20Sheets/302-3802%53ARSF-CHP-3%20 HEALTHCARE%20PROVIDERS%20FACT%20SHEET.pdf Fact Sheet for Healthcare Patients: https://www.[place] [employer]/Documents/Xpert%20Xp ress%20SARS%20CoV-2/Fact%20Sheets/302-3801%22EDPF-AWB-2%20PATIENT%20FACT%20SHEET .pdfCT, CTANGIO [id number] 16:29:00Unlisted Reason for Exam - Click Yes and Enter Reason Below->No [facility] : 1950 Sex: FFINAL REPORT CT, CTANGIO BRAIN, CT, CAROTID, ANGIOBRAIN CT WITHOUT CONTRAST INDICATION: Stroke, follow up COMPARISON: CT head of the same date TECHNIQUE:Rapid acquisition spiral images were obtained between the aortic arch and the cranial vertex during intravenous contrast infusion to reconstruct axial images and angiographic 3D maximum intensity projections (MIP). 3-D volumetric reformatted images were created at a dedicated workstation. Precontrast images of the brain were also obtained. Stenosis evaluation reported in compliance with NASCET criteria. DOSE REDUCTION: Dose modulation, iterative reconstruction, and/or weight-based adjustment of the mA/kV was utilized to reduce the radiation dose to as low as reasonably achievable. FINDINGS: NECT BRAIN:Remote infarcts of theright frontal lobe, and the parietal vertices.No acute intracranial hemorrhage, midline shift or mass effect. Mild chronic microvascular ischemic changes of the periventricular and subcortical white matter are present. No hydrocephalus. Orbits are within normal limits. No obstructive paranasal sinus disease. CTA BRAIN:Internal carotid arteries: Petrous, cavernous and supraclinoid portions patent. Middle cerebral arteries: Bilateral MCA M1-M2 branches demonstrate normal contrast enhancement.Anterior cerebral arteries: Bilateral NARCISA A1-A2 branches demonstrate normal contrast enhancement.Basilar system: Normal contrast opacification of the vertebrobasilar system.Posterior cerebral arteries: Normal contrast opacification of the bilateral DRYW[employer]EMAN P1-P2 branches.Venous opacification: Major dural sinuses unremarkable for bolus timing.Additional findings: None. 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 Degree of dilatation is 30% increase vessel diameter compared to the proximal and distal segments. There is normal contrast opacification of the bilateral common carotid arteries.Cervical internal carotid arteries: 70% stenosis of the proximal left internal carotid artery. Normal contrast opacification of the right cervical internal carotid artery without significant stenosis by NASCET criteria.Vertebral arteries: Normal contrast opacification of the bilateral cervical vertebral arteries.Arch anatomy: Conventional. Nonvascular findings:Small bilateral pleural effusions. 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 Degree of dilatation is 30% increase vessel diameter compared to the proximal and distal nondilated segments.4.Small bilateral pleural effusions. Signed: Vandana Mccurdy MDReport Verified Date/Time: 08/26/2021 16:29:25 CT, CAROTID, [id number] 16:29:00Unlisted Reason for Exam - Click Yes and Enter Reason Below->No [facility] : 1950 Sex: FFINAL REPORT CT, CTANGIO BRAIN, CT, CAROTID, ANGIOBRAIN CT WITHOUT CONTRAST INDICATION: Stroke, follow up COMPARISON: CT head of the same date TECHNIQUE:Rapid acquisition spiral images were obtained between the aortic arch and the cranial vertex during intravenous contrast infusion to reconstruct axial images and angiographic 3D maximum intensity projections (MIP). 3-D volumetric reformatted images were created at a dedicated workstation. Precontrast images of the brain were also obtained. Stenosis evaluation reported in compliance with NASCET criteria. DOSE REDUCTION: Dose modulation, iterative reconstruction, and/or weight-based adjustment of the mA/kV was utilized to reduce the radiation dose to as low as reasonably achievable. FINDINGS: NECT BRAIN:Remote infarcts of theright frontal lobe, and the parietal vertices.No acute intracranial hemorrhage, midline shift or mass effect. Mild chronic microvascular ischemic changes of the periventricular and subcortical white matter are present. No hydrocephalus. Orbits are within normal limits. No obstructive paranasal sinus disease. CTA BRAIN:Internal carotid arteries: Petrous, cavernous and supraclinoid portions patent. Middle cerebral arteries: Bilateral MCA M1-M2 branches demonstrate normal contrast enhancement.Anterior cerebral arteries: Bilateral NARCISA A1-A2 branches demonstrate normal contrast enhancement.Basilar system: Normal contrast opacification of the vertebrobasilar system.Posterior cerebral arteries: Normal contrast opacification of the bilateral [employer]YWALL [employer]EMAN P1-P2 branches.Venous opacification: Major dural sinuses unremarkable for bolus timing.Additional findings: None. 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 Degree of dilatation is 30% increase vessel diameter compared to the proximal and distal segments. There is normal contrast opacification of the bilateral common carotid arteries.Cervical internal carotid arteries: 70% stenosis of the proximal left internal carotid artery. Normal contrast opacification of the right cervical internal carotid artery without significant stenosis by NASCET criteria.Vertebral arteries: Normal contrast opacification of the bilateral cervical vertebral arteries.Arch anatomy: Conventional. Nonvascular findings:Small bilateral pleural effusions. 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 Degree of dilatation is 30% increase vessel diameter compared to the proximal and distal nondilated segments.4.Small bilateral pleural effusions. Signed: Vandana Mccurdy MDReport Verified Date/Time: 08/26/2021 16:29:25 VANCOMYCIN LEVEL, [id number] 09:03:34 Test Item Value Reference Range Interpretation Comments VANCOMYCIN TROUGH (BEAKER) (test 10.3 ug/mL 10.0-20.0 code = 522) Store Mgr ID - [id number] 08:42:48 Test Item Value Reference Range Interpretation Comments TRIGLYCERIDES (BEAKER) (test code = 72 mg/dL 540) CHOLESTEROL (BEAKER) (test code = 82 mg/dL 631) HDL CHOLESTEROL (BEAKER) (test code 43 mg/dL = 976) LDL CHOLESTEROL CALCULATED (BEAKER) 25 mg/dL (test code = 633) Triglyceride Reference Range: Low Risk <150 Borderline 150-199 High Risk 200- 499 Very High Risk >=500Cholesterol Reference Range: Low Risk <200 Borderline 200-239 High Risk >240HDL Cholesterol Reference Range: Low Risk >=60 High Risk <40LDL Cholesterol Reference Range: Optimal <100 Near Optimal 100-129 Borderline 130-159 High 160-189 Very High >=190 Store Mgr ID - LITOOperator ID - [id number] ID - [id number] 08:41:50 Test Item Value Reference Range Interpretation Comments HEMOGLOBIN A1C (BEAKER) (test code = 4.1 % 4.3-6.1 L 368) Store Mgr ID - [id number] 06:35:02 Test Item Value Reference Range Interpretation Comments POC-GLUCOSE METER 97 mg/dL 70-110 : TESTED A T [address] (BEAKER) (test code = [address], 15[address]) [facility] [place] [address]: Store Mgr/Techni nena ID = [id number] for Maricel Stevenson BASIC METABOLIC [id number] 05:19:44 Test Item Value Reference Range Interpretation Comments SODIUM (BEAKER) 135 meq/L 135-148 (test code = 381) POTASSIUM (BEAKER) 3.8 meq/L 3.6-5.5 (test code = 379) CHLORIDE (BEAKER) 107 meq/L 98-106 H (test code = 382) CO2 (BEAKER) (test 21 meq/L 20-29 code = 355) BLOOD UREA NITROGEN 10 mg/dL 10-26 (BEAKER) (test code = 354) CREATININE (BEAKER) 0.42 mg/dL 0.50-1.20 L (test code = 358) GLUCOSE RANDOM 94 mg/dL 70-110 (BEAKER) (test code = 652) CALCIUM (BEAKER) 7.4 mg/dL 8.5-10.5 L (test code = 697) EGFR (BEAKER) (test 148 mL/min/1.73 ESTIM ATED GFR IS code = 1092) sq m NOT ACCURATE CREATININE CLEARANCE IN PREDICTING GLOMERULAR FILTRATION RATE . ESTIMATED GFR I S NOT APPLICABLE FOR DIALYSIS PATIEN TS. Store Mgr ID - LITOOperator ID - LITOOperator ID - LITOOperator ID - LITOOperator ID - LITOOperator ID - LITOOperator ID - LITOOperator ID - LITOOperator ID - LITOOperator ID - [id number] 05:17:53 Test Item Value Reference Range Interpretation Comments MAGNESIUM (BEAKER) (test code = 2.2 mg/dL 1.5-3.0 627) Store Mgr ID - LITOOperator ID - LITOOperator ID - LITOOperator ID - LITOCBC W/PLT COUNT & AUTO [id number] 05:11:17 Test Item Value Reference Range Interpretation Comments WHITE BLOOD CELL COUNT (BEAKER) 10.3 K/ L 4.0-10.0 H (test code = 775) RED BLOOD CELL COUNT (BEAKER) 2.83 M/ L 4.00-5.00 L (test code = 761) HEMOGLOBIN (BEAKER) (test code = 7.4 GM/DL 12.0-15.5 L 410) HEMATOCRIT (BEAKER) (test code = 23.6 % 36.0-46.0 L 411) MEAN CORPUSCULAR VOLUME (BEAKER) 83.4 fL 82.0-99.0 (test code = 753) MEAN CORPUSCULAR HEMOGLOBIN 26.1 pg 27.0-33.0 L (BEAKER) (test code = 751) MEAN CORPUSCULAR HEMOGLOBIN CONC 31.4 GM/DL 32.0-36.0 L (BEAKER) (test code = 752) RED CELL DISTRIBUTION WIDTH 17.6 % 12.0-15.0 H (BEAKER) (test code = 412) PLATELET COUNT (BEAKER) (test 624 K/CU MM 150-430 H code = 756) MEAN PLATELET VOLUME (BEAKER) 10.0 fL 6.0-11.5 (test code = 754) NUCLEATED RED BLOOD CELLS 0 /100 WBC 0-0 (BEAKER) (test code = 413) NEUTROPHILS RELATIVE PERCENT 62 % (BEAKER) (test code = 429) LYMPHOCYTES RELATIVE PERCENT 21 % (BEAKER) (test code = 430) MONOCYTES RELATIVE PERCENT 11 % (BEAKER) (test code = 431) EOSINOPHILS RELATIVE PERCENT 3 % (BEAKER) (test code = 432) BASOPHILS RELATIVE PERCENT 0 % (BEAKER) (test code = 437) NEUTROPHILS ABSOLUTE COUNT 6.42 K/ L 1.80-8.00 (BEAKER) (test code = 670) LYMPHOCYTES ABSOLUTE COUNT 2.16 K/ L 1.48-4.50 (BEAKER) (test code = 414) MONOCYTES ABSOLUTE COUNT (BEAKER) 1.16 K/ L 0.00-1.30 (test code = 415) EOSINOPHILS ABSOLUTE COUNT 0.35 K/ L 0.00-0.50 (BEAKER) (test code = 416) BASOPHILS ABSOLUTE COUNT (BEAKER) 0.04 K/ L 0.00-0.20 (test code = 417) IMMATURE GRANULOCYTES-RELATIVE 2 % 0-0 H PERCENT (BEAKER) (test code = 2801) POCT-GLUCOSE [id number] 21:17:12 Test Item Value Reference Range Interpretation Comments POC-GLUCOSE METER 122 mg/dL 70-110 H : TESTED A T [address] (BEAKER) (test code [address], = 1538) [facility] [address]: Store Mgr/Techni nena ID = [id number] for Maricel Stevenson POCT-GLUCOSE [id number] 16:55:44 Test Item Value Reference Range Interpretation Comments POC-GLUCOSE METER 127 mg/dL 70-110 H : TESTED A T [address] (BEAKER) (test code [address], = 1538) [place] [address]: Store Mgr/Techni nena ID = [id number] for Cerv antes, Crystal MR, BRAIN, WITHOUT [id number] 16:33:00 [facility] : 1950 Sex: FFINAL REPORT MR, BRAIN, WITHOUT CONTRAST INDICATION: [facility] TECHNIQUE: Multiplanar, multisequence MR imaging of the brain was obtained. COMPARISON: None FINDINGS:Small acute infarctof the left parietal vertex. No hemorrhagic conversion. 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 Scattered T2/FLAIR hyperintense foci within the periventricular and subcortical white matter are nonspecific, however, statistically represent chronic microvascular ischemic changes. No hydrocephalus. Orbits are within normal limits. No obstructive paranasal sinus disease. Bilateral mastoid effusions. IMPRESSION: Small acute infarct of the left parietal vertex. No hemorrhagic conversion. 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 Signed: Kaz, Vandana MDReport Verified Date/Time: 08/25/2021 16:33:03 POCT-GLUCOSE [id number] 11:51:52 Test Item Value Reference Range Interpretation Comments POC-GLUCOSE METER 106 mg/dL 70-110 : TESTED A T [address] (BEAKER) (test code [address], = 1538) [facility] [address]: Store Mgr/Techni nena ID = [id number] for Roel macias Crystal POCT-GLUCOSE [id number] 07:02:33 Test Item Value Reference Range Interpretation Comments POC-GLUCOSE METER 91 mg/dL 70-110 : TESTED A T [address] (BEAKER) (test code = [address], 15[address]) [facility] [address]: Store Mgr/Techni nena ID = [id number] for Diana Stroud BASIC METABOLIC [id number] 05:40:00 Test Item Value Reference Range Interpretation Comments SODIUM (BEAKER) 136 meq/L 135-148 (test code = 381) POTASSIUM (BEAKER) 3.7 meq/L 3.6-5.5 (test code = 379) CHLORIDE (BEAKER) 106 meq/L 98-106 (test code = 382) CO2 (BEAKER) (test 23 meq/L 20-29 code = 355) BLOOD UREA NITROGEN 8 mg/dL 10-26 L (BEAKER) (test code = 354) CREATININE (BEAKER) 0.42 mg/dL 0.50-1.20 L (test code = 358) GLUCOSE RANDOM 98 mg/dL 70-110 (BEAKER) (test code = 652) CALCIUM (BEAKER) 7.3 mg/dL 8.5-10.5 L (test code = 697) EGFR (BEAKER) (test 148 mL/min/1.73 ESTIM ATED GFR IS code = 1092) sq m NOT ACCURATE CREATININE CLEARANCE IN PREDICTING GLOMERULAR FILTRATION RATE . ESTIMATED GFR I S NOT APPLICABLE FOR DIALYSIS PATIEN TS. Store Mgr ID - ERINYOperator ID - ERINYOperator ID - ERINYOperator ID - ERINYOperator ID - [id number] ID - GSYV24Ozvmxzal ID - TMFY21Frtjemcq ID - CMJU64Kevxxnje ID - THBT17Eucfmzfu ID - [id number] 05:24:58 Test Item Value Reference Range Interpretation Comments MAGNESIUM (BEAKER) (test code = 2.1 mg/dL 1.5-3.0 627) Store Mgr ID - ERINYOperator ID - ERINYOperator ID - ERINYOperator ID - [id number] W/PLT COUNT & AUTO [id number] 05:09:33 Test Item Value Reference Range Interpretation Comments WHITE BLOOD CELL COUNT (BEAKER) 12.0 K/ L 4.0-10.0 H (test code = 775) RED BLOOD CELL COUNT (BEAKER) 2.77 M/ L 4.00-5.00 L (test code = 761) HEMOGLOBIN (BEAKER) (test code = 7.3 GM/DL 12.0-15.5 L 410) HEMATOCRIT (BEAKER) (test code = 22.9 % 36.0-46.0 L 411) MEAN CORPUSCULAR VOLUME (BEAKER) 82.7 fL 82.0-99.0 (test code = 753) MEAN CORPUSCULAR HEMOGLOBIN 26.4 pg 27.0-33.0 L (BEAKER) (test code = 751) MEAN CORPUSCULAR HEMOGLOBIN CONC 31.9 GM/DL 32.0-36.0 L (BEAKER) (test code = 752) RED CELL DISTRIBUTION WIDTH 17.3 % 12.0-15.0 H (BEAKER) (test code = 412) PLATELET COUNT (BEAKER) (test 631 K/CU MM 150-430 H code = 756) MEAN PLATELET VOLUME (BEAKER) 9.5 fL 6.0-11.5 (test code = 754) NUCLEATED RED BLOOD CELLS 0 /100 WBC 0-0 (BEAKER) (test code = 413) NEUTROPHILS RELATIVE PERCENT 71 % (BEAKER) (test code = 429) LYMPHOCYTES RELATIVE PERCENT 16 % (BEAKER) (test code = 430) MONOCYTES RELATIVE PERCENT 9 % (BEAKER) (test code = 431) EOSINOPHILS RELATIVE PERCENT 3 % (BEAKER) (test code = 432) BASOPHILS RELATIVE PERCENT 0 % (BEAKER) (test code = 437) NEUTROPHILS ABSOLUTE COUNT 8.52 K/ L 1.80-8.00 H (BEAKER) (test code = 670) LYMPHOCYTES ABSOLUTE COUNT 1.92 K/ L 1.48-4.50 (BEAKER) (test code = 414) MONOCYTES ABSOLUTE COUNT (BEAKER) 1.05 K/ L 0.00-1.30 (test code = 415) EOSINOPHILS ABSOLUTE COUNT 0.30 K/ L 0.00-0.50 (BEAKER) (test code = 416) BASOPHILS ABSOLUTE COUNT (BEAKER) 0.04 K/ L 0.00-0.20 (test code = 417) IMMATURE GRANULOCYTES-RELATIVE 1 % 0-0 H PERCENT (BEAKER) (test code = 2801) POCT-GLUCOSE [id number] 21:49:21 Test Item Value Reference Range Interpretation Comments POC-GLUCOSE METER 114 mg/dL 70-110 H : TESTED A T [address] (BEAKER) (test code [facility], = 1538) [place] [address]: Store Mgr/Techni nena ID = [id number] for Giles gee Diana POCT-GLUCOSE [id number] 17:39:40 Test Item Value Reference Range Interpretation Comments POC-GLUCOSE METER 111 mg/dL 70-110 H : TESTED A T [address] (BEAKER) (test code [facility], = 1538) [place] [address]: Store Mgr/Techni nena ID = [id number] for Marilee er, Indigo POCT-GLUCOSE [id number] 13:22:29 Test Item Value Reference Range Interpretation Comments POC-GLUCOSE METER 101 mg/dL 70-110 : TESTED A T [address] (BEAKER) (test code [facility], = 1538) [place] [address]: Store Mgr/Techni nena ID = [id number] for Sawy er, [place] Urine [id number] 12:13:01 Test Item Value Reference Range Interpretation Comments Result (test code = 6463-4) [facility] [id number] 07:24:04 Test Item Value Reference Range Interpretation Comments POC-Glucose Meter (test 89 mg/dL 70-110 : TE STED AT [facility] code = 1538) [address] [place] [address]: Store Mgr/Techni nena ID = [id number] for Chelsea Ryan Lab Interpretation (test Normal code = 03788-7) [facility] [id number] 07:24:04 Test Item Value Reference Range Interpretation Comments POC-GLUCOSE METER 89 mg/dL 70-110 : TESTED A T [address] (BEAKER) (test code = [address], 1538) [facility] [address]: Store Mgr/Techni nena ID = [id number] for Chelsea Bingham COMPREHENSIVE METABOLIC [id number] 05:52:49 Test Item Value Reference Range Interpretation Comments TOTAL PROTEIN 4.6 gm/dL 6.0-8.5 L (BEAKER) (test code = 770) ALBUMIN (BEAKER) 2.3 g/dL 3.5-5.0 L (test code = 1145) ALKALINE PHOSPHATASE 61 U/L 30-115 (BEAKER) (test code = 346) BILIRUBIN TOTAL 0.3 mg/dL 0.1-1.2 (BEAKER) (test code = 377) SODIUM (BEAKER) (test 134 meq/L 135-148 L code = 381) POTASSIUM (BEAKER) 3.5 meq/L 3.6-5.5 L (test code = 379) CHLORIDE (BEAKER) 104 meq/L 98-106 (test code = 382) CO2 (BEAKER) (test 21 meq/L 20-29 code = 355) BLOOD UREA NITROGEN 13 mg/dL 10-26 (BEAKER) (test code = 354) CREATININE (BEAKER) 0.41 mg/dL 0.50-1.20 L (test code = 358) GLUCOSE RANDOM 88 mg/dL 70-110 (BEAKER) (test code = 652) CALCIUM (BEAKER) 7.4 mg/dL 8.5-10.5 L (test code = 697) AST (SGOT) (BEAKER) 14 U/L 5-40 (test code = 353) ALT (SGPT) (BEAKER) 7 U/L 5-50 (test code = 347) EGFR (BEAKER) (test 152 ESTIMATE D GFR IS code = 1092) mL/min/1.73 sq NOT ACCURA TE m CREATININE CLEARANCE IN PREDICTING GLOMERULAR FILTRATION RATE . ESTIMATED GFR I S NOT APPLICABLE FOR DIALYSIS PATIEN TS. Store Mgr ID - LITOOperator ID - LITOOperator ID - LITOOperator ID - LITOOperator ID - LITOOperator ID - LITOOperator ID - LITOOperator ID - LITOOperator ID - LITOOperator ID - LITOOperator ID - LITOOperator ID - LITOOperator ID - LITOOperator ID - LITOOperator ID - LITOOperator ID - [id number] 05:48:02 Test Item Value Reference Range Interpretation Comments MAGNESIUM (BEAKER) (test code = 2.0 mg/dL 1.5-3.0 627) Store Mgr ID - LITOOperator ID - LITOOperator ID - LITOOperator ID - LITOCBC W/PLT COUNT & AUTO [id number] 05:35:07 Test Item Value Reference Range Interpretation Comments WHITE BLOOD CELL COUNT (BEAKER) 12.9 K/ L 4.0-10.0 H (test code = 775) RED BLOOD CELL COUNT (BEAKER) 2.80 M/ L 4.00-5.00 L (test code = 761) HEMOGLOBIN (BEAKER) (test code = 7.3 GM/DL 12.0-15.5 L 410) HEMATOCRIT (BEAKER) (test code = 23.6 % 36.0-46.0 L 411) MEAN CORPUSCULAR VOLUME (BEAKER) 84.3 fL 82.0-99.0 (test code = 753) MEAN CORPUSCULAR HEMOGLOBIN 26.1 pg 27.0-33.0 L (BEAKER) (test code = 751) MEAN CORPUSCULAR HEMOGLOBIN CONC 30.9 GM/DL 32.0-36.0 L (BEAKER) (test code = 752) RED CELL DISTRIBUTION WIDTH 17.8 % 12.0-15.0 H (BEAKER) (test code = 412) PLATELET COUNT (BEAKER) (test 699 K/CU MM 150-430 H code = 756) MEAN PLATELET VOLUME (BEAKER) 9.6 fL 6.0-11.5 (test code = 754) NUCLEATED RED BLOOD CELLS 0 /100 WBC 0-0 (BEAKER) (test code = 413) NEUTROPHILS RELATIVE PERCENT 72 % (BEAKER) (test code = 429) LYMPHOCYTES RELATIVE PERCENT 16 % (BEAKER) (test code = 430) MONOCYTES RELATIVE PERCENT 10 % (BEAKER) (test code = 431) EOSINOPHILS RELATIVE PERCENT 1 % (BEAKER) (test code = 432) BASOPHILS RELATIVE PERCENT 0 % (BEAKER) (test code = 437) NEUTROPHILS ABSOLUTE COUNT 9.30 K/ L 1.80-8.00 H (BEAKER) (test code = 670) LYMPHOCYTES ABSOLUTE COUNT 2.11 K/ L 1.48-4.50 (BEAKER) (test code = 414) MONOCYTES ABSOLUTE COUNT (BEAKER) 1.22 K/ L 0.00-1.30 (test code = 415) EOSINOPHILS ABSOLUTE COUNT 0.13 K/ L 0.00-0.50 (BEAKER) (test code = 416) BASOPHILS ABSOLUTE COUNT (BEAKER) 0.05 K/ L 0.00-0.20 (test code = 417) IMMATURE GRANULOCYTES-RELATIVE 1 % 0-0 H PERCENT (BEAKER) (test code = 2801) POCT-GLUCOSE [id number] 21:36:16 Test Item Value Reference Range Interpretation Comments POC-GLUCOSE METER 97 mg/dL 70-110 : TESTED A T [address] (BEAKER) (test code = [address], 15[address]) [place] [address]: Store Mgr/Techni nena ID = [id number] for Chelsea Bingham POCT-GLUCOSE [id number] 18:01:00 Test Item Value Reference Range Interpretation Comments POC-GLUCOSE METER 115 mg/dL 70-110 H : TESTED A T [address] (BEAKER) (test code [address], = 1538) [place] [address]: Store Mgr/Techni nena ID = [id number] for Ali, Lauren POCT-GLUCOSE [id number] 11:56:06 Test Item Value Reference Range Interpretation Comments POC-GLUCOSE METER 119 mg/dL 70-110 H : TESTED A T [address] (BEAKER) (test code [address], = 1538) [place] [address]: Store Mgr/Techni nena ID = [id number] for Ali, Lauren IRON, TIBC, % SAT. (WITHOUT FERRITIN)2021-08-23 08:19:13 Test Item Value Reference Range Interpretation Comments IRON (BEAKER) (test code = 547) 23.0 ug/dL 45.0-170.0 L TOTAL IRON BINDING CAPACITY 141 ug/dL 250-550 L (BEAKER) (test code = 769) IRON % SATURATION (2) (BEAKER) 16 % 20-55 L (test code = 2590) Store Mgr ID - NSUVAGIYAOperator ID - [id number] Echo W/Doppler(CW/PW/Color) 2021-08-23 07:50:47Ejection FractionSLEH ECHO [facility] Echo W/Doppler(CW/PW/Color)2021-08-23 07:50:47[facility]jection [facility]SLEH [facility] COMPREHENSIVE METABOLIC [id number] 07:45:09 Test Item Value Reference Range Interpretation Comments TOTAL PROTEIN 5.0 gm/dL 6.0-8.5 L (BEAKER) (test code = 770) ALBUMIN (BEAKER) 2.4 g/dL 3.5-5.0 L (test code = 1145) ALKALINE PHOSPHATASE 73 U/L 30-115 (BEAKER) (test code = 346) BILIRUBIN TOTAL 0.3 mg/dL 0.1-1.2 (BEAKER) (test code = 377) SODIUM (BEAKER) (test 139 meq/L 135-148 code = 381) POTASSIUM (BEAKER) 4.0 meq/L 3.6-5.5 (test code = 379) CHLORIDE (BEAKER) 108 meq/L 98-106 H (test code = 382) CO2 (BEAKER) (test 21 meq/L 20-29 code = 355) BLOOD UREA NITROGEN 13 mg/dL 10-26 (BEAKER) (test code = 354) CREATININE (BEAKER) 0.45 mg/dL 0.50-1.20 L (test code = 358) GLUCOSE RANDOM 103 mg/dL 70-110 (BEAKER) (test code = 652) CALCIUM (BEAKER) 7.6 mg/dL 8.5-10.5 L (test code = 697) AST (SGOT) (BEAKER) 13 U/L 5-40 (test code = 353) ALT (SGPT) (BEAKER) 8 U/L 5-50 (test code = 347) EGFR (BEAKER) (test 137 ESTIMATE D GFR IS code = 1092) mL/min/1.73 sq NOT ACCURA TE m CREATININE CLEARANCE IN PREDICTING GLOMERULAR FILTRATION RATE . ESTIMATED GFR I S NOT APPLICABLE FOR DIALYSIS PATIEN TS. Store Mgr ID - NSUVAGIYAOperator ID - NSUVAGIYAOperator ID - NSUVAGIYAOperator ID - NSUVAGIYAOperatorID - NSUVAGIYAOperator ID - NSUVAGIYAOperator ID - NSUVAGIYAOperator ID - NSUVAGIYAOperator ID - NSUVAGIYAOperator ID - NSUVAGIYAOperator ID - NSUVAGIYAOperator ID - NSUVAGIYAOperator ID - NSUVAGIYAOperator ID - NSUVAGIYAOperator ID - NSUVAGIYAOperator ID - NSUVAGIYA [id number] 07:35:59 Test Item Value Reference Range Interpretation Comments MAGNESIUM (BEAKER) (test code = 2.1 mg/dL 1.5-3.0 627) Store Mgr ID - NSUVAGIYAOperator ID - NSUVAGIYAOperator ID - NSUVAGIYAOperator ID - [id number] 07:32:40 Test Item Value Reference Range Interpretation Comments PHOSPHORUS (BEAKER) (test code = 2.1 mg/dL 2.5-4.5 L 604) Store Mgr ID - NSUVAGIYACBC W/PLT COUNT & AUTO [id number] 06:37:09 Test Item Value Reference Range Interpretation Comments WHITE BLOOD CELL COUNT (BEAKER) 13.5 K/ L 4.0-10.0 H (test code = 775) RED BLOOD CELL COUNT (BEAKER) 3.05 M/ L 4.00-5.00 L (test code = 761) HEMOGLOBIN (BEAKER) (test code = 7.9 GM/DL 12.0-15.5 L 410) HEMATOCRIT (BEAKER) (test code = 25.4 % 36.0-46.0 L 411) MEAN CORPUSCULAR VOLUME (BEAKER) 83.3 fL 82.0-99.0 (test code = 753) MEAN CORPUSCULAR HEMOGLOBIN 25.9 pg 27.0-33.0 L (BEAKER) (test code = 751) MEAN CORPUSCULAR HEMOGLOBIN CONC 31.1 GM/DL 32.0-36.0 L (BEAKER) (test code = 752) RED CELL DISTRIBUTION WIDTH 17.8 % 12.0-15.0 H (BEAKER) (test code = 412) PLATELET COUNT (BEAKER) (test 821 K/CU MM 150-430 H code = 756) MEAN PLATELET VOLUME (BEAKER) 9.3 fL 6.0-11.5 (test code = 754) NUCLEATED RED BLOOD CELLS 0 /100 WBC 0-0 (BEAKER) (test code = 413) NEUTROPHILS RELATIVE PERCENT 77 % (BEAKER) (test code = 429) LYMPHOCYTES RELATIVE PERCENT 13 % (BEAKER) (test code = 430) MONOCYTES RELATIVE PERCENT 9 % (BEAKER) (test code = 431) EOSINOPHILS RELATIVE PERCENT 0 % (BEAKER) (test code = 432) BASOPHILS RELATIVE PERCENT 0 % (BEAKER) (test code = 437) NEUTROPHILS ABSOLUTE COUNT 10.36 K/ L 1.80-8.00 H (BEAKER) (test code = 670) LYMPHOCYTES ABSOLUTE COUNT 1.77 K/ L 1.48-4.50 (BEAKER) (test code = 414) MONOCYTES ABSOLUTE COUNT (BEAKER) 1.15 K/ L 0.00-1.30 (test code = 415) EOSINOPHILS ABSOLUTE COUNT 0.01 K/ L 0.00-0.50 (BEAKER) (test code = 416) BASOPHILS ABSOLUTE COUNT (BEAKER) 0.03 K/ L 0.00-0.20 (test code = 417) IMMATURE GRANULOCYTES-RELATIVE 1 % 0-0 H PERCENT (BEAKER) (test code = 2801) RAD, CHEST, PA OR AP, 1 [id number] 02:50:00VAT/Infusion Therapy Nurse to Call Radiology Department when patient is readyReason for exam:->[facility] : 1950 Sex: FFINAL REPORT RAD, CHEST, PA OR AP, 1 VIEW CLINICAL HISTORY: PICC TECHNIQUE: Single view of the chest. COMPARISON: August 22, 2021 IMPRESSION: Right PICC tip overlies the cavoatrialjunction. Interstitial thickening without focal lung consolidation or pleural effusion is stable in appearance. No pneumothorax. Cardiomediastinal silhouette is stable in appearance. Aortic calcifications are present. Stable osseous structures. Signed: Dontrell Gusman MDReport Verified Date/Time: 08/23/2021 02:50:11 POCT-GLUCOSE [id number] 00:24:43 Test Item Value Reference Range Interpretation Comments POC-GLUCOSE METER 108 mg/dL 70-110 : TESTED A T SLSL 1317 (BEAKER) (test code [facility] [address], = 1538) [facility] 77 478: Store Mgr/Techni nena ID = [id number] for Alejandra Bangura BASIC METABOLIC [id number] 22:09:58 Test Item Value Reference Range Interpretation Comments SODIUM (BEAKER) 139 meq/L 135-148 (test code = 381) POTASSIUM (BEAKER) 2.9 meq/L 3.6-5.5 L (test code = 379) CHLORIDE (BEAKER) 105 meq/L 98-106 (test code = 382) CO2 (BEAKER) (test 24 meq/L 20-29 code = 355) BLOOD UREA NITROGEN 14 mg/dL 10-26 (BEAKER) (test code = 354) CREATININE (BEAKER) 0.45 mg/dL 0.50-1.20 L (test code = 358) GLUCOSE RANDOM 107 mg/dL 70-110 (BEAKER) (test code = 652) CALCIUM (BEAKER) 7.6 mg/dL 8.5-10.5 L (test code = 697) EGFR (BEAKER) (test 137 mL/min/1.73 ESTIM ATED GFR IS code = 1092) sq m NOT ACCURATE CREATININE CLEARANCE IN PREDICTING GLOMERULAR FILTRATION RATE . ESTIMATED GFR I S NOT APPLICABLE FOR DIALYSIS PATIEN TS. Store Mgr ID - ERINYOperator ID - ERINYOperator ID - ERINYOperator ID - ERINYOperator ID - ERINYOperator ID - ERINYOperator ID - ERINYOperator ID - ERINYOperator ID - ERINYOperator ID - ERINYOperator ID- ERINYOperator ID - ERINYOperator ID - ERINYHEMOGLOBIN AND [id number] 21:54:52 Test Item Value Reference Range Interpretation Comments HEMOGLOBIN (BEAKER) (test code = 8.2 GM/DL 12.0-15.5 L 410) HEMATOCRIT (BEAKER) (test code = 25.7 % 36.0-46.0 L 411) POCT-GLUCOSE [id number] 18:15:13 Test Item Value Reference Range Interpretation Comments POC-GLUCOSE METER 102 mg/dL 70-110 : TESTED A T [facility] 1317 (BEAKER) (test code [address], = 1538) [facility] 77 478: Store Mgr/Techni nena ID = [id number] for Ali, Lauren VENOUS DOPPLER ARMS, [id number] 17:41:00Reason for exam:->swelling [facility] : 1950 Sex: FFINAL REPORT Doppler ultrasound of the lateral lower extremity dated 2Comment: Color Doppler and spectral analysis of both lower extremities were obtained. There was no deep venous obstruction in the distal external iliac, common femoral, profunda femoral, femoral, popliteal or posterior tibial veins. Compression was utilized and demonstrated normal augmentation in both lower extremities. There was no venous obstruction in the greater saphenous vein. Impression: No deep venous thrombosis in either lower extremity. Bilateral upper extremity venous Doppler dated 08/22/2021. COMMENT: Doppler ultrasound examination of the bilateral upper extremity was performed. The bilateral radial, ulnar, brachial, basilic, cephalic and subclavian veins are patent without filling defect. There is normal compressibility and augmentation in the veins of both upper extremities. IMPRESSION: No venous thrombosis in either upper extremity. Signed: Shabnam Montemayor MDReport Verified Date/Time: 08/22/2021 17:41:03 Reading Location: [address] Body Reading Room VENOUS DOPPLER LEGS, [id number] 17:41:00Reason for exam:->swelling [facility] : 1950 Sex: FFINAL REPORT Doppler ultrasound of the lateral lower extremity dated 08/22/2021omment: Color Doppler and spectral analysis of both lower extremities were obtained. There was no deep venous obstruction in the distal external iliac, common femoral, profunda femoral, femoral, popliteal or posterior tibial veins. Compression was utilized and demonstrated normal augmentation in both lower extremities. There was no venous obstruction in the greater saphenous vein. Impression: No deep venous thrombosis in either lower extremity. Bilateral upper extremity venous Doppler dated 08/22/2021. COMMENT: Doppler ultrasound examination of the bilateral upper extremity was performed. The bilateral radial, ulnar, brachial, basilic, cephalic and subclavian veins are patent without filling defect. There is normal compressibility and augmentation in the veins of both upper extremities. IMPRESSION: No venous thrombosis in either upper extremity. Signed: Shabnam Montemayor Verified Date/Time: 08/22/2021 17:41:03 Reading Location: [address] Body Reading Room POCT-GLUCOSE [id number] 12:26:42 Test Item Value Reference Range Interpretation Comments POC-GLUCOSE METER 97 mg/dL 70-110 : TESTED A T [facility] 1317 (BEAKER) (test code = [address], 1538) [facility] 77 478: Store Mgr/Techni nena ID = [id number] for Ali, Lauren RAD, CHEST, 1 VIEW, NON [id number] 07:28:00Reason for exam:->sobShould this be performed at the bedside?->Yes [facility] 1950 Sex: FFINAL REPORT INDICATION: sob COMPARISON: None TECHNIQUE: Single frontal view of the chest. FINDINGS: Lungs and pleura: Clear lungs. No effusion.Heart and mediastinum: Normal heart size. Unremarkable mediastinal contours.Osseous structures: No acute abnormality.Other: Overlying leads. IMPRESSION: No acute intrathoracic abnormality. Signed: Vandana Mccurdy Verified Date/Time: 08/22/2021 07:28:20 B-TYPE NATRIURETIC FACTOR (BNP)2021-08-22 06:14:08 Test Item Value Reference Range Interpretation Comments B-TYPE NATRIURETIC PEPTIDE (BEAKER) 283 pg/mL 0-100 H (test code = 700) Store Mgr ID - LITOTROPONIN [id number] 06:13:25 Test Item Value Reference Range Interpretation Comments TROPONIN I (BEAKER) (test code = 0.03 ng/mL 0.00-0.15 397) Troponin I (TnI) levels must be interpreted in the context of the presenting symptoms and the clinical findings. Elevated TnI levels indicate myocardial damage, but are not specific for ischemic heart disease. Elevated TnI levels are seen in patients with other cardiac conditions (including myocarditis and congestive heart failure), and slight TnI elevations occur in patients with other conditions, including sepsis, renal failure, acidosis, acute neurological disease, and persistent tachyarrhythmia.Store Mgr ID - LITOTSH/FREE T4 IF [id number] 05:56:43 Test Item Value Reference Range Interpretation Comments THYROID STIMULATING HORMONE 4.680 uIU/mL 0.350-5.500 (BEAKER) (test code = 772) Store Mgr ID - LITOCOMPREHENSIVE METABOLIC [id number] 05:51:34 Test Item Value Reference Range Interpretation Comments TOTAL PROTEIN 5.8 gm/dL 6.0-8.5 L (BEAKER) (test code = 770) ALBUMIN (BEAKER) 2.7 g/dL 3.5-5.0 L (test code = 1145) ALKALINE PHOSPHATASE 103 U/L 30-115 (BEAKER) (test code = 346) BILIRUBIN TOTAL 0.2 mg/dL 0.1-1.2 (BEAKER) (test code = 377) SODIUM (BEAKER) (test 139 meq/L 135-148 code = 381) POTASSIUM (BEAKER) 3.0 meq/L 3.6-5.5 L (test code = 379) CHLORIDE (BEAKER) 105 meq/L 98-106 (test code = 382) CO2 (BEAKER) (test 23 meq/L 20-29 code = 355) BLOOD UREA NITROGEN 19 mg/dL 10-26 (BEAKER) (test code = 354) CREATININE (BEAKER) 0.55 mg/dL 0.50-1.20 (test code = 358) GLUCOSE RANDOM 130 mg/dL 70-110 H (BEAKER) (test code = 652) CALCIUM (BEAKER) 8.2 mg/dL 8.5-10.5 L (test code = 697) AST (SGOT) (BEAKER) 11 U/L 5-40 (test code = 353) ALT (SGPT) (BEAKER) 10 U/L 5-50 (test code = 347) EGFR (BEAKER) (test 108 ESTIMATE D GFR IS code = 1092) mL/min/1.73 sq NOT ACCURA TE m CREATININE CLEARANCE IN PREDICTING GLOMERULAR FILTRATION RATE . ESTIMATED GFR I S NOT APPLICABLE FOR DIALYSIS PATIEN TS. Store Mgr ID - LITOOperator ID - LITOOperator ID - LITOOperator ID - LITOOperator ID - LITOOperator ID - LITOOperator ID - LITOOperator ID - LITOOperator ID - LITOOperator ID - LITOOperator ID - LITOOperator ID - LITOOperator ID - LITOOperator ID - LITOOperator ID - LITOOperator ID - LITOOperator ID - L ITOOperator ID - LITOOperator ID - LITOBlood gas, [id number] 05:47:31 Test Item Value Reference Range Interpretation Comments pH, Arterial (test code 7.50 7.35-7.45 H = 2744-1) pCO2, Arterial (test 28 See_Comment L [Autom ated code = 2019-8) message] The system which generated this result transmitted reference range : 35 - 45 mm Hg. The reference range was not used to interpret this result as normal/abnormal . pO2, Arterial (test 89 See_Comment [Automa roslyn code = 2703-7) message] The system which generated this result transmitted reference range : 80 - 90 mm Hg. The reference range was not used to interpret this result as normal/abnormal . O2 Sat, Arterial (test 97.5 % 96.0-97.0 H code = 2708-6) HCO3, Arterial (test 21 mmol/L 21-29 code = 1960-4) Base Excess, Arterial -1.6 mmol/L -2.0-3.0 (test code = 1925-7) Patient Temperature 37.0 (test code = 8310-5) FIO2 (test code = 1819) 21 Lab Interpretation Abnormal (test code = 64506-5) [facility] [id number] 05:47:31 Test Item Value Reference Range Interpretation Comments pH, Arterial (test code 7.50 7.35-7.45 H = 2744-1) pCO2, Arterial (test 28 See_Comment L [Autom ated code = 2019-8) message] The system which generated this result transmitted reference range : 35 - 45 mm Hg. The reference range was not used to interpret this result as normal/abnormal . pO2, Arterial (test 89 See_Comment [Automa roslyn code = 2703-7) message] The system which generated this result transmitted reference range : 80 - 90 mm Hg. The reference range was not used to interpret this result as normal/abnormal . O2 Sat, Arterial (test 97.5 % 96.0-97.0 H code = 2708-6) HCO3, Arterial (test 21 mmol/L 21-29 code = 1960-4) Base Excess, Arterial -1.6 mmol/L -2.0-3.0 (test code = 1925-7) Patient Temperature 37.0 (test code = 8310-5) FIO2 (test code = 1819) 21 Lab Interpretation Abnormal (test code = 21029-0) [facility], [id number] 05:47:31 Test Item Value Reference Range Interpretation Comments PH ARTERIAL (BEAKER) (test code = 7.50 7.35-7.45 H 383) PCO2 ARTERIAL (BEAKER) (test code 28 mm Hg 35-45 L = 384) PO2 ARTERIAL (BEAKER) (test code 89 mm Hg 80-90 = 385) O2 SATURATION ARTERIAL (BEAKER) 97.5 % 96.0-97.0 H (test code = 386) HCO3 ARTERIAL (BEAKER) (test code 21 mmol/L 21-29 = 388) BASE EXCESS ARTERIAL (BEAKER) -1.6 mmol/L -2.0-3.0 (test code = 387) PATIENT TEMPERATURE (BEAKER) 37.0 (test code = 1818) FIO2 (BEAKER) (test code = 1819) 21.0 Urinalysis w/Microscopic + Reflex to [id number] 05:42:51 Test Item Value Reference Range Interpretation Comments Color, UA (test code Yellow = 5778-6) Clarity, UA (test Slightly Cloudy code = 5767-9) Specific [place], UA 1.015 1.001-1.035 (test code = 5811-5) pH, UA (test code = 6.5 5.0-8.0 5803-2) Protein, UA (test Trace Negative A code = 14716-5) Glucose, UA (test Negative Negative code = 365) Ketones, UA (test Negative Negative code = 2514-8) Bilirubin, UA (test Negative Negative code = 95984-6) Blood, UA (test code Moderate Negative A = 84245-8) Nitrite, UA (test Negative Negative code = 5802-4) Leukocytes, UA (test Large Negative A code = 5799-2) Urobilinogen, UA 0.2 mg/dL 0.2-1.0 (test code = 67560-5) Bacteria, UA (test Moderate code = 71935-9) Mucus (test code = Occasional 8247-9) RBC, UA (test code = 20-50 See_Comment [Autom ated 799-7) message] The system which generated this result transmitted reference range : /HPF. The reference range was not used to interpret this result as normal/abnormal . WBC, UA (test code = >100 See_Comment [Autom ated 98424-4) message] The system which generated this result transmitted reference range : /HPF. The reference range was not used to interpret this result as normal/abnormal . SQUAMOUS EPITHELIAL <5 See_Comment [Automa roslyn (test code = 41174-8) messag e] The system which generated this result transmitted reference range : /HPF. The reference range was not used to interpret this result as normal/abnormal . Specimen Source (test code = 2795) Lab Interpretation Abnormal (test code = 76745-4) [facility] Center[facility] + Reflex to Culture 2021-08-22 05:42:51 Test Item Value Reference Range Interpretation Comments Color, UA (test code Yellow = 5778-6) Clarity, UA (test Slightly Cloudy code = 5767-9) Specific [place], UA 1.015 1.001-1.035 (test code = 5811-5) pH, UA (test code = 6.5 5.0-8.0 5803-2) Protein, UA (test Trace Negative A code = 52305-1) Glucose, UA (test Negative Negative code = 365) Ketones, UA (test Negative Negative code = 2514-8) Bilirubin, UA (test Negative Negative code = 10540-7) Blood, UA (test code Moderate Negative A = 69879-6) Nitrite, UA (test Negative Negative code = 5802-4) Leukocytes, UA (test Large Negative A code = 5799-2) Urobilinogen, UA 0.2 mg/dL 0.2-1.0 (test code = 62069-8) Bacteria, UA (test Moderate code = 81518-0) Mucus (test code = Occasional 8247-9) RBC, UA (test code = 20-50 See_Comment [Autom ated 799-7) message] The system which generated this result transmitted reference range : /HPF. The reference range was not used to interpret this result as normal/abnormal . WBC, UA (test code = >100 See_Comment [Autom ated 05709-4) message] The system which generated this result transmitted reference range : /HPF. The reference range was not used to interpret this result as normal/abnormal . SQUAMOUS EPITHELIAL <5 See_Comment [Automa roslyn (test code = 74294-8) messag e] The system which generated this result transmitted reference range : /HPF. The reference range was not used to interpret this result as normal/abnormal . Specimen Source (test code = 2795) Lab Interpretation Abnormal (test code = 55255-5) [facility]FLEX UR[facility] [id number] 05:42:51 Test Item Value Reference Range Interpretation Comments COLOR (BEAKER) (test code = Yellow 470) CLARITY (BEAKER) (test code = Slightly Cloudy 469) SPECIFIC GRAVITY UA (BEAKER) 1.015 1.001-1.035 (test code = 468) PH UA (BEAKER) (test code = 6.5 5.0-8.0 467) PROTEIN UA (BEAKER) (test Trace Negative A code = 464) GLUCOSE UA (BEAKER) (test Negative Negative code = 365) KETONES UA (BEAKER) (test Negative Negative code = 371) BILIRUBIN UA (BEAKER) (test Negative Negative code = 462) BLOOD UA (BEAKER) (test code Moderate Negative A = 461) NITRITE UA (BEAKER) (test Negative Negative code = 465) LEUKOCYTE ESTERASE UA Large Negative A (BEAKER) (test code = 466) UROBILINOGEN UA (BEAKER) 0.2 mg/dL 0.2-1.0 (test code = 463) BACTERIA (BEAKER) (test code Moderate = 517) MUCUS (BEAKER) (test code = Occasional 1574) RBC UA-MANUAL (BEAKER) (test 20-50 /HPF code = 1659) WBC UA-MANUAL (BEAKER) (test >100 /HPF code = 1661) SQUAMOUS EPITHELIAL MANUAL <5 /HPF (BEAKER) (test code = 1663) SOURCE(BEAKER) (test code = 2795) [id number] 05:39:11 Test Item Value Reference Range Interpretation Comments MAGNESIUM (BEAKER) (test code = 1.8 mg/dL 1.5-3.0 627) Store Mgr ID - LITOOperator ID - LITOOperator ID - LITOOperator ID - UNRULY [id number] 05:36:59 Test Item Value Reference Range Interpretation Comments PHOSPHORUS (BEAKER) (test code = 2.1 mg/dL 2.5-4.5 L 604) Store Mgr ID - LITOPROTHROMBIN [id number] 05:36:14 Test Item Value Reference Range Interpretation Comments PROTIME (BEAKER) 12.7 seconds 9.3-12.0 H Final Infor mation (test code = 759) (Auto Outp ut) INR (BEAKER) (test 1.17 See_Comment Final Inf ormation code = 370) (Auto Output) [Automated mess age] The system [employer] generated this result transmitted ref erence range: <=5.90. The reference range was not used to int erpret this result as normal/abnormal . RECOMMENDED COUMADIN/WARFARIN INR THERAPY RANGESSTANDARD DOSE: 2.0 - 3.0 Includes: PROPHYLAXIS for venous thrombosis, systemic embolization; TREATMENT for venous thrombosis and/or pulmonary embolus.HIGH RISK: Target INR is 2.5-3.5 for patients with mechanical heart valves.LACTIC ACID, [id number] 05:33:52 Test Item Value Reference Range Interpretation Comments LACTATE BLOOD 1.49 mmol/L See_Comment [Automated me ssage] VENOUS (2) (BEAKER) The syst em which (test code = 7841) generated this result transmitted ref erence range: 0.50-<2. 00. The reference range was not used to interpr et this result as normal/abnormal . Store Mgr ID - LITOOperator ID - LITOOperator ID - LITOOperator ID - LITOCBC W/PLT COUNT & AUTO [id number] 05:27:26 Test Item Value Reference Range Interpretation Comments WHITE BLOOD CELL COUNT (BEAKER) 21.1 K/ L 4.0-10.0 H (test code = 775) RED BLOOD CELL COUNT (BEAKER) 3.63 M/ L 4.00-5.00 L (test code = 761) HEMOGLOBIN (BEAKER) (test code = 9.5 GM/DL 12.0-15.5 L 410) HEMATOCRIT (BEAKER) (test code = 30.1 % 36.0-46.0 L 411) MEAN CORPUSCULAR VOLUME (BEAKER) 82.9 fL 82.0-99.0 (test code = 753) MEAN CORPUSCULAR HEMOGLOBIN 26.2 pg 27.0-33.0 L (BEAKER) (test code = 751) MEAN CORPUSCULAR HEMOGLOBIN CONC 31.6 GM/DL 32.0-36.0 L (BEAKER) (test code = 752) RED CELL DISTRIBUTION WIDTH 17.7 % 12.0-15.0 H (BEAKER) (test code = 412) PLATELET COUNT (BEAKER) (test 884 K/CU MM 150-430 H code = 756) MEAN PLATELET VOLUME (BEAKER) 9.1 fL 6.0-11.5 (test code = 754) NUCLEATED RED BLOOD CELLS 0 /100 WBC 0-0 (BEAKER) (test code = 413) NEUTROPHILS RELATIVE PERCENT 84 % (BEAKER) (test code = 429) LYMPHOCYTES RELATIVE PERCENT 10 % (BEAKER) (test code = 430) MONOCYTES RELATIVE PERCENT 6 % (BEAKER) (test code = 431) EOSINOPHILS RELATIVE PERCENT 0 % (BEAKER) (test code = 432) BASOPHILS RELATIVE PERCENT 0 % (BEAKER) (test code = 437) NEUTROPHILS ABSOLUTE COUNT 17.67 K/ L 1.80-8.00 H (BEAKER) (test code = 670) LYMPHOCYTES ABSOLUTE COUNT 2.02 K/ L 1.48-4.50 (BEAKER) (test code = 414) MONOCYTES ABSOLUTE COUNT (BEAKER) 1.20 K/ L 0.00-1.30 (test code = 415) EOSINOPHILS ABSOLUTE COUNT 0.00 K/ L 0.00-0.50 (BEAKER) (test code = 416) BASOPHILS ABSOLUTE COUNT (BEAKER) 0.03 K/ L 0.00-0.20 (test code = 417) IMMATURE GRANULOCYTES-RELATIVE 1 % 0-0 H PERCENT (BEAKER) (test code = 2801) COVID 19 Asymptomatic IH [id number] 13:55:00 Test Item Value Reference Range Interpretation Comments COVID 19 NEGATIVE Negative "Negative resul ts from Asymptomatic IH AG patients with symptom (test code = onset beyondfiv e days, COVNONPUIAG) should be treat ed as presumptive, andconfirmation with a molecular assay [...] virus (antigen) in the sample." BASIC METABOLIC [id number] 05:53:00 Test Item Value Reference Range Interpretation [...] 9.9 MG/DL 8.4-10.2 N CA) CBC W/AUTO [id number] 05:45:00 Test Item Value Reference Range Interpretation [...] = 0.00 K/mm3 0.0-0.1 N NRBC#) PLATELET [id number] 05:55:00 Test Item Value Reference Range Interpretation Comments PLATELET COUNT (test code = PLT) 561 K/MM3 129-368 H [id number] 05:45:00 Test Item Value Reference Range Interpretation Comments HEMOGLOBIN (test code = HGB) 9.9 G/DL 11.2-14.9 L - XR HIP W/PEL UNI 2+V [id number] 16:19:00 [facility] 1950 Sex: F Patient Name: RORY MATHEWS Unit No: [id number] EXAMS: CPT CODE: [id number] XR HIP W/PEL UNI 2+[place] [address] X-ray left hip. INDICATION: Pain FINDINGS: No priors. No evidence of an acute fracture or dislocation. Femoral head contour is well preserved. Mild to moderate bilateral joint space narrowing. No significant soft tissue abnormality seen. IMPRESSION: 1. No acute osseous abnormality 2. 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 at 1001 Reported and signed by: Ambrosio Molina M.D. CC: Technologist: Sydney Castillo RT Transcrpt Date/Tm/Trnsp: 03/27/2021 (0794) Ham.RK5 Orig Print D/T: S: 03/27/2021 (4152) [facility] NAME: RORY MATHEWS [address] [facility] PHYS: Josfea Rhoades MD [place] [address] : 1950 AGE: 70 SEX: F LOC: Z.313 A PHONE #: [phone] EXAM DATE: 03/27/2021 STATUS: ADM IN FAX #: [phone] RADIOLOGY NO: PAGE 1 Signed Report BUN [id number] 16:37:00 Test Item Value Reference Range Interpretation Comments BLOOD UREA NITROGEN 21 MG/DL 7-17 H (test code = BUN) GLOMERULAR FILTRATION > 60 Report ing units: RATE (test code = GFR) ml/mi n/1.73 m2 (Modified MDRD Formula)Referen ce Range: > or = 6 0 ml/min/1.73 m2 CREATININE (test code 0.50 MG/DL 0.52-1.04 L = CREAT) PLATELET [id number] 10:05:00 Test Item Value Reference Range Interpretation Comments PLATELET COUNT (test code = PLT) 661 K/MM3 129-368 H [id number] 05:40:00 Test Item Value Reference Range Interpretation Comments HEMOGLOBIN (test code = HGB) 10.4 G/DL 11.2-14.9 L - XR HIP W/PEL UNI 2+V [id number] 14:38:00 [facility] : 1950 Sex: F Patient Name: RORY MATHEWS Unit No: [id number] EXAMS: CPT CODE: [id number] XR HIP W/PEL UNI 2+[place] [address] X-ray right hip. INDICATION: Pain FINDINGS: No priors. No evidence of an acute fracture or dislocation.Femoral head contour is well preserved. Mild to moderate joint space narrowing. No significant soft tissue abnormality seen. IMPRESSION: 1. No acute osseous abnormality. 2. Mild to moderate arthritis. at 1438 Reported and signed by: Ambrosio Molina M.D. CC: Namrata Parker MD Technologist: Sydney Castillo RT Transcrpt Date/Tm/Trnsp: 03/22/2021 (1438) MaryRK5 Orig Print D/T: S: 03/22/2021 (1441) [facility] NAME: RORY MATHEWS [address] [address] PHYS: [id number] - [place] [address] : 1950 AGE: 70 SEX: F LOC: Z.313 A PHONE #: [phone] EXAM DATE: 03/22/2021 STATUS: ADM IN FAX #: [phone] RADIOLOGY NO: PAGE 1 Signed ReportGLUCOSE BEDSIDE [id number] 11:50:00 Test Item Value Reference Range Interpretation Comments GLUCOSE BEDSIDE TESTING (test code 104 MG/DL 60-99 H = GLUBED) BASIC METABOLIC [id number] 16:41:00 Test Item Value Reference Range Interpretation [...] AT 1426 BY Mary Gonzales AnCBC W/AUTO [id number] 16:23:00 Test Item Value Reference Range Interpretation [...] 1427 BY Mary Gonzales 19 Asymptomatic IH [id number] 18:04:00 Test Item Value Reference Range Interpretation Comments COVID 19 NEGATIVE Negative "Negative resul ts from Asymptomatic IH AG patients with symptom (test code = onset beyondfiv e days, COVNONPUIAG) should be treat ed as presumptive, andconfirmation with a molecular assay [...] virus (antigen) in the sample." BASIC METABOLIC [id number] 10:27:00 Test Item Value Reference Range Interpretation [...] 8.4-10.2 N CA) - CT HEAD/BRAIN W/O [id number] 10:07:00 [facility] : 1950 Sex: F Patient Name: RORY MATHEWS Unit No: [id number] EXAMS: CPT CODE: [id number] CT HEAD/BRAIN W/O CONT 79899 EXAM: CT BRAIN WITHOUT CONTRAST INDICATION: CVA COMPARISON: March 05, 2021 TECHNIQUE: Routine axial CT images of the brain were obtained without venous contrast. IV contrast: None DLP: 1077.69 mGy-cm FINDINGS: There are areas of low attenuation with sulcal effacement involving the bilateral frontal, parietal and occipital lobes consistent with evolving subacute ischemia. No hemorrhagic transformationis identified. The ventricles and sulci are normal [...] technique. at 1007 Reported and signed by: Kelsey Lake MD CC: Kanwal Carrillo MD; Josefa De La Cruz; Kevan Ball MD Technologist: Carlos Eduardo Fine, RT(R); Alicia CTDI: DLP: Trnscrpt: 03/09/2021 (1007) 16 [facility] NAME: RORY MATHEWS PHYS: LELE Daniel,[place] [address] : 1950 AGE: 70 SEX: F LOC: Z.534 A PHONE #: [phone] EXAM DATE: 03/09/2021 STATUS: ADM IN FAX #: [phone] RAD #: D/C DT PAGE 1 Signed Report Patient Name: RORY MATHEWS Unit No: [id number] EXAMS: CPT CODE: [id number] CT HEAD/BRAIN W/O CONT 63285 (Continued) Orig Print D/T: S: 03/09/2021 (1010) [facility] NAME: RORY MATHEWS PHYS: LELE Daniel,[place], [place] [address] : 1950 AGE: 70 SEX: F LOC: Z.534 A PHONE #: [phone] EXAM DATE: 03/09/2021 STATUS: ADM IN FAX #: [phone] RAD #: D/C DT PAGE 2 Signed ReportCBC W/AUTO [id number] 10:01:00 Test Item Value Reference Range Interpretation [...] = 0.00 K/mm3 0.0-0.1 N NRBC#) URINALYSIS [id number] 14:12:00 Test Item Value Reference Range Interpretation [...] = UACULT) SOURCE OF URINE: STRAIGHT CATHETERUA [id number] 14:12:00 Test Item Value Reference Range Interpretation Comments UA RBC (test code = RBCU) 3-5 RBC/HPF 0-3 A UA WBC (test code = XWBCU) 3-5 WBC/HPF 0-5 UA EPITHELIAL CELLS (test code = RARE EPI/HPF FEW EPIU) UA BACTERIA (test code = XBACU) FEW NONE UA MUCUS (test code = MUCU) SLIGHT #/LPF NONE SOURCE OF URINE: STRAIGHT CATHETER- XR CHEST [id number] 10:45:00 [facility] : 1950 Sex: F Patient Name: RORY MATHEWS Unit No: [id number] EXAMS: CPT CODE: [id number] XR CHEST 1V 63595 HISTORY: Suspected pneumonia Comparison to March 04, 2021 Location code: B2 FINDINGS: Frontal view of the chest demonstrates normal cardiomediastinal silhouette. The trachea is midline. The lungs are clear. Thereis no effusion or pneumothorax. The bones are intact. IMPRESSION: No acute pulmonary process. at 1045 Reported and signed by: Ambrosio Molina M.D.CC: Kanwal Carrillo MD; Mathieu Raygoza MD; Josefa De La Cruz; Kevan Ball MD Technologist: Sydney Castillo RT Transcrpt Date/Tm/Trnsp: 03/08/2021 (1045) [id number] Orig Print D/T: S: 03/08/2021 (5536) [facility] NAME: RORY MATHEWS [address] [address] PHYS: [id number] - [place] [address] : 1950 AGE: 70 SEX: F LOC: Z.534 A PHONE #: [phone] EXAM DATE: 03/08/2021 STATUS: ADM IN FAX #: [phone] RADIOLOGY NO: PAGE 1 Signed ReportBASIC METABOLIC [id number] 06:31:00 Test Item Value Reference Range Interpretation [...] 9.5 MG/DL 8.4-10.2 N CA) CBC W/AUTO [id number] 06:09:00 Test Item Value Reference Range Interpretation [...] = 0.00 K/mm3 0.0-0.1 N NRBC#) VITAMIN [id number] 21:45:00 Test Item Value Reference Range Interpretation Comments VITAMIN B12 (test code = VITB12) 770 pg/mL 239-931 N FOLIC ACID BY [id number] 21:45:00 Test Item Value Reference Range Interpretation Comments FOLIC ACID BY WILFRIDO > 20.0 ng/mL REFERENCE VALUES: (test code = FOLR) NORMAL: 2 .76 - >20 ng/ML DEFICIENT : 1.04 - 2.79 ng/ML THYROID STIMULATING [id number] 21:45:00 Test Item Value Reference Range Interpretation Comments THYROID STIMULATING 1.890 MIU/L 0.465-4.68 N Please b e aware that HORMONE (test code = bias re sults for TSH TSH) may occur forpa tient who are taking Biotin suppleme nts. [id number] 20:59:00 Test Item Value Reference Range Interpretation Comments AMMONIA (test code = AMM) 14 mcMOL/L 9-30 N [id number] 20:47:00 Test Item Value Reference Range Interpretation Comments AMMONIA (test code = AMM) mcMOL/L 9-30 T4 [id number] 20:47:00 Test Item Value Reference Range Interpretation Comments T4 FREE (test code = T4F) 1.7 NG/DL 0.78-2.19 N VITAMIN D [id number] 20:47:00 Test Item Value Reference Range Interpretation Comments VITAMIN D 25-HYDROXY (test code = 28.1 ng/mL 30.0-100.0 L VITD25) GLUCOSE BEDSIDE [id number] 20:13:00 Test Item Value Reference Range Interpretation Comments GLUCOSE BEDSIDE TESTING (test code 211 MG/DL 60-99 H = GLUBED) BASIC METABOLIC [id number] 06:28:00 Test Item Value Reference Range Interpretation [...] LDL (test < 30 MG/DL 0-99 N OPTIM AL.........<100 code = LDL) mg/dLNEAR OPTIMAL/ABOVE OPTIMAL........ .100-1 29 mg/dL BORDER LINE HIGH.........13 0-159 mg/dL HIGH.........16 0-189 mg/dL VERY HIGH.........>/ = 190 mg/dL CBC W/AUTO [id number] 05:55:00 Test Item Value Reference Range Interpretation [...] 0.00 K/mm3 0.0-0.1 N NRBC#) BASIC METABOLIC [id number] 17:05:00 Test Item Value Reference Range Interpretation [...] = 9.7 MG/DL 8.4-10.2 CA) CBC W/AUTO [id number] 16:55:00 Test Item Value Reference Range Interpretation [...] code = 0.00 K/mm3 0.0-0.1 N NRBC#) ARTERY,[id number] 17:53:00 Test Item Value Reference Range Interpretation Comments ARTERY,PLAQUE (test code = ART) --------RUN DATE: 08/25/20 [facility] PAGE 1 RUN TIME: 1753 Specimen Inquiry RUN USER: INTERFACE --------PATIENT: MATTHEW MATHEWS LOC: JACKIE U #: [id number] AGE/SX: 70/F ROOM: [facility] RE08/22/20REG DR: Nick Pike MD : 46 BED: A DIS: 08/25/20 STATUS: DIS IN TLOC: -------- SPEC #: [id number] RECD: 08/22/20 STATUS: JORDYN DUKES #: [id number] TREY: 08/22/[address] [facility] DR: Nick Pike MD ENTERED: 08/22/20 SP TYPE: ARTERY, PL OTHR DR: Kanwal Carrillo MD, Nioti R MD Pepper, Gregory S MDORDERED: DECAL, SURG PATH LVL 3 CODES: [id number] - ARTERY, NOS [id number] [id number] - ARTERY, NOS PLAQUE, NOS [id number] [id number] - ARTERY, NOS ATHEROSCLEROSIS COPIES TO: Kanwal Carrillo MD [address] [place] [address] [email or web address] [address] [place] [address] [place] [address] [facility] [address] [place] [address] [place] [address] [facility] [address] [place] [address] ICD CODES: 440 - PROCEDURES: DECAL (08/22/20) SURG PATH LVL 3 (08/22/20) TISSUES: A. ARTERY, NOS - LT CAROTID PLAQUE CPT CODES CPT CODE(S): 49263 , 42074 , , , , , CONTINUED ON NEXT PAGE --------RUN DATE: 08/25/20 [facility] PAGE 2 RUN TIME: 1753 Specimen Inquiry RUN USER: INTERFACE --------SPEC #: [id number] PATIENT: MATTHEW MATHEWS #[id number] (Continued) FINAL DIAGNOSIS Left carotid plaque, endarterectomy: CALCIFIED ATHEROSCLEROTIC PLAQUE GROSS DESCRIPTION Left carotid plaque. Received is a yellow-pinzon, partially V-shaped segment of plaque (4.3 x 1 x 0.8 cm), sectioned to reveal a heavily calcified cut surface. A And P Technician sections are submitted for decalcification as A1. /tc/doreen MICROSCOPIC DESCRIPTION Left carotid plaque. The microscopic description is incorporated into the final diagnosis. /doreen Signed SIGNATURE ON FILE MarcelleJuan 08/25/20 1753 -------- END OF REPORT YADIRA W/AUTO [id number] 04:25:00 Test Item Value Reference Range Interpretation [...] (test code = 0.00 K/mm3 0.0-0.1 N [facility]#) - XR CHEST [id number] 09:00:00 [facility] 1950 Sex: F Patient Name: MATTHEW MATHEWS Unit No: [id number] EXAMS: CPT CODE: [id number] XR CHEST 1V 87787 EXAM: Portable chest one view. Location code:J9 HISTORY: Dyspnea COMPARISON: 08/22/2020 COMMENT: Stable position of right IJ catheter and left IJ sheath. The lungs and pleural spaces are clear. Lungs are normally expanded. The aorta, pulmonary vasculature and mediastinum are within normal limits. Cardiac silhouette is normal in size and contour. Visualized skeletal structures are unremarkable. IMPRESSION: No active disease in the chest. at 0900 Reported and signed by: Guillermo Marrufo M.D. CC: Kanwal Carrillo MD Technologist: Jeremías Sykes, RT(R) Transcrpt Date/Tm/Trnsp: 08/23/2020 (0900) Ham.RR16 Orig Print D/T: S: 08/23/2020 (0903) [facility] NAME: MATTHEW MATHEWS [id number] PHYS: [place] [address] : 1950 AGE: 70 SEX: F LOC: Z.SI05 A PHONE #: [phone] EXAM DATE: 08/23/2020 STATUS: ADM IN FAX #: [phone] RADIOLOGY NO: PAGE 1 Signed ReportCBC W/AUTO [id number] 06:13:00 Test Item Value Reference Range Interpretation [...] = 0.00 K/mm3 0.0-0.1 N NRBC#) DIFFERENTIAL [id number] 06:13:00 Test Item Value Reference Range Interpretation Comments RBC MORPHOLOGY REQUIRED (test code = NORMAL RBCM) PLATELET ESTIMATE (test code = ADEQUATE ADEQUATE PLTEST) PLATELET MORPHOLOGY (test code = NORMAL NORMAL PLTMORPH) GLYCOSYLATED HEMOGLOBIN [id number] 05:34:00 Test Item Value Reference Range Interpretation Comments GLYCOSYLATED 5.4 % 4.8-5.9 N Any condition t hat HEMOGLOBIN (HA1C) shortens e rythocyte (test code = survival or dec reasesmean GLYHGB) erythrocyte age (e.g., recovery from a cute blood loss,hemolytic anemia) will falsely lo wer HGBA1c resultsregardle ss of the method used. HG BA1c results from martha simmons HbSS, HbCC, and [...] N (test code = MBG) BASIC METABOLIC [id number] 05:03:00 Test Item Value Reference Range Interpretation [...] code = 8.3 MG/DL 8.4-10.2 L CA) [id number] 05:03:00 Test Item Value Reference Range Interpretation Comments MAGNESIUM (test code = MAG) 1.9 MG/DL 1.6-2.3 N CBC W/AUTO [id number] 04:56:00 Test Item Value Reference Range Interpretation [...] = 0.00 K/mm3 0.0-0.1 N NRBC#) DIFFERENTIAL [id number] 04:56:00 Test Item Value Reference Range Interpretation Comments RBC MORPHOLOGY REQUIRED (test code = RBCM) PLATELET ESTIMATE (test code = PLTEST) ADEQUATE PLATELET MORPHOLOGY (test code = NORMAL PLTMORPH) CBC W/AUTO [id number] 04:56:00 Test Item Value Reference Range Interpretation [...] = 0.00 K/mm3 0.0-0.1 N NRBC#) DIFFERENTIAL [id number] 04:56:00 Test Item Value Reference Range Interpretation Comments RBC MORPHOLOGY REQUIRED (test code = RBCM) PLATELET ESTIMATE (test code = PLTEST) ADEQUATE PLATELET MORPHOLOGY (test code = NORMAL PLTMORPH) ARTERIAL BLOOD [id number] 13:25:00 Test Item Value Reference Range Interpretation [...] mated message] code = TEMPA) The system sarvaMAIL generated this result transmit roslyn reference range : 37. The reference r mel was not used to interpret this result as normal/abnormal . ABG SITE (test code = AL SITEA) ALLENS TEST (test NA CHECK code = ALLENS) FIO2 (test code = 28 % COHBGFFIO2) PaO2/[id number] 13:25:00 Test Item Value Reference Range Interpretation Comments PaO2/FiO2 (test code = CCW2UWA3) mm/Hg ARTERIAL BLOOD [id number] 13:25:00 Test Item Value Reference Range Interpretation [...] mated message] code = TEMPA) The system sarvaMAIL generated this result transmit roslyn reference range : 37. The reference r mel was not used to interpret this result as normal/abnormal . ABG SITE (test code = AL SITEA) ALLENS TEST (test NA CHECK code = ALLENS) FIO2 (test code = 28 % COHBGFFIO2) PaO2/[id number] 13:25:00 Test Item Value Reference Range Interpretation Comments PaO2/FiO2 (test code = TMA9STT3) 379.28 mm/Hg BASIC METABOLIC [id number] 12:56:00 Test Item Value Reference Range Interpretation [...] code = 8.3 MG/DL 8.4-10.2 L CA) [id number] 12:56:00 Test Item Value Reference Range Interpretation Comments MAGNESIUM (test code = MAG) 2.0 MG/DL 1.6-2.3 N CBC W/AUTO [id number] 12:52:00 Test Item Value Reference Range Interpretation [...] K/mm3 0.0-0.1 N NRBC#) - XR CHEST [id number] 12:22:00 [facility] : 1950 Sex: F Patient Name: MATTHEW MATHEWS Unit No: [id number] EXAMS: CPT CODE: [id number] XR CHEST [id number] Chest Radiograph History: post op surgery Comparison: August 20, 2020 Location: [facility] A single frontal view of the chest is submitted. The heart appears unchanged in size. Pulmonary vasculature is unremarkable. There is minimal left basilar atelectasis. The bones appear unchanged. A central vascular catheter terminates near the SVC/right atrium junction. No pneumothorax is identified. There are postsurgical changes projected over the left neck and left upper chest. IMPRESSION: There is minimal left basilar atelectasis. at 1222 Reported and signed by: Ben Moore MD CC: Kanwal Carrillo MD Technologist: Kristie Bass RT (R)Transcrpt Date/Tm/Trnsp: 08/22/2020 (9402) t.SDR.PMT Orig Print D/T: S: 08/22/2020 (3434) [facility] NAME: MATTHEW MATHEWS [id number] PHYS: [place] [address] : 1950 AGE: 70 SEX: F LOC: FARZAD Locke PHONE #: [phone] EXAM DATE: 08/22/2020 STATUS: ADM IN FAX #: [phone] RADIOLOGY NO: PAGE 1 Signed ReportCOVID 19 Asymptomatic IH [id number] 15:06:00 Test Item Value Reference Range Interpretation Comments COVID 19 NEGATIVE Negative "Negative resul ts from Asymptomatic IH AG patients with symptom (test code = onset beyondfiv e days, COVNONPUIAG) should be treat ed as presumptive, andconfirmation with a molecular assay [...] (antigen) in the sample." HIV 12 AB [id number] 14:51:00 Test Item Value Reference Range Interpretation Comments HIV 1 2 COMBO AG/AB SCREEN AB/AG NON REACTIVE NONREACTIVE (test code = [id number]) - XR CHEST 2 [id number] 14:24:00 [facility] : 1950 Sex: F Patient Name: MATTHEW MATHEWS Unit No: [id number] EXAMS: CPT CODE: [id number] XR CHEST 2V 87640 Location code: B2 HISTORY: Preop, endarterectomy TECHNIQUE: [...] Technologist: Rene Pichardo, RT(R) Transcrpt Date/Tm/Trnsp: 08/20/2020 (9115) t.RK5 Orig Print D/T: S: 08/21/19 21 (5560) [facility] NAME: MATTHEW MATHEWS [id number] PHYS: Nick Reis [facility] [address] : 1950 AGE: 70 SEX: F [facility] #: [phone] EXAM DATE: 08/20/2020 STATUS: PRE IN FAX #: [phone] RADIOLOGY NO: PAGE 1 Signed ReportBASIC METABOLIC PANEL 2020-08-20 14:04:00 Test Item Value Reference Range Interpretation [...] = 9.3 MG/DL 8.4-10.2 N CA) PROTHROMBIN [id number] 13:48:00 Test Item Value Reference Range Interpretation Comments PROTHROMBIN TIME PATIENT 13.5 9.5-12.7 H (test code = PTP) INTERNATIONAL NORMAL RATIO 1.2 0.86-1.14 H T he INR is to be used (test code = INR) only for m onitoring oral anticoagulantth erapy. INDICATION INR VALUE ------- ------- -----1. Prophylaxis, de ep venous thrombos is, including high risk surgery. 2.0 - 3.0 2. Prophylaxis, de ep venous thrombos is, hip surgery, treatm ent for deep venous thr ombosis or pulmonary prevention of s ystemic embolism in pat ients with valvular h eart disease, atrial fibrillation, t issue heart valve, or acute myocardial infa rction. 2.0 - 3.0 3. Mechanical pros thesis heart valves, recurrent syste robby embolism. 3.0 - 4.5 PTT [id number] 13:48:00 Test Item Value Reference Range Interpretation Comments PTT ACTIVATED (test 66.2 SECONDS 25.1-36.5 HH CALLED T O OPAL G code = APTT) & READBACK ON 08/20/20 AT 134 7 BY Jay Olguin CBC W/AUTO [id number] 13:17:00 Test Item Value Reference Range Interpretation [...] 0.00 K/mm3 0.0-0.1 N NRBC#) BASIC METABOLIC [id number] 06:51:00 Test Item Value Reference Range Interpretation [...] LDL (test < 30 MG/DL 0-99 N OPTIM AL.........<100 code = LDL) mg/dLNEAR OPTIMAL/ABOVE OPTIMAL........ .100-1 29 mg/dL BORDER LINE HIGH.........13 0-159 mg/dL HIGH.........16 0-189 mg/dL VERY HIGH.........>/ = 190 mg/dL [id number] 06:51:00 Test Item Value Reference Range Interpretation Comments MAGNESIUM (test code = MAG) 2.5 MG/DL 1.6-2.3 H BASIC METABOLIC [id number] 06:40:00 Test Item Value Reference Range Interpretation [...] LDL (test MG/DL 0-99 code = LDL) [id number] 06:40:00 Test Item Value Reference Range Interpretation Comments MAGNESIUM (test code = MAG) 2.5 MG/DL 1.6-2.3 H PROTHROMBIN [id number] 06:35:00 Test Item Value Reference Range Interpretation Comments PROTHROMBIN TIME PATIENT 13.0 9.5-12.7 H (test code = PTP) INTERNATIONAL NORMAL RATIO 1.2 0.86-1.14 H T he INR is to be used (test code = INR) only for m onitoring oral anticoagulantth erapy. INDICATION INR VALUE ------- ------- -----1. Prophylaxis, de ep venous thrombos is, including high risk surgery. 2.0 - 3.0 2. Prophylaxis, de ep venous thrombos is, hip surgery, treatm ent for deep venous thr ombosis or pulmonary prevention of s ystemic embolism in pat ients with valvular h eart disease, atrial fibrillation, t issue heart valve, or acute myocardial infa rction. 2.0 - 3.0 3. Mechanical pros thesis heart valves, recurrent syste robby embolism. 3.0 - 4.5 PTT [id number] 06:35:00 Test Item Value Reference Range Interpretation Comments PTT ACTIVATED (test code = APTT) 51.6 SECONDS 25.1-36.5 H CBC W/AUTO [id number] 06:23:00 Test Item Value Reference Range Interpretation [...] 0.0-0.1 N NRBC#) COVID 19 Asymptomatic IH [id number] 05:51:00 Test Item Value Reference Range Interpretation Comments COVID 19 NEGATIVE Negative "Negative resul ts from Asymptomatic IH AG patients with symptom (test code = onset beyondfiv e days, COVNONPUIAG) should be treat ed as presumptive, andconfirmation with a molecular assay [...] amount of virus (antigen) in the sample." CBC W Auto Differential panel - [id number] 00:00:00 Test Item Value Reference Range Interpretation Comments Leukocytes [#/volume] in Blood 6.8 x10e3/uL 3.4-10.8 by Automated count (test code = 6690-2) Erythrocytes [#/volume] in 4.10 x10e6/uL 3.77-5.28 Blood by Automated count (test code = 789-8) Hemoglobin [Mass/volume] in 10.0 g/dL 11.1-15.9 L Blood (test code = 718-7) Hematocrit [Volume Fraction] of 31.6 % 34.0-46.6 L Blood by Automated count (test code = 4544-3) Erythrocyte mean corpuscular 77 fL 79-97 L volume [Entitic volume] by Automated count (test code = 787-2) Erythrocyte mean corpuscular 24.4 pg 26.6-33.0 L hemoglobin [Entitic mass] by Automated count (test code = 785-6) Erythrocyte mean corpuscular 31.6 g/dL 31.5-35.7 hemoglobin concentration [Mass/volume] by Automated count (test code = 786-4) Erythrocyte distribution width 15.2 % 11.7-15.4 [Ratio] by Automated count (test code = 788-0) Platelets [#/volume] in Blood 492 x10e3/uL 150-450 H by Automated count (test code = 777-3) Neutrophils/100 leukocytes in 60 % not estab. Blood by Automated count (test code = 770-8) Lymphocytes/100 leukocytes in 24 % not estab. Blood by Automated count (test code = 736-9) Monocytes/100 leukocytes in 11 % not estab. Blood by Automated count (test code = 5905-5) Eosinophils/100 leukocytes in 3 % not estab. Blood by Automated count (test code = 713-8) Basophils/100 leukocytes in 1 % not estab. Blood by Automated count (test code = 706-2) immature cells (test code = double bottom driver immature cells) Neutrophils [#/volume] in Blood 4.2 x10e3/uL 1.4-7.0 by Automated count (test code = 751-8) Lymphocytes [#/volume] in Blood 1.6 x10e3/uL 0.7-3.1 by Automated count (test code = 731-0) Monocytes [#/volume] in Blood 0.7 x10e3/uL 0.1-0.9 by Automated count (test code = 742-7) Eosinophils [#/volume] in Blood 0.2 x10e3/uL 0.0-0.4 by Automated count (test code = 711-2) Basophils [#/volume] in Blood 0.0 x10e3/uL 0.0-0.2 by Automated count (test code = 704-7) Immature granulocytes/100 1 % not estab. leukocytes in Blood by Automated count (test code = 07274-7) Immature granulocytes 0.1 x10e3/uL 0.0-0.1 [#/volume] in Blood by Automated count (test code = 16341-3) Nucleated erythrocytes/100 double bottom driver leukocytes [Ratio] in Blood by Automated count (test code = 85522-6) Morphology [Interpretation] in double bottom driver Blood Narrative (test code = 16442-2) [facility] - Serum or [id number] 00:00:00 Test Item Value Reference Range Interpretation Comments Glucose [Mass/volume] in Serum 144 mg/dL 65-99 H or Plasma (test code = 2345-7) Urea nitrogen [Mass/volume] in 20 mg/dL 8-27 Serum or Plasma (test code = 3094-0) Creatinine [Mass/volume] in 0.78 mg/dL 0.57-1.00 Serum or Plasma (test code = 2160-0) Glomerular filtration 76 mL/min/1.73 >59 rate/1.73 sq M.predicted among non-blacks [Volume Rate/Area] in Serum, Plasma or Blood by Creatinine-based formula (CKD-EPI) (test code = 92137-4) Glomerular filtration 88 mL/min/1.73 >59 rate/1.73 sq M.predicted among blacks [Volume Rate/Area] in Serum, Plasma or Blood by Creatinine-based formula (CKD-EPI) (test code = 02391-3) Urea nitrogen/Creatinine [Mass 26 12-28 Ratio] in Serum or Plasma (test code = 3097-3) Sodium [Moles/volume] in Serum 143 mmol/L 134-144 or Plasma (test code = 2951-2) Potassium [Moles/volume] in 4.1 mmol/L 3.5-5.2 Serum or Plasma (test code = 2823-3) Chloride [Moles/volume] in 105 mmol/L 96-106 Serum or Plasma (test code = 2075-0) Carbon dioxide, total 22 mmol/L 20-29 [Moles/volume] in Serum or Plasma (test code = 8-9) Calcium [Mass/volume] in Serum 9.7 mg/dL 8.7-10.3 or Plasma (test code = 33139-6) Protein [Mass/volume] in Serum 6.6 g/dL 6.0-8.5 or Plasma (test code = 2885-2) Albumin [Mass/volume] in Serum 4.2 g/dL 3.7-4.7 or Plasma (test code = 1751-7) Globulin [Mass/volume] in 2.4 g/dL 1.5-4.5 Serum by calculation (test code = 97816-4) Albumin/Globulin [Mass Ratio] 1.8 1.2-2.2 in Serum or Plasma (test code = 1759-0) Bilirubin.total [Mass/volume] 0.3 mg/dL 0.0-1.2 in Serum or Plasma (test code = 1975-2) Alkaline phosphatase 76 IU/L 39-117 [Enzymatic activity/volume] in Serum or Plasma (test code = 6768-6) Aspartate aminotransferase 13 IU/L 0-40 [Enzymatic activity/volume] in Serum or Plasma (test code = 1920-8) Alanine aminotransferase 11 IU/L 0-32 [Enzymatic activity/volume] in Serum or Plasma (test code = 1742-6) [facility] (COVID-19) Ag [Presence] in Respiratory specimen by Rapid [id number] 16:30:00 Test Item Value Reference Range Interpretation Comments SARS CoV 2 (test code = SARS CoV 2) positive [facility] [id number] 20:09:00 Test Item Value Reference Range Interpretation Comments BUN (test code = BUN) 12-14 [facility] [employer] [id number] 20:09:00 Test Item Value Reference Range Interpretation Comments BUN (test code = BUN) 12-14 [facility] [id number] 20:09:00 Test Item Value Reference Range Interpretation Comments Creatinine Lvl (test code = Creatinine 0.95 0.60-0.93 Lvl) [facility] [employer] [id number] 20:09:00 Test Item Value Reference Range Interpretation Comments Creatinine Lvl (test code = Creatinine 0.95 0.60-0.93 Lvl) [facility] [employer] [id number] 20:09:00 Test Item Value Reference Range Interpretation Comments eGFR NON-AFR. [place] (test code = 60 eGFR NON-AFR. [place]IZ[place]) [facility] [employer] [id number] 20:09:00 Test Item Value Reference Range Interpretation Comments eGFR NON-AFR. [place] (test code = 60 eGFR NON-AFR. [place]) [facility] HermannCHEM [id number] 20:09:00 Test Item Value Reference Range Interpretation Comments eGFR (test code = eGFR 70 ) [facility] [id number] 20:09:00 Test Item Value Reference Range Interpretation Comments eGFR (test code = eGFR 70 ) [facility] [id number] 20:09:00 Test Item Value Reference Range Interpretation Comments B/C Ratio (test code = B/C Ratio) 11-11 [facility]le[employer]comannCHEM [id number] 20:09:00 Test Item Value Reference Range Interpretation Comments B/C Ratio (test code = B/C Ratio) 11-11 [facility]le[facility]comannCHEM [id number] 20:09:00 Test Item Value Reference Range Interpretation Comments BUN (test code = BUN) 12-14 [facility] [id number] 20:09:00 Test Item Value Reference Range Interpretation Comments Creatinine Lvl (test code = Creatinine 0.95 0.60-0.93 Lvl) [facility] [id number] 20:09:00 Test Item Value Reference Range Interpretation Comments eGFR NON-AFR. [place] (test code = 60 eGFR NON-AFR. [place]IZ[place]) [facility] [employer] [id number] 20:09:00 Test Item Value Reference Range Interpretation Comments eGFR (test code = eGFR 70 ) [facility] [id number] 20:09:00 Test Item Value Reference Range Interpretation Comments B/C Ratio (test code = B/C Ratio) 11-11 [facility] [id number] 20:09:00 Test Item Value Reference Range Interpretation Comments BUN (test code = BUN) 12-14 [facility] [id number] 20:09:00 Test Item Value Reference Range Interpretation Comments Creatinine Lvl (test code = Creatinine 0.95 0.60-0.93 Lvl) [facility] [id number] 20:09:00 Test Item Value Reference Range Interpretation Comments eGFR NON-AFR. [place] (test code = 60 eGFR NON-AFR. [place]) [facility] [employer] [id number] 20:09:00 Test Item Value Reference Range Interpretation Comments eGFR (test code = eGFR 70 ) [facility] [id number] 20:09:00 Test Item Value Reference Range Interpretation Comments B/C Ratio (test code = B/C Ratio) 28 6-22 [facility] [id number] 13:10:00Surgical Pathology Report Case: [id number] Authorizing Provider: Ervin Ortiz MD Collected: 01/09/2018 1704 Ordering Location: [facility] Received: 01/10/2018 0831 SERVICES Pathologist:Avery Leal MD Specimen: Large Intestine, Colon - Rectosigmoid, rectosigmoid and donuts A. RECTUM AND SIGMOID COLON, LAPAROSCOPIC LOW ANTERIOR RESECTION: COLON WITH DIVERTICULAR DISEASE.NEGATIVE FOR DYSPLASIA OR INVASIVE CARCINOMA.SURGICAL MARGINS VIABLE. Signing Pathologist Direct Phone Line: [phone] signed by Avery Leal MD on 01/12/2018 at 1:10 [id number] of colon Rectosigmoid colon and donutsReceived fresh labeled "large intestine, colon rectosigmoid", description "rectosigmoid and donuts" is a 28.0 cm in length x 4.0 cm in circumference segme nt of colon. The serosal surface is purple-pinzon to red, dusky, focally ragged and exhibits dense fibrous adhesions. The specimen is opened to reveal multiple deep mucosal outpouchings throughout this specimen. None of the outpouchings appear to perforate the serosa. The surrounding uninvolved mucosa ispink-pinzon, dusky and unremarkable. No discrete masses are identified. Also received in the specimen container are two pink-pinzon dusky rings of intestinal tissue measuring 2.0 cm and 2.5 cm in diameter. Sectioning reveals no discrete masses. Section code: A1-A2, parallel resection margins; A3-A9, pharmaceutical sales representative sections of mucosal outpouchings; A10, pharmaceutical sales representative sections of intestinal rings. DB/plPerformed.BASIC METABOLIC [id number] 06:17:00 Test Item Value Reference Range Interpretation [...] (BEAKER) (test code = 413) BASIC METABOLIC [id number] 05:44:00 Test Item Value Reference Range Interpretation [...] 413) CBC WITH PLATELET COUNT + MANUAL [id number] 16:02:00 Test Item Value Reference Range Interpretation [...] 0-1 PERCENT (BEAKER) (test code = 2801) [id number] 11:33:00 Test Item Value Reference Range Interpretation Comments ALBUMIN (BEAKER) (test code = 1145) 4.2 g/dL 3.5-5.0 [id number] 13:50:00 Test Item Value Reference Range Interpretation Comments SODIUM (BEAKER) (test code = 381) 138 meq/L 136-145 POTASSIUM (BEAKER) (test code = 4.7 meq/L 3.5-5.1 379) CHLORIDE (BEAKER) (test code = 382) 109 meq/L 98-107 H CO2 (BEAKER) (test code = 355) 22 meq/L 22-29 BUN AND [id number] 13:50:00 Test Item Value Reference Range Interpretation Comments BLOOD UREA NITROGEN 20 mg/dL 7-21 (BEAKER) (test code = 354) CREATININE (BEAKER) 0.78 mg/dL 0.57-1.25 (test code = 358) EGFR (BEAKER) (test 73 mL/min/1.73 ESTIMA ROSLYN GFR IS code = 1092) sq m NOT ACCURATE CREATININE CLEARANCE IN PREDICTING GLOMERULAR FILTRATION RATE . ESTIMATED GFR I S NOT APPLICABLE FOR DIALYSIS PATIEN TS. [id number] 13:12:00 Test Item Value Reference Range Interpretation Comments HEMOGLOBIN (BEAKER) (test code = 11.8 GM/DL 11.2-15.7 410)
[2022-06-16] MEDS ORDERED: POLYETHYL GLY 3350 17 GM/DOSE ONE (09:48)
--- NOTE | 2022-06-16 10:06 | RAD REPORT ---
EXAM DESCRIPTION: CT - Head Brain Wo Cont - 06/16/2022 9:48 am CLINICAL HISTORY: Hemiplegia COMPARISON: 2020 TECHNIQUE: Computed axial tomography of the head was obtained. IV contrast was not requested. All CT scans are performed using dose optimization technique as appropriate and may include automated exposure control or mA/KV adjustment according to patient size. FINDINGS: An intracranial bleed is not seen . The ventricles are normal in caliber. No extra-axial fluid collection is noted. Bilateral gliosis within the cerebral hemispheres without significant change. No acute significant hypodensity within the brain is seen. IMPRESSION: No acute intracranial abnormality is seen. If patient's symptoms persist MRI of the bra in would be recommended.
--- NOTE | 2022-06-16 10:09 | RAD REPORT ---
EXAM DESCRIPTION: Alie Single View06/16/2022 9:49 am CLINICAL HISTORY: Hypertension COMPARISON: August 2021 FINDINGS: The lungs appear clear of acute infiltrate. The heart is normal size IMPRESSION: No acute abnormalities displayed
[2022-06-16 10:44] LABS: Urine Blood Negative (Negative); Urine Glucose Negative (Negative); Urine Protein Negative (Negative); Urine Specific Gravity 1.015 (1.005-1.030); Urine pH 5.5 (5.0-7.0)
[2022-06-16] MEDS ORDERED: ACETAMINOPHEN 500 MG TAB ONE (10:57)
[2022-06-16 11:05] LABS: Urine Bacteria >50 /HPF (<20); Urine Mucus Slight /HPF (None Seen)
[2022-06-16 12:54] LABS: Absolute Lymphocytes (CBC) 1.9 K/uL (0.7-4.9); Hematocrit 35.6 % (36.0-45.0); MCV 80.5 fL (80-100); MPV 7.9 fL (7.6-11.3); RBC Red Blood Cell Count 4.42 M/uL (3.86-4.86)
[2022-06-16 13:12] LABS: Albumin 3.6 g/dL (3.4-5.0); Bilirubin Total 0.4 mg/dL (0.2-1.0); Potassium 3.9 mmol/L (3.5-5.1); Protein, Total 7.3 g/dL (6.4-8.2)
[2022-06-16] MEDS ORDERED: ALBUTEROL 2.5 MG/3 ML NEB SOL ONE (13:43)
[2022-06-16] MEDS ORDERED: IPRATROPIUM BROM 0.5MG/2.5ML ONE (13:43)
[2022-06-16] MEDS ORDERED: CEFTRIAXONE 2000 MG/VIAL ONE (13:43)
--- NOTE | 2022-06-16 13:53 | ER ---
Nurse's Notes [facility] Name: Kali Kumar Age: 72 yrs Sex: Female : 1950 Arrival Date: 06/16/2022 Time: 08:58 Bed 20 Private MD: Diagnosis: lateral gaze palsy;UTI/ Urinary tract infection, site not specified Presentation: 06/16 08:59 Chief complaint: EMS states: they were called to get the patient from [place] [id number] home for a reported high blood pressure. patient has no complaints at this time outside of her chronic ailments. Chief complaint:. Coronavirus screen: At this time, the client does not indicate any symptoms associated with coronavirus-19. Ebola Screen: No symptoms or risks identified at this time. Initial Sepsis Screen: Does the patient meet any 2 criteria? No. Patient's initial sepsis screen is negative. Does the patient have a suspected source of infection? No. Patient's initial sepsis screen is negative. Risk Assessment: Do you want to hurt yourself or someone else? Patient reports no desire to harm self or others. Onset of symptoms was June 16, 2022. 08:59 Method Of Arrival: EMS: [facility] ap3 09:26 Acuity: ISAIAS 3 ap3 09:30 Chief complaint: Patient's son or daughter states: daughter states the patients ap3 inability to shift her eyes to the right is new, and not related to previous strokes. Daughter reports the patient was able to shift her eyes appropriately last night. Triage Assessment: 09:05 General: Appears in no apparent distress. Behavior is cooperative. Pain: Denies pain. ap3 Neuro: Level of Consciousness is awake, alert, obeys commands, Oriented to person, place, time, situation. Cardiovascular: Patient's skin is warm and dry. Respiratory: Airway is patent Respiratory effort is even, unlabored. Historical: - Allergies: 09:00 Codeine; ap3 - Home Meds: 09:00 aripiprazole oral [Active]; Aspirin Oral [Active]; atorvastatin oral [Active]; Baclofen ap3 Oral [Active]; Buspirone Oral [Active]; Clonidine Oral [Active]; clopidogrel oral [Active]; Cymbalta oral [Active]; Enulose oral [Active]; gabapentin oral [Active]; Hydralazine Oral [Active]; irbesartan oral [Active]; Iron CR Oral [Active]; levetiracetam oral [Active]; levothyroxine oral [Active]; Metoprolol Tartrate Oral [Active]; Potassium Chloride Oral [Active]; Promethazine Oral [Active]; Protonix Oral [Active]; senna oral [Active]; Tramadol Oral [Active]; Vitamin D3 oral [Active]; - PMHx: 09:00 Anxiety; Depression; Hemiplegia and Hemiparesis to Left dominant side; Hyperlipidemia; ap3 Hypertension; Hypothyroidism; Major depressie disorder with psychotic symptoms; MUSCLE WEAKNESS; - Immunization history:: Client reports receiving the 2nd dose of the Covid vaccine. - Social history:: Smoking status: Patient denies any tobacco usage or history of. - Family history:: not pertinent. Screenin:06 Abuse screen: Denies threats or abuse. Nutritional screening: No deficits noted. ap3 Tuberculosis screening: No symptoms or risk factors identified. 10:21 [facility] ED Fall Risk Assessment (Adult) History of falling in the last 3 months, ap3 including since admission No falls in past 3 months (0 pts) Confusion or Disorientation No (0 pts) Intoxicated or Sedated No (0 pts) Impaired Gait Yes (1 pt) Mobility Assist Device Used No (0 pt) Altered Elimination Yes (1 pt) Score/Fall Risk Level 3 or more points = High Risk Oriented to surroundings, Maintained a safe environment, Educated pt \T\ family on fall prevention, incl call for assistance when getting out of bed, Assessed \T\ reinforced patient's understanding of fall precautions, Provided non-skid footwear, Hourly rounding (assess needs \T\ fall precautionary measures) done, Utilized family, sitter, or virtual before school babysitter as indicated. Vital Signs: 08:58 BP 132 / 61; Pulse 79; Resp 18; Temp 98.6; Pulse Ox 99% ; ap3 10:00 BP 171 / 30; Pulse 71; Pulse Ox 100% ; ap3 11:41 BP 180 / 62; Pulse 73; Pulse Ox 100% ; ap3 13:06 BP 177 / 55; Pulse 73; Pulse Ox 100% on R/A; ap3 14:00 BP 213 / 88; Pulse 77; Pulse Ox 99% on R/A; ap3 14:48 BP 153 / 54; Pulse 87; Pulse Ox 100% on R/A; ap3 14:00 provider aware, no new orders at this time ap3 ED Course: 08:58 Patient arrived in ED. ap3 09:00 Triage completed. ap3 09:06 Arm band placed on right wrist. ap3 09:06 Patient has correct armband on for positive identification. Bed in low position. Call ap3 light in reach. Side rails up X2. Adult w/ patient. tumbler plater on. Pulse ox on. NIBP on. Door closed. Noise minimized. Warm blanket given. 09:16 Abdi Davila MD is Attending Physician. rt 09:26 Nga Brown, RN is Primary Nurse. ap3 09:50 CT Head Brain wo Cont In Process Unspecified. EDMS 09:51 Chest Single View XRAY In Process Unspecified. EDMS 11:20 Pt visited by daughter. ap3 12:50 ED physician to see patient. ap3 13:52 Elidia Chu MD is Hospitalizing Provider. rt 18:26 No provider procedures requiring assistance completed. Patient admitted, IV remains in ap3 place. 19:12 Primary Nurse role handed off by Nga Brown, RN mw2 Administered Medications: 10:11 Drug: Miralax (polyethylene glycol) 17 grams Route: PO; ap3 10:45 Follow up: Response: No adverse reaction ap3 10:58 Drug: Tylenol 1000 mg Route: PO; ap3 18:27 Follow up: Response: No adverse reaction ap3 13:06 Drug: Rocephin (cefTRIAXone) 2 grams Route: IV; Rate: calculated rate; Site: right hand;ap3 14:48 Follow up: IV Status: Completed infusion ap3 14:00 Drug: DuoNeb (albuterol 2.5 mg, ipratropium 0.5 mg) (3:1) (2.5 mg - 0.5 mg) 3 ml Route: ap3 Nebulizer; 14:48 Follow up: Response: No adverse reaction ap3 14:20 Drug: Zofran (Ondansetron) 4 mg Route: IVP; Site: right antecubital; ap3 14:48 Follow up: Response: No adverse reaction; Nausea is decreased ap3 Medication: 09:07 VIS not applicable for this client. ap3 Outcome: 13:53 Decision to Hospitalize by Provider. rt 18:26 Admitted to ER Hold. Please see [facility] for further documentation. ap3 18:26 Condition: good 18:26 Instructed on the need for admit. 06/17 11:11 Patient left the ED. ap3 Signatures: Dispatcher [employer] Nga Pedersen RN RN ap3 Jenna Guadarrama mw2 Abdi Davila MD MD rt Corrections: (The following items were deleted from the chart) 06/16 09:26 08:59 Acuity: ISAIAS 4 ap3 ap3 11:42 10:29 Pulse 79bpm; Pulse Ox 100%; ap3 ap3
--- NOTE | 2022-06-16 13:53 | EDPHYS ---
Physician Documentation [facility] Name: Kali Kumar Age: 72 yrs Sex: Female : 1950 Arrival Date: 06/16/2022 Time: 08:58 Bed 20 Private MD: ED Physician Abdi Davila HPI: 06/16 10:02 This 72 yrs old Female presents to ER via EMS with complaints of High Blood Pressure. rt 10:02 Patient with history of hypertension and multiple previous strokes presents to the ED rt with concerns for her blood pressure being elevated. Of note, the patient can only turn her head and turn her right arm due to the prior strokes. The patient was moaning at the fdc and the patient's daughter states that she is not acting like her usual self. She states that this occurs when the patient either has a stroke, UTI or is constipated. The patient has reportedly not had a bowel movement in about 5 days. Denies other acute complaints at this time, symptoms are moderate in severity, no other aggravating or alleviating factors.. Historical: - Allergies: 09:00 Codeine; ap3 - Home Meds: 09:00 aripiprazole oral [Active]; Aspirin Oral [Active]; atorvastatin oral [Active]; Baclofen ap3 Oral [Active]; Buspirone Oral [Active]; Clonidine Oral [Active]; clopidogrel oral [Active]; Cymbalta oral [Active]; Enulose oral [Active]; gabapentin oral [Active]; Hydralazine Oral [Active]; irbesartan oral [Active]; Iron CR Oral [Active]; levetiracetam oral [Active]; levothyroxine oral [Active]; Metoprolol Tartrate Oral [Active]; Potassium Chloride Oral [Active]; Promethazine Oral [Active]; Protonix Oral [Active]; senna oral [Active]; Tramadol Oral [Active]; Vitamin D3 oral [Active]; - PMHx: 09:00 Anxiety; Depression; Hemiplegia and Hemiparesis to Left dominant side; Hyperlipidemia; ap3 Hypertension; Hypothyroidism; Major depressie disorder with psychotic symptoms; MUSCLE WEAKNESS; - Immunization history:: Client reports receiving the 2nd dose of the Covid vaccine. - Social history:: Smoking status: Patient denies any tobacco usage or history of. - Family history:: not pertinent. ROS: 10:02 Constitutional: Negative for fever, chills, and weight loss, Eyes: Negative for injury, rt pain, redness, and discharge, ENT: Negative for injury, pain, and discharge, Cardiovascular: Negative for chest pain, palpitations, and edema, Respiratory: Negative for shortness of breath, cough, wheezing, and pleuritic chest pain, MS/Extremity: Negative for injury and deformity, Skin: Negative for injury, rash, and discoloration, Psych: Negative for depression, anxiety, suicide ideation, homicidal ideation, and hallucinations. 10:02 Abdomen/GI: Positive for constipation, Negative for vomiting. 10:02 Neuro: Positive for altered mental status, tremor, Negative for Exam: 10:02 Constitutional: This is a well developed, well nourished patient who is awake, alert, rt and in no acute distress. Chest/axilla: Normal chest wall appearance and motion. Nontender with no deformity. No lesions are appreciated. Cardiovascular: Regular rate and rhythm with a normal S1 and S2. No gallops, murmurs, or rubs. Normal PMI, no JVD. No pulse deficits. Respiratory: Lungs have equal breath sounds bilaterally, clear to auscultation and percussion. No rales, rhonchi or wheezes noted. No increased work of breathing, no retractions or nasal flaring. Abdomen/GI: Soft, non-tender, with normal bowel sounds. No distension or tympany. No guarding or rebound. No evidence of tenderness throughout. Skin: Warm, dry with normal turgor. Normal color with no rashes, no lesions, and no evidence of cellulitis. MS/ Extremity: Pulses equal, no cyanosis. Neurovascular intact. Full, normal range of motion. 10:02 Eyes: Pupils are equally round and reactive to light, no visual field deficits, patient is not able to move her eyes to the right past midline, a new finding per the daughter.. 10:02 Neuro: Sensation intact on all 4 extremities. There is a left-sided facial droop, left-sided hemiparesis and paralysis of the right leg which are pre-existing per the daughter.. Vital Signs: 08:58 BP 132 / 61; Pulse 79; Resp 18; Temp 98.6; Pulse Ox 99% ; ap3 10:00 BP 171 / 30; Pulse 71; Pulse Ox 100% ; ap3 11:41 BP 180 / 62; Pulse 73; Pulse Ox 100% ; ap3 13:06 BP 177 / 55; Pulse 73; Pulse Ox 100% on R/A; ap3 14:00 BP 213 / 88; Pulse 77; Pulse Ox 99% on R/A; ap3 14:48 BP 153 / 54; Pulse 87; Pulse Ox 100% on R/A; ap3 14:00 provider aware, no new orders at this time ap3 MDM: 09:18 Patient medically screened. rt 14:27 Differential diagnosis: New neurodeficit, UTI, CVA, TIA, space-occupying lesion. Data rt reviewed: vital signs, nurses notes, old medical records, lab test result(s), EKG, radiologic studies. Historians other than the Patient: Daughter/Son: Discussed prior history with patient's daughter. External Records Reviewed: Inpatient record: . Care significantly affected by the following chronic conditions: Prior CVAs. ED course: Timing of onset is greater than 4.5 hours, patient is not a tPA candidate.. 06/16 09:28 Order name: CBC with Diff; Complete Time: 13:38 rt 06/16 09:28 Order name: CMP; Complete Time: 13:38 rt 06/16 09:28 Order name: Troponin High Sensitivity; Complete Time: 13:38 rt 06/16 09:28 Order name: UA MICROSCOPIC; Complete Time: 12:20 rt 06/16 10:44 Order name: Urine Dipstick-Ancillary; Complete Time: 12:20 EDMS 06/16 11:10 Order name: Urine Culture EDMS 06/16 12:50 Order name: Urine Culture rt 06/16 12:50 Order name: SARS RAPID; Complete Time: 04:02 ap3 06/16 16:26 Order name: Lipid Profile EDMS 06/16 16:26 Order name: Magnesium; Complete Time: 04:02 EDMS 06/16 16:26 Order name: NT PRO-BNP; Complete Time: 04:02 EDMS 06/16 16:26 Order name: Phosphorus; Complete Time: 04:02 EDMS 06/16 16:26 Order name: PTT, Activated Partial Thromb; Complete Time: 04:02 EDMS 06/16 16:26 Order name: T4 Free; Complete Time: 04:02 EDMS 06/16 09:28 Order name: CT Head Brain wo Cont; Complete Time: 10:14 rt 06/16 09:28 Order name: EKG; Complete Time: 09:29 rt 06/16 09:30 Order name: Chest Single View XRAY; Complete Time: 10:14 rt 06/16 16:26 Order name: Heart Healthy EDMS 06/16 16:26 Order name: Thyroid Stimulating Hormone; Complete Time: 04:02 EDMS 06/16 16:26 Order name: Urinalysis EDMS 06/16 16:26 Order name: Basic Metabolic Panel EDMS 06/16 16:26 Order name: Basic Metabolic Panel EDMS 06/16 16:26 Order name: CBC with Automated Diff EDMS 06/16 16:26 Order name: CBC with Automated Diff EDMS 06/16 16:32 Order name: Brain Wo Cont; Complete Time: 04:02 EDMS 06/16 09:28 Order name: EKG - Nurse/Tech; Complete Time: 10:58 rt 06/16 09:28 Order name: Urine Dipstick-Ancillary (obtain specimen); Complete Time: 10:42 rt Administered Medications: 10:11 Drug: Miralax (polyethylene glycol) 17 grams Route: PO; ap3 10:45 Follow up: Response: No adverse reaction ap3 10:58 Drug: Tylenol 1000 mg Route: PO; ap3 18:27 Follow up: Response: No adverse reaction ap3 13:06 Drug: Rocephin (cefTRIAXone) 2 grams Route: IV; Rate: calculated rate; Site: right hand;ap3 14:48 Follow up: IV Status: Completed infusion ap3 14:00 Drug: DuoNeb (albuterol 2.5 mg, ipratropium 0.5 mg) (3:1) (2.5 mg - 0.5 mg) 3 ml Route: ap3 Nebulizer; 14:48 Follow up: Response: No adverse reaction ap3 14:20 Drug: Zofran (Ondansetron) 4 mg Route: IVP; Site: right antecubital; ap3 14:48 Follow up: Response: No adverse reaction; Nausea is decreased ap3 Disposition Summary: 06/16/22 13:53 Hospitalization Ordered Hospitalization Status: Observation rt Provider: Elidia Chu rt Condition: Stable rt Problem: new rt Symptoms: are unchanged rt Bed/Room Type: Standard rt Location: [facility] ER HOLD(06/16/22 21:02) cg Room Assignment: ERHOLD-(06/16/22 21:02) cg Diagnosis - lateral gaze palsy rt - UTI/ Urinary tract infection, site not specified rt Forms: - Medication Reconciliation Form rt - SBAR form rt Signatures: Dispatcher [employer] Jolene Holt RN RN cg Nga Brown RN RN ap3 Kendra Warner PA-C PA-C sb4 Abdi Davila MD MD rt Corrections: (The following items were deleted from the chart) 20:46 13:53 rt cg 21: 20:46 430 cg cg 21:02 13:53 Telemetry/MedSurg (observation) rt cg 21:02 21:01 cg cg
[2022-06-16] MEDS ORDERED: ONDANSETRON 4 MG/2 ML VIAL ONE (14:17)
[2022-06-16 14:38] LABS: SARS-CoV-2 Antigen Rapid Res Negative (Negative)
[2022-06-16] MEDS ORDERED: ACETAMINOPHEN 325 MG TABLET PO PRN (16:18)
[2022-06-16] MEDS ORDERED: ONDANSETRON 4 MG/2 ML VIAL IV PRN (16:21)
--- NOTE | 2022-06-16 16:37 | P.HP ---
Patient History Date of Service: 06/16/22 Reason for admission: AMS, Lateral gaze palsy History of Present Illness: Patient is a 72-year-old female with a past medical history significant for CVA, HLD, hypertension, hypothyroidism who presents with complaint of lateral gaze palsy and altered mental status. Patient is a [facility]. Patient reported that her blood pressure was elevated at the [facility]. Patient alert and oriented x2. No episodes of confusion noted. Patient has bilateral lower extremity/left sided weakness from previous stroke. Per nursing staff in the ER patient unable to move her eyes to the right side but at time of assessment patient able to move her eyes to the right and the left as well as up and down. Patient reported associated signs and symptoms of headache. Patient denies any other signs or symptoms. Symptoms are aggravated or relieved by nothing. Patient was brought to the hospital for medical evaluation. Of note, per medical record patient has not had a bowel movement in 5 days and patient also reported that she vomited in the ER. Allergies codeine Allergy (Verified 07/26/16 01:41) Itching Home Medications: Amlodipine Besylate [Norvasc] 10 mg PO DAILY 08/14/14 Clopidogrel Bisulfate [Plavix] 75 mg PO DAILY 08/14/14 Rosuvastatin Calcium [Crestor] 40 mg PO BEDTIME 08/14/14 Levothyroxine [Synthroid*] 125 mcg PO [id number] 07/26/16 Clonidine HCl [Catapres*] 1 tab TID 03/05/21 Metoprolol Succinate [Toprol Xl*] 1 tab BID 03/05/21 Nifedipine [Nifedipine ER] 1 tab DAILY 03/05/21 - Past Medical/Surgical History Diabetic: No -: hypertension -: hypothyroidism -: high cholesterol -: diverticulitis perforated -: CAD -: Anxiety -: Multiple CVA -: Carotid artery disease -: Dementia -: cardiac stent, endarterectomy -: thyroidectomy -: cholecystectomy -: appendectomy -: tubal ligation -: bladder suspension -: knee SX -: hysterectomy Psychosocial/ Personal History: Patient is resident of [facility] - Family History Brother -: Heart disease, Hypertension, Diabetes, Other (see notes) Notes: parkinsons Sister -: Hypertension, GI disease, Other (see notes) Notes: diverticulosis - Social History Smoking Status: Unknown if ever smoked Alcohol use: No CD- Drugs: No Caffeine use: Yes Place of Residence: Home Review of Systems General: Weakness Eyes: Unremarkable ENT: Unremarkable Respiratory: Unremarkable Cardiovascular: Unremarkable Gastrointestinal: Nausea, Vomiting Genitourinary: Unremarkable Musculoskeletal: Unremarkable Integumentary: Unremarkable Neurological: Weakness, Other (Headache ) Lymphatics: Unremarkable Physical Examination - Physical Exam General: Alert, In no apparent distress, Oriented x3, Cooperative HEENT: Atraumatic, PERRLA, Mucous membr. moist/pink, EOMI, Sclerae nonicteric Neck: Supple, 2+ carotid pulse no bruit, No LAD, Without JVD or thyroid abnormality Respiratory: Clear to auscultation bilaterally, Normal air movement Cardiovascular: No edema, Regular rate/rhythm, Normal S1 S2 Capillary refill: <2 Seconds Gastrointestinal: Normal bowel sounds, Soft and benign, No tenderness Musculoskeletal: No swelling, No contractures, No tenderness Integumentary: No rashes, No significant lesion, No tenderness/swelling Neurological: Normal speech, Normal tone, Normal affect, Abnormal strength Lymphatics: No axilla or inguinal lymphadenopathy - Studies Laboratory Data (last 24 hrs) 06/16/22 12:46: Sodium 142, Potassium 3.9, BUN 21 H, Creatinine 0.48 L, Glucose 101, Total Bilirubin 0.4, AST 12 L, ALT 17, Alkaline Phosphatase 69 06/16/22 12:46: WBC 10.00, Hgb 11.6 L, Hct 35.6 L, Plt Count 396 Assessment and Plan - Plan --TIA. Patient presented with lateral gaze palsy but at time of assessment gaze was normal in all directions. Patient has a history of CVA. MRI brain for further evaluation. Continue aspirin and statin. --Hypertension. We will allow for permissive hypertension pending resolution of MRI.. Continue hydralazine as needed for SBP greater than 200 mmHg. --Hyperlipidemia. Continue statin. --History of CVA\CAD. Continue aspirin, Plavix and statin. --Hypothyroidism. Continue Synthroid. --Anemia of chronic disease. H&H stable. We will continue to monitor hemoglobin and transfuse if less than 7.0. --Acute encephalopathy. Likely secondary to UTI. Patient alert and tolerating x2 but patient not confused. CT head does not indicate any acute intracranial abnormality. Continue supportive care. -- UTI POA. Continue antibiotics. Urine cultures pending. --Nausea and vomiting. Antiemetics on board. Continue supportive care. --Constipation. Patient placed on laxatives. --Dementia. Stable. Continue supportive care. -- DVT prophylaxis with Lovenox subQ. Discharge Plan: Home Plan to discharge in: 48 Hours - Advance Directives Does patient have a Living Will: Yes Does patient have a Durable POA for Healthcare: Yes - Code Status/Comfort Care Code Status Assessed: Yes Physician Review: Patient Assessed, Agree with Above Assessment and Plan Critical Care: No
[2022-06-16] MEDS: ENOXAPARIN 40 MG/0.4 ML SQ SCH (17:00)
[2022-06-16] MEDS: HYDROCODONE/APAP 5/325 MG TAB PO PRN (17:52)
[2022-06-16] MEDS ORDERED: HYDROCODONE/APAP 5/325 MG TAB ONE (17:53)
[2022-06-16] MEDS ORDERED: ENOXAPARIN 40 MG/0.4 ML SQ ONE (17:54)
[2022-06-16 18:14] VITALS: BMI 33.3
[2022-06-16] MEDS ORDERED: HYDRALAZINE HCL 20 MG/ML VIAL IV PRN (18:25)
[2022-06-16 18:29] LABS: Magnesium 2.1 mg/dL (1.6-2.4); Phosphorus 3.6 mg/dL (2.5-4.9); Thyroid Stimulating Hormone 2.52 uIU/mL (0.358-3.740)
[2022-06-16] MEDS ORDERED: LACTULOSE 20 GM/30 ML UCUP PO PRN (18:35)
--- NOTE | 2022-06-16 20:56 | RAD REPORT ---
EXAM DESCRIPTION: MRI - Brain Wo Cont - 06/16/2022 8:25 pm CLINICAL HISTORY: TIA, R O CVA Headache, drowsiness, CVA symptomology COMPARISON: Head Brain Wo Cont dated 06/16/2022; Brain W/Wo Cont dated 03/03/2021 TECHNIQUE: Multi-sequence, multiplanar MR imaging of the brain was performed without contrast. FINDINGS: No intracranial hemorrhage, hydrocephalus or extra-axial fluid collections. Areas of glios is noted in both posterior cerebral hemispheres. No acute CVA is suspected. . Midline structures are normally formed. Mastoid air cells and paranasal sinuses are clear. IMPRESSION: Evidence of fairly extensive bilateral prior infarcts. No acute CVA suspected.
[2022-06-16] MEDS ORDERED: HOME MED 1 EA UNK (Rosuvastatin Calcium [Crestor] 40 MG Tablet) PO SCH (21:00)
[2022-06-16] MEDS ORDERED: ROSUVASTATIN 10 MG TAB PO SCH (21:00)
[2022-06-16] MEDS ORDERED: ATORVASTATIN 40 MG TAB PO SCH (21:00)
[2022-06-16] MEDS ORDERED: ACETAMINOPHEN 325 MG TABLET ONE (21:09)
[2022-06-16] MEDS ORDERED: ATORVASTATIN 40 MG TAB ONE (21:09)
[2022-06-16] MEDS ORDERED: HALOPERIDOL LACT 5 MG/ML INJ IV PRN (22:31)
[2022-06-16] MEDS ORDERED: HALOPERIDOL LACT 5 MG/ML INJ ONE (22:45)
[2022-06-17 04:07] VITALS: TEMP 97.6
[2022-06-17] MEDS ORDERED: HYDROCODONE/APAP 5/325 MG TAB ONE (04:20)
[2022-06-17] MEDS: HYDROCODONE/APAP 5/325 MG TAB PO PRN (04:21)
[2022-06-17] MEDS ORDERED: LEVOTHYROXINE SOD 0.125 MG TAB PO SCH (06:00)
[2022-06-17] MEDS ORDERED: CLOPIDOGREL 75 MG TABLET ONE (08:04)
[2022-06-17] MEDS ORDERED: CEFTRIAXONE 1000 MG/VIAL ONE (08:04)
[2022-06-17] MEDS ORDERED: ASPIRIN 81 MG CHEWABLE TABLET ONE (08:04)
[2022-06-17] MEDS ORDERED: NA CHLORIDE 0.9% 50 ML IV ONE (08:04)
[2022-06-17] MEDS ORDERED: ENOXAPARIN 40 MG/0.4 ML SQ ONE (08:05)
[2022-06-17 08:44] VITALS: BP 162/88; O2SAT 100
[2022-06-17 08:50] LABS: Absolute Lymphocytes (CBC) 2.2 K/uL (0.7-4.9); Hematocrit 34.9 % (36.0-45.0); Lymphocytes % 22.6 % (15.3-44.8); MCV 80.4 fL (80-100); MPV 8.3 fL (7.6-11.3); RBC Red Blood Cell Count 4.34 M/uL (3.86-4.86)
[2022-06-17] MEDS ORDERED: CEFTRIAXONE 1,000 MG in NA CHLORIDE 0.9% 50 ML IVPB SCH (09:00)
[2022-06-17] MEDS: ENOXAPARIN 40 MG/0.4 ML SQ SCH (09:00)
[2022-06-17] MEDS ORDERED: CLOPIDOGREL 75 MG TABLET PO SCH (09:00)
[2022-06-17] MEDS ORDERED: ASPIRIN 81 MG CHEWABLE TABLET PO SCH (09:00)
[2022-06-17 09:09] LABS: Potassium 3.9 mmol/L (3.5-5.1)
== END 2022-06-17 11:09 ==
LOC: ER 08:46 → ERHOLD 16:16
PROVIDERS: ADMIT Hospitalist; ATTEND Hospitalist
DX: G45.9 Transient cerebral ischemic attack, unspecified (principal); R41.82 Altered mental status, unspecified; H51.0 Palsy (spasm) of conjugate gaze; I10 Essential (primary) hypertension; E78.5 Hyperlipidemia, unspecified; Z86.73 Personal history of transient ischemic attack (TIA), and cerebral infarction without residual deficits; E03.9 Hypothyroidism, unspecified; D63.1 Anemia in chronic kidney disease; G93.40 Encephalopathy, unspecified; N39.0 Urinary tract infection, site not specified; R11.2 Nausea with vomiting, unspecified; K59.00 Constipation, unspecified; F03.90 Unspecified dementia, unspecified severity, without behavioral disturbance, psychotic disturbance, mood disturbance, and anxiety; Z20.822 Contact with and (suspected) exposure to COVID-19
CPT/HCPCS: 87088; 85025 ×2; 87086; 80048; 36415 ×2; 83735; 84100; 80061; 85730; 84443; 84484; 84439; 80053; 83880; 70450; 71045; 70551; 87811; J1630; J7613; J7644; J1650 ×2; J2405; J0696; 81003; 81015; 87077; 87186; G0378

== ENCOUNTER 2025-03-01 23:33 | Observation (INO) | payer OTHER ==
[2025-03-02 00:09] LABS: Absolute Lymphocytes (CBC) 2.9 K/uL (0.7-4.9); Hematocrit 29.8 % (36.0-45.0); Hemoglobin 9.6 g/dL (12.0-15.0); MCH 26.9 pg (27.0-35.0); MCHC 32.4 g/dL (32.0-36.0); MCV 83.3 fL (80-100); MPV 8.9 fL (7.6-11.3); Nucleated RBC Absolute Count 0.0 (0-0); Nucleated Red Blood Cells % 0.1 % (0-0); RBC Red Blood Cell Count 3.58 M/uL (3.86-4.86); White Blood Count 9.40 thou/uL (4.3-10.9)
[2025-03-02 00:41] LABS: ALT/SGPT < 14 U/L (13-56); AST/SGOT 13 U/L (15-37); Albumin 2.8 g/dL (3.4-5.0); Albumin/Globulin Ratio 0.8 (1.1-1.8); Alkaline Phosphatase 82 U/L (45-117); Anion Gap 8.1 mEq/L (5.0-15.0); BUN Blood Urea Nitrogen 30 mg/dL (7-18); Bilirubin Indirect, Calculated 0.0 mg/dL (0.2-0.8); Globulin 3.6 g/dL (2.3-3.5); Glucose Level 101 mg/dL (74-106); Magnesium 2.1 mg/dL (1.6-2.4); NT PRO-BNP 1534 pg/mL (<450); Potassium 4.1 mEq/L (3.5-5.1); Troponin High Sensitivity 9.5 pg/mL (<58.9)
--- NOTE | 2025-03-02 02:00 | RAD REPORT ---
EXAM DESCRIPTION: Chest Single View CLINICAL HISTORY: low blood pressure COMPARISON: None TECHNIQUE: Single AP view of the chest. FINDINGS: Lung volumes adequate. Aortic calcifications. Cardiac silhouette is enlarged. No pneumothorax. No large pleural effusion. No focal consolidation. No acute bony finding. Surgical clips project over the left inferior neck. IMPRESSION: 1. No acute cardiopulmonary findings. 2. Enlarged cardiac silhouette. Electronically signed by: Tatyana Savage MD 03/02/2025 01:56 AM CDT RP TYG Due to temporary technical issues with the PACS/Seriously reporting system, reports are being mirna d by the in-house radiologist without review as a courtesy to ensure prompt reporting the interpreting radiologist is fully responsible for the content of the report. Transcribed Date/Time: 03/02/2025 2:00 AM
[2025-03-02 02:13] LABS: Sqamous Epithelial None Seen /HPF (None Seen); Urine Crystals Unidentified Moderate /HPF (None Seen); Urine Culture Reflex Order REFLEXED; Urine Microscopic Reflex YN ORDER UMIC; Urine WBC Clump Many /HPF (None Seen)
--- NOTE | 2025-03-02 02:28 | EDPHYS ---
Physician Documentation [facility] Name: Kali Kumar Age: 74 yrs Sex: Female : 1950 Arrival Date: 03/01/2025 Time: 23:33 Bed 3 Private MD: ED Physician Monster Lemon HPI: 03/01 23:50 This 74 yrs old Female presents to ER via EMS with complaints of Leg Pain. cp 23:50 The patient presents with pain, that is acute. The complaints affect the left leg and cp left foot. Onset: The symptoms/episode began/occurred today. 23:50 Associated signs and symptoms: Pertinent positives: low blood pressure with systolic cp pressure in the 70s reported by EMS upon initial evaluation, Pertinent negatives fever, rash. Treatment prior to arrival includes: 500 cc NS started. Historical: - Allergies: 23:44 Codeine; br2 - PMHx: 23:44 Anxiety; Depression; Hemiplegia and Hemiparesis to Left dominant side; Hyperlipidemia; br2 Hypertension; Hypothyroidism; Major depressie disorder with psychotic symptoms; MUSCLE WEAKNESS; - Immunization history:: Adult Immunizations up to date. - Infectious Disease History:: Denies. - Social history:: Smoking status: Patient/guardian denies using tobacco, Patient/guardian denies using alcohol, street drugs. ROS: 23:55 Constitutional: Negative for fever, cp 23:55 Cardiovascular: Negative for chest pain, palpitations, cp 23:55 Eyes: Negative for injury, pain, redness, and discharge, cp 23:55 ENT: Negative for drainage from ear(s), ear pain, sore throat, difficulty swallowing, difficulty handling secretions, 23:55 Respiratory: Negative for cough, shortness of breath, wheezing, 23:55 Abdomen/GI: Negative for abdominal pain, nausea, vomiting, and diarrhea, 23:55 MS/extremity: Positive for pain, swelling, tenderness, of the left leg and left foot, Negative for injury, 23:55 Neuro: Negative for altered mental status, headache, 23:55 All other systems are negative, Exam: 23:59 Constitutional: The patient appears in no acute distress, alert, awake, cp non-diaphoretic, non-toxic, well developed, well nourished, uncomfortable, 23:59 Head/Face: Normocephalic, atraumatic. cp 23:59 Eyes: Periorbital structures: appear normal, Conjunctiva: normal, Lids and lashes: appear normal, bilaterally, 23:59 ENT: External ear(s): are unremarkable, Nose: is normal, Mouth: Lips: moist, Oral mucosa: moist, Posterior pharynx: Airway: no evidence of obstruction, patent, 23:59 Chest/axilla: Inspection: normal, 23:59 Cardiovascular: Rate: bradycardic, Rhythm: regular, 23:59 Respiratory: the patient does not display signs of respiratory distress, Respirations: cp normal, no use of accessory muscles, no retractions, labored breathing, is not present, Breath sounds: are clear throughout, no decreased breath sounds, no stridor, no wheezing, 23:59 Abdomen/GI: Inspection: abdomen appears normal, Palpation: abdomen is soft and non-tender, in all quadrants, 23:59 Musculoskeletal/extremity: Extremities: noted in the left foot and left leg: pain, swelling, tenderness, There is no evidence of erythema, injury, 23:59 Neuro: Orientation: to person, place \T\ time. Mentation: able to follow commands, 03/02 00:05 ECG was reviewed by the Attending Physician. cp Vital Signs: 03/01 23:41 BP 119 / 56; Pulse 54; Resp 18; Temp 96.9; Pulse Ox 98% ; Weight 97.52 kg; Height 5 ft. br2 0 in. ; Pain 0/; 03/02 00:47 BP 140 / 45; Pulse 51; Resp 13; Pulse Ox 98% on R/A; cc6 02:49 BP 135 / 43; Pulse 49; Resp 14; Pulse Ox 97% on R/A; mf3 04:17 BP 140 / 37; Pulse 47; Resp 15; Temp 97; Pulse Ox 100% ; cc6 04:51 BP 134 / 50; Pulse 49; Resp 14; Pulse Ox 96% on R/A; cc6 05:22 BP 150 / 59; Pulse 49; Resp 18; Temp 97; Pulse Ox 97% ; Pain 0/10; mf3 03/01 23:41 Body Mass Index 41.99 (97.52 kg, 152.4 cm) br2 03/01 23:41 Pain Scale: Adult br2 05:22 Pain Scale: Adult 3 [place] Coma Score: 03/01 23:44 Eye Response: spontaneous(4). Motor Response: obeys commands(6). Verbal Response: mf3 oriented(5). Total: 15. MDM: 23:43 Medical Screening Exam initiated 03/02 00:00 Differential diagnosis: sepsis, uti, dvt, cellulitis. 02:30 Data reviewed: vital signs, nurses notes, lab test result(s), radiologic studies, plain cp films, ultrasound, and as a result, I will admit patient. 02:30 I considered the following discharge prescriptions or medication management in the emergency department Medications were administered in the Emergency Department. See JUL. 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 Independent interpretation of the following test(s) in the Emergency Department EKG: See my EKG interpretation above. Care significantly affected by the following chronic conditions: Hypertension. Counseling: I had a detailed discussion with the patient and/or guardian regarding the historical points, exam findings, and any diagnostic results supporting the discharge/admit diagnosis, lab results, radiology results. Response to treatment: the patient's symptoms have mildly improved after treatment. 03/01 23:43 Order name: Basic Metabolic Panel; Complete Time: : 03/02 01:13 Interpretation: Normal except: BUN 30; GFR 64. 03/01 23:43 Order name: CBC with Diff; Complete Time: 00:36 03/02 00:37 Interpretation: Normal except: RBC 3.58; HGB 9.6; HCT 29.8; MCH 26.9. 03/01 23:43 Order name: LFT's; Complete Time: : 03/02 01:13 Interpretation: Normal except: AST 13; IBILI, CALC 0.0; ALB 2.8; GLOB 3.6; A/G 0.8. 03/01 23:43 Order name: Magnesium; Complete Time: : 03/01 23:43 Order name: NT PRO-BNP; Complete Time: : 03/02 01:13 Interpretation: Abnormal: NT PRO-BNP 1534. 03/01 23:43 Order name: Troponin HS; Complete Time: : 03/01 23:43 Order name: UA Rfx Jason Cult if indicated; Complete Time: 02:18 03/01 23:43 Order name: Lactate w/ 2H reflex if indic.; Complete Time: 00:36 cp 03/02 02:16 Order name: Urine Culture EDMS 03/02 04:23 Order name: UA Rfx Jason Cult if indicated EDMS 03/02 04:23 Order name: CBC with Automated Diff EDMS 03/02 04:23 Order name: CBC with Automated Diff EDMS 03/02 04:23 Order name: CBC with Automated Diff EDMS 03/02 04:23 Order name: CBC with Automated Diff EDMS 03/02 04:23 Order name: Comprehensive Metabolic Panel EDMS 03/02 04:23 Order name: Comprehensive Metabolic Panel EDMS 03/02 04:23 Order name: Comprehensive Metabolic Panel EDMS 03/02 04:23 Order name: Comprehensive Metabolic Panel EDMS 03/02 04:23 Order name: Magnesium EDMS 03/02 04:23 Order name: Magnesium EDMS 03/02 04:23 Order name: Magnesium EDMS 03/02 04:23 Order name: Magnesium EDMS 03/01 23:43 Order name: XRAY Chest (1 view); Complete Time: 02:18 cp 03/02 00:24 Order name: Foot Left 3 View; Complete Time: 03:02 EDMS 03/02 01:15 Order name: US Extremity Venous Unilateral Ltd cp 03/01 23:43 Order name: Cardiac monitoring; Complete Time: 23:58 cp 03/01 23:43 Order name: EKG - Nurse/Tech; Complete Time: 23:58 cp 03/01 23:43 Order name: IV Saline Lock; Complete Time: 23:58 cp 03/01 23:43 Order name: Labs collected and sent; Complete Time: 23:59 cp 03/01 23:43 Order name: O2 Per Protocol; Complete Time: 23:59 cp 03/01 23:43 Order name: O2 Sat Monitoring; Complete Time: 23:58 cp EC:05 Rate is 53 beats/min. Rhythm is regular. NH interval is normal. QRS interval is normal. cp QT interval is normal. T waves are Inverted in lead aVR. Interpreted by me. Reviewed by me. Administered Medications: 02:31 Drug: Rocephin IV 1 grams IV at calculated rate once; Given slow IV push per pharmacy ha1 instructions Route: IV; Rate: calculated rate; Site: right hand; 02:56 Follow up: Response: No adverse reaction mf3 04:19 Follow up: Response: No adverse reaction; IV Status: Completed infusion cc6 04:51 Follow up: Response: No adverse reaction cc6 Disposition: 03:03 I was immediately available on-site in the Emergency Department for consultation in the ms3 care of the patient. Disposition Summary: 03/02/25 02:27 Hospitalization Ordered Notes: Hospitalization Status: Inpatient Admission cp Provider: Harry Bowens cp Location: Telemetry/MedSur (Inpatient) cp Condition: Stable cp Problem: new cp Symptoms: have improved cp Bed/Room Type: Standard cp Room Assignment: 201(03/02/25 04:42) rv1 Diagnosis - UTI/ Urinary tract infection, site not specified cp - Pain in left leg cp Forms: - Medication Reconciliation Form cp - SBAR form cp - Leadership Thank You Letter cp Signatures: Dispatcher [employer] EDMS Harish Chaparro PA-C PA-C cp Sims, Marcus, DO DO ms3 Wendy Briceño RN RN ha1 Rajni Meek rv1 Jelena Goldstein RN RN br2 Candice Kim RN cc6 Tawanna Luo RN mf3 Corrections: (The following items were deleted from the chart) 03/01 23:43 23:43 BASIC METABOLIC PANEL+C.LAB.BRZ ordered. EDMS EDMS 23:43 23:43 CBC+H.LAB.BRZ ordered. EDMS EDMS 23:43 23:43 HEPATIC FUNCTION+C.LAB.BRZ ordered. EDMS EDMS 23:43 23:43 MAGNESIUM+C.LAB.BRZ ordered. EDMS EDMS 23:43 23:43 PROBNP+C.LAB.BRZ ordered. EDMS EDMS 23:43 23:43 Troponin High Sensitivity+C.LAB.BRZ ordered. EDMS EDMS 23:43 23:43 UA Rfx Jason Cult if indicated+U.LAB.BRZ ordered. EDMS EDMS 23:43 23:43 LACTATE+C.LAB.BRZ ordered. EDMS EDMS 23:43 23:43 Chest Single View+RAD.RAD.BRZ ordered. EDMS EDMS 03/02 00:24 03/01 23:43 Foot Right 3 View+RAD.RAD.BRZ ordered. EDMS EDMS 03/02 01:16 01:16 Extremity Venous Uni Ltd+US.RAD.BRZ ordered. EDMS EDMS 02:20 03/01 23:40 This 74 yrs old Female presents to ER via EMS with complaints of Leg Pain. cp cp 03/02 04:42 02:27 cp rv1
--- NOTE | 2025-03-02 02:28 | ER ---
Nurse's Notes [facility] Name: Kali Kumar Age: 74 yrs Sex: Female : 1950 Arrival Date: 03/01/2025 Time: 23:33 Bed 3 Private MD: Diagnosis: UTI/ Urinary tract infection, site not specified;Pain in left leg Presentation: 03/01 23:41 Chief complaint: Patient states: PT SENT TO ER FROM [place] DUE TO LEFT LEG PAIN. ON br2 ARRIVAL TO ER PT DENIES PAIN TO LEFT LEG. Coronavirus screen: Client denies travel out of the [place] in the last 14 days. Ebola Screen: Patient denies exposure to infectious person. Initial Sepsis Screen: Does the patient meet any 2 criteria? No. Patient's initial sepsis screen is negative. Does the patient have a suspected source of infection? No. Patient's initial sepsis screen is negative. Risk Assessment: Do you want to hurt yourself or someone else? Patient reports no desire to harm self or others. Onset of symptoms is unknown. 23:41 Method Of Arrival: EMS: [facility] br2 23:41 Acuity: ISAIAS 3 br2 Triage Assessment: 23:44 General: Appears in no apparent distress. comfortable, Behavior is calm, cooperative. br2 Pain: Denies pain. Historical: - Allergies: 23:44 Codeine; br2 - PMHx: 23:44 Anxiety; Depression; Hemiplegia and Hemiparesis to Left dominant side; Hyperlipidemia; br2 Hypertension; Hypothyroidism; Major depressie disorder with psychotic symptoms; MUSCLE WEAKNESS; - Immunization history:: Adult Immunizations up to date. - Infectious Disease History:: Denies. - Social history:: Smoking status: Patient/guardian denies using tobacco, Patient/guardian denies using alcohol, street drugs. Screenin:44 [facility] ED Fall Risk Assessment (Adult) History of falling in the last 3 months, mf3 including since admission Yes- fall prone (multiple falls) (3 pts) Confusion or Disorientation No (0 pts) Intoxicated or Sedated No (0 pts) Impaired Gait Yes (1 pt) Mobility Assist Device Used Yes (1 pt) Altered Elimination Yes (1 pt) Score/Fall Risk Level 0 - 2 = Low Risk Oriented to surroundings. Abuse screen: Denies threats or abuse. Denies injuries from another. Nutritional screening: No deficits noted. Tuberculosis screening: No symptoms or risk factors identified. Never had TB. Assessment: 23:44 General: Appears in no apparent distress. comfortable, Behavior is calm, cooperative, mf3 appropriate for age. Pain: Denies pain. Neuro: Level of Consciousness is awake, alert, obeys commands, Oriented to person, place, time, situation. Cardiovascular: Capillary refill < 3 seconds. Respiratory: Airway is patent Trachea midline Respiratory effort is even, unlabored. GI: No signs and/or symptoms were reported involving the gastrointestinal system. : No signs and/or symptoms were reported regarding the genitourinary system. Derm: Skin is intact, Skin is dry, Skin is pink, warm \T\ dry. normal. 03/02 00:47 Reassessment: Patient and/or family updated on plan of care and expected duration. Pain cc6 level reassessed. Patient is alert, oriented x 3, equal unlabored respirations, skin warm/dry/pink. 02:30 Reassessment: Patient and/or family updated on plan of care and expected duration. Pain cc6 level reassessed. Patient is alert, oriented x 3, equal unlabored respirations, skin warm/dry/pink. 04:17 Reassessment: Patient appears in no apparent distress at this time. Patient and/or cc6 family updated on plan of care and expected duration. Pain level reassessed. Patient is alert, oriented x 3, equal unlabored respirations, skin warm/dry/pink. Patient states feeling better. Patient states symptoms have improved. 05:22 Reassessment: Patient appears in no apparent distress at this time. Patient and/or mf3 family updated on plan of care and expected duration. Pain level reassessed. Patient is alert, oriented x 3, equal unlabored respirations, skin warm/dry/pink. Patient states feeling better. Patient states symptoms have improved. Vital Signs: 03/01 23:41 BP 119 / 56; Pulse 54; Resp 18; Temp 96.9; Pulse Ox 98% ; Weight 97.52 kg; Height 5 ft. br2 0 in. ; Pain 0; 03/02 00:47 BP 140 / 45; Pulse 51; Resp 13; Pulse Ox 98% on R/A; cc6 02:49 BP 135 / 43; Pulse 49; Resp 14; Pulse Ox 97% on R/A; mf3 04:17 BP 140 / 37; Pulse 47; Resp 15; Temp 97; Pulse Ox 100% ; cc6 04:51 BP 134 / 50; Pulse 49; Resp 14; Pulse Ox 96% on R/A; cc6 05:22 BP 150 / 59; Pulse 49; Resp 18; Temp 97; Pulse Ox 97% ; Pain 0/10; mf3 03/01 23:41 Body Mass Index 41.99 (97.52 kg, 152.4 cm) br2 03/01 23:41 Pain Scale: Adult br2 05:22 Pain Scale: Adult mf3 [place] Coma Score: 03/01 23:44 Eye Response: spontaneous(4). Motor Response: obeys commands(6). Verbal Response: mf3 oriented(5). Total: 15. ED Course: 23:37 Patient arrived in ED. rv1 23:40 Harish Chaparro PA-C is PHCP. cp 23:40 Monster Lemon DO is Attending Physician. cp 23:44 Triage completed. br2 23:44 Tawanna Luo, RN is Primary Nurse. mf3 23:44 Arm band placed on right wrist. br2 23:44 Patient has correct armband on for positive identification. Bed in low position. Call 3 light in reach. Side rails up X2. Provided Education on: Pt educated on POC. 23:44 No provider procedures requiring assistance completed. mf3 23:44 Inserted saline lock: 20 gauge in right hand, using aseptic technique. mf3 23:58 Troponin HS Sent. mf3 23:58 NT PRO-BNP Sent. mf3 23:58 Magnesium Sent. mf3 23:58 LFT's Sent. mf3 23:58 CBC with Diff Sent. mf3 23:58 Basic Metabolic Panel Sent. mf3 23:59 Lactate w/ 2H reflex if indic. Sent. 3 03/02 00:36 XRAY Chest (1 view) In Process Unspecified. EDMS 00:36 Foot Left 3 View In Process Unspecified. EDMS 02:26 Harry Bowens, RN is Hospitalizing Provider. cp 03:05 US Extremity Venous Unilateral Ltd In Process Unspecified. EDMS 05:23 Patient admitted, IV remains in place. mf3 Administered Medications: 02:31 Drug: Rocephin IV 1 grams IV at calculated rate once; Given slow IV push per pharmacy ha1 instructions Route: IV; Rate: calculated rate; Site: right hand; 02:56 Follow up: Response: No adverse reaction mf3 04:19 Follow up: Response: No adverse reaction; IV Status: Completed infusion cc6 04:51 Follow up: Response: No adverse reaction cc6 Medication: 03/01 23:44 VIS not applicable for this client. 3 Outcome: 03/02 02:27 Decision to Hospitalize by Provider. cp 05:23 Admitted to Med/surg accompanied by nurse, accompanied by tech, via stretcher, room mf3 201, with chart, 05:23 Condition: stable 05:23 Instructed on follow up and referral plans. the need for admit, Demonstrated understanding of instructions, follow-up care, medications, 05:41 Patient left the ED. 3 Signatures: Dispatcher [employer] EDMS Harish Chaparro PA-C PAWendy Orellana cp RN RN ha1 Rajni Meek rv1 Jelena Goldstein RN RN br2 Candice Kim RN RN cc6 Tawanna Luo RN RN mf3
[2025-03-02] MEDS ORDERED: CEFTRIAXONE 1000 MG/VIAL ONE (02:29)
--- NOTE | 2025-03-02 02:50 | RAD REPORT ---
EXAM: XR Left Foot Complete, 3 or More Views CLINICAL HISTORY: PAIN TECHNIQUE: Frontal, lateral and oblique views of the left foot. COMPARISON: No relevant prior studies available. FINDINGS: Bones/joints: Osseous structures are diffusely osteopenic. No acute fracture. No discrete erosive o r destructive osseous changes. Mild hallux valgus with lateral subluxation of the first proximal phalangeal base relative to the metatarsal head. Scattered degenerative changes most pronounced at th e first metatarsophalangeal articulation. Soft tissues: Severe dorsal soft tissue swelling. No radiopaque foreign body. IMPRESSION: Severe dorsal soft tissue swelling. No discrete erosive or destructive osseous changes. Electronically signed by: Tomasa Wayne MD 03/02/2025 02:02 AM CDT RP Due to temporary technical issues with the PACS/[employer] reporting system, reports are being mirna d by the in-house radiologist without review as a courtesy to ensure prompt reporting the interpreting radiologist is fully responsible for the content of the report. Transcribed Date/Time: 03/02/2025 2:50 AM
[2025-03-02] MEDS ORDERED: ACETAMINOPHEN 325 MG TABLET PO PRN (04:18)
[2025-03-02 06:08] VITALS: O2SAT 97
[2025-03-02 06:14] VITALS: BMI 40.1
[2025-03-02] MEDS: D5 0.9 NS 1,000 ML IV SCH (06:22)
--- NOTE | 2025-03-02 07:05 | RAD REPORT ---
EXAM: Extremity Venous Uni Ltd US Left Lower Extremity Venous Duplex Doppler HISTORY: Pain, Swelling COMPARISON: US left leg vein 12/04/2024 TECHNIQUE: Grayscale, color Doppler, duplex Doppler, spectral Doppler images and analysis with compre ssion and augmentation of left lower extremity veins. FINDINGS: Left common femoral, greater saphenous, femoral, deep (profunda) femoral, popliteal, posterior tibial veins unremarkable without evidence of clot. IMPRESSION: No sonographic evidence of left lower extremity DVT. Electronically signed by: Max Olguin MD 03/02/2025 04:36 AM CDT RP Du e to temporary technical issues with the PACS/[employer] reporting system, reports are being signed by the in-house radiologist without review as a courtesy to ensure prompt reporting the [facility] radiologist is fully responsible for the content of the report. Transcribed Date/Time: 03/02/2025 7:05 AM
--- NOTE | 2025-03-02 08:04 | P.HP ---
Certification for Inpatient Patient admitted to: Observation With expected LOS: <2 Midnights Patient will require the following post-hospital care: Assisted (Patient will need to be transferred back to correction upon discharge.) Practitioner: I am a practitioner with admitting privileges, knowledge of patient current condition, hospital course, and medical plan of care. Services: Services provided to patient in accordance with Admission requirements found in Title 42 Section 412.3 of the Code of Federal Regulations Patient History Date of Service: 03/02/25 Reason for admission: Hypotension, UTI, DREA, bilateral leg pain. History of Present Illness: Patient is a 74-year-old female who is a current resident at the [facility] [place], past medical history essential pretension, CVA, hypercholesteremia, brought to the ER tonight complaining of pain left lower extremity, and hypotensive with no associated chest pain or shortness of breath. Upon arrival to ER, patient initial systolic was in the 70s, after 500 mL NS patient blood pressure improved. On admission assessment, patient still endorses left lower extremity pain with no sign of cellulitis. Patient is a very poor historian. Incidental findings in ER UA positive for UTI. Patient had left lower extremity venous duplex study to rule out DVT, impression: No sonographic evidence of left lower extremity DVT. X-ray left foot. Impression: Severe dorsal soft tissue swelling. No discrete erosive or destructive osseous changes. Allergies codeine Allergy (Verified 03/02/25 06:11) Itching Home Medications: Acetaminophen 500 mg PO Q6H PRN 03/02/25 Aspirin 1 tab PO DAILY 03/02/25 Atorvastatin Calcium [Lipitor] 1 tab PO BEDTIME 03/02/25 Baclofen 1 tab PO BID 03/02/25 Carbidopa/Levodopa [Carbidopa-Levodopa 10-100 Tab] 1 tab PO TID 03/02/25 Clopidogrel Bisulfate [Plavix*] 1 tab PO DAILY 03/02/25 Ferrous Sulfate [Iron] 1 tab PO BID 03/02/25 Furosemide 2 tab PO DAILY 03/02/25 Gabapentin 1 cap PO TID 03/02/25 Hydralazine HCl 1 tab PO TID 03/02/25 Irbesartan 1 tab PO DAILY 03/02/25 Levothyroxine Sodium 1 tab PO DAILY 03/02/25 Loperamide HCl [Imodium A-D] 2 tab PO Q4H 03/02/25 Meclizine HCl 1 tab PO Q6H PRN 03/02/25 Metoprolol Tartrate 1 tab PO BID 03/02/25 Ondansetron [Zofran (Odt)*] 1 tab PO Q6H PRN 03/02/25 PARoxetine HCL [Paxil] 40 mg PO BEDTIME 03/02/25 Pantoprazole Sodium [Protonix] 1 tab PO DAILY 03/02/25 Polyethyl Gly 3350 [Glycolax*] 17 gm PO DAILY 03/02/25 Potassium Chloride 1 tab PO DAILY 03/02/25 Sennosides/Docusate Sodium [Senna Plus 8.6-50 mg Tablet] 2 tab PO BID 03/02/25 Tramadol HCl [Ultram] 50 mg PO TID 03/02/25 cloNIDine HCL [Clonidine HCl] 1 tab PO TID 03/02/25 levETIRAcetam [Levetiracetam] 1 tab PO BID 03/02/25 - Past Medical/Surgical History Has patient received pneumonia vaccine in the past: Yes Diabetic: No -: hypertension -: hypothyroidism -: high cholesterol -: diverticulitis perforated -: CAD -: Anxiety -: Multiple CVA -: Carotid artery disease -: Dementia -: cardiac stent, endarterectomy -: thyroidectomy -: cholecystectomy -: appendectomy -: tubal ligation -: bladder suspension -: knee SX -: hysterectomy Psychosocial/ Personal History: Patient is resident of [facility] - Family History Brother -: Heart disease, Hypertension, Diabetes, Other (see notes) Notes: parkinsons Sister -: Hypertension, GI disease, Other (see notes) Notes: diverticulosis - Social History Smoking Status: Former smoker Alcohol use: No CD- Drugs: No Caffeine use: Yes Place of Residence: [place] Review of Systems 10-point ROS is otherwise unremarkable General: Other (Pain to left lower extremity.) Musculoskeletal: Leg Pain (Left leg pain.) Neurological: Other (Patient is bed bound.) Physical Examination - Vital Signs Temperature: 97 F Blood Pressure: 150/59 Pulse: 49 Respirations: 18 - Physical Exam General: Alert, In no apparent distress, Oriented x3, Cooperative HEENT: Atraumatic, Normocephalic, PERRLA, Mucous membr. moist/pink, Sclerae nonicteric Neck: Supple, 2+ carotid pulse no bruit, JVD not distended, No Thyromegaly, Without JVD or thyroid abnormality Respiratory: Clear to auscultation bilaterally, Normal air movement Cardiovascular: Regular rate/rhythm, Normal S1 S2, No gallops, No rubs, No murmurs, Systolic murmur Capillary refill: <2 Seconds Gastrointestinal: Normal bowel sounds, Soft and benign, Non-distended, W/out hepatomegaly, No ascites, No tenderness, No masses Musculoskeletal: No clubbing, No contractures, No warmth, Tenderness (Left lower extremity pain) Integumentary: No rashes, No breakdown, No significant lesion, No cyanosis, Tenderness/swelling (Left lower extremity.) Neurological: Normal speech, Normal tone, Sensation intact, Other (History of CPAP) Lymphatics: No axilla or inguinal lymphadenopathy - Studies Laboratory Data (last 24 hrs) 03/02/25 03/02/25 00:00 00:00 WBC 9.40 Hgb 9.6 L Hct 29.8 L Plt Count 304 Sodium 138 Potassium 4.1 BUN 30 H Creatinine 0.93 Glucose 101 Magnesium 2.1 Total Bilirubin 0.2 AST 13 L ALT < 14 Alkaline Phosphatase 82 Female Exam - Breasts Breasts: Normal configuration, Normal contours, Symmetrical Assessment and Plan - Plan Patient admitted observation with diagnosis of DREA, UTI, bilateral leg pain, hypotension. (1) UTI, DREA, hypotension, left leg pain. -Ceftriaxone 1 g IV daily. -D5 NS at 50 mL/ hr x 1 L -Order follow-up CMP. -Albumin 25 g IV x 1. Patient albumin 2.8. (2) DVT prophylaxis. -Heparin 5K units SQ every 8 hours. (3) Home meds to resume when reconciled. Discharge Plan: Intermediate Plan to discharge in: 48 Hours - Advance Directives Does patient have a Living Will: Yes Does patient have a Durable POA for Healthcare: No - Code Status/Comfort Care Code Status Assessed: No Code Status: Full Code Critical Care: No Time Spent Managing Pts Care (In Minutes): 55
[2025-03-02] MEDS: HEPARIN 5000 UNIT/ML 1 ML VIAL SQ SCH (09:32)
[2025-03-02] MEDS ORDERED: HOME MED 1 EA UNK (Meclizine Hcl [Meclizine Hcl] 25 MG Tablet) PO PRN (13:43)
[2025-03-02] MEDS ORDERED: ONDANSETRON 4 MG (ODT) TAB PO PRN (13:43)
[2025-03-02] MEDS ORDERED: ACETAMINOPHEN 500 MG TAB PO PRN (13:43)
--- NOTE | 2025-03-02 13:49 | P.PN ---
Date of Service: 03/02/25 Subjective Patient crying out that she wants to go home Physical Examination - Vital Signs reviewed - Physical Exam General: Alert, In no apparent distress, Oriented x3, Cooperative Respiratory: Clear to auscultation bilaterally, Normal air movement Cardiovascular: Regular rate/rhythm, Normal S1 S2, No gallops, No rubs, No murmurs, Systolic murmur Gastrointestinal: Normal bowel sounds, Soft and benign, Non-distended, W/out hepatomegaly, No ascites, No tenderness, No masses Musculoskeletal: No clubbing, No contractures, No warmth, Tenderness (Left lower extremity pain) Integumentary: No rashes, No breakdown, No significant lesion, No cyanosis, Tenderness/swelling (Left lower extremity.) Neurological: No focal deficits (History of CPAP) Assessment and Plan - Assessment/Plan Patient admitted observation with diagnosis of DREA, UTI, bilateral leg pain, hypotension. (1) UTI, DREA, hypotension, left leg pain. -Ceftriaxone 1 g IV daily. -D5 NS at 50 mL/ hr x 1 L -Order follow-up CMP. -Albumin 25 g IV x 1. Patient albumin 2.8. (2) DVT prophylaxis. -Heparin 5K units SQ every 8 hours. (3) Home meds to resume when reconciled. Discharge Plan: Halfway Plan to discharge in: 48 Hours - Advance Directives Does patient have a Living Will: Yes Does patient have a Durable POA for Healthcare: No - Code Status/Comfort Care Code Status Assessed: No Code Status: Full Code Critical Care: No Time Spent Managing Pts Care (In Minutes): 55
[2025-03-02] MEDS: CARBIDOPA LEVODOPA PO SCH (14:00)
[2025-03-02] MEDS ORDERED: HOME MED 1 EA UNK (Hydralazine Hcl [Hydralazine Hcl] 100 MG Tablet) PO SCH (14:00)
[2025-03-02] MEDS ORDERED: MECLIZINE HCL 12.5 MG TAB PO PRN (14:10)
[2025-03-02] MEDS: HYDRALAZINE HCL 25 MG TABLET PO SCH (14:30)
[2025-03-02] MEDS: CEFTRIAXONE 1,000 MG in NA CHLORIDE 0.9% 50 ML IVPB ONE (14:30)
[2025-03-02] MEDS: GABAPENTIN 100 MG CAP PO SCH (14:31)
[2025-03-02] MEDS: TRAMADOL HCL 50 MG TAB PO SCH (14:31)
[2025-03-02 16:27] VITALS: BP 124/56; TEMP 98.3
[2025-03-02] MEDS ORDERED: CEFTRIAXONE 1,000 MG in NA CHLORIDE 0.9% 50 ML IVPB SCH (21:00)
[2025-03-02] MEDS ORDERED: HOME MED 1 EA UNK (Paroxetine Hcl [Paxil] 40 MG Tablet) PO SCH (21:00)
[2025-03-02] MEDS ORDERED: ATORVASTATIN 80 MG TAB PO SCH (21:00)
[2025-03-02] MEDS ORDERED: DOCUSATE NA/SENNA CONC 1 TAB PO SCH (21:00)
[2025-03-02] MEDS ORDERED: BACLOFEN 10 MG TAB PO SCH (21:00)
[2025-03-02] MEDS ORDERED: FERROUS SULFATE 325 MG TAB PO SCH (21:00)
[2025-03-02] MEDS ORDERED: METOPROLOL TAR 50 MG TAB PO SCH (21:00)
[2025-03-02] MEDS ORDERED: levETIRAcetam 500 MG TAB PO SCH (21:00)
[2025-03-03] MEDS ORDERED: PANTOPRAZOLE 40MG TABLET PO SCH (07:30)
[2025-03-03] MEDS ORDERED: HOME MED 1 EA UNK (Irbesartan [Irbesartan] 300 MG Tablet) PO SCH (09:00)
[2025-03-03] MEDS ORDERED: VALSARTAN 160 MG TAB PO SCH (09:00)
[2025-03-03] MEDS ORDERED: POLYETHYL GLY 3350 17 GM/DOSE PO SCH (09:00)
[2025-03-03] MEDS ORDERED: CLOPIDOGREL 75 MG TABLET PO SCH (09:00)
[2025-03-03] MEDS ORDERED: ASPIRIN 81 MG CHEWABLE TABLET PO SCH (09:00)
[2025-03-03] MEDS ORDERED: FUROSEMIDE 40 MG TABLET PO SCH (09:00)
[2025-03-03] MEDS ORDERED: HOME MED 1 EA UNK (Potassium Chloride [Potassium Chloride] 20 MEQ Tablet.Er) PO SCH (09:00)
[2025-03-03] MEDS ORDERED: LEVOTHYROXINE SOD 0.125 MG TAB PO SCH (09:00)
[2025-03-03] MEDS ORDERED: POTASSIUM CL SA 10 MEQ TAB PO SCH (09:00)
== END 2025-03-02 17:48 ==
LOC: ER 23:33 → INTOOBSV 03-02 04:15 → ERHOLD 03-02 04:15 → 2ND 03-02 05:33
PROVIDERS: ADMIT Hospitalist; ATTEND Hospitalist
DX: N17.9 Acute kidney failure, unspecified (principal); N39.0 Urinary tract infection, site not specified; I95.9 Hypotension, unspecified; M79.605 Pain in left leg; M79.604 Pain in right leg; F41.9 Anxiety disorder, unspecified; F32.A Depression, unspecified; E78.5 Hyperlipidemia, unspecified; E03.9 Hypothyroidism, unspecified
CPT/HCPCS: 96365; 93005; 87088; 85025; 81001; 87086; 80048; 36415; 83735; 80076; 83605; 87077; 87186; 84484; 83880; 71045; 73630; 93971; 99285; 96366; J1644; J7042; J0696 ×2; G0378 ×3